=== PATIENT | male | born 1960 | race Caucasian/White ===

== ENCOUNTER 2017-05-13 17:04 | Inpatient (IN) | payer BC ==
[2017-05-13] MEDS ORDERED: RX INFO: IV CONTRAST WAS GIVEN 1 EACH MISC MISCELLANE PRN (17:17)
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
[2017-05-13] MEDS ORDERED: ETOMIDATE 2 MG/ML 10 ML VIAL IVP STA (17:40)
[2017-05-13 17:44] LABS: Glucose,Whole Blood 91 mg/dL (75-99)
[2017-05-13] MEDS ORDERED: MORPHINE SULFATE 4 MG/ML SYRINGE IVP STA (17:46)
[2017-05-13 17:48] LABS: Basophils # (A) 0.1 k/uL (0-0.2); Basophils % (A) 1 %; Eosinophils # (A) 0.3 k/uL (0-0.7); Eosinophils % (A) 5 %; HCT 43.2 % (39.0-53.0); HGB 14.5 gm/dL (13.0-17.5); Lymphocytes # (A) 1.7 k/uL (1.0-4.8); Lymphocytes % (A) 27 %; MCH 32.8 pg (25.0-35.0); MCHC 33.5 g/dL (31.0-37.0); MCV 97.9 fL (80.0-100.0); Mean Platelet Volume 7.2; Monocytes # (A) 0.4 k/uL (0-1.0); Monocytes % (A) 6 %; Neutrophils # (A) 3.6 k/uL (1.3-7.7); Neutrophils % (A) 58 %; Platelet Count 267 k/uL (150-450); RBC 4.41 m/uL (4.30-5.90); RDW 13.6 % (11.5-15.5); WBC 6.1 k/uL (3.8-10.6)
[2017-05-13 17:59] LABS: ALT 50 U/L (21-72); AST 61 U/L (17-59); Albumin 4.6 g/dL (3.5-5.0); Alkaline Phosphatase 75 U/L (38-126); Amylase 66 U/L (30-110); Anion Gap 17 mmol/L; Blood Urea Nitrogen 15 mg/dL (9-20); Calcium 9.6 mg/dL (8.4-10.2); Carbon Dioxide 20 mmol/L (22-30); Chloride 109 mmol/L (98-107); Glucose 91 mg/dL (74-99); Lipase 198 U/L (23-300); Potassium 4.6 mmol/L (3.5-5.1); Sodium 146 mmol/L (137-145); Total Bilirubin 0.5 mg/dL (0.2-1.3); Total Protein 7.7 g/dL (6.3-8.2)
[2017-05-13 18:00] LABS: Partial Thromboplastin Time 22.7 sec (22.0-30.0); Prothrombin Time 10.2 sec (9.0-12.0)
[2017-05-13 18:02] LABS: Creatine Kinase 178 U/L (55-170)
[2017-05-13 18:04] LABS: Alcohol 260 mg/dL
[2017-05-13 18:13] LABS: Creatine Kinase MB 1.3 ng/mL (0.0-2.4); Troponin I <0.012 ng/mL (0.000-0.034)
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
--- NOTE | 2017-05-13 18:46 | XR ---
EXAMINATION TYPE: XR ankle complete LT DATE OF EXAM: 05/13/2017 CLINICAL HISTORY: Post reduction of the trimalleolar displaced fracture TECHNIQUE: Frontal, lateral and oblique images of the left ankle are obtained. COMPARISON: Left ankle x-ray earlier today.. FINDINGS: Overlying fiberglass cast material is seen which is noted to lower radiographic sensitivity . Acute transverse fracture through medial malleolus is redemonstrated. Acute comminuted fracture lat eral malleolus is again seen. Oblique fracture deformity posterior malleolus is redemonstrated. There is marked improved alignment after reduction, there is still slight posterior translation of the vera us relative to distal tibia. Improved ankle mortise symmetry there is present after reduction with so me lateral narrowing remaining present. IMPRESSION: There is marked improved alignment after reduction and casting of acute displaced trimal leolar fracture.
[2017-05-13] MEDS ORDERED: NALOXONE 0.4 MG/ML 1 ML VIAL IV PRN (18:53)
[2017-05-13] MEDS ORDERED: MORPHINE SULFATE 4 MG/ML SYRINGE IVP PRN (18:53)
[2017-05-13] MEDS ORDERED: SODIUM CHLORIDE 0.9% 1,000 ML IV SCH (19:00)
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
[2017-05-13 20:21] LABS: Appearance,Urine Clear (Clear); Bilirubin,Urine Negative (Negative); Blood,Urine Negative (Negative); Color,Urine Colorless; Glucose,Urine (UA) Negative (Negative); Ketones,Urine Negative (Negative); Leukocyte Esterase,Urine Negative (Negative); Nitrite,Urine Negative (Negative); Protein,Urine Negative (Negative); Specific Gravity,Urine 1.016 (1.001-1.035); Urobilinogen,Urine <2.0 mg/dL (<2.0)
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
[2017-05-13 20:32] LABS: Cocaine Screen,Urine Not Detected (NotDetected); Phencyclidine Screen,Urine Not Detected (NotDetected); Urn Cannabinoid Scrn Detected (NotDetected)
[2017-05-13 20:33] LABS: Amphetamine Screen,Urine Not Detected (NotDetected); Barbiturate Screen,Urine Not Detected (NotDetected); Benzodiazepines Screen,Urine Not Detected (NotDetected); Methadone Screen, Urine Not Detected (NotDetected); Opiate Screen,Urine Detected (NotDetected); Oxycodone Screen, Urine Not Detected (NotDetected); Tricyclic Antidepressant,Urine Not Detected (NotDetected)
[2017-05-13] MEDS: MORPHINE SULFATE 4 MG/ML SYRINGE IVP PRN (22:01)
[2017-05-13] MEDS: HYDROcodone/APAP 5-325MG 1 EACH TAB PO PRN (23:25)
[2017-05-13] MEDS: SODIUM CHLORIDE 0.9% 1,000 ML IV SCH (23:26)
[2017-05-14] MEDS: MORPHINE SULFATE 4 MG/ML SYRINGE IVP PRN ×4 (01:03→20:14)
[2017-05-14] MEDS: HYDROcodone/APAP 5-325MG 1 EACH TAB PO PRN ×4 (06:31→23:55)
[2017-05-14] MEDS: SODIUM CHLORIDE 0.9% 1,000 ML IV SCH ×3 (08:24→23:25)
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
[2017-05-14 10:05] LABS: Basophils % (A) 1 %; Eosinophils # (A) 0.1 k/uL (0-0.7); Eosinophils % (A) 1 %; HCT 40.7 % (39.0-53.0); HGB 13.8 gm/dL (13.0-17.5); Lymphocytes # (A) 0.9 k/uL (1.0-4.8); Lymphocytes % (A) 12 %; MCH 33.5 pg (25.0-35.0); MCHC 33.9 g/dL (31.0-37.0); MCV 98.7 fL (80.0-100.0); Mean Platelet Volume 7.7; Monocytes # (A) 0.6 k/uL (0-1.0); Monocytes % (A) 8 %; Neutrophils # (A) 5.8 k/uL (1.3-7.7); Neutrophils % (A) 78 %; Platelet Count 235 k/uL (150-450); RBC 4.12 m/uL (4.30-5.90); RDW 13.7 % (11.5-15.5); WBC 7.4 k/uL (3.8-10.6)
[2017-05-14 10:14] LABS: ALT 43 U/L (21-72); AST 41 U/L (17-59); Albumin 4.1 g/dL (3.5-5.0); Alkaline Phosphatase 84 U/L (38-126); Anion Gap 12 mmol/L; Blood Urea Nitrogen 11 mg/dL (9-20); Calcium 9.1 mg/dL (8.4-10.2); Carbon Dioxide 24 mmol/L (22-30); Chloride 106 mmol/L (98-107); Glucose 116 mg/dL (74-99); Potassium 3.7 mmol/L (3.5-5.1); Sodium 142 mmol/L (137-145); Total Bilirubin 0.8 mg/dL (0.2-1.3)
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
[2017-05-14] MEDS: amLODIPine 10 MG TAB PO SCH (16:17)
[2017-05-14] MEDS: METOPROLOL TARTRATE 25 MG TAB PO SCH (16:17)
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
[2017-05-14] MEDS: ENOXAPARIN 30 MG/0.3 ML SYRINGE SQ SCH (18:02)
[2017-05-14] MEDS ORDERED: ATORVASTATIN 80 MG TAB PO SCH (21:00)
[2017-05-15] MEDS: MORPHINE SULFATE 4 MG/ML SYRINGE IVP PRN (04:47)
[2017-05-15] MEDS: HYDROcodone/APAP 5-325MG 1 EACH TAB PO PRN ×2 (07:13→13:03)
[2017-05-15] MEDS: METOPROLOL TARTRATE 25 MG TAB PO SCH (07:43)
[2017-05-15] MEDS: amLODIPine 10 MG TAB PO SCH (07:43)
[2017-05-15] MEDS: ENOXAPARIN 30 MG/0.3 ML SYRINGE SQ SCH (07:43)
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
[2017-05-15] MEDS ORDERED: LOSARTAN-HCTZ 50-12.5 MG 1 EACH TAB PO SCH (09:00)
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
--- NOTE | 2017-05-15 10:13 | P.DS ---
Providers Date of admission: 05/13/17 18:53 Attending physician: Magdalena Weber Consults: 05/13/17 18:53 Consult Physician Stat Consulting Provider: Johnny Noriega Consult Reason/Comments: Trimalleolar fracture Do you want consulting provider notified?: Yes 05/13/17 20:00 Consult Physician Stat Consulting Provider: Ja Eli Consult Reason/Comments: Abdominal aortic aneurysm Do you want consulting provider notified?: Yes 05/13/17 20:41 Consult Physician Urgent Consulting Provider: Elmo Thomas Consult Reason/Comments: medical care Do you want consulting provider notified?: Yes Primary care physician: Elmo Thomas Plan - Discharge Summary New Discharge Prescriptions: New Hydrocodone/Acetaminophen [[place] 5-325] 1 - 2 each PO Q6HR PRN #90 tab PRN Reason: Pain No Action Meloxicam 15 mg PO DAILY Metoprolol Tartrate [Lopressor] 25 mg PO DAILY Clopidogrel [Plavix] 75 mg PO DAILY #30 tab amLODIPine BESYLATE [Norvasc] 10 mg PO DAILY 30 Days tab Aspirin EC [Ecotrin] 325 mg PO DAILY #30 tablet. Atorvastatin [Lipitor] 80 mg PO HS Losartan/Hydrochlorothiazide [Hyzaar 100-25 Tablet] 1 tab PO DAILY Discharge Medication List Meloxicam 15 mg PO DAILY 10/21/13 [History] Metoprolol Tartrate [Lopressor] 25 mg PO DAILY 10/21/13 [History] Clopidogrel [Plavix] 75 mg PO DAILY #30 tab 10/22/13 [Rx] Aspirin EC [Ecotrin] 325 mg PO DAILY #30 tablet. 08/23/14 [Rx] amLODIPine BESYLATE [Norvasc] 10 mg PO DAILY 30 Days tab 08/23/14 [Rx] Atorvastatin [Lipitor] 80 mg PO HS 05/13/17 [History] Losartan/Hydrochlorothiazide [Hyzaar 100-25 Tablet] 1 tab PO DAILY 05/13/17 [ History] Hydrocodone/Acetaminophen [[place] 5-325] 1 - 2 each PO Q6HR PRN #90 tab 05/14/17 [Rx] Follow up Appointment(s)/Referral(s): Elmo Thomas DO [Primary Care Provider] - 1 Week Johnny Noriega MD [STAFF PHYSICIAN] - 05/16/17 9:00 am (Patient may follow-up with Dr. Noriega at [facility] in 1-2 days following discharge.) Ja Eli MD [STAFF PHYSICIAN] - 05/18/17 10:45 am Patient Instructions/Handouts: How to Stop Smoking (DC) Activity/Diet/Wound Care/Special Instructions: Crutches ordered through [facility]: #[phone] 1. Nonweightbearing on the left lower extremity 2. Elevate and apply ice for comfort support as needed over the left lower extremity 3. Keep her splint over the left lower extremity clean, dry, and intact 4. May use crutches to aid in ambulation as needed 5. Discharge if ok with Dr.. Eli/vascular surgery Discharge Disposition: HOME SELF-CARE
[2017-05-15] MEDS ORDERED: MULTIVITAMINS, THERA 1 EACH TAB PO SCH (12:00)
[2017-05-15] MEDS ORDERED: THIAMINE 100 MG TAB PO SCH (12:00)
[2017-05-15] MEDS: SODIUM CHLORIDE 0.9% 1,000 ML IV SCH (13:52)
[2017-05-15 14:49] VITALS: BP 128/69; PULSE 62; RESP 18; TEMP 98
== END 2017-05-15 17:58 | disposition home health service (06) | DRG 563 ==
LOC: EC 17:04 → 4MS4W 18:53
PROVIDERS: ADMIT Surgery; ATTEND Surgery
PROC: 0QSKXZZ Reposition Left Fibula, External Approach (ICD-10-PCS; principal; 2017-05-13)
PROC: 0QSHXZZ Reposition Left Tibia, External Approach (ICD-10-PCS; 2017-05-13)
DX: S82.852A Displaced trimalleolar fracture of left lower leg, initial encounter for closed fracture (principal); E87.2 Acidosis; E78.5 Hyperlipidemia, unspecified; F10.129 Alcohol abuse with intoxication, unspecified; F17.210 Nicotine dependence, cigarettes, uncomplicated; F41.9 Anxiety disorder, unspecified; I10 Essential (primary) hypertension; I25.10 Atherosclerotic heart disease of native coronary artery without angina pectoris; I25.2 Old myocardial infarction; I71.4 Abdominal aortic aneurysm, without rupture; K21.9 Gastro-esophageal reflux disease without esophagitis; M10.9 Gout, unspecified; M15.9 Polyosteoarthritis, unspecified; E66.9 Obesity, unspecified; Z68.34 Body mass index [BMI] 34.0-34.9, adult; Z79.02 Long term (current) use of antithrombotics/antiplatelets; Z79.82 Long term (current) use of aspirin; Z79.899 Other long term (current) drug therapy; Z95.5 Presence of coronary angioplasty implant and graft; Z82.49 Family history of ischemic heart disease and other diseases of the circulatory system; V86.52XA Driver of snowmobile injured in nontraffic accident, initial encounter; Y92.9 Unspecified place or not applicable; Y90.8 Blood alcohol level of 240 mg/100 ml or more
CPT/HCPCS: 27818; 36415; 70450; 71045; 71260; 72125; 72170; 74177; 80053; 80306; 80320; 81003; 82150; 82550; 82553; 83605; 83690; 84484; 85025; 85610; 85730; 86850; 86900; 86901; 93005; 96374; 99156; 99291

== ENCOUNTER 2017-05-24 11:06 | Day surgery (SDC) | payer BC ==
[2017-05-19 12:16] VITALS: BMI 32.5
[~2017-05-24 11:06] MED LIST: HYDROmorphone 0.5 MG/0.5 ML SYRINGE IVP PRN; LACTATED RINGERS 1,000 ML IV SCH; ONDANSETRON 4 MG/2 ML VIAL IVP PRN; ceFAZolin IN SWFI 2 GM/20 ML SYRINGE IVP ONE
[2017-05-24 11:29] VITALS: RESP 16
[2017-05-24] MEDS ORDERED: ONDANSETRON 4 MG/2 ML VIAL ONE ×2 (12:03→12:06)
[2017-05-24] MEDS ORDERED: LIDOCAINE 1% 20 ML VIAL (10MG/ML) FOR IV START INTRADERMA ONE (12:04)
[2017-05-24] MEDS ORDERED: HYDROmorphone (PF) 1 MG/ML ONE (12:06)
[2017-05-24] MEDS ORDERED: MIDAZOLAM 2 MG/2 ML VIAL ONE (12:06)
[2017-05-24] MEDS ORDERED: PROPOFOL 10 MG/ML 20 ML VIAL IV ONE (12:06)
[2017-05-24] MEDS ORDERED: DEXAMETHASONE SOD PHOS (MDV) 100 MG/10 ML VIAL ONE (12:06)
[2017-05-24] MEDS ORDERED: LIDOCAINE 1% INJ 10MG/ML (20 ML MDV) ONE (12:06)
[2017-05-24] MEDS ORDERED: fentaNYL (PF) 50 MCG/ML 2 ML AMP ONE (12:06)
[2017-05-24] MEDS ORDERED: BUPIVACAINE (PF) 0.25% 30 ML VIAL SQ ONE (13:28)
[2017-05-24 14:02] VITALS: TEMP 98.5
[2017-05-24] MEDS: fentaNYL (PF) 50 MCG/ML 2 ML AMP IVP ONE ×2 (14:05→14:19)
[2017-05-24] MEDS ORDERED: LACTATED RINGERS 1,000 ML IV ONE ×2 (14:10)
--- NOTE | 2017-05-24 14:26 | FL ---
EXAMINATION TYPE: FL guidance operating room DATE OF EXAM: 05/24/2017 CLINICAL HISTORY: Open reduction internal fixation of the left ankle TECHNIQUE: Fluoroscopy. COMPARISON: None. FINDINGS/IMPRESSION: Fluoroscopic guidance was provided during procedure performed by Dr. Noriega. A total of 80 seconds of fluoroscopic time was utilized during the procedure and 3 spot images was acqu ired.
[2017-05-24] MEDS ORDERED: KETOROLAC 30 MG/ML 1 ML VIAL IVP ONE (14:42)
[2017-05-24] MEDS: MEPERIDINE 50 MG/ML SYRINGE IVP ONE ×2 (14:42→14:45)
--- NOTE | 2017-05-24 14:49 | P.OP ---
Date of Procedure: 05/24/17 Procedure(s) Performed: PREOPERATIVE DIAGNOSES: 1. Left ankle trimalleolar fracture POSTOPERATIVE DIAGNOSES: Left ankle trimalleolar fracture PROCEDURES PERFORMED: 1. Left ankle lateral malleolus fracture open reduction and internal fixation. 2. Left ankle medial malleolus fracture open reduction and internal fixation 3. Left ankle posterior malleolus fracture closed treatment ANESTHESIA: pre press manager: Cinthia Jones PA-C (assistance with exposure, hemostasis, retraction, fixation, closure, dressing, splint) COMPLICATIONS: None ESTIMATED BLOOD LOSS: Less than 10 mL. TOURNIQUET: approximately 70 minutes DISPOSITION: To post-anesthesia care unit INDICATIONS: The patient is a [], who presents to the operating room today for fixation of ankle fracture. The fracture is a trimalleolar fracture with initial significant displacement. He is status post closed reduction in the emergency room. [] has iced the ankle and elevated for approximately 10 days and is now ready for surgery. I have recommended open reduction and internal fixation of this ankle fracture. I have explained the details of this surgery thoroughly and also explained the potential risks and complications. These are inclusive of, but not limited to: bleeding, infection, scarring, discomfort, blood vessel and nerve damage, stiffness, weakness, arthritis, persistent limp, malunion, nonunion, need for further surgery, failure to relieve symptoms, persistence or worsening of problems, , and other risks. The patient is aware of these risks and agrees to proceed with surgery. The consent form has been signed. PROCEDURE: After appropriate consent was obtained, the patient was taken to the operating room and placed supine on the operating table. General anesthesia was initiated. The ankle was removed from the splint and examined for any signs of significant fracture blisters or swelling that would prevent continuation of the surgery. Skin appeared healthy and intact, swellling was moderate but not excessive. The limb was prepped and draped in the usual aseptic fashion with ChloraPrep, and the patient was given IV antibiotics. The tourniquet was then inflated to 350 mmHg after careful exsanguination of the limb. Time out was called, confirming patient identity, side, procedure, and administration of antibiotics. Incision was created laterally, centered over the fracture site, for a length of approximately 4 inches. The incision was carried down through skin and into subcutaneous tissues, and blunt dissection then proceeded down to fascia. Fascia was split in line with the incision and the peroneal muscles were retracted posteriorly. The fracture site was exposed with subperiosteal dissection for as much exposure of the bone as was necessary. Fracture hematoma was evacuated and the interior of the fracture site was meticulously cleansed with irrigation and manual extraction of organizing hematoma and bone debris. The fracture was minimally comminuted and oblique in orientation. The fracture was mobilized using a elizabeth elevator and reduction was accomplished using a bone clamp, which was also used to secure the fracture. Anatomic reduction was accomplished. An interfragmentary screw, anterior to posterior, was placed using lag technique. Next, a precontoured fibular plate from [employer] was selected for size and side. The proximal holes were filled with fully threaded 3.5 mm cortical screws. Distal holes were filled with 4 2.7 mm locking screws. No evidence of joint penetration on the mini-C-arm views was noted. Next, the medial malleolus was evaluated and treated. An incision was created for approximately 2.5 inches on the medial aspect of the ankle, and carried down through skin sharply and then bluntly using a dissecting scissor down to fascia and periosteum. The fracture fragment was able to be mobilized and secured with a [id number] reduction forceps. Subsequently, a guidepin was placed across the fracture site and several adjustments were made of this guidepin so that the position was perfect on C-arm imaging. The outer cortex was reamed, and appropriately sized 4.0 cannulated cancellus screw(s) with long threads were inserted over the guidepin until they were fully deployed. Final C -arm images were then taken, showing anatomic alignment of the mortise and medial malleolar fracture site. The fractures were noted to be in anatomic position and stress testing under C- arm imaging showed no significant migration, shift, or tilt of the talus with external rotation stress, hindfoot inversion or eversion. Posterior malleolar fracture remained minimally displaced. Screw lengths were noted to be appropriate and the incision was then irrigated thoroughly using normal saline. Tourniquet was deflated and hemostasis was obtained using electrocautery. Fascial closure was performed with 0-Vicryl suture, subcutaneous closure with 2- 0 Vicryl suture. Skin was closed with diego. Sterile dressing was applied and well padded, well molded short leg splint was applied with the ankle in neutral. Patient tolerated the procedure well and taken to recovery room in stable condition. Sponge and needle counts were correct.
[2017-05-24 15:21] VITALS: BP 152/96; PULSE 78
== END 2017-05-24 15:56 | disposition home or self-care (01) ==
LOC: OR 11:06
PROVIDERS: ATTEND Orthopaedic Surgery
DX: S82.852A Displaced trimalleolar fracture of left lower leg, initial encounter for closed fracture (principal); V86.92XA Unspecified occupant of snowmobile injured in nontraffic accident, initial encounter; I10 Essential (primary) hypertension; I71.4 Abdominal aortic aneurysm, without rupture; I25.10 Atherosclerotic heart disease of native coronary artery without angina pectoris; E78.2 Mixed hyperlipidemia; K21.9 Gastro-esophageal reflux disease without esophagitis; Z95.5 Presence of coronary angioplasty implant and graft; I25.2 Old myocardial infarction; Z79.82 Long term (current) use of aspirin; Z79.899 Other long term (current) drug therapy; Z79.1 Long term (current) use of non-steroidal anti-inflammatories (NSAID); Z79.02 Long term (current) use of antithrombotics/antiplatelets; F17.210 Nicotine dependence, cigarettes, uncomplicated
CPT/HCPCS: 73600; 27822; C1713; J2250; J2175; J2405; J2001; J3010; J1885; J1170; J1100; J2704; J0690

== ENCOUNTER → 2017-08-02 | Outpatient (CLI) | payer BC ==
[2017-08-02 17:06] LABS: HCT 46.4 % (39.0-53.0); HGB 15.5 gm/dL (13.0-17.5); MCH 33.3 pg (25.0-35.0); MCHC 33.4 g/dL (31.0-37.0); MCV 99.8 fL (80.0-100.0); Macrocytosis Slight; Mean Platelet Volume 7.2; Platelet Count 264 k/uL (150-450); RBC 4.65 m/uL (4.30-5.90); RDW 15.4 % (11.5-15.5); WBC 7.2 k/uL (3.8-10.6)
[2017-08-02 17:13] LABS: Anion Gap 14 mmol/L; Blood Urea Nitrogen 15 mg/dL (9-20); Carbon Dioxide 23 mmol/L (22-30); Chloride 107 mmol/L (98-107); Glucose 94 mg/dL (74-99); Potassium 4.2 mmol/L (3.5-5.1); Sodium 144 mmol/L (137-145)
[2017-08-02 17:14] LABS: ALT 64 U/L (21-72); AST 100 U/L (17-59); Albumin 4.6 g/dL (3.5-5.0); Alkaline Phosphatase 117 U/L (38-126); Calcium 9.5 mg/dL (8.4-10.2); Total Bilirubin 0.7 mg/dL (0.2-1.3); Total Protein 7.6 g/dL (6.3-8.2)
== END | disposition home or self-care (01) ==
LOC: LABWHC1 16:15
PROVIDERS: ATTEND Thoracic Surgery (Cardiothoracic Vascular Surgery)
DX: E63.8 Other specified nutritional deficiencies (principal)
CPT/HCPCS: 36415; 80053; 84134; 85027

== ENCOUNTER → 2017-09-13 | Outpatient (CLI) | payer BC ==
--- NOTE | 2017-09-13 16:33 | US ---
EXAMINATION TYPE: US venous doppler duplex LE LT DATE OF EXAM: 09/13/2017 4:28 PM COMPARISON: NONE CLINICAL HISTORY: I82.204 DVT. Left lower leg swelling SIDE PERFORMED: Left TECHNIQUE: The lower extremity deep venous system is examined utilizing real time linear array sonog jenise with graded compression, doppler sonography and color-flow sonography. VESSELS IMAGED: External Iliac Vein (EIV) Common Femoral Vein Deep Femoral Vein Greater Saphenous Vein * Femoral Vein Popliteal Vein Small Saphenous Vein * Proximal Calf Veins (* superficial vessels) Left Leg: Appears negative for DVT Grayscale, color doppler, spectral doppler imaging performed of the deep veins of the left lower extr emity. There is normal flow, compressibility, vascular waveforms. IMPRESSION: No ultrasound evidence for acute DVT in the left lower extremity.
== END | disposition home or self-care (01) ==
LOC: RADUSWWP 16:02
PROVIDERS: ATTEND Thoracic Surgery (Cardiothoracic Vascular Surgery)
DX: I82.402 Acute embolism and thrombosis of unspecified deep veins of left lower extremity (principal)

== ENCOUNTER → 2017-12-22 | Outpatient (CLI) | payer BC ==
[2017-12-22 07:43] LABS: RBC 4.15 m/uL (4.30-5.90); WBC 5.3 k/uL (3.8-10.6)
[2017-12-22 07:44] LABS: Basophils # (A) 0.1 k/uL (0-0.2); Basophils % (A) 1 %; Eosinophils # (A) 0.4 k/uL (0-0.7); Eosinophils % (A) 7 %; HGB 14.6 gm/dL (13.0-17.5); Lymphocytes # (A) 1.1 k/uL (1.0-4.8); Lymphocytes % (A) 21 %; MCH 35.1 pg (25.0-35.0); MCHC 33.8 g/dL (31.0-37.0); MCV 103.7 fL (80.0-100.0); Macrocytosis Moderate; Mean Platelet Volume 7.2; Monocytes # (A) 0.4 k/uL (0-1.0); Monocytes % (A) 7 %; Neutrophils # (A) 3.3 k/uL (1.3-7.7); Neutrophils % (A) 63 %; Platelet Count 289 k/uL (150-450); RDW 14.9 % (11.5-15.5)
[2017-12-22 07:48] LABS: INR 1.1 (<1.2); Prothrombin Time 10.6 sec (9.0-12.0)
[2017-12-22 08:10] LABS: Anion Gap 12 mmol/L; Carbon Dioxide 25 mmol/L (22-30); Chloride 105 mmol/L (98-107); Potassium 3.8 mmol/L (3.5-5.1); Sodium 142 mmol/L (137-145)
[2017-12-22 10:14] LABS: Blood Urea Nitrogen 18 mg/dL (9-20)
== END | disposition home or self-care (01) ==
LOC: LABWHC1 07:06
PROVIDERS: ATTEND Surgery
DX: Z01.812 Encounter for preprocedural laboratory examination (principal); Z79.01 Long term (current) use of anticoagulants
CPT/HCPCS: 36415; 80051; 82565; 84520; 85025; 85610

== ENCOUNTER → 2018-01-15 | Outpatient (CLI) | payer BC ==
[2018-01-15 07:46] LABS: Basophils # (A) 0.1 k/uL (0-0.2); Basophils % (A) 1 %; Eosinophils # (A) 0.3 k/uL (0-0.7); Eosinophils % (A) 4 %; HCT 44.1 % (39.0-53.0); HGB 14.4 gm/dL (13.0-17.5); Lymphocytes % (A) 15 %; MCH 33.7 pg (25.0-35.0); MCHC 32.7 g/dL (31.0-37.0); Macrocytosis Slight; Mean Platelet Volume 6.8; Monocytes # (A) 0.4 k/uL (0-1.0); Monocytes % (A) 7 %; Neutrophils # (A) 4.6 k/uL (1.3-7.7); Neutrophils % (A) 71 %; Platelet Count 279 k/uL (150-450); RBC 4.28 m/uL (4.30-5.90); RDW 14.2 % (11.5-15.5); WBC 6.5 k/uL (3.8-10.6)
[2018-01-15 07:47] LABS: INR 1.1 (<1.2); Prothrombin Time 10.6 sec (9.0-12.0)
[2018-01-15 08:04] LABS: Potassium 4.1 mmol/L (3.5-5.1)
== END ==
LOC: LABPAT 07:04
PROVIDERS: ATTEND Surgery
DX: Z01.812 Encounter for preprocedural laboratory examination (principal)
CPT/HCPCS: 36415; 80051; 85025; 85610

== ENCOUNTER 2018-01-19 09:05 | Inpatient (IN) | payer BC ==
[2018-01-11 09:36] VITALS: BMI 31.5
[~2018-01-19 09:05] MED LIST changes: -HYDROmorphone 0.5 MG/0.5 ML SYRINGE IVP PRN; +HYDROmorphone 1 MG/ML 1 ML SYRINGE IVP PRN; -LACTATED RINGERS 1,000 ML IV SCH; +LIDOCAINE 1% 20 ML VIAL (10MG/ML) FOR IV START INTRADERMA PRN; +NITROGLYCERIN-D5W PMX 50 MG in DEXTROSE/WATER 1 250ML.BAG IV SCH; -ONDANSETRON 4 MG/2 ML VIAL IVP PRN; +PHENYLEPHRINE 40 MG in SODIUM CHLORIDE 0.9% 250 ML IV SCH; +SCOPOLAMINE 1.5MG/72HR PATCH TRANSDERM ONE; -ceFAZolin IN SWFI 2 GM/20 ML SYRINGE IVP ONE
[2018-01-19] MEDS: LACTATED RINGERS 1,000 ML IV SCH ×3 (10:34→21:01)
[2018-01-19] MEDS: DEXAMETHASONE SOD PHOSPHATE 10 MG/ML 1 ML VIAL IV ONE ×2 (11:06→21:46)
[2018-01-19] MEDS: ONDANSETRON 4 MG/2 ML VIAL IVP ONE ×2 (11:06→21:46)
[2018-01-19] MEDS ORDERED: NALOXONE 0.4 MG/ML 1 ML VIAL IV PRN ×2 (12:55→17:12)
[2018-01-19] MEDS ORDERED: ONDANSETRON 4 MG/2 ML VIAL IVP PRN (12:55)
[2018-01-19] MEDS ORDERED: diphenhydrAMINE 25 MG CAP PO PRN (12:55)
[2018-01-19] MEDS ORDERED: PROPOFOL 10 MG/ML 20 ML VIAL IV ONE (14:10)
[2018-01-19] MEDS ORDERED: LACTATED RINGERS 1,000 ML IV ONE ×3 (14:10→16:21)
[2018-01-19] MEDS ORDERED: fentaNYL (PF) 50 MCG/ML 2 ML AMP ONE (14:10)
[2018-01-19] MEDS ORDERED: VECURONIUM 10 MG VIAL IV ONE (14:10)
[2018-01-19] MEDS ORDERED: SUCCINYLCHOLINE CHLORIDE VIAL 200 MG/10 ML VIAL IV ONE (14:10)
[2018-01-19] MEDS ORDERED: PHENYLEPHRINE-0.9% NACL SYG 1 MG/10 ML SYRINGE ONE (14:10)
[2018-01-19] MEDS ORDERED: GLYCOPYRROLATE 0.2 MG/ML 2 ML VIAL ONE (14:10)
[2018-01-19] MEDS ORDERED: NEOSTIGMINE 1 MG/ML 10 ML VIAL ONE (14:10)
[2018-01-19] MEDS ORDERED: MIDAZOLAM 2 MG/2 ML VIAL ONE (14:10)
[2018-01-19] MEDS: ceFAZolin IN SWFI 2 GM/20 ML SYRINGE IVP ONE ×3 (14:14→15:11)
[2018-01-19] MEDS ORDERED: GELATIN SPONGE,ABSORB (LARGE) 1 EACH SPONGE TOPICAL ONE (15:17)
[2018-01-19] MEDS ORDERED: THROMBIN (BOVINE) 5,000 UNIT VIAL TOPICAL ONE (15:17)
[2018-01-19] MEDS: ROPIVACAINE 250 MG, HYDROMORPHONE (PF) 5 MG in SODIUM CHLORIDE 0.9% 200 ML EPIDURAL PRN ×2 (16:36→18:10)
[2018-01-19] MEDS ORDERED: HYDROmorphone 1 MG/ML 1 ML SYRINGE IVP PRN (17:12)
--- NOTE | 2018-01-19 17:27 | P.OP ---
Date of Procedure: 01/19/18 Preoperative Diagnosis: Infrarenal saccular 5.8 cm abdominal aortic aneurysm Postoperative Diagnosis: Infrarenal inflammatory abdominal aortic aneurysm Procedure(s) Performed: Exploratory laparotomy with attempted aortic repair Anesthesia: DAVID Surgeon: Caden [employer]man [employer] Equipment Operator #1: Ja Eli Estimated Blood Loss (ml): 40 Pathology: none sent Condition: stable Disposition: other (Patient will follow-up in 2 weeks in the office at which point we will schedule him for endovascular aortic repair.) Indications for Procedure: 57-year-old gentleman with a saccular AAA which has been growing in size and is now 5.8 cm. He was seen in the office in long discussion was had with the patient about potential interventions including open versus endovascular. Patient chose open surgery and presents today for such procedure. Operative Findings: Large abdominal aortic aneurysm with severe inflammation consistent with inflammatory AAA. Difficult to dissect secondary to adhesions to all surrounding structures. Description of Procedure: After written informed consent was obtained the patient all risks benefits competitions were described the patient is brought to the operative suite and laid in a supine position. The area of the abdomen to the knees was prepped and draped in usual sterile fashion after appropriate anesthetic was performed per the anesthesiologist. A timeout was performed in normal fashion. Antibiotics were administered prior to incision. Midline laparotomy incision was created with a 10 blade scalpel from the subxiphoid region to just above the pelvis. Dissection was then carried down with electrocautery to the fascia. Fascia was incised and the abdomen was entered. Upon entrance in the abdomen the bowels were interrogated and appeared to be without any abnormalities. The liver was utilized and shown to have no significant disease. An Omni retractor was then placed and the small bowel was brought over to the right upper quadrant in normal fashion. Once the retroperitoneal area was exposed the aorta was located and palpated and seemed to be enlarged both extending to the left lateral wall as well as onto the right side of the abdomen just at the duodenal area. The retroperitoneum was then incised and attempt to dissect out the retroperitoneal space was performed with electrocautery. There was dense adhesions extending from the aorta all the way to the bifurcation as well as to the renal artery. Renal artery was unable to be dissected free due to the dense inflammatory adhesions. At this point for the safety of the patient secondary to his aneurysm is not symptomatic and it is amendable to endovascular repair it was decided to forego the rest of the procedure. Retroperitoneam was then closed with 2-0 Vicryl. The Omni retractor was then removed there was no active bleeding noted and the retroperitoneum was not expanding. The bowel was once again inspected and shown to have no abnormalities. Incision was then closed in a running fashion with 1-0 loop PDS. Skin was then closed with diego. Patient all procedure well and was sent to PACU for recovery.
[2018-01-19] MEDS ORDERED: LACTATED RINGERS 1,000 ML IV SCH (17:45)
[2018-01-19] MEDS: DOCUSATE 100 MG CAP PO SCH (21:05)
[2018-01-20] MEDS: HEPARIN SODIUM,PORCINE 5,000 UNIT/ML 1 ML VIAL SQ SCH ×4 (01:02→22:48)
[2018-01-20] MEDS: LACTATED RINGERS 1,000 ML IV SCH ×3 (06:09→21:16)
[2018-01-20 06:48] LABS: Basophils % (A) 0 %; Eosinophils % (A) 0 %; HCT 42.4 % (39.0-53.0); HGB 14.3 gm/dL (13.0-17.5); Lymphocytes % (A) 8 %; MCH 34.5 pg (25.0-35.0); MCHC 33.6 g/dL (31.0-37.0); MCV 102.5 fL (80.0-100.0); Macrocytosis Slight; Mean Platelet Volume 7.5; Monocytes # (A) 0.6 k/uL (0-1.0); Monocytes % (A) 5 %; Neutrophils # (A) 9.9 k/uL (1.3-7.7); Neutrophils % (A) 85 %; Platelet Count 275 k/uL (150-450); RBC 4.14 m/uL (4.30-5.90); RDW 13.6 % (11.5-15.5); WBC 11.6 k/uL (3.8-10.6)
[2018-01-20 07:31] LABS: ALT 43 U/L (21-72); AST 47 U/L (17-59); Albumin 3.7 g/dL (3.5-5.0); Alkaline Phosphatase 72 U/L (38-126); Anion Gap 9 mmol/L; Blood Urea Nitrogen 19 mg/dL (9-20); Calcium 9.3 mg/dL (8.4-10.2); Carbon Dioxide 24 mmol/L (22-30); Chloride 105 mmol/L (98-107); Glucose 121 mg/dL (74-99); Potassium 4.5 mmol/L (3.5-5.1); Sodium 138 mmol/L (137-145); Total Bilirubin 0.8 mg/dL (0.2-1.3); Total Protein 6.5 g/dL (6.3-8.2)
[2018-01-20] MEDS: CLOPIDOGREL 75 MG TAB PO SCH (09:07)
[2018-01-20] MEDS: ASPIRIN 325 MG TAB PO SCH (09:07)
[2018-01-20] MEDS: DOCUSATE 100 MG CAP PO SCH ×2 (09:07→21:17)
[2018-01-20] MEDS: amLODIPine 10 MG TAB PO SCH (09:07)
--- NOTE | 2018-01-20 09:25 | PN ---
PROGRESS NOTE Mr. Omar Herzog was seen this morning. The patient was scheduled to have aortobifemoral graft due to his infirmity aneurysm and peripheral fibrosis. Case was aborted and the patient is scheduled for aortic stent graft. The patient is doing well. No nausea, vomiting, has not passed gas yet. The patient is on IV which was continued. He has no pain. Patient's epidural will be DC'd. The patient will take IV for the pain and ambulate with help. MMODL / IJN: [id number] /
[2018-01-20] MEDS: HYDROcodone/APAP 5-325MG 1 EACH TAB PO PRN ×2 (10:31→21:16)
[2018-01-20] MEDS: METOPROLOL TARTRATE 25 MG TAB PO SCH (10:41)
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
[2018-01-21] MEDS: LACTATED RINGERS 1,000 ML IV SCH ×3 (02:58→19:53)
[2018-01-21] MEDS: amLODIPine 10 MG TAB PO SCH (08:36)
[2018-01-21] MEDS: HEPARIN SODIUM,PORCINE 5,000 UNIT/ML 1 ML VIAL SQ SCH ×3 (08:36→23:22)
[2018-01-21] MEDS: ASPIRIN 325 MG TAB PO SCH (08:36)
[2018-01-21] MEDS: DOCUSATE 100 MG CAP PO SCH ×2 (08:36→20:01)
[2018-01-21] MEDS: METOPROLOL TARTRATE 25 MG TAB PO SCH (08:36)
[2018-01-21] MEDS: CLOPIDOGREL 75 MG TAB PO SCH (08:36)
--- NOTE | 2018-01-21 12:51 | P.CONS ---
History of Present Illness - Reason for Consult Consult date: 01/20/18 Medical management - Chief Complaint Infrarenal saccular 5.8 cm abdominal aortic aneurysm - History of Present Illness 57-year-old gentleman with a saccular AAA which has been growing in size and is now 5.8 cm. He was seen in the office in long discussion was had with the patient about potential interventions including open versus endovascular. Patient chose open surgery and presents today for such procedure. Patient underwent exploratory laparotomy with attempted aortic aneurysm repair; intraoperatively patient was found to have dense inflammatory adhesions with surrounding structures; surgery was aborted for possible endovascular repair of aneurysm and later elective date Review of Systems Constitutional: Denies chills, Denies fever Eyes: denies blurred vision, denies discharge Ears, nose, mouth and throat: Denies headache, Denies vertigo Cardiovascular: Denies chest pain, Denies dyspnea on exertion, Denies shortness of breath Respiratory: Denies congestion, Denies cough Genitourinary: Denies dysuria, Denies nocturia, Denies polyuria Past Medical History Past Medical History: Coronary Artery Disease (CAD), Chest Pain / Angina, GERD/ Reflux, Hyperlipidemia, Hypertension, Myocardial Infarction (CT) Additional Past Medical History / Comment(s): AAA. Hx gout. States during testing for fractured ankle an anerysym was discovered in his chest, Last Myocardial Infarction Date:: 2010 History of Any Multi-Drug Resistant Organisms: None Reported Past Surgical History: Heart Catheterization With Stent, Orthopedic Surgery Additional Past Surgical History / Comment(s): LT WRIST SX NOT SURE IF HAS ANY METAL LEFT IN PLACE. Lt.ankle surgery, 11 screws, stent x1 Past Anesthesia/Blood Transfusion Reactions: Previous Problems w/ Anesthesia Additional Past Anesthesia/Blood Transfusion Reaction / Comm: "Takes a lot to put him out." Date of Last Stent Placement:: 2010 Smoking Status: Current some day smoker - Past Family History Father Family Medical History: Cancer Additional Family Medical History / Comment(s): AGE 72 STOAMCH CA W/ METS Mother Family Medical History: Hypertension Medications and Allergies Home Medications Medication Instructions Recorded Confirmed Type Metoprolol Tartrate [Lopressor] 25 mg PO QAM 10/21/13 01/19/18 History Clopidogrel [Plavix] 75 mg PO DAILY #30 tab 10/22/13 01/19/18 Rx Aspirin EC [Ecotrin] 325 mg PO DAILY #30 tablet. 08/23/14 01/19/18 Rx Losartan/Hydrochlorothiazide 1 tab PO QAM 05/13/17 01/19/18 History [Hyzaar 100-25 Tablet] amLODIPine BESYLATE [Norvasc] 10 mg PO QAM 05/19/17 01/19/18 History Atorvastatin Calcium [Lipitor] 40 mg PO HS 01/19/18 01/19/18 History Allergies Allergy/AdvReac Type Severity Reaction Status Date / Time No Known Allergies Allergy Verified 01/19/18 17:32 Physical Exam Vitals: Vital Signs Temp Pulse Pulse Resp BP BP BP 01/20/18 08:00 97.9 F 49 L 18 90/53 01/20/18 04:00 97.1 F L 44 L 18 106/56 01/20/18 00:00 97.0 F L 46 L 18 144/60 01/19/18 20:00 97.8 F 46 L 18 102/59 01/19/18 18:57 98.5 F 53 L 16 107/65 01/19/18 18:47 60 114/57 01/19/18 18:10 50 L 16 103/54 01/19/18 17:50 53 L 16 111/62 01/19/18 17:35 58 L 16 112/65 01/19/18 17:20 57 L 16 111/55 01/19/18 17:05 56 L 16 108/60 01/19/18 16:50 51 L 16 110/60 01/19/18 16:36 97.3 F L 60 16 114/57 Pulse Ox 01/20/18 08:00 01/20/18 04:00 98 01/20/18 00:00 97 01/19/18 20:00 96 01/19/18 18:57 93 L 01/19/18 18:47 01/19/18 18:10 97 01/19/18 17:50 97 01/19/18 17:35 98 01/19/18 17:20 99 01/19/18 17:05 99 01/19/18 16:50 98 01/19/18 16:36 94 L Intake and Output 01/20/18 01/20/18 01/20/18 06:59 14:59 22:59 Intake Total 600 222 Output Total 600 Balance 0 222 Intake: Intake, IV Titration 600 Amount Lactated Ringers 1,000 ml 600 @ 75 mls/hr IV .[id number] [facility] Rx#:[id number] Oral 222 Output: Urine 600 Other: Voiding Method Indwelling Catheter Urinal # Voids 0 Weight 109 kg - Constitutional General appearance: Present: average body habitus, cooperative, no acute distress - EENT Eyes: Present: anicteric sclerae, EOMI, PERRLA, normal appearance ENT: Present: hearing grossly normal, normal oropharynx Ears: bilateral: normal - Neck Neck: Present: normal ROM. Absent: lymphadenopathy, rigidity, thyromegaly Carotids: negative: bruit present Thyroid: bilateral: normal size, negative: enlarged, nodule - Respiratory Respiratory: bilateral: CTA, negative: rales, rhonchi, wheezing - Cardiovascular Rhythm: regular Heart sounds: normal: S1, S2 Abnormal Heart Sounds: Absent: systolic murmur, diastolic murmur - Gastrointestinal General gastrointestinal: Present: normal bowel sounds, soft. Absent: distended , organomegaly, tenderness - Genitourinary Genitourinary Comment(s): deferred - Integumentary Integumentary: Present: normal turgor. Absent: jaundiced, rash, ulcer - Neurologic Neurologic: Present: CNII-XII intact. Absent: focal deficits - Musculoskeletal Musculoskeletal: Present: gait normal, strength equal bilaterally - Psychiatric Psychiatric: Present: A&O x's 3, appropriate affect, intact judgment & insight Results CBC & Chem 7: 01/20/18 06:01 01/20/18 06:01 Labs: Abnormal Lab Results - Last 24 Hours (Table) 01/20/18 01/20/18 Range/Units 06:01 06:01 WBC 11.6 H (3.8-10.6) k/uL RBC 4.14 L (4.30-5.90) m/uL MCV 102.5 H (80.0-100.0) fL Neutrophils # 9.9 H (1.3-7.7) k/uL Glucose 121 H (74-99) mg/dL Assessment and Plan Assessment: 1. Infrarenal saccular abdominal aortic aneurysm - Patient is status post exploratory laparotomy with attempted aortic aneurysm repair 2. Hypertension; stable on amlodipine 10 mg daily along with metoprolol 25 mg daily 3. Hyperlipidemia 4. Coronary artery disease; status post stent placement - Continue with aspirin, Plavix, beta blockers 5. Constipation; continue with Colace 100 mg twice a day 6. DVT prophylaxis; SCDs/ subcu heparin CODE STATUS; full code Time with Patient: Greater than 30
--- NOTE | 2018-01-21 14:02 | PN ---
PROGRESS NOTE The patient is seen in the room today and doing well. He is tolerating liquid diet well. Abdomen is soft. Isaac catheter has been removed. We will watch today and most likely patient will go home tomorrow. MMODL / IJN: [id number] /
[2018-01-21] MEDS: HYDROcodone/APAP 5-325MG 1 EACH TAB PO PRN ×2 (16:18→23:21)
[2018-01-22] MEDS: LACTATED RINGERS 1,000 ML IV SCH ×2 (06:22→11:39)
[2018-01-22] MEDS: ASPIRIN 325 MG TAB PO SCH (09:15)
[2018-01-22] MEDS: METOPROLOL TARTRATE 25 MG TAB PO SCH (09:16)
[2018-01-22] MEDS: HEPARIN SODIUM,PORCINE 5,000 UNIT/ML 1 ML VIAL SQ SCH (09:16)
[2018-01-22] MEDS: CLOPIDOGREL 75 MG TAB PO SCH (09:16)
[2018-01-22] MEDS: amLODIPine 10 MG TAB PO SCH (09:16)
[2018-01-22] MEDS: DOCUSATE 100 MG CAP PO SCH (09:16)
[2018-01-22] MEDS: HYDROcodone/APAP 5-325MG 1 EACH TAB PO PRN (10:37)
[2018-01-22 10:51] VITALS: RESP 18
[2018-01-22 13:28] VITALS: BP 115/69; PULSE 55; TEMP 98.1
--- NOTE | 2018-01-22 13:51 | P.PN ---
Subjective Progress Note Date: 01/22/18 Patient examined at the bedside. Denies pain or discomfort. Denies shortness of breath. Denies chest pain. Denies nausea or vomiting. Patient has been ambulating in the hallways. Reports passing flatus. No bowel movement as of yet. Objective - Vital Signs Vital signs: Vital Signs Temp 98.2 F 01/21/18 16:00 Pulse 64 01/22/18 04:00 Resp 16 01/22/18 04:00 BP 170/87 01/22/18 04:00 Pulse Ox 98 01/22/18 04:00 Intake & Output 01/21/18 01/22/18 01/22/18 18:59 06:59 18:59 Intake Total 340 600 240 Output Total 1 Balance 340 599 240 Weight 100.9 kg Intake: Oral 340 600 240 Output: Gastric Drainage 1 Other: Voiding Method Toilet Urinal # Voids 1 1 - Constitutional General appearance: Present: cooperative, no acute distress - EENT Eyes: Present: PERRLA - Respiratory Respiratory: bilateral: CTA, negative: rales, rhonchi, wheezing - Cardiovascular Rhythm: regular Heart sounds: normal: S1, S2 - Gastrointestinal General gastrointestinal: Present: normal bowel sounds - Integumentary Integumentary: Present: normal - Neurologic Neurologic: Present: CNII-XII intact - Musculoskeletal Musculoskeletal: Present: gait normal, strength equal bilaterally - Psychiatric Psychiatric: Present: A&O x's 3 - Labs CBC & Chem 7: 01/20/18 06:01 01/20/18 06:01 Assessment and Plan Plan: ASSESSMENT: Abdominal aortic aneurysm, s/p exploratory laparotomy with attempted aortic aneurysm repair Hypertension Hyperlipidemia Coronary artery disease with previous stent placement PLAN: Patient is stable for discharge from a medical standpoint when cleared by admitting/attending physician Nurse practitioner note has been reviewed by physician. Signing provider agrees with the documented findings, assessment, and plan of care.
== END 2018-01-22 14:23 | disposition home health service (06) | DRG 264 ==
LOC: 2ORMAIN 09:05 → 3SCARD 18:25
PROVIDERS: ADMIT Surgery; ATTEND Surgery
PROC: 0WJG0ZZ Inspection of Peritoneal Cavity, Open Approach (ICD-10-PCS; principal; 2018-01-19 12:45)
DX: I71.4 Abdominal aortic aneurysm, without rupture (principal); E78.5 Hyperlipidemia, unspecified; F17.210 Nicotine dependence, cigarettes, uncomplicated; I10 Essential (primary) hypertension; I25.10 Atherosclerotic heart disease of native coronary artery without angina pectoris; I25.2 Old myocardial infarction; K21.9 Gastro-esophageal reflux disease without esophagitis; K59.00 Constipation, unspecified; K66.0 Peritoneal adhesions (postprocedural) (postinfection); M10.9 Gout, unspecified; Z79.02 Long term (current) use of antithrombotics/antiplatelets; Z79.82 Long term (current) use of aspirin; Z79.899 Other long term (current) drug therapy; Z95.5 Presence of coronary angioplasty implant and graft; Z82.49 Family history of ischemic heart disease and other diseases of the circulatory system; Z80.0 Family history of malignant neoplasm of digestive organs; Z80.8 Family history of malignant neoplasm of other organs or systems; Z53.9 Procedure and treatment not carried out, unspecified reason
CPT/HCPCS: 80053; 85025; 86850; 86891; 86900; 86901

== ENCOUNTER 2018-04-20 07:32 | Inpatient (IN) | payer BC ==
[2018-04-18 16:48] VITALS: BMI 31.5
[~2018-04-20 07:32] MED LIST changes: +ALPRAZolam 0.25 MG TAB PO PRN; +ALPRAZolam 0.5 MG TAB PO PRN; +DEXAMETHASONE SOD PHOSPHATE 10 MG/ML 1 ML VIAL IV ONE; +HYDROmorphone 0.5 MG/0.5 ML SYRINGE IVP PRN; -HYDROmorphone 1 MG/ML 1 ML SYRINGE IVP PRN; +LACTATED RINGERS 1,000 ML IV SCH; -LIDOCAINE 1% 20 ML VIAL (10MG/ML) FOR IV START INTRADERMA PRN; +MIDAZOLAM (PF) 2 MG/2 ML VIAL IV PRN; -NITROGLYCERIN-D5W PMX 50 MG in DEXTROSE/WATER 1 250ML.BAG IV SCH; +ONDANSETRON 4 MG/2 ML VIAL IVP ONE; -PHENYLEPHRINE 40 MG in SODIUM CHLORIDE 0.9% 250 ML IV SCH; +SODIUM CHLORIDE 0.9% 1,000 ML in EMPTY BAG 1 BAG IV ONE
[2018-04-20 09:13] LABS: Basophils # (A) 0.1 k/uL (0-0.2); Basophils % (A) 1 %; Eosinophils # (A) 0.4 k/uL (0-0.7); Eosinophils % (A) 5 %; HCT 47.7 % (39.0-53.0); HGB 15.9 gm/dL (13.0-17.5); Lymphocytes # (A) 1.3 k/uL (1.0-4.8); Lymphocytes % (A) 19 %; MCH 33.3 pg (25.0-35.0); MCHC 33.4 g/dL (31.0-37.0); MCV 99.7 fL (80.0-100.0); Macrocytosis Slight; Mean Platelet Volume 6.6; Monocytes # (A) 0.4 k/uL (0-1.0); Monocytes % (A) 6 %; Neutrophils # (A) 4.8 k/uL (1.3-7.7); Neutrophils % (A) 67 %; Platelet Count 286 k/uL (150-450); RBC 4.79 m/uL (4.30-5.90); RDW 15.9 % (11.5-15.5); WBC 7.2 k/uL (3.8-10.6)
[2018-04-20 09:31] LABS: Anion Gap 12 mmol/L; Blood Urea Nitrogen 19 mg/dL (9-20); Calcium 10.3 mg/dL (8.4-10.2); Carbon Dioxide 24 mmol/L (22-30); Chloride 108 mmol/L (98-107); Glucose 103 mg/dL (74-99); Potassium 4.1 mmol/L (3.5-5.1); Sodium 144 mmol/L (137-145)
[2018-04-20] MEDS ORDERED: ceFAZolin IN SWFI 2 GM/20 ML SYRINGE IVP STA (10:00)
[2018-04-20] MEDS ORDERED: PROPOFOL 10 MG/ML 20 ML VIAL IV ONE (11:07)
[2018-04-20] MEDS ORDERED: PROTAMINE SULFATE 10 MG/ML 5 ML VIAL IV ONE (11:07)
[2018-04-20] MEDS ORDERED: NEOSTIGMINE 1 MG/ML 10 ML VIAL ONE (11:07)
[2018-04-20] MEDS ORDERED: ROCURONIUM BROMIDE 10 MG/ML 10 ML VIAL IV ONE (11:07)
[2018-04-20] MEDS ORDERED: PHENYLEPHRINE-0.9% NACL SYG 1 MG/10 ML SYRINGE ONE (11:07)
[2018-04-20] MEDS ORDERED: fentaNYL (PF) 50 MCG/ML 2 ML AMP ONE (11:07)
[2018-04-20] MEDS ORDERED: SUCCINYLCHOLINE CHLORIDE VIAL 200 MG/10 ML VIAL IV ONE (11:07)
[2018-04-20] MEDS ORDERED: HEPARIN SODIUM,PORCINE 10,000 UNIT/ML 1 ML VIAL ONE (11:07)
[2018-04-20] MEDS ORDERED: MIDAZOLAM 2 MG/2 ML VIAL ONE (11:07)
[2018-04-20] MEDS ORDERED: GLYCOPYRROLATE 0.2 MG/ML 2 ML VIAL ONE (11:07)
[2018-04-20] MEDS ORDERED: IOPAMIDOL-250 100ML BTL INTRAARTER ONE (12:55)
--- NOTE | 2018-04-20 13:16 | P.OP ---
Date of Procedure: 04/20/18 Preoperative Diagnosis: Asymptomatic infrarenal abdominal aortic aneurysm 6.5 cm Postoperative Diagnosis: Same Procedure(s) Performed: Endovascular aortic repair with AFX2 device under ultrasound guided access Implants: AFX2 graft Anesthesia: DAVID Surgeon: Caden Inman Estimated Blood Loss (ml): 10 IV fluids (ml): 900 Urine output (ml): 300 Pathology: none sent Condition: stable Disposition: PACU Indications for Procedure: 58-year-old gentleman with infrarenal abdominal aortic aneurysm measuring 6.5 cm presents to the hospital for elective aortic repair. Patient underwent attempt at open repair and had an inflammatory aneurysm which was unable to be fixed at that time due to high risk for injury. He presents today for his elective repair. Description of Procedure: After written informed consent was obtained the patient all risks benefits and competitions were described the patient was brought to the [employer] and laid in a supine position. The area of the groin and abdomen were prepped and draped in usual sterile fashion after appropriate anesthetic was performed per the anesthesiologist. A timeout was performed in normal fashion antibiotics were administered prior to incisions. Utilizing ultrasound bilateral common femoral arteries were visualized and shown to have some minimal calcification but were patent. Under ultrasound guidance a multipurpose needle was utilized and the artery was cannulated pulsatile blood flow was visualized guidewire was placed in the left common femoral artery. A 7-Armenian sheath was then guided over the guidewire. Guidewire and inner cannula were removed and the sheath was flushed for patency. Attention was then placed to the right common femoral artery once again utilizing ultrasound guidance the artery was cannulated wire was placed under direct visualization of fluoroscopy. Small incision was created and dissection was carried down to the vessel itself to allow for Perclose closure device placement. 2 Perclose closure devices were then placed in normal fashion at the 1:00 and 11 o'clock position. Once completed wire was once again replaced and 6-Armenian sheath was placed in the right common femoral artery. The sheath was then assessed for patency injured flushed easily. Barber catheter was then guided over the Glidewire and the Glidewire was removed and exchanged for a stiff Lunderquist wire. A 6-Armenian sheath was then removed and introducer AFX sheath was then placed into the right common femoral artery and advanced to just above the bifurcation. AFX to 25 mm x 90 was then placed into the sheath and guided to just above the bifurcation with the contralateral wire. Wire was then snared via the left common femoral artery and pulled externally. Once wire was external to the sheath it was then pulled down and the AFX 2 device was placed at the bifurcation. It was then seated in appropriate position and then deployed. Contralateral limb was then deployed in normal fashion by removing the outer yellow sheath followed by pigtail catheter to free the contralateral wire. Wire was then removed and replaced with an 035 Glidewire. Pigtail catheter was then placed above the renal arteries. Final deployment of the main body was then performed without competition. The introducer device was then removed followed by the obturator and the sheath was then advanced above the existing graft to the renal arteries. A Martinez cuff measuring 25 x 25 x 75 mm suprarenal fixation endograft was then placed within the deployment sheath to the area of the renal arteries. Angiogram was then obtained and renal arteries were marked and the Martinez cuff was deployed just beneath the renal arteries. The cuff was fully deployed and removed pigtail catheter was then retracted and placed into the true lumen of the graft to above the renal arteries. Final aortogram was then obtained demonstrating good flow through the graft without any evidence of endoleak and good seal of the aneurysm. All guidewires and catheters were then removed and Perclose closure device on the right was deployed in normal fashion for hemostasis. Hemostasis was assured. Utilizing an Angio-Seal 6-Armenian the left femoral artery was also closed for hemostasis. Ultrasound was then utilized to visualize the vessel distal to the femoral arteries which showed to have good pulsatile blood flow. Doppler signals noted in the posterior tibials bilaterally.
[2018-04-20] MEDS ORDERED: ALLOPURINOL 100 MG TAB PO PRN (13:25)
[2018-04-20] MEDS ORDERED: ONDANSETRON 4 MG/2 ML VIAL IVP ONE (13:41)
[2018-04-20 14:25] LABS: Basophils % (A) 0 %; Eosinophils # (A) 0.2 k/uL (0-0.7); Eosinophils % (A) 5 %; HCT 32.2 % (39.0-53.0); Lymphocytes # (A) 0.6 k/uL (1.0-4.8); Lymphocytes % (A) 14 %; MCH 33.8 pg (25.0-35.0); MCV 102.5 fL (80.0-100.0); Macrocytosis Slight; Mean Platelet Volume 7.4; Monocytes # (A) 0.2 k/uL (0-1.0); Monocytes % (A) 3 %; Neutrophils # (A) 3.6 k/uL (1.3-7.7); Neutrophils % (A) 77 %; Platelet Count 155 k/uL (150-450); RBC 3.14 m/uL (4.30-5.90); RDW 15.8 % (11.5-15.5); WBC 4.7 k/uL (3.8-10.6)
[2018-04-20] MEDS ORDERED: LACTATED RINGERS 1,000 ML IV ONE (14:25)
[2018-04-20 14:30] LABS: HGB 10.6 gm/dL (13.0-17.5)
[2018-04-20] MEDS ORDERED: hydrALAZINE HCL 20 MG/ML 1 ML VIAL IVP ONE (15:04)
--- NOTE | 2018-04-20 15:21 | IR ---
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 See dictated report from vascular surgery, 10.7 minutes fluoroscopy time, no intraoperative images obtained
[2018-04-20] MEDS ORDERED: HYDROmorphone 1 MG/ML 1 ML SYRINGE IVP ONE ×2 (15:34→15:39)
[2018-04-20 18:15] LABS: Glucose,Whole Blood 99 mg/dL (75-99)
--- NOTE | 2018-04-20 18:18 | P.CNPUL ---
History of Present Illness Consult date: 04/20/18 Requesting physician: Caden Inman Reason for consult: other (Postoperative ICU management) Chief complaint: Status post endovascular aortic repair with AF 2 device, under ultrasound- History of present illness: This is a 58-year-old white male with history of infrarenal aortic aneurysm measuring 6.5 cm, patient underwent previous attempt at open repair and had inflammatory aneurysm which was unable to the fixed at that time due to high risk of injury. Patient was brought in today for elective repair, this was done electively by Dr. Inman, postoperatively patient was admitted to the ICU , and I was asked to see him on consultation. Patient is known to have history of coronary artery disease, previous stents, history of hypertension, previous [place], and history of tobacco dependence syndrome, but no documented COPD. Presently the patient is relatively asymptomatic, denies any headaches, no blurred vision, no dizziness, no chest pain no palpitations, no nausea no vomiting no abdominal pain. Denies any dysuria and no frequency no urgency. Denies any aches and pains. Patient is known to be a [id number] smoker, and he is a relatively heavy drinker, drinks 4 beers on a regular basis daily. Review of Systems 14 point review of systems were obtained, please refer to pertinent positives in HPI, otherwise remaining systems are negative. Past Medical History Past Medical History: Coronary Artery Disease (CAD), Chest Pain / Angina, GERD/ Reflux, Hyperlipidemia, Hypertension, Myocardial Infarction ([place]) Additional Past Medical History / Comment(s): AAA. Hx gout. HX FX LT Ankle 2017. POSS HERNIA IN ABD. Last Myocardial Infarction Date:: 2010 History of Any Multi-Drug Resistant Organisms: None Reported Past Surgical History: Heart Catheterization With Stent, Orthopedic Surgery Additional Past Surgical History / Comment(s): LT WRIST SX, UNSURE IF ANY METAL PLACED. Lt.ankle surgery, 11 screws. Stent x1. EXPLORATORY LAPAROTOMY , UNABLE TO REPAIR AAA. Past Anesthesia/Blood Transfusion Reactions: Previous Problems w/ Anesthesia Additional Past Anesthesia/Blood Transfusion Reaction / Comment(s): "Takes a lot to put him out." Date of Last Stent Placement:: 2010 Smoking Status: Current some day smoker - Past Family History Father Family Medical History: Cancer Additional Family Medical History / Comment(s): AGE 72 STOAM[place] CA W/ METS Mother Family Medical History: Hypertension Medications and Allergies Home Medications Medication Instructions Recorded Confirmed Type Metoprolol Tartrate [Lopressor] 25 mg PO QAM 10/21/13 04/20/18 History Clopidogrel [Plavix] 75 mg PO DAILY #30 tab 10/22/13 04/18/18 Rx Aspirin EC [Ecotrin] 325 mg PO DAILY #30 tablet. 08/23/14 04/20/18 Rx Losartan/Hydrochlorothiazide 1 tab PO QAM 05/13/17 04/20/18 History [Hyzaar 100-25 Tablet] amLODIPine BESYLATE [Norvasc] 10 mg PO QAM 05/19/17 04/20/18 History Atorvastatin Calcium [Lipitor] 40 mg PO HS 01/19/18 04/20/18 History Calcium Carb/Magnesium Hydrox 1 - 2 each PO DIRECTED PRN 04/18/18 04/18/18 History [Rolaids Chewable Tablet] Febuxostat [Uloric] 40 mg PO DAILY PRN 04/18/18 04/20/18 History Allergies Allergy/AdvReac Type Severity Reaction Status Date / Time No Known Allergies Allergy Verified 04/20/18 08:50 Physical Exam Vitals: Vital Signs Temp Pulse Pulse Resp BP BP BP 04/20/18 17:16 61 16 155/78 04/20/18 16:56 57 L 16 155/88 158/85 04/20/18 16:30 54 L 16 146/74 153/74 04/20/18 16:00 62 18 143/77 137/68 04/20/18 15:46 60 16 135/66 137/68 04/20/18 15:30 59 L 18 155/77 157/71 04/20/18 15:12 51 L 18 150/78 160/85 04/20/18 15:04 44 L 16 188/104 170/86 04/20/18 14:45 46 L 16 152/68 168/91 04/20/18 14:30 47 L 18 157/66 168/69 04/20/18 14:15 45 L 18 147/67 154/80 04/20/18 14:06 43 L 16 149/68 163/79 04/20/18 13:45 40 L 18 127/66 141/64 04/20/18 13:26 96.8 F L 55 L 16 116/50 04/20/18 09:11 98 F 51 L 18 126/60 142/67 Pulse Ox 04/20/18 17:16 04/20/18 16:56 96 04/20/18 16:30 94 L 04/20/18 16:00 94 L 04/20/18 15:46 93 L 04/20/18 15:30 97 04/20/18 15:12 96 04/20/18 15:04 94 L 04/20/18 14:45 92 L 04/20/18 14:30 95 04/20/18 14:15 96 04/20/18 14:06 94 L 04/20/18 13:45 92 L 04/20/18 13:26 94 L 04/20/18 09:11 97 Intake and Output 04/20/18 04/20/18 04/20/18 06:59 14:59 22:59 Intake Total 1000 Output Total 600 300 Balance 400 -300 Intake: IV 1000 Output: Urine 600 300 Physical Exam: Revealed a 58-year-old white male, pleasant, in no distress. Head: Atraumatic normocephalic. HEENT:[Neck is supple.] [No neck masses.] [No thyromegaly.] [No JVD.] PERRLA, EOMI, no active. Chest: [Clear throughout, no crackles, no rhonchi, no wheezes.] Cardiac Exam: [Normal S1 and S2, no S3 gallop, no murmur.] Abdomen: [Soft, nontender, no megaly, no rebound, no guarding, normal bowel sounds.] Extremities: [No clubbing, no edema, no cyanosis.] Groin incisions are clean dry, sterile dressing noted in both groin areas. Neurological Exam: [No focal neurologic deficit.] Alert oriented 3. Psychiatric: Normal mood affect and mental status examination. Billie: No rashes. Results - Laboratory Findings CBC and BMP: 04/20/18 14:00 04/20/18 09:00 Abnormal lab findings: Abnormal Labs 04/20/18 04/20/18 04/20/18 09:00 09:00 14:00 RBC 3.14 L Hgb 10.6 L D Hct 32.2 L MCV 102.5 H RDW 15.9 H 15.8 H Lymphocytes # 0.6 L Chloride 108 H Glucose 103 H Calcium 10.3 H Assessment and Plan Assessment: Impression: 1 status post endovascular aortic repair with AF 2 device under ultrasound- guided access. Postoperative day #0. 2 benign essential hypertension 3 history of coronary artery disease and previous stent placement 4 history of alcohol abuse 5 tobacco dependence syndrome 6 dyslipidemia. Recommendation: Patient was seen and examined in the ICU, will recommend incentive spirometry, resume back his usual meds, consider placing the patient on the alcohol withdrawal protocol. No need for bronchodilators at this point, patient was counseled regarding smoking cessation, and we will continue to follow. Time with Patient: Greater than 30
[2018-04-20] MEDS: LACTATED RINGERS 1,000 ML IV SCH (19:52)
[2018-04-20] MEDS: HYDROcodone/APAP 5-325MG 1 EACH TAB PO PRN (21:00)
[2018-04-20] MEDS ORDERED: PRAVASTATIN SODIUM 40 MG TAB PO SCH (21:00)
[2018-04-20 23:07] LABS: Anion Gap 5 mmol/L; Blood Urea Nitrogen 14 mg/dL (9-20); Calcium 9.5 mg/dL (8.4-10.2); Carbon Dioxide 25 mmol/L (22-30); Chloride 107 mmol/L (98-107); Glucose 103 mg/dL (74-99); Potassium 4.1 mmol/L (3.5-5.1); Sodium 137 mmol/L (137-145)
[2018-04-21] MEDS: HYDROcodone/APAP 5-325MG 1 EACH TAB PO PRN ×3 (03:16→16:29)
[2018-04-21 05:15] LABS: Basophils # (A) 0.1 k/uL (0-0.2); Basophils % (A) 1 %; Eosinophils # (A) 0.1 k/uL (0-0.7); Eosinophils % (A) 2 %; HCT 42.6 % (39.0-53.0); Lymphocytes # (A) 0.5 k/uL (1.0-4.8); Lymphocytes % (A) 8 %; MCH 33.6 pg (25.0-35.0); MCHC 34.2 g/dL (31.0-37.0); MCV 98.2 fL (80.0-100.0); Macrocytosis Slight; Mean Platelet Volume 7.6; Monocytes # (A) 0.4 k/uL (0-1.0); Monocytes % (A) 7 %; Neutrophils # (A) 5.1 k/uL (1.3-7.7); Neutrophils % (A) 81 %; Platelet Count 185 k/uL (150-450); RBC 4.34 m/uL (4.30-5.90); RDW 15.3 % (11.5-15.5); WBC 6.3 k/uL (3.8-10.6)
[2018-04-21 05:19] LABS: HGB 14.6 gm/dL (13.0-17.5)
[2018-04-21 05:25] LABS: Anion Gap 7 mmol/L; Blood Urea Nitrogen 13 mg/dL (9-20); Calcium 9.3 mg/dL (8.4-10.2); Carbon Dioxide 24 mmol/L (22-30); Chloride 106 mmol/L (98-107); Glucose 105 mg/dL (74-99); Magnesium 1.3 mg/dL (1.6-2.3); Potassium 3.9 mmol/L (3.5-5.1); Sodium 137 mmol/L (137-145)
[2018-04-21] MEDS: MAGNESIUM SULFATE-D5W PMX 1 GM in DEXTROSE/WATER 1 100ML.BAG IVPB SCH ×5 (06:14→14:12)
[2018-04-21] MEDS: LACTATED RINGERS 1,000 ML IV SCH (06:19)
[2018-04-21] MEDS ORDERED: METOPROLOL TARTRATE 25 MG TAB PO SCH (09:00)
[2018-04-21] MEDS ORDERED: amLODIPine 10 MG TAB PO SCH (09:00)
[2018-04-21] MEDS ORDERED: CLOPIDOGREL 75 MG TAB PO SCH (09:00)
[2018-04-21] MEDS ORDERED: ASPIRIN 81 MG PO SCH (09:00)
[2018-04-21] MEDS ORDERED: LOSARTAN-HCTZ 50-12.5 MG 1 EACH TAB PO SCH (09:00)
--- NOTE | 2018-04-21 09:52 | PN ---
PROGRESS NOTE This is a 58-year-old gentleman who had a infrarenal aortic aneurysm. Patient went for aortic stent graft yesterday. The patient's vital signs are stable. Abdomen is soft. Bowel sounds present. Patient had decent pulse in the foot. Urine output is adequate. PLAN: We will DC the Isaac catheter, ambulate with help and after lunch patient can go home and follow in the office in 2 weeks. The patient is seen medically by Dr. Mar. Patient will continue his home medication. MMODL / IJN: [id number] /
--- NOTE | 2018-04-21 12:04 | P.PN ---
Subjective Progress Note Date: 04/21/18 Principal diagnosis: status post endovascular aortic repair, postoperative day #1 This is a 58-year-old white male with history of infrarenal aortic aneurysm measuring 6.5 cm, patient underwent previous attempt at open repair and had inflammatory aneurysm which was unable to the fixed at that time due to high risk of injury. Patient was brought in today for elective repair, this was done electively by Dr. Inman, postoperatively patient was admitted to the ICU , and I was asked to see him on consultation. Patient is known to have history of coronary artery disease, previous stents, history of hypertension, previous [place], and history of tobacco dependence syndrome, but no documented COPD. Presently the patient is relatively asymptomatic, denies any headaches, no blurred vision, no dizziness, no chest pain no palpitations, no nausea no vomiting no abdominal pain. Denies any dysuria and no frequency no urgency. Denies any aches and pains. Patient is known to be a [id number] smoker, and he is a relatively heavy drinker, drinks 4 beers on a regular basis daily. Patient was reevaluated today on 04/21/2018, seems to be doing well, relatively asymptomatic, no shortness of breath no cough no wheezing, and no significant pain.labs were reviewed and they seem to be normal.magnesium was noted to be a bit low, hence the patient will receive 2 g of magnesium sulfate today. Objective - Vital Signs Vital signs: Vital Signs Temp 98.0 F 04/21/18 04:00 Pulse 60 04/21/18 07:00 Resp 16 04/21/18 07:00 BP 133/73 04/21/18 02:00 Pulse Ox 96 04/21/18 07:00 Intake & Output 04/20/18 04/21/18 04/21/18 18:59 06:59 18:59 Intake Total 1000 1050 100 Output Total 900 1700 75 Balance 100 -650 25 Weight 104.6 kg Intake: IV 1000 300 100 Lactated Ringers 1,000 ml 300 @ 20 mls/hr IV .Q24H [facility] Rx#:[id number] Magnesium Sulfate-D5w Pmx 100 1 gm In Dextrose/Water 1 100ml.bag @ 100 mls/hr IVPB Q1H [facility] Rx#: [id number] Oral 750 Output: Urine 900 1700 75 Other: Voiding Method Indwelling Catheter ABP, PAP, CO, CI - Last Documented Arterial Blood Pressure 131/69 - Exam Physical Exam: Revealed a 58-year-old white male, pleasant, in no distress. Head: Atraumatic normocephalic. HEENT:[Neck is supple.] [No neck masses.] [No thyromegaly.] [No JVD.] PERRLA, EOMI, no active. Chest: [Clear throughout, no crackles, no rhonchi, no wheezes.] Cardiac Exam: [Normal S1 and S2, no S3 gallop, no murmur.] Abdomen: [Soft, nontender, no megaly, no rebound, no guarding, normal bowel sounds.] Extremities: [No clubbing, no edema, no cyanosis.] Groin incisions are clean dry, sterile dressing noted in both groin areas. Neurological Exam: [No focal neurologic deficit.] Alert oriented 3. Psychiatric: Normal mood affect and mental status examination. Billie: No rashes. - Labs CBC & Chem 7: 04/21/18 05:00 04/21/18 05:00 Labs: Abnormal Lab Results - Last 24 Hours (Table) 04/20/18 04/20/18 04/21/18 Range/Units 14:00 22:23 05:00 RBC 3.14 L (4.30-5.90) m/uL Hgb 10.6 L D (13.0-17.5) gm/dL Hct 32.2 L (39.0-53.0) % MCV 102.5 H (80.0-100.0) fL RDW 15.8 H (11.5-15.5) % Lymphocytes # 0.6 L 0.5 L (1.0-4.8) k/uL Glucose 103 H (74-99) mg/dL Magnesium (1.6-2.3) mg/dL 04/21/18 Range/Units 05:00 RBC (4.30-5.90) m/uL Hgb (13.0-17.5) gm/dL Hct (39.0-53.0) % MCV (80.0-100.0) fL RDW (11.5-15.5) % Lymphocytes # (1.0-4.8) k/uL Glucose 105 H (74-99) mg/dL Magnesium 1.3 L (1.6-2.3) mg/dL Assessment and Plan Assessment: Impression: 1 status post endovascular aortic repair with AF 2 device under ultrasound- guided access. Postoperative day #1 2 benign essential hypertension 3 history of coronary artery disease and previous stent placement 4 history of alcohol abuse 5 tobacco dependence syndrome 6 dyslipidemia. Recommendation: continue incentive spirometry, continue present meds, continue to monitor vital signs, patient is doing well overall, discharge planning will be decided upon by the admitting physician. At least the patient could be transferred out of the ICU to a monitor bed on selective. Time with Patient: Less than 30
[2018-04-21 16:04] VITALS: RESP 11; TEMP 98.3
[2018-04-21 17:38] VITALS: BP 115/83; PULSE 61
--- NOTE | 2018-04-24 22:17 | P.DS ---
Providers Date of admission: 04/20/18 07:32 Expected date of discharge: 04/21/18 Attending physician: Caden Inman DO Consults: 04/20/18 06:07 Consult to Anesthesia Routine Consulting Provider: Anesthesia,Services Consult Reason/Comments: General anesthesia for Aortic Stent procedure 04/20/18 13:23 Consult Physician Routine Consulting Provider: Elmo Thomas Consult Reason/Comments: medical management Do you want consulting provider notified?: Yes 04/20/18 13:27 Consult Physician Routine Consulting Provider: Mukesh Crystal Consult Reason/Comments: icu care Do you want consulting provider notified?: Yes Primary care physician: Elmo Thomas - Discharge Diagnosis(es) (1) Aneurysm of infrarenal abdominal aorta Status: Acute Priority: High (2) CAD (coronary artery disease) Status: Acute Priority: Medium (3) Hypertension Status: Acute Priority: Medium (4) Nicotine dependence Status: Acute Priority: Low Hospital Course: Endovascular aortic repair performed on 04/20/18 without issues and he was admitted for monitoring and pain control. He did well overnight, pain was controlled, he was tolerating diet and was discharged home in stable condition. Procedures: EVAR Patient Condition at Discharge: Good Plan - Discharge Summary Discharge Rx Participant: Yes New Discharge Prescriptions: New HYDROcodone/APAP 5-325MG [[place] 5-325] 1 each PO Q4HR PRN #30 tab PRN Reason: Pain Continue Metoprolol Tartrate [Lopressor] 25 mg PO QAM Clopidogrel [Plavix] 75 mg PO DAILY #30 tab Aspirin EC [Ecotrin] 325 mg PO DAILY #30 tablet. Losartan/Hydrochlorothiazide [Hyzaar 100-25 Tablet] 1 tab PO QAM amLODIPine BESYLATE [Norvasc] 10 mg PO QAM Atorvastatin Calcium [Lipitor] 40 mg PO HS Febuxostat [Uloric] 40 mg PO DAILY PRN PRN Reason: GOUT SX Calcium Carb/Magnesium Hydrox [Rolaids Chewable Tablet] 1 - 2 each PO DIRECTED PRN PRN Reason: GERD Discharge Medication List Metoprolol Tartrate [Lopressor] 25 mg PO QAM 10/21/13 [History] Clopidogrel [Plavix] 75 mg PO DAILY #30 tab 10/22/13 [Rx] Aspirin EC [Ecotrin] 325 mg PO DAILY #30 tablet. 08/23/14 [Rx] Losartan/Hydrochlorothiazide [Hyzaar 100-25 Tablet] 1 tab PO QAM 05/13/17 [ History] amLODIPine BESYLATE [Norvasc] 10 mg PO QAM 05/19/17 [History] Atorvastatin Calcium [Lipitor] 40 mg PO HS 01/19/18 [History] Calcium Carb/Magnesium Hydrox [Rolaids Chewable Tablet] 1 - 2 each PO DIRECTED PRN 04/18/18 [History] Febuxostat [Uloric] 40 mg PO DAILY PRN 04/18/18 [History] HYDROcodone/APAP 5-325MG [[place] 5-325] 1 each PO Q4HR PRN #30 tab 04/21/18 [Rx] Follow up Appointment(s)/Referral(s): Caden Inman DO [STAFF PHYSICIAN] - 2 Weeks Care Plan Goals (MU): Discharge if cleared by vascular surgery and pulmonology. [facility] or the admitting team to do the discharge summary for the patient Discharge Disposition: HOME SELF-CARE
== END 2018-04-21 18:02 | disposition home or self-care (01) | DRG 269 ==
LOC: 2ORMAIN 07:32 → 2SICU 17:33
PROVIDERS: ADMIT Surgery; ATTEND Surgery
PROC: 04V03D6 (ICD-10-PCS; principal; 2018-04-20 10:30)
DX: I71.4 Abdominal aortic aneurysm, without rupture (principal); E78.5 Hyperlipidemia, unspecified; F17.210 Nicotine dependence, cigarettes, uncomplicated; I10 Essential (primary) hypertension; I25.10 Atherosclerotic heart disease of native coronary artery without angina pectoris; I25.2 Old myocardial infarction; K21.9 Gastro-esophageal reflux disease without esophagitis; Z79.02 Long term (current) use of antithrombotics/antiplatelets; Z79.82 Long term (current) use of aspirin; Z79.899 Other long term (current) drug therapy; Z82.49 Family history of ischemic heart disease and other diseases of the circulatory system; Z95.5 Presence of coronary angioplasty implant and graft; Z80.1 Family history of malignant neoplasm of trachea, bronchus and lung
CPT/HCPCS: 34705; 80048; 83735; 85025; 85347; 86850; 86900; 86901

== ENCOUNTER 2018-11-05 23:08 | Emergency (ER) | payer BC ==
--- NOTE | 2018-11-06 00:01 | ED ---
Psych HPI - General Source: patient, EMS, RN notes reviewed Mode of arrival: EMS - History of Present Illness MD Complaint: other <Mukesh Gonzalez - Last Filed: 11/06/18 00:34> <Kristina Coburn - Last Filed: 11/06/18 05:51> - General Chief Complaint: Psychiatric Symptoms Stated Complaint: mental health Time Seen by Provider: 11/05/18 23:24 - History of Present Illness Initial Comments: This is a 58-year-old male was brought in by police under petition for alleging that he wanted to shoot himself. Patient states that he had been drinking with his roommate all day who was a female. She apparently was drinking a lot the patient states he has a 22 caliber pistol and wanted to shoot the small animal. He does state that his roommate was drinking more and more and was complaining about his pistol he states he jokingly stated that he would shoot himself if she wouldn't stop complaining. She then called the police and reported that he wanted to kill himself. The patient does admit to drinking upon arrival he states he is not depressed is not suicidal and that he regrets making the statement. Upon arrival his back was 0.119 he will go through the process of evaluation was he is sober. (Mukesh Gonzalez) - Related Data Home Medications Medication Instructions Recorded Confirmed Metoprolol Tartrate [Lopressor] 25 mg PO QAM 10/21/13 04/20/18 Losartan/Hydrochlorothiazide 1 tab PO QAM 05/13/17 04/20/18 [Hyzaar 100-25 Tablet] amLODIPine BESYLATE [Norvasc] 10 mg PO QAM 05/19/17 04/20/18 Atorvastatin Calcium [Lipitor] 40 mg PO HS 01/19/18 04/20/18 Calcium Carb/Magnesium Hydrox 1 - 2 each PO DIRECTED PRN 04/18/18 04/20/18 [Rolaids Chewable Tablet] Febuxostat [Uloric] 40 mg PO DAILY PRN 04/18/18 04/20/18 Previous Rx's Medication Instructions Recorded Clopidogrel [Plavix] 75 mg PO DAILY #30 tab 10/22/13 Aspirin EC [Ecotrin] 325 mg PO DAILY #30 tablet. 08/23/14 HYDROcodone/APAP 5-325MG [[place] 1 each PO Q4HR PRN #30 tab 04/21/18 5-325] Allergies Allergy/AdvReac Type Severity Reaction Status Date / Time No Known Allergies Allergy Verified 04/20/18 19:29 Review of Systems ROS Other: All systems not noted in ROS Statement are negative. <Mukesh Gonzalez - Last Filed: 11/06/18 00:34> ROS Other: All systems not noted in ROS Statement are negative. <Kristina Coburn - Last Filed: 11/06/18 05:51> ROS Statement: Those systems with pertinent positive or pertinent negative responses have been documented in the HPI. Past Medical History Past Medical History: Coronary Artery Disease (CAD), Chest Pain / Angina, GERD/Reflux, Hyperlipidemia, Hypertension, Myocardial Infarction (OK) Additional Past Medical History / Comment(s): AAA. Hx gout. HX FX LT Ankle 05/2017. POSS HERNIA IN ABD. Last Myocardial Infarction Date:: 2010 History of Any Multi-Drug Resistant Organisms: None Reported Past Surgical History: Heart Catheterization With Stent, Orthopedic Surgery Additional Past Surgical History / Comment(s): LT WRIST SX, UNSURE IF ANY METAL PLACED. Lt.ankle surgery, 11 screws. Stent x1. EXPLORATORY LAPAROTOMY 01/19/18, UNABLE TO REPAIR AAA. Past Anesthesia/Blood Transfusion Reactions: Previous Problems w/ Anesthesia Additional Past Anesthesia/Blood Transfusion Reaction / Comment(s): "Takes a lot to put him out." Date of Last Stent Placement:: 2010 Past Psychological History: Anxiety Smoking Status: Current some day smoker Past Alcohol Use History: Daily Past Drug Use History: Marijuana - Past Family History Father Family Medical History: Cancer Additional Family Medical History / Comment(s): AGE 72 STOAMCH CA W/ METS Mother Family Medical History: Hypertension <CarlosMukesh - Last Filed: 11/06/18 00:34> General Exam Limitations: no limitations General appearance: alert, in no apparent distress Head exam: Present: atraumatic, normocephalic, normal inspection Eye exam: Present: normal appearance, PERRL, EOMI. Absent: scleral icterus, conjunctival injection, periorbital swelling ENT exam: Present: normal exam, mucous membranes moist Neck exam: Present: normal inspection. Absent: tenderness, meningismus, lymphadenopathy Respiratory exam: Present: normal lung sounds bilaterally. Absent: respiratory distress, wheezes, rales, rhonchi, stridor Cardiovascular Exam: Present: regular rate, normal rhythm, normal heart sounds. Absent: systolic murmur, diastolic murmur, rubs, gallop, clicks GI/Abdominal exam: Present: soft, normal bowel sounds, other (He does demonstrate a ventral hernia which is chronic.). Absent: distended, tenderness, guarding, rebound, rigid Extremities exam: Present: normal inspection, full ROM, normal capillary refill. Absent: tenderness, pedal edema, joint swelling, calf tenderness Back exam: Present: normal inspection Neurological exam: Present: alert, oriented X3, CN II-XII intact Psychiatric exam: Present: normal affect, normal mood Skin exam: Present: warm, dry, intact, normal color. Absent: rash <Mukesh Gonzalez - Last Filed: 11/06/18 00:34> - General Exam Comments Initial Comments: This is a well-developed well-nourished awake alert oriented 3 male who does have the smell of alcohol conjoiners on his breath (Mukesh Gonzalez) Course <Mukesh Gonzalez - Last Filed: 11/06/18 00:34> Vital Signs 11/05/18 23:16 Temperature 97.6 F Pulse Rate 63 Respiratory 18 Rate Blood Pressure 141/82 O2 Sat by Pulse 100 Oximetry - Reevaluation(s) Reevaluation #1: 11/06/18 00:34 The patient's care will be endorsed to Dr. Coburn who will make the final disposition (Mukesh Gonzalez) Medical Decision Making <Kristina Coburn - Last Filed: 11/06/18 05:51> - Medical Decision Making She was seen and evaluated by EPS. Patient admitted to being intoxicated and having a pellet gun which he was threatening to shoot small animals with and then threatened to shoot somebody else. He made no attempts to shoot anybody. Please complicated gun. Patient denies any homicidal suicidal ideation. He denies that there are any other weapons at home. At this time EPS states that the patient is stable for discharge home. (Kristina Coburn) - Lab Data Lab Results 11/05/18 Range/Units 20:28 Urine Opiates Screen Not Detected (NotDetected) Ur Oxycodone Screen Not Detected (NotDetected) Urine Methadone Screen Not Detected (NotDetected) Ur Propoxyphene Screen Not Detected (NotDetected) Ur Barbiturates Screen Not Detected (NotDetected) U Tricyclic Antidepress Not Detected (NotDetected) Ur Phencyclidine Scrn Not Detected (NotDetected) Ur Amphetamines Screen Not Detected (NotDetected) U Methamphetamines Scrn Not Detected (NotDetected) U Benzodiazepines Scrn Not Detected (NotDetected) Urine Cocaine Screen Not Detected (NotDetected) U Marijuana (THC) Screen Detected H (NotDetected) Disposition <Mukesh Gonzalez - Last Filed: 11/06/18 00:34> Is patient prescribed a controlled substance at d/c from ED?: No <Kristina Coburn - Last Filed: 11/06/18 05:51> Clinical Impression: Alcohol intoxication Disposition: HOME SELF-CARE Condition: Stable Instructions (If sedation given, give patient instructions): Alcohol Intoxication (ED) Referrals: Elmo Thomas DO [Primary Care Provider] - 1-2 days
[2018-11-06 00:17] LABS: Amphetamine Screen,Urine Not Detected (NotDetected); Barbiturate Screen,Urine Not Detected (NotDetected); Benzodiazepines Screen,Urine Not Detected (NotDetected); Cocaine Screen,Urine Not Detected (NotDetected); Methadone Screen, Urine Not Detected (NotDetected); Opiate Screen,Urine Not Detected (NotDetected); Oxycodone Screen, Urine Not Detected (NotDetected); Phencyclidine Screen,Urine Not Detected (NotDetected); Tricyclic Antidepressant,Urine Not Detected (NotDetected); Urn Cannabinoid Scrn Detected (NotDetected)
[2018-11-06 06:10] VITALS: BP 156/100; PULSE 98; RESP 19; TEMP 98.2
== END 2018-11-06 06:10 | disposition home or self-care (01) ==
LOC: EC 23:08
DX: F10.129 Alcohol abuse with intoxication, unspecified (principal); I25.10 Atherosclerotic heart disease of native coronary artery without angina pectoris; E78.5 Hyperlipidemia, unspecified; I10 Essential (primary) hypertension; I25.2 Old myocardial infarction; M10.9 Gout, unspecified; F17.200 Nicotine dependence, unspecified, uncomplicated; Z95.5 Presence of coronary angioplasty implant and graft; Z79.899 Other long term (current) drug therapy
CPT/HCPCS: 80306; 82075; 99285

== ENCOUNTER → 2023-03-07 | Outpatient (CLI) | payer OTHER ==
--- NOTE | 2023-03-07 09:59 | US ---
EXAMINATION TYPE: US arterial LE multi level DATE OF EXAM: 03/07/2023 9:36 AM CLINICAL INDICATION: Male, 63 years old with history of I70.213 ATHSCL [place] ARTERIES; History of: Smoker: Current Smoker Hypertension: Yes Diabetic: No Hyperlipidemia: Yes TIA/CVA: No Previous Vascular Surgery: Heart Stent CAD: No CO: No Vascular Ulcers: Bilateral Claudication: Yes Gangrene: No Doppler Waveforms: Right: Monophasic Left: Monophasic Right Brachial Pressure: 128 Left Brachial Pressure: 137 Ankle-Brachial Indices: Right: 0.75 Left: 0.63 Toe Brachial Indices: Right: 0.37 Left: Sensor could not pick and shovel man for pressure IMPRESSION: 1. Low ratios compatible with severe stenosis lower extremity arterial structures
== END | disposition home or self-care (01) ==
LOC: RADUSWWP 08:54
PROVIDERS: ATTEND Family Medicine
DX: I70.213 Atherosclerosis of native arteries of extremities with intermittent claudication, bilateral legs (principal); I10 Essential (primary) hypertension; E78.5 Hyperlipidemia, unspecified; Z95.5 Presence of coronary angioplasty implant and graft
CPT/HCPCS: 93923

== ENCOUNTER 2023-05-01 18:01 | Observation (INO) | payer OTHER ==
[2023-05-01 19:20] LABS: Anisocytosis Slight; Basophils % (A) 0 %; Eosinophils # (A) 0.1 k/uL (0-0.7); Eosinophils % (A) 1 %; HCT 29.8 % (39.0-53.0); HGB 9.7 gm/dL (13.0-17.5); Hypochromasia Slight; Lymphocytes # (A) 0.9 k/uL (1.0-4.8); Lymphocytes % (A) 6 %; MCH 36.1 pg (25.0-35.0); MCHC 32.7 g/dL (31.0-37.0); Macrocytosis Marked; Mean Platelet Volume 8.5; Monocytes # (A) 0.6 k/uL (0-1.0); Monocytes % (A) 4 %; Neutrophils # (A) 12.2 k/uL (1.3-7.7); Neutrophils % (A) 88 %; Platelet Count 368 k/uL (150-450); RDW 18.8 % (11.5-15.5); WBC 13.9 k/uL (3.8-10.6)
[2023-05-01 19:21] LABS: MCV 110.4 fL (80.0-100.0)
[2023-05-01 19:27] LABS: ALT 13 U/L (4-49); AST 53 U/L (17-59); African American GFR (CKD) >90 (>60 ml/min/1.73 sqM); Albumin 3.8 g/dL (3.5-5.0); Alkaline Phosphatase 226 U/L (38-126); Amylase 58 U/L (30-110); Anion Gap 11 mmol/L; Blood Urea Nitrogen 7 mg/dL (9-20); Calcium 8.7 mg/dL (8.4-10.2); Carbon Dioxide 18 mmol/L (22-30); Chloride 102 mmol/L (98-107); Glucose 104 mg/dL (74-99); Lipase 140 U/L (23-300); Non-African American GFR(CKD) >90 (>60 ml/min/1.73 sqM); Potassium 3.9 mmol/L (3.5-5.1); Sodium 131 mmol/L (137-145); Total Bilirubin 1.3 mg/dL (0.2-1.3); Total Protein 6.6 g/dL (6.3-8.2)
--- NOTE | 2023-05-01 19:35 | ED ---
General Adult HPI - General Chief complaint: Abdominal Pain Stated complaint: abd pain Time Seen by Provider: 05/01/23 18:28 Source: patient, RN notes reviewed Mode of arrival: ambulatory Limitations: no limitations - History of Present Illness Initial comments: 63-year-old male presents to the emergency department for evaluation of abdominal pain with constipation x 1 week. He states that he has been passing very small bowel movements. He states that he is passing flatulence. He admits to vomiting and spitting up water. Patient reports an episode of hematemesis today prompting presentation to the ED. He denies recent fever, chills. Denies chest pain, shortness of breath. - Related Data Allergies Allergy/AdvReac Type Severity Reaction Status Date / Time No Known Allergies Allergy Verified 05/01/23 18:13 Review of Systems ROS Statement: Those systems with pertinent positive or pertinent negative responses have been documented in the HPI. ROS Other: All systems not noted in ROS Statement are negative. Past Medical History Past Medical History: Coronary Artery Disease (CAD), Chest Pain / Angina, GERD/Reflux, Hyperlipidemia, Hypertension, Myocardial Infarction (VT) Additional Past Medical History / Comment(s): AAA. Hx gout. HX FX LT Ankle 05/2017. POSS HERNIA IN ABD. Last Myocardial Infarction Date:: 2010 History of Any Multi-Drug Resistant Organisms: None Reported Past Surgical History: Heart Catheterization With Stent, Orthopedic Surgery Additional Past Surgical History / Comment(s): LT WRIST SX, UNSURE IF ANY METAL PLACED. Lt.ankle surgery, 11 screws. Stent x1. EXPLORATORY LAPAROTOMY 01/19/18, UNABLE TO REPAIR AAA. Past Anesthesia/Blood Transfusion Reactions: Previous Problems w/ Anesthesia Additional Past Anesthesia/Blood Transfusion Reaction / Comment(s): "Takes a lot to put him out." Date of Last Stent Placement:: 2010 Past Psychological History: Anxiety Past Alcohol Use History: Daily Past Drug Use History: Marijuana - Past Family History Father Family Medical History: Cancer Additional Family Medical History / Comment(s): AGE 72 [place] CA W/ METS Mother Family Medical History: Hypertension General Exam Limitations: no limitations General appearance: alert, in no apparent distress Head exam: Present: atraumatic, normocephalic, normal inspection Eye exam: Present: normal appearance, PERRL, EOMI. Absent: scleral icterus, conjunctival injection, periorbital swelling ENT exam: Present: normal exam, mucous membranes moist Neck exam: Present: normal inspection. Absent: tenderness, meningismus, lymphadenopathy Respiratory exam: Present: normal lung sounds bilaterally. Absent: respiratory distress, wheezes, rales, rhonchi, stridor Cardiovascular Exam: Present: irregular rhythm, normal heart sounds GI/Abdominal exam: Present: soft, tenderness, normal bowel sounds. Absent: distended, guarding, rebound, rigid Back exam: Present: normal inspection Neurological exam: Present: alert, oriented X3 Psychiatric exam: Present: normal affect, normal mood Skin exam: Present: warm, dry, intact, normal color. Absent: rash Course Vital Signs 05/01/23 05/01/23 18:10 22:15 Temperature 97.9 F Pulse Rate 94 80 Respiratory 20 18 Rate Blood Pressure 131/64 129/78 O2 Sat by Pulse 98 99 Oximetry Medical Decision Making - Medical Decision Making Was pt. sent in by a medical professional or institution (, PA, ITALIAN TEACHER, urgent care, hospital, or prison...) When possible be specific @ -No Did you speak to anyone other than the patient for history (EMS, parent, family, police, friend...)? What history was obtained from this source @ -No Did you review nursing and triage notes (agree or disagree)? Why? @ -I reviewed and agree with nursing and triage notes Were old charts reviewed (outside hosp., previous admission, EMS record, old EKG, old radiological studies, urgent care reports/EKG's, prison records)? Report findings @ -No old charts were reviewed Differential Diagnosis (chest pain, altered mental status, abdominal pain women, abdominal pain men, vaginal bleeding, weakness, fever, dyspnea, syncope, headache, dizziness, GI bleed, back pain, seizure, CVA, palpatations, mental health, musculoskeletal)? @ -Differential Abdominal Pain Men: Appendicitis, cholecystitis, diverticulosis, ischemic bowel, pancreatitis, hepatitis, UTI, gastroenteritis, AAA, incarcerated hernia, bowel obstruction, constipation, inflammatory bowel, hepatitis, peptic ulcer disease, splenic infarction, perforated viscus, testicular torsion, this is not meant to be an all-inclusive list EKG interpreted by me (3pts min.). @ -EKG at 1837 shows irregular rhythm possibly multifocal with a rate of 93, QRS 100, QTQTc [id number] X-rays interpreted by me (1pt min.). @ -None done CT interpreted by me (1pt min.). @ -CT abdomen pelvis shows no acute intra-abdominal process, stable aortic aneurysm with graft in place U/S interpreted by me (1pt. min.). @ -None done What testing was considered but not performed or refused? (CT, X-rays, U/S, labs)? Why? @ -None What meds were considered but not given or refused? Why? @ -None Did you discuss the management of the patient with other professionals (professionals i.e. DrMarlin, PA, ITALIAN TEACHER, lab, RT, psych nurse, social problems specialist, proposal consultant, teacher, safety instruction police officer, therapeutic case manager)? Give summary @ -Management discussed with Jessica Marshall with [facility] who was accepting of the admission Was smoking cessation discussed for >3mins.? @ -No Was critical care preformed (if so, how long)? @ -No Were there social determinants of health that impacted care today? How? (Homelessness, low income, unemployed, alcoholism, drug addiction, transportation, low edu. Level, literacy, decrease access to med. care, residential, rehab)? @ -No Was there de-escalation of care discussed even if they declined (Discuss DNR or withdrawal of care, Hospice)? DNR status @ -No What co-morbidities impacted this encounter? (DM, HTN, Smoking, COPD, CAD, Cancer, CVA, ARF, Chemo, Hep., AIDS, mental health diagnosis, sleep apnea, morbid obesity)? @ -None Was patient admitted / discharged? Hospital course, mention meds given and route, prescriptions, significant lab abnormalities, going to OR and other pertinent info. @ -Admitted. Patient presented to the emergency department for constipation. He admits to an episode of hematemesis today. Laboratory studies obtained which show a decrease in his hemoglobin from 12.1-9.7. CBC significant for leukocytosis of 13.9. Lactic acid 3.0. UA negative for any signs of infection, Hemoccult negative. CT abdomen pelvis obtained which shows no acute intra- abdominal process with a stable aortic aneurysm with a graft in place. EKG was obtained which showed an irregular rhythm. He has no history of irregular heart rhythm. Case was discussed with [facility], Jessica Marshall who is covering for Dr. Thomas. Patient will be admitted with cardiology and GI consults. Patient understanding agreeable with plan. Patient stable at time of admission. Case discussed with Dr. Puente my attending. Undiagnosed new problem with uncertain prognosis? @ -No Drug Therapy requiring intensive monitoring for toxicity (Heparin, Nitro, Insulin, Cardizem)? @ -No Were any procedures done? @ -No Diagnosis/symptom? @ -Constipation, hematemesis, irregular heart rhythm Acute, or Chronic, or Acute on Chronic? @ -Acute Uncomplicated (without systemic symptoms) or Complicated (systemic symptoms)? @ -Uncomplicated Side effects of treatment? @ -No Exacerbation, Progression, or Severe Exacerbation? @ -No Poses a threat to life or bodily function? How? (Chest pain, USA, VT, pneumonia, PE, COPD, DKA, ARF, appy, cholecystitis, CVA, Diverticulitis, Homicidal, Suicidal, threat to staff... and all critical care pts) @ -No - Lab Data Result diagrams: 05/01/23 19:05 05/01/23 19:05 Lab Results 05/01/23 05/01/23 05/01/23 Range/Units 19:05 19:05 19:05 WBC 13.9 H (3.8-10.6) k/uL RBC 2.70 L (4.30-5.90) m/uL Hgb 9.7 L (13.0-17.5) gm/dL Hct 29.8 L (39.0-53.0) % MCV 110.4 H (80.0-100.0) fL MCH 36.1 H (25.0-35.0) pg MCHC 32.7 (31.0-37.0) g/dL RDW 18.8 H (11.5-15.5) % Plt Count 368 (150-450) k/uL MPV 8.5 Neutrophils % 88 % Lymphocytes % 6 % Monocytes % 4 % Eosinophils % 1 % Basophils % 0 % Neutrophils # 12.2 H (1.3-7.7) k/uL Lymphocytes # 0.9 L (1.0-4.8) k/uL Monocytes # 0.6 (0-1.0) k/uL Eosinophils # 0.1 (0-0.7) k/uL Basophils # 0.0 (0-0.2) k/uL Manual Slide Review Performed Toxic Granulation Present Large Platelets Present Polychromasia Present Hypochromasia Slight Anisocytosis Slight Macrocytosis Marked A Sodium 131 L (137-145) mmol/L Potassium 3.9 (3.5-5.1) mmol/L Chloride 102 (98-107) mmol/L Carbon Dioxide 18 L (22-30) mmol/L Anion Gap 11 mmol/L BUN 7 L (9-20) mg/dL Creatinine 0.61 L (0.66-1.25) mg/dL Est GFR (CKD-EPI)AfAm >90 (>60 ml/min/1.73 sqM) Est GFR (CKD-EPI)NonAf >90 (>60 ml/min/1.73 sqM) Glucose 104 H (74-99) mg/dL Lactic Ac Sepsis Rflx Plasma Lactic Acid Ricco 3.0 H* (0.7-2.0) mmol/L Calcium 8.7 (8.4-10.2) mg/dL Total Bilirubin 1.3 (0.2-1.3) mg/dL AST 53 (17-59) U/L ALT 13 (4-49) U/L Alkaline Phosphatase 226 H (38-126) U/L Total Protein 6.6 (6.3-8.2) g/dL Albumin 3.8 (3.5-5.0) g/dL Amylase 58 (30-110) U/L Lipase 140 (23-300) U/L Urine Color Urine Appearance (Clear) Urine pH (5.0-8.0) Ur Specific [place] (1.001-1.035) Urine Protein (Negative) Urine Glucose (UA) (Negative) Urine Ketones (Negative) Urine Blood (Negative) Urine Nitrite (Negative) Urine Bilirubin (Negative) Urine Urobilinogen (<2.0) mg/dL Ur Leukocyte Esterase (Negative) Stool Occult Blood (Negative) 05/01/23 05/01/23 05/01/23 Range/Units 19:49 19:56 21:20 WBC (3.8-10.6) k/uL RBC (4.30-5.90) m/uL Hgb (13.0-17.5) gm/dL Hct (39.0-53.0) % MCV (80.0-100.0) fL MCH (25.0-35.0) pg MCHC (31.0-37.0) g/dL RDW (11.5-15.5) % Plt Count (150-450) k/uL MPV Neutrophils % % Lymphocytes % % Monocytes % % Eosinophils % % Basophils % % Neutrophils # (1.3-7.7) k/uL Lymphocytes # (1.0-4.8) k/uL Monocytes # (0-1.0) k/uL Eosinophils # (0-0.7) k/uL Basophils # (0-0.2) k/uL Manual Slide Review Toxic Granulation Large Platelets Polychromasia Hypochromasia Anisocytosis Macrocytosis Sodium (137-145) mmol/L Potassium (3.5-5.1) mmol/L Chloride (98-107) mmol/L Carbon Dioxide (22-30) mmol/L Anion Gap mmol/L BUN (9-20) mg/dL Creatinine (0.66-1.25) mg/dL Est GFR (CKD-EPI)AfAm (>60 ml/min/1.73 sqM) Est GFR (CKD-EPI)NonAf (>60 ml/min/1.73 sqM) Glucose (74-99) mg/dL Lactic Ac Sepsis Rflx Y Plasma Lactic Acid Ricco (0.7-2.0) mmol/L Calcium (8.4-10.2) mg/dL Total Bilirubin (0.2-1.3) mg/dL AST (17-59) U/L ALT (4-49) U/L Alkaline Phosphatase (38-126) U/L Total Protein (6.3-8.2) g/dL Albumin (3.5-5.0) g/dL Amylase (30-110) U/L Lipase (23-300) U/L Urine Color Colorless Urine Appearance Clear (Clear) Urine pH 6.5 (5.0-8.0) Ur Specific [place] 1.012 (1.001-1.035) Urine Protein Negative (Negative) Urine Glucose (UA) Negative (Negative) Urine Ketones Negative (Negative) Urine Blood Negative (Negative) Urine Nitrite Negative (Negative) Urine Bilirubin Negative (Negative) Urine Urobilinogen <2.0 (<2.0) mg/dL Ur Leukocyte Esterase Negative (Negative) Stool Occult Blood Negative (Negative) 05/01/23 Range/Units 23:06 WBC (3.8-10.6) k/uL RBC (4.30-5.90) m/uL Hgb (13.0-17.5) gm/dL Hct (39.0-53.0) % MCV (80.0-100.0) fL MCH (25.0-35.0) pg MCHC (31.0-37.0) g/dL RDW (11.5-15.5) % Plt Count (150-450) k/uL MPV Neutrophils % % Lymphocytes % % Monocytes % % Eosinophils % % Basophils % % Neutrophils # (1.3-7.7) k/uL Lymphocytes # (1.0-4.8) k/uL Monocytes # (0-1.0) k/uL Eosinophils # (0-0.7) k/uL Basophils # (0-0.2) k/uL Manual Slide Review Toxic Granulation Large Platelets Polychromasia Hypochromasia Anisocytosis Macrocytosis Sodium (137-145) mmol/L Potassium (3.5-5.1) mmol/L Chloride (98-107) mmol/L Carbon Dioxide (22-30) mmol/L Anion Gap mmol/L BUN (9-20) mg/dL Creatinine (0.66-1.25) mg/dL Est GFR (CKD-EPI)AfAm (>60 ml/min/1.73 sqM) Est GFR (CKD-EPI)NonAf (>60 ml/min/1.73 sqM) Glucose (74-99) mg/dL Lactic Ac Sepsis Rflx Plasma Lactic Acid Ricco 2.3 H* (0.7-2.0) mmol/L Calcium (8.4-10.2) mg/dL Total Bilirubin (0.2-1.3) mg/dL AST (17-59) U/L ALT (4-49) U/L Alkaline Phosphatase (38-126) U/L Total Protein (6.3-8.2) g/dL Albumin (3.5-5.0) g/dL Amylase (30-110) U/L Lipase (23-300) U/L Urine Color Urine Appearance (Clear) Urine pH (5.0-8.0) Ur Specific [place] (1.001-1.035) Urine Protein (Negative) Urine Glucose (UA) (Negative) Urine Ketones (Negative) Urine Blood (Negative) Urine Nitrite (Negative) Urine Bilirubin (Negative) Urine Urobilinogen (<2.0) mg/dL Ur Leukocyte Esterase (Negative) Stool Occult Blood (Negative) Disposition Clinical Impression: Abdominal pain, Irregular heart rhythm Disposition: ADMITTED IP TO THIS HOSP Condition: Stable Is patient prescribed a controlled substance at d/c from ED?: No
[2023-05-01 19:42] LABS: Large Platelets Present; Polychromasia Present
[2023-05-01 19:43] LABS: Toxic Granulation Present
--- NOTE | 2023-05-01 19:43 | CT ---
EXAMINATION TYPE: CT abdomen pelvis w con DATE OF EXAM: 05/01/2023 COMPARISON: CT chest abdomen and pelvis dated 05/13/2017. HISTORY: Constipation x1wk. CT DLP: 1285.8 mGycm Automated exposure control for dose reduction was used. TECHNIQUE: Helical acquisition of images was performed from the lung bases through the pelvis. CONTRAST: Performed without Oral Contrast and with IV Contrast, patient injected with 100 ml mL of Isovue 300. FINDINGS: The lung bases are clear. The gallbladder is normal without gallstones or distention. There are no gallstones. There is no biliary ductal dilatation. There is no focal mass or organomegaly involving the liver, pancreas, spleen and adrenal glands with the exception of a stable small splenic cyst. No solid renal mass or hydronephrosis. There is an aortic stent graft. The mechoopda aneurysm is stable in size measuring approximately 5.2 x 6 .0 cm. There is no evidence of aneurysm leak. There is no retroperitoneal adenopathy. The bowel loops are normal in caliber and there is no evidence of obstruction. No inflammatory change s are identified in the mesentery. There is no free intraperitoneal air or fluid. There is no pelvic mass or adenopathy. The osseous structures are intact. IMPRESSION: 1. Aortic stent graft with stable mechoopda abdominal aortic aneurysm. 2. No acute changes within the abdomen or pelvis.
[2023-05-01 20:12] LABS: Appearance,Urine Clear (Clear); Bilirubin,Urine Negative (Negative); Blood,Urine Negative (Negative); Color,Urine Colorless; Glucose,Urine (UA) Negative (Negative); Ketones,Urine Negative (Negative); Leukocyte Esterase,Urine Negative (Negative); Nitrite,Urine Negative (Negative); PH, Urine 6.5 (5.0-8.0); Protein,Urine Negative (Negative); Specific Gravity,Urine 1.012 (1.001-1.035); Urobilinogen,Urine <2.0 mg/dL (<2.0)
[2023-05-01] MEDS: SODIUM CHLORIDE 0.9% 1,000 ML IV ONE (21:16)
[2023-05-01] MEDS ORDERED: ACETAMINOPHEN TAB 325 MG TAB PO PRN (23:09)
[2023-05-01] MEDS ORDERED: NALOXONE 0.4 MG/ML 1 ML VIAL IV PRN (23:09)
[2023-05-01] MEDS ORDERED: MORPHINE SULFATE 4 MG/ML SYRINGE IV PRN (23:09)
[2023-05-02 08:27] LABS: ALT 11 U/L (4-49); AST 43 U/L (17-59); African American GFR (CKD) >90 (>60 ml/min/1.73 sqM); Albumin 3.2 g/dL (3.5-5.0); Albumin/Globulin Ratio 1.2; Alkaline Phosphatase 205 U/L (38-126); Anion Gap 8 mmol/L; Blood Urea Nitrogen 6 mg/dL (9-20); Calcium 8.3 mg/dL (8.4-10.2); Carbon Dioxide 20 mmol/L (22-30); Chloride 106 mmol/L (98-107); Globulin 2.6 g/dL; Glucose 87 mg/dL (74-99); Non-African American GFR(CKD) >90 (>60 ml/min/1.73 sqM); Sodium 134 mmol/L (137-145); Total Bilirubin 1.2 mg/dL (0.2-1.3); Total Protein 5.8 g/dL (6.3-8.2)
[2023-05-02] MEDS: PANTOPRAZOLE 40 MG/10 ML VIAL IVP SCH (08:44)
[2023-05-02 08:48] LABS: Anisocytosis Slight; HGB 8.9 gm/dL (13.0-17.5); Hypochromasia Moderate; MCHC 31.8 g/dL (31.0-37.0); MCV 113.1 fL (80.0-100.0); Macrocytosis Marked; Mean Platelet Volume 8.4; Platelet Count 340 k/uL (150-450); RBC 2.47 m/uL (4.30-5.90); RDW 19.1 % (11.5-15.5); WBC 11.4 k/uL (3.8-10.6)
[2023-05-02] MEDS ORDERED: NALOXONE 0.4 MG/ML 1 ML VIAL IV PRN (09:20)
[2023-05-02] MEDS ORDERED: MAG HYDROX/AL HYDROX/SIMETH 30 ML CUP PO PRN (09:20)
[2023-05-02] MEDS ORDERED: MELATONIN 3 MG TABLET PO PRN (09:20)
[2023-05-02] MEDS ORDERED: ONDANSETRON 4 MG/2 ML VIAL IVP PRN (09:20)
[2023-05-02] MEDS: SODIUM CHLORIDE 0.9% 1,000 ML IV SCH (09:51)
[2023-05-02] MEDS: METOPROLOL SUCCINATE (ER) 25 MG TAB.ER.24H PO SCH (09:54)
[2023-05-02] MEDS: FUROSEMIDE 40 MG TAB PO SCH (09:54)
--- NOTE | 2023-05-02 11:16 | P.CRDCN ---
History of Present Illness History of present illness: HISTORY OF PRESENT ILLNESS: This is a 63-year-old male with a past medical history significant for CAD, hypertension, hyperlipidemia, AAA, anxiety, nicotine dependence, and alcohol abuse. Patient follows in the office with Dr. Randall. We have been asked to see the patient in consultation for irregular rhythm. Patient examined at the bedside. Patient states he presented to the hospital with a chief complaint of abdominal discomfort and constipation. He also reports swelling in his lower extremities. He states he had 1 episode of hematemesis at home. Hemoglobin this morning is 8.9. It is noted the patient's hemoglobin was 12.1 in February 2023. The patient denies any chest pain or pressure. He denies any shortness of breath. Patient states he was previously on blood pressure medications but stopped taking them a few weeks ago because he checked his blood pressure at [facility] and he states his blood pressure was within normal limits. He does report that he has been taking an aspirin daily. The patient reports continued daily alcohol use. He is a current cigarette smoker. Initial EKG performed was interpreted by computer as atrial fibrillation. However, upon personal review this is sinus mechanism with PACs. DIAGNOSTICS: - EKG reveals sinus mechanism with PACs. - CT abdomen pelvis: Aortic stent graft with stable flandreau abdominal aortic aneurysm. No acute changes within the abdomen or pelvis. - Laboratory data: WBC 13.9. Hemoglobin 9.7. Platelet count 368. Sodium 131. Potassium 3.9. BUN 7. Creatinine 0.61. Lactic acid 2.3. - Current home cardiac medications include none. - Most recent echocardiogram obtained in 2014 revealing ejection fraction 60 to 65%, trace to mild AR, trace to mild MR, mild TR REVIEW OF SYSTEMS: At the time of my exam: CONSTITUTIONAL: Denies fever or chills. HEENT: Denies blurred vision, vision changes, or eye pain. Denies hemoptysis CARDIOVASCULAR: Denies chest pain. Denies orthopnea. Denies PND. Denies palpitations RESPIRATORY: Denies shortness of breath. GASTROINTESTINAL: Denies abdominal pain. Denies nausea or vomiting. HEMATOLOGIC: Denies bleeding disorders. GENITOURINARY: Denies any blood in urine. SKIN: Denies pruitis. Denies rash. PHYSICAL EXAM: VITAL SIGNS: Reviewed. GENERAL: Well-developed in no acute distress. HEENT: Head is normocephalic. Pupils are equal, round. Sclerae anicteric. Mucous membranes of the mouth are moist. Neck supple. No JVD or thyromegaly LUNGS: Respirations even and unlabored. Lungs essentially clear to auscultation bilaterally. HEART: Regular rate and rhythm. S1 and S2 heard. ABDOMEN: Soft. Nondistended. Nontender. EXTREMITIES: Normal range of motion. No clubbing or cyanosis. Peripheral pulses intact. 1-2+ bilateral lower extremity edema NEUROLOGIC: Awake and alert. Oriented x 3. ASSESSMENT: Abdominal pain Constipation Hematemesis Anemia Atrial fibrillation, ruled out, EKG reveals sinus mechanism with PACs Leukocytosis CAD with history of stenting of the circumflex in 2010 History of endovascular aortic repair with AFX 2 device, 04/2018 Hypertension Hyperlipidemia Anxiety Nicotine dependence Daily alcohol use Medication noncompliance PLAN: Atrial fibrillation ruled out. EKG reveals sinus mechanism with PACs. Bedside telemetry reveals sinus mechanism. Continue telemetry monitoring Add small dose of oral Lasix secondary to lower extremity swelling Add atorvastatin and metoprolol succinate Add aspirin 81 mg daily when hemoglobin is stable GI has been consulted for further evaluation. Await recommendations Further recommendations pending patient course Nurse practitioner note has been reviewed by physician. Signing provider agrees with the documented findings, assessment, and plan of care documented by [employer] as a scribe. Past Medical History Past Medical History: Coronary Artery Disease (CAD), Chest Pain / Angina, GERD/Reflux, Hyperlipidemia, Hypertension, Myocardial Infarction ([place]) Additional Past Medical History / Comment(s): AAA. Hx gout. HX FX LT Ankle 05/2017. POSS HERNIA IN ABD. Last Myocardial Infarction Date:: 2010 History of Any Multi-Drug Resistant Organisms: None Reported Past Surgical History: Heart Catheterization With Stent, Orthopedic Surgery Additional Past Surgical History / Comment(s): LT WRIST SX, UNSURE IF ANY METAL PLACED. Lt.ankle surgery, 11 screws. Stent x1. EXPLORATORY LAPAROTOMY 01/19/18, UNABLE TO REPAIR AAA. Past Anesthesia/Blood Transfusion Reactions: Previous Problems w/ Anesthesia Additional Past Anesthesia/Blood Transfusion Reaction / Comment(s): "Takes a lot to put him out." Date of Last Stent Placement:: 2010 Past Psychological History: Anxiety Past Alcohol Use History: Daily Past Drug Use History: Marijuana - Past Family History Father Family Medical History: Cancer Additional Family Medical History / Comment(s): AGE 72 [place] CA W/ METS Mother Family Medical History: Hypertension Medications and Allergies Home Medications Medication Instructions Recorded Confirmed Type Bp Medication (Unknown) 1 tab PO DAILY PRN 05/02/23 05/02/23 History Allergies Allergy/AdvReac Type Severity Reaction Status Date / Time No Known Allergies Allergy Verified 05/01/23 18:13 Physical Exam Vitals: Vital Signs Temp Pulse Resp BP Pulse Ox 05/02/23 07:27 97.3 F L 73 16 117/92 05/02/23 06:44 66 16 121/66 05/02/23 03:49 71 16 122/71 98 05/02/23 00:29 76 16 127/68 96 05/01/23 22:15 80 18 129/78 99 05/01/23 18:10 97.9 F 94 20 131/64 98 Intake and Output 05/01/23 05/02/23 05/02/23 22:59 06:59 14:59 Other: Weight 95.254 kg Results 05/02/23 06:28 05/02/23 06:28 Cardiac Enzymes 05/01/23 Range/Units 19:05 AST 53 (17-59) U/L CBC 05/01/23 Range/Units 19:05 WBC 13.9 H (3.8-10.6) k/uL RBC 2.70 L (4.30-5.90) m/uL Hgb 9.7 L (13.0-17.5) gm/dL Hct 29.8 L (39.0-53.0) % Plt Count 368 (150-450) k/uL Comprehensive Metabolic Panel 05/01/23 Range/Units 19:05 Sodium 131 L (137-145) mmol/L Potassium 3.9 (3.5-5.1) mmol/L Chloride 102 (98-107) mmol/L Carbon Dioxide 18 L (22-30) mmol/L BUN 7 L (9-20) mg/dL Creatinine 0.61 L (0.66-1.25) mg/dL Glucose 104 H (74-99) mg/dL Calcium 8.7 (8.4-10.2) mg/dL AST 53 (17-59) U/L ALT 13 (4-49) U/L Alkaline Phosphatase 226 H (38-126) U/L Total Protein 6.6 (6.3-8.2) g/dL Albumin 3.8 (3.5-5.0) g/dL Current Medications Generic Name Dose Route Start Last Admin Trade Name Freq PRN Reason Stop Dose Admin Acetaminophen 650 mg 05/01/23 23:09 Acetaminophen Tab 325 Mg Tab PO Q6HR PRN Mild Pain or Fever > 100.5 Morphine Sulfate 4 mg 05/01/23 23:09 Morphine Sulfate 4 Mg/Ml Syringe IV Q4HR PRN Severe Pain (Scale 7 to 10) Naloxone HCl 0.2 mg 05/01/23 23:09 Naloxone 0.4 Mg/Ml 1 Ml Vial IV Q2M PRN Opioid Reversal Intake and Output 05/01/23 05/02/23 05/02/23 22:59 06:59 14:59 Other: Weight 95.254 kg 05/01/23 19:05 05/01/23 19:05
--- NOTE | 2023-05-02 12:27 | P.HPIM ---
History of Present Illness H&P Date: 05/02/23 History of present illness; patient 63-year-old gentleman with no significant past medical history brought to the ER for abdominal pain and altered bowel movement for the last 1 week. Patient stated that for the last 1 week is noticing that he has been getting constipated, frequency of bowel movements have been decreasing and he has been passing small amounts of stools. Patient also started noticing abdominal pain that was generalized, crampy in nature, no aggravating or relieving factor associated abdominal pain. Denies any fever or chills. Patient was complaining of nausea and vomiting. Does complain loss of appetite. Patient had an episode of hematemesis yesterday which made him very concerned and made him come to the ER. Initial lab work done in the ER showed WBC 13.9, hemoglobin 8.7, platelet count 368 sodium 139, potassium 3.9, BUN 7, creatinine 0.61 lactic 3 UA negative for infection FOBT negative CT dominant pelvis done showed aortic stent graft with stable [place] band abdominal aortic aneurysm. No acute changes abdominal pelvis EKG done in the ER showed heart rate of 93, irregular rate and rhythm, no ST segment elevation or depression seen, no T-wave inversions seen. Patient admitted to internal medicine service REVIEW OF SYSTEMS: CONSTITUTIONAL: No fever, no malaise, no fatigue. HEENT: No recent visual problems or hearing problems. Denied any sore throat. CARDIOVASCULAR: No chest pain, orthopnea, PND, no palpitations, no syncope. PULMONARY: No shortness of breath, no cough, no hemoptysis. GASTROINTESTINAL: As mentioned HPI NEUROLOGICAL: No headaches, no weakness, no numbness. HEMATOLOGICAL: Denies any bleeding or petechiae. GENITOURINARY: Denies any burning micturition, frequency, or urgency. MUSCULOSKELETAL/RHEUMATOLOGICAL: Denies any joint pain, swelling, or any muscle pain. ENDOCRINE: Denies any polyuria or polydipsia. The rest of the 14-point review of systems is negative. PHYSICAL EXAMINATION: GENERAL: The patient is alert and oriented x3, not in any acute distress. Well developed, well nourished. HEENT: Pupils are round and equally reacting to light. EOMI. No scleral icterus. No conjunctival pallor. Normocephalic, atraumatic. No pharyngeal erythema. No thyromegaly. CARDIOVASCULAR: S1 and S2 present. No murmurs, rubs, or gallops. PULMONARY: Chest is clear to auscultation, no wheezing or crackles. ABDOMEN: Soft, nontender, nondistended, normoactive bowel sounds. No palpable organomegaly. MUSCULOSKELETAL: No joint swelling or deformity. EXTREMITIES: No cyanosis, clubbing, or pedal edema. NEUROLOGICAL: Gross neurological examination did not reveal any focal deficits. SKIN: No rashes. Assessment and plan Abdominal pain Constipation Hematemesis Lactic acidosis Hyponatremia CAD with history of stenting of the circumflex in 2010 History of endovascular aortic repair with AFX 2 device, 04/2018 Hypertension Hyperlipidemia Anxiety Nicotine dependence Daily alcohol use Medication noncompliance Monitor vital signs Monitor CBC Monitor CMP Continue telemetry monitoring Continue IV fluids Continue antiemetics Continue IV Protonix Consult cardiology Consult GI Labs and medication were reviewed.. Continue same treatment. Continue with symptomatic treatment. Resume home medication. Monitor labs and vitals. DVT and GI prophylaxis. Further recommendations as per clinical course of the patient Dictation was produced using [employer] dictation software. please excuse any grammatical, word or spelling errors. Past Medical History Past Medical History: Coronary Artery Disease (CAD), Chest Pain / Angina, GERD/Reflux, Hyperlipidemia, Hypertension, Myocardial Infarction ([place]) Additional Past Medical History / Comment(s): AAA. Hx gout. HX FX LT Ankle 05/2017. POSS HERNIA IN ABD. Last Myocardial Infarction Date:: 2010 History of Any Multi-Drug Resistant Organisms: None Reported Past Surgical History: Heart Catheterization With Stent, Orthopedic Surgery Additional Past Surgical History / Comment(s): LT WRIST SX, UNSURE IF ANY METAL PLACED. Lt.ankle surgery, 11 screws. Stent x1. EXPLORATORY LAPAROTOMY 01/19/18, UNABLE TO REPAIR AAA. Past Anesthesia/Blood Transfusion Reactions: Previous Problems w/ Anesthesia Additional Past Anesthesia/Blood Transfusion Reaction / Comment(s): "Takes a lot to put him out." Date of Last Stent Placement:: 2010 Past Psychological History: Anxiety Past Alcohol Use History: Daily Past Drug Use History: Marijuana - Past Family History Father Family Medical History: Cancer Additional Family Medical History / Comment(s): AGE 72 [place] CA W/ METS Mother Family Medical History: Hypertension Medications and Allergies Home Medications Medication Instructions Recorded Confirmed Type Bp Medication (Unknown) 1 tab PO DAILY PRN 05/02/23 05/02/23 History Allergies Allergy/AdvReac Type Severity Reaction Status Date / Time No Known Allergies Allergy Verified 05/01/23 18:13 Physical Exam Vitals: Vital Signs Temp Pulse Resp BP Pulse Ox 05/02/23 07:27 97.3 F L 73 16 117/92 05/02/23 06:44 66 16 121/66 05/02/23 03:49 71 16 122/71 98 05/02/23 00:29 76 16 127/68 96 05/01/23 22:15 80 18 129/78 99 05/01/23 18:10 97.9 F 94 20 131/64 98 Intake and Output 05/01/23 05/02/23 05/02/23 22:59 06:59 14:59 Other: Weight 95.254 kg Results CBC & Chem 7: 05/02/23 06:28 05/02/23 06:28 Labs: Abnormal Lab Results - Last 24 Hours (Table) 05/01/23 05/01/23 05/01/23 Range/Units 19:05 19:05 19:05 WBC 13.9 H (3.8-10.6) k/uL RBC 2.70 L (4.30-5.90) m/uL Hgb 9.7 L (13.0-17.5) gm/dL Hct 29.8 L (39.0-53.0) % MCV 110.4 H (80.0-100.0) fL MCH 36.1 H (25.0-35.0) pg RDW 18.8 H (11.5-15.5) % Neutrophils # 12.2 H (1.3-7.7) k/uL Lymphocytes # 0.9 L (1.0-4.8) k/uL Macrocytosis Marked A Sodium 131 L (137-145) mmol/L Carbon Dioxide 18 L (22-30) mmol/L BUN 7 L (9-20) mg/dL Creatinine 0.61 L (0.66-1.25) mg/dL Glucose 104 H (74-99) mg/dL Plasma Lactic Acid Ricco 3.0 H* (0.7-2.0) mmol/L Calcium (8.4-10.2) mg/dL Alkaline Phosphatase 226 H (38-126) U/L Total Protein (6.3-8.2) g/dL Albumin (3.5-5.0) g/dL 05/01/23 05/02/23 05/02/23 Range/Units 23:06 03:06 06:28 WBC (3.8-10.6) k/uL RBC (4.30-5.90) m/uL Hgb (13.0-17.5) gm/dL Hct (39.0-53.0) % MCV (80.0-100.0) fL MCH (25.0-35.0) pg RDW (11.5-15.5) % Neutrophils # (1.3-7.7) k/uL Lymphocytes # (1.0-4.8) k/uL Macrocytosis Sodium (137-145) mmol/L Carbon Dioxide (22-30) mmol/L BUN (9-20) mg/dL Creatinine (0.66-1.25) mg/dL Glucose (74-99) mg/dL Plasma Lactic Acid Ricco 2.3 H* 2.4 H* 2.3 H* (0.7-2.0) mmol/L Calcium (8.4-10.2) mg/dL Alkaline Phosphatase (38-126) U/L Total Protein (6.3-8.2) g/dL Albumin (3.5-5.0) g/dL 05/02/23 05/02/23 Range/Units 06:28 06:28 WBC 11.4 H (3.8-10.6) k/uL RBC 2.47 L (4.30-5.90) m/uL Hgb 8.9 L (13.0-17.5) gm/dL Hct 28.0 L (39.0-53.0) % MCV 113.1 H (80.0-100.0) fL MCH 36.0 H (25.0-35.0) pg RDW 19.1 H (11.5-15.5) % Neutrophils # (1.3-7.7) k/uL Lymphocytes # (1.0-4.8) k/uL Macrocytosis Marked A Sodium 134 L (137-145) mmol/L Carbon Dioxide 20 L (22-30) mmol/L BUN 6 L (9-20) mg/dL Creatinine 0.58 L (0.66-1.25) mg/dL Glucose (74-99) mg/dL Plasma Lactic Acid Ricco (0.7-2.0) mmol/L Calcium 8.3 L (8.4-10.2) mg/dL Alkaline Phosphatase 205 H (38-126) U/L Total Protein 5.8 L (6.3-8.2) g/dL Albumin 3.2 L (3.5-5.0) g/dL
[2023-05-02] MEDS: polyethylene glycoL 3350 17 GM POWD.PACK PO SCH (13:36)
--- NOTE | 2023-05-02 16:53 | P.CONS ---
History of Present Illness - Reason for Consult Consult date: 05/02/23 Abdominal pain, hematemesis Requesting physician: Meryl Lara - Chief Complaint Abdominal pain with constipation - History of Present Illness This is a pleasant 63-year-old male who states yesterday he was having abdominal pain, some nausea and feeling very full and uncomfortable. He has a history of coronary artery disease, abdominal aortic aneurysm with previous stent, states he is not on any anticoagulation. States he has not had a good bowel movement for at least a week. States that he is having very small bowel movements that are hard. States that he had a little bit of nausea but no vomiting. States that he did cough up a little bit of blood which she said was about quarter size but nothing further. Denies any vomiting of blood. Denies any blood in his stool or black stool. No shortness of breath or chest pain. States that he has a history of constipation, he does not take anything regularly. No previous EGD or colonoscopy in the past. States he had a colonoscopy scheduled last year but he canceled that. He had a CT of the abdomen pelvis with contrast reporting aortic stent graft with stable [place] abdominal aortic aneurysm, no acute c hanges within the abdomen or pelvis. Gastroenterology was consulted for abdominal pain with hematemesis. Review of Systems REVIEW OF SYSTEMS: CARDIOPULMONARY: No chest pain or shortness of breath. Gastrointestinal: Abdominal pain, bloating. No nausea or vomiting. No hematemesis, coffee-ground emesis. No rectal bleeding, or melena. GENITOURINARY: No dysuria or hematuria. MUSCULOSKELETAL: Reports normal range of motion. SKIN: No rashes. No jaundice. ENDOCRINE: No chills, fevers. No excessive weight gain or loss. No polydipsia or polyuria. PSYCHIATRIC: Unremarkable. NEUROLOGY: No change in mental status. Denies dizziness, headache. ENT: Vision unremarkable. CONSTITUTIONAL: No recent weight loss. No fever, chills, night sweats. Past Medical History Past Medical History: Coronary Artery Disease (CAD), Chest Pain / Angina, GERD/Reflux, Hyperlipidemia, Hypertension, Myocardial Infarction ([place]) Additional Past Medical History / Comment(s): AAA. Hx gout. HX FX LT Ankle 05/2017. POSS HERNIA IN ABD. Last Myocardial Infarction Date:: 2010 History of Any Multi-Drug Resistant Organisms: None Reported Past Surgical History: Heart Catheterization With Stent, Orthopedic Surgery Additional Past Surgical History / Comment(s): LT WRIST SX, UNSURE IF ANY METAL PLACED. Lt.ankle surgery, 11 screws. Stent x1. EXPLORATORY LAPAROTOMY 01/19/18, UNABLE TO REPAIR AAA. Past Anesthesia/Blood Transfusion Reactions: Previous Problems w/ Anesthesia Additional Past Anesthesia/Blood Transfusion Reaction / Comm: "Takes a lot to put him out." Date of Last Stent Placement:: 2010 Past Psychological History: Anxiety Past Alcohol Use History: Daily Past Drug Use History: Marijuana - Past Family History Father Family Medical History: Cancer Additional Family Medical History / Comment(s): AGE 72 [place] CA W/ METS Mother Family Medical History: Hypertension Medications and Allergies Home Medications Medication Instructions Recorded Confirmed Type Bp Medication (Unknown) 1 tab PO DAILY PRN 05/02/23 05/02/23 History Allergies Allergy/AdvReac Type Severity Reaction Status Date / Time No Known Allergies Allergy Verified 05/01/23 18:13 Physical Exam Vitals: Vital Signs Temp Pulse Resp BP Pulse Ox 05/02/23 07:27 97.3 F L 73 16 117/92 05/02/23 06:44 66 16 121/66 05/02/23 03:49 71 16 122/71 98 05/02/23 00:29 76 16 127/68 96 05/01/23 22:15 80 18 129/78 99 05/01/23 18:10 97.9 F 94 20 131/64 98 Intake and Output 05/01/23 05/02/23 05/02/23 22:59 06:59 14:59 Other: Weight 95.254 kg General appearance: The patient is alert, oriented, appears in no acute distress. HET: Head is normocephalic and atraumatic. Conjunctiva pink. Sclera anicteric. Neck: Supple without lymphadenopathy. Trachea midline. Heart: Regular. Lungs: Equal expansion, normal respiratory effort. Abdomen: Soft, nontender, nondistended with bowel sounds. No guarding or rigidity. Skin: No rashes. No jaundice. Extremities: Normal skin color and turgor. No pedal edema. Neurological: No focal deficits. Alert and oriented x3. Results CBC & Chem 7: 05/02/23 06:28 05/02/23 06:28 Labs: Abnormal Lab Results - Last 24 Hours (Table) 05/01/23 05/01/23 05/01/23 Range/Units 19:05 19:05 19:05 WBC 13.9 H (3.8-10.6) k/uL RBC 2.70 L (4.30-5.90) m/uL Hgb 9.7 L (13.0-17.5) gm/dL Hct 29.8 L (39.0-53.0) % MCV 110.4 H (80.0-100.0) fL MCH 36.1 H (25.0-35.0) pg RDW 18.8 H (11.5-15.5) % Neutrophils # 12.2 H (1.3-7.7) k/uL Lymphocytes # 0.9 L (1.0-4.8) k/uL Macrocytosis Marked A Sodium 131 L (137-145) mmol/L Carbon Dioxide 18 L (22-30) mmol/L BUN 7 L (9-20) mg/dL Creatinine 0.61 L (0.66-1.25) mg/dL Glucose 104 H (74-99) mg/dL Plasma Lactic Acid Ricco 3.0 H* (0.7-2.0) mmol/L Alkaline Phosphatase 226 H (38-126) U/L 05/01/23 05/02/23 05/02/23 Range/Units 23:06 03:06 06:28 WBC (3.8-10.6) k/uL RBC (4.30-5.90) m/uL Hgb (13.0-17.5) gm/dL Hct (39.0-53.0) % MCV (80.0-100.0) fL MCH (25.0-35.0) pg RDW (11.5-15.5) % Neutrophils # (1.3-7.7) k/uL Lymphocytes # (1.0-4.8) k/uL Macrocytosis Sodium (137-145) mmol/L Carbon Dioxide (22-30) mmol/L BUN (9-20) mg/dL Creatinine (0.66-1.25) mg/dL Glucose (74-99) mg/dL Plasma Lactic Acid Ricco 2.3 H* 2.4 H* 2.3 H* (0.7-2.0) mmol/L Alkaline Phosphatase (38-126) U/L Comments: CT abdomen pelvis with contrast reported aortic stent graft with stable negative abdominal aortic aneurysm. No acute changes within the abdomen or pelvis. Assessment and Plan (1) Abdominal pain Narrative/Plan: 63-year-old male presenting with abdominal pain and constipation for over 1 week duration. States that he has been having bowel movements but they are just very small sydni. He denies any nausea or vomiting, no hematemesis. States that he did have 1 episode where he coughed and there was some blood in it. No previous colonoscopy. Abdominal pain likely related to constipation and bloating. Will treat symptomatically, recommend MiraLAX. No plans for endoscopic evaluation at this time. Would recommend outpatient colonoscopy Current Visit: Yes Status: Acute Code(s): R10.9 - UNSPECIFIED ABDOMINAL PAIN SNOMED Code(s): 65182628 (2) Constipation Current Visit: Yes Status: Acute Code(s): K59.00 - CONSTIPATION, UNSPECIFIED SNOMED Code(s): 93453078 (3) CAD (coronary artery disease) Current Visit: No Status: Acute Priority: Medium Code(s): I25.10 - ATHSCL HEART DISEASE OF [place] CORONARY ARTERY W/O ANG PCTRS SNOMED Code(s): 892317587 Plan: 1. Continue symptomatic and supportive care 2. Diet as tolerated 3. MiraLAX daily 4. Protonix 40 mg daily for GI prophylaxis 5. Recommend daily bowel regimen 6. No plans on endoscopic evaluation 7. Recommend outpatient screening colonoscopy Thank you for this consultation, we will continue to follow. Dr. eDe Randall I agree with the dictator's note, documented as a scribe by Alba Quach.
[2023-05-02 19:04] VITALS: RESP 16
[2023-05-02] MEDS: ATORVASTATIN 40 MG TAB PO SCH (19:54)
--- NOTE | 2023-05-03 09:13 | P.PN ---
Subjective HISTORY OF PRESENT ILLNESS: This is a 63-year-old male with a past medical history significant for CAD, hypertension, hyperlipidemia, AAA, anxiety, nicotine dependence, and alcohol abuse. Patient follows in the office with Dr. Randall. We have been asked to see the patient in consultation for irregular rhythm. Patient examined at the bedside. Patient states he presented to the hospital with a chief complaint of abdominal discomfort and constipation. He also reports swelling in his lower extremities. He states he had 1 episode of hematemesis at home. Hemoglobin this morning is 8.9. It is noted the patient's hemoglobin was 12.1 in February 2023. The patient denies any chest pain or pressure. He denies any shortness of breath. Patient states he was previously on blood pressure medications but stopped taking them a few weeks ago because he checked his blood pressure at home and he states his blood pressure was within normal limits. He does report that he has been taking an aspirin daily. The patient reports continued daily alcohol use. He is a current cigarette smoker. Initial EKG performed was interpreted by computer as atrial fibrillation. However, upon personal review this is sinus mechanism with PACs. DIAGNOSTICS: - EKG reveals sinus mechanism with PACs. - CT abdomen pelvis: Aortic stent graft with stable upper [place] abdominal aortic aneurysm. No acute changes within the abdomen or pelvis. - Laboratory data: WBC 13.9. Hemoglobin 9.7. Platelet count 368. Sodium 131. Potassium 3.9. BUN 7. Creatinine 0.61. Lactic acid 2.3. - Current home cardiac medications include none. - Most recent echocardiogram obtained in 2014 revealing ejection fraction 60 to 65%, trace to mild AR, trace to mild MR, mild TR 05/03/2023 Patient examined this morning at the bedside. Patient denies any chest pain or pressure. He denies shortness of breath. He continues to report constipation this morning. He denies any further episodes of coughing with blood in his sputum. Vital signs are stable. Patient has been evaluated by GI services with no plans for endoscopy at this time PHYSICAL EXAM: VITAL SIGNS: Reviewed. GENERAL: Well-developed in no acute distress. HEENT: Head is normocephalic. Pupils are equal, round. Sclerae anicteric. Mucous membranes of the mouth are moist. Neck supple. No JVD or thyromegaly LUNGS: Respirations even and unlabored. Lungs essentially clear to auscultation bilaterally. HEART: Regular rate and rhythm. S1 and S2 heard. ABDOMEN: Soft. Nondistended. Nontender. EXTREMITIES: Normal range of motion. No clubbing or cyanosis. Peripheral pulses intact. 1+ bilateral lower extremity edema NEUROLOGIC: Awake and alert. Oriented x 3. ASSESSMENT: Abdominal pain Constipation Hemoptysis x 1 episode Anemia Atrial fibrillation, ruled out, EKG reveals sinus mechanism with PACs Leukocytosis CAD with history of stenting of the circumflex in 2010 History of endovascular aortic repair with AFX 2 device, 04/2018 Hypertension Hyperlipidemia Anxiety Nicotine dependence Daily alcohol use Medication noncompliance PLAN: Atrial fibrillation ruled out. EKG reveals sinus mechanism with PACs. Bedside telemetry reveals sinus mechanism. Continue telemetry monitoring Recommend aspirin 81 mg daily if cleared by GI team due to history of CAD Patient may be discharged home today from a cardiac standpoint He has to follow-up postdischarge with Dr. Ranadll Nurse practitioner note has been reviewed by physician. Signing provider agrees with the documented findings, assessment, and plan of care documented by WELLNESS NURSE RN as a scribe. Objective - Vital Signs Vital signs: Vital Signs Temp 98.1 F 05/03/23 07:45 Pulse 66 05/03/23 07:45 Resp 16 05/03/23 07:45 BP 121/70 05/03/23 07:45 Pulse Ox 100 05/03/23 07:45 FiO2 Intake & Output 05/02/23 05/03/23 05/03/23 18:59 06:59 18:59 Intake Total 540 Balance 540 Weight 95.254 kg Intake: Oral 540 Other: # Voids 2 # Bowel Movements 1 - Labs CBC & Chem 7: 05/02/23 06:28 05/02/23 06:28
[2023-05-03 09:21] VITALS: BP 121/70; PULSE 66; TEMP 98.1
[2023-05-03] MEDS: LACTULOSE 20 GM/30 ML CUP PO SCH (11:38)
--- NOTE | 2023-05-03 14:25 | P.PN ---
Subjective Progress Note Date: 05/03/23 Principal diagnosis: Abdominal pain This is a pleasant 63-year-old male who states yesterday he was having abdominal pain, some nausea and feeling very full and uncomfortable. He has a history of coronary artery disease, abdominal aortic aneurysm with previous stent, states he is not on any anticoagulation. States he has not had a good bowel movement for at least a week. States that he is having very small bowel movements that are hard. States that he had a little bit of nausea but no vomiting. States that he did cough up a little bit of blood which she said was about quarter size but nothing further. Denies any vomiting of blood. Denies any blood in his stool or black stool. No shortness of breath or chest pain. States that he has a history of constipation, he does not take anything regularly. No previous EGD or colonoscopy in the past. States he had a colonoscopy scheduled last year but he canceled that. He had a CT of the abdomen pelvis with contrast reporting aortic stent graft with stable three affiliated abdominal aortic aneurysm, no acute changes within the abdomen or pelvis. Gastroenterology was consulted for abdominal pain with hematemesis. 05/03/2023 Patient seen and examined today as a follow-up. He is sitting up and eating breakfast. He denies any further abdominal pain. He is passing lots of flatus. No bowel movement as of yet this morning. No nausea or vomiting. No hematemesis. No further coughing up blood. Objective - Vital Signs Vital signs: Vital Signs Temp 98.3 F 05/03/23 02:00 Pulse 68 05/03/23 02:00 Resp 16 05/03/23 02:00 BP 112/76 05/03/23 02:00 Pulse Ox 99 05/03/23 02:00 FiO2 Intake & Output 05/02/23 05/03/23 05/03/23 18:59 06:59 18:59 Intake Total 540 Balance 540 Weight 95.254 kg Intake: Oral 540 Other: # Voids 2 # Bowel Movements 1 - Exam General appearance: The patient is alert, oriented, appears in no acute distress. HET: Head is normocephalic and atraumatic. Conjunctiva pink. Sclera anicteric. Neck: Supple without lymphadenopathy. Abdomen: Soft, nontender, nondistended with bowel sounds. No guarding or rigidity. Extremities: Normal skin color and turgor. No pedal edema Skin: No rashes, no jaundice Neurological: No focal deficits. Alert and oriented. - Labs CBC & Chem 7: 05/02/23 06:28 05/02/23 06:28 Labs: Abnormal Lab Results - Last 24 Hours (Table) 05/02/23 Range/Units 06:28 WBC 11.4 H (3.8-10.6) k/uL RBC 2.47 L (4.30-5.90) m/uL Hgb 8.9 L (13.0-17.5) gm/dL Hct 28.0 L (39.0-53.0) % MCV 113.1 H (80.0-100.0) fL MCH 36.0 H (25.0-35.0) pg RDW 19.1 H (11.5-15.5) % Macrocytosis Marked A Assessment and Plan (1) Abdominal pain Narrative/Plan: 63-year-old male presenting with abdominal pain and constipation for over 1 week duration. States that he has been having bowel movements but they are just very small sydni. He denies any nausea or vomiting, no hematemesis. States that he did have 1 episode where he coughed and there was some blood in it. No previous colonoscopy. Abdominal pain likely related to constipation and bloati ng. Will treat symptomatically, recommend MiraLAX. No plans for endoscopic evaluation at this time. Would recommend outpatient screening colonoscopy in the near future. Status: Acute Code(s): R10.9 - UNSPECIFIED ABDOMINAL PAIN SNOMED Code(s): 66018008 (2) Constipation Narrative/Plan: Discussed daily bowel regimen, MiraLAX daily to twice a day Status: Acute Code(s): K59.00 - CONSTIPATION, UNSPECIFIED SNOMED Code(s): 46488975 (3) CAD (coronary artery disease) Status: Acute Priority: Medium Code(s): I25.10 - ATHSCL HEART DISEASE OF [place] CORONARY ARTERY W/O ANG PCTRS SNOMED Code(s): 212207024 Plan: 1. Continue symptomatic and supportive care 2. Diet as tolerated 3. MiraLAX daily, may take twice a day as needed 4. Protonix 40 mg daily for GI prophylaxis 5. Recommend daily bowel regimen 6. No plans on endoscopic evaluation 7. Recommend outpatient screening colonoscopy 8. Patient may take low-dose aspirin daily Thank you for this consultation, patient is cleared from gastroenterology for discharge. Dr. Dee Randall I agree with the dictator's note, documented as a scribe by Alba Quach.
--- NOTE | 2023-05-03 14:55 | P.DS ---
Providers Date of admission: 05/01/23 23:12 Expected date of discharge: 05/03/23 Attending physician: Drew Perez Consults: 05/01/23 23:09 Consult Physician Routine Consulting Provider: Juanis Randall Consult Reason/Comments: abd pain, hematemesis Do you want consulting provider notified?: Yes, Notify in am Consult Physician Routine Consulting Provider: Jacob Randall Consult Reason/Comments: irregular rhythm Do you want consulting provider notified?: Yes, Notify in am Primary care physician: Elmo Thomas Hospital Course: Final diagnosis Abdominal pain likely secondary to constipation Isolated incidence of hemoptysis, x 1, resolved Lactic acidosis, resolved Hyponatremia secondary to poor oral intake CAD with history of stenting of the circumflex in 2010 History of endovascular aortic repair with AFX 2 device, 04/2018 Hypertension Hyperlipidemia Anxiety Nicotine dependence Daily alcohol use Medication noncompliance GI prophylaxis DVT prophylaxis Full code Discharge disposition Patient is being discharged in a stable condition with guarded prognosis to home. Patient will follow-up with Dr. Thomas in the outpatient setting upon discharge. Patient is to follow-up with cardiology as well as GI in the outpatient setting as scheduled. Total time taken is greater than 35 minutes. Hospital course This is a 63-year-old male who was recently admitted with abdominal pain with lactic acidosis being closely monitored. Patient also noted to have an irregular rhythm and evaluated by cardiology and made adjustments to medications recommending outpatient follow-up. Patient also evaluated by GI as there was a concern of a questionable hematemesis or hemoptysis which was 1 isolated incident and no further bleeding noted. Patient also noted to be constipated and reports this is chronic and was given a dose of MiraLAX patient is having small bowel movements recommend to continue with lactulose twice daily until having more regular bowel movements. Hold if having loose stools. Patient instructed to follow-up with primary care provider on discharge. Please refer to other consultation notes for further HPI. Currently no reports of chest pain, shortness of breath, or palpitations. Patient is afebrile. No reports of nausea or vomiting and patient is tolerating diet. Patient will be discharged home today. Guarded prognosis and high risk for readmissions given patient's continued noncompliance and comorbidities. Physical exam: Gen: This is a 63-year-old male who is awake, alert and oriented x 3, well- developed, well-nourished, elderly appearing HEENT: Head is atraumatic, normocephalic. Pupils equal, round. Sclerae is anicteric. NECK: Supple. No JVD. No lymphadenopathy. No thyromegaly. LUNGS: Clear to auscultation. No wheezes or rhonchi. No intercostal retractions. HEART: Regular rate and rhythm. No murmur. ABDOMEN: Soft. Bowel sounds are present. No masses. No tenderness. EXTREMITIES: No pedal edema. No calf tenderness. NEUROLOGICAL: Patient is awake, alert and oriented x3. Cranial nerves 2 through 12 are grossly intact. Please refer to medication reconciliation sheet for a list of medications. The impression and plan of care has been dictated by Kristina Gaona, Nurse Practitioner as directed. Dr. Román MD I have performed a history and examination and MDM of this patient, discussed the same with the dictator, and agree with the dictator's assessment and plan as written ,documented as a scribe. Based on total visit time, I have performed more than 50% of the visit. Patient Condition at Discharge: Stable Plan - Discharge Summary Discharge Rx Participant: No New Discharge Prescriptions: New Aspirin 81 mg PO DAILY #30 tab Furosemide [Lasix] 40 mg PO DAILY #30 tab Metoprolol Succinate (ER) [Toprol XL] 25 mg PO DAILY #30 tab Lactulose [Cephulac] 20 gm PO BID PRN #360 ml PRN Reason: Constipation Atorvastatin [Lipitor] 40 mg PO HS #30 tab Mag Hydrox/Al Hydrox/Simeth [Maalox] 15 ml PO Q6HR PRN ml PRN Reason: Indigestion Acetaminophen Tab [Tylenol] 650 mg PO Q6HR PRN tab PRN Reason: Mild Pain Or Fever > 100.5 Continue Bp Medication (Unknown) 1 tab PO DAILY PRN PRN Reason: Blood Pressure - High Discharge Medication List Bp Medication (Unknown) 1 tab PO DAILY PRN 05/02/23 [History] Acetaminophen Tab [Tylenol] 650 mg PO Q6HR PRN tab 05/03/23 [Rx] Aspirin 81 mg PO DAILY #30 tab 05/03/23 [Rx] Atorvastatin [Lipitor] 40 mg PO HS #30 tab 05/03/23 [Rx] Furosemide [Lasix] 40 mg PO DAILY #30 tab 05/03/23 [Rx] Lactulose [Cephulac] 20 gm PO BID PRN #360 ml 05/03/23 [Rx] Mag Hydrox/Al Hydrox/Simeth [Maalox] 15 ml PO Q6HR PRN ml 05/03/23 [Rx] Metoprolol Succinate (ER) [Toprol XL] 25 mg PO DAILY #30 tab 05/03/23 [Rx] Follow up Appointment(s)/Referral(s): Elmo Thomas DO [Primary Care Provider] - 1-2 days Juanis Randall MD [STAFF PHYSICIAN] - 3 Weeks Jacob Randall MD [STAFF PHYSICIAN] - 1 Week (Office will call with appointment ) Ambulatory/Diagnostic Orders: Complete Blood Count w/diff [LAB.AMB] Time Frame: 3 Days, Location: None Selected Patient Instructions/Handouts: Constipation (DC) Activity/Diet/Wound Care/Special Instructions: Activity limited until follow-up Continue low fiber diet and slowly advance as tolerated Continue taking medications as prescribed Follow-up with cardiology outpatient Follow-up primary care provider on discharge Repeat labs in the next few days Discharge Disposition: HOME SELF-CARE
[2023-05-04] MEDS ORDERED: ASPIRIN 81 MG PO SCH (09:00)
== END 2023-05-03 12:51 | disposition home or self-care (01) ==
LOC: EC 18:01 → 6NMEDSUR 23:12
PROVIDERS: ADMIT Hospitalist; ATTEND Hospitalist
DX: R04.2 Hemoptysis (principal); R06.02 Shortness of breath; R10.9 Unspecified abdominal pain; K59.00 Constipation, unspecified; E87.20 Acidosis, unspecified; E87.1 Hypo-osmolality and hyponatremia; I25.10 Atherosclerotic heart disease of native coronary artery without angina pectoris; Z95.5 Presence of coronary angioplasty implant and graft; I10 Essential (primary) hypertension; E78.5 Hyperlipidemia, unspecified; F41.9 Anxiety disorder, unspecified; F17.210 Nicotine dependence, cigarettes, uncomplicated; F10.20 Alcohol dependence, uncomplicated; I25.2 Old myocardial infarction; I71.40 Abdominal aortic aneurysm, without rupture, unspecified; Z91.148 Patient's other noncompliance with medication regimen for other reason; Z95.828 Presence of other vascular implants and grafts; Z79.82 Long term (current) use of aspirin
CPT/HCPCS: 96360; 96361 ×2; 96365; 96366 ×2; 99285; 36415; 93005; 86900; 86901; 80053 ×2; 82150; 83605 ×2; 83690; 85025; 85027; 86850; 82272; 81003; 74177; G0378 ×3; C9113 ×2; Q9967

== ENCOUNTER → 2023-05-26 | Outpatient (CLI) | payer OTHER ==
--- NOTE | 2023-05-31 11:05 | CT ---
EXAMINATION TYPE: CT angio abd aorta w/Runoff CT DLP: 1800.80 mGycm, Automated exposure control for dose reduction was used. DATE OF EXAM: 05/26/2023 9:23 AM COMPARISON: 05/01/2023, 05/13/2017. 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 3-D reconstructed images and maximum intensity projection images were obtained. CT angio abd aorta w /Runoff CT Contrast: Contrast used:115ml mL of Isovue 370 without and with IV Contrast, Oral contrast used: None FINDINGS: CTA Abdomen and pelvis: No evidence for intramural hematoma on noncontrast imaging. The visualized po rtions of the descending thoracic aorta are within normal limits. The abdominal aorta demonstrates ao rtobiiliac stent graft with excluded saccular aneurysm measuring up to 6.9 x 5.7 cm. No evidence for dissection. The origins of the abdominal aortic arterial vasculature is patent. The celiac axis and s uperior mesenteric artery arteries are patent. The origin of the inferior mesenteric artery is not we ll visualized and reconstitutes just past its origin. The stent graft is patent. The common iliac and external iliac arteries are patent. There is atherosclerotic plaque at the distal left external katherin c artery/common femoral artery origine with at least 50% stenosis series 5 image 183 and 70-90 % sten osis on image 177. CTA Lower extremities: Right: The common femoral artery is patent at least 50% stenosis from calcified plaque at series 5 im age 199. Superficial femoral artery is occluded just past its origin extending to the popliteal arter y with reconstitution this extends approximately 27 cm in length.. The posterior tibial artery crosse s the ankle limited anterior tibial artery is diminutive in poorly visualized distally. Left: Stenosis near the origin of the common femoral artery as described above of at least 50% series 5 image 23 of the common femoral artery. The superficial femoral artery demonstrates significant ath erosclerotic plaque with areas of 50-70% stenosis throughout its course. Higher grade stenosis sugges ivon at series 5 image 338a of at least 70-90%. High-grade stenosis also noted near the adductor hiatu s/proximal abdominal artery of 79% series 5 image 370 in the popliteal artery series 5 image 32. Ther e is occlusion of the popliteal artery series 5 image 400 with reconstitution before the bifurcation. The posterior and anterior tibial arteries both cross the ankle. Soft tissue streaky edema seen throughout both legs. There is fixation hardware in the left distal le g with hardware in the fibula and tibia. Hardware appears intact. Degeneration changes of the knees a nd hips also present in the right knee lateral aspect of the tibial plateau demonstrates significant subchondral cystic change. LOWER CHEST: Mild coronary artery and aortic valve leaflet calcifications. LIVER: Few scattered calcified lesions in the tania hepatis unclear if they're within the bile ducts or within the arterial vasculature. GALLBLADDER AND BILE DUCTS: Unremarkable. PANCREAS: Unremarkable. SPLEEN: Low-density cyst measuring up to 37 mm. ADRENAL GLANDS: Unremarkable. KIDNEYS AND URETERS: No evidence of hydronephrosis or renal calculus. The ureters are unremarkable. Left renal sinus vascular calcification. PELVIS BLADDER: Unremarkable REPRODUCTIVE: Unremarkable. ABDOMEN & PELVIS STOMACH AND BOWEL: No evidence of bowel obstruction. Scattered colonic diverticula throughout the abd omen. PERITONEUM: No evidence of pneumoperitoneum or free fluid. VASCULATURE: No evidence of aortic aneurysm. MUSCULOSKELETAL: No acute osseous abnormalities LYMPH NODES: No gross evidence for lymphadenopathy. SOFT TISSUE/ABDOMINAL WALL: Postsurgical changes anterior abdominal wall. Left fat-containing inguina l hernia. IMPRESSION Abdomen: 1. Aortobiiliac stent graft appears patent with excluded saccular aneurysm without evidence for endo leak. 2. Poor visualization of the inferior mesenteric artery origin with reconstitution just past its ar gin. 3. Left external iliac artery areas of high-grade stenosis of the 70-90%. 4. Right external Moderate atherosclerosis of the arterial vasculature. 5. Colonic diverticulosis. 6. Simple appearing splenic cyst. Left: 1. Severe atherosclerosis of the superficial official femoral artery with varying degrees of 50-90% stenosis along its course. 2. Occlusion of the popliteal artery with reconstitution before the bifurcation. 3. Both the anterior posterior tibial arteries cross the ankle. Right: 1. Occlusion of the superficial femoral artery extending from its origin to the popliteal artery [id number] roximately 27 cm in length. 2. The posterior tibial arteries cross the ankle. 3. The anterior tibial artery is diminutive and not visualized crossing the ankle.
== END | disposition home or self-care (01) ==
LOC: RADCTMAIN 08:10
PROVIDERS: ATTEND Surgery Vascular Surgery
DX: I74.3 Embolism and thrombosis of arteries of the lower extremities (principal); K57.30 Diverticulosis of large intestine without perforation or abscess without bleeding; D73.4 Cyst of spleen; I77.1 Stricture of artery
CPT/HCPCS: 75635; Q9967

== ENCOUNTER 2023-05-30 14:12 | Inpatient (IN) | payer OTHER ==
[2023-05-30 15:01] LABS: INR 1.2 (<1.2); Partial Thromboplastin Time 26.6 sec (22.0-30.0); Prothrombin Time 12.5 sec (10.0-12.5)
[2023-05-30 15:02] LABS: ALT 11 U/L (4-49); AST 32 U/L (17-59); African American GFR (CKD) >90 (>60 ml/min/1.73 sqM); Albumin 3.6 g/dL (3.5-5.0); Alkaline Phosphatase 247 U/L (38-126); Anion Gap 9 mmol/L; Blood Urea Nitrogen 4 mg/dL (9-20); Calcium 8.6 mg/dL (8.4-10.2); Carbon Dioxide 23 mmol/L (22-30); Chloride 103 mmol/L (98-107); Glucose 98 mg/dL (74-99); Non-African American GFR(CKD) >90 (>60 ml/min/1.73 sqM); Potassium 4.7 mmol/L (3.5-5.1); Sodium 135 mmol/L (137-145); Total Bilirubin 1.2 mg/dL (0.2-1.3); Total Protein 6.5 g/dL (6.3-8.2)
[2023-05-30 15:18] LABS: Anisocytosis Slight; Basophils # (A) 0.1 k/uL (0-0.2); Basophils % (A) 1 %; Eosinophils # (A) 0.2 k/uL (0-0.7); Eosinophils % (A) 1 %; HCT 35.5 % (39.0-53.0); HGB 10.3 gm/dL (13.0-17.5); Hypochromasia Slight; Lymphocytes # (A) 1.2 k/uL (1.0-4.8); Lymphocytes % (A) 8 %; MCH 33.9 pg (25.0-35.0); MCHC 29.1 g/dL (31.0-37.0); MCV 116.4 fL (80.0-100.0); Macrocytosis Marked; Mean Platelet Volume 8.2; Monocytes # (A) 0.7 k/uL (0-1.0); Monocytes % (A) 5 %; Neutrophils # (A) 13.4 k/uL (1.3-7.7); Neutrophils % (A) 84 %; Platelet Count 405 k/uL (150-450); RBC 3.05 m/uL (4.30-5.90); RDW 19.1 % (11.5-15.5); WBC 15.9 k/uL (3.8-10.6)
--- NOTE | 2023-05-30 15:27 | ED ---
Extremity Problem HPI - General Source: patient, RN notes reviewed Mode of arrival: ambulatory Limitations: no limitations <Sandy Balderrama - Last Filed: 05/30/23 15:41> - General Source: patient, RN notes reviewed Mode of arrival: ambulatory Limitations: no limitations <García Mckeon - Last Filed: 05/30/23 20:38> - General Chief complaint: Extremity Problem,Nontraumatic Stated complaint: Swelling of Feet, Admit per Dr. Foss Time Seen by Provider: 05/30/23 15:15 - History of Present Illness Initial comments: Quick Note: This is a 63-year-old male who presents to the emergency department for bilateral lower extremity pain. He had a follow up appointment with Dr. Emmanuel today, and he states that he advised him to come to the emergency department because he was not getting blood flow in his legs/feet. He had a CT of the legs done 4 days ago. Not taking any pain medication. (Sandy Balderrama) Patient is a pleasant 63-year-old male presenting to the emergency department with concern for foot ulcer. Patient states this started 2 to 3 weeks ago. Patient does have discomfort. Patient has been seeing vascular who did do imaging and plans on procedure. Patient does have discomfort especially with walking. Discomfort is mild at rest. No fevers. Patient has been on outpatient antibiotics. Patient is not on any blood thinners (García Mckeon) - Related Data Home Medications Medication Instructions Recorded Confirmed Bp Medication (Unknown) 1 tab PO DAILY PRN 05/02/23 05/02/23 Previous Rx's Medication Instructions Recorded Acetaminophen Tab [Tylenol] 650 mg PO Q6HR PRN tab 05/03/23 Aspirin 81 mg PO DAILY #30 tab 05/03/23 Atorvastatin [Lipitor] 40 mg PO HS #30 tab 05/03/23 Furosemide [Lasix] 40 mg PO DAILY #30 tab 05/03/23 Lactulose [Cephulac] 20 gm PO BID PRN #360 ml 05/03/23 Mag Hydrox/Al Hydrox/Simeth 15 ml PO Q6HR PRN ml 05/03/23 [Maalox] Metoprolol Succinate (ER) [Toprol 25 mg PO DAILY #30 tab 05/03/23 XL] Allergies Allergy/AdvReac Type Severity Reaction Status Date / Time No Known Allergies Allergy Verified 05/01/23 18:13 Review of Systems ROS Other: All systems not noted in ROS Statement are negative. <Sandy Balderrama - Last Filed: 05/30/23 15:41> ROS Other: All systems not noted in ROS Statement are negative. Constitutional: Denies: fever, chills Skin: Reports: as per HPI, rash <García Mckeon - Last Filed: 05/30/23 20:38> ROS Statement: Those systems with pertinent positive or pertinent negative responses have been documented in the HPI. Past Medical History Past Medical History: Coronary Artery Disease (CAD), Chest Pain / Angina, GERD/Reflux, Hyperlipidemia, Hypertension, Myocardial Infarction ([place]) Additional Past Medical History / Comment(s): AAA. Hx gout. HX FX LT Ankle 05/2017. POSS HERNIA IN ABD. Last Myocardial Infarction Date:: 2010 History of Any Multi-Drug Resistant Organisms: None Reported Past Surgical History: Heart Catheterization With Stent, Orthopedic Surgery Additional Past Surgical History / Comment(s): LT WRIST SX, UNSURE IF ANY METAL PLACED. Lt.ankle surgery, 11 screws. Stent x1. EXPLORATORY LAPAROTOMY 01/19/18, UNABLE TO REPAIR AAA. Stent to Abdominal Aortic Aneurysm 2022. Past Anesthesia/Blood Transfusion Reactions: Previous Problems w/ Anesthesia Additional Past Anesthesia/Blood Transfusion Reaction / Comment(s): "Takes a lot to put him out." Date of Last Stent Placement:: 2010 Past Psychological History: Anxiety Smoking Status: Current every day smoker Past Alcohol Use History: Daily Past Drug Use History: Marijuana - Past Family History Father Family Medical History: Cancer Additional Family Medical History / Comment(s): AGE 72 STOAM[place] CA W/ METS Mother Family Medical History: Hypertension <Sandy Balderrama - Last Filed: 05/30/23 15:41> General Exam Limitations: no limitations <Sandy Balderrama - Last Filed: 05/30/23 15:41> Limitations: no limitations General appearance: alert, in no apparent distress Head exam: Present: normocephalic Eye exam: Present: normal appearance Neck exam: Present: normal inspection Respiratory exam: Present: normal lung sounds bilaterally Cardiovascular Exam: Present: regular rate, normal rhythm Expanded Peripheral pulses: 0: Posterior Tibialis (R), Posterior Tibialis (L), Dorsalis Pedis (R), Dorsalis Pedis (L), 1+: Femoral (L) GI/Abdominal exam: Present: soft. Absent: tenderness Extremities exam: Present: pedal edema Neurological exam: Present: alert Skin exam: Present: other (Dry gangrenous changes left large toe with some mild proximal cellulitic change) <García Mckeon - Last Filed: 05/30/23 20:38> - General Exam Comments Initial Comments: Visual Physical Exam Vital signs reviewed General: Well-appearing, nontoxic, no acute distress. Head: Normocephalic, atraumatic Eyes: PERRLA, EOMI ENT: Airway patent Chest: Nonlabored breathing Skin: No visual rash, normal skin tone Neuro: Alert and oriented 3 Musculoskeletal: No gross abnormalities (Sandy Balderrama) Course Vital Signs 05/30/23 05/30/23 14:19 19:58 Temperature 98 F Pulse Rate 79 78 Respiratory 16 18 Rate Blood Pressure 146/84 120/83 O2 Sat by Pulse 97 99 Oximetry Medical Decision Making - Lab Data Result diagrams: 05/30/23 14:30 05/30/23 14:30 <Sandy Balderrama - Last Filed: 05/30/23 15:41> - Lab Data Result diagrams: 05/30/23 14:30 05/30/23 14:30 <García Mckeon - Last Filed: 05/30/23 20:38> - Medical Decision Making I performed the QuickNote portion of this chart. Signed Sandy Balderrama PA-C. (Sandy Balderrama) Was pt. sent in by a medical professional or institution (SUSAN Baez, LEPIDOPTERIST, urgent care, hospital, or [facility]...) When possible be specific @ -[Patient was sent in by his vascular did you speak to anyone other than the patient for history (EMS, parent, family, police, friend...)? What history was obtained from this source @ -No Did you review nursing and triage notes (agree or disagree)? Why? @ -I reviewed and agree with nursing and triage notes Were old charts reviewed (outside hosp., previous admission, EMS record, old EKG, old radiological studies, urgent care reports/EKG's, [facility] records)? Report findings @ -Previous visit reviewed. Unable to obtain report from CT scan Differential Diagnosis (chest pain, altered mental status, abdominal pain women, abdominal pain men, vaginal bleeding, weakness, fever, dyspnea, syncope, headache, dizziness, GI bleed, back pain, seizure, CVA, palpatations, mental health, musculoskeletal)? @ -Differential Fever: Pneumonia, viral URI, endocarditis, myocarditis, pericarditis, otitis, sinusitis, peritonsillar Abscess, retropharyngeal Abscess, epiglottitis, pe ritonitis, appendicitis, Maribel cystitis, diverticulitis, hepatitis, colitis, UTI, PID, TOA, pyelonephritis, prostatitis, epididymitis, meningitis, encephalitis, pulmonary embolism, CVA, thyroid storm, pancreatitis, adrenal crisis, cavernous sinus thrombosis, this is not meant to be an all-inclusive list. EKG interpreted by me (3pts min.). @ -As above X-rays interpreted by me (1pt min.). @ -None done CT interpreted by me (1pt min.). @ -None done U/S interpreted by me (1pt. min.). @ -None done What testing was considered but not performed or refused? (CT, X-rays, U/S, labs)? Why? @ -Considered angiogram however patient just had CT done. What meds were considered but not given or refused? Why? @ -None Did you discuss the management of the patient with other professionals (professionals i.e. , PA, LEPIDOPTERIST, lab, RT, psych nurse, director of social work, sales office manager, teacher, systems support officer, case consultant)? Give summary @ -Case discussed with practitioner Kristina Carpenter, covering Dr. Thomas who will admit. Case also discussed with Dr. emmanuel who would like IV antibiotics, Zosyn and he will do angiogram. No need for anticoagulation at this time Was smoking cessation discussed for >3mins.? @ -No Was critical care preformed (if so, how long)? @ -No Were there social determinants of health that impacted care today? How? (Homelessness, low income, unemployed, alcoholism, drug addiction, transpo rtation, low edu. Level, literacy, decrease access to med. care, fci, rehab)? @ -No Was there de-escalation of care discussed even if they declined (Discuss DNR or withdrawal of care, Hospice)? DNR status @ -No What co-morbidities impacted this encounter? (DM, HTN, Smoking, COPD, CAD, Cancer, CVA, ARF, Chemo, Hep., AIDS, mental health diagnosis, sleep apnea, morbid obesity)? @ -None Was patient admitted / discharged? Hospital course, mention meds given and route, prescriptions, significant lab abnormalities, going to OR and other pertinent info. @ -Patient updated on results and plan. Patient will be admitted with IV antibiotics and vascular consult. Undiagnosed new problem with uncertain prognosis? @ -No Drug Therapy requiring intensive monitoring for toxicity (Heparin, Nitro, Insu ifeoma, Cardizem)? @ -No Were any procedures done? @ -No Diagnosis/symptom? @ -Dry gangrene left great toe Acute, or Chronic, or Acute on Chronic? @ -Acute Uncomplicated (without systemic symptoms) or Complicated (systemic symptoms)? @ -Complicated with vascular insufficiency Side effects of treatment? @ -No Exacerbation, Progression, or Severe Exacerbation? @ -No Poses a threat to life or bodily function? How? (Chest pain, [place], [place], pneumonia, PE, COPD, DKA, ARF, appy, cholecystitis, CVA, Diverticulitis, Homicidal, Suicidal, threat to staff... and all critical care pts) @ -No (García Mckeon) - Lab Data Lab Results 05/30/23 05/30/23 05/30/23 Range/Units 14:30 14:30 14:30 WBC 15.9 H (3.8-10.6) k/uL RBC 3.05 L (4.30-5.90) m/uL Hgb 10.3 L (13.0-17.5) gm/dL Hct 35.5 L (39.0-53.0) % MCV 116.4 H (80.0-100.0) fL MCH 33.9 (25.0-35.0) pg MCHC 29.1 L (31.0-37.0) g/dL RDW 19.1 H (11.5-15.5) % Plt Count 405 (150-450) k/uL MPV 8.2 Neutrophils % 84 % Lymphocytes % 8 % Monocytes % 5 % Eosinophils % 1 % Basophils % 1 % Neutrophils # 13.4 H (1.3-7.7) k/uL Lymphocytes # 1.2 (1.0-4.8) k/uL Monocytes # 0.7 (0-1.0) k/uL Eosinophils # 0.2 (0-0.7) k/uL Basophils # 0.1 (0-0.2) k/uL Manual Slide Review Performed Hypochromasia Slight Anisocytosis Slight Macrocytosis Marked A PT 12.5 (10.0-12.5) sec INR 1.2 H (<1.2) APTT 26.6 (22.0-30.0) sec Sodium 135 L (137-145) mmol/L Potassium 4.7 (3.5-5.1) mmol/L Chloride 103 (98-107) mmol/L Carbon Dioxide 23 (22-30) mmol/L Anion Gap 9 mmol/L BUN 4 L (9-20) mg/dL Creatinine 0.59 L (0.66-1.25) mg/dL Est GFR (CKD-EPI)AfAm >90 (>60 ml/min/1.73 sqM) Est GFR (CKD-EPI)NonAf >90 (>60 ml/min/1.73 sqM) Glucose 98 (74-99) mg/dL Calcium 8.6 (8.4-10.2) mg/dL Total Bilirubin 1.2 (0.2-1.3) mg/dL AST 32 (17-59) U/L ALT 11 (4-49) U/L Alkaline Phosphatase 247 H (38-126) U/L Total Protein 6.5 (6.3-8.2) g/dL Albumin 3.6 (3.5-5.0) g/dL Disposition <Sandy Balderrama - Last Filed: 05/30/23 15:41> Is patient prescribed a controlled substance at d/c from ED?: No Time of Disposition: 20:38 <García Mckeon - Last Filed: 05/30/23 20:38> Clinical Impression: Gangrene of toe of left foot, Arterial insufficiency Disposition: ADMITTED IP TO THIS HOSP Condition: Serious Referrals: Elmo Thomas DO [Primary Care Provider] - 1-2 days
[2023-05-30] MEDS ORDERED: HYDROmorphone 0.5 MG/0.5 ML SYRINGE IVP PRN (20:38)
[2023-05-30] MEDS ORDERED: NALOXONE 0.4 MG/ML 1 ML VIAL IV PRN (20:38)
[2023-05-30] MEDS: SODIUM CHLORIDE 0.9% 1,000 ML IV STA (20:52)
[2023-05-30] MEDS: PIPERACILLIN-TAZOBACTAM 3.375 GM in SODIUM CHLORIDE 0.9% 100 ML IVPB SCH (20:53)
[2023-05-30] MEDS: SODIUM CHLORIDE 0.9% 1,000 ML IV SCH (23:04)
[2023-05-31 03:46] LABS: Anisocytosis Slight; Basophils # (A) 0.1 k/uL (0-0.2); Basophils % (A) 1 %; Eosinophils # (A) 0.2 k/uL (0-0.7); Eosinophils % (A) 2 %; HCT 29.2 % (39.0-53.0); HGB 9.1 gm/dL (13.0-17.5); Hypochromasia Moderate; Lymphocytes # (A) 1.1 k/uL (1.0-4.8); Lymphocytes % (A) 12 %; MCH 37.3 pg (25.0-35.0); MCHC 31.1 g/dL (31.0-37.0); Mean Platelet Volume 8.3; Monocytes # (A) 0.5 k/uL (0-1.0); Monocytes % (A) 5 %; Neutrophils # (A) 7.3 k/uL (1.3-7.7); Neutrophils % (A) 78 %; Platelet Count 316 k/uL (150-450); RBC 2.43 m/uL (4.30-5.90); RDW 19.2 % (11.5-15.5); WBC 9.3 k/uL (3.8-10.6)
[2023-05-31 03:52] LABS: ALT 9 U/L (4-49); AST 25 U/L (17-59); African American GFR (CKD) >90 (>60 ml/min/1.73 sqM); Albumin 2.8 g/dL (3.5-5.0); Alkaline Phosphatase 196 U/L (38-126); Anion Gap 6 mmol/L; Blood Urea Nitrogen 5 mg/dL (9-20); Carbon Dioxide 23 mmol/L (22-30); Chloride 104 mmol/L (98-107); Globulin 2.7 g/dL; Glucose 90 mg/dL (74-99); Non-African American GFR(CKD) >90 (>60 ml/min/1.73 sqM); Sodium 133 mmol/L (137-145); Total Protein 5.5 g/dL (6.3-8.2)
[2023-05-31 04:03] LABS: Macrocytosis Marked
[2023-05-31] MEDS ORDERED: METOPROLOL SUCCINATE (ER) 25 MG TAB.ER.24H PO PRN (06:03)
[2023-05-31] MEDS: PANTOPRAZOLE 40 MG/10 ML VIAL IV SCH (08:03)
--- NOTE | 2023-05-31 10:13 | P.GSCN ---
History of Present Illness Consult date: 05/31/23 Reason for Consult: Dry gangrene, peripheral arterial disease Requesting physician: García Mckeon History of present illness: This is a pleasant 63-year-old male known to Dr. Inman who was in his office yesterday with complaints of left foot extremity pain, dry gangrene great toe with peripheral arterial disease. Patient was instructed to come to the hospital to undergo angiogram and likely intervention. He has a past medical history including abdominal aortic aneurysm status post endovascular aortic repair, coronary artery disease with previous stent, GERD, hyperlipidemia, hypertension, and myocardial infarction. Patient states he has no fevers or chills, no shortness of breath or chest pain. Left foot painful to touch but no pain in the left calf. He had a CT angiogram abdomen pelvis with runoff done on 05/26/2023 however the report has not been completed. Radiology has been notified and asked to complete the read. He had undergone lower extremity arterial duplex back in March this year. ABIs right 0.75 and left 0.63. Patient is afebrile. WBC 9.3 hemoglobin 9.1 platelet count 316,000 sodium 133 potassium 4.0 BUN 5 creatinine 0.6 Review of Systems A 14 point review systems was completed all pertinent positives and negatives as stated in the HPI. Past Medical History Past Medical History: Coronary Artery Disease (CAD), Chest Pain / Angina, GERD/Reflux, Hyperlipidemia, Hypertension, Myocardial Infarction ([place]) Additional Past Medical History / Comment(s): AAA. Hx gout. HX FX LT Ankle 05/2017. POSS HERNIA IN ABD. Last Myocardial Infarction Date:: 2010 History of Any Multi-Drug Resistant Organisms: None Reported Past Surgical History: Heart Catheterization With Stent, Orthopedic Surgery Additional Past Surgical History / Comment(s): LT WRIST SX, UNSURE IF ANY METAL PLACED. Lt.ankle surgery, 11 screws. Stent x1. EXPLORATORY LAPAROTOMY 01/19/18, UNABLE TO REPAIR AAA. Stent to Abdominal Aortic Aneurysm 2022. Past Anesthesia/Blood Transfusion Reactions: Previous Problems w/ Anesthesia Additional Past Anesthesia/Blood Transfusion Reaction / Comm: "Takes a lot to put him out." Date of Last Stent Placement:: 2010 Past Psychological History: Anxiety Smoking Status: Current every day smoker Past Alcohol Use History: Daily Past Drug Use History: Marijuana - Past Family History Father Family Medical History: Cancer Additional Family Medical History / Comment(s): AGE 72 [place] CA W/ METS Mother Family Medical History: Hypertension Medications and Allergies Home Medications Medication Instructions Recorded Confirmed Type Cephalexin [Keflex] 500 mg PO Q12HR 05/30/23 05/30/23 History Metoprolol Succinate (ER) [Toprol 25 mg PO DAILY PRN 05/30/23 05/30/23 History XL] Allergies Allergy/AdvReac Type Severity Reaction Status Date / Time No Known Allergies Allergy Verified 05/30/23 21:14 Surgical - Exam Vital Signs Temp Pulse Resp BP Pulse Ox 98 F 79 16 146/84 97 05/30/23 14:19 05/30/23 14:19 05/30/23 14:19 05/30/23 14:19 05/30/23 14:19 General appearance: The patient is alert, oriented, appears in no acute distress. HET: Head is normocephalic and atraumatic. Pupils are equal and reactive. Neck: Supple. Heart: Regular. Lungs: Equal expansion, normal respiratory effort. Abdomen: Soft, nontender, nondistended. Extremities: Bilateral lower extremity pedal edema, warm to the touch, good capillary refill. Left great toe with dry gangrene. Neurological: No focal deficits. Alert and oriented. Results - Labs 05/31/23 03:14 05/31/23 03:14 Abnormal Lab Results - Last 24 Hours (Table) 05/30/23 05/30/23 05/30/23 Range/Units 14:30 14:30 14:30 WBC 15.9 H (3.8-10.6) k/uL RBC 3.05 L (4.30-5.90) m/uL Hgb 10.3 L (13.0-17.5) gm/dL Hct 35.5 L (39.0-53.0) % MCV 116.4 H (80.0-100.0) fL MCH (25.0-35.0) pg MCHC 29.1 L (31.0-37.0) g/dL RDW 19.1 H (11.5-15.5) % Neutrophils # 13.4 H (1.3-7.7) k/uL Macrocytosis Marked A INR 1.2 H (<1.2) Sodium 135 L (137-145) mmol/L BUN 4 L (9-20) mg/dL Creatinine 0.59 L (0.66-1.25) mg/dL Plasma Lactic Acid Ricco (0.7-2.0) mmol/L Calcium (8.4-10.2) mg/dL Alkaline Phosphatase 247 H (38-126) U/L Total Protein (6.3-8.2) g/dL Albumin (3.5-5.0) g/dL 05/30/23 05/30/23 05/31/23 Range/Units 20:08 23:34 03:14 WBC (3.8-10.6) k/uL RBC 2.43 L (4.30-5.90) m/uL Hgb 9.1 L (13.0-17.5) gm/dL Hct 29.2 L (39.0-53.0) % MCV 120.0 H (80.0-100.0) fL MCH 37.3 H (25.0-35.0) pg MCHC (31.0-37.0) g/dL RDW 19.2 H (11.5-15.5) % Neutrophils # (1.3-7.7) k/uL Macrocytosis Marked A INR (<1.2) Sodium (137-145) mmol/L BUN (9-20) mg/dL Creatinine (0.66-1.25) mg/dL Plasma Lactic Acid Ricco 2.5 H* 2.8 H* (0.7-2.0) mmol/L Calcium (8.4-10.2) mg/dL Alkaline Phosphatase (38-126) U/L Total Protein (6.3-8.2) g/dL Albumin (3.5-5.0) g/dL 05/31/23 Range/Units 03:14 WBC (3.8-10.6) k/uL RBC (4.30-5.90) m/uL Hgb (13.0-17.5) gm/dL Hct (39.0-53.0) % MCV (80.0-100.0) fL MCH (25.0-35.0) pg MCHC (31.0-37.0) g/dL RDW (11.5-15.5) % Neutrophils # (1.3-7.7) k/uL Macrocytosis INR (<1.2) Sodium 133 L (137-145) mmol/L BUN 5 L (9-20) mg/dL Creatinine 0.60 L (0.66-1.25) mg/dL Plasma Lactic Acid Ricco (0.7-2.0) mmol/L Calcium 8.0 L (8.4-10.2) mg/dL Alkaline Phosphatase 196 H (38-126) U/L Total Protein 5.5 L (6.3-8.2) g/dL Albumin 2.8 L (3.5-5.0) g/dL Diabetes panel 05/30/23 05/31/23 Range/Units 14:30 03:14 Sodium 135 L 133 L (137-145) mmol/L Potassium 4.7 4.0 (3.5-5.1) mmol/L Chloride 103 104 (98-107) mmol/L Carbon Dioxide 23 23 (22-30) mmol/L BUN 4 L 5 L (9-20) mg/dL Creatinine 0.59 L 0.60 L (0.66-1.25) mg/dL Glucose 98 90 (74-99) mg/dL Calcium 8.6 8.0 L (8.4-10.2) mg/dL AST 32 25 (17-59) U/L ALT 11 9 (4-49) U/L Alkaline Phosphatase 247 H 196 H (38-126) U/L Total Protein 6.5 5.5 L (6.3-8.2) g/dL Albumin 3.6 2.8 L (3.5-5.0) g/dL Calcium panel 05/30/23 05/31/23 Range/Units 14:30 03:14 Calcium 8.6 8.0 L (8.4-10.2) mg/dL Albumin 3.6 2.8 L (3.5-5.0) g/dL Pituitary panel 05/30/23 05/31/23 Range/Units 14:30 03:14 Sodium 135 L 133 L (137-145) mmol/L Potassium 4.7 4.0 (3.5-5.1) mmol/L Chloride 103 104 (98-107) mmol/L Carbon Dioxide 23 23 (22-30) mmol/L BUN 4 L 5 L (9-20) mg/dL Creatinine 0.59 L 0.60 L (0.66-1.25) mg/dL Glucose 98 90 (74-99) mg/dL Calcium 8.6 8.0 L (8.4-10.2) mg/dL Adrenal panel 05/30/23 05/31/23 Range/Units 14:30 03:14 Sodium 135 L 133 L (137-145) mmol/L Potassium 4.7 4.0 (3.5-5.1) mmol/L Chloride 103 104 (98-107) mmol/L Carbon Dioxide 23 23 (22-30) mmol/L BUN 4 L 5 L (9-20) mg/dL Creatinine 0.59 L 0.60 L (0.66-1.25) mg/dL Glucose 98 90 (74-99) mg/dL Calcium 8.6 8.0 L (8.4-10.2) mg/dL Total Bilirubin 1.2 1.0 (0.2-1.3) mg/dL AST 32 25 (17-59) U/L ALT 11 9 (4-49) U/L Alkaline Phosphatase 247 H 196 H (38-126) U/L Total Protein 6.5 5.5 L (6.3-8.2) g/dL Albumin 3.6 2.8 L (3.5-5.0) g/dL Assessment and Plan Assessment: 1. Left great toe dry gangrene 2. Left foot pain with peripheral arterial disease 3. History of coronary artery disease status post stent 4. History of abdominal aortic aneurysm status post endovascular repair 5. Hyperlipidemia 6. Hypertension Plan: 1. Continue symptomatic and supportive care 2. Patient may have regular diet 3. N.p.o. after midnight 4. Patient scheduled for abdominal aortogram with left lower extremity angiogram tomorrow with possible intervention 5. Further recommendations forthcoming based on clinical course 6. Medical management per primary medical team Thank you for this consultation, we will continue to follow. The impression and plan of care has been dictated as directed. Dr. Isaac I performed a history and examination of this patient, discussed the same with the dictator. I agree with the dictator's note ,documented as a scribe. Any additional findings or plans will be noted.
[2023-05-31] MEDS ORDERED: ALPRAZolam 0.25 MG TAB PO PRN (12:57)
[2023-05-31] MEDS ORDERED: TEMAZEPAM 15 MG CAP PO PRN (12:57)
[2023-05-31] MEDS: THIAMINE 100 MG TAB PO SCH (15:51)
[2023-05-31] MEDS: HEPARIN SODIUM,PORCINE 5,000 UNIT/ML 1 ML VIAL SQ SCH (15:51)
--- NOTE | 2023-05-31 23:11 | HP ---
HISTORY AND PHYSICAL CHIEF COMPLAINT: Dry gangrene as well as peripheral vascular disease. HISTORY OF PRESENT ILLNESS: This is a 63-year-old gentleman with a past medical history of multiple medical problems, admitted with left big toe infection, black discoloration, dry gangrene and severe pain and the patient was planned to have angiogram and possible intervention. Subsequently, the patient was admitted for further evaluation and treatment. There is no history of any fever, rigors, or chills. As mentioned earlier, the patient is complaining of severe pain at this time. PAST MEDICAL HISTORY: Reviewed include peripheral vascular disease, history of CAD, hypertension, hyperlipidemia. Rest of the history and rest of the chart is also reviewed. HOME MEDICATIONS: Reviewed include Keflex. ALLERGIES: None. FAMILY HISTORY: History of stomach cancer. SOCIAL HISTORY: Current smoking THC. REVIEW OF SYSTEMS: Fourteen-point review is negative except as mentioned earlier. PHYSICAL EXAMINATION: VITAL SIGNS: Pulse is 74, blood pressure 124/76, respirations 16. HEENT: Conjunctivae normal. NECK: No JVD. CARDIOVASCULAR: S1, S2. RESPIRATIONS: Breath sounds diminished at the bases. ABDOMEN: Soft, nontender. No mass palpable. LEGS: Pulses diminished bilaterally. Otherwise, left great toe blackish discoloration, pain, tenderness. Some erythema also present. LABORATORY DATA: Lactic acid 2.8 and WBC 15.9. ASSESSMENT: 1. Right great toe dry gangrene with possibly surrounding cellulitis. 2. Peripheral vascular disease. 3. Severe left foot pain. 4. History of coronary artery disease stent. 5. Gastroesophageal reflux disease. 6. Hypertension. 7. Hyperlipidemia. 8. History of abdominal aortic aneurysm. 9. History of gout. 10.History of anxiety. 11.Continued ongoing nicotine dependence. RECOMMENDATIONS AND DISCUSSION: This is a 63-year-old gentleman, who presented with multiple complex medical issues, we will monitor the patient closely. Continue the current management and continue symptomatic treatment. Otherwise, at this time continue the antibiotics follow the cultures. Surgical evaluation. Resume the home medication. Monitor renal functions closely. Prognosis guarded. Pain management. Further recommendations to follow. MMODL / IJN: [id number] /
[2023-06-01] MEDS ORDERED: LIDOCAINE 1% INJ 10MG/ML (20 ML MDV) ONE (07:28)
[2023-06-01] MEDS ORDERED: fentaNYL (PF) 50 MCG/ML 2 ML AMP ONE (07:34)
[2023-06-01] MEDS ORDERED: HEPARIN SODIUM 1,000 UN/ML (10ML VL) ONE (07:34)
[2023-06-01] MEDS: fentaNYL (PF) 50 MCG/1 ML VIAL IVP ONE (07:50)
[2023-06-01] MEDS: MIDAZOLAM 2 MG/2 ML VIAL IVP ONE (07:50)
[2023-06-01] MEDS: LIDOCAINE 1% INJ 10MG/ML (20 ML MDV) SQ ONE (07:50)
[2023-06-01] MEDS: IOPAMIDOL-370 100ML BTL INTRATHECA ONE (08:10)
[2023-06-01] MEDS: SODIUM CHLORIDE 0.9% 1,000 ML IV ONE (08:11)
--- NOTE | 2023-06-01 09:06 | P.OP ---
Date of Procedure: 06/01/23 Description of Procedure: preoperative diagnosis: [place] 5 peripheral arterial disease left lower extremity Postoperative diagnosis: Same Procedure: Ultrasound-guided left radial artery access Placement of catheter in aorta, selective second order Aortogram with bilateral lower extremity runoffs Moderate conscious sedation with personal monitoring certified RN administration and personal hemodynamic monitoring for 20 minutes Surgeon: Sameera Isaac D.O. EBL: Less than 5 cc IV fluids: See records Urine output: Not measured Drains: None Complications: None immediately apparent Condition: Stable to recovery Operative indication and findings: Patient is a 63-year-old male with left great toe dry gangrene and evidence of peripheral vascular disease who was recommended to undergo an aortogram with potential revascularization if amenable. Risks and benefits were discussed. He seemingly understood and was willing to proceed. Procedure in detail: Patient was taken to the special suite and placed in supine position. The left upper extremity was prepped and draped in usual sterile fashion. A preprocedural timeout was performed, all parties were in agreement. Using the ultrasound, the left radial artery was identified. The skin overlying was anesthetized with 1% lidocaine plain. The artery was patent without significant LCB disease and a permanent image was stored. Under direct visualization, the artery was accessed and Seldinger technique was used to place a 5 slender sheath. Catheters and wires were then used to selectively place a catheter in the descending thoracic aorta and down into the abdominal aorta. Neurogram was performed. Catheter was then advanced to the level of the previous aortic endograft. After satisfactory images, catheters and wires were removed. The sheath was removed and a TR band was placed. Angiographic images. The aorta appeared normal in course and caliber. Visualized portions of the superior mesenteric, celiac and renal vessels appear patent. The aortobiiliac endograft appears patent without any significant areas of stenosis. On the right, the external, internal iliac appear patent without significant disease. The common femoral artery appears patent with mild disease. The profunda appears patent. There is occlusion of the superficial femoral artery very near its takeoff. There is reconstitution via collaterals from the profunda at the level of the adductor canal on the right. There is moderate disease through the popliteal artery. There is a visualized but diminutive anterior tibial artery. The posterior tibial artery appears patent. There is difficult visualization of the peroneal. On the left there appears to be modest calcific disease with multiple areas of significant stenosis at the common femoral artery. The superficial femoral artery has mild to moderate disease throughout without any obvious occlusions and to level the popliteal vessel. There is significant calcific disease of the proximal popliteal vessel and then abrupt occlusion of the popliteal segment behind the knee. Cx is difficult to visualize, there does appear to be collateral flow initially reconstituting an anterior tibial artery and subsequent backfilling of the distal popliteal. There is collateral flow that fills a posterior tibial vessel at the proximal calf. The posterior tibial artery appears to be relatively robust further distally. The anterior tibial is visualized at the ankle but delayed. Hardware is visualized in the ankle. Given this constellation of the findings with the area of full occlusion across the joint I believe the patient would best benefit from a common femoral endarterectomy and femoral to below-knee bypass [place] the below-knee popliteal versus the reconstituted portion of the posterior tibial, timing surgically dependent.
--- NOTE | 2023-06-01 09:26 | US ---
EXAMINATION TYPE: US vein mapping LT DATE OF EXAM: 06/01/2023 8:13 AM COMPARISON: NONE CLINICAL INDICATION: Male, 63 years old with history of planning bypass tomorrow; SIDE PERFORMED: Left TECHNIQUE: Lower extremity saphenous vein is examined and measured utilizing real time linear array sonography. Patient History: Smoker: Yes Heart Disease: Stents Previous DVT: No Vascular Surgery: Yes Discoloration: Yes Hypertension: Yes Diabetes: No Paralysis: No Varicosities: No Edema: No Measurements in mm: Right Greater Saphenous: Not Ordered Right Lesser Saphenous: Not Ordered Left Greater Saphenous: Groin: 6.8 x 7.3 mm High Thigh: 4.4 x 4.9 mm Mid Thigh: 4.0 x 4.8 mm Above Knee: 3.6 x 4.2 mm Knee: 3.8 x 4.9 mm Below Knee: 3.8 x 4.4 mm Mid Calf: 3.4 x 4.2 mm At Ankle: 3.2 x 5.2 mm Left Lesser Saphenous: Not needed IMPRESSION: 1.Left GSV measurements listed above. 2. Performing surgeon to determine viability as conduit.
[2023-06-01] MEDS: ACETAMINOPHEN TAB 500 MG TAB PO PRN (10:59)
[2023-06-01 11:48] LABS: BUN/Creat Ratio 6.86 Ratio (12.00-20.00); Blood Urea Nitrogen 4.8 mg/dL (9.0-27.0); Calcium 8.4 mg/dL (8.7-10.3); Carbon Dioxide 20.9 mmol/L (21.6-31.8); Chloride 106 mmol/L (96-109); Glucose 75 mg/dL (70-110); Potassium 4.2 mmol/L (3.5-5.5); Sodium 139 mmol/L (135-145)
[2023-06-01 12:10] LABS: Basophils # (A) 0.07 X 10*3/uL (0.00-0.10); Basophils % (A) 0.9 %; Eosinophils # (A) 0.21 X 10*3/uL (0.04-0.35); Eosinophils % (A) 2.6 %; HCT 27.5 % (39.6-50.0); HGB 8.5 g/dL (13.0-17.0); Lymphocytes # (A) 1.07 X 10*3/uL (0.90-5.00); MCH 36.8 pg (27.0-32.0); MCHC 30.9 g/dL (32.0-37.0); Mean Platelet Volume 9.8 FL (9.5-12.2); Monocytes # (A) 0.59 X 10*3/uL (0.20-1.00); Monocytes % (A) 7.2 %; NRBC Per 100 WBC 0 X 10*3/uL (0.00-0.01); Neutrophils # (A) 6.21 X 10*3/uL (1.80-7.70); Neutrophils % (A) 75.6 %; Platelet Count 287 X 10*3/uL (140-440); RBC 2.31 X 10*6/uL (4.40-5.60); RDW 18.6 % (11.5-14.5); WBC 8.21 X 10*3/uL (4.50-10.00)
--- NOTE | 2023-06-01 13:05 | P.CRDCN ---
History of Present Illness History of present illness: HISTORY OF PRESENT ILLNESS: This is a 63-year-old male with a past medical history significant for coronary artery disease, hypertension, hyperlipidemia, AAA, anxiety, nicotine dependence, and alcohol abuse. Patient follows in the office with Dr. Randall but has not been seen in the office since 2019. We have been asked to see the patient in consultation for cardiac clearance for bypass surgery. The patient was recently in the hospital in April 2023 secondary to abdominal pain and constipation. Cardiology was consulted at that time to evaluate patient for possible atrial fibrillation. However atrial fibrillation was ruled out and patient's EKG revealed sinus mechanism with PACs. Patient was at Dr. Inman's office yesterday with complaints of left lower extremity pain. The patient was instructed to come to the hospital. Patient underwent angiogram today with Dr. Isaac and is tentatively scheduled to undergo lower extremity intervention tomorrow. Patient examined at the bedside in the extended stay unit. Patient currently denies any chest pain or pressure. He denies any shortness of breath. Patient states he is not taking any cardiac medications on an outpatient basis. Blood pressure is elevated with a systolic reading between [id number]. Bedside telemetry reveals sinus mechanism. DIAGNOSTICS: - Laboratory data: WBC 9.3. Hemoglobin 9.1. Platelet count 316. Sodium 133. Potassium 4.0. BUN 5. Creatinine 0.60. Lactic acid 2.8. - Current home cardiac medications include metoprolol succinate 25 mg as needed. REVIEW OF SYSTEMS: At the time of my exam: CONSTITUTIONAL: Denies fever or chills. HEENT: Denies blurred vision, vision changes, or eye pain. Denies hemoptysis CARDIOVASCULAR: Denies chest pain. Denies orthopnea. Denies PND. Denies palpita tions RESPIRATORY: Denies shortness of breath. GASTROINTESTINAL: Denies abdominal pain. Denies nausea or vomiting. HEMATOLOGIC: Denies bleeding disorders. GENITOURINARY: Denies any blood in urine. SKIN: Denies pruitis. Denies rash. PHYSICAL EXAM: VITAL SIGNS: Reviewed. GENERAL: Well-developed in no acute distress. HEENT: Head is normocephalic. Pupils are equal, round. Sclerae anicteric. Mucous membranes of the mouth are moist. Neck supple. No JVD or thyromegaly LUNGS: Respirations even and unlabored. Lungs essentially clear to auscultation bilaterally. HEART: Regular rate and rhythm. S1 and S2 heard. ABDOMEN: Soft. Nondistended. Nontender. EXTREMITIES: Normal range of motion. No clubbing or cyanosis. Minimal bilateral lower extremity edema NEUROLOGIC: Awake and alert. Oriented x 3. ASSESSMENT: Peripheral vascular disease, tentatively scheduled to undergo lower extremity intervention tomorrow with vascular surgery Left great toe gangrene CAD with history of stenting to the circumflex in 2010 History of endovascular aortic repair with AFX 2 device, 04/2018 Hypertension Hyperlipidemia Anxiety Nicotine dependence Daily alcohol use History of medication noncompliance PLAN: Obtain EKG Obtain 2D echo to assess cardiac structure and function Add aspirin 81 mg daily, atorvastatin 40 mg at night, losartan 25 mg daily, and metoprolol succinate 25 mg daily Continue telemetry monitoring and blood pressure monitoring N.p.o. at midnight Patient to undergo Lexiscan stress test tomorrow Patient is not cleared to undergo surgery from a cardiac standpoint. Cardiac clearance pending echocardiogram and Lexiscan stress test results Further recommendations pending patient course Nurse practitioner note has been reviewed by physician. Signing provider agrees with the documented findings, assessment, and plan of care documented by SLUMBER ROOM ATTENDANT as a scribe. Past Medical History Past Medical History: Coronary Artery Disease (CAD), Chest Pain / Angina, GERD/Reflux, Hyperlipidemia, Hypertension, Myocardial Infarction (SD) Additional Past Medical History / Comment(s): AAA. Hx gout. HX FX LT Ankle 05/2017. POSS HERNIA IN ABD. Last Myocardial Infarction Date:: 2010 History of Any Multi-Drug Resistant Organisms: None Reported Past Surgical History: Heart Catheterization With Stent, Orthopedic Surgery Additional Past Surgical History / Comment(s): LT WRIST SX, UNSURE IF ANY METAL PLACED. Lt.ankle surgery, 11 screws. Stent x1. EXPLORATORY LAPAROTOMY 01/19/18, UNABLE TO REPAIR AAA. Stent to Abdominal Aortic Aneurysm 2022. Past Anesthesia/Blood Transfusion Reactions: Previous Problems w/ Anesthesia Additional Past Anesthesia/Blood Transfusion Reaction / Comment(s): "Takes a lot to put him out." Date of Last Stent Placement:: 2010 Past Psychological History: Anxiety Additional Psychological History / Comment(s): . Smoking Status: Current every day smoker Past Alcohol Use History: Daily Past Drug Use History: Marijuana Additional Drug Use History / Comment(s): Uses marijuana daily, half a joint. Instructed to hold 24 hrs prior to procedure - Past Family History Father Family Medical History: Cancer Additional Family Medical History / Comment(s): AGE 72 [place] CA W/ METS Mother Family Medical History: Hypertension Medications and Allergies Home Medications Medication Instructions Recorded Confirmed Type Cephalexin [Keflex] 500 mg PO Q12HR 05/30/23 05/30/23 History Metoprolol Succinate (ER) [Toprol 25 mg PO DAILY PRN 05/30/23 05/30/23 History XL] Allergies Allergy/AdvReac Type Severity Reaction Status Date / Time No Known Allergies Allergy Verified 05/30/23 21:14 Physical Exam Vitals: Vital Signs Temp Pulse Pulse Resp BP BP Pulse Ox 06/01/23 10:04 72 16 133/71 98 06/01/23 09:34 79 16 158/79 94 L 06/01/23 09:04 72 16 166/72 95 06/01/23 08:49 78 16 180/79 93 L 06/01/23 08:34 76 16 177/78 96 06/01/23 08:19 84 16 192/98 95 06/01/23 07:30 97.6 F 70 17 144/79 98 06/01/23 01:32 98.2 F 67 18 133/82 98 05/31/23 20:00 98 F 87 16 132/85 90 L 05/31/23 14:00 98.6 F 76 18 117/81 97 Intake and Output 05/31/23 06/01/23 06/01/23 22:59 06:59 14:59 Intake Total 875 730 Balance 875 730 Intake: IV 250 Intake, IV Titration 375 Amount Sodium Chloride 0.9% 1, 375 000 ml @ 75 mls/hr IV . [id number] [facility] Rx#:[id number] Oral 500 480 Other: Voiding Method Toilet # Voids 2 Results 06/01/23 06:14 06/01/23 06:14 Current Medications Generic Name Dose Route Start Last Admin Trade Name Freq PRN Reason Stop Dose Admin Hydrocodone Bitart/Acetaminophen 1 each 05/31/23 12:36 Hydrocodone/Apap 5-325mg 1 Each Tab PO Q6HR PRN Pain Alprazolam 0.25 mg 05/31/23 12:57 Alprazolam 0.25 Mg Tab PO TID PRN Anxiety Folic Acid 1 mg 06/01/23 12:00 Folic Acid 1 Mg Tab PO DAILY@1200 [facility] Heparin Sodium (Porcine) 5,000 unit 05/31/23 13:00 05/31/23 21:46 Heparin Sodium,Porcine 5,000 Unit/Ml 1 Ml Vial SQ 5,000 unit Q12HR MISSY Administration Hydromorphone HCl 1 mg 05/30/23 20:38 Hydromorphone 1 Mg/Ml 1 Ml Syringe IVP Q3HR PRN Severe Pain (Scale 7 to 10) Hydromorphone HCl 0.5 mg 05/30/23 20:38 Hydromorphone 0.5 Mg/0.5 Ml Syringe IVP Q3HR PRN Moderate Pain (Scale 4 to 6) Piperacillin Sod/Tazobactam 100 mls @ 25 mls/hr 05/30/23 20:08 06/01/23 00:29 Sod 3.375 gm/ Sodium Chloride IVPB 25 mls/hr Q8HR MISSY Administration Protocol Sodium Chloride 1,000 mls @ 75 mls/hr 05/30/23 20:45 06/01/23 00:50 Saline 0.9% IV Not Given .[id number] [facility] Metoprolol Succinate 25 mg 05/31/23 06:03 Metoprolol Succinate (Er) 25 Mg Tab.Er.24h PO DAILY PRN high bp Multivitamins 1 each 06/01/23 12:00 Multivitamins, Thera 1 Each Tab PO DAILY@1200 [facility] Naloxone HCl 0.2 mg 05/30/23 20:38 Naloxone 0.4 Mg/Ml 1 Ml Vial IV Q2M PRN Opioid Reversal Pantoprazole Sodium 40 mg 05/31/23 09:00 05/31/23 08:03 Pantoprazole 40 Mg/10 Ml Vial IV 40 mg DAILY MISSY Administration Senna 8.6 mg 06/01/23 09:00 Sennosides 8.6 Mg Tab PO BID MISSY Temazepam 15 mg 05/31/23 12:57 Temazepam 15 Mg Cap PO HS PRN Insomnia Thiamine HCl 100 mg 05/31/23 17:30 05/31/23 15:51 Thiamine 100 Mg Tab PO 100 mg BID-W/MEALS MISSY Administration Intake and Output 05/31/23 06/01/23 06/01/23 22:59 06:59 14:59 Intake Total 875 730 Balance 875 730 Intake: IV 250 Intake, IV Titration 375 Amount Sodium Chloride 0.9% 1, 375 000 ml @ 75 mls/hr IV . [id number] [facility] Rx#:[id number] Oral 500 480 Other: Voiding Method Toilet # Voids 2 05/31/23 03:14 05/31/23 03:14
--- NOTE | 2023-06-01 14:37 | P.PN ---
Subjective Progress Note Date: 06/01/23 This is a 63-year-old male who was recently admitted after being at vascular surgery office noted to have left big toe infection with black discoloration and dry gangrene and severe pain. Patient is status post angiogram this morning with vascular surgery Dr. Isaac currently awaiting a bed on 3 S. Patient is afebrile with no reports of chest pain or shortness of breath. Patient is being resumed on diet and tolerating. Pain currently controlled on current regimen. Will discuss further with vascular surgery regarding surgical intervention. Cardiology was consulted for surgical clearance as patient will likely require common femoral endarterectomy. Patient be n.p.o. at midnight. Recommend repeat labs in the a.m. Review of systems: Constitutional: No reports of fatigue, fever, or chills Cardiovascular: No reports of chest pain or palpitations Respiratory: No reports of shortness of breath or cough GI: No reports of nausea, no reports of vomiting, no diarrhea : No reports of dysuria or retention Neurovascular: reports of generalized weakness, reports some left foot pain All medications have been reviewed PHYSICAL EXAMINATION: GENERAL: The patient is alert and oriented x4, Well developed, well nourished. HEENT: Pupils are round and equally reacting to light. EOMI. no scleral icterus. No conjunctival pallor. Normocephalic, atraumatic. No pharyngeal erythema. No thyromegaly. CARDIOVASCULAR: S1 and S2 muffled PULMONARY: diminished breath sounds bilaterally with no wheezing or rhonchi noted. ABDOMEN: soft. Nontender on exam. obese. non-distended, normoactive bowel sounds. No palpable organomegaly. MUSCULOSKELETAL: No joint swelling or deformity. EXTREMITIES: No cyanosis, clubbing, or pedal edema. NEUROLOGICAL: Gross neurological examination did not reveal any focal deficits. Diffuse weakness SKIN: No rashes. Assessment: Severe left foot pain secondary to left great toe dry gangrene Peripheral vascular disease History of coronary artery disease with stenting history of endovascular aortic repair in 2019 Gastroesophageal reflux disease Hypertension Hyperlipidemia History of anxiety History of gout History of abdominal aortic aneurysm Continued ongoing nicotine dependence History of alcohol use Noncompliance to medications and follow-up GI prophylaxis DVT prophylaxis Full code Plan: Recommend to continue with current medications and management with vascular surgery following. Patient underwent aortogram today noted to have significant occlusion and moderate disease throughout and discussing possible intervention tentatively scheduled for tomorrow of common femoral endarterectomy and femoral to below the knee bypass. Cardiology has been consulted for cardiac clearance 2D echo ordered as well as patient will be n.p.o. at midnight and stress test Patient currently awaiting a bed on 3 S. and is an extended stay. Will follow-up on repeat labs and continue to monitor closely Due to multiple complex medical issues, prognosis is guarded The impression and plan of care has been dictated by Kristina Gaona, nurse practitioner as directed. Dr. Chris MD I have performed a history and examination and MDM of this patient, discussed the same with the dictator, and agree with the dictator's assessment and plan as written ,documented as a scribe. Based on total visit time, I have performed more than 50% of the visit. Any additional findings or plans will be noted. Objective - Vital Signs Vital signs: Vital Signs Temp 97.6 F 06/01/23 07:30 Pulse 75 06/01/23 12:04 Resp 16 06/01/23 12:04 BP 151/75 06/01/23 12:04 Pulse Ox 98 06/01/23 12:04 FiO2 Intake & Output 05/31/23 06/01/23 06/01/23 18:59 06:59 18:59 Intake Total 875 970 Output Total 300 Balance 875 670 Weight 84.368 kg Intake: IV 250 Intake, IV Titration 375 Amount Sodium Chloride 0.9% 1, 375 000 ml @ 75 mls/hr IV . [id number] MISSY Rx#:[id number] Oral 500 720 Output: Urine 300 Other: Voiding Method Toilet # Voids 2 - Labs CBC & Chem 7: 06/01/23 06:14 06/01/23 06:14 Labs: Abnormal Lab Results - Last 24 Hours (Table) 06/01/23 06/01/23 Range/Units 06:14 06:14 RBC 2.31 L (4.40-5.60) X 10*6/uL Hgb 8.5 L (13.0-17.0) g/dL Hct 27.5 L (39.6-50.0) % MCV 119.0 H (80.0-97.0) FL MCH 36.8 H (27.0-32.0) pg MCHC 30.9 L (32.0-37.0) g/dL RDW 18.6 H (11.5-14.5) % Immature Gran # 0.06 H (0.00-0.04) X 10*3/uL Carbon Dioxide 20.9 L (21.6-31.8) mmol/L Anion Gap 12.10 H (4.00-12.00) mmol/L BUN 4.8 L (9.0-27.0) mg/dL BUN/Creatinine Ratio 6.86 L (12.00-20.00) Ratio Calcium 8.4 L (8.7-10.3) mg/dL Microbiology - Last 24 Hours (Table) 05/30/23 20:30 Blood Culture - Preliminary Blood 05/30/23 20:45 Blood Culture - Preliminary Blood
[2023-06-01] MEDS: MULTIVITAMINS, THERA 1 EACH TAB PO SCH (15:24)
[2023-06-01] MEDS: SENNOSIDES 8.6 MG TAB PO SCH (15:25)
[2023-06-01] MEDS: FOLIC ACID 1 MG TAB PO SCH (15:25)
[2023-06-01] MEDS: LOSARTAN 25 MG TAB PO SCH (15:34)
[2023-06-01] MEDS: METOPROLOL SUCCINATE (ER) 25 MG TAB.ER.24H PO SCH (15:34)
[2023-06-01] MEDS: HYDROcodone/APAP 5-325MG 1 EACH TAB PO PRN (20:55)
[2023-06-01] MEDS: ATORVASTATIN 40 MG TAB PO SCH (20:56)
[2023-06-02] MEDS ORDERED: CAFFEINE CITRATE 60 MG/3 ML VIAL IV PRN (06:00)
[2023-06-02] MEDS ORDERED: AMINOPHYLLINE 500 MG/20 ML VIAL IV PRN (06:00)
[2023-06-02] MEDS ORDERED: REGADENOSON 0.4 MG/5 ML SYRINGE IV PRN (06:00)
--- NOTE | 2023-06-02 10:24 | CA ---
Transthoracic Echo Report Name: Omar Herzog Age: 63 Gender: M : 1960 Exam Date: 06/01/2023 16:14 Exam Location: [place] [facility] Ht (in): 70 Wt (lb): 186 Ordering Physician: Faith Zuñiga Attending/Referring Phys: [id number], Yogesh Vitamin Manager Angélica Holcomb RDCS Procedure CPT: Indications: LV function, cardiac clearance Cardiac Hx: Technical Quality: Fair Contrast 1: Total Dose (mL): Contrast 2: Total Dose (mL): MEASUREMENTS (Male / Female) Normal Values 2D ECHO LV Diastolic Diameter PLAX 6.1 cm 4.2 - 5.9 / 3.9 - 5.3 cm LV Systolic Diameter PLAX 3.5 cm IVS Diastolic Thickness 1.1 cm 0.6 - 1.0 / 0.6 - 0.9 cm LVPW Diastolic Thickness 1.2 cm 0.6 - 1.0 / 0.6 - 0.9 cm LV Relative Wall Thickness 0.4 RV Internal Dim ED PLAX 3.0 cm LA Systolic Diameter LX 3.9 cm 3.0 - 4.0 / 2.7 - 3.8 cm LV Diastolic Volume MOD BP 78.5 cm??? 67 - 155 / 56 - 104 cm??? LV Systolic Volume MOD BP 28.4 cm??? - 58 / 19 - 49 cm??? LV Ejection Fraction MOD BP 63.8 % >= 55 % LV Cardiac Index MOD BP 1535.8 cm???/min???m??? LV Diastolic Volume MOD 4C 77.6 cm??? LV Systolic Volume MOD 4C 25.1 cm??? LV Ejection Fraction MOD 4C 67.6 % LV Cardiac Index MOD 4C 1609.7 cm???/min???m??? LV Diastolic Length 4C 9.1 cm LV Systolic Length 4C 7.2 cm LV Diastolic Volume MOD 2C 79.2 cm??? LV Systolic Volume MOD 2C 19.6 cm??? LV Ejection Fraction MOD 2C 75.2 % LV Cardiac Index MOD 2C 1825.7 cm???/min???m??? LV Diastolic Length 2C 9.0 cm LV Systolic Length 2C 3.7 cm LA Volume 64.6 cm??? 18 - 58 / 22 - 52 cm??? LA Volume Index 31.4 cm???/m??? 16 - 28 cm???/m??? M-MODE Aortic Root Diameter MM 3.5 cm MV E Point Septal Separation 0.8 cm DOPPLER AV Peak Velocity 122.6 cm/s AV Peak Gradient 6.0 mmHg MV Area PHT 4.1 cm??? Mitral E Point Velocity 80.2 cm/s Mitral A Point Velocity 81.1 cm/s Mitral E to A Ratio 1.0 MV Deceleration Time 187.1 ms LV E' Lateral Velocity 9.2 cm/s Mitral E to LV E' Lateral Ratio 8.8 LV E' Septal Velocity 7.3 cm/s Mitral E to LV E' Septal Ratio 11.0 FINDINGS Left Ventricle Left ventricular ejection fraction is estimated at 55-60 %. Mildly increased septal wall thickness. Mildly increased left ventricular diastolic diameter. Right Ventricle Normal right ventricular size. Unable to estimate the right ventricular systolic pressure. Right Atrium Normal right atrial size. Left Atrium Mildly increased left atrial volume. Mitral Valve Structurally normal mitral valve. Mild mitral regurgitation. Aortic Valve Trileaflet aortic valve. Thickened aortic valve without stenosis. Tricuspid Valve Structurally normal tricuspid valve. No tricuspid regurgitation. Pulmonic Valve Structurally normal pulmonic valve. No pulmonic regurgitation. Pericardium No pericardial effusion. Aorta Normal size aortic root and proximal ascending aorta. CONCLUSIONS Left ventricular ejection fraction is estimated at 55-60 %. Mild Concentric LVH Mild left atrial dilatation. Mild MR. Normal RA RV size. No significant other valvular dysfunction Previewed by: Dr Prem Grier (Electronically Signed) Final Date: 02 June 2023 10:24
[2023-06-02] MEDS: ASPIRIN 81 MG PO SCH (10:44)
--- NOTE | 2023-06-02 11:30 | CA ---
Lexiscan Nuclear Stress Test Report Name: Omar Herzog Exam Date: 06/02/2023 09:17 Exam Location: [facility] Stress Ht (in): 70 Wt (lb): 185 BSA: 2.02 Ordering Phys: Faith Zuñiga Referring Phys: DUSTIN Technologist: LISET MCDANIEL Age: 63 Gender: M : 1960 Procedure CPT: Indications: Reflex order-Stress test ICD-10 Codes: Patient History: HYPERCHOLESTEROLEMIA, CURRENT SMOKER, PRIOR [place], PRIOR CARDIAC CATH WITH STENTING Medications: Meds past 24 hrs: Pretest Chest Pain: STRESS TEST Lexiscan Protocol Exercise Duration (min:sec): 01:[address] Depressions (mm): Angina Score: Villalobos Score: Resting HR (bpm): 56 Peak HR (bpm): 75 Resting BP (mmHg): 125 / 74 Peak BP (mmHg): 135 / 70 MPHR: 156 Target HR: 133 % MPHR: 48 METS: 1.0 Total Dose: Peak Dose: Atropine: Double Product: 97745 BP Response: Stress Termination: Stress Symptoms: NO SYMPTOMS Stress Summary: ECG ANALYSIS Resting ECG: Stress ECG: CONCLUSIONS RESTING EKG: Sinus bradycardia, heart rate 57 bpm Patient recieved IV infusion of Lexiscan 0.4mg and at peak infusion STRESS EKG showed: [No significant ST-T wave changes diagnostic for ischemia by ST segment analysis] ARRYTHMIAS: [No ectopic rhythms or sustained arrythmias] CONCLUSION: 1. Normal hemodynamic and clinical response to Lexiscan infusion. 2. Non-ischemic EKG response to lexiscan infusion Please refer to the nuclear imaging portion of this stress test for complete interpretation of the study. Dr Prem Grier (Electronically Signed) Final Date: 02 June 2023 11:29
--- NOTE | 2023-06-02 12:47 | P.PN ---
Subjective Progress Note Date: 06/02/23 Principal diagnosis: Peripheral arterial disease, dry gangrene left toe Patient is seen and examined today as a follow-up. He went down for stress test today, results currently pending. Awaiting cardiology clearance. Yesterday he underwent aortogram with runoff with multiple areas of arterial disease on the left lower extremity. Recommendation is for common femoral endarterectomy and for moral to below-knee bypass. Patient overall is doing well. He denies any acute changes through the night. Denies any shortness of breath or chest pain. Still has some pain and discomfort on that left lower extremity. Objective - Vital Signs Vital signs: Vital Signs Temp 98.0 F 06/02/23 00:21 Pulse 56 L 06/02/23 04:00 Resp 16 06/02/23 04:00 BP 146/64 06/02/23 04:00 Pulse Ox 100 06/02/23 04:00 FiO2 Intake & Output 06/01/23 06/02/23 06/02/23 18:59 06:59 18:59 Intake Total 2100 Output Total 650 200 Balance 1450 -200 Intake: IV 500 Intake, IV Titration 700 Amount Piperacillin-Tazobactam 3 100 .375 gm In Sodium Chloride 0.9% 100 ml @ 25 mls/hr IVPB Q8HR [facility] Rx# :[id number] Sodium Chloride 0.9% 1, 600 000 ml @ 75 mls/hr IV . [id number] [facility] Rx#:[id number] Oral 900 Output: Urine 650 200 Other: Voiding Method Toilet Urinal # Voids 1 # Bowel Movements 1 - Exam General appearance: The patient is alert, oriented, appears in no acute distress. HET: Head is normocephalic and atraumatic. Pupils are equal and reactive. Neck: Supple. Abdomen: Soft, nondistended. Extremities: Left wrist access site without any bleeding, noted ecchymosis with no hematoma. Bilateral lower extremity pedal edema, warm to the touch, good capillary refill. Left great toe with dry gangrene. Neurological: No focal deficits. Alert and oriented. R - Labs CBC & Chem 7: 06/01/23 06:14 06/01/23 06:14 Labs: Abnormal Lab Results - Last 24 Hours (Table) 06/01/23 06/01/23 Range/Units 06:14 06:14 RBC 2.31 L (4.40-5.60) X 10*6/uL Hgb 8.5 L (13.0-17.0) g/dL Hct 27.5 L (39.6-50.0) % MCV 119.0 H (80.0-97.0) FL MCH 36.8 H (27.0-32.0) pg MCHC 30.9 L (32.0-37.0) g/dL RDW 18.6 H (11.5-14.5) % Immature Gran # 0.06 H (0.00-0.04) X 10*3/uL Carbon Dioxide 20.9 L (21.6-31.8) mmol/L Anion Gap 12.10 H (4.00-12.00) mmol/L BUN 4.8 L (9.0-27.0) mg/dL BUN/Creatinine Ratio 6.86 L (12.00-20.00) Ratio Calcium 8.4 L (8.7-10.3) mg/dL Microbiology - Last 24 Hours (Table) 05/30/23 20:30 Blood Culture - Preliminary Blood 05/30/23 20:45 Blood Culture - Preliminary Blood Assessment and Plan Assessment: 1. [place] 5 peripheral arterial disease of left lower extremity 2. Left great toe dry gangrene 3. History of coronary artery disease status post stent 4. History of abdominal aortic aneurysm status post endovascular repair 5. Hyperlipidemia 6. Hypertension Plan: 1. Continue symptomatic and supportive care 2. Recommend left common femoral endarterectomy with femoral to below the knee bypass. Date to be determined, awaiting cardiac clearance. 3. Cardiology on consult for cardiac clearance 4. Patient may have regular diet 6. Medical management per primary medical team Thank you for this consultation, we will continue to follow. The impression and plan of care has been dictated as directed. Dr. Inman I performed a history and examination of this patient, discussed the same with the dictator. I agree with the dictator's note ,documented as a scribe. Any additional findings or plans will be noted.
--- NOTE | 2023-06-02 14:13 | P.PN ---
Subjective Progress Note Date: 06/02/23 This is a 63-year-old male who was recently admitted after being at vascular surgery office noted to have left big toe infection with black discoloration and dry gangrene and severe pain. Patient is status post angiogram this morning with vascular surgery Dr. Isaac currently awaiting a bed on 3 S. Patient is afebrile with no reports of chest pain or shortness of breath. Patient is being resumed on diet and tolerating. Pain currently controlled on current regimen. Will discuss further with vascular surgery regarding surgical intervention. Cardiology was consulted for surgical clearance as patient will likely require common femoral endarterectomy. Patient be n.p.o. at midnight. Recommend repeat labs in the a.m. 06/02/2023 Patient is seen in follow-up today underwent a Lexiscan stress test this morning with cardiology following. Vascular surgery following planning on endarterectomy once cardiology has cleared the patient. Patient is afebrile with no reports of chest pain or shortness of breath. Patient is tolerating diet and denies any nausea or vomiting. 2D echo shows an EF of 55 to 60% with mild increased septal wall thickness without stenosis with mild mitral regurgitation. Patient continues on antibiotics in the form of Zosyn. Will follow-up with repeat labs and continue to monitor closely. Review of systems: Constitutional: No reports of fatigue, fever, or chills Cardiovascular: No reports of chest pain or palpitations Respiratory: No reports of shortness of breath or cough GI: No reports of nausea, no reports of vomiting, no diarrhea : No reports of dysuria or retention Neurovascular: reports of generalized weakness, reports some left foot pain All medications have been reviewed PHYSICAL EXAMINATION: GENERAL: The patient is alert and oriented x4, Well developed, well nourished. HEENT: Pupils are round and equally reacting to light. EOMI. no scleral icterus. No conjunctival pallor. Normocephalic, atraumatic. No pharyngeal erythema. No thyromegaly. CARDIOVASCULAR: S1 and S2 muffled PULMONARY: diminished breath sounds bilaterally with no wheezing or rhonchi noted. ABDOMEN: soft. Nontender on exam. obese. non-distended, normoactive bowel sounds. No palpable organomegaly. MUSCULOSKELETAL: No joint swelling or deformity. EXTREMITIES: No cyanosis, clubbing, or pedal edema. NEUROLOGICAL: Gross neurological examination did not reveal any focal deficits. Diffuse weakness SKIN: No rashes. Assessment: Severe left foot pain secondary to left great toe dry gangrene Peripheral vascular disease History of coronary artery disease with stenting history of endovascular aortic repair in 2019 Gastroesophageal reflux disease Hypertension Hyperlipidemia History of anxiety History of gout History of abdominal aortic aneurysm Continued ongoing nicotine dependence History of alcohol use Noncompliance to medications and follow-up GI prophylaxis DVT prophylaxis Full code Plan: Recommend to continue with current medications and management with vascular surgery following. Patient underwent aortogram and noted to have significant occlusion and moderate disease throughout and discussing possible intervention of possible common femoral endarterectomy and femoral to below the knee bypass. Cardiology following and patient underwent 2D echo as mentioned previously as well as stress test this morning, currently pending results. Patient has not been cleared by cardiology as of yet Continue on antibiotics for now empirically, blood cultures remain negative Will follow-up on repeat labs and continue to monitor closely Due to multiple complex medical issues, prognosis is guarded Awaiting cardiology clearance to proceed with surgical intervention with vascular surgery. The impression and plan of care has been dictated by Kristina Gaona, nurse practitioner as directed. Dr. Chris MD I have performed a history and examination and MDM of this patient, discussed the same with the dictator, and agree with the dictator's assessment and plan as written ,documented as a scribe. Based on total visit time, I have performed more than 50% of the visit. Any additional findings or plans will be noted. Objective - Vital Signs Vital signs: Vital Signs Temp 97.8 F 06/02/23 10:40 Pulse 59 L 06/02/23 10:40 Resp 16 06/02/23 10:40 BP 169/74 06/02/23 10:40 Pulse Ox 100 06/02/23 10:40 FiO2 Intake & Output 06/01/23 06/02/23 06/02/23 18:59 06:59 18:59 Intake Total 2100 Output Total 650 200 Balance 1450 -200 Intake: IV 500 Intake, IV Titration 700 Amount Piperacillin-Tazobactam 3 100 .375 gm In Sodium Chloride 0.9% 100 ml @ 25 mls/hr IVPB Q8HR [facility] Rx# :[id number] Sodium Chloride 0.9% 1, 600 000 ml @ 75 mls/hr IV . [id number] [facility] Rx#:[id number] Oral 900 Output: Urine 650 200 Other: Voiding Method Toilet Toilet Urinal Urinal # Voids 1 # Bowel Movements 1 - Labs CBC & Chem 7: 06/01/23 06:14 06/01/23 06:14 Labs: Microbiology - Last 24 Hours (Table) 05/30/23 20:30 Blood Culture - Preliminary Blood 05/30/23 20:45 Blood Culture - Preliminary Blood
--- NOTE | 2023-06-02 14:20 | P.PN ---
Subjective Progress Note Date: 06/02/23 HISTORY OF PRESENT ILLNESS: This is a 63-year-old male with a past medical history significant for coronary artery disease, hypertension, hyperlipidemia, AAA, anxiety, nicotine dependence, and alcohol abuse. Patient follows in the office with Dr. Randall but has not been seen in the office since 2019. We have been asked to see the patient in consultation for cardiac clearance for bypass surgery. The patient was recently in the hospital in April 2023 secondary to abdominal pain and constipation. Cardiology was consulted at that time to evaluate patient for possible atrial fibrillation. However atrial fibrillation was ruled out and patient's EKG revealed sinus mechanism with PACs. Patient was at Dr. Inman's office yesterday with complaints of left lower extremity pain. The patient was i nstructed to come to the hospital. Patient underwent angiogram today with Dr. Isaac and is tentatively scheduled to undergo lower extremity intervention tomorrow. Patient examined at the bedside in the extended stay unit. Patient currently denies any chest pain or pressure. He denies any shortness of breath. Patient states he is not taking any cardiac medications on an outpatient basis. Blood pressure is elevated with a systolic reading between [id number]. Bedside telemetry reveals sinus mechanism. DIAGNOSTICS: - Laboratory data: WBC 9.3. Hemoglobin 9.1. Platelet count 316. Sodium 133. Potassium 4.0. BUN 5. Creatinine 0.60. Lactic acid 2.8. - Current home cardiac medications include metoprolol succinate 25 mg as needed. 06/01 Patient has been transferred to the cardiac stepdown unit. He is tentatively scheduled to undergo lower extremity intervention for left great toe gangrene and waiting for cardiac clearance. He is scheduled for echocardiogram and Lexiscan stress test today. Blood pressure 146/64, heart rate 56, pulse ox 100% on room air. Repeat blood work reveals hemoglobin 8.5. Sodium 139, potassium 4.2, creatinine 0.7. Echocardiogram reveals EF of 55 to 60%, mild concentric left ventricular hypertrophy, mild MR. PHYSICAL EXAM: VITAL SIGNS: Reviewed. GENERAL: Well-developed in no acute distress. HEENT: Head is normocephalic. Pupils are equal, round. Sclerae anicteric. Mucous membranes of the mouth are moist. Neck supple. No JVD or thyromegaly LUNGS: Respirations even and unlabored. Lungs essentially clear to auscultation bilaterally. HEART: Regular rate and rhythm. S1 and S2 heard. ABDOMEN: Soft. Nondistended. Nontender. EXTREMITIES: No clubbing or cyanosis. Minimal bilateral lower extremity edema NEUROLOGIC: Awake and alert. Oriented x 3. ASSESSMENT: Peripheral vascular disease, tentatively scheduled to undergo lower extremity intervention with vascular surgery Left great toe gangrene CAD with history of stenting to the circumflex in 2010 History of endovascular aortic repair with AFX 2 device, 04/2018 Hypertension Hyperlipidemia Anxiety Nicotine dependence Daily alcohol use History of medication noncompliance PLAN: Continue aspirin 81 mg daily, atorvastatin 40 mg at night, and metoprolol succinate 25 mg daily Increase losartan to 50 mg daily Patient to undergo Lexiscan stress test today Patient is not cleared to undergo surgery from a cardiac standpoint. Cardiac clearance pending Lexiscan stress test results Further recommendations pending patient course Nurse practitioner note has been reviewed by physician. Signing provider agrees with the documented findings, assessment, and plan of care documented by [employer] as a scribe. Objective - Vital Signs Vital signs: Vital Signs Temp 98.0 F 06/02/23 00:21 Pulse 56 L 06/02/23 04:00 Resp 16 06/02/23 04:00 BP 146/64 06/02/23 04:00 Pulse Ox 100 06/02/23 04:00 FiO2 Intake & Output 06/01/23 06/02/23 06/02/23 18:59 06:59 18:59 Intake Total 2100 Output Total 650 200 Balance 1450 -200 Intake: IV 500 Intake, IV Titration 700 Amount Piperacillin-Tazobactam 3 100 .375 gm In Sodium Chloride 0.9% 100 ml @ 25 mls/hr IVPB Q8HR [facility] Rx# :[id number] Sodium Chloride 0.9% 1, 600 000 ml @ 75 mls/hr IV . [id number] [facility] Rx#:[id number] Oral 900 Output: Urine 650 200 Other: Voiding Method Toilet Urinal # Voids 1 # Bowel Movements 1 - Labs CBC & Chem 7: 06/01/23 06:14 06/01/23 06:14 Labs: Abnormal Lab Results - Last 24 Hours (Table) 06/01/23 06/01/23 Range/Units 06:14 06:14 RBC 2.31 L (4.40-5.60) X 10*6/uL Hgb 8.5 L (13.0-17.0) g/dL Hct 27.5 L (39.6-50.0) % MCV 119.0 H (80.0-97.0) FL MCH 36.8 H (27.0-32.0) pg MCHC 30.9 L (32.0-37.0) g/dL RDW 18.6 H (11.5-14.5) % Immature Gran # 0.06 H (0.00-0.04) X 10*3/uL Carbon Dioxide 20.9 L (21.6-31.8) mmol/L Anion Gap 12.10 H (4.00-12.00) mmol/L BUN 4.8 L (9.0-27.0) mg/dL BUN/Creatinine Ratio 6.86 L (12.00-20.00) Ratio Calcium 8.4 L (8.7-10.3) mg/dL Microbiology - Last 24 Hours (Table) 05/30/23 20:30 Blood Culture - Preliminary Blood 05/30/23 20:45 Blood Culture - Preliminary Blood
[2023-06-02] MEDS: LOSARTAN 25 MG TAB PO STA (14:30)
[2023-06-02] MEDS: NICOTINE 21MG/24HR PATCH TRANSDERM SCH (14:30)
[2023-06-02] MEDS: PIPERACILLIN-TAZOBACTAM 3.375 GM in SODIUM CHLORIDE 0.9% 100 ML IVPB SCH (18:51)
[2023-06-03] MEDS: LOSARTAN 50 MG TAB PO SCH (08:56)
[2023-06-03 11:39] LABS: Anisocytosis Slight; Basophils # (A) 0.1 k/uL (0-0.2); Basophils % (A) 1 %; Eosinophils # (A) 0.2 k/uL (0-0.7); Eosinophils % (A) 2 %; HCT 33.4 % (39.0-53.0); Hypochromasia Marked; Lymphocytes # (A) 1.2 k/uL (1.0-4.8); Lymphocytes % (A) 10 %; MCH 37.6 pg (25.0-35.0); MCHC 29.9 g/dL (31.0-37.0); Macrocytosis Marked; Mean Platelet Volume 7.9; Monocytes # (A) 0.6 k/uL (0-1.0); Monocytes % (A) 5 %; Neutrophils # (A) 9.5 k/uL (1.3-7.7); Neutrophils % (A) 81 %; Platelet Count 429 k/uL (150-450); RBC 2.65 m/uL (4.30-5.90); WBC 11.7 k/uL (3.8-10.6)
[2023-06-03 11:58] LABS: African American GFR (CKD) >90 (>60 ml/min/1.73 sqM); Anion Gap 10 mmol/L; Blood Urea Nitrogen 6 mg/dL (9-20); Calcium 8.3 mg/dL (8.4-10.2); Carbon Dioxide 18 mmol/L (22-30); Chloride 109 mmol/L (98-107); Glucose 70 mg/dL (74-99); Magnesium 1.8 mg/dL (1.6-2.3); Non-African American GFR(CKD) >90 (>60 ml/min/1.73 sqM); Sodium 137 mmol/L (137-145)
--- NOTE | 2023-06-03 12:32 | P.PN ---
Subjective Progress Note Date: 06/03/23 Principal diagnosis: left foot gangrene patient seen and examined. No new events overnight. Awaiting cardiac clearance for surgery. States foot is still causing significant pain. Objective - Vital Signs Vital signs: Vital Signs Temp 98.1 F 06/03/23 08:54 Pulse 69 06/03/23 11:00 Resp 19 06/03/23 11:00 BP 122/74 06/03/23 11:00 Pulse Ox 100 06/03/23 11:00 FiO2 Intake & Output 06/02/23 06/03/23 06/03/23 18:59 06:59 18:59 Intake Total 118 Balance 118 Intake: Oral 118 Other: Voiding Method Toilet Toilet Toilet Urinal Urinal Urinal # Voids 2 1 - Exam left great toe with dry gangrene non palpable dp or pt pulses monophasic dp and pt signal - Constitutional General appearance: Present: cooperative, no acute distress - EENT Eyes: Present: PERRLA - Respiratory Respiratory: bilateral: CTA - Cardiovascular Rhythm: regular - Neurologic Neurologic: Present: CNII-XII intact - Psychiatric Psychiatric: Present: A&O x's 3, appropriate affect, intact judgment & insight - Labs CBC & Chem 7: 06/03/23 10:40 06/03/23 10:40 Labs: Abnormal Lab Results - Last 24 Hours (Table) 06/03/23 06/03/23 Range/Units 10:40 10:40 WBC 11.7 H (3.8-10.6) k/uL RBC 2.65 L (4.30-5.90) m/uL Hgb 10.0 L (13.0-17.5) gm/dL Hct 33.4 L (39.0-53.0) % MCV 126.0 H D (80.0-100.0) fL MCH 37.6 H (25.0-35.0) pg MCHC 29.9 L (31.0-37.0) g/dL RDW 19.0 H (11.5-15.5) % Neutrophils # 9.5 H (1.3-7.7) k/uL Macrocytosis Marked A Chloride 109 H (98-107) mmol/L Carbon Dioxide 18 L (22-30) mmol/L BUN 6 L (9-20) mg/dL Creatinine 0.64 L (0.66-1.25) mg/dL Glucose 70 L (74-99) mg/dL Calcium 8.3 L (8.4-10.2) mg/dL Microbiology - Last 24 Hours (Table) 05/30/23 20:30 Blood Culture - Preliminary Blood 05/30/23 20:45 Blood Culture - Preliminary Blood Assessment and Plan Assessment: 1. [place] 5 peripheral arterial disease of left lower extremity 2. Left great toe dry gangrene 3. History of coronary artery disease status post stent 4. History of abdominal aortic aneurysm status post endovascular repair 5. Hyperlipidemia 6. Hypertension Plan: Continue symptomatic and supportive care Recommend left common femoral endarterectomy with femoral to below the knee bypass. Date to be determined, awaiting cardiac clearance. Cardiology on consult for cardiac clearance Patient may have regular diet Medical management per primary medical team
[2023-06-03] MEDS: LOSARTAN 25 MG TAB PO SCH (15:54)
--- NOTE | 2023-06-03 19:23 | P.PN ---
Subjective Progress Note Date: 06/03/23 HISTORY OF PRESENT ILLNESS: This is a 63-year-old male with a past medical history significant for coronary artery disease, hypertension, hyperlipidemia, AAA, anxiety, nicotine dependence, and alcohol abuse. Patient follows in the office with Dr. Randall but has not been seen in the office since 2019. We have been asked to see the patient in consultation for cardiac clearance for bypass surgery. The patient was recently in the hospital in April 2023 secondary to abdominal pain and constipation. Cardiology was consulted at that time to evaluate patient for possible atrial fibrillation. However atrial fibrillation was ruled out and patient's EKG revealed sinus mechanism with PACs. Patient was at Dr. Inman's office yesterday with complaints of left lower extremity pain. The patient was i nstructed to come to the hospital. Patient underwent angiogram today with Dr. Isaac and is tentatively scheduled to undergo lower extremity intervention tomorrow. Patient examined at the bedside in the extended stay unit. Patient currently denies any chest pain or pressure. He denies any shortness of breath. Patient states he is not taking any cardiac medications on an outpatient basis. Blood pressure is elevated with a systolic reading between [id number]. Bedside telemetry reveals sinus mechanism. DIAGNOSTICS: - Laboratory data: WBC 9.3. Hemoglobin 9.1. Platelet count 316. Sodium 133. Potassium 4.0. BUN 5. Creatinine 0.60. Lactic acid 2.8. - Current home cardiac medications include metoprolol succinate 25 mg as needed. 06/01 Patient has been transferred to the cardiac stepdown unit. He is tentatively scheduled to undergo lower extremity intervention for left great toe gangrene and waiting for cardiac clearance. He is scheduled for echocardiogram and Lexiscan stress test today. Blood pressure 146/64, heart rate 56, pulse ox 100% on room air. Repeat blood work reveals hemoglobin 8.5. Sodium 139, potassium 4.2, creatinine 0.7. Echocardiogram reveals EF of 55 to 60%, mild concentric left ventricular hypertrophy, mild MR. June 03, 2023 Patient is doing well from cardiovascular standpoint he denies having any active chest pain chest pressure shortness of breath. He denies any palpitations lightheadedness or dizziness. He is tolerating the current medications without any limitations. PHYSICAL EXAM: VITAL SIGNS: Reviewed. GENERAL: Well-developed in no acute distress. HEENT: Head is normocephalic. Pupils are equal, round. Sclerae anicteric. Mucous membranes of the mouth are moist. Neck supple. No JVD or thyromegaly LUNGS: Respirations even and unlabored. Lungs essentially clear to auscultation bilaterally. HEART: Regular rate and rhythm. S1 and S2 heard. ABDOMEN: Soft. Nondistended. Nontender. EXTREMITIES: No clubbing or cyanosis. Minimal bilateral lower extremity edema NEUROLOGIC: Awake and alert. Oriented x 3. ASSESSMENT: Peripheral vascular disease, tentatively scheduled to undergo lower extremity intervention with vascular surgery Left great toe gangrene CAD with history of stenting to the circumflex in 2010 History of endovascular aortic repair with AFX 2 device, 04/2018 Hypertension Hyperlipidemia Anxiety Nicotine dependence Daily alcohol use History of medication noncompliance PLAN: Continue aspirin 81 mg daily, atorvastatin 40 mg at night, and metoprolol succinate 25 mg daily Reduce losartan back to 25 mg daily Official Lexiscan read is not in but on my review of images, it appears that Lexiscan does not show any evidence of reversible or fixed perfusion defect. There is normal thickening and brightening of all myocardial segments. Based of echo and Lexiscan nuclear stress test imaging, I can report that patient is cleared from cardiovascular standpoint to undergo vascular surgery. Obviously patient will be at moderate to high risk for high risk procedure because of his underlying risk factors and prior history of CAD. At present these risk factors are nonmodifiable with further intervention or testing. Continue aspirin, atorvastatin and metoprolol during the perioperative.. May hold losartan on the day of the surgery Cardiology team will sign off. Please reconsult us in case of any questions with Objective - Vital Signs Vital signs: Vital Signs Temp 98.1 F 06/03/23 08:54 Pulse 63 06/03/23 15:47 Resp 17 06/03/23 15:47 BP 94/67 06/03/23 15:47 Pulse Ox 100 06/03/23 15:47 FiO2 Intake & Output 06/03/23 06/03/23 06/04/23 06:59 18:59 06:59 Intake Total 118 Balance 118 Intake: Oral 118 Other: Voiding Method Toilet Toilet Urinal Urinal # Voids 1 2 - Labs CBC & Chem 7: 06/03/23 10:40 06/03/23 10:40 Labs: Abnormal Lab Results - Last 24 Hours (Table) 06/03/23 06/03/23 Range/Units 10:40 10:40 WBC 11.7 H (3.8-10.6) k/uL RBC 2.65 L (4.30-5.90) m/uL Hgb 10.0 L (13.0-17.5) gm/dL Hct 33.4 L (39.0-53.0) % MCV 126.0 H D (80.0-100.0) fL MCH 37.6 H (25.0-35.0) pg MCHC 29.9 L (31.0-37.0) g/dL RDW 19.0 H (11.5-15.5) % Neutrophils # 9.5 H (1.3-7.7) k/uL Macrocytosis Marked A Chloride 109 H (98-107) mmol/L Carbon Dioxide 18 L (22-30) mmol/L BUN 6 L (9-20) mg/dL Creatinine 0.64 L (0.66-1.25) mg/dL Glucose 70 L (74-99) mg/dL Calcium 8.3 L (8.4-10.2) mg/dL Microbiology - Last 24 Hours (Table) 05/30/23 20:30 Blood Culture - Preliminary Blood 05/30/23 20:45 Blood Culture - Preliminary Blood
--- NOTE | 2023-06-04 00:08 | PN ---
PROGRESS NOTE DATE OF SERVICE: 06/03/2023 SUBJECTIVE: This is a 63-year-old gentleman, who was admitted with severe foot pain, has peripheral vascular disease. The patient had a stress test. Final report is pending at this time. A 2D echo, which I reviewed personally showed ejection fraction 50% to 60%. OBJECTIVE: VITAL SIGNS: Pulse is 69, blood pressure 120/70, respirations 18. CHEST: Clear to auscultation. CARDIOVASCULAR: S1, S2. RESPIRATIONS: Breath sounds diminished at the bases. ABDOMEN: Soft. NERVOUS SYSTEM: Nonfocal. LABORATORY DATA: Reviewed: Hemoglobin is 10. ASSESSMENT: 1. Severe left foot pain secondary to left great toe dry gangrene. 2. Peripheral vascular disease. 3. Status post stress test. 4. Coronary artery disease stent history. 5. Gastroesophageal reflux disease. 6. Hypertension. 7. Hyperlipidemia. 8. Multiple medical issues. RECOMMENDATIONS AND DISCUSSION: Recommend to continue current management and continue symptomatic treatment. Otherwise, I would recommend repeat labs and continue to monitor. Guarded prognosis. Further recommendations to follow. Closely follow with Cardiology for final stress reports. 2D echo is normal. MMODL / IJN: [id number] /
[2023-06-04 08:24] LABS: Anisocytosis Slight; Basophils # (A) 0.1 k/uL (0-0.2); Basophils % (A) 1 %; Eosinophils # (A) 0.3 k/uL (0-0.7); Eosinophils % (A) 3 %; HCT 31.7 % (39.0-53.0); HGB 9.8 gm/dL (13.0-17.5); Hypochromasia Marked; Lymphocytes # (A) 1.2 k/uL (1.0-4.8); Lymphocytes % (A) 11 %; MCHC 30.8 g/dL (31.0-37.0); MCV 123.4 fL (80.0-100.0); Macrocytosis Marked; Mean Platelet Volume 8.4; Monocytes # (A) 0.7 k/uL (0-1.0); Monocytes % (A) 7 %; Neutrophils # (A) 7.8 k/uL (1.3-7.7); Neutrophils % (A) 76 %; Platelet Count 416 k/uL (150-450); RBC 2.57 m/uL (4.30-5.90); RDW 19.1 % (11.5-15.5); WBC 10.3 k/uL (3.8-10.6)
[2023-06-04 08:55] LABS: African American GFR (CKD) >90 (>60 ml/min/1.73 sqM); Anion Gap 8 mmol/L; Blood Urea Nitrogen 5 mg/dL (9-20); Calcium 8.1 mg/dL (8.4-10.2); Carbon Dioxide 20 mmol/L (22-30); Chloride 110 mmol/L (98-107); Glucose 82 mg/dL (74-99); Non-African American GFR(CKD) >90 (>60 ml/min/1.73 sqM); Sodium 138 mmol/L (137-145)
--- NOTE | 2023-06-05 03:15 | PN ---
PROGRESS NOTE DATE OF SERVICE: 06/04/2023 SUBJECTIVE: This is a 63-year-old gentleman, who was admitted with severe foot pain and peripheral vascular disease. He is scheduled to have femoral endarterectomy and bypass. The final stress report is still pending. OBJECTIVE: VITAL SIGNS: Pulse is 62, blood pressure 106/64, respirations 18. CHEST: Clear to auscultation. CARDIOVASCULAR: S1, S2. ABDOMEN: Soft. NERVOUS SYSTEM: Nonfocal. LABORATORY DATA: Hemoglobin 9.8. ASSESSMENT: 1. Severe left foot pain secondary to left great toe dry gangrene and peripheral vascular disease. 2. Status post stress test. 3. Coronary artery disease history. 4. Gastroesophageal reflux disease. 5. Hypertension. 6. Hyperlipidemia. RECOMMENDATIONS AND DISCUSSION: Recommend to continue current management and continue symptomatic treatment. Otherwise, recommend repeat labs tomorrow and closely follow with Vascular Surgery for possible surgery as mentioned earlier. Further recommendations to follow. We will obtain a final report of the stress test. MMODL / IJN: [id number] /
[2023-06-05 09:16] LABS: Anisocytosis Slight; Basophils # (A) 0.1 k/uL (0-0.2); Basophils % (A) 1 %; Eosinophils # (A) 0.3 k/uL (0-0.7); Eosinophils % (A) 3 %; HCT 28.6 % (39.0-53.0); HGB 8.6 gm/dL (13.0-17.5); Hypochromasia Marked; Lymphocytes # (A) 1.2 k/uL (1.0-4.8); Lymphocytes % (A) 13 %; MCH 37.6 pg (25.0-35.0); MCV 125.5 fL (80.0-100.0); Macrocytosis Marked; Mean Platelet Volume 7.9; Monocytes # (A) 0.5 k/uL (0-1.0); Monocytes % (A) 6 %; Neutrophils # (A) 6.7 k/uL (1.3-7.7); Neutrophils % (A) 75 %; Platelet Count 367 k/uL (150-450); RBC 2.27 m/uL (4.30-5.90); RDW 18.8 % (11.5-15.5); WBC 8.9 k/uL (3.8-10.6)
[2023-06-05 09:23] LABS: African American GFR (CKD) >90 (>60 ml/min/1.73 sqM); Anion Gap 8 mmol/L; Blood Urea Nitrogen 5 mg/dL (9-20); Calcium 8.3 mg/dL (8.4-10.2); Carbon Dioxide 19 mmol/L (22-30); Chloride 112 mmol/L (98-107); Glucose 94 mg/dL (74-99); Non-African American GFR(CKD) >90 (>60 ml/min/1.73 sqM); Potassium 4.1 mmol/L (3.5-5.1); Sodium 139 mmol/L (137-145)
--- NOTE | 2023-06-05 10:48 | NM ---
EXAMINATION TYPE: NM stress lexiscan cardiolite DATE OF EXAM: 06/02/2023 COMPARISON: NONE HISTORY: Cardiac clearance TECHNIQUE: After the intravenous administration of 10.21 mCi Tc 99m Sestamibi - Cardiolite resting S PECT images acquired 65 minutes post injection. At peak stress 26.3 mCi Tc 99m Sestamibi - Stress images obtained 33 minutes post injection The patient was stressed with 0.4mg Lexiscan. FINDINGS: No fixed defects are evident No reversible stress defects on Spect images. Polar maps suggests a lateral fixed defect which is not evident on the SPECT imaging. Wall motion is normal Ejection fraction is calculated to be 62 %. IMPRESSION: 1. No stress-induced ischemic changes
--- NOTE | 2023-06-05 11:08 | P.PN ---
Subjective Progress Note Date: 06/05/23 This is a 63-year-old gentleman with known medical history of peripheral vascular disease, admitted with left great toe gangrene, scheduled for femoral endarterectomy with bypass as per vascular surgery tomorrow. Cardiac clearance noted. Receiving gentle IV fluid hydration, IV antibiotics Zosyn. Afebrile, normal WBC. Hemoglobin 8.6, platelets 367, bicarb 19, BUN 5, creatinine 0.64. Positive left foot pain. Denies chest pain, palpitations or shortness of breath. Objective - Vital Signs Vital signs: Vital Signs Temp 98.1 F 06/05/23 08:00 Pulse 69 06/05/23 08:00 Resp 17 06/05/23 08:00 BP 109/69 06/05/23 08:00 Pulse Ox 99 06/05/23 08:00 FiO2 Intake & Output 06/04/23 06/05/23 06/05/23 18:59 06:59 18:59 Intake Total 1196 360 Output Total 200 Balance 1196 -200 360 Intake: Oral 1196 360 Output: Urine 200 Other: Voiding Method Toilet Toilet Toilet Urinal Urinal Urinal # Voids 2 2 # Bowel Movements 1 - Exam PHYSICAL EXAM: VITAL SIGNS: [As above] GENERAL: Alert and oriented x 3, lying in bed, no acute distress. HEENT: Normocephalic. Conjunctivae normal. eyes normal. NECK: Supple, no JVD. CARDIOVASCULAR: S1, S2 regular..No murmur RESPIRATION: Unlabored, equal air entry, , essentially clear with bilateral bases diminished. ABDOMEN: Soft, nontender . No guarding. Positive bowel sounds. LEGS: Black left great toe , dry gangrene, nonpalpable DP pulse. NERVOUS SYSTEM: Cranial N 2-12 grossly normal. No focal deficits. Strength and sensation grossly intact. Skin: Warm and dry, no rash - Labs CBC & Chem 7: 06/05/23 08:44 06/05/23 08:44 Labs: Abnormal Lab Results - Last 24 Hours (Table) 06/05/23 06/05/23 Range/Units 08:44 08:44 RBC 2.27 L (4.30-5.90) m/uL Hgb 8.6 L (13.0-17.5) gm/dL Hct 28.6 L (39.0-53.0) % MCV 125.5 H (80.0-100.0) fL MCH 37.6 H (25.0-35.0) pg MCHC 30.0 L (31.0-37.0) g/dL RDW 18.8 H (11.5-15.5) % Macrocytosis Marked A Chloride 112 H (98-107) mmol/L Carbon Dioxide 19 L (22-30) mmol/L BUN 5 L (9-20) mg/dL Creatinine 0.64 L (0.66-1.25) mg/dL Calcium 8.3 L (8.4-10.2) mg/dL Microbiology - Last 24 Hours (Table) 05/30/23 20:30 Blood Culture - Final Blood 05/30/23 20:45 Blood Culture - Final Blood Assessment and Plan Assessment: PAD, left great toe dry gangrene, surgery pending History of aortic aneurysm with endovascular repair CAD, history of stent placement Essential hypertension Hyperlipidemia Nicotine dependence History of alcohol abuse Plan: Continue on current medication regimen ,monitoring and symptomatic treatment. Maintain IV fluid hydration, Zosyn. Scheduled for femoral endarterectomy/bypass tomorrow. The impression and plan of care has been dictated as directed. : I performed a history and examination of this patient, discussed the same with the dictator. I agree with the dictator's note ,documented as a scribe. Any additional findings or plans will be noted.
--- NOTE | 2023-06-05 13:24 | P.PN ---
Subjective Progress Note Date: 06/05/23 Principal diagnosis: Peripheral arterial disease, dry gangrene left toe Patient was seen and examined today as a follow-up. He is without any acute changes through the night. Cardiology has been following patient and he underwent stress test and echocardiogram. Stress test showed no ischemic changes. Cardiology has cleared patient with moderate risk. Objective - Vital Signs Vital signs: Vital Signs Temp 98.1 F 06/05/23 08:00 Pulse 69 06/05/23 08:00 Resp 17 06/05/23 08:00 BP 109/69 06/05/23 08:00 Pulse Ox 99 06/05/23 08:00 FiO2 Intake & Output 06/04/23 06/05/23 06/05/23 18:59 06:59 18:59 Intake Total 1196 360 Output Total 200 Balance 1196 -200 360 Intake: Oral 1196 360 Output: Urine 200 Other: Voiding Method Toilet Toilet Urinal Urinal # Voids 2 2 # Bowel Movements 1 - Exam General appearance: The patient is alert, oriented, appears in no acute distress. HET: Head is normocephalic and atraumatic. Pupils are equal and reactive. Neck: Supple. Abdomen: Soft, nondistended. Extremities: Bilateral lower extremity pedal edema, warm to the touch, good capillary refill. Nonpalpable DP or PT pulses. Left great toe with dry gangrene. Neurological: No focal deficits. Alert and oriented. R - Labs CBC & Chem 7: 06/05/23 08:44 06/05/23 08:44 Labs: Abnormal Lab Results - Last 24 Hours (Table) 06/05/23 06/05/23 Range/Units 08:44 08:44 RBC 2.27 L (4.30-5.90) m/uL Hgb 8.6 L (13.0-17.5) gm/dL Hct 28.6 L (39.0-53.0) % MCV 125.5 H (80.0-100.0) fL MCH 37.6 H (25.0-35.0) pg MCHC 30.0 L (31.0-37.0) g/dL RDW 18.8 H (11.5-15.5) % Macrocytosis Marked A Chloride 112 H (98-107) mmol/L Carbon Dioxide 19 L (22-30) mmol/L BUN 5 L (9-20) mg/dL Creatinine 0.64 L (0.66-1.25) mg/dL Calcium 8.3 L (8.4-10.2) mg/dL Microbiology - Last 24 Hours (Table) 05/30/23 20:30 Blood Culture - Final Blood 05/30/23 20:45 Blood Culture - Final Blood Assessment and Plan Assessment: 1. [place] 5 peripheral arterial disease of left lower extremity 2. Left great toe dry gangrene 3. History of coronary artery disease status post stent 4. History of abdominal aortic aneurysm status post endovascular repair 5. Hyperlipidemia 6. Hypertension Plan: 1. Continue symptomatic and supportive care 2. Recommend left common femoral endarterectomy with femoral to below the knee bypass. Patient will be scheduled tomorrow for 224 3. Cardiology consulted for cardiac clearance. Patient underwent evaluation and has been cleared by cardiology with moderate to high risk for high risk procedures. 4. N.p.o. after midnight except for medications 6. Medical management per primary medical team Thank you for this consultation, we will continue to follow. The impression and plan of care has been dictated as directed. Dr. Inman I performed a history and examination of this patient, discussed the same with the dictator. I agree with the dictator's note ,documented as a scribe. Any additional findings or plans will be noted.
[2023-06-05 14:13] VITALS: BMI 26.6
[2023-06-06 11:18] LABS: Anisocytosis Slight; HCT 31.4 % (39.0-53.0); HGB 9.1 gm/dL (13.0-17.5); Hypochromasia Marked; MCHC 28.9 g/dL (31.0-37.0); Macrocytosis Marked; Mean Platelet Volume 8.4; Platelet Count 391 k/uL (150-450); RBC 2.45 m/uL (4.30-5.90); RDW 18.8 % (11.5-15.5); WBC 9.5 k/uL (3.8-10.6)
[2023-06-06 11:34] LABS: African American GFR (CKD) >90 (>60 ml/min/1.73 sqM); Anion Gap 8 mmol/L; Blood Urea Nitrogen 6 mg/dL (9-20); Calcium 7.9 mg/dL (8.4-10.2); Carbon Dioxide 18 mmol/L (22-30); Chloride 114 mmol/L (98-107); Glucose 69 mg/dL (74-99); Non-African American GFR(CKD) >90 (>60 ml/min/1.73 sqM); Potassium 3.8 mmol/L (3.5-5.1); Sodium 140 mmol/L (137-145)
[2023-06-06] MEDS: LACTATED RINGERS 1,000 ML IV ONE ×3 (14:05→18:20)
[2023-06-06] MEDS ORDERED: GLYCOPYRROLATE 0.2 MG/ML 2 ML VIAL ONE (15:04)
[2023-06-06] MEDS ORDERED: LIDOCAINE 1% INJ 10MG/ML (20 ML MDV) ONE (15:04)
[2023-06-06] MEDS ORDERED: MIDAZOLAM 2 MG/2 ML VIAL ONE (15:04)
[2023-06-06] MEDS ORDERED: ROCURONIUM 10 MG/ML (5 ML VIAL) IV ONE (15:04)
[2023-06-06] MEDS ORDERED: PHENYLEPHRINE 10 MG/ML VIAL ONE (15:04)
[2023-06-06] MEDS ORDERED: NEOSTIGMINE 1 MG/ML 10 ML VIAL ONE (15:04)
[2023-06-06] MEDS ORDERED: PROPOFOL 10 MG/ML 20 ML VIAL IV ONE (15:04)
[2023-06-06] MEDS ORDERED: fentaNYL (PF) 50 MCG/ML 2 ML AMP ONE (15:04)
[2023-06-06] MEDS ORDERED: HEPARIN SODIUM,PORCINE 5,000 UNIT/ML 1 ML VIAL ONE (15:04)
[2023-06-06] MEDS ORDERED: HEPARIN SODIUM,PORCINE 10,000 UNIT/ML 1 ML VIAL ONE (15:04)
[2023-06-06] MEDS ORDERED: HYDROmorphone (PF) 1 MG/ML ONE (15:04)
[2023-06-06] MEDS: IV FLUID CONTINUATION 1,000 ML IV ONE (15:08)
[2023-06-06 15:33] LABS: Glucose,Whole Blood 96 mg/dL (70-110)
--- NOTE | 2023-06-06 15:36 | P.PN ---
Subjective Progress Note Date: 06/06/23 This is a 63-year-old gentleman with known medical history of peripheral vascular disease, admitted with left great toe gangrene, scheduled for femoral endarterectomy with bypass as per vascular surgery tomorrow. Cardiac clearance noted. Receiving gentle IV fluid hydration, IV antibiotics Zosyn. Afebrile, normal WBC. Hemoglobin 8.6, platelets 367, bicarb 19, BUN 5, creatinine 0.64. Positive left foot pain. Denies chest pain, palpitations or shortness of breath. 06/06/2023 completed echocardiogram and stress test yesterday reporting no ischemic changes. NPO, scheduled for surgery today. Hemoglobin/labs pending. Objective - Vital Signs Vital signs: Vital Signs Temp 98.1 F 06/06/23 11:45 Pulse 62 06/06/23 14:07 Resp 16 06/06/23 14:07 BP 172/71 06/06/23 14:07 Pulse Ox 99 06/06/23 14:07 FiO2 Intake & Output 06/05/23 06/06/23 06/06/23 18:59 06:59 18:59 Intake Total 360 225 475 Balance 360 225 475 Weight 84.368 kg Intake: IV 225 375 0.9 225 375 Intake, IV Titration 100 Amount Piperacillin-Tazobactam 3 100 .375 gm In Sodium Chloride 0.9% 100 ml @ 25 mls/hr IVPB Q8H COUNT INCLUDES THE [facility] Rx#: [id number] Oral 360 Other: Voiding Method Toilet Toilet Urinal Urinal # Voids 2 1 1 # Bowel Movements 1 0 - Exam PHYSICAL EXAM: VITAL SIGNS: [As above] GENERAL: Alert and oriented x 3, lying in bed, no acute distress. HEENT: Normocephalic. Conjunctivae normal. eyes normal. NECK: Supple, no JVD. CARDIOVASCULAR: S1, S2 regular..No murmur RESPIRATION: Unlabored, equal air entry, , essentially clear with bilateral bases diminished. ABDOMEN: Soft, nontender . No guarding. Positive bowel sounds. LEGS: Black left great toe , dry gangrene, nonpalpable DP pulse. NERVOUS SYSTEM: Cranial N 2-12 grossly normal. No focal deficits. Strength and sensation grossly intact. Skin: Warm and dry, no rash - Labs CBC & Chem 7: 06/06/23 09:06 06/06/23 09:06 Labs: Abnormal Lab Results - Last 24 Hours (Table) 06/06/23 06/06/23 Range/Units 09:06 09:06 RBC 2.45 L (4.30-5.90) m/uL Hgb 9.1 L (13.0-17.5) gm/dL Hct 31.4 L (39.0-53.0) % MCV 128.0 H (80.0-100.0) fL MCH 37.0 H (25.0-35.0) pg MCHC 28.9 L (31.0-37.0) g/dL RDW 18.8 H (11.5-15.5) % Macrocytosis Marked A Chloride 114 H (98-107) mmol/L Carbon Dioxide 18 L (22-30) mmol/L BUN 6 L (9-20) mg/dL Creatinine 0.56 L (0.66-1.25) mg/dL Glucose 69 L (74-99) mg/dL Calcium 7.9 L (8.4-10.2) mg/dL Assessment and Plan Assessment: PAD, left great toe dry gangrene, surgery pending History of aortic aneurysm with endovascular repair CAD, history of stent placement Essential hypertension Hyperlipidemia Nicotine dependence History of alcohol abuse Plan: Continue on current medication regimen ,monitoring and symptomatic tr eatment.femoral endarterectomy/bypass scheduled for today. Pain management. Maintain IV fluid hydration, Zosyn. The impression and plan of care has been dictated as directed. : I performed a history and examination of this patient, discussed the same with the dictator. I agree with the dictator's note ,documented as a scribe. Any additional findings or plans will be noted.
[2023-06-06] MEDS: THROMBIN (BOVINE) 5,000 UNIT VIAL TOPICAL ONE (15:59)
[2023-06-06] MEDS: ceFAZolin 4 GM in SODIUM CHLORIDE 0.9% 1,000 ML IRRIGATION ONE (16:01)
[2023-06-06] MEDS: HEPARIN SODIUM,PORCINE 10,000 UNIT in SODIUM CHLORIDE 0.9% 1,000 ML IRRIGATION ONE (16:01)
--- NOTE | 2023-06-06 20:30 | P.OP ---
Date of Procedure: 06/06/23 Preoperative Diagnosis: Critical limb ischemia left lower extremity Left great toe gangrene Left external iliac occlusive disease Left femoral occlusive disease Left popliteal artery occlusive disease Postoperative Diagnosis: Same Procedure(s) Performed: Left external iliac artery endarterectomy with patch angioplasty Left femoral artery endarterectomy with patch angioplasty Left popliteal artery endarterectomy with patch angioplasty Left femoral-popliteal artery bypass with inSitu greater saphenous vein graft Anesthesia: DAVID Surgeon: Caden Inman [facility]1: Sameera Isaac Estimated Blood Loss (ml): 100 Pathology: other (femoral and popliteal plaque) Condition: stable Disposition: PACU Indications for Procedure: 63 year old gentleman with critical limb ischemia and left great toe gangrene found to have left femoral, superficial femoral artery occlusion with reconstitution below knee popliteal artery presents to the OR for left femoral- below knee popliteal artery bypass. Operative Findings: Dense calcified plaque at the external iliac, common femoral and popliteal arteries Description of Procedure: After written and informed consent was obtained from the patient all risks benefits and competitions were described the patient is brought to the operative suite and laid in a supine position. The area of the abdomen, left lower extremity was prepped and draped in usual sterile fashion after appropriate anesthetic was performed per the anesthesiologist. A timeout was performed in normal fashion. Antibiotics were administered prior to incision. A oblique incision was created at the left groin and dissection was carried down to the common femoral artery. The common femoral, superficial femoral and profundus femoris arteries were dissected free in a circumferential manner and controlled with vessel loops. Attention was then placed to the greater saphenous vein which was dissected free up to the saphenofemoral junction. A vessel loop was then placed around this area. Attention was then placed distally and a transverse incision was created on the medial aspect of the lower leg just below the knee with a 15 blade scalpel. Dissection was then carried down with electrocautery through the fascia to the popliteal artery. Popliteal artery, tibioperoneal trunk was then dissected free in a circumferential manner and controlled with vessel loops. The anterior tibial artery was also dissected free and visualized. Once controlled attention was then placed to dissection of the greater saphenous vein. Meticulous dissection was then performed of the greater saphenous vein and controlled with a blue vessel loop. Patient was then administered heparin. There was dense calcified plaque noted at the common femoral artery as well as the popliteal artery and decision was made for endarterectomy and patch angioplasty be performed. Arteriotomy was then created with 11 blade scalpel and extended with Flowers scissors to the external iliac artery and towards the superficial femoral artery. Large amount of dense plaque was encountered and endarterectomy was then performed with an endarterectomy Siren. Plaque was then removed from the external iliac artery with large pulsatile blood flow encountered after endarterectomy was completed. All free debris was removed and the area was irrigated. Patch angioplasty was then performed with 6-0 Prolene suture in a running fashion and bovine pericardial patch. Once completed control was released revealing good pulsatile blood flow within the patch. The proximal greater saphenous vein was then resected and suture ligated at the saphenofemoral junction. The vein was then brought over to the femoral artery and the artery was clamped both proximally and distally. Arteriotomy was then created with 11 blade scalpel within the bovine pericardial patch and extended with Pott Ochoa scissors. End-to-side anastomosis was then created with 6-0 Prolene suture in a running fashion after the vein was dilated with serial dilation. Good backbleeding was noted from the vein and good brisk forward bleeding was noted from the artery. Final sutures were then placed good pulsatile blood flow was noted within the vein bypass. The vein was then ligated distally and utilizing a valvulotome the valves were destroyed up to the proximal aspect at the previous anastomosis until there was good pulsatile bleeding noted through the bypass. The tibial peroneal trunk was then controlled and arteriotomy was created with 11 blade scalpel and extended with Pott Ochoa scissors. Dense plaque was then encountered once again and endarterectomy was performed with endarterectomy Siren. There was good backbleeding noted. Patch angioplasty was then performed with bovine pericardial patch and 6-0 Prolene suture in a running fashion. The vein was then spatulated and an end-to-side anastomosis was created with 6-0 Prolene suture in a running fashion. Prior to last sutures being placed backbleeding was once again assessed which was adequate and proximal control was released revealing good pulsatile blood flow. Final sutures were placed and good pulsatile blood flow was noted within the bypass. Doppler signals were then noted distal to the bypass and were biphasic. Utilizing ultrasound the vein was visualized and 2 large branches were noted and therefore incision was created over the line of the branches and dissection was carried down to them and they were suture-ligated in normal fashion. The incisions were then copiously irrigated with antibiotic solution. The incisions were then closed in a m ultilayer fashion after hemostasis was assured with Gelfoam and thrombin and the skin was then cleansed and dressings were placed. The patient tolerated procedure well was sent to PACU for recovery.
[2023-06-06] MEDS: RIVAROXABAN 2.5 MG TABLET PO SCH (22:51)
[2023-06-07] MEDS: HYDROmorphone 1 MG/ML 1 ML SYRINGE IVP PRN (09:22)
[2023-06-07 10:44] LABS: African American GFR (CKD) >90 (>60 ml/min/1.73 sqM); Anion Gap 11 mmol/L; Blood Urea Nitrogen 7 mg/dL (9-20); Calcium 8.2 mg/dL (8.4-10.2); Carbon Dioxide 14 mmol/L (22-30); Chloride 115 mmol/L (98-107); Glucose 101 mg/dL (74-99); Non-African American GFR(CKD) >90 (>60 ml/min/1.73 sqM); Potassium 3.7 mmol/L (3.5-5.1); Sodium 140 mmol/L (137-145)
[2023-06-07 10:45] LABS: Anisocytosis Slight; HCT 31.5 % (39.0-53.0); HGB 8.7 gm/dL (13.0-17.5); Hypochromasia Marked; MCH 35.5 pg (25.0-35.0); MCHC 27.6 g/dL (31.0-37.0); Macrocytosis Marked; Mean Platelet Volume 8.3; Platelet Count 397 k/uL (150-450); RBC 2.44 m/uL (4.30-5.90); RDW 18.5 % (11.5-15.5); WBC 12.5 k/uL (3.8-10.6)
--- NOTE | 2023-06-07 12:56 | P.PN ---
Subjective Progress Note Date: 06/07/23 Principal diagnosis: Peripheral arterial disease, dry gangrene left toe Patient was seen and examined today as a follow-up. He is without any acute changes through the night. Yesterday he underwent left external iliac, femoral, and popliteal artery endarterectomy with patch angioplasty. Left femoral- popliteal artery bypass with in situ greater saphenous vein graft. He states he has some surgical discomfort however overall left lower extremity feels bit better. Isaac catheter was discontinued this morning. He is yet to void. Objective - Vital Signs Vital signs: Vital Signs Temp 97.6 F 06/07/23 07:59 Pulse 67 06/07/23 07:59 Resp 18 06/07/23 07:59 BP 103/61 06/07/23 07:59 Pulse Ox 99 06/07/23 07:59 FiO2 Intake & Output 06/06/23 06/07/23 06/07/23 18:59 06:59 18:59 Intake Total 3377 0 240 Output Total 700 Balance 3377 -700 240 Intake: IV 3277 0 0.9 375 Intake, IV Titration 100 Amount Piperacillin-Tazobactam 3 100 .375 gm In Sodium Chloride 0.9% 100 ml @ 25 mls/hr IVPB Q8H [facility] Rx#: [id number] Oral 240 Output: Urine 600 Estimated Blood Loss 100 Other: Voiding Method Indwelling Catheter # Voids 1 # Bowel Movements 0 - Exam General appearance: The patient is alert, oriented, appears in no acute dist ress. HET: Head is normocephalic and atraumatic. Pupils are equal and reactive. Neck: Supple. Abdomen: Soft, nondistended. Extremities: Bilateral lower extremity pedal edema, warm to the touch, good capillary refill. Left groin with Prevena wound VAC in place with good suction. Left lower extremity dressings clean dry and intact. Positive Doppler signal and monophasic PT signal. Neurological: No focal deficits. Alert and oriented. R - Labs CBC & Chem 7: 06/07/23 09:34 06/07/23 09:34 Labs: Abnormal Lab Results - Last 24 Hours (Table) 06/06/23 06/06/23 Range/Units 09:06 09:06 RBC 2.45 L (4.30-5.90) m/uL Hgb 9.1 L (13.0-17.5) gm/dL Hct 31.4 L (39.0-53.0) % MCV 128.0 H (80.0-100.0) fL MCH 37.0 H (25.0-35.0) pg MCHC 28.9 L (31.0-37.0) g/dL RDW 18.8 H (11.5-15.5) % Macrocytosis Marked A Chloride 114 H (98-107) mmol/L Carbon Dioxide 18 L (22-30) mmol/L BUN 6 L (9-20) mg/dL Creatinine 0.56 L (0.66-1.25) mg/dL Glucose 69 L (74-99) mg/dL Calcium 7.9 L (8.4-10.2) mg/dL Assessment and Plan Assessment: 1. [place] 5 peripheral arterial disease of left lower extremity status post external iliac, femoral and popliteal artery endarterectomy with patch a ngioplasty and left femoral popliteal artery bypass with in situ vein graft 2. Left great toe dry gangrene 3. History of coronary artery disease status post stent 4. History of abdominal aortic aneurysm status post endovascular repair 5. Hyperlipidemia 6. Hypertension Plan: 1. Continue symptomatic and supportive care 2. Consult to physical therapy 3. Encourage ambulation 4. Diet as tolerated 5. Continue Xarelto 2.5 mg twice daily 6. Keep Prevena dressing in place for 6 days 7. Medical management per primary medical team Thank you for this consultation, we will continue to follow. The impression and plan of care has been dictated as directed. Dr. Isaac I performed a history and examination of this patient, discussed the same with the dictator. I agree with the dictator's note ,documented as a scribe. Any additional findings or plans will be noted.
--- NOTE | 2023-06-08 15:09 | P.PN ---
Subjective Progress Note Date: 06/08/23 This is a 63-year-old gentleman with known medical history of peripheral vascular disease, admitted with left great toe gangrene, scheduled for femoral endarterectomy with bypass as per vascular surgery tomorrow. Cardiac clearance noted. Receiving gentle IV fluid hydration, IV antibiotics Zosyn. Afebrile, normal WBC. Hemoglobin 8.6, platelets 367, bicarb 19, BUN 5, creatinine 0.64. Positive left foot pain. Denies chest pain, palpitations or shortness of breath. 06/06/2023 completed echocardiogram and stress test yesterday reporting no ischemic changes. NPO, scheduled for surgery today. Hemoglobin/labs pending. 06/08/2023 status post left external iliac, femoral, and popliteal artery endarterectomy with patch angioplasty,left femoral-popliteal artery bypass with in situ greater saphenous vein graft, postop day #2. Reports left lower extremity sore but improved. Ambulated in the hallway with roller walker for about 30 feet, developed mild increased discomfort and returned to his room. Anticoagulated on Xarelto. Objective - Vital Signs Vital signs: Vital Signs Temp 97.9 F 06/08/23 07:52 Pulse 69 06/08/23 11:01 Resp 17 06/08/23 11:01 BP 103/64 06/08/23 11:01 Pulse Ox 99 06/08/23 11:01 FiO2 Intake & Output 06/07/23 06/08/23 06/08/23 18:59 06:59 18:59 Intake Total 598 658 Output Total 50 Balance 598 -50 658 Intake: Oral 598 658 Output: Urine 50 Other: Voiding Method Toilet Toilet # Voids 1 1 2 # Bowel Movements 1 1 1 - Exam PHYSICAL EXAM: VITAL SIGNS: [As above] GENERAL: Alert and oriented x 3, sitting up in chair, no acute distress. HEENT: Normocephalic. Conjunctivae normal. eyes normal. NECK: Supple, no JVD. CARDIOVASCULAR: S1, S2 regular.No murmur RESPIRATION: Unlabored, equal air entry,essentially clear with bilateral bases diminished. ABDOMEN: Soft, nontender . No guarding. Positive bowel sounds. LEGS: Left lower extremity warm, dressing clean dry and intact,prevana wound VAC present NERVOUS SYSTEM: Cranial N 2-12 grossly normal. No focal deficits. Strength and sensation grossly intact. Skin: Warm and dry, no rash - Labs CBC & Chem 7: 06/07/23 09:34 06/07/23 09:34 Assessment and Plan Assessment: PAD, left great toe dry gangrene, status post external iliac, femoral and popliteal artery endarterectomy with patch angioplasty and left femoral popliteal artery bypass with in situ vein graft History of aortic aneurysm with endovascular repair CAD, history of stent placement Essential hypertension Hyperlipidemia Nicotine dependence History of alcohol abuse Plan: Continue on current medication regimen ,monitoring and symptomatic treatment. Pain management. PT. Discharge planning in progress pending final DC recommendations and clearance per vascular surgery. Maintain IV fluid hydration, Zosyn. Smoking sensation reinforced. The impression and plan of care has been dictated as directed. : I performed a history and examination of this patient, discussed the same with the dictator. I agree with the dictator's note ,documented as a scribe. Any additional findings or plans will be noted.
[2023-06-09 07:56] VITALS: RESP 17; TEMP 97.5
[2023-06-09 10:51] LABS: Anisocytosis Slight; Basophils # (A) 0.1 k/uL (0-0.2); Basophils % (A) 1 %; Eosinophils # (A) 0.1 k/uL (0-0.7); Eosinophils % (A) 1 %; HCT 26.4 % (39.0-53.0); HGB 7.8 gm/dL (13.0-17.5); Hypochromasia Marked; Lymphocytes % (A) 10 %; MCH 36.5 pg (25.0-35.0); MCHC 29.7 g/dL (31.0-37.0); Macrocytosis Marked; Mean Platelet Volume 8.3; Monocytes # (A) 0.5 k/uL (0-1.0); Monocytes % (A) 5 %; Neutrophils # (A) 8.6 k/uL (1.3-7.7); Neutrophils % (A) 82 %; Platelet Count 351 k/uL (150-450); RBC 2.15 m/uL (4.30-5.90); RDW 18.3 % (11.5-15.5); WBC 10.5 k/uL (3.8-10.6)
--- NOTE | 2023-06-09 10:53 | P.PN ---
Subjective Progress Note Date: 06/08/23 Principal diagnosis: Peripheral arterial disease, dry gangrene left toe Patient was seen and examined today as a follow-up. He is without any acute changes. He is postop day #2 for left external iliac, femoral, and popliteal artery endarterectomy with patch angioplasty. Left femoral-popliteal artery bypass with in situ greater saphenous vein graft. He states he has some burgess rgical discomfort however overall left lower extremity feels better and numbness and tingling improved. Patient worked with physical therapy yesterday and was up and ambulating to bathroom and to the chair. Objective - Vital Signs Vital signs: Vital Signs Temp 97.9 F 06/08/23 07:52 Pulse 55 L 06/08/23 08:06 Resp 17 06/08/23 07:52 BP 102/67 06/08/23 07:52 Pulse Ox 97 06/08/23 07:52 FiO2 Intake & Output 06/07/23 06/08/23 06/08/23 18:59 06:59 18:59 Intake Total 598 118 Output Total 50 Balance 598 -50 118 Intake: Oral 598 118 Output: Urine 50 Other: Voiding Method Toilet Toilet # Voids 1 1 # Bowel Movements 1 1 - Exam General appearance: The patient is alert, oriented, appears in no acute distress. HET: Head is normocephalic and atraumatic. Pupils are equal and reactive. Neck: Supple. Abdomen: Soft, nondistended. Extremities: Bilateral lower extremity edema. Warm to the touch, good capillary refill. Left groin with Prevena wound VAC in place with good suction. Left lower extremity dressings clean dry and intact. Positive Doppler signal over graft and DP signal. Neurological: No focal deficits. Alert and oriented. R - Labs CBC & Chem 7: 06/07/23 09:34 06/07/23 09:34 Labs: Abnormal Lab Results - Last 24 Hours (Table) 06/07/23 06/07/23 Range/Units 09:34 09:34 WBC 12.5 H (3.8-10.6) k/uL RBC 2.44 L (4.30-5.90) m/uL Hgb 8.7 L (13.0-17.5) gm/dL Hct 31.5 L (39.0-53.0) % MCV 129.0 H (80.0-100.0) fL MCH 35.5 H (25.0-35.0) pg MCHC 27.6 L (31.0-37.0) g/dL RDW 18.5 H (11.5-15.5) % Macrocytosis Marked A Chloride 115 H (98-107) mmol/L Carbon Dioxide 14 L (22-30) mmol/L BUN 7 L (9-20) mg/dL Creatinine 0.59 L (0.66-1.25) mg/dL Glucose 101 H (74-99) mg/dL Calcium 8.2 L (8.4-10.2) mg/dL Assessment and Plan Assessment: 1. [place] 5 peripheral arterial disease of left lower extremity status post external iliac, femoral and popliteal artery endarterectomy with patch angioplasty and left femoral popliteal artery bypass with in situ vein graft 2. Left great toe dry gangrene 3. History of coronary artery disease status post stent 4. History of abdominal aortic aneurysm status post endovascular repair 5. Hyperlipidemia 6. Hypertension Plan: 1. Continue symptomatic and supportive care 2. Consult to physical therapy 3. Encourage ambulation 4. Diet as tolerated 5. Continue Xarelto 2.5 mg twice daily 6. Keep Prevena dressing in place until 06/11/2023 7. JADA hose to right lower extremity, elevate lower extremities 8. Left great toe to demarcate 9. Medical management per primary medical team Thank you for this consultation, we will continue to follow. The impression and plan of care has been dictated as directed. Dr. Byrnes I performed a history and examination of this patient, discussed the same with the dictator. I agree with the dictator's note ,documented as a scribe. Any additional findings or plans will be noted.
--- NOTE | 2023-06-09 10:55 | P.PN ---
Subjective Progress Note Date: 06/09/23 Principal diagnosis: Peripheral arterial disease, dry gangrene left toe Patient was seen and examined today as a follow-up. He is without any acute changes. He is postop day #3 for left external iliac, femoral, and popliteal artery endarterectomy with patch angioplasty. Left femoral-popliteal artery bypass with in situ greater saphenous vein graft. Surgical pain continues to improve. He reports most of the discomfort in his left groin where the Prevena wound VAC is in place. He has been up and ambulating and working with physical therapy. Currently sitting up in the recliner. Left lower extremity pain improved. Patient remains afebrile. Objective - Vital Signs Vital signs: Vital Signs Temp 97.5 F L 06/09/23 07:48 Pulse 82 06/09/23 07:48 Resp 17 06/09/23 07:48 BP 128/78 06/09/23 07:48 Pulse Ox 100 06/09/23 07:48 FiO2 Intake & Output 06/08/23 06/09/23 06/09/23 18:59 06:59 18:59 Intake Total 1198 180 Balance 1198 180 Intake: Oral 1198 180 Other: Voiding Method Toilet Toilet Toilet # Voids 2 # Bowel Movements 1 - Exam General appearance: The patient is alert, oriented, appears in no acute distress. HET: Head is normocephalic and atraumatic. Pupils are equal and reactive. Neck: Supple. Abdomen: Soft, nondistended. Extremities: Bilateral lower extremity edema. Warm to the touch, good capillary refill. Left groin with Prevena wound VAC in place with good suction. Left low er extremity dressings clean dry and intact. Positive Doppler signal over graft and DP signal. Neurological: No focal deficits. Alert and oriented. R - Labs CBC & Chem 7: 06/07/23 09:34 06/07/23 09:34 Assessment and Plan Assessment: 1. [place] 5 peripheral arterial disease of left lower extremity status post external iliac, femoral and popliteal artery endarterectomy with patch a ngioplasty and left femoral popliteal artery bypass with in situ vein graft 2. Left great toe dry gangrene 3. History of coronary artery disease status post stent 4. History of abdominal aortic aneurysm status post endovascular repair 5. Hyperlipidemia 6. Hypertension Plan: 1. Continue symptomatic and supportive care 2. Consult to physical therapy 3. Encourage ambulation 4. Diet as tolerated 5. Continue Xarelto 2.5 mg twice daily 6. Keep Prevena dressing in place until 06/11/2023 at that may remove and discard 7. JADA hose to right lower extremity, elevate lower extremities 8. Left great toe to demarcate 9. Discharge instructions reviewed with patient. Patient is cleared from vascular surgery for discharge. Follow-up with Dr. Inman in 2 weeks. Thank you for this consultation, we we will sign off at this time. The impression and plan of care has been dictated as directed. Dr. Inman I performed a history and examination of this patient, discussed the same with the dictator. I agree with the dictator's note ,documented as a scribe. Any ad ditional findings or plans will be noted.
[2023-06-09 11:04] LABS: African American GFR (CKD) >90 (>60 ml/min/1.73 sqM); Anion Gap 10 mmol/L; Blood Urea Nitrogen 10 mg/dL (9-20); Calcium 8.3 mg/dL (8.4-10.2); Carbon Dioxide 18 mmol/L (22-30); Chloride 112 mmol/L (98-107); Glucose 92 mg/dL (74-99); Non-African American GFR(CKD) >90 (>60 ml/min/1.73 sqM); Potassium 3.3 mmol/L (3.5-5.1); Sodium 140 mmol/L (137-145)
[2023-06-09 11:12] LABS: MCV 122.8 fL (80.0-100.0)
--- NOTE | 2023-06-09 11:58 | P.DS ---
Providers Date of admission: 05/30/23 20:40 Expected date of discharge: 06/09/23 Attending physician: Elmo Thomas Consults: 05/30/23 20:38 Consult Physician Urgent Consulting Provider: Caden Inman Consult Reason/Comments: Arterial insufficiency, gangrene left toe Do you want consulting provider notified?: Already Contacted Primary care physician: Elmo Thomas Hospital Course: Final Diagnoses: PAD, left great toe dry gangrene , status post external iliac, femoral and popliteal artery endarterectomy with patch angioplasty and left femoral popliteal artery bypass with in situ vein graft. History of aortic aneurysm with endovascular repair CAD, history of stent placement Essential hypertension Hyperlipidemia Nicotine dependence History of alcohol abuse Hospital course:This is a 63-year-old gentleman with known medical history of peripheral vascular disease, admitted with left great toe gangrene, scheduled for femoral endarterectomy with bypass as per vascular surgery tomorrow. Cardiac clearance noted. Receiving gentle IV fluid hydration, IV antibiotics Zosyn. Afebrile, normal WBC. Hemoglobin 8.6, platelets 367, bicarb 19, BUN 5, creatinine 0.64. Positive left foot pain. Denies chest pain, palpitations or shortness of breath. 06/06/2023 completed echocardiogram and stress test yesterday reporting no ischemic changes. NPO, scheduled for surgery today. Hemoglobin/labs pending. 06/08/2023 status post left external iliac, femoral, and popliteal artery endarterectomy with patch angioplasty,left femoral-popliteal artery bypass with in situ greater saphenous vein graft, postop day #2. Reports left lower extremity sore but improved. Ambulated in the hallway with roller walker for about 30 feet, developed mild increased discomfort and returned to his room. Anticoagulated on Xarelto. Significant clinical improvement. Denies chest pain, palpitations or shortness of breath. Pain controlled. Ambulated with PT, tolerated exertion well. Af ebrile. Cleared by vascular surgery for discharge. ( Left great toe to demarcate.) Patient will be discharged home today in a stable condition with guarded prognosis. The impression and plan of care has been dictated as directed. : I performed a history and examination of this patient, discussed the same with the dictator. I agree with the dictator's note ,documented as a scribe. Any ad ditional findings or plans will be noted. Patient Condition at Discharge: Stable Plan - Discharge Summary Discharge Rx Participant: Yes New Discharge Prescriptions: New Aspirin 81 mg PO DAILY tab Losartan [Cozaar] 25 mg PO DAILY #30 tab Folic Acid 1 mg PO DAILY@1200 tab Atorvastatin [Lipitor] 40 mg PO HS #30 tab Multivitamins, Thera [Multivitamin (formulary)] 1 each PO DAILY@1200 tab Sennosides [Senokot] 8.6 mg PO BID tab Pantoprazole Sodium [Protonix] 40 mg PO DAILY #30 tab Rivaroxaban [Xarelto] 2.5 mg PO BID #60 tab Nicotine 21Mg/24Hr Patch [Habitrol] 1 patch TRANSDERM DAILY patch Thiamine [Vitamin B-1] 100 mg PO DAILY tab HYDROcodone/APAP 5-325MG [[place] 5-325] 1 each PO Q6HR PRN #12 tab PRN Reason: Pain Continue Metoprolol Succinate (ER) [Toprol XL] 25 mg PO DAILY PRN PRN Reason: high bp Discontinued Cephalexin [Keflex] 500 mg PO Q12HR Discharge Medication List Metoprolol Succinate (ER) [Toprol XL] 25 mg PO DAILY PRN 05/30/23 [History] Aspirin 81 mg PO DAILY tab 06/09/23 [Rx] Atorvastatin [Lipitor] 40 mg PO HS #30 tab 06/09/23 [Rx] Folic Acid 1 mg PO DAILY@1200 tab 06/09/23 [Rx] HYDROcodone/APAP 5-325MG [[place] 5-325] 1 each PO Q6HR PRN #12 tab 06/09/23 [Rx] Losartan [Cozaar] 25 mg PO DAILY #30 tab 06/09/23 [Rx] Multivitamins, Thera [Multivitamin (formulary)] 1 each PO DAILY@1200 tab 06/09/23 [Rx] Nicotine 21Mg/24Hr Patch [Habitrol] 1 patch TRANSDERM DAILY patch 06/09/23 [Rx] Pantoprazole Sodium [Protonix] 40 mg PO DAILY #30 tab 06/09/23 [Rx] Rivaroxaban [Xarelto] 2.5 mg PO BID #60 tab 06/09/23 [Rx] Sennosides [Senokot] 8.6 mg PO BID tab 06/09/23 [Rx] Thiamine [Vitamin B-1] 100 mg PO DAILY tab 06/09/23 [Rx] Follow up Appointment(s)/Referral(s): Elmo Thomas DO [Primary Care Provider] - 06/14/23 10:40 am Caden Inman DO [STAFF PHYSICIAN] - 2 Weeks (Office is closed, please call on Monday to schedule hospital follow up apt. ) Patient Instructions/Handouts: Gangrene (DC), Femoropopliteal Bypass (GEN) Activity/Diet/Wound Care/Special Instructions: No driving till cleared by surgeon Avoid heavy lifting greater than 10 lbs , pushing, pulling, straining, flights of stairs until cleared by surgeon. ok to shower tomorrow but no baths, pools, soaking in tubs until cleared by surgeon to avoid risk of infection. signs of infection ie: fever, rash, drainage from incision site, swelling contact doctor or return to ER immediately. Heavy bleeding from incision site apply firm direct pressure and return to ER. Do not attempt to drive self. low sodium/low fat diet Keep left groin Prevena wound vac in place until 06/11/23 then may remove and throw away No alcohol , no smoking
[2023-06-09 12:13] VITALS: BP 122/73; PULSE 76
== END 2023-06-09 12:47 | disposition home health service (06) | DRG 272 ==
LOC: EC 14:12 → 4SSUR 20:40 → 3SCARD 06-01 08:12
PROVIDERS: ADMIT Family Medicine; ATTEND Family Medicine
PROC: B41D1ZZ Fluoroscopy of Aorta and Bilateral Lower Extremity Arteries using Low Osmolar Contrast (ICD-10-PCS; 2023-06-01 07:30)
PROC: 05HC33Z Insertion of Infusion Device into Left Basilic Vein, Percutaneous Approach (ICD-10-PCS; 2023-06-05)
PROC: 04CJ0ZZ Extirpation of Matter from Left External Iliac Artery, Open Approach (ICD-10-PCS; principal; 2023-06-06 07:30)
PROC: 04U Lower Arteries, Supplement (ICD-10-PCS; principal; 2023-06-06 07:30)
PROC: 04CN0ZZ Extirpation of Matter from Left Popliteal Artery, Open Approach (ICD-10-PCS; principal; 2023-06-06 07:30)
PROC: 04CL0ZZ Extirpation of Matter from Left Femoral Artery, Open Approach (ICD-10-PCS; principal; 2023-06-06 07:30)
PROC: 04UL0JZ Supplement Left Femoral Artery with Synthetic Substitute, Open Approach (ICD-10-PCS; principal; 2023-06-06 07:30)
PROC: 041L0JL Bypass Left Femoral Artery to Popliteal Artery with Synthetic Substitute, Open Approach (ICD-10-PCS; principal; 2023-06-06 07:30)
DX: I70.262 Atherosclerosis of native arteries of extremities with gangrene, left leg (principal); I49.1 Atrial premature depolarization; I25.10 Atherosclerotic heart disease of native coronary artery without angina pectoris; E78.5 Hyperlipidemia, unspecified; Z86.79 Personal history of other diseases of the circulatory system; F17.200 Nicotine dependence, unspecified, uncomplicated; F10.11 Alcohol abuse, in remission; F41.9 Anxiety disorder, unspecified; M10.9 Gout, unspecified; I11.9 Hypertensive heart disease without heart failure; I25.2 Old myocardial infarction; K21.9 Gastro-esophageal reflux disease without esophagitis; K59.00 Constipation, unspecified; Z79.82 Long term (current) use of aspirin; Z79.01 Long term (current) use of anticoagulants; Z82.49 Family history of ischemic heart disease and other diseases of the circulatory system; Z91.148 Patient's other noncompliance with medication regimen for other reason; Z95.5 Presence of coronary angioplasty implant and graft; Z79.899 Other long term (current) drug therapy
CPT/HCPCS: 36200; 36410; 36415; 75630; 75716; 76937; 78452; 80048; 80053; 83605; 83735; 85025; 85027; 85610; 85730; 86850; 86900; 86901; 87040; 88304; 88311; 93017; 93306; 96365; 96366; 96375; 99285

== ENCOUNTER 2023-06-18 12:47 | Inpatient (IN) | payer OTHER ==
--- NOTE | 2023-06-18 13:04 | ED ---
General Adult HPI - General Stated complaint: post op comp Time Seen by Provider: 06/18/23 12:50 Source: patient, RN notes reviewed, old records reviewed Limitations: no limitations - History of Present Illness Initial comments: 63-year-old male with peripheral vascular disease with recent bypass presenting for evaluation of drainage from incisional site and gangrene to the left great toe. Patient states that the gangrene has been present since prior to his surgery. He denies fever. He does report leg swelling which is worse in his left leg. He denies previous history of CHF. He denies chest pain or dyspnea. - Related Data Home Medications Medication Instructions Recorded Confirmed Metoprolol Succinate (ER) [Toprol 25 mg PO DAILY PRN 05/30/23 05/30/23 XL] Previous Rx's Medication Instructions Recorded Aspirin 81 mg PO DAILY tab 06/09/23 Atorvastatin [Lipitor] 40 mg PO HS #30 tab 06/09/23 Folic Acid 1 mg PO DAILY@1200 tab 06/09/23 HYDROcodone/APAP 5-325MG [[place] 1 each PO Q6HR PRN #12 tab 06/09/23 5-325] Losartan [Cozaar] 25 mg PO DAILY #30 tab 06/09/23 Multivitamins, Thera [Multivitamin 1 each PO DAILY@1200 tab 06/09/23 (formulary)] Nicotine 21Mg/24Hr Patch [Habitrol] 1 patch TRANSDERM DAILY patch 06/09/23 Pantoprazole Sodium [Protonix] 40 mg PO DAILY #30 tab 06/09/23 Rivaroxaban [Xarelto] 2.5 mg PO BID #60 tab 06/09/23 Sennosides [Senokot] 8.6 mg PO BID tab 06/09/23 Thiamine [Vitamin B-1] 100 mg PO DAILY tab 06/09/23 Allergies Allergy/AdvReac Type Severity Reaction Status Date / Time No Known Allergies Allergy Verified 05/30/23 21:14 Review of Systems ROS Statement: Those systems with pertinent positive or pertinent negative responses have been documented in the HPI. ROS Other: All systems not noted in ROS Statement are negative. Past Medical History Past Medical History: Coronary Artery Disease (CAD), Chest Pain / Angina, GERD/Reflux, Hyperlipidemia, Hypertension, Myocardial Infarction (OK) Additional Past Medical History / Comment(s): AAA. Hx gout. HX FX LT Ankle 05/2017. POSS HERNIA IN ABD. Last Myocardial Infarction Date:: 2010 History of Any Multi-Drug Resistant Organisms: None Reported Past Surgical History: Heart Catheterization With Stent, Orthopedic Surgery Additional Past Surgical History / Comment(s): LT WRIST SX, UNSURE IF ANY METAL PLACED. Lt.ankle surgery, 11 screws. Stent x1. EXPLORATORY LAPAROTOMY 01/19/18, UNABLE TO REPAIR AAA. Stent to Abdominal Aortic Aneurysm 2022. Past Anesthesia/Blood Transfusion Reactions: Previous Problems w/ Anesthesia Additional Past Anesthesia/Blood Transfusion Reaction / Comment(s): "Takes a lot to put him out." Date of Last Stent Placement:: 2010 Past Psychological History: Anxiety Additional Psychological History / Comment(s): . Smoking Status: Current every day smoker Past Alcohol Use History: Daily Past Drug Use History: Marijuana Additional Drug Use History / Comment(s): Uses marijuana daily, half a joint. Instructed to hold 24 hrs prior to procedure - Past Family History Father Family Medical History: Cancer Additional Family Medical History / Comment(s): AGE 72 [place] CA W/ METS Mother Family Medical History: Hypertension General Exam General appearance: alert, in no apparent distress Head exam: Present: atraumatic, normocephalic Eye exam: Present: normal appearance, PERRL Respiratory exam: Present: normal lung sounds bilaterally. Absent: respiratory distress, wheezes Cardiovascular Exam: Present: regular rate, normal rhythm GI/Abdominal exam: Present: soft. Absent: distended Extremities exam: Present: other (Bilateral pedal edema, worsening edema in the left leg, incision has very mild erythema surrounding it in the mid calf. The left great toe is gangrenous this appears dry.) Neurological exam: Present: alert, oriented X3, CN II-XII intact. Absent: motor sensory deficit Psychiatric exam: Present: normal affect, normal mood Course Vital Signs 06/18/23 06/18/23 06/18/23 12:54 13:02 13:34 Temperature 98.4 F Pulse Rate 83 75 Respiratory 20 16 20 Rate Blood Pressure 138/74 134/74 O2 Sat by Pulse 98 98 Oximetry 06/18/23 15:08 Temperature Pulse Rate 81 Respiratory 18 Rate Blood Pressure 131/84 O2 Sat by Pulse 96 Oximetry Medical Decision Making - Medical Decision Making Was pt. sent in by a medical professional or institution (, PA, MATE FISHING VESSEL, urgent ca re, hospital, or residential...) When possible be specific @ -No Did you speak to anyone other than the patient for history (EMS, parent, family, police, friend...)? What history was obtained from this source @ -No Did you review nursing and triage notes (agree or disagree)? Why? @ -I reviewed and agree with nursing and triage notes Were old charts reviewed (outside hosp., previous admission, EMS record, old EKG, old radiological studies, urgent care reports/EKG's, residential records)? Report findings @ -No old charts were reviewed Differential Diagnosis @ -[Congestive heart failure, DVT, postop infection EKG interpreted by me (3pts min.). @ -Narrow complex rhythm rate of 87, sinus versus atrial fibrillation QRS duration 107, QTc [address] segment elevation. X-rays interpreted by me (1pt min.). @Chest x-ray negative for acute cardiopulmonary disease. CT interpreted by me (1pt min.). @ -None done U/S interpreted by me (1pt. min.). @ -None done What testing was considered but not performed or refused? (CT, X-rays, U/S, labs)? Why? @ -None What meds were considered but not given or refused? Why? @ -None Did you discuss the management of the patient with other professionals (professionals i.e. , PA, MATE FISHING VESSEL, lab, RT, psych nurse, social science manager, design leader, teacher, physics technical officer, dependency case manager)? Give summary @Is discussed with Dr. Saleem and Dr. [place]. Was smoking cessation discussed for >3mins.? @ -No Was critical care preformed (if so, how long)? @ -No Were there social determinants of health that impacted care today? How? (Homelessness, low income, unemployed, alcoholism, drug addiction, transportation, low edu. Level, literacy, decrease access to med. care, group home, rehab)? @ -No Was there de-escalation of care discussed even if they declined (Discuss DNR or withdrawal of care, Hospice)? DNR status @ -No What co-morbidities impacted this encounter? (DM, HTN, Smoking, COPD, CAD, Cancer, CVA, ARF, Chemo, Hep., AIDS, mental health diagnosis, sleep apnea, morbid obesity)? @ -None Was patient admitted / discharged? Hospital course, mention meds given and route, prescriptions, significant lab abnormalities, going to OR and other pertinent info. @ -[Patient will be admitted for IV diuresis and IV antibiotics. At this point I suspect this is predominantly peripheral edema causing the drainage but will cover with antibiotics given the elevated white blood cell count. Undiagnosed new problem with uncertain prognosis? @ -No Drug Therapy requiring intensive monitoring for toxicity (Heparin, Nitro, Insulin, Cardizem)? @ -No Were any procedures done? @ -No Diagnosis/symptom? @ -[Peripheral edema, leukocytosis Acute, or Chronic, or Acute on Chronic? @ -Acute Uncomplicated (without systemic symptoms) or Complicated (systemic symptoms)? @ -Default Side effects of treatment? @ -No Exacerbation, Progression, or Severe Exacerbation? @ -No Poses a threat to life or bodily function? How? (Chest pain, [place], [place], pneumonia, PE, COPD, DKA, ARF, appy, cholecystitis, CVA, Diverticulitis, Homicidal, Suicidal, threat to staff... and all critical care pts) @Low risk at this time - Lab Data Result diagrams: 06/18/23 13:02 06/18/23 13:02 Lab Results 06/18/23 06/18/23 06/18/23 Range/Units 13:02 13:02 13:02 WBC 16.4 H (3.8-10.6) k/uL RBC 2.76 L (4.30-5.90) m/uL Hgb 9.4 L D (13.0-17.5) gm/dL Hct 31.0 L (39.0-53.0) % MCV 112.5 H D (80.0-100.0) fL MCH 34.1 (25.0-35.0) pg MCHC 30.3 L (31.0-37.0) g/dL RDW 17.5 H (11.5-15.5) % Plt Count 400 (150-450) k/uL MPV 8.1 Neutrophils % 88 % Lymphocytes % 6 % Monocytes % 4 % Eosinophils % 1 % Basophils % 0 % Neutrophils # 14.5 H (1.3-7.7) k/uL Lymphocytes # 0.9 L (1.0-4.8) k/uL Monocytes # 0.7 (0-1.0) k/uL Eosinophils # 0.2 (0-0.7) k/uL Basophils # 0.0 (0-0.2) k/uL Manual Slide Review Performed Hypochromasia Marked Hypochromasia (manual) Present Anisocytosis Slight Anisocytosis (manual) Present Macrocytosis Marked A PT 12.9 H (10.0-12.5) sec INR 1.2 H (<1.2) APTT 26.1 (22.0-30.0) sec Sodium 138 (137-145) mmol/L Potassium 4.0 (3.5-5.1) mmol/L Chloride 107 (98-107) mmol/L Carbon Dioxide 26 (22-30) mmol/L Anion Gap 5 mmol/L BUN 9 (9-20) mg/dL Creatinine 0.65 L (0.66-1.25) mg/dL Est GFR (CKD-EPI)AfAm >90 (>60 ml/min/1.73 sqM) Est GFR (CKD-EPI)NonAf >90 (>60 ml/min/1.73 sqM) Glucose 99 (74-99) mg/dL Plasma Lactic Acid Ricco (0.7-2.0) mmol/L Calcium 8.6 (8.4-10.2) mg/dL Magnesium 1.7 (1.6-2.3) mg/dL Total Bilirubin 1.0 (0.2-1.3) mg/dL AST 40 (17-59) U/L ALT 13 (4-49) U/L Alkaline Phosphatase 291 H (38-126) U/L NT-Pro-B Natriuret Pep 2670 pg/mL Total Protein 6.2 L (6.3-8.2) g/dL Albumin 3.1 L (3.5-5.0) g/dL 06/18/23 Range/Units 13:13 WBC (3.8-10.6) k/uL RBC (4.30-5.90) m/uL Hgb (13.0-17.5) gm/dL Hct (39.0-53.0) % MCV (80.0-100.0) fL MCH (25.0-35.0) pg MCHC (31.0-37.0) g/dL RDW (11.5-15.5) % Plt Count (150-450) k/uL MPV Neutrophils % % Lymphocytes % % Monocytes % % Eosinophils % % Basophils % % Neutrophils # (1.3-7.7) k/uL Lymphocytes # (1.0-4.8) k/uL Monocytes # (0-1.0) k/uL Eosinophils # (0-0.7) k/uL Basophils # (0-0.2) k/uL Manual Slide Review Hypochromasia Hypochromasia (manual) Anisocytosis Anisocytosis (manual) Macrocytosis PT (10.0-12.5) sec INR (<1.2) APTT (22.0-30.0) sec Sodium (137-145) mmol/L Potassium (3.5-5.1) mmol/L Chloride (98-107) mmol/L Carbon Dioxide (22-30) mmol/L Anion Gap mmol/L BUN (9-20) mg/dL Creatinine (0.66-1.25) mg/dL Est GFR (CKD-EPI)AfAm (>60 ml/min/1.73 sqM) Est GFR (CKD-EPI)NonAf (>60 ml/min/1.73 sqM) Glucose (74-99) mg/dL Plasma Lactic Acid [place] 1.5 (0.7-2.0) mmol/L Calcium (8.4-10.2) mg/dL Magnesium (1.6-2.3) mg/dL Total Bilirubin (0.2-1.3) mg/dL AST (17-59) U/L ALT (4-49) U/L Alkaline Phosphatase (38-126) U/L NT-Pro-B Natriuret Pep pg/mL Total Protein (6.3-8.2) g/dL Albumin (3.5-5.0) g/dL Disposition Clinical Impression: Gangrene of toe of left foot, Fluid overload, Peripheral edema Disposition: ADMITTED IP TO THIS [facility] Condition: Stable Is patient prescribed a controlled substance at d/c from ED?: No Referrals: Elmo Thomas DO [Primary Care Provider] - 1-2 days Time of Disposition: 16:17
[2023-06-18 13:49] LABS: Anisocytosis Slight; Basophils % (A) 0 %; Eosinophils # (A) 0.2 k/uL (0-0.7); Eosinophils % (A) 1 %; Hypochromasia Marked; Lymphocytes # (A) 0.9 k/uL (1.0-4.8); Lymphocytes % (A) 6 %; MCH 34.1 pg (25.0-35.0); MCHC 30.3 g/dL (31.0-37.0); Macrocytosis Marked; Mean Platelet Volume 8.1; Monocytes # (A) 0.7 k/uL (0-1.0); Monocytes % (A) 4 %; Neutrophils # (A) 14.5 k/uL (1.3-7.7); Neutrophils % (A) 88 %; Platelet Count 400 k/uL (150-450); RBC 2.76 m/uL (4.30-5.90); RDW 17.5 % (11.5-15.5); WBC 16.4 k/uL (3.8-10.6)
[2023-06-18 13:53] LABS: ALT 13 U/L (4-49); AST 40 U/L (17-59); African American GFR (CKD) >90 (>60 ml/min/1.73 sqM); Albumin 3.1 g/dL (3.5-5.0); Alkaline Phosphatase 291 U/L (38-126); Anion Gap 5 mmol/L; Blood Urea Nitrogen 9 mg/dL (9-20); Calcium 8.6 mg/dL (8.4-10.2); Carbon Dioxide 26 mmol/L (22-30); Chloride 107 mmol/L (98-107); Glucose 99 mg/dL (74-99); INR 1.2 (<1.2); Magnesium 1.7 mg/dL (1.6-2.3); Non-African American GFR(CKD) >90 (>60 ml/min/1.73 sqM); Partial Thromboplastin Time 26.1 sec (22.0-30.0); Prothrombin Time 12.9 sec (10.0-12.5); Sodium 138 mmol/L (137-145); Total Protein 6.2 g/dL (6.3-8.2)
[2023-06-18 14:02] LABS: NT-Pro-B-Type Natriuretic Pept 2670 pg/mL
--- NOTE | 2023-06-18 14:06 | XR ---
EXAMINATION TYPE: XR chest 2V DATE OF EXAM: 06/18/2023 1:45 PM CLINICAL INDICATION:Male, 63 years old with history of difficulty breathing; [facility] COMPARISON: None. TECHNIQUE: XR chest 2V Frontal and lateral views of the chest. FINDINGS: Lungs/Pleura: Subsegmental atelectasis is present in the lung bases. No evidence of pleural effusion or pneumothorax. Pulmonary vascularity: Unremarkable. Heart/mediastinum: Cardiomediastinal silhouette is unremarkable. Musculoskeletal: No acute osseous pathology. IMPRESSION: No acute cardiopulmonary disease/process.
--- NOTE | 2023-06-18 14:27 | US ---
EXAMINATION TYPE: US venous doppler duplex LE LT DATE OF EXAM: 06/18/2023 2:15 PM COMPARISON: NONE CLINICAL INDICATION: Male, 63 years old with history of swelling; Patient had fem/pop bypass graft burgess rgery 1 week ago, swollen, painful, red, leaking fluids, appears infected, no h/o dvt SIDE PERFORMED: Left TECHNIQUE: The lower extremity deep venous system is examined utilizing real time linear array sonog jenise with graded compression, doppler sonography and color-flow sonography. VESSELS IMAGED: Common Femoral Vein Deep Femoral Vein Greater Saphenous Vein * Femoral Vein Popliteal Vein Small Saphenous Vein * Proximal Calf Veins (* superficial vessels) Left Leg: Extremely limited exam. Extensive edema will not let US penetrate vessels this upper thigh . Was able to detect blood flow within distal femoral, popiteal vessels and PTV's. No blood noted not ed in those areas. Graft appears patent. IMPRESSION: 1. Patent graft. 2. No evidence of deep venous thrombosis. 3. Extensive superficial soft tissue edema.
[2023-06-18 15:00] LABS: Anisocytosis (M) Present; Hypochromasia (M) Present
[2023-06-18] MEDS ORDERED: VANCOMYCIN IV PER PHARMACY 1 EACH MISC MISCELLANE PRN (15:11)
[2023-06-18] MEDS ORDERED: NALOXONE 0.4 MG/ML 1 ML VIAL IV PRN (16:17)
[2023-06-18] MEDS: FUROSEMIDE 10 MG/ML 4 ML VIAL IV STA (16:25)
[2023-06-18] MEDS: VANCOMYCIN 1,500 MG in SODIUM CHLORIDE 0.9% 500 ML 500 ML IVPB ONE (17:25)
[2023-06-18] MEDS: ACETAMINOPHEN TAB 325 MG TAB PO PRN (23:20)
--- NOTE | 2023-06-19 00:22 | P.HPIM ---
History of Present Illness H&P Date: 06/18/23 Chief Complaint: Leg swelling Patient is a 63-year-old male with a past medical history of coronary artery status post and placement, hypertension, hyperlipidemia, history of [place], abdominal aortic aneurysm, GERD, anxiety and currently everyday smoker and daily alcohol use and marijuana use presents to ER with complaints of worsening bilateral leg swelling left greater than right. Patient is also having redness of the left lower extremity with serous drainage from the incision site and also dark discoloration of the left great toe. Gangrenous discoloration of the left great toe is present since prior to his recent surgery. Denied fever or chills. No cough or sputum production. No nausea or vomiting. Echocardiogram on 06/01/2023 showed ejection fraction 55 to 60%. Mild concentric LVH, mild left atrial dilatation, mild MR and normal RV and RV size. No significant valvular dysfunction. Chest x-ray showed no acute cardiopulmonary process. Venous duplex was ordered EKG showed atrial fibrillation Laboratory data showed WBC 16.4 hemoglobin 9.4 and MCV 112.5 RDW 17.5 Sodium 138 potassium 4.0 chloride 107 bicarb is 26 BUN 9 and creatinine 0.65, magnesium 1.7 and alk phos 291 and proBNP 2670 Review of Systems Constitutional: Patient denies any fever or chills . No generalized weakness or weight loss. Abdomen: Patient denied nausea vomiting and diarrhea and abdominal pain. Cardiovascular: Patient denies any chest pain or short of breath no palpitations. Bilateral leg swelling and left leg redness and discharge. Respiratory: patient denied any cough is from production. No shortness of breath Neurologic: Patient denied any numbness or tingling headache. Musculoskeletal: Patient denies any complaints of joint swelling or deformity. Skin: Negative Psychiatric: Negative Endocrine: No heat or cold intolerance. No recent weight gain. Genitourinary: No dysuria or hematuria. All other 14 point ROS negative except the above Past Medical History Past Medical History: Coronary Artery Disease (CAD), Chest Pain / Angina, GERD/Reflux, Hyperlipidemia, Hypertension, Myocardial Infarction ([place]) Additional Past Medical History / Comment(s): AAA. Hx gout. HX FX LT Ankle 05/2017. POSS HERNIA IN ABD. Last Myocardial Infarction Date:: 2010 History of Any Multi-Drug Resistant Organisms: None Reported Past Surgical History: Heart Catheterization With Stent, Orthopedic Surgery Additional Past Surgical History / Comment(s): LT WRIST SX, UNSURE IF ANY METAL PLACED. Lt.ankle surgery, 11 screws. Stent x1. EXPLORATORY LAPAROTOMY 01/19/18, UNABLE TO REPAIR AAA. Stent to Abdominal Aortic Aneurysm 2022. Past Anesthesia/Blood Transfusion Reactions: Previous Problems w/ Anesthesia Additional Past Anesthesia/Blood Transfusion Reaction / Comment(s): "Takes a lot to put him out." Date of Last Stent Placement:: 2010 Past Psychological History: Anxiety Additional Psychological History / Comment(s): . Smoking Status: Current every day smoker Past Alcohol Use History: Daily Past Drug Use History: Marijuana Additional Drug Use History / Comment(s): Uses marijuana daily, half a joint. Instructed to hold 24 hrs prior to procedure - Past Family History Father Family Medical History: Cancer Additional Family Medical History / Comment(s): AGE 72 [place] W/ METS Mother Family Medical History: Hypertension Medications and Allergies Home Medications Medication Instructions Recorded Confirmed Type Metoprolol Succinate (ER) [Toprol 25 mg PO DAILY PRN 05/30/23 06/18/23 History XL] Atorvastatin [Lipitor] 40 mg PO HS #30 tab 06/09/23 06/18/23 Rx Losartan [Cozaar] 25 mg PO DAILY #30 tab 06/09/23 06/18/23 Rx Pantoprazole Sodium [Protonix] 40 mg PO DAILY #30 tab 06/09/23 06/18/23 Rx Allergies Allergy/AdvReac Type Severity Reaction Status Date / Time No Known Allergies Allergy Verified 06/18/23 16:26 Physical Exam Vitals: Vital Signs Temp Pulse Resp BP Pulse Ox 06/18/23 19:35 98.6 F 73 17 133/88 94 L 06/18/23 17:45 92 18 133/76 06/18/23 17:29 78 18 123/85 96 06/18/23 15:08 81 18 131/84 96 06/18/23 13:34 20 06/18/23 13:02 75 16 134/74 98 06/18/23 12:54 98.4 F 83 20 138/74 98 Intake and Output 06/18/23 06/18/23 06/18/23 06:59 14:59 22:59 Other: Weight 83.915 kg PHYSICAL EXAMINATION: Patient is lying in the bed comfortably, no acute distress, awake alert and ar ented.. HEENT: Normocephalic. Neck is supple. Pupils reactive. Nostrils clear. Oral cavity is moist. Neck reveals no JVD, carotid bruits, or thyromegaly. CHEST EXAMINATION: Trachea is central. Symmetrical expansion. Lung andrea clear to auscultation and percussion. CARDIAC: Normal S1, S2 with no gallops. No murmurs ABDOMEN: Soft. Bowel sounds normal. No organomegaly. No abdominal bruits. Extremities: Bilateral lower extremity 3+ edema left greater than right with left lower extremity redness and purulent base at the surgical site, serous discharge, mild tenderness.. Dark discoloration of the left great toe/Band-Aid Neurologically awake, alert, oriented x3 with well-coordinated movements. No focal deficits noted Skin: No rash or skin lesions except above. Psychiatric: Coperative. Nonsuicidal Musculoskeletal: No joint swelling or deformity. Normal range of motion. Results CBC & Chem 7: 06/18/23 13:02 06/18/23 13:02 Labs: Abnormal Lab Results - Last 24 Hours (Table) 06/18/23 06/18/23 06/18/23 Range/Units 13:02 13:02 13:02 WBC 16.4 H (3.8-10.6) k/uL RBC 2.76 L (4.30-5.90) m/uL Hgb 9.4 L D (13.0-17.5) gm/dL Hct 31.0 L (39.0-53.0) % MCV 112.5 H D (80.0-100.0) fL MCHC 30.3 L (31.0-37.0) g/dL RDW 17.5 H (11.5-15.5) % Neutrophils # 14.5 H (1.3-7.7) k/uL Lymphocytes # 0.9 L (1.0-4.8) k/uL Macrocytosis Marked A PT 12.9 H (10.0-12.5) sec INR 1.2 H (<1.2) Creatinine 0.65 L (0.66-1.25) mg/dL Alkaline Phosphatase 291 H (38-126) U/L Total Protein 6.2 L (6.3-8.2) g/dL Albumin 3.1 L (3.5-5.0) g/dL Thrombosis Risk Factor Assmnt - DVT/VTE Prophylaxis DVT/VTE Prophylaxis: Pharmacologic Prophylaxis ordered Assessment and Plan Assessment: Left lower extremity cellulitis and significant swelling with serous drainage Atrial fibrillation possible new onset Peripheral vascular disease with left great toe gangrene. Status post left lower extremity from past bypass on 06/06/2023 Macrocytic anemia with hemoglobin 9.4 Coronary disease with history of stent placement to circumflex in 2010 History of endovascular aortic repair in 2019 Hypertension Hyperlipidemia Anxiety Daily alcohol use Ongoing nicotine addiction Medication noncompliance history Plan: Patient will be continued on antibiotics vancomycin as per pharmacy dosing. Was also given ceftriaxone in the ER. Continue with IV Lasix 20 mg twice daily due to bilateral leg swelling and lower extremity duplex scan was ordered. With aspirin and statins and metoprolol and. Will add lisinopril as blood pressure tolerates. Continue with statins. B12 folate and iron profile ordered. Follow-up repeat CBC and BMP Vascular surgery is on board. Cardiology consulted for possible new onset A-fib rate controlled.. Continue to follow closely. Time with Patient: Greater than 30
[2023-06-19] MEDS: MAGNESIUM SULFATE-D5W PMX 1 GM in DEXTROSE/WATER 1 100ML.BAG IVPB ONE (01:03)
[2023-06-19] MEDS: VANCOMYCIN 1,500 MG in SODIUM CHLORIDE 0.9% 500 ML 500 ML IVPB SCH (02:13)
[2023-06-19] MEDS: FUROSEMIDE 10 MG/ML 4 ML VIAL IV SCH (05:18)
[2023-06-19 08:38] LABS: Basophils # (A) 0.07 X 10*3/uL (0.00-0.10); Basophils % (A) 0.5 %; Eosinophils # (A) 0.21 X 10*3/uL (0.04-0.35); Eosinophils % (A) 1.5 %; HGB 7.8 g/dL (13.0-17.0); Lymphocytes # (A) 1.01 X 10*3/uL (0.90-5.00); Lymphocytes % (A) 7.2 %; MCH 33.8 pg (27.0-32.0); MCV 112.6 FL (80.0-97.0); Mean Platelet Volume 10.7 FL (9.5-12.2); Monocytes # (A) 1.16 X 10*3/uL (0.20-1.00); Monocytes % (A) 8.3 %; NRBC Per 100 WBC 0 X 10*3/uL (0.00-0.01); Neutrophils # (A) 11.42 X 10*3/uL (1.80-7.70); Neutrophils % (A) 81.9 %; Platelet Count 289 X 10*3/uL (140-440); RBC 2.31 X 10*6/uL (4.40-5.60); RDW 17.2 % (11.5-14.5); WBC 13.96 X 10*3/uL (4.50-10.00)
[2023-06-19] MEDS: ASPIRIN 81 MG PO SCH (09:44)
[2023-06-19] MEDS: METOPROLOL SUCCINATE (ER) 25 MG TAB.ER.24H PO SCH (09:44)
[2023-06-19] MEDS: PANTOPRAZOLE 40 MG TABLET PO SCH (09:44)
[2023-06-19] MEDS ORDERED: HEPARIN SODIUM 1,000 UN/ML (10ML VL) IV PRN (09:44)
[2023-06-19 10:51] LABS: Anisocytosis Slight; Basophils # (A) 0.1 k/uL (0-0.2); Basophils % (A) 0 %; Eosinophils # (A) 0.2 k/uL (0-0.7); Eosinophils % (A) 1 %; HCT 28.4 % (39.0-53.0); HGB 8.9 gm/dL (13.0-17.5); Hypochromasia Marked; Lymphocytes % (A) 7 %; MCH 35.5 pg (25.0-35.0); MCHC 31.4 g/dL (31.0-37.0); MCV 113.1 fL (80.0-100.0); Mean Platelet Volume 9.4; Monocytes # (A) 0.6 k/uL (0-1.0); Monocytes % (A) 4 %; Neutrophils # (A) 11.5 k/uL (1.3-7.7); Neutrophils % (A) 86 %; Platelet Count 312 k/uL (150-450); RBC 2.51 m/uL (4.30-5.90); RDW 17.2 % (11.5-15.5); WBC 13.4 k/uL (3.8-10.6)
[2023-06-19 11:00] LABS: INR 1.2 (<1.2); Partial Thromboplastin Time 26.5 sec (22.0-30.0); Prothrombin Time 13.1 sec (10.0-12.5)
[2023-06-19 11:02] LABS: Macrocytosis Marked
--- NOTE | 2023-06-19 11:08 | P.CRDCN ---
History of Present Illness Consult date: 06/19/23 Consult reason: atrial fibrillation History of present illness: History of present illness: This is a 63-year-old male patient previously seen by Dr. Yash Randall in the office in 2019 with past medical history of hypertension, hyperlipidemia, peripheral vascular disease. We have been asked to evaluate the patient for new onset atrial fibrillation. Patient was recently hospitalized 05/29 - 06/08 and seen at that time by cardiology regarding clearance for surgery. Patient subsequently underwent left external iliac artery endarterectomy, femoral artery endarterectomy, popliteal artery endarterectomy and femoral-popliteal artery bypass. Patient returned to the hospital due to drainage from the incision site and gangrene to the left great toe. Patient denies having any chest pain or shortness of breath, no palpitations, no lightheadedness or dizziness. EKG atrial fibrillation 87 bpm Chest x-ray: No acute process. Venous Doppler duplex of the left lower extremity revealed patent graft. No evidence of DVT. Extensive superficial soft tissue edema. WBC 13.9, hemoglobin 7.8, platelet count 289. INR 1.2. Electrolytes are normal. BUN 9 creatinine 0.65. Iron 14, TIBC 200, saturation 7, transferrin 1.43. proBNP 2670. Alkaline phosphatase 291 otherwise liver function test are normal. Home cardiac medications: Toprol XL 25 mg daily ordered but not been taken, losartan 25 mg daily, atorvastatin 40 mg daily. Toprol has been resumed as a scheduled medication. Lexiscan stress test performed 06/02/2023 revealed no stress induced ischemic changes. Echocardiogram performed 06/01/2023 reveals EF of 55 to 60%. Mild concentric left ventricular hypertrophy. Mild left atrial dilatation. Mild MR. Review Of Systems: At the time of my exam: CONSTITUTIONAL: Denies fever or chills. HEENT: Denies blurred vision, vision changes, or eye pain. Denies hemoptysis CARDIOVASCULAR: Denies chest pain. Denies orthopnea. Denies PND. Denies palpitations RESPIRATORY: Denies shortness of breath. GASTROINTESTINAL: Denies abdominal pain. Denies nausea or vomiting. HEMATOLOGIC: Denies bleeding disorders. GENITOURINARY: Denies any blood in urine. SKIN: Denies pruitis. Denies rash. Wound left lower extremity, gangrene left great toe. Physical examination: Gen: This is a 63-year-old male in no acute distress VS: reviewed blood pressure 127/77, heart rate 86, pulse ox 99% on room air. HEENT: Head is atraumatic, normocephalic. Pupils equal, round. Sclerae is anicteric. NECK: Supple. No JVD. LUNGS: Clear to auscultation. No wheezes or rhonchi. No intercostal retractions. HEART: Irregular rate and rhythm. No murmur. ABDOMEN: Soft No tenderness. EXTREMITIES: No pedal edema. No calf tenderness. Gangrene changes to the left great toe, dressing in place to the medial calf. NEUROLOGICAL: Patient is awake, alert and oriented x3. Assessment: New onset paroxysmal atrial fibrillation rate controlled Left lower extremity cellulitis serous drainage at surgical site Peripheral vascular disease with gangrene left great toe Recent femoropopliteal arterial bypass done on 06/06/2023 Coronary artery disease with previous stenting of the circumflex in 2010 History of endovascular aortic repair in 2018 Hypertension Hyperlipidemia Daily alcohol intake Tobacco use and dependence Noncompliance with medication regime Plan: Resume patient's home cardiac medications clinical research monitor Continue scheduled beta-carter No need to repeat echocardiogram as this was done last month Start patient on heparin drip No need to transfer patient to 3 S Further recommendations to follow based upon clinical course Thank you kindly for this consultation. Nurse practitioner note has been reviewed, I agree with documented findings and plan of care. Patient was seen and examined. Past Medical History Past Medical History: Coronary Artery Disease (CAD), Chest Pain / Angina, GERD/Reflux, Hyperlipidemia, Hypertension, Myocardial Infarction ([place]) Additional Past Medical History / Comment(s): AAA. Hx gout. HX FX LT Ankle 05/2017. POSS HERNIA IN ABD. Last Myocardial Infarction Date:: 2010 History of Any Multi-Drug Resistant Organisms: None Reported Past Surgical History: Heart Catheterization With Stent, Orthopedic Surgery Additional Past Surgical History / Comment(s): LT WRIST SX, UNSURE IF ANY METAL PLACED. Lt.ankle surgery, 11 screws. Stent x1. EXPLORATORY LAPAROTOMY 01/19/18, UNABLE TO REPAIR AAA. Stent to Abdominal Aortic Aneurysm 2022. Past Anesthesia/Blood Transfusion Reactions: Previous Problems w/ Anesthesia Additional Past Anesthesia/Blood Transfusion Reaction / Comment(s): "Takes a lot to put him out." Date of Last Stent Placement:: 2010 Past Psychological History: Anxiety Additional Psychological History / Comment(s): . Smoking Status: Current every day smoker Past Alcohol Use History: Daily Past Drug Use History: Marijuana Additional Drug Use History / Comment(s): Uses marijuana daily, half a joint. Instructed to hold 24 hrs prior to procedure - Past Family History Father Family Medical History: Cancer Additional Family Medical History / Comment(s): AGE 72 [place] W/ METS Mother Family Medical History: Hypertension Medications and Allergies Home Medications Medication Instructions Recorded Confirmed Type Metoprolol Succinate (ER) [Toprol 25 mg PO DAILY PRN 05/30/23 06/18/23 History XL] Atorvastatin [Lipitor] 40 mg PO HS #30 tab 06/09/23 06/18/23 Rx Losartan [Cozaar] 25 mg PO DAILY #30 tab 06/09/23 06/18/23 Rx Pantoprazole Sodium [Protonix] 40 mg PO DAILY #30 tab 06/09/23 06/18/23 Rx Allergies Allergy/AdvReac Type Severity Reaction Status Date / Time No Known Allergies Allergy Verified 06/18/23 16:26 Physical Exam Vitals: Vital Signs Temp Pulse Pulse Resp BP BP Pulse Ox 06/19/23 01:54 99.1 F 94 20 130/76 93 L 06/18/23 19:50 98.0 F 67 20 143/78 98 06/18/23 19:35 98.6 F 73 17 133/88 94 L 06/18/23 17:45 92 18 133/76 06/18/23 17:29 78 18 123/85 96 06/18/23 15:08 81 18 131/84 96 06/18/23 13:34 20 06/18/23 13:02 75 16 134/74 98 06/18/23 12:54 98.4 F 83 20 138/74 98 Intake and Output 06/18/23 06/19/23 06/19/23 22:59 06:59 14:59 Intake Total 900 Output Total 400 Balance 500 Intake: Oral 900 Output: Urine 400 Other: Voiding Method External Catheter Weight 83.915 kg Results 06/19/23 10:23 06/18/23 13:02 Cardiac Enzymes 06/18/23 Range/Units 13:02 AST 40 (17-59) U/L Coagulation 06/18/23 Range/Units 13:02 PT 12.9 H (10.0-12.5) sec APTT 26.1 (22.0-30.0) sec CBC 06/18/23 Range/Units 13:02 WBC 16.4 H (3.8-10.6) k/uL RBC 2.76 L (4.30-5.90) m/uL Hgb 9.4 L D (13.0-17.5) gm/dL Hct 31.0 L (39.0-53.0) % Plt Count 400 (150-450) k/uL Comprehensive Metabolic Panel 06/18/23 Range/Units 13:02 Sodium 138 (137-145) mmol/L Potassium 4.0 (3.5-5.1) mmol/L Chloride 107 (98-107) mmol/L Carbon Dioxide 26 (22-30) mmol/L BUN 9 (9-20) mg/dL Creatinine 0.65 L (0.66-1.25) mg/dL Glucose 99 (74-99) mg/dL Calcium 8.6 (8.4-10.2) mg/dL AST 40 (17-59) U/L ALT 13 (4-49) U/L Alkaline Phosphatase 291 H (38-126) U/L Total Protein 6.2 L (6.3-8.2) g/dL Albumin 3.1 L (3.5-5.0) g/dL Current Medications Generic Name Dose Route Start Last Admin Trade Name Freq PRN Reason Stop Dose Admin Acetaminophen 650 mg 06/18/23 16:17 06/18/23 23:20 Acetaminophen Tab 325 Mg Tab PO 650 mg Q6HR PRN Administration Mild Pain or Fever > 100.5 Aspirin 81 mg 06/19/23 09:00 Aspirin 81 Mg PO DAILY MISSY Atorvastatin Calcium 40 mg 06/19/23 21:00 Atorvastatin 40 Mg Tab PO HS MISSY Furosemide 40 mg 06/19/23 06:00 06/19/23 05:18 Furosemide 10 Mg/Ml 4 Ml Vial IV 40 mg Q12H MISSY Administration Vancomycin HCl 1,500 mg/ 500 mls @ 167 mls/hr 06/19/23 01:00 06/19/23 02:13 Sodium Chloride IVPB 167 mls/hr Q8H MISSY Administration Metoprolol Succinate 25 mg 06/19/23 09:00 Metoprolol Succinate (Er) 25 Mg Tab.Er.24h PO DAILY MISSY Miscellaneous Information 0 each 06/20/23 08:00 Vancomycin Trough Due 1 Each Misc MISCELLANE 06/20/23 08:01 DIRECTED ONE Naloxone HCl 0.2 mg 06/18/23 16:17 Naloxone 0.4 Mg/Ml 1 Ml Vial IV Q2M PRN Opioid Reversal Pantoprazole Sodium 40 mg 06/19/23 09:00 Pantoprazole 40 Mg Tablet PO DAILY MISSY Intake and Output 06/18/23 06/19/23 06/19/23 22:59 06:59 14:59 Intake Total 900 Output Total 400 Balance 500 Intake: Oral 900 Output: Urine 400 Other: Voiding Method External Catheter Weight 83.915 kg 06/18/23 13:02 06/18/23 13:02
[2023-06-19 11:30] LABS: Blood Urea Nitrogen 9.3 mg/dL (9.0-27.0); Calcium 7.6 mg/dL (8.7-10.3); Carbon Dioxide 22.4 mmol/L (21.6-31.8); Chloride 104 mmol/L (96-109); Glucose 94 mg/dL (70-110); Potassium 3.4 mmol/L (3.5-5.5); Sodium 138 mmol/L (135-145)
[2023-06-19] MEDS: HYDROcodone/APAP 5-325MG 1 EACH TAB PO PRN (11:40)
[2023-06-19] MEDS: HEPARIN SODIUM 1,000 UN/ML (10ML VL) IV ONE (11:40)
[2023-06-19] MEDS: HEPARIN SOD,PORK IN 0.45% NACL 25,000 UNIT in 0.45% NACL 1 250ML.BAG IV SCH (11:41)
--- NOTE | 2023-06-19 12:44 | P.GSCN ---
History of Present Illness Consult date: 06/19/23 Reason for Consult: Bypass wounds Requesting physician: Mukesh Miranda History of present illness: This is a 63-year-old male patient known to vascular surgery who was recently admitted for peripheral arterial disease and gangrene toe. on 06/06/2023 he underwent left external iliac, femoral and popliteal artery endarterectomy with patch angioplasty, as well as left femoral to popliteal artery bypass with in si tu vein graft. Patient was discharged on 06/09/2023. Patient presented to the emergency department yesterday with concerns for infection of the left lower extremity. He states for the last weeks duration he had drainage from his left lower extremity surgical sites. His left groin he states he took his prevena dressing off last week Monday and he states that he had drainage and it did not look great since then. He never called vascular surgery office or his primary care physician and was not seen. He states he continued to have increased drainage and it was purulent so he came to the emergency department for further evaluation. He denies any fevers or chills, no body aches. Denies any s hortness of breath, chest pain and has tenderness near the incision sites however pain is improved especially in foot since his surgery. Review of Systems A 14 point review systems was completed all pertinent positives and negatives as stated in the HPI. Past Medical History Past Medical History: Coronary Artery Disease (CAD), Chest Pain / Angina, GERD/Reflux, Hyperlipidemia, Hypertension, Myocardial Infarction ([place]) Additional Past Medical History / Comment(s): AAA. Hx gout. HX FX LT Ankle 05/2017. POSS HERNIA IN ABD. Last Myocardial Infarction Date:: 2010 History of Any Multi-Drug Resistant Organisms: None Reported Past Surgical History: Heart Catheterization With Stent, Orthopedic Surgery Additional Past Surgical History / Comment(s): LT WRIST SX, UNSURE IF ANY METAL PLACED. Lt.ankle surgery, 11 screws. Stent x1. EXPLORATORY LAPAROTOMY 01/19/18, UNABLE TO REPAIR AAA. Stent to Abdominal Aortic Aneurysm 2022. Past Anesthesia/Blood Transfusion Reactions: Previous Problems w/ Anesthesia Additional Past Anesthesia/Blood Transfusion Reaction / Comm: "Takes a lot to put him out." Date of Last Stent Placement:: 2010 Past Psychological History: Anxiety Additional Psychological History / Comment(s): . Smoking Status: Current every day smoker Past Alcohol Use History: Daily Past Drug Use History: Marijuana Additional Drug Use History / Comment(s): Uses marijuana daily, half a joint. Instructed to hold 24 hrs prior to procedure - Past Family History Father Family Medical History: Cancer Additional Family Medical History / Comment(s): AGE 72 [place] W/ METS Mother Family Medical History: Hypertension Medications and Allergies Home Medications Medication Instructions Recorded Confirmed Type Metoprolol Succinate (ER) [Toprol 25 mg PO DAILY PRN 05/30/23 06/18/23 History XL] Atorvastatin [Lipitor] 40 mg PO HS #30 tab 06/09/23 06/18/23 Rx Losartan [Cozaar] 25 mg PO DAILY #30 tab 06/09/23 06/18/23 Rx Pantoprazole Sodium [Protonix] 40 mg PO DAILY #30 tab 06/09/23 06/18/23 Rx Allergies Allergy/AdvReac Type Severity Reaction Status Date / Time No Known Allergies Allergy Verified 06/18/23 16:26 Surgical - Exam Vital Signs Temp Pulse Resp BP Pulse Ox 98.4 F 83 20 138/74 98 06/18/23 12:54 06/18/23 12:54 06/18/23 12:54 06/18/23 12:54 06/18/23 12:54 General appearance: The patient is alert, oriented, appears in no acute distress. HET: Head is normocephalic and atraumatic. Pupils are equal and reactive. Neck: Supple. Heart: Regular. Lungs: Equal expansion, normal respiratory effort. Abdomen: Soft, nontender, nondistended. Extremities: Left great toe dry gangrene. Left groin and surgical incision open with purulent drainage. Left medial thigh surgical incision small opening with serosanguineous drainage, left medial lower extremity surgical incision open with cysts serosanguineous drainage. Patent bypass with PT Doppler signal present. Neurological: No focal deficits. Strength and sensation are grossly intact. Results - Labs 06/19/23 10:23 06/19/23 04:54 Abnormal Lab Results - Last 24 Hours (Table) 06/18/23 06/18/23 06/18/23 Range/Units 13:02 13:02 13:02 WBC 16.4 H (3.8-10.6) k/uL RBC 2.76 L (4.30-5.90) m/uL Hgb 9.4 L D (13.0-17.5) gm/dL Hct 31.0 L (39.0-53.0) % MCV 112.5 H D (80.0-100.0) fL MCH (27.0-32.0) pg MCHC 30.3 L (31.0-37.0) g/dL RDW 17.5 H (11.5-15.5) % Immature Gran # (0.00-0.04) X 10*3/uL Neutrophils # 14.5 H (1.3-7.7) k/uL Lymphocytes # 0.9 L (1.0-4.8) k/uL Monocytes # (0.20-1.00) X 10*3/uL Macrocytosis Marked A PT 12.9 H (10.0-12.5) sec INR 1.2 H (<1.2) Creatinine 0.65 L (0.66-1.25) mg/dL Iron (65-175) UG/DL TIBC (228-460) UG/DL % Saturation (15.00-50.00) Transferrin (204.0-354.0) mg/dL Alkaline Phosphatase 291 H (38-126) U/L Total Protein 6.2 L (6.3-8.2) g/dL Albumin 3.1 L (3.5-5.0) g/dL 06/19/23 06/19/23 Range/Units 04:54 04:54 WBC 13.96 H (3.8-10.6) k/uL RBC 2.31 L (4.30-5.90) m/uL Hgb 7.8 L (13.0-17.5) gm/dL Hct 26.0 L (39.0-53.0) % MCV 112.6 H (80.0-100.0) fL MCH 33.8 H (27.0-32.0) pg MCHC 30.0 L (31.0-37.0) g/dL RDW 17.2 H (11.5-15.5) % Immature Gran # 0.09 H (0.00-0.04) X 10*3/uL Neutrophils # 11.42 H (1.3-7.7) k/uL Lymphocytes # (1.0-4.8) k/uL Monocytes # 1.16 H (0.20-1.00) X 10*3/uL Macrocytosis PT (10.0-12.5) sec INR (<1.2) Creatinine (0.66-1.25) mg/dL Iron 14 L (65-175) UG/DL TIBC 200 L (228-460) UG/DL % Saturation 7.00 L (15.00-50.00) Transferrin 143.0 L (204.0-354.0) mg/dL Alkaline Phosphatase (38-126) U/L Total Protein (6.3-8.2) g/dL Albumin (3.5-5.0) g/dL Diabetes panel 06/18/23 Range/Units 13:02 Sodium 138 (137-145) mmol/L Potassium 4.0 (3.5-5.1) mmol/L Chloride 107 (98-107) mmol/L Carbon Dioxide 26 (22-30) mmol/L BUN 9 (9-20) mg/dL Creatinine 0.65 L (0.66-1.25) mg/dL Glucose 99 (74-99) mg/dL Calcium 8.6 (8.4-10.2) mg/dL AST 40 (17-59) U/L ALT 13 (4-49) U/L Alkaline Phosphatase 291 H (38-126) U/L Total Protein 6.2 L (6.3-8.2) g/dL Albumin 3.1 L (3.5-5.0) g/dL Calcium panel 06/18/23 Range/Units 13:02 Calcium 8.6 (8.4-10.2) mg/dL Albumin 3.1 L (3.5-5.0) g/dL Pituitary panel 06/18/23 Range/Units 13:02 Sodium 138 (137-145) mmol/L Potassium 4.0 (3.5-5.1) mmol/L Chloride 107 (98-107) mmol/L Carbon Dioxide 26 (22-30) mmol/L BUN 9 (9-20) mg/dL Creatinine 0.65 L (0.66-1.25) mg/dL Glucose 99 (74-99) mg/dL Calcium 8.6 (8.4-10.2) mg/dL Adrenal panel 04/14/24 Range/Units 13:02 Sodium 138 (137-145) mmol/L Potassium 4.0 (3.5-5.1) mmol/L Chloride 107 (98-107) mmol/L Carbon Dioxide 26 (22-30) mmol/L BUN 9 (9-20) mg/dL Creatinine 0.65 L (0.66-1.25) mg/dL Glucose 99 (74-99) mg/dL Calcium 8.6 (8.4-10.2) mg/dL Total Bilirubin 1.0 (0.2-1.3) mg/dL AST 40 (17-59) U/L ALT 13 (4-49) U/L Alkaline Phosphatase 291 H (38-126) U/L Total Protein 6.2 L (6.3-8.2) g/dL Albumin 3.1 L (3.5-5.0) g/dL Assessment and Plan Assessment: 1. Infected surgical incision site 2. History of peripheral arterial disease status post left external iliac, femoral and popliteal artery endarterectomy with patch angioplasty, as well as l eft femoral to popliteal artery bypass with in situ vein graft 3. Peripheral arterial disease 4. Left great toe dry gangrene 5. New-onset atrial fibrillation 6. Chronic tobacco use 7. History of daily alcohol use Plan: 1. Obtain wound culture of left groin 2. Consult to wound care 3. Continue current antibiotics 4. Will plan to take patient back tomorrow afternoon for left lower extremity washout and deep tissue cultures 5. Patient may have breakfast in the morning, n.p.o. after 8 AM Thank you for this consultation, we will continue to follow. The impression and plan of care has been dictated as directed. I performed a history and examination of this patient, discussed the same with the dictator. I agree with the dictator's note ,documented as a scribe. Any additional findings or plans will be noted.
--- NOTE | 2023-06-19 18:37 | P.PN ---
Subjective Progress Note Date: 06/19/23 This is a 63-year-old gentleman discharged 06/09/2023 with PAD, left great toe dry gangrene , status post external iliac, femoral and popliteal artery endarterectomy with patch angioplasty and left femoral popliteal artery bypass with in situ vein graft, returning with infected surgical site infections. Rep orts over the last week having purulent drainage from surgical sites, did not notify PCP nor vascular surgery. Denies fevers or chills. Denies chest pain, palpitations or shortness of breath. Objective - Vital Signs Vital signs: Vital Signs Temp 98.0 F 06/19/23 14:40 Pulse 70 06/19/23 14:40 Resp 18 06/19/23 14:40 BP 120/76 06/19/23 14:40 Pulse Ox 98 06/19/23 14:40 FiO2 Intake & Output 06/18/23 06/19/23 06/19/23 18:59 06:59 18:59 Intake Total 900 550 Output Total 400 2300 Balance 500 -1750 Weight 83.915 kg 83.915 kg Intake: Oral 900 550 Output: Urine 400 2300 Other: Voiding Method External Catheter External Catheter - Exam PHYSICAL EXAM: VITAL SIGNS: [As above] GENERAL: Alert and oriented x 3, sitting up in chair, no acute distress. HEENT: Normocephalic. Conjunctivae normal. eyes normal. NECK: Supple, no JVD. CARDIOVASCULAR: S1, S2 regular.No murmur RESPIRATION: Unlabored, equal air entry,essentially clear with bilateral bases diminished. ABDOMEN: Soft, nontender . No guarding. Positive bowel sounds. EXTREMITIES: Left great toe dry gangrene: Left lower extremity: Tender groin/surgical incision site -open with purulent drainage, tender left medial thigh, left medial lower extremity surgical sites- openings with serosanguineous drainage. Positive Doppler pulses NERVOUS SYSTEM: Cranial N 2-12 grossly normal. No focal deficits. Strength and sensation grossly intact. Skin: Warm and dry, no rash - Labs CBC & Chem 7: 06/19/23 10:23 06/19/23 04:54 Labs: Abnormal Lab Results - Last 24 Hours (Table) 06/19/23 06/19/23 06/19/23 Range/Units 04:54 04:54 04:54 WBC 13.96 H (4.50-10.00) X 10*3/uL RBC 2.31 L (4.40-5.60) X 10*6/uL Hgb 7.8 L (13.0-17.0) g/dL Hct 26.0 L (39.6-50.0) % MCV 112.6 H (80.0-97.0) FL MCH 33.8 H (27.0-32.0) pg MCHC 30.0 L (32.0-37.0) g/dL RDW 17.2 H (11.5-14.5) % Immature Gran # 0.09 H (0.00-0.04) X 10*3/uL Neutrophils # 11.42 H (1.80-7.70) X 10*3/uL Monocytes # 1.16 H (0.20-1.00) X 10*3/uL Macrocytosis PT (10.0-12.5) sec INR (<1.2) Potassium 3.4 L (3.5-5.5) mmol/L Calcium 7.6 L (8.7-10.3) mg/dL Iron 14 L (65-175) UG/DL TIBC 200 L (228-460) UG/DL % Saturation 7.00 L (15.00-50.00) Transferrin 143.0 L (204.0-354.0) mg/dL 06/19/23 06/19/23 Range/Units 10:23 10:23 WBC 13.4 H (4.50-10.00) X 10*3/uL RBC 2.51 L (4.40-5.60) X 10*6/uL Hgb 8.9 L (13.0-17.0) g/dL Hct 28.4 L (39.6-50.0) % MCV 113.1 H (80.0-97.0) FL MCH 35.5 H (27.0-32.0) pg MCHC (32.0-37.0) g/dL RDW 17.2 H (11.5-14.5) % Immature Gran # (0.00-0.04) X 10*3/uL Neutrophils # 11.5 H (1.80-7.70) X 10*3/uL Monocytes # (0.20-1.00) X 10*3/uL Macrocytosis Marked A PT 13.1 H (10.0-12.5) sec INR 1.2 H (<1.2) Potassium (3.5-5.5) mmol/L Calcium (8.7-10.3) mg/dL Iron (65-175) UG/DL TIBC (228-460) UG/DL % Saturation (15.00-50.00) Transferrin (204.0-354.0) mg/dL Assessment and Plan Assessment: Infected surgical incision sites in a patient with history of PAD, left great toe dry gangrene, recent external iliac, femoral and popliteal artery endarterectomy with patch angioplasty and left femoral popliteal artery bypass with in situ vein graft. History of aortic aneurysm with endovascular repair; New onset paroxysmal atrial fibrillation CAD, history of stent placement Essential hypertension Hyperlipidemia Nicotine dependence Daily alcohol use Noncompliance with medication regimen Hypokalemia Plan: Continue on current medication regimen ,monitoring and symptomatic treatment. Maintain IV antibiotics. anticoagulate with heparin drip. Wound cultures/wound care. Scheduled for left lower extremity washout and deep tissue cultures tomorrow with vascular surgery. Potassium supplements ordered. The impression and plan of care has been dictated as directed. : I performed a history and examination of this patient, discussed the same with the dictator. I agree with the dictator's note ,documented as a scribe. Any additional findings or plans will be noted.
[2023-06-19] MEDS: POTASSIUM CHLORIDE ER 20 MEQ TAB.ER PO SCH (21:05)
[2023-06-19] MEDS: ATORVASTATIN 40 MG TAB PO SCH (21:05)
[2023-06-20 07:07] LABS: Anisocytosis Slight; Basophils # (A) 0.1 k/uL (0-0.2); Basophils % (A) 1 %; Eosinophils # (A) 0.4 k/uL (0-0.7); Eosinophils % (A) 3 %; HCT 30.8 % (39.0-53.0); HGB 8.8 gm/dL (13.0-17.5); Hypochromasia Marked; Lymphocytes # (A) 1.1 k/uL (1.0-4.8); Lymphocytes % (A) 9 %; MCH 33.8 pg (25.0-35.0); MCHC 28.5 g/dL (31.0-37.0); Mean Platelet Volume 9.7; Monocytes # (A) 0.6 k/uL (0-1.0); Monocytes % (A) 5 %; Neutrophils % (A) 81 %; Platelet Count 319 k/uL (150-450); RDW 17.2 % (11.5-15.5); WBC 12.4 k/uL (3.8-10.6)
[2023-06-20 07:09] LABS: MCV 118.3 fL (80.0-100.0); Macrocytosis Marked
[2023-06-20 08:56] LABS: Magnesium 1.7 mg/dL (1.5-2.4)
[2023-06-20 09:13] LABS: Blood Urea Nitrogen 9.3 mg/dL (9.0-27.0); Glucose 75 mg/dL (70-110)
[2023-06-20 09:14] LABS: Calcium 7.6 mg/dL (8.7-10.3); Carbon Dioxide 20.8 mmol/L (21.6-31.8); Chloride 104 mmol/L (96-109); Potassium 4.4 mmol/L (3.5-5.5); Sodium 138 mmol/L (135-145)
[2023-06-20 09:47] LABS: African American GFR (CKD) >90 (>60 ml/min/1.73 sqM); Non-African American GFR(CKD) >90 (>60 ml/min/1.73 sqM)
[2023-06-20] MEDS: VANCOMYCIN TROUGH DUE 1 EACH MISC MISCELLANE ONE (09:48)
[2023-06-20] MEDS ORDERED: VANCOMYCIN IV PER PHARMACY 1 EACH MISC MISCELLANE PRN (10:06)
[2023-06-20 11:09] LABS: INR 1.27 sec (0.93-1.11); Prothrombin Time 13.5 sec (9.9-11.9)
--- NOTE | 2023-06-20 12:59 | P.PN ---
Subjective Progress Note Date: 06/20/23 Consult reason: atrial fibrillation History of present illness: History of present illness: This is a 63-year-old male patient previously seen by Dr. Yash Randall in the office in 2019 with past medical history of hypertension, hyperlipidemia, peripheral vascular disease. We have been asked to evaluate the patient for new onset atrial fibrillation. Patient was recently hospitalized 05/29 - 06/08 and seen at that time by cardiology regarding clearance for surgery. Patient subsequently underwent left external iliac artery endarterectomy, femoral artery en darterectomy, popliteal artery endarterectomy and femoral-popliteal artery bypass. Patient returned to the hospital due to drainage from the incision site and gangrene to the left great toe. Patient denies having any chest pain or shortness of breath, no palpitations, no lightheadedness or dizziness. EKG atrial fibrillation 87 bpm Chest x-ray: No acute process. Venous Doppler duplex of the left lower extremity revealed patent graft. No evidence of DVT. Extensive superficial soft tissue edema. WBC 13.9, hemoglobin 7.8, platelet count 289. INR 1.2. Electrolytes are normal. BUN 9 creatinine 0.65. Iron 14, TIBC 200, saturation 7, transferrin 1.43. proBNP 2670. Alkaline phosphatase 291 otherwise liver function test are normal. Home cardiac medications: Toprol XL 25 mg daily ordered but not been taken, losartan 25 mg daily, atorvastatin 40 mg daily. Toprol has been resumed as a scheduled medication. Lexiscan stress test performed 06/02/2023 revealed no stress induced ischemic changes. Echocardiogram performed 06/01/2023 reveals EF of 55 to 60%. Mild concentric left ventricular hypertrophy. Mild left atrial dilatation. Mild MR. 4/16 Patient is currently in a sinus rhythm and upon review of past EKGs and strips, patient has remained in sinus rhythm with PACs. No sign of atrial fibrillation.. Blood pressure 120/64, heart rate in the 60s and 70s, pulse ox 100% on room air. Repeat blood work reveals WBC 12.4, hemoglobin 8.8. Sodium 138, potassium 4.4, BUN 9.3 and creatinine 0.6. Patient is scheduled for left lower extremity washout and deep tissue cultures with vascular surgery. Heparin drip will be discontinued. Physical examination: Gen: This is a 63-year-old male in no acute distress VS: reviewed HEENT: Head is atraumatic, normocephalic. Pupils equal, round. Sclerae is anicteric. NECK: Supple. No JVD. LUNGS: Clear to auscultation. No wheezes or rhonchi. No intercostal retractions. HEART: Irregular rate and rhythm. No murmur. ABDOMEN: Soft No tenderness. EXTREMITIES: No pedal edema. No calf tenderness. Gangrene changes to the left great toe, dressing in place to the medial calf. NEUROLOGICAL: Patient is awake, alert and oriented x3. Assessment: No atrial fibrillation, patient is in sinus rhythm Left lower extremity cellulitis serous drainage at surgical site Peripheral vascular disease with gangrene left great toe Recent femoropopliteal arterial bypass done on 06/06/2023 Coronary artery disease with previous stenting of the circumflex in 2010 History of endovascular aortic repair in 2019 Hypertension Hyperlipidemia Daily alcohol intake Tobacco use and dependence Noncompliance with medication regime Plan: Continue patient's home cardiac medications Discontinue heparin drip Further recommendations to follow based upon clinical course Nurse practitioner note has been reviewed, I agree with documented findings and plan of care. Patient was seen and examined. Objective - Vital Signs Vital signs: Vital Signs Temp 98.6 F 06/20/23 07:12 Pulse 60 06/20/23 07:12 Resp 20 06/20/23 07:12 BP 120/64 06/20/23 07:12 Pulse Ox 100 06/20/23 07:12 FiO2 Intake & Output 06/19/23 06/20/23 06/20/23 18:59 06:59 18:59 Intake Total 550 Output Total 2300 900 600 Balance -1750 -900 -600 Intake: Oral 550 Output: Urine 2300 900 600 Other: Voiding Method External Catheter External Catheter Incontinent External Catheter # Bowel Movements 2 - Labs CBC & Chem 7: 06/20/23 05:25 06/20/23 08:49 Labs: Abnormal Lab Results - Last 24 Hours (Table) 06/19/23 06/19/23 06/19/23 Range/Units 04:54 10:23 10:23 WBC 13.4 H (3.8-10.6) k/uL RBC 2.51 L (4.30-5.90) m/uL Hgb 8.9 L (13.0-17.5) gm/dL Hct 28.4 L (39.0-53.0) % MCV 113.1 H (80.0-100.0) fL MCH 35.5 H (25.0-35.0) pg MCHC (31.0-37.0) g/dL RDW 17.2 H (11.5-15.5) % Neutrophils # 11.5 H (1.3-7.7) k/uL Macrocytosis Marked A PT 13.1 H (10.0-12.5) sec INR 1.2 H (<1.2) Potassium 3.4 L (3.5-5.5) mmol/L Carbon Dioxide (21.6-31.8) mmol/L Anion Gap (4.00-12.00) mmol/L Creatinine (0.66-1.25) mg/dL Calcium 7.6 L (8.7-10.3) mg/dL Vancomycin Trough ug/mL 06/20/23 06/20/23 06/20/23 Range/Units 05:25 05:25 08:49 WBC 12.4 H (3.8-10.6) k/uL RBC 2.60 L (4.30-5.90) m/uL Hgb 8.8 L (13.0-17.5) gm/dL Hct 30.8 L (39.0-53.0) % MCV 118.3 H D (80.0-100.0) fL MCH (25.0-35.0) pg MCHC 28.5 L (31.0-37.0) g/dL RDW 17.2 H (11.5-15.5) % Neutrophils # 10.0 H (1.3-7.7) k/uL Macrocytosis Marked A PT (10.0-12.5) sec INR (<1.2) Potassium (3.5-5.5) mmol/L Carbon Dioxide 20.8 L (21.6-31.8) mmol/L Anion Gap 13.20 H (4.00-12.00) mmol/L Creatinine 0.58 L (0.66-1.25) mg/dL Calcium 7.6 L (8.7-10.3) mg/dL Vancomycin Trough ug/mL 06/20/23 Range/Units 08:49 WBC (3.8-10.6) k/uL RBC (4.30-5.90) m/uL Hgb (13.0-17.5) gm/dL Hct (39.0-53.0) % MCV (80.0-100.0) fL MCH (25.0-35.0) pg MCHC (31.0-37.0) g/dL RDW (11.5-15.5) % Neutrophils # (1.3-7.7) k/uL Macrocytosis PT (10.0-12.5) sec INR (<1.2) Potassium (3.5-5.5) mmol/L Carbon Dioxide (21.6-31.8) mmol/L Anion Gap (4.00-12.00) mmol/L Creatinine (0.66-1.25) mg/dL Calcium (8.7-10.3) mg/dL Vancomycin Trough 31.1 H* ug/mL Microbiology - Last 24 Hours (Table) 06/19/23 11:57 Gram Stain - Preliminary Groin Wound Culture - Preliminary Presumptive Staph aureus 06/18/23 13:20 Blood Culture - Preliminary Blood 06/18/23 13:24 Blood Culture - Preliminary Blood
--- NOTE | 2023-06-20 13:08 | P.PN ---
Subjective Progress Note Date: 06/20/23 06/19/2023 this is a 63-year-old gentleman discharged 06/09/2023 with PAD, left great toe dry gangrene , status post external iliac, femoral and popliteal artery endarterectomy with patch angioplasty and left femoral popliteal artery bypass with in situ vein graft, returning with infected surgical site infect ions. Reports over the last week having purulent drainage from surgical sites, did not notify PCP nor vascular surgery. Denies fevers or chills. Denies chest pain, palpitations or shortness of breath. 06/20/2023 NPO, washout with deep tissue biopsies scheduled for today. Wound culture reporting presumptive staph aures. Continues on vancomycin. Renal function stable. Afebrile, WBC trending down 12.4. Reevaluated by cardiology, EKG reviewed, no atrial fibrillation. Objective - Vital Signs Vital signs: Vital Signs Temp 98.6 F 06/20/23 07:12 Pulse 60 06/20/23 07:12 Resp 20 06/20/23 07:12 BP 120/64 06/20/23 07:12 Pulse Ox 100 06/20/23 07:12 FiO2 Intake & Output 06/19/23 06/20/23 06/20/23 18:59 06:59 18:59 Intake Total 550 Output Total 2300 900 600 Balance -1750 -900 -600 Intake: Oral 550 Output: Urine 2300 900 600 Other: Voiding Method External Catheter External Catheter Incontinent External Catheter # Bowel Movements 2 - Exam PHYSICAL EXAM: VITAL SIGNS: [As above] GENERAL: Alert and oriented x 3, sitting up in chair, no acute distress. HEENT: Normocephalic. Conjunctivae normal. eyes normal. NECK: Supple, no JVD. CARDIOVASCULAR: S1, S2 regular.No murmur RESPIRATION: Unlabored, equal air entry,essentially clear with bilateral bases diminished. ABDOMEN: Soft, nontender . No guarding. Positive bowel sounds. EXTREMITIES: Left great toe dry gangrene: Left lower extremity dressings clean dry and intact, positive Doppler pulses NERVOUS SYSTEM: Cranial N 2-12 grossly normal. No focal deficits. Strength and sensation grossly intact. Skin: Warm and dry, no rash - Labs CBC & Chem 7: 06/20/23 05:25 06/20/23 08:49 Labs: Abnormal Lab Results - Last 24 Hours (Table) 06/20/23 06/20/23 06/20/23 Range/Units 05:25 05:25 05:25 WBC 12.4 H (3.8-10.6) k/uL RBC 2.60 L (4.30-5.90) m/uL Hgb 8.8 L (13.0-17.5) gm/dL Hct 30.8 L (39.0-53.0) % MCV 118.3 H D (80.0-100.0) fL MCHC 28.5 L (31.0-37.0) g/dL RDW 17.2 H (11.5-15.5) % Neutrophils # 10.0 H (1.3-7.7) k/uL Macrocytosis Marked A PT 13.5 H (9.9-11.9) sec INR 1.27 H (0.93-1.11) sec Carbon Dioxide 20.8 L (21.6-31.8) mmol/L Anion Gap 13.20 H (4.00-12.00) mmol/L Creatinine (0.66-1.25) mg/dL Calcium 7.6 L (8.7-10.3) mg/dL Vancomycin Trough ug/mL 06/20/23 06/20/23 Range/Units 08:49 08:49 WBC (3.8-10.6) k/uL RBC (4.30-5.90) m/uL Hgb (13.0-17.5) gm/dL Hct (39.0-53.0) % MCV (80.0-100.0) fL MCHC (31.0-37.0) g/dL RDW (11.5-15.5) % Neutrophils # (1.3-7.7) k/uL Macrocytosis PT (9.9-11.9) sec INR (0.93-1.11) sec Carbon Dioxide (21.6-31.8) mmol/L Anion Gap (4.00-12.00) mmol/L Creatinine 0.58 L (0.66-1.25) mg/dL Calcium (8.7-10.3) mg/dL Vancomycin Trough 31.1 H* ug/mL Microbiology - Last 24 Hours (Table) 06/19/23 11:57 Gram Stain - Preliminary Groin Wound Culture - Preliminary Presumptive Staph aureus 06/18/23 13:20 Blood Culture - Preliminary Blood 06/18/23 13:24 Blood Culture - Preliminary Blood Assessment and Plan Assessment: Infected surgical incision sites in a patient with history of PAD, left great toe dry gangrene, recent external iliac, femoral and popliteal artery endarterectomy with patch angioplasty and left femoral popliteal artery bypass with in situ vein graft. Preliminary wound cultures reporting presumptive staph aures. History of aortic aneurysm with endovascular repair; Not new onset proximal atrial fibrillation as per further review by cardiology. CAD, history of stent placement Essential hypertension Hyperlipidemia Nicotine dependence Daily alcohol use Noncompliance with medication regimen Hypokalemia, resolved with supplementation. Iron deficient anemia Plan: Continue on current medication regimen ,monitoring and symptomatic treatment. Maintain IV antibiotics, close monitoring of renal function with repeat labs ordered for a.m. Wound cultures Finalizing.Wound care team consult in place. Scheduled for left lower extremity washout and deep tissue cultures today with vascular surgery. The impression and plan of care has been dictated as directed. : I performed a history and examination of this patient, discussed the same with the dictator. I agree with the dictator's note ,documented as a scribe. Any additional findings or plans will be noted.
[2023-06-20] MEDS: SODIUM FERRIC GLUCONAT-SUCROSE 125 MG in SODIUM CHLORIDE 0.9% 100 ML IVPB SCH (14:14)
[2023-06-20 15:10] LABS: HGB 9.4 gm/dL (13.0-17.5)
[2023-06-20 15:11] LABS: MCV 112.5 fL (80.0-100.0)
[2023-06-20] MEDS: LACTATED RINGERS 1,000 ML IV ONE (16:15)
[2023-06-20] MEDS ORDERED: ePHEDrine 50 MG/ML 1 ML VIAL ONE (16:21)
[2023-06-20] MEDS ORDERED: LIDOCAINE 1% INJ 10MG/ML (20 ML MDV) ONE (16:21)
[2023-06-20] MEDS ORDERED: fentaNYL (PF) 50 MCG/ML 2 ML AMP ONE (16:21)
[2023-06-20] MEDS ORDERED: MIDAZOLAM 2 MG/2 ML VIAL ONE (16:21)
[2023-06-20] MEDS ORDERED: HYDROmorphone (PF) 1 MG/ML ONE (16:21)
[2023-06-20] MEDS ORDERED: PHENYLEPHRINE-0.9% NACL SYG 1,000 MCG/10 ML SYRINGE ONE (16:21)
[2023-06-20] MEDS ORDERED: PROPOFOL 10 MG/ML 20 ML VIAL IV ONE (16:21)
[2023-06-20] MEDS: FAMOTIDINE 20 MG/2 ML VIAL IVP ONE (16:23)
[2023-06-20] MEDS: TOBRAMYCIN SULFATE 1.2 GM VIAL MISCELLANE ONE (17:05)
[2023-06-20] MEDS: VANCOMYCIN 1,000 MG VIAL MISCELLANE ONE (17:06)
[2023-06-20] MEDS: ceFAZolin 3,000 MG in SODIUM CHLORIDE 0.9% IRRIGATIO 3,000 ML IRRIGATION ONE (17:07)
--- NOTE | 2023-06-20 18:24 | P.OP ---
Date of Procedure: 06/20/23 Preoperative Diagnosis: Left lower extremity skin incision dehiscence secondary to edema Recent femoral tibial bypass with insitu vein graft for critical limb ischemia Postoperative Diagnosis: Same Procedure(s) Performed: Excisional debridement and washout of groin incision and lower leg incisions Placement of antibiotic beads and drain Anesthesia: DAVID Surgeon: Caden Inman Estimated Blood Loss (ml): 20 Pathology: other (deep wound culture of the left groin and distal popliteal incision) Condition: stable Disposition: PACU Indications for Procedure: 63 year old gentleman with history of left femoral below knee bypass with GSV insitu graft presented back to the hospital with increased swelling and drainage from his incisions at the groin and lower leg. He states he has not been elevating his legs as much as he should. He noticed once the legs swelled then the incisions started to pull apart. He presents for washout and closure of the incision sites. Description of Procedure: After written and informed consent was obtained from the patient and all risks, benefits, and complications were discussed the patient was brought to the operating room and laid in a supine position. The area of the left lower extremity was prepped and draped in the usual fashion. The incisions were draining with clear fluid and incision sites were pulling apart. The sutures were cut and there was significant fibrinous tissue within the groin incision which was removed sharply with a scalpel down to the fascia. Wound measured 8cm x 2cm x 4cm in depth at the groin. The same was performed on all incisions at the medial leg with the lower incision, wound measuring 10cm x 3cm x 8cm. All fibrinous tissue was removed sharply with a scalpel down to the fascia again. The areas were cultured and irrigated with antibiotic solution. An antibiotic paste beads were made and placed into the wounds as well as a 15 SANDY drain was placed into each wound and incisions were closed with 2-0 Nylon suture in a vertical mattress fashion. The skin was cleansed and dressings were placed. The patient tolerated the procedure well and was sent to PACU for recovery.
--- NOTE | 2023-06-21 11:00 | P.CONS ---
History of Present Illness - Reason for Consult Consult date: 06/21/23 wound care - History of Present Illness This is a 63-year-old male known to the vascular Surgery who underwent a left external iliac femoral and popliteal artery endarterectomy with patch angioplasty on 06/06/2023. Patient also had a left femoral to popliteal artery bypass with in situ vein graft. He was discharged on 06/09/2023. He presented to the emergency department with concerns of infection swelling and drainage. Stephanie ient underwent a washout on 06/20/2023. Currently patient has SANDY drains to the left groin and left medial calf. Surgical dressings are in site at this time. Patient does have a left great toe ulceration that has dry gangrene and a open ulceration to the left heel. Review Of Systems: Constitutional: No fever, no chills, no night sweats. No weight change. No weakness, fatigue or lethargy. No daytime sleepiness. Integumentary:reports wounds, no lesions. No rash or pruritus. No unusual bruising. No change in hair or nails. Physical exam: General Appearance: Alert, cooperative, no distress, appears stated age. Skin: See HPI all other Skin color, texture, tugor normal, no rashes or lesions. Neurologic: Alert oriented x3 Assessment: 1. Nonhealing ulceration with muscle involvement without necrosis left groin 2. Nonhealing ulceration with muscle involvement without necrosis left thigh 3. Nonhealing ulceration with muscle involvement without necrosis left calf 4. Nonhealing ulceration with gangrene left great toe 5. Stage II pressure ulcer left heel Plan: 1.Left lower extremity incisional ulcerations: Apply absorptive silver rope dry cover with ABD or border foam. Secure with tape. Left foot heel and great toe ulceration no dressing needed. Patient would benefit from advanced wound care and wound care setting. Patient states that he is unsure if he can come to the wound care center due to transportation. He will try to work it out with his sister. We will be happy to see him upon discharge. Thank you for the consultation any questions please contact the wound care center DNP note has been reviewed and discussed with Dr. Osuna and the impression and plan of care has been directed as dictated. Past Medical History Past Medical History: Coronary Artery Disease (CAD), Chest Pain / Angina, GERD/Reflux, Hyperlipidemia, Hypertension, Myocardial Infarction ([place]) Additional Past Medical History / Comment(s): AAA. Hx gout. HX FX LT Ankle 05/2017. POSS HERNIA IN ABD. Last Myocardial Infarction Date:: 2010 History of Any Multi-Drug Resistant Organisms: None Reported Past Surgical History: Heart Catheterization With Stent, Orthopedic Surgery Additional Past Surgical History / Comment(s): LT WRIST SX, UNSURE IF ANY METAL PLACED. Lt.ankle surgery, 11 screws. Stent x1. EXPLORATORY LAPAROTOMY 01/19/18, UNABLE TO REPAIR AAA. Stent to Abdominal Aortic Aneurysm 2022. Past Anesthesia/Blood Transfusion Reactions: Previous Problems w/ Anesthesia Additional Past Anesthesia/Blood Transfusion Reaction / Comm: "Takes a lot to put him out." Date of Last Stent Placement:: 2010 Past Psychological History: Anxiety Additional Psychological History / Comment(s): . Smoking Status: Current every day smoker Past Alcohol Use History: Daily Past Drug Use History: Marijuana Additional Drug Use History / Comment(s): Uses marijuana daily, half a joint. Instructed to hold 24 hrs prior to procedure - Past Family History Father Family Medical History: Cancer Additional Family Medical History / Comment(s): AGE 72 STOAMCH CA W/ METS Mother Family Medical History: Hypertension Medications and Allergies Home Medications Medication Instructions Recorded Confirmed Type Metoprolol Succinate (ER) [Toprol 25 mg PO DAILY PRN 05/30/23 06/18/23 History XL] Atorvastatin [Lipitor] 40 mg PO HS #30 tab 06/09/23 06/18/23 Rx Losartan [Cozaar] 25 mg PO DAILY #30 tab 06/09/23 06/18/23 Rx Pantoprazole Sodium [Protonix] 40 mg PO DAILY #30 tab 06/09/23 06/18/23 Rx Allergies Allergy/AdvReac Type Severity Reaction Status Date / Time No Known Allergies Allergy Verified 06/18/23 16:26 Physical Exam Vitals: Vital Signs Temp Pulse Pulse Resp BP BP Pulse Ox 06/21/23 08:48 98 06/21/23 08:00 98.1 F 65 63 18 111/79 99 06/21/23 04:00 98.3 F 63 19 114/72 96 06/21/23 02:00 98.4 F 62 19 114/72 100 06/20/23 20:00 98.8 F 66 19 129/74 98 06/20/23 19:15 67 14 113/69 100 06/20/23 19:00 67 14 129/64 98 06/20/23 18:43 71 14 126/74 99 06/20/23 18:28 66 14 108/60 99 06/20/23 18:13 67 14 103/63 98 06/20/23 17:58 97.3 F L 64 14 114/64 99 06/20/23 16:11 62 16 117/74 06/20/23 12:47 98.4 F 68 20 123/78 100 Intake and Output 06/20/23 06/21/23 06/21/23 22:59 06:59 14:59 Intake Total 801 118 Output Total 320 1080 1000 Balance 070 -5398 -704 Intake: IV 801 Oral 118 Output: Drainage 130 Left Groin 80 Left Thigh 50 Urine [phone] Estimated Blood Loss 20 Other: Voiding Method External Catheter External Catheter External Catheter Results CBC & Chem 7: 06/20/23 05:25 06/20/23 08:49 Labs: Abnormal Lab Results - Last 24 Hours (Table) 06/18/23 06/20/23 Range/Units 13:02 05:25 Hgb 9.4 L D (13.0-17.5) gm/dL MCV 112.5 H D (80.0-100.0) fL PT 13.5 H (9.9-11.9) sec INR 1.27 H (0.93-1.11) sec Microbiology - Last 24 Hours (Table) 06/18/23 13:20 Blood Culture - Preliminary Blood 06/18/23 13:24 Blood Culture - Preliminary Blood 06/19/23 11:57 Gram Stain - Preliminary Groin Wound Culture - Preliminary Presumptive Staph aureus Assessment and Plan (1) Non-pressure chronic ulcer of left calf with muscle involvement without evidence of necrosis Current Visit: Yes Status: Acute Code(s): L97.225 - NON-PRS CHR ULCER OF LEFT CALF WITH MSL INVL W/O EVD OF NECR SNOMED Code(s): 91437788818159419 (2) Non-pressure chronic ulcer of left thigh with muscle involvement without evidence of necrosis Current Visit: Yes Status: Acute Code(s): L97.125 - NON-PRS CHR ULC OF LEFT THIGH WITH MSL INVL W/O EVD OF NECR SNOMED Code(s): 06362855883098255 (3) Non-pressure chronic ulcer of left lower leg with muscle involvement without evidence of necrosis Current Visit: Yes Status: Acute Code(s): L97.925 - NON-PRS CHR ULC UNSP PRT L LW LEG W MSL INVL W/O EVD OF NECR SNOMED Code(s): 22549351586959487 (4) Stage II pressure ulcer of left heel Current Visit: Yes Status: Acute Code(s): L89.622 - PRESSURE ULCER OF LEFT HEEL, STAGE 2 SNOMED Code(s): 76432868891051 (5) Gangrene of toe of left foot Current Visit: Yes Status: Acute Code(s): I96 - GANGRENE, NOT ELSEWHERE CLASSIFIED SNOMED Code(s): 77106627588613560 (6) Dehiscence of external surgical wound Current Visit: No Status: Acute Code(s): T81.31XA - DISRUPTION OF EXTERNAL OPERATION (SURGICAL) WOUND, NEC, INIT SNOMED Code(s): 253241346558667
--- NOTE | 2023-06-21 11:14 | P.PN ---
Subjective Progress Note Date: 06/21/23 Patient seen and examined today as a follow-up. Yesterday he underwent excisional debridement and washout of groin incision and lower leg incisions with placement of antibiotic beads and SANDY drains. He states he is doing well overall. Denies any fevers or chills. Pain is well-managed. SANDY drains in vic ce with serosanguineous drainage. Wound care saw patient for treatment of dry gangrene toe and heel wound. Recommendation to follow-up with outpatient wound care which he will also need for surgical wounds. Wound culture positive for Staphylococcus aureus. Objective - Vital Signs Vital signs: Vital Signs Temp 98.1 F 06/21/23 08:00 Pulse 63 06/21/23 08:00 Resp 18 06/21/23 08:00 BP 111/79 06/21/23 08:00 Pulse Ox 98 06/21/23 08:48 FiO2 Intake & Output 06/20/23 06/21/23 06/21/23 18:59 06:59 18:59 Intake Total 801 118 Output Total 920 1080 1000 Balance -119 -1080 -882 Intake: IV 801 Oral 118 Output: Drainage 130 Left Groin 80 Left Thigh 50 Urine 690 561 4266 Estimated Blood Loss 20 Other: Voiding Method External Catheter External Catheter External Catheter # Bowel Movements 2 - Exam General appearance: The patient is alert, oriented, appears in no acute distress. HET: Head is normocephalic and atraumatic. Pupils are equal and reactive. Neck: Supple. Heart: Regular. Lungs: Equal expansion, normal respiratory effort. Abdomen: Soft, nontender, nondistended. Extremities: Bilateral lower extremity edema. Left groin with dressing clean dry and intact with SANDY drain in place with approximately per right maybe 2020 cc serosanguineous drainage. Left lower extremity dressings clean dry and intact, SANDY drain in place with approximately 20 cc serosanguineous drainage. L ower extremity warm with good capillary refill. Neurological: No focal deficits. Strength and sensation are grossly intact. - Labs CBC & Chem 7: 06/20/23 05:25 06/20/23 08:49 Labs: Abnormal Lab Results - Last 24 Hours (Table) 06/18/23 06/20/23 Range/Units 13:02 05:25 Hgb 9.4 L D (13.0-17.5) gm/dL MCV 112.5 H D (80.0-100.0) fL PT 13.5 H (9.9-11.9) sec INR 1.27 H (0.93-1.11) sec Microbiology - Last 24 Hours (Table) 06/19/23 11:57 Gram Stain - Final Groin Wound Culture - Final Staphylococcus aureus 06/18/23 13:20 Blood Culture - Preliminary Blood 06/18/23 13:24 Blood Culture - Preliminary Blood Assessment and Plan Assessment: 1. Dehiscence of surgical incision secondary to edema with infected surgical incision site status post debridement and washout with antibiotic beads placed and SANDY drains placed 2. History of peripheral arterial disease status post left external iliac, femoral and popliteal artery endarterectomy with patch angioplasty, as well as left femoral to popliteal artery bypass with in situ vein graft 3. Peripheral arterial disease 4. Left great toe dry gangrene 5. New-onset atrial fibrillation 6. Chronic tobacco use 7. History of daily alcohol use Plan: 1. Consult to infectious disease for antibiotic recommendations 2. Consult to wound care, appreciate their recommendations 3. Keep SANDY drains in place 4. Elevate left lower extremity 5. Consult to PT and OT 6. Consult to case management for possible rehab placement. Patient is high risk for readmission due to noncompliance. 7. Recommend tobacco cessation 8. Recommend alcohol abstinence Thank you for this consultation, we will continue to follow. The impression and plan of care has been dictated as directed. Dr. Inman I performed a history and examination of this patient, discussed the same with the dictator. I agree with the dictator's note ,documented as a scribe. Any additional findings or plans will be noted.
[2023-06-21 11:38] LABS: African American GFR (CKD) >90 (>60 ml/min/1.73 sqM); Anion Gap 6 mmol/L; Blood Urea Nitrogen 11 mg/dL (9-20); Carbon Dioxide 25 mmol/L (22-30); Chloride 104 mmol/L (98-107); Glucose 92 mg/dL (74-99); Non-African American GFR(CKD) >90 (>60 ml/min/1.73 sqM); Potassium 3.7 mmol/L (3.5-5.1); Sodium 135 mmol/L (137-145)
[2023-06-21 11:43] LABS: Vancomycin,Random 15.4 ug/mL
--- NOTE | 2023-06-21 11:50 | P.PN ---
Subjective HISTORY OF PRESENT ILLNESS: This is a 63-year-old male patient previously seen by Dr. Yash Randall in the office in 2020 with past medical history of hypertension, hyperlipidemia, peripheral vascular disease. We have been asked to evaluate the patient for new onset atrial fibrillation. Patient was recently hospitalized 05/29 - 06/08 and seen at that time by cardiology regarding clearance for surgery. Patient subsequently underwent left external iliac artery endarterectomy, femoral artery endarterectomy, popliteal artery endarterectomy and femoral-popliteal artery bypass. Patient returned to the hospital due to drainage from the incision site and gangrene to the left great toe. Patient denies having any chest pain or shortness of breath, no palpitations, no lightheadedness or dizziness. Chest x-ray: No acute process. Venous Doppler duplex of the left lower extremity revealed patent graft. No evidence of DVT. Extensive superficial soft tissue edema. WBC 13.9, hemoglobin 7.8, platelet count 289. INR 1.2. Electrolytes are normal. BUN 9 creatinine 0.65. Iron 14, TIBC 200, saturation 7, transferrin 1.43. proBNP 2670. Alkaline phosphatase 291 otherwise liver function test are normal. Home cardiac medications: Toprol XL 25 mg daily ordered but not been taken, losartan 25 mg daily, atorvastatin 40 mg daily. Toprol has been resumed as a scheduled medication. Lexiscan stress test performed 06/02/2023 revealed no stress induced ischemic changes. Echocardiogram performed 06/01/2023 reveals EF of 55 to 60%. Mild concentric left ventricular hypertrophy. Mild left atrial dilatation. Mild MR. 4/16 Patient is currently in a sinus rhythm and upon review of past EKGs and strips, patient has remained in sinus rhythm with PACs. No sign of atrial fibrillation.. Blood pressure 120/64, heart rate in the 60s and 70s, pulse ox 100% on room air. Repeat blood work reveals WBC 12.4, hemoglobin 8.8. Sodium 138, potassium 4.4, BUN 9.3 and creatinine 0.6. Patient is scheduled for left lower extremity washout and deep tissue cultures with vascular surgery. Heparin drip will be discontinued. 06/21/2023 Patient examined this morning the bedside. Patient denies chest pain or pressure. He denies shortness of breath. Telemetry reveals sinus mechanism. No signs of atrial fibrillation. Vital signs are stable. PHYSICAL EXAM: VITAL SIGNS: Reviewed. GENERAL: Well-developed in no acute distress. NECK: Supple. No JVD or thyromegaly LUNGS: Respirations even and unlabored. Lungs essentially clear to auscultation bilaterally. HEART: Regular rate and rhythm. S1 and S2 heard. EXTREMITIES: Normal range of motion. No clubbing or cyanosis. Dressing and SANDY drains noted to left lower extremity. Left lower extremity with 2-3+ pitting edema. ASSESSMENT: Atrial fibrillation ruled out, telemetry reveals sinus mechanism with PACs Left lower extremity cellulitis serous drainage at surgical site status post washout and antibiotic bead placement Left lower extremity edema, secondary to above Peripheral vascular disease with gangrene left great toe Recent femoropopliteal arterial bypass done on 06/06/2023 Coronary artery disease with previous stenting of the circumflex in 2010 History of endovascular aortic repair in 2019 Hypertension Hyperlipidemia Daily alcohol intake Tobacco use and dependence Medication noncompliance PLAN: Continue current cardiac medications Continue IV Lasix for lower extremity edema Continue telemetry monitoring Further recommendations pending patient course Nurse practitioner note has been reviewed by physician. Signing provider agrees with the documented findings, assessment, and plan of care documented by TEXT[employer] BAG SEWER as a scribe. Objective - Vital Signs Vital signs: Vital Signs Temp 98.1 F 06/21/23 08:00 Pulse 63 06/21/23 08:00 Resp 18 06/21/23 08:00 BP 111/79 06/21/23 08:00 Pulse Ox 98 06/21/23 08:48 FiO2 Intake & Output 06/20/23 06/21/23 06/21/23 18:59 06:59 18:59 Intake Total 801 118 Output Total 920 1080 1000 Balance -119 -1080 -882 Intake: IV 801 Oral 118 Output: Drainage 130 Left Groin 80 Left Thigh 50 Urine 110 026 1198 Estimated Blood Loss 20 Other: Voiding Method External Catheter External Catheter External Catheter # Bowel Movements 2 - Labs CBC & Chem 7: 06/20/23 05:25 06/21/23 10:09 Labs: Abnormal Lab Results - Last 24 Hours (Table) 06/18/23 06/21/23 Range/Units 13:02 10:09 Hgb 9.4 L D (13.0-17.5) gm/dL MCV 112.5 H D (80.0-100.0) fL Sodium 135 L (137-145) mmol/L Calcium 8.0 L (8.4-10.2) mg/dL Microbiology - Last 24 Hours (Table) 06/19/23 11:57 Gram Stain - Final Groin Wound Culture - Final Staphylococcus aureus 06/18/23 13:20 Blood Culture - Preliminary Blood 06/18/23 13:24 Blood Culture - Preliminary Blood
[2023-06-21 12:24] LABS: Anisocytosis Slight; Basophils # (A) 0.1 k/uL (0-0.2); Basophils % (A) 1 %; Eosinophils # (A) 0.3 k/uL (0-0.7); Eosinophils % (A) 2 %; HCT 35.4 % (39.0-53.0); HGB 9.9 gm/dL (13.0-17.5); Hypochromasia Marked; Lymphocytes % (A) 7 %; MCV 121.4 fL (80.0-100.0); Macrocytosis Marked; Mean Platelet Volume 9.4; Monocytes # (A) 0.8 k/uL (0-1.0); Monocytes % (A) 5 %; Neutrophils # (A) 12.8 k/uL (1.3-7.7); Neutrophils % (A) 84 %; Platelet Count 439 k/uL (150-450); RBC 2.91 m/uL (4.30-5.90); RDW 17.3 % (11.5-15.5); WBC 15.3 k/uL (3.8-10.6)
--- NOTE | 2023-06-21 22:26 | P.CONS ---
History of Present Illness - Reason for Consult Consult date: 06/21/23 - History of Present Illness Patient is a 63-year-old male with a past medical history significant for hypertension hyperlipidemia [place] coronary artery disease as well as peripheral arterial disease in this patient who did have a gangrene to the left big toe in this patient who is status post left external iliac femoral and popliteal artery endarterectomy with patch angioplasty as well as femoral to the popliteal artery bypass in situ graft completed on 06/06/2023 and the patient was discharged home on 06/09/2023 patient is presenting back to the hospital on 06/18/2023 complaining of increasing pain and discomfort to the left groin area patient is currently being to be sharp moderate to severe intensity with some radiation down the right lower leg with associated swelling redness and increasing drainage patient on presentation to the hospital was afebrile and no fever have recorded subsequently patient was not tachycardic hypotensive or hypoxic he did have white count 13.4 creatinine has been normal blood culture of fluid has been negative (culture growing MSSA patient did have a excisional debridement and washout of the ingrown and lower leg incision and placement of antibiotic beads and drain by vascular surgery yesterday infectious he was consulted today for further management of antibiotic therapy Past Medical History Past Medical History: Coronary Artery Disease (CAD), Chest Pain / Angina, GERD/Reflux, Hyperlipidemia, Hypertension, Myocardial Infarction ([place]) Additional Past Medical History / Comment(s): AAA. Hx gout. HX FX LT Ankle 05/2017. POSS HERNIA IN ABD. Last Myocardial Infarction Date:: 2010 History of Any Multi-Drug Resistant Organisms: None Reported Past Surgical History: Heart Catheterization With Stent, Orthopedic Surgery Additional Past Surgical History / Comment(s): LT WRIST SX, UNSURE IF ANY METAL PLACED. Lt.ankle surgery, 11 screws. Stent x1. EXPLORATORY LAPAROTOMY 01/19/18, UNABLE TO REPAIR AAA. Stent to Abdominal Aortic Aneurysm 2022. Past Anesthesia/Blood Transfusion Reactions: Previous Problems w/ Anesthesia Additional Past Anesthesia/Blood Transfusion Reaction / Comm: "Takes a lot to put him out." Date of Last Stent Placement:: 2010 Past Psychological History: Anxiety Additional Psychological History / Comment(s): . Smoking Status: Current every day smoker Past Alcohol Use History: Daily Past Drug Use History: Marijuana Additional Drug Use History / Comment(s): Uses marijuana daily, half a joint. Instructed to hold 24 hrs prior to procedure - Past Family History Father Family Medical History: Cancer Additional Family Medical History / Comment(s): AGE 72 [place] CA W/ METS Mother Family Medical History: Hypertension Medications and Allergies Home Medications Medication Instructions Recorded Confirmed Type Metoprolol Succinate (ER) [Toprol 25 mg PO DAILY PRN 05/30/23 06/18/23 History XL] Atorvastatin [Lipitor] 40 mg PO HS #30 tab 06/09/23 06/18/23 Rx Losartan [Cozaar] 25 mg PO DAILY #30 tab 06/09/23 06/18/23 Rx Pantoprazole Sodium [Protonix] 40 mg PO DAILY #30 tab 06/09/23 06/18/23 Rx Allergies Allergy/AdvReac Type Severity Reaction Status Date / Time No Known Allergies Allergy Verified 06/18/23 16:26 Physical Exam Vitals: Vital Signs Temp Pulse Pulse Resp BP BP Pulse Ox 06/21/23 08:48 98 06/21/23 08:00 98.1 F 65 63 18 111/79 99 06/21/23 04:00 98.3 F 63 19 114/72 96 06/21/23 02:00 98.4 F 62 19 114/72 100 06/20/23 20:00 98.8 F 66 19 129/74 98 06/20/23 19:15 67 14 113/69 100 06/20/23 19:00 67 14 129/64 98 06/20/23 18:43 71 14 126/74 99 06/20/23 18:28 66 14 108/60 99 06/20/23 18:13 67 14 103/63 98 06/20/23 17:58 97.3 F L 64 14 114/64 99 06/20/23 16:11 62 16 117/74 06/20/23 12:47 98.4 F 68 20 123/78 100 Intake and Output 06/20/23 06/21/23 06/21/23 22:59 06:59 14:59 Intake Total 801 118 Output Total 320 1080 1000 Balance 555 -7949 -076 Intake: IV 801 Oral 118 Output: Drainage 130 Left Groin 80 Left Thigh 50 Urine 446 175 2368 Estimated Blood Loss 20 Other: Voiding Method External Catheter External Catheter External Catheter Results CBC & Chem 7: 06/21/23 10:09 06/21/23 10:09 Labs: Abnormal Lab Results - Last 24 Hours (Table) 06/18/23 06/20/23 Range/Units 13:02 05:25 Hgb 9.4 L D (13.0-17.5) gm/dL MCV 112.5 H D (80.0-100.0) fL PT 13.5 H (9.9-11.9) sec INR 1.27 H (0.93-1.11) sec Microbiology - Last 24 Hours (Table) 06/19/23 11:57 Gram Stain - Final Groin Wound Culture - Final Staphylococcus aureus 06/18/23 13:20 Blood Culture - Preliminary Blood 06/18/23 13:24 Blood Culture - Preliminary Blood Assessment and Plan Plan: 1patient admitted to the hospital with left groin pain and swelling redness and drainage in this patient who did have a history of gangrene to the left big toe with a recent extensive surgical intervention including endarterectomy as well as femoral to popliteal artery bypass graft now with evidence of surgical site infection of the left groin area status post surgical debridement local culture positive for MSSA blood culture has been negative 2-discontinue vancomycin 3-start the patient on cefazolin 2 g every 8 hours 4-patient will likely need a PICC line for outpatient IV antibiotic therapy keep ing mind extensive infection Question concern also would We will follow on clinical condition and cultures to further adjust medication if needed Thank you for this consultation we will follow the patient along with you Dictation was produced using [employer] dictation software. please excuse any gramma tical, word or spelling errors. Time with Patient: Greater than 30
--- NOTE | 2023-06-22 12:37 | P.PN ---
Subjective Progress Note Date: 06/22/23 Patient seen and examined today as a follow-up. He is status post excisional debridement and washout of groin incision and lower leg incisions with placement of antibiotic beads and SANDY drains. He states he is doing well overall. Denies any fevers or chills. Pain is well-managed. SANDY drains in place with serosanguineous drainage. Order for PICC line is placed. Patient is agreeable to subacute rehab on discharge. Objective - Vital Signs Vital signs: Vital Signs Temp 97.3 F L 06/22/23 08:30 Pulse 62 06/22/23 08:30 Resp 16 06/22/23 08:30 BP 112/73 06/22/23 08:30 Pulse Ox 100 06/22/23 08:30 FiO2 Intake & Output 06/21/23 06/22/23 06/22/23 18:59 06:59 18:59 Intake Total 358 120 Output Total 1060 770 Balance -702 -770 120 Intake: Oral 358 120 Output: Drainage 60 170 Left Groin 55 80 Left Thigh 5 90 Urine 1000 600 Other: Voiding Method External Catheter External Catheter External Catheter - Exam General appearance: The patient is alert, oriented, appears in no acute distress. HET: Head is normocephalic and atraumatic. Pupils are equal and reactive. Neck: Supple. Abdomen: Soft, nondistended. Extremities: Bilateral lower extremity edema. Left groin with sutures well- approximated. SANDY drain in place with suture intact. With serosanguineous drainage. Left lower extremity incisions well-approximated with sutures. Some mild erythema. SANDY drain in place with approximately 20 cc serosanguineous drainage. Lower extremity warm with good capillary refill. Neurological: No focal deficits. Strength and sensation are grossly intact. - Labs CBC & Chem 7: 06/21/23 10:09 06/21/23 10:09 Labs: Abnormal Lab Results - Last 24 Hours (Table) 06/21/23 06/21/23 Range/Units 10:09 10:09 WBC 15.3 H (3.8-10.6) k/uL RBC 2.91 L (4.30-5.90) m/uL Hgb 9.9 L (13.0-17.5) gm/dL Hct 35.4 L (39.0-53.0) % MCV 121.4 H (80.0-100.0) fL MCHC 28.0 L (31.0-37.0) g/dL RDW 17.3 H (11.5-15.5) % Neutrophils # 12.8 H (1.3-7.7) k/uL Macrocytosis Marked A Sodium 135 L (137-145) mmol/L Calcium 8.0 L (8.4-10.2) mg/dL Microbiology - Last 24 Hours (Table) 06/20/23 17:04 Gram Stain - Preliminary Leg - Left Wound Culture - Preliminary Presumptive Staph aureus 06/20/23 17:04 Gram Stain - Preliminary Groin Wound Culture - Preliminary Presumptive Staph aureus 06/18/23 13:20 Blood Culture - Preliminary Blood 06/18/23 13:24 Blood Culture - Preliminary Blood 06/19/23 11:57 Anaerobic Culture - Preliminary Groin 06/19/23 11:57 Gram Stain - Final Groin Wound Culture - Final Staphylococcus aureus Assessment and Plan Assessment: 1. Dehiscence of surgical incision secondary to edema with infected surgical incision site status post debridement and washout with antibiotic beads placed and SANDY drains placed 2. History of peripheral arterial disease status post left external iliac, femoral and popliteal artery endarterectomy with patch angioplasty, as well as left femoral to popliteal artery bypass with in situ vein graft 3. Peripheral arterial disease 4. Left great toe dry gangrene 5. New-onset atrial fibrillation 6. Chronic tobacco use 7. History of daily alcohol use Plan: 1. Consult to infectious disease for antibiotic recommendations 2. Consult to wound care, appreciate their recommendations 3. Keep SANDY drains in place 4. Elevate left lower extremity 5. Consult to PT and OT 6. Consult to case management for possible rehab placement. Patient is high risk for readmission due to noncompliance. 7. Recommend tobacco cessation 8. Recommend alcohol abstinence 9. Patient is cleared from vascular surgery for discharge. Will plan for PICC line placement tomorrow prior to discharge. Thank you for this consultation, we will continue to follow. The impression and plan of care has been dictated as directed. Dr. Inman I performed a history and examination of this patient, discussed the same with the dictator. I agree with the dictator's note ,documented as a scribe. Any additional findings or plans will be noted.
--- NOTE | 2023-06-22 12:57 | P.PN ---
Subjective HISTORY OF PRESENT ILLNESS: This is a 63-year-old male patient previously seen by Dr. Yash Randall in the office in 2020 with past medical history of hypertension, hyperlipidemia, peripheral vascular disease. We have been asked to evaluate the patient for new onset atrial fibrillation. Patient was recently hospitalized 05/29 - 06/08 and seen at that time by cardiology regarding clearance for surgery. Patient subsequently underwent left external iliac artery endarterectomy, femoral artery endarterectomy, popliteal artery endarterectomy and femoral-popliteal artery bypass. Patient returned to the hospital due to drainage from the incision site and gangrene to the left great toe. Patient denies having any chest pain or shortness of breath, no palpitations, no lightheadedness or dizziness. Chest x-ray: No acute process. Venous Doppler duplex of the left lower extremity revealed patent graft. No evidence of DVT. Extensive superficial soft tissue edema. WBC 13.9, hemoglobin 7.8, platelet count 289. INR 1.2. Electrolytes are normal. BUN 9 creatinine 0.65. Iron 14, TIBC 200, saturation 7, transferrin 1.43. proBNP 2670. Alkaline phosphatase 291 otherwise liver function test are normal. Home cardiac medications: Toprol XL 25 mg daily ordered but not been taken, losartan 25 mg daily, atorvastatin 40 mg daily. Toprol has been resumed as a scheduled medication. Lexiscan stress test performed 06/02/2023 revealed no stress induced ischemic changes. Echocardiogram performed 06/01/2023 reveals EF of 55 to 60%. Mild concentric left ventricular hypertrophy. Mild left atrial dilatation. Mild MR. 4/16 Patient is currently in a sinus rhythm and upon review of past EKGs and strips, patient has remained in sinus rhythm with PACs. No sign of atrial fibrillation.. Blood pressure 120/64, heart rate in the 60s and 70s, pulse ox 100% on room air. Repeat blood work reveals WBC 12.4, hemoglobin 8.8. Sodium 138, potassium 4.4, BUN 9.3 and creatinine 0.6. Patient is scheduled for left lower extremity washout and deep tissue cultures with vascular surgery. Heparin drip will be discontinued. 06/21/2023 Patient examined this morning the bedside. Patient denies chest pain or pressure. He denies shortness of breath. Telemetry reveals sinus mechanism. No signs of atrial fibrillation. Vital signs are stable. 06/22/2023 Patient examined this morning. Patient is sitting up in the chair. Patient denies chest pain or pressure. He denies shortness of breath. Vital signs are stable. He remains on IV Lasix for lower extremity edema. PHYSICAL EXAM: VITAL SIGNS: Reviewed. GENERAL: Well-developed in no acute distress. NECK: Supple. No JVD or thyromegaly LUNGS: Respirations even and unlabored. Lungs essentially clear to auscultation bilaterally. HEART: Regular rate and rhythm. S1 and S2 heard. EXTREMITIES: Normal range of motion. No clubbing or cyanosis. Dressing and SANDY drains noted to left lower extremity. Left lower extremity with 2+ pitting edema. ASSESSMENT: Atrial fibrillation ruled out, telemetry reveals sinus mechanism with PACs Left lower extremity cellulitis serous drainage at surgical site status post washout and antibiotic bead placement Left lower extremity edema, secondary to above Peripheral vascular disease with gangrene left great toe Recent femoropopliteal arterial bypass done on 06/06/2023 Coronary artery disease with previous stenting of the circumflex in 2010 History of endovascular aortic repair in 2019 Hypertension Hyperlipidemia Daily alcohol intake Tobacco use and dependence Medication noncompliance PLAN: Continue current cardiac medications Continue IV Lasix for lower extremity edema. Transition to oral diuretics upon discharge. Continue telemetry monitoring Patient may be transferred to [facility] unit from a cardiac standpoint Further recommendations pending patient course Nurse practitioner note has been reviewed by physician. Signing provider agrees with the documented findings, assessment, and plan of care documented by STONE GRADER as a scribe. Objective - Vital Signs Vital signs: Vital Signs Temp 97.8 F 06/22/23 12:00 Pulse 65 06/22/23 12:00 Resp 18 06/22/23 12:00 BP 136/65 06/22/23 12:00 Pulse Ox 96 06/22/23 12:00 FiO2 Intake & Output 06/21/23 06/22/23 06/22/23 18:59 06:59 18:59 Intake Total 358 120 Output Total 1060 770 Balance -702 -770 120 Intake: Oral 358 120 Output: Drainage 60 170 Left Groin 55 80 Left Thigh 5 90 Urine 1000 600 Other: Voiding Method External Catheter External Catheter External Catheter - Labs CBC & Chem 7: 06/21/23 10:09 06/21/23 10:09 Labs: Microbiology - Last 24 Hours (Table) 06/20/23 17:04 Gram Stain - Preliminary Leg - Left Wound Culture - Preliminary Presumptive Staph aureus 06/20/23 17:04 Gram Stain - Preliminary Groin Wound Culture - Preliminary Presumptive Staph aureus 06/18/23 13:20 Blood Culture - Preliminary Blood 06/18/23 13:24 Blood Culture - Preliminary Blood 06/19/23 11:57 Anaerobic Culture - Preliminary Groin 06/19/23 11:57 Gram Stain - Final Groin Wound Culture - Final Staphylococcus aureus
--- NOTE | 2023-06-22 15:02 | P.PN ---
Subjective Progress Note Date: 06/22/23 Principal diagnosis: Reason for follow-up is left lower extremity wound and cellulitis Patient is a 63-year-old male with a past medical history significant for hypertension hyperlipidemia NM coronary artery disease as well as peripheral arterial disease in this patient who did have a gangrene to the left big toe in this patient who is status post left external iliac femoral and popliteal artery endarterectomy with patch angioplasty as well as femoral to the popliteal artery bypass in situ graft completed on 06/06/2023, readmitted to hospital worsening drainage in this patient who status post debridement of the wound culture positive for MSSA. On today's evaluation that is 06/22/2023, patient has been afebrile, patient is breathing comfortably and is currently on room air, patient denies having any significant cough no chest pain shortness of breath, patient denies nausea vomiting or diarrhea and no abdominal pain pain to the left lower extremity slightly decreased in intensity. Patient white count is 15.3 today, creatinine 0.66 Vanco random 15.4 local cu lture with MSSA blood cultures so far negative Objective - Vital Signs Vital signs: Vital Signs Temp 97.3 F L 06/22/23 08:30 Pulse 62 06/22/23 08:30 Resp 16 06/22/23 08:30 BP 112/73 06/22/23 08:30 Pulse Ox 100 06/22/23 08:30 FiO2 Intake & Output 06/21/23 06/22/23 06/22/23 18:59 06:59 18:59 Intake Total 358 120 Output Total 1060 770 Balance -702 -770 120 Intake: Oral 358 120 Output: Drainage 60 170 Left Groin 55 80 Left Thigh 5 90 Urine 1000 600 Other: Voiding Method External Catheter External Catheter External Catheter - Exam GENERAL DESCRIPTION: Middle-age male lying in bed in no distress RESPIRATORY SYSTEM: Unlabored breathing , decreased breath sounds at bases HEART: S1 S2 regular rate and rhythm , ABDOMEN: Soft , no tenderness EXTREMITIES: Left lower extremity significant swelling with redness around incision minimal drainage - Labs CBC & Chem 7: 06/21/23 10:09 06/21/23 10:09 Labs: Abnormal Lab Results - Last 24 Hours (Table) 06/21/23 06/21/23 Range/Units 10:09 10:09 WBC 15.3 H (3.8-10.6) k/uL RBC 2.91 L (4.30-5.90) m/uL Hgb 9.9 L (13.0-17.5) gm/dL Hct 35.4 L (39.0-53.0) % MCV 121.4 H (80.0-100.0) fL MCHC 28.0 L (31.0-37.0) g/dL RDW 17.3 H (11.5-15.5) % Neutrophils # 12.8 H (1.3-7.7) k/uL Macrocytosis Marked A Sodium 135 L (137-145) mmol/L Calcium 8.0 L (8.4-10.2) mg/dL Microbiology - Last 24 Hours (Table) 06/20/23 17:04 Gram Stain - Preliminary Leg - Left Wound Culture - Preliminary Presumptive Staph aureus 06/20/23 17:04 Gram Stain - Preliminary Groin Wound Culture - Preliminary Presumptive Staph aureus 06/18/23 13:20 Blood Culture - Preliminary Blood 06/18/23 13:24 Blood Culture - Preliminary Blood 06/19/23 11:57 Anaerobic Culture - Preliminary Groin 06/19/23 11:57 Gram Stain - Final Groin Wound Culture - Final Staphylococcus aureus Assessment and Plan (1) Wound of left lower extremity Current Visit: Yes Status: Acute Code(s): S81.802A - UNSPECIFIED OPEN WOUND, LEFT LOWER LEG, INITIAL ENCOUNTER SNOMED Code(s): 05021646359927119 (2) Left leg cellulitis Current Visit: Yes Status: Acute Code(s): L03.116 - CELLULITIS OF LEFT LOWER LIMB SNOMED Code(s): 31990456157956874 (3) MSSA (methicillin susceptible Staphylococcus aureus) infection Current Visit: Yes Status: Acute Code(s): A49.01 - METHICILLIN SUSCEP STAPH INFECTION, UNSP SITE SNOMED Code(s): 934125448 (4) Gangrene of toe of left foot Current Visit: Yes Status: Acute Code(s): I96 - GANGRENE, NOT ELSEWHERE CLASSIFIED SNOMED Code(s): 91392774855194649 Plan: 1patient admitted to the hospital with left groin pain and swelling redness and drainage in this patient who did have a history of gangrene to the left big toe with a recent extensive surgical intervention including endarterectomy as well as femoral to popliteal artery bypass graft now with evidence of surgical site infection of the left groin area status post surgical debridement local culture positive for MSSA blood culture has been negative 2-patient to continue with cefazolin 2 g every 8 hours, PICC has been ordered for outpatient IV antibiotics, white count is slightly up today and need to be monitored closely Dictation was produced using [employer] dictation software. please excuse any grammatical, word or spelling errors. Time with Patient: Less than 30
--- NOTE | 2023-06-22 19:54 | P.PN ---
Subjective Progress Note Date: 06/21/23 06/19/2023 this is a 63-year-old gentleman discharged 06/09/2023 with PAD, left great toe dry gangrene , status post external iliac, femoral and popliteal artery endarterectomy with patch angioplasty and left femoral popliteal artery bypass with in situ vein graft, returning with infected surgical site infect ions. Reports over the last week having purulent drainage from surgical sites, did not notify PCP nor vascular surgery. Denies fevers or chills. Denies chest pain, palpitations or shortness of breath. 06/20/2023 NPO, washout with deep tissue biopsies scheduled for today. Wound culture reporting presumptive staph aures. Continues on vancomycin. Renal function stable. Afebrile, WBC trending down 12.4. Reevaluated by cardiology, EKG reviewed, no atrial fibrillation. 06/21/2023 yesterday underwent I&D with washout; antibiotic beads, SANDY drains to the left groin and left medial calf placed. Tolerated procedure well. Evaluated by wound care team with recommendations noted. vancomycin discontinued cefazolin initiated as per infectious disease. Afebrile, WBC increased to 15.3. Objective - Vital Signs Vital signs: Vital Signs Temp 98 F 06/21/23 12:00 Pulse 63 06/21/23 12:27 Resp 18 06/21/23 12:00 BP 109/74 06/21/23 12:00 Pulse Ox 98 06/21/23 12:00 FiO2 Intake & Output 06/20/23 06/21/23 06/21/23 18:59 06:59 18:59 Intake Total 801 118 Output Total 920 1080 1000 Balance -119 -1080 -882 Intake: IV 801 Oral 118 Output: Drainage 130 Left Groin 80 Left Thigh 50 Urine 692 043 2570 Estimated Blood Loss 20 Other: Voiding Method External Catheter External Catheter External Catheter # Bowel Movements 2 - Exam PHYSICAL EXAM: VITAL SIGNS: [As above] GENERAL: Alert and oriented x 3, sitting up in chair, no acute distress. HEENT: Normocephalic. Conjunctivae normal. eyes normal. NECK: Supple, no JVD. CARDIOVASCULAR: S1, S2 regular.No murmur RESPIRATION: Unlabored, equal air entry,essentially clear with bilateral bases diminished. ABDOMEN: Soft, nontender . No guarding. Positive bowel sounds. EXTREMITIES: Left great toe dry gangrene, stage II left heel pressure ulcer, SANDY drains x 2 with serosanguineous drainage -1 to the groin and 1 to the left medial calf, dressings clean dry and intact. NERVOUS SYSTEM: Cranial N 2-12 grossly normal. No focal deficits. Strength and sensation grossly intact. Skin: Warm and dry, no rash - Labs CBC & Chem 7: 06/21/23 10:09 06/21/23 10:09 Labs: Abnormal Lab Results - Last 24 Hours (Table) 06/18/23 06/21/23 06/21/23 Range/Units 13:02 10:09 10:09 WBC 15.3 H (3.8-10.6) k/uL RBC 2.91 L (4.30-5.90) m/uL Hgb 9.4 L D 9.9 L (13.0-17.5) gm/dL Hct 35.4 L (39.0-53.0) % MCV 112.5 H D 121.4 H (80.0-100.0) fL MCHC 28.0 L (31.0-37.0) g/dL RDW 17.3 H (11.5-15.5) % Neutrophils # 12.8 H (1.3-7.7) k/uL Macrocytosis Marked A Sodium 135 L (137-145) mmol/L Calcium 8.0 L (8.4-10.2) mg/dL Microbiology - Last 24 Hours (Table) 06/19/23 11:57 Anaerobic Culture - Preliminary Groin 06/20/23 17:04 Gram Stain - Preliminary Leg - Left 06/20/23 17:04 Gram Stain - Preliminary Groin 06/19/23 11:57 Gram Stain - Final Groin Wound Culture - Final Staphylococcus aureus 06/18/23 13:20 Blood Culture - Preliminary Blood 06/18/23 13:24 Blood Culture - Preliminary Blood Assessment and Plan Assessment: Infected, dehisced surgical incision sites in a patient with history of PAD, le ft great toe dry gangrene, recent external iliac, femoral and popliteal artery endarterectomy with patch angioplasty and left femoral popliteal artery bypass with in situ vein graft. Preliminary wound cultures reporting presumptive staph aures. Status post I&D with washout. Stage II pressure ulcer left heel History of aortic aneurysm with endovascular repair; Not new onset proximal atrial fibrillation as per further review by cardiology. CAD, history of stent placement Essential hypertension Hyperlipidemia Nicotine dependence Daily alcohol use Noncompliance with medication regimen Hypokalemia, resolved with supplementation. Iron deficient anemia Plan: Continue on current medication regimen ,monitoring and symptomatic treatment. IV antibiotics as per infectious disease .evaluated by wound care with recommendations noted and appreciated .patient requires advanced wound care and likely IV antibiotics. PT/OT/CM consulted for subacute rehab at discharge. Wound cultures Finalizing. Smoking sensation reinforced. Alcohol abstinence reinforced. The impression and plan of care has been dictated as directed. : I performed a history and examination of this patient, discussed the same with the dictator. I agree with the dictator's note ,documented as a scribe. Any additional findings or plans will be noted.
--- NOTE | 2023-06-22 20:10 | P.PN ---
Subjective Progress Note Date: 06/22/23 06/19/2023 this is a 63-year-old gentleman discharged 06/09/2023 with PAD, left great toe dry gangrene , status post external iliac, femoral and popliteal artery endarterectomy with patch angioplasty and left femoral popliteal artery bypass with in situ vein graft, returning with infected surgical site infect ions. Reports over the last week having purulent drainage from surgical sites, did not notify PCP nor vascular surgery. Denies fevers or chills. Denies chest pain, palpitations or shortness of breath. 06/20/2023 NPO, washout with deep tissue biopsies scheduled for today. Wound culture reporting presumptive staph aures. Continues on vancomycin. Renal function stable. Afebrile, WBC trending down 12.4. Reevaluated by cardiology, EKG reviewed, no atrial fibrillation. 06/21/2023 yesterday underwent I&D with washout; antibiotic beads, SANDY drains to the left groin and left medial calf placed. Tolerated procedure well. Evaluated by wound care team with recommendations noted. vancomycin discontinued cefazolin initiated as per infectious disease. Afebrile, WBC increased to 15.3. 06/22/2023 afebrile ,maintained on IV antibiotics as per ID. PICC line ordered. Local wound culture reporting MSSA , preliminary blood cultures reporting no growth. Diuresing well on Lasix IV push with 24-hour WOLF reflecting a negative fluid balance. denies chest pain, palpitations or shortness of breath. Objective - Vital Signs Vital signs: Vital Signs Temp 97.4 F L 06/22/23 16:41 Pulse 62 06/22/23 16:41 Resp 19 06/22/23 16:41 BP 127/58 06/22/23 16:41 Pulse Ox 100 06/22/23 16:41 FiO2 Intake & Output 06/22/23 06/22/23 06/23/23 06:59 18:59 06:59 Intake Total 840 Output Total 770 1445 Balance -770 -605 Intake: Oral 840 Output: Drainage 170 95 Left Groin 80 75 Left Thigh 90 20 Urine 600 1350 Other: Voiding Method External Catheter External Catheter - Exam PHYSICAL EXAM: VITAL SIGNS: [As above] GENERAL: Alert and oriented x 3, sitting up in bed, no acute distress. HEENT: Normocephalic. Conjunctivae normal. eyes normal. NECK: Supple, no JVD. CARDIOVASCULAR: S1, S2 regular.No murmur RESPIRATION: Unlabored, equal air entry,CTA, bilateral bases diminished. ABDOMEN: Soft, nontender . No guarding. Positive bowel sounds. EXTREMITIES: Left lower extremity edema , left great toe dry gangrene, stage II left heel pressure ulcer, SANDY drains x 2 with serosanguineous drainage -1 to the groin and 1 to the left medial calf, dressings clean dry and intact. NERVOUS SYSTEM: Cranial N 2-12 grossly normal. No focal deficits. Strength and sensation grossly intact. Skin: Warm and dry, no rash - Labs CBC & Chem 7: 06/21/23 10:09 06/21/23 10:09 Labs: Microbiology - Last 24 Hours (Table) 06/20/23 17:04 Gram Stain - Preliminary Leg - Left Wound Culture - Preliminary Presumptive Staph aureus 06/20/23 17:04 Gram Stain - Preliminary Groin Wound Culture - Preliminary Presumptive Staph aureus 06/18/23 13:20 Blood Culture - Preliminary Blood 06/18/23 13:24 Blood Culture - Preliminary Blood Assessment and Plan Assessment: Infected, dehisced surgical incision sites in a patient with history of PAD, left great toe dry gangrene, recent external iliac, femoral and popliteal artery endarterectomy with patch angioplasty and left femoral popliteal artery bypass with in situ vein graft. Preliminary wound cultures reporting presumptive staph aures. Status post I&D with washout. MSSA reported per local wound culture. Stage II pressure ulcer left heel History of aortic aneurysm with endovascular repair; Not new onset proximal atrial fibrillation as per further review by cardiology. CAD, history of stent placement Essential hypertension Hyperlipidemia Nicotine dependence Daily alcohol use Noncompliance with medication regimen Hypokalemia, resolved with supplementation. Iron deficient anemia Plan: Continue on current medication regimen ,monitoring and symptomatic treatment. Transfer to [facility] .PICC line ordered for IV antibiotics at [facility] as per infectious disease. Wound cultures Finalizing. Discharge planning in progress for subacute rehab. tomorrow. smoking sensation reinforced. Alcohol abstinence reinforced. The impression and plan of care has been dictated as directed. : I performed a history and examination of this patient, discussed the same with the dictator. I agree with the dictator's note ,documented as a scribe. Any additional findings or plans will be noted.
[2023-06-22] MEDS: POTASSIUM CHLORIDE ER 20 MEQ TAB.ER PO STA (21:25)
[2023-06-23] MEDS: LIDOCAINE 2% (PF) 20 MG/ML 5 ML VIAL SQ ONE (07:44)
--- NOTE | 2023-06-23 07:54 | P.PCN ---
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 The area of the left arm was prepped and draped in usual sterile fashion. Timeout was performed in normal fashion. Utilizing ultrasound the basilic vein was visualized and shown to be compressible without any visible thrombus. Under ultrasound guidance the basilic vein was then cannulated with a micropuncture needle and wire was placed under direct visualization of fluoroscopy. Introducer sheath was then placed. The catheter was measured and cut to the appropriate length which was 45 cm. The catheter was then guided through the breakaway sheath and the sheath was removed with good positioning was visualized under fluoroscopy. The catheter was pulled and flushed easily. It was then secured in place in normal fashion. Patient tolerated the procedure well was sent back to his room for recovery.
--- NOTE | 2023-06-23 08:32 | IR ---
EXAMINATION TYPE: IR cvc insert >=5 years Intraoperative/procedural fluoroscopic services were provid ed. CLINICAL INDICATION:Male, 63 years old with history of Abx, 0.3m/0.4913DAP, 4F 45cm lt basilic PICC; , [facility] Total fluoroscopy time is 0.3 min. DAP: 49.13 uGym2 Please see the operative/procedural note for further details.
--- NOTE | 2023-06-23 09:48 | P.PN ---
Subjective Progress Note Date: 06/23/23 Can seen and examined today as a follow-up. He PICC line was placed today. Remains afebrile. Pain has been well-managed. He is scheduled for discharge today to subacute rehab. Objective - Vital Signs Vital signs: Vital Signs Temp 98.1 F 06/23/23 08:50 Pulse 68 06/23/23 08:50 Resp 17 06/23/23 08:50 BP 124/70 06/23/23 08:50 Pulse Ox 97 06/23/23 08:50 FiO2 Intake & Output 06/22/23 06/23/23 06/23/23 18:59 06:59 18:59 Intake Total 840 240 Output Total 1445 610 600 Balance -605 -610 -360 Intake: Oral 840 240 Output: Drainage 95 60 Left Groin 75 45 Left Thigh 20 15 Urine 1350 550 600 Other: Voiding Method External Catheter External Catheter - Exam General appearance: The patient is alert, oriented, appears in no acute distress. HET: Head is normocephalic and atraumatic. Pupils are equal and reactive. Neck: Supple. Abdomen: Soft, nondistended. Extremities: Bilateral lower extremity edema. Left groin with sutures well- approximated. SANDY drain in place with suture intact. With serosanguineous drai nage. Left lower extremity incisions well-approximated with sutures. Some mild erythema. SANDY drain in place with approximately 20 cc serosanguineous drainage. Lower extremity warm with good capillary refill. Neurological: No focal deficits. Strength and sensation are grossly intact. - Labs CBC & Chem 7: 06/21/23 10:09 06/21/23 10:09 Labs: Microbiology - Last 24 Hours (Table) 06/20/23 17:04 Gram Stain - Preliminary Leg - Left Wound Culture - Preliminary Presumptive Staph aureus 06/20/23 17:04 Gram Stain - Preliminary Groin Wound Culture - Preliminary Presumptive Staph aureus Assessment and Plan Assessment: 1. Dehiscence of surgical incision secondary to edema with infected surgical incision site status post debridement and washout with antibiotic beads placed and SANDY drains placed 2. History of peripheral arterial disease status post left external iliac, femoral and popliteal artery endarterectomy with patch angioplasty, left femoral to popliteal artery bypass with in situ vein graft 3. Peripheral arterial disease 4. Left great toe dry gangrene 5. New-onset atrial fibrillation 6. Chronic tobacco use 7. History of daily alcohol use Plan: 1. Consult to infectious disease for antibiotic recommendations 2. Consult to wound care, appreciate their recommendations 3. Keep SANDY drains in place 4. Elevate left lower extremity 5. Consult to PT and OT 6. Consult to case management for possible rehab placement. Patient is high risk for readmission due to noncompliance. 7. Recommend tobacco cessation 8. Recommend alcohol abstinence 9. PICC line placed today. Patient is cleared from vascular surgery for juani gutierrez. Thank you for this consultation, we will sign off at this time. Patient to follow-up with vascular surgery in 1 week. The impression and plan of care has been dictated as directed. Dr. Inman I performed a history and examination of this patient, discussed the same with the dictator. I agree with the dictator's note ,documented as a scribe. Any additional findings or plans will be noted.
--- NOTE | 2023-06-23 09:57 | P.PN ---
Subjective HISTORY OF PRESENT ILLNESS: This is a 63-year-old male patient previously seen by Dr. Yash Randall in the office in 2020 with past medical history of hypertension, hyperlipidemia, peripheral vascular disease. We have been asked to evaluate the patient for new onset atrial fibrillation. Patient was recently hospitalized 05/29 - 06/08 and seen at that time by cardiology regarding clearance for surgery. Patient subsequently underwent left external iliac artery endarterectomy, femoral artery endarterectomy, popliteal artery endarterectomy and femoral-popliteal artery bypass. Patient returned to the hospital due to drainage from the incision site and gangrene to the left great toe. Patient denies having any chest pain or shortness of breath, no palpitations, no lightheadedness or dizziness. Chest x-ray: No acute process. Venous Doppler duplex of the left lower extremity revealed patent graft. No evidence of DVT. Extensive superficial soft tissue edema. WBC 13.9, hemoglobin 7.8, platelet count 289. INR 1.2. Electrolytes are normal. BUN 9 creatinine 0.65. Iron 14, TIBC 200, saturation 7, transferrin 1.43. proBNP 2670. Alkaline phosphatase 291 otherwise liver function test are normal. Home cardiac medications: Toprol XL 25 mg daily ordered but not been taken, losartan 25 mg daily, atorvastatin 40 mg daily. Toprol has been resumed as a scheduled medication. Lexiscan stress test performed 06/02/2023 revealed no stress induced ischemic changes. Echocardiogram performed 06/01/2023 reveals EF of 55 to 60%. Mild concentric left ventricular hypertrophy. Mild left atrial dilatation. Mild MR. 4/16 Patient is currently in a sinus rhythm and upon review of past EKGs and strips, patient has remained in sinus rhythm with PACs. No sign of atrial fibrillation.. Blood pressure 120/64, heart rate in the 60s and 70s, pulse ox 100% on room air. Repeat blood work reveals WBC 12.4, hemoglobin 8.8. Sodium 138, potassium 4.4, BUN 9.3 and creatinine 0.6. Patient is scheduled for left lower extremity washout and deep tissue cultures with vascular surgery. Heparin drip will be discontinued. 06/21/2023 Patient examined this morning the bedside. Patient denies chest pain or pressure. He denies shortness of breath. Telemetry reveals sinus mechanism. No signs of atrial fibrillation. Vital signs are stable. 06/22/2023 Patient examined this morning. Patient is sitting up in the chair. Patient denies chest pain or pressure. He denies shortness of breath. Vital signs are stable. He remains on IV Lasix for lower extremity edema. 06/23/2023 Patient examined this morning at the bedside. Patient denies chest pain or pressure. He denies shortness of breath. Vital signs are stable. He remains o n IV Lasix for left lower extremity edema. PHYSICAL EXAM: VITAL SIGNS: Reviewed. GENERAL: Well-developed in no acute distress. NECK: Supple. No JVD or thyromegaly LUNGS: Respirations even and unlabored. Lungs essentially clear to auscultation bilaterally. HEART: Regular rate and rhythm. S1 and S2 heard. EXTREMITIES: Normal range of motion. No clubbing or cyanosis. Dressing and SANDY drains noted to left lower extremity. Left lower extremity with 2+ pitting edema. ASSESSMENT: Atrial fibrillation ruled out, telemetry reveals sinus mechanism with PACs Left lower extremity cellulitis serous drainage at surgical site status post washout and antibiotic bead placement Left lower extremity edema, secondary to above Peripheral vascular disease with gangrene left great toe Recent femoropopliteal arterial bypass done on 06/06/2023 Coronary artery disease with previous stenting of the circumflex in 2011 History of endovascular aortic repair in 2019 Hypertension Hyperlipidemia Daily alcohol intake Tobacco use and dependence Medication noncompliance PLAN: Continue current cardiac medications Continue IV Lasix for lower extremity edema. Transition to oral diuretics upon discharge. Continue telemetry monitoring Patient is stable for discharge today from a cardiac standpoint Further recommendations pending patient course Nurse practitioner note has been reviewed by physician. Signing provider agrees with the documented findings, assessment, and plan of care documented by WINDOW SH[employer]ING SEWER as a scribe. Objective - Vital Signs Vital signs: Vital Signs Temp 98.1 F 06/23/23 08:50 Pulse 68 06/23/23 08:50 Resp 17 06/23/23 08:50 BP 124/70 06/23/23 08:50 Pulse Ox 97 06/23/23 08:50 FiO2 Intake & Output 06/22/23 06/23/23 06/23/23 18:59 06:59 18:59 Intake Total 840 240 Output Total 1445 610 600 Balance -605 -610 -360 Intake: Oral 840 240 Output: Drainage 95 60 Left Groin 75 45 Left Thigh 20 15 Urine 1350 550 600 Other: Voiding Method External Catheter External Catheter - Labs CBC & Chem 7: 06/21/23 10:09 06/21/23 10:09 Labs: Microbiology - Last 24 Hours (Table) 06/20/23 17:04 Gram Stain - Preliminary Leg - Left Wound Culture - Preliminary Presumptive Staph aureus 06/20/23 17:04 Gram Stain - Preliminary Groin Wound Culture - Preliminary Presumptive Staph aureus
--- NOTE | 2023-06-23 11:00 | P.DS ---
Providers Date of admission: 06/18/23 16:17 Expected date of discharge: 06/23/23 Attending physician: Elmo Thomas Consults: 06/18/23 16:17 Consult Physician Routine Consulting Provider: William Byrnes Consult Reason/Comments: Postop drainage, dry gangrene of the left toe Do you want consulting provider notified?: Already Contacted 06/19/23 00:18 Consult Physician Routine Consulting Provider: Prem Grier Consult Reason/Comments: Afib new Do you want consulting provider notified?: Yes, Notify in am 06/21/23 08:47 Consult Physician Routine Consulting Provider: Nancy Obrien Consult Reason/Comments: abx therapy recommendations, post op dehiscence and surgical wound infectio Do you want consulting provider notified?: Yes Primary care physician: Elmo Thomas [place] [facility] Course: Final Diagnoses: Infected, dehisced surgical incision sites in a patient with history of PAD, left great toe dry gangrene, recent external iliac, femoral and popliteal artery endarterectomy with patch angioplasty and left femoral popliteal artery bypass with in situ vein graft. Preliminary wound cultures reporting presumptive staph aures. Status post I&D with washout. MSSA reported per local wound culture. Stage II pressure ulcer left heel History of aortic aneurysm with endovascular repair; Not new onset proximal atrial fibrillation as per further review by cardiology. CAD, history of stent placement Essential hypertension Hyperlipidemia Nicotine dependence Daily alcohol use Noncompliance with medication regimen, patient is high risk for readmission Hypokalemia, resolved with supplementation. Iron deficient anemia Hospital course:06/19/2023 this is a 63-year-old gentleman discharged 06/09/2023 with PAD, left great toe dry gangrene , status post external iliac, femoral and popliteal artery endarterectomy with patch angioplasty and left femoral popliteal artery bypass with in situ vein graft, returning with infected surgi nerissa site infections. Reports over the last week having purulent drainage from surgical sites, did not notify PCP nor vascular surgery. Denies fevers or chills. Denies chest pain, palpitations or shortness of breath. 06/20/2023 NPO, washout with deep tissue biopsies scheduled for today. Wound culture reporting presumptive staph aures. Continues on vancomycin. Renal function stable. Afebrile, WBC trending down 12.4. Reevaluated by cardiology, EKG reviewed, no atrial fibrillation. 06/21/2023 yesterday underwent I&D with washout; antibiotic beads, SANDY drains to the left groin and left medial calf placed. Tolerated procedure well. Evaluated by wound care team with recommendations noted. vancomycin discontinued cefazolin initiated as per infectious disease. Afebrile, WBC increased to 15.3. 06/22/2023 afebrile ,maintained on IV antibiotics as per ID. PICC line ordered. Local wound culture reporting MSSA , preliminary blood cultures reporting no growth. Diuresing well on Lasix IV push with 24-hour WOLF reflecting a negative fluid balance. denies chest pain, palpitations or shortness of breath. PICC line placed. Denies chest pain, palpitations or shortness of breath. Maint aining O2 sats in the high 90s to 100% on room air. Afebrile. Cleared by vascular surgery and cardiology for discharge. Lasix dosing at DC as per cardiology. patient will be discharged to [facility] subacute rehab today in a stable condition with guarded prognosis pending final DC recommendations/antibiotics and clearance per infectious disease. Smoking sensation reinforced. Alcohol abstinence reinforced. Microbiology 06/19/23 11:57 Groin Anaerobic Culture - Final 06/20/23 17:04 Leg - Left Gram Stain - Preliminary 06/20/23 17:04 Leg - Left Wound Culture - Preliminary Presumptive Staph aureus 06/20/23 17:04 Groin Gram Stain - Preliminary 06/20/23 17:04 Groin Wound Culture - Preliminary Presumptive Staph aureus 06/18/23 13:20 Blood Blood Culture - Preliminary 06/18/23 13:24 Blood Blood Culture - Preliminary 06/19/23 11:57 Groin Gram Stain - Final 06/19/23 11:57 Groin Wound Culture - Final Staphylococcus aureus The impression and plan of care has been dictated as directed. : I performed a history and examination of this patient, discussed the same with the dictator. I agree with the dictator's note ,documented as a scribe. Any additional findings or plans will be noted. Patient Condition at Discharge: Stable Plan - Discharge Summary Discharge Rx Participant: No New Discharge Prescriptions: New HYDROcodone/APAP 5-325MG [[place] 5-325] 1 each PO Q6HR PRN #12 tab PRN Reason: Pain Acetaminophen Tab [Tylenol] 650 mg PO Q6HR PRN tab PRN Reason: Mild Pain Or Fever > 100.5 Continue Atorvastatin [Lipitor] 40 mg PO HS #30 tab Pantoprazole Sodium [Protonix] 40 mg PO DAILY #30 tab Metoprolol Succinate (ER) [Toprol XL] 25 mg PO DAILY PRN PRN Reason: high bp Discontinued Losartan [Cozaar] 25 mg PO DAILY #30 tab Discharge Medication List Metoprolol Succinate (ER) [Toprol XL] 25 mg PO DAILY PRN 05/30/23 [History] Atorvastatin [Lipitor] 40 mg PO HS #30 tab 06/09/23 [Rx] Pantoprazole Sodium [Protonix] 40 mg PO DAILY #30 tab 06/09/23 [Rx] Acetaminophen Tab [Tylenol] 650 mg PO Q6HR PRN tab 06/23/23 [Rx] HYDROcodone/APAP 5-325MG [[place] 5-325] 1 each PO Q6HR PRN #12 tab 06/23/23 [Rx] Follow up Appointment(s)/Referral(s): Elmo Thomas DO [Primary Care Provider] - 1-2 days Caden Inman DO [STAFF PHYSICIAN] - 1 Week [facility], [NON-STAFF] - 1-2 Days ([facility] will call you to schedule your in home nursing visits. ) [facility] [NON-STAFF] - 1 Week Patient Instructions/Handouts: How to Stop Smoking (DC), Cigarette Smoking and Your Health (GEN), Abuse of Alcohol (DC), Alcohol Use Disorder (DC) Activity/Diet/Wound Care/Special Instructions: MIRELLA: CBC,BMP in 3 days Wound care as per Wound care team/Vasc Patient requires a walker due to unsteady gait caused by gangrene of the left toe. No driving until cleared by surgeon Avoid heavy lifting greater than 10 lbs , pushing, pulling, straining, flights of stairs until cleared by surgeon ok to shower tomorrow but no baths, pools, soaking in tubs to avoid risk of infection. signs of infection ie: fever, rash, drainage from puncture site, swelling contact doctor or return to ER immediately. Heavy bleeding from incision site apply firm direct pressure and return to ER. Do not attempt to drive self. low sodium/low fat diet Elevate left lower extremity for most of the day to improve swelling Empty SANDY drains daily. Keep intact until follow-up with Dr. Inman 4 x 4 gauze dressing over incisions, change as needed.
[2023-06-23 11:56] LABS: African American GFR (CKD) >90 (>60 ml/min/1.73 sqM); Anion Gap 10 mmol/L; Blood Urea Nitrogen 11 mg/dL (9-20); Calcium 8.6 mg/dL (8.4-10.2); Carbon Dioxide 24 mmol/L (22-30); Chloride 104 mmol/L (98-107); Glucose 80 mg/dL (74-99); Magnesium 1.4 mg/dL (1.6-2.3); Non-African American GFR(CKD) >90 (>60 ml/min/1.73 sqM); Potassium 3.8 mmol/L (3.5-5.1); Sodium 138 mmol/L (137-145)
[2023-06-23 12:04] LABS: Anisocytosis Slight; Basophils # (A) 0.1 k/uL (0-0.2); Basophils % (A) 1 %; Eosinophils # (A) 0.2 k/uL (0-0.7); Eosinophils % (A) 2 %; HCT 33.4 % (39.0-53.0); Hypochromasia Marked; Lymphocytes # (A) 0.9 k/uL (1.0-4.8); Lymphocytes % (A) 9 %; MCH 34.1 pg (25.0-35.0); Macrocytosis Marked; Mean Platelet Volume 9.2; Monocytes # (A) 0.5 k/uL (0-1.0); Monocytes % (A) 5 %; Neutrophils # (A) 8.3 k/uL (1.3-7.7); Neutrophils % (A) 82 %; Platelet Count 382 k/uL (150-450); RBC 2.93 m/uL (4.30-5.90); RDW 16.9 % (11.5-15.5); WBC 10.1 k/uL (3.8-10.6)
[2023-06-23 12:07] LABS: MCV 113.9 fL (80.0-100.0)
--- NOTE | 2023-06-23 15:32 | P.PN ---
Subjective Progress Note Date: 06/23/23 Principal diagnosis: Reason for follow-up is left lower extremity wound and cellulitis Patient is a 63-year-old male with a past medical history significant for hypertension hyperlipidemia PA coronary artery disease as well as peripheral arterial disease in this patient who did have a gangrene to the left big toe in this patient who is status post left external iliac femoral and popliteal artery endarterectomy with patch angioplasty as well as femoral to the popliteal artery bypass in situ graft completed on 06/06/2023, readmitted to hospital worsening drainage in this patient who status post debridement of the wound culture positive for MSSA. On today's evaluation that is 06/23/2023,the patient denies any fever or any chills, patient is breathing comfortably on room air, the patient denies chest pain shortness of breath and no significant cough, patient denies abdominal pain, no nausea vomiting or diarrhea rather constipated. Still complaining of pain to the left lower extremity but slightly decreased in intensity. The patient white count normalized to 10.1, creatinine 0.72 blood culture has been negative Objective - Vital Signs Vital signs: Vital Signs Temp 97.8 F 06/23/23 02:00 Pulse 65 06/23/23 02:00 Resp 16 06/23/23 02:00 BP 106/63 06/23/23 02:00 Pulse Ox 96 06/23/23 02:00 FiO2 Intake & Output 06/22/23 06/23/23 06/23/23 18:59 06:59 18:59 Intake Total 840 Output Total 1445 610 Balance -605 -610 Intake: Oral 840 Output: Drainage 95 60 Left Groin 75 45 Left Thigh 20 15 Urine 1350 550 Other: Voiding Method External Catheter External Catheter - Exam GENERAL DESCRIPTION: Middle-age male lying in bed in no distress RESPIRATORY SYSTEM: Unlabored breathing , decreased breath sounds at bases HEART: S1 S2 regular rate and rhythm , ABDOMEN: Soft , no tenderness EXTREMITIES: Left lower extremity significant swelling with redness around inc ision minimal drainage - Labs CBC & Chem 7: 06/23/23 10:55 06/23/23 10:55 Labs: Microbiology - Last 24 Hours (Table) 06/20/23 17:04 Gram Stain - Preliminary Leg - Left Wound Culture - Preliminary Presumptive Staph aureus 06/20/23 17:04 Gram Stain - Preliminary Groin Wound Culture - Preliminary Presumptive Staph aureus Assessment and Plan (1) Wound of left lower extremity Current Visit: Yes Status: Acute Code(s): S81.802A - UNSPECIFIED OPEN WOUND, LEFT LOWER LEG, INITIAL ENCOUNTER SNOMED Code(s): 73987445884194121 (2) Left leg cellulitis Current Visit: Yes Status: Acute Code(s): L03.116 - CELLULITIS OF LEFT LOWER LIMB SNOMED Code(s): 91970670645555132 (3) MSSA (methicillin susceptible Staphylococcus aureus) infection Current Visit: Yes Status: Acute Code(s): A49.01 - METHICILLIN SUSCEP STAPH INFECTION, UNSP SITE SNOMED Code(s): 184746662 (4) Gangrene of toe of left foot Current Visit: Yes Status: Acute Code(s): I96 - GANGRENE, NOT ELSEWHERE CLASSIFIED SNOMED Code(s): 63162572958935167 Plan: 1patient admitted to the hospital with left groin pain and swelling redness and drainage in this patient who did have a history of gangrene to the left big toe with a recent extensive surgical intervention including endarterectomy as well as femoral to popliteal artery bypass graft now with evidence of surgical site infection of the left groin area status post surgical debridement local culture positive for MSSA blood culture has been negative 2-patient blood culture has been negative patient white count has normalized patient did get a PICC line on 06/23/2023 3-plan is for cefazolin 2 g every 8 hours for 2 to 3-week depending upon clinical response Dictation was produced using [employer] dictation software. please excuse any grammatical, word or spelling errors. Time with Patient: Less than 30
[2023-06-23 16:26] VITALS: BMI 26.5
[2023-06-23] MEDS ORDERED: Magnesium Replacement Protocol 1 EACH MISC MISCELLANE PRN (19:55)
[2023-06-23] MEDS: MAGNESIUM SULFATE-D5W PMX 1 GM in DEXTROSE/WATER 1 100ML.BAG IVPB SCH (20:09)
[2023-06-23 20:14] VITALS: RESP 16
[2023-06-24 04:15] VITALS: BP 123/65; PULSE 64; TEMP 98.2
[2023-06-24] MEDS: FUROSEMIDE 40 MG TAB PO SCH (08:52)
--- NOTE | 2023-06-24 14:21 | P.PN ---
Subjective Progress Note Date: 06/24/23 06/19/2023 this is a 63-year-old gentleman discharged 06/09/2023 with PAD, left great toe dry gangrene , status post external iliac, femoral and popliteal artery endarterectomy with patch angioplasty and left femoral popliteal artery bypass with in situ vein graft, returning with infected surgical site infec tions. Reports over the last week having purulent drainage from surgical sites, did not notify PCP nor vascular surgery. Denies fevers or chills. Denies chest pain, palpitations or shortness of breath. 06/20/2023 NPO, washout with deep tissue biopsies scheduled for today. Wound culture reporting presumptive staph aures. Continues on vancomycin. Renal function stable. Afebrile, WBC trending down 12.4. Reevaluated by cardiology, EKG reviewed, no atrial fibrillation. 06/21/2023 yesterday underwent I&D with washout; antibiotic beads, SANDY drains to the left groin and left medial calf placed. Tolerated procedure well. Evaluated by wound care team with recommendations noted. vancomycin discontinued cefazolin initiated as per infectious disease. Afebrile, WBC increased to 15.3. 06/22/2023 afebrile ,maintained on IV antibiotics as per ID. PICC line ordered. Local wound culture reporting MSSA , preliminary blood cultures reporting no growth. Diuresing well on Lasix IV push with 24-hour WOLF reflecting a negative fluid balance. denies chest pain, palpitations or shortness of breath. 06/23. Patient seen and examined. Dr. Curtis took over care from Dr. Thomas.currently waiting on discharge to rehab facility REVIEW OF SYSTEMS: CONSTITUTIONAL: No fever, no malaise,. CARDIOVASCULAR: No chest pain, no palpitations, no syncope. PULMONARY: No shortness of breath, no cough, GASTROINTESTINAL: No diarrhea, no nausea, no vomiting, no abdominal pain. NEUROLOGICAL: No headaches, no weakness, PHYSICAL EXAMINATION: GENERAL: The patient is alert and oriented x3, not in any acute distress. Well developed, well nourished. HEENT: Pupils are round and equally reacting to light. EOMI. No scleral icterus. No conjunctival pallor. Normocephalic, atraumatic. No pharyngeal erythema. No thyromegaly. CARDIOVASCULAR: S1 and S2 present. No murmurs, rubs, or gallops. PULMONARY: Chest is clear to auscultation, no wheezing or crackles. ABDOMEN: Soft, nontender, nondistended, normoactive bowel sounds. No palpable organomegaly. MUSCULOSKELETAL: No joint swelling or deformity. EXTREMITIES: left lower extremity swelling, incision seen NEUROLOGICAL: Gross neurological examination did not reveal any focal deficits. SKIN: No rashes. Assessment and plan Infected, dehisced surgical incision sites in a patient with history of PAD, left great toe dry gangrene, recent external iliac, femoral and popliteal artery endarterectomy with patch angioplasty and left femoral popliteal artery bypass with in situ vein graft. Preliminary wound cultures reporting presumptive staph aures. Status post I&D with washout. MSSA reported per local wound culture. Stage II pressure ulcer left heel History of aortic aneurysm with endovascular repair; Not new onset proximal atrial fibrillation as per further review by cardiology. CAD, history of stent placement Essential hypertension Hyperlipidemia Nicotine dependence Daily alcohol use Noncompliance with medication regimen Hypokalemia, resolved with supplementation. Iron deficient anemia Monitor vital signs Monitor CBC Monitor CMP continue aspirin, Lipitor Continue IV cefazolin Continue Lasix 40 mg daily Cardiology following ID following Vascular surgery following patient medically stable for discharge, waiting on rehab facility Labs and medication were reviewed.. Continue same treatment. Continue with symptomatic treatment. Resume home medication. Monitor labs and vitals. DVT and GI prophylaxis. Further recommendations as per clinical course of the patient Dictation was produced using [employer] dictation software. please excuse any grammatical, word or spelling errors. Objective - Vital Signs Vital signs: Vital Signs Temp 98.2 F 06/24/23 02:00 Pulse 64 06/24/23 08:10 Resp 16 06/24/23 08:10 BP 123/65 06/24/23 02:00 Pulse Ox 98 06/24/23 02:00 FiO2 Intake & Output 06/23/23 06/24/23 06/24/23 18:59 06:59 18:59 Intake Total 358 222 Output Total 1345 950 Balance -987 -950 222 Weight 83.915 kg 72.5 kg Intake: Oral 358 222 Output: Drainage 145 Left Groin 115 Left Thigh 30 Urine 1200 950 Other: Voiding Method External Catheter Urinal Urinal # Bowel Movements 1 1 - Labs CBC & Chem 7: 06/23/23 10:55 06/23/23 10:55 Labs: Abnormal Lab Results - Last 24 Hours (Table) 06/23/23 06/23/23 Range/Units 10:55 10:55 RBC 2.93 L (4.30-5.90) m/uL Hgb 10.0 L (13.0-17.5) gm/dL Hct 33.4 L (39.0-53.0) % MCV 113.9 H D (80.0-100.0) fL MCHC 30.0 L (31.0-37.0) g/dL RDW 16.9 H (11.5-15.5) % Neutrophils # 8.3 H (1.3-7.7) k/uL Lymphocytes # 0.9 L (1.0-4.8) k/uL Macrocytosis Marked A Magnesium 1.4 L (1.6-2.3) mg/dL Microbiology - Last 24 Hours (Table) 06/18/23 13:20 Blood Culture - Final Blood 06/18/23 13:24 Blood Culture - Final Blood 06/20/23 17:04 Anaerobic Culture - Preliminary Groin 06/20/23 17:04 Anaerobic Culture - Preliminary Leg - Left 06/20/23 17:04 Gram Stain - Final Leg - Left Wound Culture - Final Staphylococcus aureus 06/20/23 17:04 Gram Stain - Final Groin Wound Culture - Final Staphylococcus aureus 06/19/23 11:57 Anaerobic Culture - Final Groin
--- NOTE | 2023-06-24 19:22 | P.PN ---
Subjective Progress Note Date: 06/24/23 Principal diagnosis: Reason for follow-up is left lower extremity wound and cellulitis Patient is a 63-year-old male with a past medical history significant for hypertension hyperlipidemia [place] coronary artery disease as well as peripheral arterial disease in this patient who did have a gangrene to the left big toe in this patient who is status post left external iliac femoral and popliteal artery endarterectomy with patch angioplasty as well as femoral to the popliteal artery bypass in situ graft completed on 06/06/2023, readmitted to hospital worsening drainage in this patient who status post debridement of the wound culture positive for MSSA. On today's evaluation that is 06/24/2023,the patient remains to be afebrile, patient is on room air not requiring supplemental oxygen and denies any shortness of breath no chest pain or cough.Patient denies having any nausea or vomiting, no abdominal pain and no diarrhea rather patient is constipated has a bowel movement no side abdominal pain to the left thigh area and did have some drainage. Patient white count was 10.1 as of yesterday no lab draw today blood culture has been negative or culture with MSSA anaerobe culture has been negative Objective - Vital Signs Vital signs: Vital Signs Temp 98.2 F 06/24/23 02:00 Pulse 64 06/24/23 08:10 Resp 16 06/24/23 08:10 BP 123/65 06/24/23 02:00 Pulse Ox 98 06/24/23 02:00 FiO2 Intake & Output 06/23/23 06/24/23 06/24/23 18:59 06:59 18:59 Intake Total 358 222 Output Total 1345 950 450 Balance -987 -950 -228 Weight 83.915 kg 72.5 kg Intake: Oral 358 222 Output: Drainage 145 Left Groin 115 Left Thigh 30 Urine 1200 950 450 Other: Voiding Method External Catheter Urinal Urinal # Bowel Movements 1 1 - Exam GENERAL DESCRIPTION: Middle-age male lying in bed in no distress RESPIRATORY SYSTEM: Unlabored breathing , decreased breath sounds at bases HEART: S1 S2 regular rate and rhythm , ABDOMEN: Soft , no tenderness EXTREMITIES: Left lower extremity especially medial thigh did have swelling and some induration and did have some drainage - Labs CBC & Chem 7: 06/23/23 10:55 06/23/23 10:55 Labs: Abnormal Lab Results - Last 24 Hours (Table) 06/23/23 06/23/23 Range/Units 10:55 10:55 RBC 2.93 L (4.30-5.90) m/uL Hgb 10.0 L (13.0-17.5) gm/dL Hct 33.4 L (39.0-53.0) % MCV 113.9 H D (80.0-100.0) fL MCHC 30.0 L (31.0-37.0) g/dL RDW 16.9 H (11.5-15.5) % Neutrophils # 8.3 H (1.3-7.7) k/uL Lymphocytes # 0.9 L (1.0-4.8) k/uL Macrocytosis Marked A Magnesium 1.4 L (1.6-2.3) mg/dL Microbiology - Last 24 Hours (Table) 06/18/23 13:20 Blood Culture - Final Blood 06/18/23 13:24 Blood Culture - Final Blood 06/20/23 17:04 Anaerobic Culture - Preliminary Groin 06/20/23 17:04 Anaerobic Culture - Preliminary Leg - Left 06/20/23 17:04 Gram Stain - Final Leg - Left Wound Culture - Final Staphylococcus aureus 06/20/23 17:04 Gram Stain - Final Groin Wound Culture - Final Staphylococcus aureus 06/19/23 11:57 Anaerobic Culture - Final Groin Assessment and Plan (1) Wound of left lower extremity Status: Acute Code(s): S81.802A - UNSPECIFIED OPEN WOUND, LEFT LOWER LEG, IN ITIAL ENCOUNTER SNOMED Code(s): 60208138717095300 (2) Left leg cellulitis Status: Acute Code(s): L03.116 - CELLULITIS OF LEFT LOWER LIMB SNOMED Code(s): 69140075517434742 (3) MSSA (methicillin susceptible Staphylococcus aureus) infection Status: Acute Code(s): A49.01 - METHICILLIN SUSCEP STAPH INFECTION, UNSP SITE SNOMED Code(s): 891320128 (4) Gangrene of toe of left foot Status: Acute Code(s): I96 - GANGRENE, NOT ELSEWHERE CLASSIFIED SNOMED Code(s): 79338430953535423 Plan: 1patient admitted to the hospital with left groin pain and swelling redness and drainage in this patient who did have a history of gangrene to the left big toe with a recent extensive surgical intervention including endarterectomy as well as femoral to popliteal artery bypass graft now with evidence of surgical site infection of the left groin area status post surgical debridement local culture positive for MSSA blood culture has been negative 2-patient blood culture has been negative patient white count has normalized as of 06/23/2023 patient did get a PICC line on 06/23/2023 3-patient will be advised cefazolin 2 g every 8 hours for 2 to 3-week depending upon clinical response and close outpatient follow-up Dictation was produced using [employer] dictation software. please excuse any grammatical, word or spelling errors. Time with Patient: Less than 30
== END 2023-06-24 15:11 | DRG 857 ==
LOC: EC 12:47 → 4SSUR 16:17 → 3SCARD 06-20 18:59
PROVIDERS: ADMIT Family Medicine; ATTEND Family Medicine
PROC: 3E0102A Introduction of Anti-Infective Envelope into Subcutaneous Tissue, Open Approach (ICD-10-PCS; principal; 2023-06-20 08:30)
PROC: 0J9M00Z Drainage of Left Upper Leg Subcutaneous Tissue and Fascia with Drainage Device, Open Approach (ICD-10-PCS; principal; 2023-06-20 08:30)
PROC: 0J9P00Z Drainage of Left Lower Leg Subcutaneous Tissue and Fascia with Drainage Device, Open Approach (ICD-10-PCS; principal; 2023-06-20 08:30)
PROC: 0JBC0ZZ Excision of Pelvic Region Subcutaneous Tissue and Fascia, Open Approach (ICD-10-PCS; principal; 2023-06-20 08:30)
PROC: 0JBP0ZZ Excision of Left Lower Leg Subcutaneous Tissue and Fascia, Open Approach (ICD-10-PCS; principal; 2023-06-20 08:30)
PROC: 0JDN0ZZ Extraction of Right Lower Leg Subcutaneous Tissue and Fascia, Open Approach (ICD-10-PCS; principal; 2023-06-20 08:30)
PROC: 0JDM0ZZ Extraction of Left Upper Leg Subcutaneous Tissue and Fascia, Open Approach (ICD-10-PCS; principal; 2023-06-20 08:30)
PROC: 02HV33Z Insertion of Infusion Device into Superior Vena Cava, Percutaneous Approach (ICD-10-PCS; 2023-06-23)
DX: T81.49XA Infection following a procedure, other surgical site, initial encounter (principal); I96 Gangrene, not elsewhere classified; T81.31XA Disruption of external operation (surgical) wound, not elsewhere classified, initial encounter; L03.116 Cellulitis of left lower limb; L98.495 Non-pressure chronic ulcer of skin of other sites with muscle involvement without evidence of necrosis; L97.125 Non-pressure chronic ulcer of left thigh with muscle involvement without evidence of necrosis; L97.225 Non-pressure chronic ulcer of left calf with muscle involvement without evidence of necrosis; L89.622 Pressure ulcer of left heel, stage 2; Z95.820 Peripheral vascular angioplasty status with implants and grafts; I71.40 Abdominal aortic aneurysm, without rupture, unspecified; B95.61 Methicillin susceptible Staphylococcus aureus infection as the cause of diseases classified elsewhere; D50.9 Iron deficiency anemia, unspecified; I10 Essential (primary) hypertension; E78.5 Hyperlipidemia, unspecified; E87.6 Hypokalemia; Z91.148 Patient's other noncompliance with medication regimen for other reason; E87.70 Fluid overload, unspecified; F17.200 Nicotine dependence, unspecified, uncomplicated; F41.9 Anxiety disorder, unspecified; I25.10 Atherosclerotic heart disease of native coronary artery without angina pectoris; S82.892D Other fracture of left lower leg, subsequent encounter for closed fracture with routine healing; D53.9 Nutritional anemia, unspecified; I25.2 Old myocardial infarction; I48.0 Paroxysmal atrial fibrillation; K59.00 Constipation, unspecified; I49.1 Atrial premature depolarization; Z79.82 Long term (current) use of aspirin; K21.9 Gastro-esophageal reflux disease without esophagitis; M10.9 Gout, unspecified; Z79.01 Long term (current) use of anticoagulants; Z79.899 Other long term (current) drug therapy; Z82.49 Family history of ischemic heart disease and other diseases of the circulatory system; Z86.79 Personal history of other diseases of the circulatory system; Z95.5 Presence of coronary angioplasty implant and graft
CPT/HCPCS: 36415; 36573; 71046; 80048; 80053; 80202; 82565; 82607; 82747; 83540; 83550; 83605; 83735; 83880; 85025; 85610; 85730; 87040; 87070; 87075; 87077; 87186; 87205; 93005; 94760; 96365; 96366; 96367; 96375; 99285

== ENCOUNTER 2023-08-22 06:46 | Inpatient (IN) | payer OTHER ==
[2023-08-18 11:55] VITALS: BMI 30.1
[2023-08-22 08:09] LABS: Glucose,Whole Blood 113 mg/dL (70-110)
[2023-08-22] MEDS: ONDANSETRON 4 MG/2 ML VIAL IVP STA (08:10)
[2023-08-22] MEDS: fentaNYL (PF) 50 MCG/ML 2 ML AMP IVP PRN (08:12)
[2023-08-22] MEDS: DEXAMETHASONE SOD PHOSPHATE 4 MG/ML 1 ML VIAL IM STA (08:13)
[2023-08-22] MEDS: LACTATED RINGERS 1,000 ML IV SCH (08:16)
[2023-08-22] MEDS: IV FLUID CONTINUATION 1,000 ML IV ONE (08:19)
[2023-08-22] MEDS ORDERED: LIDOCAINE 1% INJ 10MG/ML (20 ML MDV) ONE (09:03)
[2023-08-22] MEDS ORDERED: PROPOFOL 10 MG/ML 20 ML VIAL IV ONE (09:03)
[2023-08-22] MEDS ORDERED: PHENYLEPHRINE-0.9% NACL SYG 1,000 MCG/10 ML SYRINGE ONE (09:03)
[2023-08-22] MEDS ORDERED: fentaNYL (PF) 50 MCG/ML 2 ML AMP ONE (09:03)
--- NOTE | 2023-08-22 12:46 | P.OP ---
Date of Procedure: 08/22/23 Preoperative Diagnosis: left lower extremity skin dehiscence and wound left great toe ischemia left lower extremity infection, edema Postoperative Diagnosis: same Procedure(s) Performed: Excisional debridement left lower extremity incisional wound and great toe Negative pressure wound vac placement Anesthesia: SILVESTREA Surgeon: Caden Inman Estimated Blood Loss (ml): 5 Pathology: other (wound cultures) Condition: stable Disposition: PACU Indications for Procedure: 63 year old gentleman with history of left femoral tibial bypass secondary to critical limb ischemia presents for debridement of the left lower leg wound and possible skin substitute. He states his leg swelling has worsened bilaterally and the wound has increased in size and has a bad odor. Operative Findings: ischemic changes to the wound bed with purulent drainage noted. Wound measures 14.2 cm x 5.1 cm x 0.6 cm Great toe wound measures 2 cm x 3 cm x 0.2 cm Description of Procedure: After written and informed consent was obtained for the patient and all risk, benefits and complications were discussed the patient was brought to the operative suite and laid in the supine position. The area of the left leg was prepped and draped in usual sterile fashion. Timeout was performed in usual fashion antibiotics were administered. Using a 15 blade scalpel the ischemic edges and portions of the wound were excised down to bleeding subcutaneous tissue. No bone or fascia was exposed. The wound extended to the subcutaneous tissue and deep cultures were then obtained. A curette was utilized to remove all fibrinous and ischemic tissue. There was some bleeding tissue noted but had the appearance of infection still present and therefore no skin substitute was placed. The area was then copiously irrigated and a wound VAC was placed in normal fashion. Attention was then placed to the toe which had fibrinous tissue throughout and some surrounding ischemic tissue at the edges. Debridement was then performed at this area with a curette down to the subcutaneous tissue without any evidence of bone or fascia present. Minimal bleeding was noted at the toe. The area was then irrigated with antibiotic solution. The wound was then dressed with 4 x 4, Kerlix. Both legs were wrapped with Abhijeet wraps to improve his lower extremity edema. Patient tolerated the procedure well and was sent to PACU for recovery. He will be admitted to the hospital for continued IV antibiotics as well as compression to his lower extremities.
[2023-08-22] MEDS: FUROSEMIDE 40 MG TAB PO SCH (14:38)
[2023-08-22] MEDS: METOPROLOL SUCCINATE (ER) 25 MG TAB.ER.24H PO SCH (14:38)
[2023-08-22] MEDS: PANTOPRAZOLE 40 MG/10 ML VIAL IVP SCH (15:59)
[2023-08-22] MEDS: HYDROcodone/APAP 5-325MG 1 EACH TAB PO PRN (16:01)
[2023-08-22 16:18] LABS: Anisocytosis Slight; Basophils % (A) 0 %; Eosinophils % (A) 0 %; HCT 29.8 % (39.0-53.0); HGB 8.8 gm/dL (13.0-17.5); Hypochromasia Marked; Lymphocytes # (A) 0.5 k/uL (1.0-4.8); Lymphocytes % (A) 5 %; MCH 25.5 pg (25.0-35.0); MCHC 29.5 g/dL (31.0-37.0); MCV 86.6 fL (80.0-100.0); Mean Platelet Volume 8.3; Monocytes # (A) 0.3 k/uL (0-1.0); Monocytes % (A) 4 %; Neutrophils # (A) 8.4 k/uL (1.3-7.7); Neutrophils % (A) 91 %; Platelet Count 310 k/uL (150-450); Poikilocytosis Moderate; RBC 3.44 m/uL (4.30-5.90); RDW 17.6 % (11.5-15.5); WBC 9.3 k/uL (3.8-10.6)
[2023-08-22 16:45] LABS: African American GFR (CKD) >90 (>60 ml/min/1.73 sqM); Anion Gap 13 mmol/L; Blood Urea Nitrogen 10 mg/dL (9-20); Carbon Dioxide 20 mmol/L (22-30); Chloride 97 mmol/L (98-107); Glucose 141 mg/dL (74-99); Non-African American GFR(CKD) >90 (>60 ml/min/1.73 sqM); Potassium 3.1 mmol/L (3.5-5.1); Sodium 130 mmol/L (137-145)
[2023-08-23] MEDS: ATORVASTATIN 40 MG TAB PO SCH (08:12)
[2023-08-23 09:06] LABS: African American GFR (CKD) >90 (>60 ml/min/1.73 sqM); Anion Gap 12 mmol/L; Blood Urea Nitrogen 10 mg/dL (9-20); Calcium 8.3 mg/dL (8.4-10.2); Carbon Dioxide 22 mmol/L (22-30); Chloride 98 mmol/L (98-107); Glucose 133 mg/dL (74-99); Non-African American GFR(CKD) >90 (>60 ml/min/1.73 sqM); Sodium 132 mmol/L (137-145)
[2023-08-23 09:11] LABS: Potassium 3.2 mmol/L (3.5-5.1)
[2023-08-23 09:15] LABS: Anisocytosis Slight; Basophils % (A) 0 %; Eosinophils # (A) 0.1 k/uL (0-0.7); Eosinophils % (A) 1 %; HCT 29.4 % (39.0-53.0); Hypochromasia Marked; Lymphocytes # (A) 0.7 k/uL (1.0-4.8); Lymphocytes % (A) 7 %; MCH 26.3 pg (25.0-35.0); MCHC 30.4 g/dL (31.0-37.0); MCV 86.5 fL (80.0-100.0); Mean Platelet Volume 8.6; Monocytes # (A) 0.8 k/uL (0-1.0); Monocytes % (A) 8 %; Neutrophils # (A) 8.6 k/uL (1.3-7.7); Neutrophils % (A) 84 %; Platelet Count 330 k/uL (150-450); Poikilocytosis Slight; RDW 17.9 % (11.5-15.5); WBC 10.2 k/uL (3.8-10.6)
[2023-08-23] MEDS ORDERED: VANCOMYCIN IV PER PHARMACY 1 EACH MISC MISCELLANE PRN (09:45)
[2023-08-23] MEDS: VANCOMYCIN 1,500 MG in SODIUM CHLORIDE 0.9% 500 ML 500 ML IVPB SCH (10:49)
[2023-08-23] MEDS: POTASSIUM CHLORIDE ER 20 MEQ TAB.ER PO SCH (10:49)
--- NOTE | 2023-08-23 11:02 | P.PN ---
Subjective Progress Note Date: 08/23/23 Principal diagnosis: Left lower extremity infection Patient is seen and examined today as a follow-up. He is sitting up in bed. He is without any complaints. Pain is well-controlled he is taking oral [place]. Wound VAC is in place to left lower extremity with good suction. Great toe with dressing clean dry and intact. Bilateral lower extremities with Abhijeet wraps present. He has been afebrile. Deep tissue cultures are currently pending. Infectious disease has been consulted. WBC 10.2 hemoglobin 9.0 platelet count 330,000 sodium 132 potassium 3.2 BUN 10 creatinine 0.5 Objective - Vital Signs Vital signs: Vital Signs Temp 97.5 F L 08/23/23 07:25 Pulse 65 08/23/23 07:25 Resp 18 08/23/23 07:25 BP 138/87 08/23/23 07:25 Pulse Ox 96 08/23/23 07:25 FiO2 Intake & Output 08/22/23 08/23/23 08/23/23 18:59 06:59 18:59 Intake Total 1130 Output Total 10 Balance 1120 Weight 99 kg Intake: IV 550 Oral 580 Output: Estimated Blood Loss 10 Other: # Voids 2 - Exam General appearance: The patient is alert, oriented, appears in no acute distress. HET: Head is normocephalic and atraumatic. Pupils are equal and reactive. Neck: Supple. Heart: Regular. Lungs: Equal expansion, normal respiratory effort. Abdomen: Soft, nontender, nondistended. Extremities: Bilateral lower extremities with Abhijeet wrap's from the knee down to toes. Left lower extremity with wound VAC in place. Left great toe with dressing clean dry and intact. Neurological: No focal deficits. Strength and sensation are grossly intact. - Labs CBC & Chem 7: 08/23/23 08:33 08/23/23 08:33 Labs: Abnormal Lab Results - Last 24 Hours (Table) 08/22/23 08/22/23 Range/Units 15:45 15:45 RBC 3.44 L (4.30-5.90) m/uL Hgb 8.8 L (13.0-17.5) gm/dL Hct 29.8 L (39.0-53.0) % MCHC 29.5 L (31.0-37.0) g/dL RDW 17.6 H (11.5-15.5) % Neutrophils # 8.4 H (1.3-7.7) k/uL Lymphocytes # 0.5 L (1.0-4.8) k/uL Sodium 130 L (137-145) mmol/L Potassium 3.1 L (3.5-5.1) mmol/L Chloride 97 L (98-107) mmol/L Carbon Dioxide 20 L (22-30) mmol/L Creatinine 0.58 L (0.66-1.25) mg/dL Glucose 141 H (74-99) mg/dL Calcium 8.0 L (8.4-10.2) mg/dL Assessment and Plan Assessment: 1. Left lower extremity skin dehiscence and wound, infected. Status post excisional debridement and wound VAC application 2. Left great toe ischemia status post excisional debridement 3. Bilateral lower extremity edema 4. History of left femoral tibial bypass secondary to critical limb ischemia 5. Hypokalemia Plan: 1. Continue symptomatic and supportive care 2. Replace potassium per protocol 3. Daily BMP 4. Continue bilateral lower extremity Abhijeet wrap for compression 5. Consult to medicine for medical management 6. Consult to infectious disease for IV antibiotic recommendations 7. Consult to wound care clinic. Patient will require outpatient follow-up with wound clinic 8. Heart healthy diet 9. Encourage ambulation 10. Elevate lower extremities The impression and plan of care has been dictated as directed. I performed a history and examination of this patient, discussed the same with the dictator. I agree with the dictator's note ,documented as a scribe. Any additional findings or plans will be noted.
[2023-08-23 11:14] LABS: Magnesium 1.1 mg/dL (1.6-2.3)
[2023-08-23 11:58] LABS: C Reactive Protein 2.7 mg/dL (<1.0)
[2023-08-23] MEDS: ESCITALOPRAM 10 MG TAB PO SCH (12:52)
[2023-08-23] MEDS: CEFEPIME 2 GM in SODIUM CHLORIDE 0.9% 100 ML IVPB SCH (13:52)
--- NOTE | 2023-08-23 14:45 | P.CONS ---
History of Present Illness - Reason for Consult Consult date: 08/22/23 Medical management Requesting physician: Caden Inman - Chief Complaint Left lower extremity debridement with wound VAC - History of Present Illness This is a 63-year-old gentleman with past medical history significant for PAD, multiple vascular procedures, status post excisional debridement with wound VAC application of left lower extremity secondary to skin dehiscence, edema and infected wound, left great toe ischemia. Tolerated procedure well. Maintained on IV antibiotics of cefepime , vancomycin as per infectious disease. Afebrile, normal WBC. Labs ordered. pain controlled. Denies chest pain, palpitations or shortness of breath. Maintaining O2 sats in the high 90s on 2 L nasal cannula. Review of Systems ROS Statement: Those systems with pertinent positive or pertinent negative responses have been documented in the HPI. ROS Other: All systems not noted in ROS Statement are negative. Past Medical History Past Medical History: Coronary Artery Disease (CAD), Chest Pain / Angina, GERD/Reflux, Hyperlipidemia, Hypertension, Myocardial Infarction (MT), Vascular Disorder Additional Past Medical History / Comment(s): AAA. Hx gout. Left leg wound. Last Myocardial Infarction Date:: 2010 History of Any Multi-Drug Resistant Organisms: None Reported Past Surgical History: Heart Catheterization With Stent, Orthopedic Surgery Additional Past Surgical History / Comment(s): LT WRIST SX, UNSURE IF ANY METAL PLACED. Lt.ankle surgery, 11 screws. Stent x1. EXPLORATORY LAPAROTOMY, UNABLE TO REPAIR AAA, Stent to Abdominal Aortic Aneurysm 2022, Lt. fem-pop artery bypass w/ insitu greater saphenous vein graft 06/06/23, leg wound on left with debridement Past Anesthesia/Blood Transfusion Reactions: Previous Problems w/ Anesthesia Additional Past Anesthesia/Blood Transfusion Reaction / Comm: "Takes a lot to put him out.". Pt. states he woke up once during surgery. Date of Last Stent Placement:: 2010 Past Psychological History: Anxiety Additional Psychological History / Comment(s): Anxiety w/ "hospital things". Smoking Status: Current every day smoker Past Alcohol Use History: Daily Additional Past Alcohol Use History / Comment(s): Normally SMOKES 1/2 PACK CIG /WEEK, started smoking age 24. DRINKING 4-5 LIQUOR DRINKS DAILY. Past Drug Use History: Marijuana Additional Drug Use History / Comment(s): Uses marijuana daily, half a joint. Instructed to hold 24 hrs prior to procedure - Past Family History Father Family Medical History: Cancer Additional Family Medical History / Comment(s): AGE 72 STOAMCH CA W/ METS Mother Family Medical History: Hypertension Medications and Allergies Home Medications Medication Instructions Recorded Confirmed Type Atorvastatin [Lipitor] 40 mg PO Q48H 07/27/23 08/18/23 History Furosemide [Lasix] 40 mg PO QAM 07/27/23 08/18/23 History Metoprolol Succinate [Metoprolol 25 mg PO QAM 07/27/23 08/18/23 History Succinate ER] Potassium Chloride [K-Tab ER] 40 meq PO DAILY 08/18/23 08/18/23 History Ibuprofen [Motrin] 800 mg PO Q8H 08/22/23 08/22/23 History Allergies Allergy/AdvReac Type Severity Reaction Status Date / Time No Known Allergies Allergy Verified 08/22/23 07:47 Physical Exam Vitals: Vital Signs Temp Pulse Resp BP Pulse Ox 08/22/23 10:15 74 12 120/74 100 08/22/23 10:03 97.4 F L 83 12 108/64 95 08/22/23 08:19 97.6 F 83 16 108/84 98 Intake and Output 08/21/23 08/22/23 08/22/23 22:59 06:59 14:59 Intake Total 350 Output Total 10 Balance 340 Intake: IV 350 Output: Estimated Blood Loss 10 Other: Weight 99 kg PHYSICAL EXAM: VITAL SIGNS: [As above] GENERAL: Alert and oriented x 3, sitting up in bed, no acute distress. HEENT: Normocephalic. Conjunctivae normal. eyes normal. NECK: Supple, no JVD. CARDIOVASCULAR: S1, S2 regular.No murmur RESPIRATION: Unlabored, equal air entry,CTA, bilateral bases diminished. ABDOMEN: Soft, nontender . No guarding. Positive bowel sounds. EXTREMITIES: Bilateral lower extremity edema with bilateral Abhijeet wrap dressings, clean dry and intact NERVOUS SYSTEM: Cranial N 2-12 grossly normal. No focal deficits. Strength and sensation grossly intact. Skin: Warm and dry, no rash Results CBC & Chem 7: 08/23/23 08:33 08/23/23 08:33 Labs: Abnormal Lab Results - Last 24 Hours (Table) 08/22/23 Range/Units 08:07 POC Glucose (mg/dL) 113 H (70-110) mg/dL Assessment and Plan Assessment: Left lower extremity debridement with wound VAC, secondary to left lower extremity skin dehiscence and wound Recent infected, dehisced surgical incision sites in a patient with history of PAD, left great toe dry gangrene, recent external iliac, femoral and popliteal artery endarterectomy with patch angioplasty and left femoral popliteal artery bypass with in situ vein graft. Preliminary wound cultures reporting presumptive staph aures. Status post I&D with washout. MSSA reported per local wound culture. Discharged on 06/23/2023 History of aortic aneurysm with endovascular repair; Not new onset proximal atrial fibrillation as per further review by cardiology. CAD, history of stent placement Essential hypertension Hyperlipidemia Nicotine dependence Daily alcohol use Noncompliance with medication regimen, patient is high risk for readmission Hypokalemia, resolved with supplementation. Iron deficient anemia Plan: Continue on current medication using ,monitoring and symptomatic treatment. Labs ordered. Bilateral lower extremity edema-maintain Abhijeet wrap for compression. Pain management, DVT prophylaxis, wound care as per primary. Wound care clinic consult in place. IV antibiotics as per infectious disease. Home meds have been reviewed and resumed. Close monitoring of coags, electrolytes and renal function with repeat labs ordered for a.m. Thank you for the consult. The impression and plan of care has been dictated as directed. : I performed a history and examination of this patient, discussed the same with the dictator. I agree with the dictator's note ,documented as a scribe. Any additional findings or plans will be noted.
--- NOTE | 2023-08-23 15:00 | P.PN ---
Subjective Progress Note Date: 08/23/23 08/22/2023 this is a 63-year-old gentleman with past medical history significant for PAD, multiple vascular procedures, status post excisional debridement with wound VAC application of left lower extremity secondary to skin dehiscence, edema and infected wound, left great toe ischemia. Tolerated procedure well. Maintained on IV antibiotics of cefepime , vancomycin as per infectious disease. Afebrile, normal WBC. Labs ordered. pain controlled. Denies chest pain, palpitations or shortness of breath. Maintaining O2 sats in the high 90s on 2 L nasal cannula. 08/23/2023 pain controlled on current med regimen [place]. Afebrile, normal WBC. Deep tissue cultures pending. Maintain on IV antibiotics as per infectious disease. Renal function stable. Potassium 3.2, supplements ordered. CRP pending. Objective - Vital Signs Vital signs: Vital Signs Temp 97.5 F L 08/23/23 07:25 Pulse 65 08/23/23 08:10 Resp 18 08/23/23 08:10 BP 138/87 08/23/23 07:25 Pulse Ox 96 08/23/23 07:25 FiO2 Intake & Output 08/22/23 08/23/23 08/23/23 18:59 06:59 18:59 Intake Total 1130 Output Total 10 Balance 1120 Weight 99 kg Intake: IV 550 Oral 580 Output: Estimated Blood Loss 10 Other: Voiding Method Toilet Urinal # Voids 2 - Exam VITAL SIGNS: [As above] GENERAL: Alert and oriented x 3, sitting up in bed, no acute distress. HEENT: Normocephalic. Conjunctivae normal. eyes normal. NECK: Supple, no JVD. CARDIOVASCULAR: S1, S2 regular.No murmur RESPIRATION: Unlabored, equal air entry,CTA. ABDOMEN: Soft, nontender, nondistended. No guarding. Positive bowel sounds. EXTREMITIES: Bilateral lower extremity edema with bilateral Abhijeet wrap dressings, clean dry and intact. Left lower extremity wound VAC present. Left great toe dressing clean dry and intact. NERVOUS SYSTEM: Cranial N 2-12 grossly normal. No focal deficits. Strength and sensation grossly intact. Skin: Warm and dry, no rash - Labs CBC & Chem 7: 08/23/23 08:33 08/23/23 08:33 Labs: Abnormal Lab Results - Last 24 Hours (Table) 08/22/23 08/22/23 08/23/23 Range/Units 15:45 15:45 08:33 RBC 3.44 L 3.40 L (4.30-5.90) m/uL Hgb 8.8 L 9.0 L (13.0-17.5) gm/dL Hct 29.8 L 29.4 L (39.0-53.0) % MCHC 29.5 L 30.4 L (31.0-37.0) g/dL RDW 17.6 H 17.9 H (11.5-15.5) % Neutrophils # 8.4 H 8.6 H (1.3-7.7) k/uL Lymphocytes # 0.5 L 0.7 L (1.0-4.8) k/uL Sodium 130 L (137-145) mmol/L Potassium 3.1 L (3.5-5.1) mmol/L Chloride 97 L (98-107) mmol/L Carbon Dioxide 20 L (22-30) mmol/L Creatinine 0.58 L (0.66-1.25) mg/dL Glucose 141 H (74-99) mg/dL Calcium 8.0 L (8.4-10.2) mg/dL Magnesium (1.6-2.3) mg/dL C-Reactive Protein (<1.0) mg/dL 08/23/23 08/23/23 Range/Units 08:33 10:05 RBC (4.30-5.90) m/uL Hgb (13.0-17.5) gm/dL Hct (39.0-53.0) % MCHC (31.0-37.0) g/dL RDW (11.5-15.5) % Neutrophils # (1.3-7.7) k/uL Lymphocytes # (1.0-4.8) k/uL Sodium 132 L (137-145) mmol/L Potassium 3.2 L (3.5-5.1) mmol/L Chloride (98-107) mmol/L Carbon Dioxide (22-30) mmol/L Creatinine 0.51 L (0.66-1.25) mg/dL Glucose 133 H (74-99) mg/dL Calcium 8.3 L (8.4-10.2) mg/dL Magnesium 1.1 L (1.6-2.3) mg/dL C-Reactive Protein 2.7 H (<1.0) mg/dL Assessment and Plan Assessment: Left lower extremity debridement with wound VAC, secondary to left lower extremity skin dehiscence and wound Recent infected, dehisced surgical incision sites in a patient with history of PAD, left great toe dry gangrene, recent external iliac, femoral and popliteal artery endarterectomy with patch angioplasty and left femoral popliteal artery bypass with in situ vein graft. Preliminary wound cultures reporting presumptive staph aures. Status post I&D with washout. MSSA reported per local wound culture. Discharged on 06/23/2023 History of aortic aneurysm with endovascular repair; Not new onset proximal atrial fibrillation as per further review by cardiology. CAD, history of stent placement Essential hypertension Hyperlipidemia Nicotine dependence Daily alcohol use Noncompliance with medication regimen, patient is high risk for readmission Hypokalemia, resolved with supplementation. Iron deficient anemia Hypokalemia Plan: Continue on current medication using ,monitoring and symptomatic treatment. Potassium supplements ordered . Magnesium level added on and will supplement accordingly .CRP pending . Pain management, DVT prophylaxis, wound care as per primary. IV antibiotics as per infectious disease. Blood and deep tissue cultures pending. Increase ambulation as tolerated. PT/OT. The impression and plan of care has been dictated as directed. : I performed a history and examination of this patient, discussed the same with the dictator. I agree with the dictator's note ,documented as a scribe. Any additional findings or plans will be noted.
[2023-08-23] MEDS: MAGNESIUM SULFATE-D5W PMX 1 GM in DEXTROSE/WATER 1 100ML.BAG IVPB SCH (17:58)
--- NOTE | 2023-08-23 21:34 | P.CONS ---
History of Present Illness - Reason for Consult Consult date: 08/23/23 Infected left leg wound Requesting physician: Alba Gonzalez - Chief Complaint Pain and drainage to the left leg x days - History of Present Illness Patient is a 63-year-old male with a past medical history significant for hypertension hyperlipidemia reflux coronary artery disease CT vascular disorder patient did have history of left femoral-tibial bypass secondary to critical limb ischemia has been admitted to the hospital after the patient did have a left lower extremity skin dehiscence and wound infection status post excisional debridement and wound VAC application local culture obtained patient was admitted to hospital infectious disease was consulted for further management of antibiotic therapy. At the time my evaluation this morning patient denies having any fever or any chills, the patient is breathing comfortably on room air not requiring any supplemental oxygen denies any headache or URI symptoms no chest pain shortness of breath or cough no nausea vomiting no abdominal pain no diarrhea complaining of some pain to the left lower extremity mostly dull aching mild to moderate in intensity without any radiation patient did have a white count of 10.2 with a left shift creatinine 0.51 cultures currently pending Review of Systems Positive point and negatives has been mentioned in the HPI, complete review of systems was performed and all other systems are negative Past Medical History Past Medical History: Coronary Artery Disease (CAD), Chest Pain / Angina, GERD/Reflux, Hyperlipidemia, Hypertension, Myocardial Infarction (CT), Vascular Disorder Additional Past Medical History / Comment(s): AAA. Hx gout. Left leg wound. Last Myocardial Infarction Date:: 2010 History of Any Multi-Drug Resistant Organisms: None Reported Past Surgical History: Heart Catheterization With Stent, Orthopedic Surgery Additional Past Surgical History / Comment(s): LT WRIST SX, UNSURE IF ANY METAL PLACED. Lt.ankle surgery, 11 screws. Stent x1. EXPLORATORY LAPAROTOMY, UNABLE TO REPAIR AAA, Stent to Abdominal Aortic Aneurysm 2022, Lt. fem-pop artery bypas s w/ insitu greater saphenous vein graft 06/06/23, leg wound on left with debridement Past Anesthesia/Blood Transfusion Reactions: Previous Problems w/ Anesthesia Additional Past Anesthesia/Blood Transfusion Reaction / Comm: "Takes a lot to put him out.". Pt. states he woke up once during surgery. Date of Last Stent Placement:: 2010 Past Psychological History: Anxiety Additional Psychological History / Comment(s): Anxiety w/ "hospital things". Smoking Status: Current every day smoker Past Alcohol Use History: Daily Additional Past Alcohol Use History / Comment(s): Normally SMOKES 1/2 PACK CIG / WEEK, started smoking age 24. DRINKING 4-5 LIQUOR DRINKS DAILY. Past Drug Use History: Marijuana Additional Drug Use History / Comment(s): Uses marijuana daily, half a joint. Instructed to hold 24 hrs prior to procedure - Past Family History Father Family Medical History: Cancer Additional Family Medical History / Comment(s): AGE 72 STOAMCH CA W/ METS Mother Family Medical History: Hypertension Medications and Allergies Home Medications Medication Instructions Recorded Confirmed Type Atorvastatin [Lipitor] 40 mg PO Q48H 07/27/23 08/18/23 History Furosemide [Lasix] 40 mg PO QAM 07/27/23 08/18/23 History Metoprolol Succinate [Metoprolol 25 mg PO QAM 07/27/23 08/18/23 History Succinate ER] Potassium Chloride [K-Tab ER] 40 meq PO DAILY 08/18/23 08/18/23 History Ibuprofen [Motrin] 800 mg PO Q8H 08/22/23 08/22/23 History Allergies Allergy/AdvReac Type Severity Reaction Status Date / Time No Known Allergies Allergy Verified 08/22/23 07:47 Physical Exam Vitals: Vital Signs Temp Pulse Pulse Resp BP BP Pulse Ox 08/23/23 07:25 97.5 F L 65 18 138/87 96 08/23/23 02:00 97.7 F 71 20 119/79 97 08/22/23 21:00 82 08/22/23 20:00 98.4 F 75 18 124/86 99 08/22/23 15:37 83 134/87 96 08/22/23 15:17 86 142/86 98 08/22/23 15:07 72 139/114 95 08/22/23 14:47 76 92/62 96 08/22/23 14:37 77 134/86 98 08/22/23 14:17 77 124/87 97 08/22/23 14:07 67 127/86 98 08/22/23 13:47 98.0 F 72 17 123/67 95 08/22/23 11:45 68 16 97 08/22/23 11:13 78 12 122/65 98 08/22/23 11:00 75 12 121/58 98 08/22/23 10:45 78 12 117/69 100 08/22/23 10:30 73 12 118/72 100 08/22/23 10:15 74 12 120/74 100 08/22/23 10:03 97.4 F L 83 12 108/64 95 Intake and Output 08/22/23 08/23/23 08/23/23 22:59 06:59 14:59 Intake Total 580 Balance 580 Intake: Oral 580 Other: # Voids 2 GENERAL DESCRIPTION: Middle-aged male lying in bed, no distress. No tachypnea or accessory muscle of respiration use. HEENT: Shows Pallor , no scleral icterus. Oral mucous membrane is dry. No pharyngeal erythema or thrush NECK: Trachea central, no thyromegaly. LUNGS: Unlabored breathing. Clear to auscultation anteriorly. No wheeze or crackle. HEART: S1, S2, regular rate and rhythm. No loud murmur ABDOMEN: Soft, no tenderness , guarding or rigidity, no organomegaly EXTREMITIES: Left leg is currently dressed and or dressing with no drainage on the dressing SKIN: No rash, no masses palpable. NEUROLOGICAL: The patient is awake, alert, oriented x3, mood and affect normal. Results CBC & Chem 7: 08/23/23 08:33 08/23/23 08:33 Labs: Abnormal Lab Results - Last 24 Hours (Table) 08/22/23 08/22/23 08/23/23 Range/Units 15:45 15:45 08:33 RBC 3.44 L 3.40 L (4.30-5.90) m/uL Hgb 8.8 L 9.0 L (13.0-17.5) gm/dL Hct 29.8 L 29.4 L (39.0-53.0) % MCHC 29.5 L 30.4 L (31.0-37.0) g/dL RDW 17.6 H 17.9 H (11.5-15.5) % Neutrophils # 8.4 H 8.6 H (1.3-7.7) k/uL Lymphocytes # 0.5 L 0.7 L (1.0-4.8) k/uL Sodium 130 L (137-145) mmol/L Potassium 3.1 L (3.5-5.1) mmol/L Chloride 97 L (98-107) mmol/L Carbon Dioxide 20 L (22-30) mmol/L Creatinine 0.58 L (0.66-1.25) mg/dL Glucose 141 H (74-99) mg/dL Calcium 8.0 L (8.4-10.2) mg/dL 08/23/23 Range/Units 08:33 RBC (4.30-5.90) m/uL Hgb (13.0-17.5) gm/dL Hct (39.0-53.0) % MCHC (31.0-37.0) g/dL RDW (11.5-15.5) % Neutrophils # (1.3-7.7) k/uL Lymphocytes # (1.0-4.8) k/uL Sodium 132 L (137-145) mmol/L Potassium 3.2 L (3.5-5.1) mmol/L Chloride (98-107) mmol/L Carbon Dioxide (22-30) mmol/L Creatinine 0.51 L (0.66-1.25) mg/dL Glucose 133 H (74-99) mg/dL Calcium 8.3 L (8.4-10.2) mg/dL Assessment and Plan (1) Dehiscence of external surgical wound Current Visit: No Status: Acute Code(s): T81.31XA - DISRUPTION OF EXTERNAL OPERATION (SURGICAL) WOUND, NEC, INIT SNOMED Code(s): 614670747547110 (2) Left leg cellulitis Current Visit: No Status: Acute Code(s): L03.116 - CELLULITIS OF LEFT LOWER LIMB SNOMED Code(s): 91694954343428930 (3) Wound of left lower extremity Current Visit: No Status: Acute Code(s): S81.802A - UNSPECIFIED OPEN WOUND, LEFT LOWER LEG, INITIAL ENCOUNTER SNOMED Code(s): 26922687436753974 Plan: 1patient being admitted to hospital with left lower extremity infected wound with wound dehiscence and purulent drainage status post excisional debridement with cultures currently pending we will need to cover for resistant gram- positive as well as gram-negative pathogen 2-blood culture has been requested and local cultures will be followed 3-check inflammatory markers 4-we will start empiric the patient on vancomycin and cefepime pending cultures completion with the discharge antibiotic on the basis of final culture Question concern answered We will follow on clinical condition and cultures to further adjust medication if needed Thank you for this consultation we will follow the patient along with you Dictation was produced using [employer] dictation software. please excuse any grammatical, word or spelling errors.
[2023-08-24] MEDS: PANTOPRAZOLE 40 MG TABLET PO SCH (06:31)
--- NOTE | 2023-08-24 08:11 | P.PN ---
Subjective Progress Note Date: 08/24/23 08/22/2023 this is a 63-year-old gentleman with past medical history significant for PAD, multiple vascular procedures, status post excisional debridement with wound VAC application of left lower extremity secondary to skin dehiscence, edema and infected wound, left great toe ischemia. Tolerated procedure well. Maintained on IV antibiotics of cefepime , vancomycin as per infectious disease. Afebrile, normal WBC. Labs ordered. pain controlled. Denies chest pain, palpitations or shortness of breath. Maintaining O2 sats in the high 90s on 2 L nasal cannula. 08/23/2023 pain controlled on current med regimen Eugene. Afebrile, normal WBC. Deep tissue cultures pending. Maintain on IV antibiotics as per infectious disease. Renal function stable. Potassium 3.2, supplements ordered. CRP pending. 08/24/2023 preliminary wound culture growing gram-negative bacilli. Afebrile, elevated ESR 59 and CRP 27, continues on IV antibiotics of cefepime and vancomycin. Labs pending. Pain is controlled. Denies chest pain, palpitations or shortness of breath. Reports occasional minimal cough with clear sputum production. Currently maintaining O2 sats of 98% on 1 L nasal cannula which can be discontinued. Reports he ambulated in the hallway yesterday, tolerating exertion well. Pain controlled on current med regimen of Eugene. Objective - Vital Signs Vital signs: Vital Signs Temp 98.0 F 08/24/23 07:20 Pulse 80 08/24/23 07:20 Resp 16 08/24/23 07:20 BP 120/85 08/24/23 07:20 Pulse Ox 98 08/24/23 07:20 FiO2 Intake & Output 08/23/23 08/24/23 08/24/23 18:59 06:59 18:59 Other: Voiding Method Toilet Urinal # Voids 2 3 - Exam VITAL SIGNS: [As above] GENERAL: Alert and oriented x 3, sitting up in bed, no acute distress. HEENT: Normocephalic. Conjunctivae normal. eyes normal. NECK: Supple, no JVD. CARDIOVASCULAR: S1, S2 regular.No murmur RESPIRATION: Unlabored, equal air entry,CTA. ABDOMEN: Soft, nontender, nondistended. No guarding. Positive bowel sounds. EXTREMITIES: Bilateral lower extremity edema with bilateral Abhijeet wrap dressings, clean dry and intact. Left lower extremity wound VAC present. Left great toe dressing clean dry and intact. NERVOUS SYSTEM: Cranial N 2-12 grossly normal. No focal deficits. Strength and sensation grossly intact. Skin: Warm and dry, no rash Microbiology 08/22/23 10:00 Leg - Left Gram Stain - Preliminary 08/22/23 10:00 Leg - Left Wound Culture - Preliminary Gram Neg Bacilli - Labs CBC & Chem 7: 08/24/23 09:04 08/24/23 09:04 Labs: Abnormal Lab Results - Last 24 Hours (Table) 08/23/23 08/23/23 08/23/23 Range/Units 08:33 08:33 10:05 RBC 3.40 L (4.30-5.90) m/uL Hgb 9.0 L (13.0-17.5) gm/dL Hct 29.4 L (39.0-53.0) % MCHC 30.4 L (31.0-37.0) g/dL RDW 17.9 H (11.5-15.5) % Neutrophils # 8.6 H (1.3-7.7) k/uL Lymphocytes # 0.7 L (1.0-4.8) k/uL ESR 59 H (0-20) mm/Hr Sodium 132 L (137-145) mmol/L Potassium 3.2 L (3.5-5.1) mmol/L Creatinine 0.51 L (0.66-1.25) mg/dL Glucose 133 H (74-99) mg/dL Calcium 8.3 L (8.4-10.2) mg/dL Magnesium (1.6-2.3) mg/dL C-Reactive Protein (<1.0) mg/dL 08/23/23 Range/Units 10:05 RBC (4.30-5.90) m/uL Hgb (13.0-17.5) gm/dL Hct (39.0-53.0) % MCHC (31.0-37.0) g/dL RDW (11.5-15.5) % Neutrophils # (1.3-7.7) k/uL Lymphocytes # (1.0-4.8) k/uL ESR (0-20) mm/Hr Sodium (137-145) mmol/L Potassium (3.5-5.1) mmol/L Creatinine (0.66-1.25) mg/dL Glucose (74-99) mg/dL Calcium (8.4-10.2) mg/dL Magnesium 1.1 L (1.6-2.3) mg/dL C-Reactive Protein 2.7 H (<1.0) mg/dL Microbiology - Last 24 Hours (Table) 08/22/23 10:00 Gram Stain - Preliminary Leg - Left Wound Culture - Preliminary Gram Neg Bacilli Assessment and Plan Assessment: Left lower extremity debridement with wound VAC, secondary to left lower extremity skin dehiscence and wound Atelectasis, postoperative, expected outcome Recent infected, dehisced surgical incision sites in a patient with history of PAD, left great toe dry gangrene, recent external iliac, femoral and popliteal artery endarterectomy with patch angioplasty and left femoral popliteal artery bypass with in situ vein graft. Preliminary wound cultures reporting presumptive staph aures. Status post I&D with washout. MSSA reported per local wound culture. Discharged on 06/23/2023 History of aortic aneurysm with endovascular repair; Not new onset proximal atrial fibrillation as per further review by cardiology. CAD, history of stent placement Essential hypertension Hyperlipidemia Nicotine dependence Daily alcohol use Noncompliance with medication regimen, patient is high risk for readmission Hypokalemia, resolved with supplementation. Iron deficient anemia Hypokalemia Hypomagnesemia Plan: Continue on current medication using ,monitoring and symptomatic treatment. Labs pending-close monitoring of potassium and magnesium .Will supplement electrolytes pending results. Blood and deep tissue cultures finalizing. IV antibiotics as per infectious disease. Wound care team evaluation/recommendations pending. Aggressive pulmonary toileting with incentive spirometer reinforced. Continue to increase ambulation as tolerated. PT evaluation/recommendations pending. The impression and plan of care has been dictated as directed. : I performed a history and examination of this patient, discussed the same with the dictator. I agree with the dictator's note ,documented as a scribe. Any additional findings or plans will be noted.
[2023-08-24 09:39] LABS: African American GFR (CKD) >90 (>60 ml/min/1.73 sqM); Anion Gap 9 mmol/L; Blood Urea Nitrogen 9 mg/dL (9-20); Calcium 8.5 mg/dL (8.4-10.2); Carbon Dioxide 24 mmol/L (22-30); Chloride 102 mmol/L (98-107); Glucose 114 mg/dL (74-99); Magnesium 1.7 mg/dL (1.6-2.3); Non-African American GFR(CKD) >90 (>60 ml/min/1.73 sqM); Potassium 3.4 mmol/L (3.5-5.1); Sodium 135 mmol/L (137-145)
[2023-08-24 09:43] LABS: Anisocytosis Slight; Basophils % (A) 0 %; Eosinophils % (A) 0 %; HCT 28.1 % (39.0-53.0); Hypochromasia Marked; Lymphocytes # (A) 0.6 k/uL (1.0-4.8); Lymphocytes % (A) 6 %; MCH 25.3 pg (25.0-35.0); MCHC 28.6 g/dL (31.0-37.0); MCV 88.6 fL (80.0-100.0); Mean Platelet Volume 9.4; Monocytes # (A) 0.7 k/uL (0-1.0); Monocytes % (A) 7 %; Neutrophils # (A) 8.7 k/uL (1.3-7.7); Neutrophils % (A) 84 %; Platelet Count 276 k/uL (150-450); Poikilocytosis Moderate; RBC 3.17 m/uL (4.30-5.90); RDW 17.5 % (11.5-15.5); WBC 10.3 k/uL (3.8-10.6)
[2023-08-24] MEDS: MAGNESIUM SULFATE-D5W PMX 1 GM in DEXTROSE/WATER 1 100ML.BAG IVPB ONE (10:58)
--- NOTE | 2023-08-24 11:37 | P.CONS ---
History of Present Illness - Reason for Consult Consult date: 08/24/23 wound care - History of Present Illness This is a 63-year-old patient being seen on [facility] [address]. for nonhealing ulceration to the left medial calf and the left great toe. Patient recently had a surgical debridement of both ulcerations and found to have infected tissue present. Deep tissue culture was obtained. Patient did have a negative pressure wound VAC in place to the left medial calf off ulceration. No dressing to the left great toe. Medial calf ulceration measures approximately 418.2 x 5.1 x 0.6 cm with significant amount of slough and nonviable tissue present minimal granulation noted. Due to the minimal granulation negative pressure wound VAC will be discontinued. The great toe ulceration measures approximately 2 x 3 x 0.2 cm with eschar nonviable tissue and no granulation. The area is dry. Review Of Systems: Constitutional: No fever, no chills, no night sweats. No weight change. No weakness, fatigue or lethargy. No daytime sleepiness. Integumentary:reports wounds, no lesions. No rash or pruritus. No unusual bruising. No change in hair or nails. Physical exam: General Appearance: Alert, cooperative, no distress, appears stated age. Skin: See HPI all other Skin color, texture, tugor normal, no rashes or lesions. Neurologic: Alert oriented x3 Assessment: 1. Nonhealing ulceration left calf with muscle involvement without necrosis 2. Nonhealing ulceration left great toe with muscle necrosis 3. Arthrosclerosis with ulceration of calf 4. Arthrosclerosis with ulceration/gangrene of left great toe Plan: 1. Discontinue negative pressure wound VAC. Apply Santyl to the left medial calf ulceration. No dressing to the left great toe ulceration. Patient to follow-up in the wound care center in 1 week. Thank you for the consultation any questions please contact the wound care center Apply to medial left lower extremitiy ulcer. Apply edge to edge, a nickel in depth, saline moisten guaze, dry gauze, rolled gauze and secure with tape. wrap with leigh wrap for swelling. Past Medical History Past Medical History: Coronary Artery Disease (CAD), Chest Pain / Angina, GERD/Reflux, Hyperlipidemia, Hypertension, Myocardial Infarction (MT), Vascular Disorder Additional Past Medical History / Comment(s): AAA. Hx gout. Left leg wound. Last Myocardial Infarction Date:: 2010 History of Any Multi-Drug Resistant Organisms: None Reported Past Surgical History: Heart Catheterization With Stent, Orthopedic Surgery Additional Past Surgical History / Comment(s): LT WRIST SX, UNSURE IF ANY METAL PLACED. Lt.ankle surgery, 11 screws. Stent x1. EXPLORATORY LAPAROTOMY, UNABLE TO REPAIR AAA, Stent to Abdominal Aortic Aneurysm 2022, Lt. fem-pop artery bypass w/ insitu greater saphenous vein graft 06/06/23, leg wound on left with debridement Past Anesthesia/Blood Transfusion Reactions: Previous Problems w/ Anesthesia Additional Past Anesthesia/Blood Transfusion Reaction / Comm: "Takes a lot to put him out.". Pt. states he woke up once during surgery. Date of Last Stent Placement:: 2010 Past Psychological History: Anxiety Additional Psychological History / Comment(s): Anxiety w/ "hospital things". Smoking Status: Current every day smoker Past Alcohol Use History: Daily Additional Past Alcohol Use History / Comment(s): Normally SMOKES 1/2 PACK CIG /WEEK, started smoking age 24. DRINKING 4-5 LIQUOR DRINKS DAILY. Past Drug Use History: Marijuana Additional Drug Use History / Comment(s): Uses marijuana daily, half a joint. Instructed to hold 24 hrs prior to procedure - Past Family History Father Family Medical History: Cancer Additional Family Medical History / Comment(s): AGE 72 STOAMCH CA W/ METS Mother Family Medical History: Hypertension Medications and Allergies Home Medications Medication Instructions Recorded Confirmed Type Atorvastatin [Lipitor] 40 mg PO Q48H 07/27/23 08/18/23 History Furosemide [Lasix] 40 mg PO QAM 07/27/23 08/18/23 History Metoprolol Succinate [Metoprolol 25 mg PO QAM 07/27/23 08/18/23 History Succinate ER] Potassium Chloride [K-Tab ER] 40 meq PO DAILY 08/18/23 08/18/23 History Ibuprofen [Motrin] 800 mg PO Q8H 08/22/23 08/22/23 History Allergies Allergy/AdvReac Type Severity Reaction Status Date / Time No Known Allergies Allergy Verified 08/22/23 07:47 Physical Exam Vitals: Vital Signs Temp Pulse Pulse Resp BP Pulse Ox 08/24/23 07:20 98.0 F 80 16 120/85 98 08/24/23 01:45 98.4 F 88 18 127/83 95 08/23/23 20:00 98.3 F 82 18 164/98 94 L 08/23/23 14:00 97.3 F L 70 18 129/83 96 Intake and Output 08/23/23 08/24/23 08/24/23 22:59 06:59 14:59 Other: # Voids 2 3 Results CBC & Chem 7: 08/24/23 09:04 08/24/23 09:04 Labs: Abnormal Lab Results - Last 24 Hours (Table) 08/23/23 08/23/23 08/24/23 Range/Units 10:05 10:05 09:04 RBC 3.17 L (4.30-5.90) m/uL Hgb 8.0 L (13.0-17.5) gm/dL Hct 28.1 L (39.0-53.0) % MCHC 28.6 L (31.0-37.0) g/dL RDW 17.5 H (11.5-15.5) % ESR 59 H (0-20) mm/Hr Sodium (137-145) mmol/L Potassium (3.5-5.1) mmol/L Creatinine (0.66-1.25) mg/dL Glucose (74-99) mg/dL C-Reactive Protein 2.7 H (<1.0) mg/dL 08/24/23 Range/Units 09:04 RBC (4.30-5.90) m/uL Hgb (13.0-17.5) gm/dL Hct (39.0-53.0) % MCHC (31.0-37.0) g/dL RDW (11.5-15.5) % ESR (0-20) mm/Hr Sodium 135 L (137-145) mmol/L Potassium 3.4 L (3.5-5.1) mmol/L Creatinine 0.54 L (0.66-1.25) mg/dL Glucose 114 H (74-99) mg/dL C-Reactive Protein (<1.0) mg/dL Microbiology - Last 24 Hours (Table) 08/22/23 10:00 Gram Stain - Preliminary Leg - Left Wound Culture - Preliminary Gram Neg Bacilli Assessment and Plan (1) Non-pressure chronic ulcer of other part of left foot with necrosis of muscle Current Visit: Yes Status: Acute Code(s): L97.523 - NON-PRS CHRONIC ULCER OTH PRT LEFT FOOT W NECROSIS OF MUSCLE SNOMED Code(s): 50344432117726275 (2) Atherosclerosis of left lower extremity with ulceration of calf Current Visit: Yes Status: Acute Code(s): I70.242 - ATHSCL [place] ARTERIES OF LEFT LEG W ULCERATION OF CALF SNOMED Code(s): 9043287097 (3) Atherosclerosis of [place] arteries of left leg with ulceration of other part of foot Current Visit: Yes Status: Acute Code(s): I70.245 - ATHSCL [place] ARTERIES OF LEFT LEG W ULCERATION OTH PRT FOOT SNOMED Code(s): 1833297726 (4) Gangrene of toe of left foot Current Visit: No Status: Acute Code(s): I96 - GANGR[place], NOT ELSEWHERE CLASSIFIED SNOMED Code(s): 29038874408733750 (5) Non-pressure chronic ulcer of left calf with muscle involvement without evidence of necrosis Current Visit: No Status: Acute Code(s): L97.225 - NON-PRS CHR ULCER OF LEFT CALF WITH MSL INVL W/O EVD OF NECR SNOMED Code(s): 71778884718875629
[2023-08-24 12:30] LABS: Lymphocytes # (M) 0.82 k/uL (1.0-4.8); Monocytes # (M) 0.72 k/uL (0-1.0); Neutrophils # (M) 8.76 k/uL (1.3-7.7); Neutrophils % (M) 85 %; Nucleated Red Blood Cells 0 /100 WBC (0-0); Total Cells Counted 100
[2023-08-24 12:31] LABS: Poikilocytosis (M) Present
[2023-08-24] MEDS: VANCOMYCIN TROUGH DUE 1 EACH MISC MISCELLANE ONE (12:33)
[2023-08-24] MEDS: HYDROmorphone 0.5 MG/0.5 ML SYRINGE IVP STA ×2 (12:57→13:00)
[2023-08-24] MEDS: COLLAGENASE 250 UNIT/GM OINTMENT 30 GM TUBE TOPICAL SCH (13:00)
--- NOTE | 2023-08-24 13:36 | P.PN ---
Subjective Progress Note Date: 08/24/23 Principal diagnosis: Left lower extremity infection Patient seen and examined today as a follow-up. States he is has some pain in the left lower extremity where the wound VAC is placed. He has good mobility of the left lower extremity. He is afebrile. Preliminary cultures with gram- negative bacilli. He remains on IV antibiotics. Objective - Vital Signs Vital signs: Vital Signs Temp 98.0 F 08/24/23 07:20 Pulse 80 08/24/23 07:20 Resp 16 08/24/23 07:20 BP 120/85 08/24/23 07:20 Pulse Ox 98 08/24/23 07:20 FiO2 Intake & Output 08/23/23 08/24/23 08/24/23 18:59 06:59 18:59 Other: Voiding Method Toilet Urinal # Voids 2 3 - Exam General appearance: The patient is alert, oriented, appears in no acute distress. HET: Head is normocephalic and atraumatic. Pupils are equal and reactive. Neck: Supple. Abdomen: Soft, nondistended. Extremities: Bilateral lower extremities with Abhijeet wrap's from the knee down to toes. Left lower extremity with wound VAC in place. Left great toe dry gangrene, debridement site without any drainage. Patent bypass graft. Neurological: No focal deficits. Strength and sensation are grossly intact. - Labs CBC & Chem 7: 08/24/23 09:04 08/24/23 09:04 Labs: Abnormal Lab Results - Last 24 Hours (Table) 08/23/23 08/23/23 08/24/23 Range/Units 10:05 10:05 09:04 RBC 3.17 L (4.30-5.90) m/uL Hgb 8.0 L (13.0-17.5) gm/dL Hct 28.1 L (39.0-53.0) % MCHC 28.6 L (31.0-37.0) g/dL RDW 17.5 H (11.5-15.5) % ESR 59 H (0-20) mm/Hr Sodium (137-145) mmol/L Potassium (3.5-5.1) mmol/L Creatinine (0.66-1.25) mg/dL Glucose (74-99) mg/dL Magnesium 1.1 L (1.6-2.3) mg/dL C-Reactive Protein 2.7 H (<1.0) mg/dL 08/24/23 Range/Units 09:04 RBC (4.30-5.90) m/uL Hgb (13.0-17.5) gm/dL Hct (39.0-53.0) % MCHC (31.0-37.0) g/dL RDW (11.5-15.5) % ESR (0-20) mm/Hr Sodium 135 L (137-145) mmol/L Potassium 3.4 L (3.5-5.1) mmol/L Creatinine 0.54 L (0.66-1.25) mg/dL Glucose 114 H (74-99) mg/dL Magnesium (1.6-2.3) mg/dL C-Reactive Protein (<1.0) mg/dL Microbiology - Last 24 Hours (Table) 08/22/23 10:00 Gram Stain - Preliminary Leg - Left Wound Culture - Preliminary Gram Neg Bacilli Assessment and Plan Assessment: 1. Left lower extremity skin dehiscence and wound, infected. Status post excisional debridement and wound VAC application 2. Left great toe ischemia status post excisional debridement 3. Bilateral lower extremity edema 4. History of left femoral tibial bypass secondary to critical limb ischemia 5. Hypokalemia Plan: 1. Continue symptomatic and supportive care 2. Replace potassium per protocol 3. Replace magnesium per protocol 4. Daily BMP 5. Continue bilateral lower extremity Abhijeet wrap for compression 6. Consult to medicine for medical management appreciate their recommendations 7. Consult to infectious disease for IV antibiotic recommendations. Appreciate recommendations 8. Consult to wound care clinic. Patient will require outpatient follow-up with wound clinic 9. Local wound care per recommendations from wound clinic 10. Heart healthy diet 11. Encourage ambulation 11. Elevate lower extremities The impression and plan of care has been dictated as directed. Dr. Byrnes I performed a history and examination of this patient, discussed the same with the dictator. I agree with the dictator's note ,documented as a scribe. Any additional findings or plans will be noted.
[2023-08-24] MEDS: POTASSIUM CHLORIDE ER 20 MEQ TAB.ER PO SCH (14:38)
--- NOTE | 2023-08-24 16:52 | P.PN ---
Subjective Progress Note Date: 08/24/23 Principal diagnosis: Reason for follow-up is left leg wound infection Patient is a 63-year-old male with a past medical history significant for hypertension hyperlipidemia reflux coronary artery disease DC vascular disorder patient did have history of left femoral-tibial bypass secondary to critical limb ischemia has been admitted to the hospital after the patient did have a left lower extremity skin dehiscence and wound infection status post excisional debridement and wound VAC application. On today's evaluation that is 08/24/2023, Patient is afebrile this morning and denies any chills, patient mention breathing comfortably and is currently on room air, patient denies any chest pain occasional cough patient denies any abdominal pain no diarrhea no nausea no vomiting, patient has not worsening pain to the left leg wound area. Patient white count is 10.3, creatinine 0.54 local culture currently growing gram-negative bacilli Objective - Vital Signs Vital signs: Vital Signs Temp 98.0 F 08/24/23 07:20 Pulse 80 08/24/23 07:20 Resp 16 08/24/23 07:20 BP 120/85 08/24/23 07:20 Pulse Ox 98 08/24/23 07:20 FiO2 Intake & Output 08/23/23 08/24/23 08/24/23 18:59 06:59 18:59 Other: Voiding Method Toilet Urinal # Voids 2 3 - Exam GENERAL DESCRIPTION: Middle-age male lying in bed in no distress RESPIRATORY SYSTEM: Unlabored breathing , decreased breath sounds at bases HEART: S1 S2 regular rate and rhythm , ABDOMEN: Soft , no tenderness EXTREMITIES: Left leg wound with some slough tissue no foul-smelling drainage - Labs CBC & Chem 7: 08/24/23 09:04 08/24/23 09:04 Labs: Abnormal Lab Results - Last 24 Hours (Table) 08/23/23 08/23/23 08/24/23 Range/Units 10:05 10:05 09:04 RBC 3.17 L (4.30-5.90) m/uL Hgb 8.0 L (13.0-17.5) gm/dL Hct 28.1 L (39.0-53.0) % MCHC 28.6 L (31.0-37.0) g/dL RDW 17.5 H (11.5-15.5) % ESR 59 H (0-20) mm/Hr Sodium (137-145) mmol/L Potassium (3.5-5.1) mmol/L Creatinine (0.66-1.25) mg/dL Glucose (74-99) mg/dL Magnesium 1.1 L (1.6-2.3) mg/dL C-Reactive Protein 2.7 H (<1.0) mg/dL 08/24/23 Range/Units 09:04 RBC (4.30-5.90) m/uL Hgb (13.0-17.5) gm/dL Hct (39.0-53.0) % MCHC (31.0-37.0) g/dL RDW (11.5-15.5) % ESR (0-20) mm/Hr Sodium 135 L (137-145) mmol/L Potassium 3.4 L (3.5-5.1) mmol/L Creatinine 0.54 L (0.66-1.25) mg/dL Glucose 114 H (74-99) mg/dL Magnesium (1.6-2.3) mg/dL C-Reactive Protein (<1.0) mg/dL Microbiology - Last 24 Hours (Table) 08/22/23 10:00 Gram Stain - Preliminary Leg - Left Wound Culture - Preliminary Gram Neg Bacilli Assessment and Plan (1) Dehiscence of external surgical wound Current Visit: No Status: Acute Code(s): T81.31XA - DISRUPTION OF EXTERNAL OPERATION (SURGICAL) WOUND, NEC, INIT SNOMED Code(s): 986804358338243 (2) Left leg cellulitis Current Visit: No Status: Acute Code(s): L03.116 - CELLULITIS OF LEFT LOWER LIMB SNOMED Code(s): 03104677170177036 (3) Wound of left lower extremity Current Visit: No Status: Acute Code(s): S81.802A - UNSPECIFIED OPEN WOUND, LEFT LOWER LEG, INITIAL ENCOUNTER SNOMED Code(s): 56117739106656849 Plan: 1patient being admitted to hospital with left lower extremity infected wound with wound dehiscence and purulent drainage status post excisional debridement with cultures currently pending we will need to cover for resistant gram- positive as well as gram-negative pathogen 2-blood culture has been requested and local cultures currently growing gram- negative bacilli with ID sensitive pending 3-patient to continue with n vancomycin and cefepime pending cultures completion with the discharge antibiotic on the basis of final culture, he will need a PICC line and likely IV antibiotic on discharge Dictation was produced using [employer] dictation software. please excuse any grammatical, word or spelling errors. Time with Patient: Less than 30
[2023-08-25] MEDS: VANCOMYCIN 1,500 MG in SODIUM CHLORIDE 0.9% 500 ML 500 ML IVPB SCH (06:37)
[2023-08-25 08:26] LABS: African American GFR (CKD) >90 (>60 ml/min/1.73 sqM); Anion Gap 6 mmol/L; Blood Urea Nitrogen 10 mg/dL (9-20); Calcium 8.5 mg/dL (8.4-10.2); Carbon Dioxide 24 mmol/L (22-30); Chloride 104 mmol/L (98-107); Glucose 92 mg/dL (74-99); Magnesium 1.7 mg/dL (1.6-2.3); Non-African American GFR(CKD) >90 (>60 ml/min/1.73 sqM); Potassium 4.1 mmol/L (3.5-5.1); Sodium 134 mmol/L (137-145)
[2023-08-25 10:42] LABS: Basophils # (A) 0.09 X 10*3/uL (0.00-0.10); Eosinophils # (A) 0.14 X 10*3/uL (0.04-0.35); Eosinophils % (A) 1.6 %; HCT 27.2 % (39.6-50.0); HGB 7.8 g/dL (13.0-17.0); Lymphocytes # (A) 0.84 X 10*3/uL (0.90-5.00); Lymphocytes % (A) 9.7 %; MCH 25.2 pg (27.0-32.0); MCHC 28.7 g/dL (32.0-37.0); MCV 87.7 FL (80.0-97.0); Mean Platelet Volume 10.7 FL (9.5-12.2); Monocytes # (A) 1.01 X 10*3/uL (0.20-1.00); Monocytes % (A) 11.6 %; NRBC Per 100 WBC 0 X 10*3/uL (0.00-0.01); Neutrophils # (A) 6.52 X 10*3/uL (1.80-7.70); Neutrophils % (A) 75.3 %; Platelet Count 263 X 10*3/uL (140-440); RDW 17.5 % (11.5-14.5); WBC 8.67 X 10*3/uL (4.50-10.00)
[2023-08-25] MEDS ORDERED: Magnesium Replacement Protocol 1 EACH MISC MISCELLANE PRN (11:24)
[2023-08-25] MEDS ORDERED: MAGNESIUM SULFATE-D5W PMX 1 GM in DEXTROSE/WATER 1 100ML.BAG IVPB ONE (11:24)
--- NOTE | 2023-08-25 12:22 | P.PN ---
Subjective Progress Note Date: 08/25/23 Principal diagnosis: Left lower extremity infection Patient seen and examined today as a follow-up. He states he did not sleep well last night. He states he took off his Abhijeet wrap to the right lower extremity because it felt too tight. He has been afebrile. He has been up and ambulating. Patient's WBC 8.6 hemoglobin 7.8 platelet count 263,000 sodium 134 potassium 4.1 magnesium 1.7 Objective - Vital Signs Vital signs: Vital Signs Temp 98.2 F 08/25/23 01:06 Pulse 75 08/25/23 01:06 Resp 17 08/25/23 01:06 BP 128/84 08/25/23 01:06 Pulse Ox 98 08/25/23 01:06 FiO2 Intake & Output 08/24/23 08/25/23 08/25/23 18:59 06:59 18:59 Other: Voiding Method Toilet Toilet Urinal # Voids 3 2 - Exam General appearance: The patient is alert, oriented, appears in no acute distress. HET: Head is normocephalic and atraumatic. Pupils are equal and reactive. Neck: Supple. Abdomen: Soft, nondistended. Extremities: Right lower extremity, swelling improved. Left lower extremity with Abhijeet wrap and dressing in place. Left great toe dry gangrene, debridement site without any drainage. Patent bypass graft. Neurological: No focal deficits. Strength and sensation are grossly intact. - Labs CBC & Chem 7: 08/25/23 07:43 08/25/23 07:43 Labs: Abnormal Lab Results - Last 24 Hours (Table) 08/24/23 08/24/23 Range/Units 09:04 09:04 RBC 3.17 L (4.30-5.90) m/uL Hgb 8.0 L (13.0-17.5) gm/dL Hct 28.1 L (39.0-53.0) % MCHC 28.6 L (31.0-37.0) g/dL RDW 17.5 H (11.5-15.5) % Neutrophils # 8.7 H (1.3-7.7) k/uL Neutrophils # (Manual) 8.76 H (1.3-7.7) k/uL Lymphocytes # 0.6 L (1.0-4.8) k/uL Lymphocytes # (Manual) 0.82 L (1.0-4.8) k/uL Sodium 135 L (137-145) mmol/L Potassium 3.4 L (3.5-5.1) mmol/L Creatinine 0.54 L (0.66-1.25) mg/dL Glucose 114 H (74-99) mg/dL Microbiology - Last 24 Hours (Table) 08/22/23 10:00 Anaerobic Culture - Preliminary Leg - Left 08/22/23 10:00 Gram Stain - Preliminary Leg - Left Wound Culture - Preliminary Pseudomonas aeruginosa Klebsiella pneumoniae Presumptive MRSA 08/23/23 10:05 Blood Culture - Preliminary Blood Assessment and Plan Assessment: 1. Left lower extremity skin dehiscence and wound, infected. Status post excisional debridement and wound VAC application 2. Left great toe ischemia status post excisional debridement 3. Bilateral lower extremity edema 4. History of left femoral tibial bypass secondary to critical limb ischemia 5. Hypokalemia, resolved 6. Hypomagnesemia Plan: 1. Continue symptomatic and supportive care 2. Replace potassium per protocol 3. Replace magnesium per protocol 4. Daily BMP 5. Bilateral JADA hose ordered 6. Consult to medicine for medical management appreciate their recommendations 7. Consult to infectious disease for IV antibiotic recommendations. Appreciate recommendations 8. Consult to wound care clinic. Patient will require outpatient follow-up wit h wound clinic 9. Local wound care per recommendations from wound clinic 10. Heart healthy diet 11. Encourage ambulation 11. Elevate lower extremities 12. Case management following for discharge planning. Recommend subacute rehab for IV antibiotics and wound care Anticipate discharge in 24 to 48 hours. The impression and plan of care has been dictated as directed. Dr. Isaac I performed a history and examination of this patient, discussed the same with the dictator. I agree with the dictator's note ,documented as a scribe. Any additional findings or plans will be noted.
--- NOTE | 2023-08-25 16:55 | P.PN ---
Subjective Progress Note Date: 08/25/23 63-year-old gentleman with past medical history significant for PAD, multiple vascular procedures, status post excisional debridement with wound VAC application of left lower extremity secondary to skin dehiscence, edema and infected wound, left great toe ischemia. Tolerated procedure well. Maintained on IV antibiotics of cefepime , vancomycin as per infectious disease. Afebrile, normal WBC. Labs ordered. pain controlled. Denies chest pain, palpitations or shortness of breath. Maintaining O2 sats in the high 90s on 2 L nasal cannula Objective - Vital Signs Vital signs: Vital Signs Temp 98.2 F 08/25/23 07:33 Pulse 69 08/25/23 07:33 Resp 17 08/25/23 07:33 BP 123/80 08/25/23 07:33 Pulse Ox 99 08/25/23 07:33 FiO2 Intake & Output 08/24/23 08/25/23 08/25/23 18:59 06:59 18:59 Other: Voiding Method Toilet Toilet Urinal # Voids 3 2 - Exam GENERAL: Alert and oriented x 3, sitting up in bed, no acute distress. HEENT: Normocephalic. Conjunctivae normal. eyes normal. NECK: Supple, no JVD. CARDIOVASCULAR: S1, S2 regular.No murmur RESPIRATION: Unlabored, equal air entry,CTA, bilateral bases diminished. ABDOMEN: Soft, nontender . No guarding. Positive bowel sounds. EXTREMITIES: Bilateral lower extremity edema with bilateral Abhijeet wrap dressings, clean dry and intact NERVOUS SYSTEM: Cranial N 2-12 grossly normal. No focal deficits. Strength and sensation grossly intact. Skin: Warm and dry, no rash - Labs CBC & Chem 7: 08/25/23 07:43 08/25/23 07:43 Labs: Abnormal Lab Results - Last 24 Hours (Table) 08/24/23 08/25/23 08/25/23 Range/Units 09:04 07:43 07:43 RBC 3.10 L (4.40-5.60) X 10*6/uL Hgb 7.8 L (13.0-17.0) g/dL Hct 27.2 L (39.6-50.0) % MCH 25.2 L (27.0-32.0) pg MCHC 28.7 L (32.0-37.0) g/dL RDW 17.5 H (11.5-14.5) % Immature Gran # 0.07 H (0.00-0.04) X 10*3/uL Neutrophils # 8.7 H (1.3-7.7) k/uL Neutrophils # (Manual) 8.76 H (1.3-7.7) k/uL Lymphocytes # 0.6 L 0.84 L (1.0-4.8) k/uL Lymphocytes # (Manual) 0.82 L (1.0-4.8) k/uL Monocytes # 1.01 H (0.20-1.00) X 10*3/uL Sodium 134 L (137-145) mmol/L Creatinine 0.62 L (0.66-1.25) mg/dL Microbiology - Last 24 Hours (Table) 08/22/23 10:00 Anaerobic Culture - Preliminary Leg - Left 08/22/23 10:00 Gram Stain - Preliminary Leg - Left Wound Culture - Preliminary Pseudomonas aeruginosa Klebsiella pneumoniae Presumptive MRSA 08/23/23 10:05 Blood Culture - Preliminary Blood Assessment and Plan Assessment: Left lower extremity debridement with wound VAC, secondary to left lower extremity skin dehiscence and wound Recent infected, dehisced surgical incision sites in a patient with history of PAD, left great toe dry gangrene, recent external iliac, femoral and popliteal artery endarterectomy with patch angioplasty and left femoral popliteal artery bypass with in situ vein graft. Preliminary wound cultures reporting presumptive staph aures. Status post I&D with washout. MSSA reported per local wound culture. Discharged on 06/23/2023 History of aortic aneurysm with endovascular repair; Not new onset proximal atrial fibrillation as per further review by cardiology. CAD, history of stent placement Essential hypertension Hyperlipidemia Nicotine dependence Daily alcohol use Noncompliance with medication regimen, patient is high risk for readmission Hypokalemia, resolved with supplementation. Iron deficient anemia Plan: Continue on current medication using ,monitoring and symptomatic treatment. Labs ordered. Bilateral lower extremity edema-maintain Abhijeet wrap for compression. Pain management, DVT prophylaxis, wound care as per primary. Wound care clinic consult in place. IV antibiotics as per infectious disease. Home meds have been reviewed and resumed. Close monitoring of coags, electrolytes and renal function with repeat labs ordered for a.m. Thank you for the consult.
--- NOTE | 2023-08-25 20:32 | XR ---
EXAMINATION TYPE: XR chest 1V DATE OF EXAM: 08/25/2023 HISTORY: Shortness of breath. COMPARISON: 07/29/2023 TECHNIQUE: Single view of the chest is submitted. FINDINGS: Demonstrated are scattered senescent parenchymal change. Pulmonary venous congestion without overt f ailure. Left-sided PICC line is appropriately placed with distal tip overlying the SVC. No evidence f or pneumothorax. There is no evidence for focal infiltrate. The heart is stable. Hilar and mediastinal structures are within normal limits. Degenerative changes are seen of the dorsal spine. IMPRESSION: 1. Chronic changes without evidence for acute pulmonary disease.
[2023-08-25] MEDS: MAGNESIUM SULFATE-D5W PMX 1 GM in DEXTROSE/WATER 1 100ML.BAG IVPB ONE (20:45)
[2023-08-25] MEDS: CEFEPIME 2 GM in SODIUM CHLORIDE 0.9% 100 ML IVPB SCH (22:10)
[2023-08-26] MEDS: TEMAZEPAM 7.5 MG CAP PO PRN (01:56)
[2023-08-26] MEDS: VANCOMYCIN TROUGH DUE 1 EACH MISC MISCELLANE ONE (06:23)
[2023-08-26 07:28] LABS: African American GFR (CKD) >90 (>60 ml/min/1.73 sqM); Magnesium 1.8 mg/dL (1.6-2.3); Non-African American GFR(CKD) >90 (>60 ml/min/1.73 sqM)
--- NOTE | 2023-08-26 15:03 | P.PN ---
Subjective Progress Note Date: 08/25/23 Principal diagnosis: Reason for follow-up is left leg wound infection Patient is a 63-year-old male with a past medical history significant for hypertension hyperlipidemia reflux coronary artery disease [place] vascular disorder patient did have history of left femoral-tibial bypass secondary to critical limb ischemia has been admitted to the hospital after the patient did have a left lower extremity skin dehiscence and wound infection status post excisional debridement and wound VAC application. On today's evaluation that is 08/25/2023,the patient denies any fever or any chills, patient is breathing comfortably on room air, the patient denies chest pain shortness of breath and no significant cough, patient denies abdominal pain, no nausea vomiting or diarrhea. Patient denies any worsening pain to the left lower extremity. Patient white count of 8.67 creatinine 0.62 culture growing presumptive MRSA along with Pseudomonas Objective - Vital Signs Vital signs: Vital Signs Temp 98.0 F 08/25/23 15:37 Pulse 71 08/25/23 15:37 Resp 19 08/25/23 15:37 BP 134/87 08/25/23 15:37 Pulse Ox 100 08/25/23 15:37 FiO2 Intake & Output 08/24/23 08/25/23 08/25/23 18:59 06:59 18:59 Other: Voiding Method Toilet Toilet Toilet Urinal # Voids 3 2 - Exam GENERAL DESCRIPTION: Middle-age male lying in bed in no distress RESPIRATORY SYSTEM: Unlabored breathing , decreased breath sounds at bases HEART: S1 S2 regular rate and rhythm , ABDOMEN: Soft , no tenderness EXTREMITIES: Left leg wound currently dressed no drainage on the dressing - Labs CBC & Chem 7: 08/25/23 07:43 08/26/23 06:11 Labs: Abnormal Lab Results - Last 24 Hours (Table) 08/25/23 08/25/23 Range/Units 07:43 07:43 RBC 3.10 L (4.40-5.60) X 10*6/uL Hgb 7.8 L (13.0-17.0) g/dL Hct 27.2 L (39.6-50.0) % MCH 25.2 L (27.0-32.0) pg MCHC 28.7 L (32.0-37.0) g/dL RDW 17.5 H (11.5-14.5) % Immature Gran # 0.07 H (0.00-0.04) X 10*3/uL Lymphocytes # 0.84 L (0.90-5.00) X 10*3/uL Monocytes # 1.01 H (0.20-1.00) X 10*3/uL Sodium 134 L (137-145) mmol/L Creatinine 0.62 L (0.66-1.25) mg/dL Microbiology - Last 24 Hours (Table) 08/22/23 10:00 Anaerobic Culture - Preliminary Leg - Left 08/22/23 10:00 Gram Stain - Preliminary Leg - Left Wound Culture - Preliminary Pseudomonas aeruginosa Klebsiella pneumoniae Presumptive MRSA 08/23/23 10:05 Blood Culture - Preliminary Blood Assessment and Plan (1) Dehiscence of external surgical wound Current Visit: No Status: Acute Code(s): T81.31XA - DISRUPTION OF EXTERNAL OPERATION (SURGICAL) WOUND, NEC, INIT SNOMED Code(s): 147044207320572 (2) Left leg cellulitis Current Visit: No Status: Acute Code(s): L03.116 - CELLULITIS OF LEFT LOWER LIMB SNOMED Code(s): 95912590328364760 (3) Wound of left lower extremity Current Visit: No Status: Acute Code(s): S81.802A - UNSPECIFIED OPEN WOUND, LEFT LOWER LEG, INITIAL ENCOUNTER SNOMED Code(s): 13626424150115645 Plan: 1patient being admitted to hospital with left lower extremity infected wound with wound dehiscence and purulent drainage status post excisional debridement with cultures currently pending we will need to cover for resistant gram- positive as well as gram-negative pathogen 2-blood culture has been requested and local cultures currently growing gram- negative bacilli as well as presumptive MRSA with ID sensitive pending 3-patient to continue with vancomycin pharmacy to dose and cefepime pending cultures completion Dictation was produced using [employer] dictation software. please excuse any grammatical, word or spelling errors.
--- NOTE | 2023-08-26 15:04 | P.PN ---
Subjective Progress Note Date: 08/26/23 Principal diagnosis: Reason for follow-up is left leg wound infection Patient is a 63-year-old male with a past medical history significant for hypertension hyperlipidemia reflux coronary artery disease [place] vascular disorder patient did have history of left femoral-tibial bypass secondary to critical limb ischemia has been admitted to the hospital after the patient did have a left lower extremity skin dehiscence and wound infection status post excisional debridement and wound VAC application. On today's evaluation that is 08/26/2023,the patient remains to be afebrile, patient is on room air not requiring supplemental oxygen and denies any shortness of breath no chest pain or cough.Patient denies having any nausea or vomiting, no abdominal pain and no diarrhea has been reported, patient pain to left lower extremity wound is currently controlled. No CBC was done today his creatinine 0.6 Vanco trough is 24.8 local culture with Pseudomonas Proteus and MRSA Objective - Vital Signs Vital signs: Vital Signs Temp 98.0 F 08/26/23 07:58 Pulse 72 08/26/23 07:58 Resp 18 08/26/23 08:25 BP 127/86 08/26/23 07:58 Pulse Ox 98 08/26/23 07:58 FiO2 Intake & Output 08/25/23 08/26/23 08/26/23 18:59 06:59 18:59 Intake Total 0 Balance 0 Intake: Intake, IV Titration 0 Amount Cefepime 2 gm In Sodium 0 Chloride 0.9% 100 ml @ 25 mls/hr IVPB 0200,1000, 1800 [facility] Rx#:[id number] Cefepime 2 gm In Sodium 0 Chloride 0.9% 100 ml @ 25 mls/hr IVPB Q8HR [facility] Rx# :[id number] IV Fluid Continuation 1, 0 000 ml @ 0 mls/hr IV .STK -MED ONE Rx#:[id number] Lactated Ringers 1,000 ml 0 @ 20 mls/hr IV .Q24H [facility] Rx#:[id number] Magnesium Sulfate-D5w Pmx 0 1 gm In Dextrose/Water 1 100ml.bag @ 100 mls/hr IVPB ONCE ONE Rx#: [id number] Vancomycin 1,500 mg In 0 Sodium Chloride 0.9% 500 ml 500 ml @ 167 mls/hr IVPB Q12H [facility] Rx#: [id number] Vancomycin 1,500 mg In 0 Sodium Chloride 0.9% 500 ml 500 ml @ 167 mls/hr IVPB Q8H [facility] Rx#: [id number] Other: Voiding Method Toilet Toilet Toilet # Voids 4 # Bowel Movements 1 - Exam GENERAL DESCRIPTION: Middle-age male lying in bed in no distress RESPIRATORY SYSTEM: Unlabored breathing , decreased breath sounds at bases HEART: S1 S2 regular rate and rhythm , ABDOMEN: Soft , no tenderness EXTREMITIES: Left leg wound currently dressed no drainage on the dressing - Labs CBC & Chem 7: 08/25/23 07:43 08/26/23 06:11 Labs: Microbiology - Last 24 Hours (Table) 08/22/23 10:00 Gram Stain - Final Leg - Left Wound Culture - Final Pseudomonas aeruginosa Klebsiella pneumoniae Methicillin resist S. aureus 08/23/23 10:05 Blood Culture - Preliminary Blood Assessment and Plan (1) Dehiscence of external surgical wound Current Visit: No Status: Acute Code(s): T81.31XA - DISRUPTION OF EXTERNAL OPERATION (SURGICAL) WOUND, NEC, INIT SNOMED Code(s): 245714556485668 (2) Left leg cellulitis Current Visit: No Status: Acute Code(s): L03.116 - CELLULITIS OF LEFT LOWER LIMB SNOMED Code(s): 17837775519117563 (3) Wound of left lower extremity Current Visit: No Status: Acute Code(s): S81.802A - UNSPECIFIED OPEN WOUND, LEFT LOWER LEG, INITIAL ENCOUNTER SNOMED Code(s): 85313699206839426 Plan: 1patient being admitted to hospital with left lower extremity infected wound with wound dehiscence and purulent drainage status post excisional debridement with cultures currently pending we will need to cover for resistant gram- positive as well as gram-negative pathogen 2-blood culture has been requested and local cultures currently growing MRSA and Pseudomonas and Proteus 3-patient to continue with vancomycin pharmacy to dose however does need to be discharged on to keep the trough around 15 and cefepime. Dictation was produced using [employer] software. please excuse any grammatical, word or spelling errors. Time with Patient: Less than 30
--- NOTE | 2023-08-26 16:21 | P.PN ---
Subjective Progress Note Date: 08/26/23 63-year-old gentleman with past medical history significant for PAD, multiple vascular procedures, status post excisional debridement with wound VAC application of left lower extremity secondary to skin dehiscence, edema and infected wound, left great toe ischemia. Tolerated procedure well. Maintained on IV antibiotics of cefepime , vancomycin as per infectious disease. Afebrile, normal WBC. Labs ordered. pain controlled. Denies chest pain, palpitations or shortness of breath. Maintaining O2 sats in the high 90s on 2 L nasal cannula 08/26/2023 Patient is seen and evaluated sitting up in bed Vital signs are reviewed and remained stable patient admitted to hospital with left lower extremity infected wound with wound dehiscence and purulent drainage status post excisional debridement with cultures currently pending we will need to cover for resistant gram-positive as well as gram-negative pathogen -blood culture has been requested and local cultures currently growing gram- negative bacilli as well as presumptive MRSA with ID sensitive pending -patient to continue with vancomycin pharmacy to dose and cefepime pending cultures completion Objective - Vital Signs Vital signs: Vital Signs Temp 98.0 F 08/26/23 07:58 Pulse 72 08/26/23 07:58 Resp 18 08/26/23 07:58 BP 127/86 08/26/23 07:58 Pulse Ox 98 08/26/23 07:58 FiO2 Intake & Output 08/25/23 08/26/23 08/26/23 18:59 06:59 18:59 Intake Total 0 Balance 0 Intake: Intake, IV Titration 0 Amount Cefepime 2 gm In Sodium 0 Chloride 0.9% 100 ml @ 25 mls/hr IVPB 0200,1000, 1800 [facility] Rx#:[id number] Cefepime 2 gm In Sodium 0 Chloride 0.9% 100 ml @ 25 mls/hr IVPB Q8HR [facility] Rx# :[id number] IV Fluid Continuation 1, 0 000 ml @ 0 mls/hr IV .STK -MED ONE Rx#:[id number] Lactated Ringers 1,000 ml 0 @ 20 mls/hr IV .Q24H [facility] Rx#:[id number] Magnesium Sulfate-D5w Pmx 0 1 gm In Dextrose/Water 1 100ml.bag @ 100 mls/hr IVPB ONCE ONE Rx#: [id number] Vancomycin 1,500 mg In 0 Sodium Chloride 0.9% 500 ml 500 ml @ 167 mls/hr IVPB Q12H [facility] Rx#: [id number] Vancomycin 1,500 mg In 0 Sodium Chloride 0.9% 500 ml 500 ml @ 167 mls/hr IVPB Q8H [facility] Rx#: [id number] Other: Voiding Method Toilet Toilet # Voids 4 # Bowel Movements 1 - Exam GENERAL: Alert and oriented x 3, sitting up in bed, no acute distress. HEENT: Normocephalic. Conjunctivae normal. eyes normal. NECK: Supple, no JVD. CARDIOVASCULAR: S1, S2 regular.No murmur RESPIRATION: Unlabored, equal air entry,CTA, bilateral bases diminished. ABDOMEN: Soft, nontender . No guarding. Positive bowel sounds. EXTREMITIES: Bilateral lower extremity edema with bilateral Abhijeet wrap dressings, clean dry and intact NERVOUS SYSTEM: Cranial N 2-12 grossly normal. No focal deficits. Strength and sensation grossly intact. Skin: Warm and dry, no rash - Labs CBC & Chem 7: 08/25/23 07:43 08/26/23 06:11 Labs: Abnormal Lab Results - Last 24 Hours (Table) 08/25/23 Range/Units 07:43 RBC 3.10 L (4.40-5.60) X 10*6/uL Hgb 7.8 L (13.0-17.0) g/dL Hct 27.2 L (39.6-50.0) % MCH 25.2 L (27.0-32.0) pg MCHC 28.7 L (32.0-37.0) g/dL RDW 17.5 H (11.5-14.5) % Immature Gran # 0.07 H (0.00-0.04) X 10*3/uL Lymphocytes # 0.84 L (0.90-5.00) X 10*3/uL Monocytes # 1.01 H (0.20-1.00) X 10*3/uL Microbiology - Last 24 Hours (Table) 08/22/23 10:00 Gram Stain - Final Leg - Left Wound Culture - Final Pseudomonas aeruginosa Klebsiella pneumoniae Methicillin resist S. aureus 08/23/23 10:05 Blood Culture - Preliminary Blood Assessment and Plan Assessment: Left lower extremity debridement with wound VAC, secondary to left lower extremity skin dehiscence and wound Recent infected, dehisced surgical incision sites in a patient with history of PAD, left great toe dry gangrene, recent external iliac, femoral and popliteal artery endarterectomy with patch angioplasty and left femoral popliteal artery bypass with in situ vein graft. Preliminary wound cultures reporting presumptive staph aures. Status post I&D with washout. MSSA reported per local wound culture. Discharged on 06/23/2023 History of aortic aneurysm with endovascular repair; Not new onset proximal atrial fibrillation as per further review by cardiology. CAD, history of stent placement Essential hypertension Hyperlipidemia Nicotine dependence Daily alcohol use Noncompliance with medication regimen, patient is high risk for readmission Hypokalemia, resolved with supplementation. Iron deficient anemia Plan: Continue on current medication using ,monitoring and symptomatic treatment. Labs ordered. Bilateral lower extremity edema-maintain Abhijeet wrap for compression. Pain management, DVT prophylaxis, wound care as per primary. Wound care clinic consult in place. IV antibiotics as per infectious disease. Home meds have been reviewed and resumed. Close monitoring of coags, electrolytes and renal function with repeat labs ordered for a.m. Thank you for the consult.
--- NOTE | 2023-08-27 01:18 | P.PN ---
Progress Note - Text Progress Note Date: 08/26/23 Subjective Left lower extremity infection Patient seen and examined today as a follow-up. He is doing well today. No new complaints. Dressings were just changed. Objective General appearance: The patient is alert, oriented, appears in no acute distress. HET: Head is normocephalic and atraumatic. Pupils are equal and reactive. Neck: Supple. Abdomen: Soft, nondistended. Extremities: Right lower extremity, swelling improved. Left lower extremity with Abhijeet wrap and dressing in place, edema improved. Left great toe dry gangrene, debridement site without any drainage. Patent bypass graft. Neurological: No focal deficits. Strength and sensation are grossly intact. Assessment and Plan Assessment: 1. Left lower extremity skin dehiscence and wound, infected. Status post excisional debridement and wound VAC application 2. Left great toe ischemia status post excisional debridement 3. Bilateral lower extremity edema 4. History of left femoral tibial bypass secondary to critical limb ischemia 5. Hypokalemia, resolved 6. Hypomagnesemia Plan: 1. Continue symptomatic and supportive care 2. Continue local wound care 3. Encourage ambulation 4. Elevate lower extremities 5. Case management following for discharge planning. Recommend subacute rehab for IV antibiotics and wound care
[2023-08-27] MEDS: VANCOMYCIN TROUGH DUE 1 EACH MISC MISCELLANE ONE (06:28)
[2023-08-27 06:48] LABS: African American GFR (CKD) >90 (>60 ml/min/1.73 sqM); Anion Gap 9 mmol/L; Blood Urea Nitrogen 12 mg/dL (9-20); Calcium 8.7 mg/dL (8.4-10.2); Carbon Dioxide 22 mmol/L (22-30); Chloride 103 mmol/L (98-107); Glucose 91 mg/dL (74-99); Non-African American GFR(CKD) >90 (>60 ml/min/1.73 sqM); Potassium 3.9 mmol/L (3.5-5.1); Sodium 134 mmol/L (137-145)
[2023-08-27 09:35] LABS: Basophils # (A) 0.09 X 10*3/uL (0.00-0.10); Eosinophils % (A) 2.2 %; HCT 27.8 % (39.6-50.0); Lymphocytes # (A) 0.99 X 10*3/uL (0.90-5.00); Lymphocytes % (A) 10.7 %; MCH 25.1 pg (27.0-32.0); MCHC 28.8 g/dL (32.0-37.0); MCV 87.1 FL (80.0-97.0); Mean Platelet Volume 10.4 FL (9.5-12.2); Monocytes # (A) 1.24 X 10*3/uL (0.20-1.00); Monocytes % (A) 13.4 %; NRBC Per 100 WBC 0 X 10*3/uL (0.00-0.01); Neutrophils # (A) 6.63 X 10*3/uL (1.80-7.70); Neutrophils % (A) 71.7 %; Platelet Count 304 X 10*3/uL (140-440); RBC 3.19 X 10*6/uL (4.40-5.60); RDW 17.7 % (11.5-14.5); WBC 9.24 X 10*3/uL (4.50-10.00)
[2023-08-27] MEDS: VANCOMYCIN 1,500 MG in SODIUM CHLORIDE 0.9% 500 ML 500 ML IVPB SCH (21:21)
[2023-08-28 04:29] LABS: African American GFR (CKD) >90 (>60 ml/min/1.73 sqM); Anion Gap 6 mmol/L; Blood Urea Nitrogen 11 mg/dL (9-20); Calcium 8.8 mg/dL (8.4-10.2); Carbon Dioxide 21 mmol/L (22-30); Chloride 105 mmol/L (98-107); Glucose 85 mg/dL (74-99); Non-African American GFR(CKD) >90 (>60 ml/min/1.73 sqM); Potassium 3.4 mmol/L (3.5-5.1); Sodium 132 mmol/L (137-145)
[2023-08-28] MEDS ORDERED: Potassium Replacement Protocol 1 EACH MISC MISCELLANE PRN (08:00)
[2023-08-28 08:24] LABS: Basophils # (A) 0.11 X 10*3/uL (0.00-0.10); Basophils % (A) 1.2 %; Eosinophils # (A) 0.24 X 10*3/uL (0.04-0.35); Eosinophils % (A) 2.6 %; HCT 31.2 % (39.6-50.0); HGB 8.5 g/dL (13.0-17.0); Lymphocytes # (A) 1.09 X 10*3/uL (0.90-5.00); MCH 24.5 pg (27.0-32.0); MCHC 27.2 g/dL (32.0-37.0); MCV 89.9 FL (80.0-97.0); Mean Platelet Volume 10.8 FL (9.5-12.2); Monocytes # (A) 1.23 X 10*3/uL (0.20-1.00); Monocytes % (A) 13.6 %; NRBC Per 100 WBC 0 X 10*3/uL (0.00-0.01); Neutrophils # (A) 6.34 X 10*3/uL (1.80-7.70); Neutrophils % (A) 69.9 %; Platelet Count 322 X 10*3/uL (140-440); RBC 3.47 X 10*6/uL (4.40-5.60); RDW 17.4 % (11.5-14.5); WBC 9.07 X 10*3/uL (4.50-10.00)
[2023-08-28] MEDS: MAGNESIUM SULFATE-D5W PMX 1 GM in DEXTROSE/WATER 1 100ML.BAG IVPB SCH (09:39)
[2023-08-28] MEDS: POTASSIUM CHLORIDE ER 20 MEQ TAB.ER PO SCH (09:39)
--- NOTE | 2023-08-28 11:15 | P.DS ---
Providers Date of admission: 08/28/23 09:23 Expected date of discharge: 08/28/23 Attending physician: Caden Inman DO Consults: 08/22/23 10:10 Consult Physician Routine Consulting Provider: Elmo Thomas Consult Reason/Comments: Medical management Do you want consulting provider notified?: Yes Consult Physician Urgent Consulting Provider: Nancy Obrien Consult Reason/Comments: Infected Lower extremity wound, antibiotic recs Do you want consulting provider notified?: Yes Primary care physician: Elmo Thomas Hospital Course: 63-year-old male history of left femoral tibial bypass secondary to critical limb ischemia presented for debridement of the left lower leg wound and possible skin substitute on 08/22/2023. However operative findings there were ischemic changes to the wound bed with purulent drainage noted, debridement was performed on left medial wound as well as great toe. Wound VAC was placed to left lower extremity medial wound. Wound measuring 14.2 cm x 5.1 cm x 0.6 cm and great toe wound measuring 2 cm x 3 cm x 0.2 cm. Deep tissue cultures were obtained. He was admitted to the hospital with consultation to infectious disease for antibiotic recommendations and primary medical team for medical management. Wound care clinic was consulted, they had recommended wound VAC be removed and use of Santyl with wet-to-dry dressing changes with outpatient follow-up to wound clinic. Deep tissue cultures positive for Pseudomonas aeruginosa, Klebsiella pneumoniae, methicillin resistant Staph aureus. He has a PICC line that was placed. Currently on cefepime and vancomycin which is recommendations from infectious disease to be discharged on continued IV antibiotics. During his course here he was hypokalemic as well as had low magnesium levels. Has had potassium and magnesium replacement per protocols. Pain has been well-managed. He has been afebrile. He states he has not been sleeping well but other than that he denies any shortness of breath, chest pain, abdominal pain or nausea or vomiting. He has been ambulating in his room with walker. Plan for magnesium 2 g IV replaced today as well as potassium. Exam General appearance: The patient is alert, oriented, appears in no acute distress. HET: Head is normocephalic and atraumatic. Neck: Supple. Heart: Regular. Lungs: Equal expansion, normal respiratory effort. Abdomen: Soft, nontender, nondistended. Extremities: Bilateral lower extremity edema. Bypass patent with Doppler signal. Left lower extremity medial wound with slough tissue and nonviable tissue, granulation noted. Neurological: No focal deficits. Strength and sensation are grossly intact. Assessment 1. Left lower extremity skin dehiscence and wound, infected. Status post excisional debridement and wound VAC application 2. Left great toe ischemia status post excisional debridement 3. Bilateral lower extremity edema 4. History of left femoral tibial bypass secondary to critical limb ischemia 5. Hypokalemia 6. Hypomagnesemia Plan Replace magnesium and potassium per protocol. Discharge to F if medically cleared, continue outpatient IV antibiotics per recommendations from infectious disease. Continue dressing changes daily as ordered. Elevate lower extremities. Apply JADA hose to right lower extremity and keep Abhijeet wrap to left lower extremity. Case management for discharge planning. Patient will need to follow-up with his PCP Dr. Thomas, wound care and Dr. Inman. The impression and plan of care has been dictated as directed. I performed a history and examination of this patient, discussed the same with the dictator. I agree with the dictator's note ,documented as a scribe. Any additional findings or plans will be noted. Procedures: Excisional debridement left lower extremity incisional wound and great toe with negative pressure wound VAC placement Patient Condition at Discharge: Stable Plan - Discharge Summary Discharge Rx Participant: Yes New Discharge Prescriptions: New Escitalopram [Lexapro] 10 mg PO DAILY #30 tab Collagenase [Santyl Ointment] 1 applic TOPICAL DAILY each Cefepime [Maxipime] 2 gm IVPB Q8H #84 each HYDROcodone/APAP 5-325MG [[place] 5-325] 1 each PO Q6HR PRN 3 Days #12 tab PRN Reason: Pain Vancomycin 1,500 mg IVPB Q12HR #56 each Continue Metoprolol Succinate [Metoprolol Succinate ER] 25 mg PO QAM Furosemide [Lasix] 40 mg PO QAM Atorvastatin [Lipitor] 40 mg PO Q48H Potassium Chloride [K-Tab ER] 40 meq PO DAILY Discontinued Ibuprofen [Motrin] 800 mg PO Q8H Discharge Medication List Atorvastatin [Lipitor] 40 mg PO Q48H 07/27/23 [History] Furosemide [Lasix] 40 mg PO QAM 07/27/23 [History] Metoprolol Succinate [Metoprolol Succinate ER] 25 mg PO QAM 07/27/23 [History] Potassium Chloride [K-Tab ER] 40 meq PO DAILY 08/18/23 [History] Cefepime [Maxipime] 2 gm IVPB Q8H #84 each 08/28/23 [Rx] Collagenase [Santyl Ointment] 1 applic TOPICAL DAILY each 08/28/23 [Rx] Escitalopram [Lexapro] 10 mg PO DAILY #30 tab 08/28/23 [Rx] HYDROcodone/APAP 5-325MG [[place] 5-325] 1 each PO Q6HR PRN 3 Days #12 tab 08/28/23 [Rx] Vancomycin 1,500 mg IVPB Q12HR #56 each 08/28/23 [Rx] Follow up Appointment(s)/Referral(s): Elmo Thomas DO [Primary Care Provider] - 1 Week (ECF please call for folow-up appointment.) Caden Inman DO [STAFF PHYSICIAN] - 09/12/23 1:45 pm [facility], [NON-STAFF] - [facility] [NON-STAFF] - 1 Week (Office stated they will call patient with appointment time and date.) Nancy Obrien MD [STAFF PHYSICIAN] - 1 Week Ambulatory/Diagnostic Orders: Complete Blood Count w/diff [LAB.AMB] Time Frame: 3 Days, Location: None Selected Activity/Diet/Wound Care/Special Instructions: Activity as tolerated, light pressure(offload) to left lower extremity when walking Apply to medial left lower extremity ulcer, apply apply Santyl [id number] a nickel and depth, saline moistened gauze, dry gauze, rolled gauze and secure with tape. Wrap with Abhijeet wrap for swelling or JADA hose JADA hose to right lower extremity Discharge Disposition: TRANSFER TO SNF/ECF
--- NOTE | 2023-08-28 13:35 | P.PN ---
Subjective Progress Note Date: 08/27/23 63-year-old gentleman with past medical history significant for PAD, multiple vascular procedures, status post excisional debridement with wound VAC application of left lower extremity secondary to skin dehiscence, edema and infected wound, left great toe ischemia. Tolerated procedure well. Maintained on IV antibiotics of cefepime , vancomycin as per infectious disease. Afebrile, normal WBC. Labs ordered. pain controlled. Denies chest pain, palpitations or shortness of breath. Maintaining O2 sats in the high 90s on 2 L nasal cannula 08/26/2023 Patient is seen and evaluated sitting up in bed Vital signs are reviewed and remained stable patient admitted to hospital with left lower extremity infected wound with wound dehiscence and purulent drainage status post excisional debridement with cultures currently pending we will need to cover for resistant gram-positive as well as gram-negative pathogen -blood culture has been requested and local cultures currently growing gram- negative bacilli as well as presumptive MRSA with ID sensitive pending -patient to continue with vancomycin pharmacy to dose and cefepime pending cultures completion 08/27/2023 Patient is seen and evaluated sitting up in bed; reports fair pain control patient being admitted to hospital with left lower extremity infected wound with wound dehiscence and purulent drainage status post excisional debridement with cultures currently pending we will need to cover for resistant gram- positive as well as gram-negative pathogen -blood culture has been requested and local cultures currently growing MRSA and Pseudomonas and Proteus -patient to continue with vancomycin pharmacy to dose however does need to be discharged on to keep the trough around 15 and cefepime. Objective - Vital Signs Vital signs: Vital Signs Temp 97.8 F 08/27/23 07:12 Pulse 71 08/27/23 07:12 Resp 18 08/27/23 07:12 BP 129/89 08/27/23 07:12 Pulse Ox 98 08/27/23 07:12 FiO2 Intake & Output 08/26/23 08/27/23 08/27/23 18:59 06:59 18:59 Other: Voiding Method Toilet Toilet # Voids 2 2 - Exam GENERAL: Alert and oriented x 3, sitting up in bed, no acute distress. HEENT: Normocephalic. Conjunctivae normal. eyes normal. NECK: Supple, no JVD. CARDIOVASCULAR: S1, S2 regular.No murmur RESPIRATION: Unlabored, equal air entry,CTA, bilateral bases diminished. ABDOMEN: Soft, nontender . No guarding. Positive bowel sounds. EXTREMITIES: Bilateral lower extremity edema with bilateral Abhijeet wrap dressings, clean dry and intact NERVOUS SYSTEM: Cranial N 2-12 grossly normal. No focal deficits. Strength and sensation grossly intact. Skin: Warm and dry, no rash - Labs CBC & Chem 7: 08/28/23 03:53 08/28/23 03:53 Labs: Abnormal Lab Results - Last 24 Hours (Table) 08/27/23 08/27/23 Range/Units 05:29 05:29 RBC 3.19 L (4.40-5.60) X 10*6/uL Hgb 8.0 L (13.0-17.0) g/dL Hct 27.8 L (39.6-50.0) % MCH 25.1 L (27.0-32.0) pg MCHC 28.8 L (32.0-37.0) g/dL RDW 17.7 H (11.5-14.5) % Immature Gran # 0.09 H (0.00-0.04) X 10*3/uL Monocytes # 1.24 H (0.20-1.00) X 10*3/uL Sodium 134 L (137-145) mmol/L Microbiology - Last 24 Hours (Table) 08/22/23 10:00 Anaerobic Culture - Final Leg - Left 08/23/23 10:05 Blood Culture - Preliminary Blood Assessment and Plan Assessment: Left lower extremity debridement with wound VAC, secondary to left lower extremity skin dehiscence and wound Recent infected, dehisced surgical incision sites in a patient with history of PAD, left great toe dry gangrene, recent external iliac, femoral and popliteal artery endarterectomy with patch angioplasty and left femoral popliteal artery bypass with in situ vein graft. Preliminary wound cultures reporting presumptive staph aures. Status post I&D with washout. MSSA reported per local wound culture. Discharged on 06/23/2023 History of aortic aneurysm with endovascular repair; Not new onset proximal atrial fibrillation as per further review by cardiology. CAD, history of stent placement Essential hypertension Hyperlipidemia Nicotine dependence Daily alcohol use Noncompliance with medication regimen, patient is high risk for readmission Hypokalemia, resolved with supplementation. Iron deficient anemia Plan: Continue on current medication using ,monitoring and symptomatic treatment. Labs ordered. Bilateral lower extremity edema-maintain Abhijeet wrap for compression. Pain management, DVT prophylaxis, wound care as per primary. Wound care clinic consult in place. IV antibiotics as per infectious disease. Home meds have been reviewed and resumed. Close monitoring of coags, electrolytes and renal function with repeat labs ordered for a.m. Thank you for the consult.
[2023-08-28] MEDS: ZINC OXIDE PASTE (Z-GUARD) 1 APPLIC TOPICAL ONE (14:54)
--- NOTE | 2023-08-28 18:05 | P.PN ---
Subjective Progress Note Date: 08/27/23 Principal diagnosis: Reason for follow-up is left leg wound infection Patient is a 63-year-old male with a past medical history significant for hypertension hyperlipidemia reflux coronary artery disease MD vascular disorder patient did have history of left femoral-tibial bypass secondary to critical limb ischemia has been admitted to the hospital after the patient did have a left lower extremity skin dehiscence and wound infection status post excisional debridement and wound VAC application. On today's evaluation that is 08/27/2023, the patient continues to be afebrile, the patient is on room air and breathing comfortably, the Pt denies having any chest pain or cough, the patient denies having any abdominal pain no vomiting or any diarrhea pain to left lower extremity is currently controlled. Patient white count is 9.24 creatinine 0.76 Objective - Vital Signs Vital signs: Vital Signs Temp 97.8 F 08/27/23 07:12 Pulse 71 08/27/23 07:12 Resp 18 08/27/23 07:12 BP 129/89 08/27/23 07:12 Pulse Ox 98 08/27/23 07:12 FiO2 Intake & Output 08/26/23 08/27/23 08/27/23 18:59 06:59 18:59 Other: Voiding Method Toilet Toilet # Voids 2 2 - Exam GENERAL DESCRIPTION: Middle-age male lying in bed in no distress RESPIRATORY SYSTEM: Unlabored breathing , decreased breath sounds at bases HEART: S1 S2 regular rate and rhythm , ABDOMEN: Soft , no tenderness EXTREMITIES: Left leg wound currently dressed no drainage on the dressing - Labs CBC & Chem 7: 08/28/23 03:53 08/28/23 03:53 Labs: Abnormal Lab Results - Last 24 Hours (Table) 08/27/23 08/27/23 Range/Units 05:29 05:29 RBC 3.19 L (4.40-5.60) X 10*6/uL Hgb 8.0 L (13.0-17.0) g/dL Hct 27.8 L (39.6-50.0) % MCH 25.1 L (27.0-32.0) pg MCHC 28.8 L (32.0-37.0) g/dL RDW 17.7 H (11.5-14.5) % Immature Gran # 0.09 H (0.00-0.04) X 10*3/uL Monocytes # 1.24 H (0.20-1.00) X 10*3/uL Sodium 134 L (137-145) mmol/L Microbiology - Last 24 Hours (Table) 08/22/23 10:00 Anaerobic Culture - Final Leg - Left 08/23/23 10:05 Blood Culture - Preliminary Blood Assessment and Plan (1) Dehiscence of external surgical wound Current Visit: No Status: Acute Code(s): T81.31XA - DISRUPTION OF EXTERNAL OPERATION (SURGICAL) WOUND, NEC, INIT SNOMED Code(s): 869980113727384 (2) Left leg cellulitis Current Visit: No Status: Acute Code(s): L03.116 - CELLULITIS OF LEFT LOWER LIMB SNOMED Code(s): 36984463758000507 (3) Wound of left lower extremity Current Visit: No Status: Acute Code(s): S81.802A - UNSPECIFIED OPEN WOUND, LEFT LOWER LEG, INITIAL ENCOUNTER SNOMED Code(s): 08205018597286799 Plan: 1patient being admitted to hospital with left lower extremity infected wound with wound dehiscence and purulent drainage status post excisional debridement with cultures currently pending we will need to cover for resistant gram- positive as well as gram-negative pathogen 2-blood culture has been requested and local cultures currently growing MRSA and Pseudomonas and Proteus 3-patient to continue with vancomycin pharmacy to dose along with cefepime currently waiting for outpatient IV antibiotic arrangement on discharge. Dictation was produced using [email or web address] dictation software. please excuse any grammatical, word or spelling errors. Time with Patient: Less than 30
--- NOTE | 2023-08-28 18:06 | P.PN ---
Subjective Progress Note Date: 08/28/23 Principal diagnosis: Reason for follow-up is left leg wound infection Patient is a 63-year-old male with a past medical history significant for hypertension hyperlipidemia reflux coronary artery disease SD vascular disorder patient did have history of left femoral-tibial bypass secondary to critical limb ischemia has been admitted to the hospital after the patient did have a left lower extremity skin dehiscence and wound infection status post excisional debridement and wound VAC application. On today's evaluation that is 08/28/2023, Patient is afebrile patient is currently on room air and denies having any shortness of breath, the patient denies any chest pain or cough, the patient denies any nausea vomiting did not have any abdominal pain and no diarrhea, patient denies any worsening pain to the left lower leg. Patient white count 9.07, creatinine 0.72 local culture with Pseudomonas Klebsiella and MRSA blood culture negative Objective - Vital Signs Vital signs: Vital Signs Temp 97.9 F 08/28/23 07:12 Pulse 83 08/28/23 07:12 Resp 18 08/28/23 07:12 BP 150/87 08/28/23 07:12 Pulse Ox 98 08/28/23 07:12 FiO2 Intake & Output 08/27/23 08/28/23 08/28/23 18:59 06:59 18:59 Other: # Voids 3 2 - Exam GENERAL DESCRIPTION: Middle-age male lying in bed in no distress RESPIRATORY SYSTEM: Unlabored breathing , decreased breath sounds at bases HEART: S1 S2 regular rate and rhythm , ABDOMEN: Soft , no tenderness EXTREMITIES: Left leg wound currently dressed no drainage on the dressing - Labs CBC & Chem 7: 08/28/23 03:53 08/28/23 03:53 Labs: Abnormal Lab Results - Last 24 Hours (Table) 08/28/23 08/28/23 08/28/23 Range/Units 03:53 03:53 03:53 RBC 3.47 L (4.40-5.60) X 10*6/uL Hgb 8.5 L (13.0-17.0) g/dL Hct 31.2 L (39.6-50.0) % MCH 24.5 L (27.0-32.0) pg MCHC 27.2 L (32.0-37.0) g/dL RDW 17.4 H (11.5-14.5) % Immature Gran # 0.06 H (0.00-0.04) X 10*3/uL Monocytes # 1.23 H (0.20-1.00) X 10*3/uL Basophils # 0.11 H (0.00-0.10) X 10*3/uL Sodium 132 L (137-145) mmol/L Potassium 3.4 L (3.5-5.1) mmol/L Carbon Dioxide 21 L (22-30) mmol/L Magnesium 1.4 L (1.6-2.3) mg/dL Assessment and Plan (1) Dehiscence of external surgical wound Current Visit: No Status: Acute Code(s): T81.31XA - DISRUPTION OF EXTERNAL OPERATION (SURGICAL) WOUND, NEC, INIT SNOMED Code(s): 802633652455801 (2) Left leg cellulitis Current Visit: No Status: Acute Code(s): L03.116 - CELLULITIS OF LEFT LOWER LIMB SNOMED Code(s): 03612235947321622 (3) Wound of left lower extremity Current Visit: No Status: Acute Code(s): S81.802A - UNSPECIFIED OPEN WOUND, LEFT LOWER LEG, INITIAL ENCOUNTER SNOMED Code(s): 60246909283804700 Plan: 1patient being admitted to hospital with left lower extremity infected wound with wound dehiscence and purulent drainage status post excisional debridement with cultures currently pending we will need to cover for resistant gram- positive as well as gram-negative pathogen 2-blood culture has been requested and local cultures currently growing MRSA and Pseudomonas and Proteus 3-patient to continue with vancomycin pharmacy to dose along with cefepime x 4 weeks on discharge because of his extensive infection prescription provided to the disease case manager rn and close outpatient follow-up Dictation was produced using [email or web address] dictation software. please excuse any grammatical, word or spelling errors. Time with Patient: Less than 30
[2023-08-29 04:56] LABS: African American GFR (CKD) >90 (>60 ml/min/1.73 sqM); Anion Gap 6 mmol/L; Blood Urea Nitrogen 11 mg/dL (9-20); Calcium 8.7 mg/dL (8.4-10.2); Carbon Dioxide 20 mmol/L (22-30); Chloride 107 mmol/L (98-107); Glucose 86 mg/dL (74-99); Non-African American GFR(CKD) >90 (>60 ml/min/1.73 sqM); Potassium 3.9 mmol/L (3.5-5.1); Sodium 133 mmol/L (137-145)
[2023-08-29] MEDS: VANCOMYCIN TROUGH DUE 1 EACH MISC MISCELLANE ONE (05:44)
[2023-08-29] MEDS: MAGNESIUM SULFATE-D5W PMX 1 GM in DEXTROSE/WATER 1 100ML.BAG IVPB ONE (09:40)
--- NOTE | 2023-08-29 10:41 | P.PN ---
Subjective Progress Note Date: 08/29/23 08/22/2023 this is a 63-year-old gentleman with past medical history significant for PAD, multiple vascular procedures, status post excisional debridement with wound VAC application of left lower extremity secondary to skin dehiscence, edema and infected wound, left great toe ischemia. Tolerated procedure well. Maintained on IV antibiotics of cefepime , vancomycin as per infectious disease. Afebrile, normal WBC. Labs ordered. pain controlled. Denies chest pain, palpitations or shortness of breath. Maintaining O2 sats in the high 90s on 2 L nasal cannula. 08/23/2023 pain controlled on current med regimen [place]. Afebrile, normal WBC. Deep tissue cultures pending. Maintain on IV antibiotics as per infectious disease. Renal function stable. Potassium 3.2, supplements ordered. CRP pending. 08/24/2023 preliminary wound culture growing gram-negative bacilli. Afebrile, elevated ESR 59 and CRP 27, continues on IV antibiotics of cefepime and vancomycin. Labs pending. Pain is controlled. Denies chest pain, palpitations or shortness of breath. Reports occasional minimal cough with clear sputum production. Currently maintaining O2 sats of 98% on 1 L nasal cannula which can be discontinued. Reports he ambulated in the hallway yesterday, tolerating exertion well. Pain controlled on current med regimen of [place]. 08/29/2023 pain controlled. Denies chest pain, palpitations or shortness of breath. Received magnesium and potassium supplementations yesterday; current potassium 3.9, magnesium 1.7-receiving another 1 g of magnesium IV prior to discharge. Sodium 133. Close monitoring of electrolytes outpatient with outpatient labs ordered.deep tissue cultures positive for Pseudomonas aeruginosa, Klebsiella pneumoniae, methicillin resistant Staph aureus. Maintained on cefepime and vancomycin. Creatinine 0.67. PICC line placed for IV antibiotics outpatient as per infectious disease. Wound VAC removed with recommendations of Maddie and wet-to-dry dressing changes as per wound care team along with recommendations to follow-up outpatient with wound care clinic. Denies chest pain, palpitations or shortness of breath. Attaining O2 sats in the high 90s on room air. Objective - Vital Signs Vital signs: Vital Signs Temp 98.1 F 08/29/23 07:41 Pulse 55 L 08/29/23 07:41 Resp 17 08/29/23 07:41 BP 126/84 08/29/23 07:41 Pulse Ox 98 08/29/23 07:41 FiO2 Intake & Output 08/28/23 08/29/23 08/29/23 18:59 06:59 18:59 Other: Voiding Method Toilet Toilet # Voids 3 2 # Bowel Movements 1 - Labs CBC & Chem 7: 08/28/23 03:53 08/29/23 04:01 Labs: Abnormal Lab Results - Last 24 Hours (Table) 08/29/23 Range/Units 04:01 Sodium 133 L (137-145) mmol/L Carbon Dioxide 20 L (22-30) mmol/L Microbiology - Last 24 Hours (Table) 08/23/23 10:05 Blood Culture - Final Blood Assessment and Plan Assessment: Left lower extremity debridement with wound VAC, secondary to left lower extremity skin dehiscence and wound,deep tissue cultures positive for Pseudomonas aeruginosa, Klebsiella pneumoniae, methicillin resistant Staph aureus. Left great toe ischemia, status post excisional debridement Atelectasis, postoperative, expected outcome, continue using incentive spirometer outpatient as previously advised. Recent infected, dehisced surgical incision sites in a patient with history of P AD, left great toe dry gangrene, recent external iliac, femoral and popliteal artery endarterectomy with patch angioplasty and left femoral popliteal artery bypass with in situ vein graft. Preliminary wound cultures reported presumptive staph aures. Status post I&D with washout. MSSA reported per local wound culture. Discharged on 06/23/2023 History of aortic aneurysm with endovascular repair; Not new onset proximal atrial fibrillation as per further review by cardiology. CAD, history of stent placement Essential hypertension Hyperlipidemia Nicotine dependence Daily alcohol use Noncompliance with medication regimen, patient is high risk for readmission Hypokalemia, resolved with supplementation. Iron deficient anemia Hypokalemia Hypomagnesemia Plan: Continue on current medication using ,monitoring and symptomatic treatment. Medically cleared for DC to subacute rehab. At DC maintain aggressive pulmonary toileting with incentive spirometer as previously advised, every hour x 10 while awake. IV antibiotics as per infectious disease. Follow- up with PCP 1 week after DC from subacute rehab. The impression and plan of care has been dictated as directed. : I performed a history and examination of this patient, discussed the same with the dictator. I agree with the dictator's note ,documented as a scribe. Any additional findings or plans will be noted.
--- NOTE | 2023-08-29 17:01 | P.PN ---
Subjective Progress Note Date: 08/29/23 Principal diagnosis: Reason for follow-up is left leg wound infection Patient is a 63-year-old male with a past medical history significant for hypertension hyperlipidemia reflux coronary artery disease AL vascular disorder patient did have history of left femoral-tibial bypass secondary to critical limb ischemia has been admitted to the hospital after the patient did have a left lower extremity skin dehiscence and wound infection status post excisional debridement and wound VAC application. On today's evaluation that is 08/29/2023, patient has been afebrile, patient is breathing comfortably and is currently on room air, patient denies having any significant cough no chest pain shortness of breath, patient denies nausea vomiting or diarrhea and no abdominal pain, denies any worsening pain to the left leg wound. Patient did have a creatinine 0.67 no CBC was done today Objective - Vital Signs Vital signs: Vital Signs Temp 98.0 F 08/29/23 14:20 Pulse 77 08/29/23 14:20 Resp 18 08/29/23 14:20 BP 120/76 08/29/23 14:20 Pulse Ox 97 08/29/23 14:20 FiO2 Intake & Output 08/28/23 08/29/23 08/29/23 18:59 06:59 18:59 Other: Voiding Method Toilet Toilet Toilet # Voids 3 2 3 # Bowel Movements 1 - Exam GENERAL DESCRIPTION: Middle-age male lying in bed in no distress RESPIRATORY SYSTEM: Unlabored breathing , decreased breath sounds at bases HEART: S1 S2 regular rate and rhythm , ABDOMEN: Soft , no tenderness EXTREMITIES: Left leg wound currently dressed no drainage on the dressing - Labs CBC & Chem 7: 08/28/23 03:53 08/29/23 04:01 Labs: Abnormal Lab Results - Last 24 Hours (Table) 08/29/23 Range/Units 04:01 Sodium 133 L (137-145) mmol/L Carbon Dioxide 20 L (22-30) mmol/L Microbiology - Last 24 Hours (Table) 08/23/23 10:05 Blood Culture - Final Blood Assessment and Plan (1) Dehiscence of external surgical wound Current Visit: No Status: Acute Code(s): T81.31XA - DISRUPTION OF EXTERNAL OPERATION (SURGICAL) WOUND, NEC, INIT SNOMED Code(s): 369032757925972 (2) Left leg cellulitis Current Visit: No Status: Acute Code(s): L03.116 - CELLULITIS OF LEFT LOWER LIMB SNOMED Code(s): 72788212818432948 (3) Wound of left lower extremity Current Visit: No Status: Acute Code(s): S81.802A - UNSPECIFIED OPEN WOUND, LEFT LOWER LEG, INITIAL ENCOUNTER SNOMED Code(s): 63338974465561860 Plan: 1patient being admitted to hospital with left lower extremity infected wound with wound dehiscence and purulent drainage status post excisional debridement with cultures currently pending we will need to cover for resistant gram- positive as well as gram-negative pathogen 2-blood culture has been requested and local cultures currently growing MRSA and Pseudomonas and Proteus 3-patient to continue with vancomycin pharmacy to dose along with cefepime x 4 weeks on discharge, currently waiting for placement and will monitor clinical course closely Dictation was produced using [employer] dictation software. please excuse any grammatical, word or spelling errors. Time with Patient: Less than 30
[2023-08-30 01:46] VITALS: PULSE 76; TEMP 98
[2023-08-30 08:33] VITALS: BP 123/79; RESP 18
--- NOTE | 2023-08-30 10:33 | P.PN ---
Subjective Progress Note Date: 08/30/23 Principal diagnosis: Left lower extremity infection Patient seen and examined today as a follow-up. Patient has been discharged however waiting for authorization from his insurance company for [facility]. He has been afebrile. Morning labs currently pending. Denies any acute changes through the night. Objective - Vital Signs Vital signs: Vital Signs Temp 98.0 F 08/30/23 07:55 Pulse 76 08/30/23 07:55 Resp 18 08/30/23 07:55 BP 123/79 08/30/23 07:55 Pulse Ox 100 08/30/23 07:55 FiO2 Intake & Output 08/29/23 08/30/23 08/30/23 18:59 06:59 18:59 Other: Voiding Method Toilet Toilet Urinal # Voids 4 2 # Bowel Movements 1 - Exam General appearance: The patient is alert, oriented, appears in no acute dis tress. HET: Head is normocephalic and atraumatic. Pupils are equal and reactive. Neck: Supple. Abdomen: Soft, nondistended. Extremities: Bilateral lower extremity swelling up through thigh, left greater than right. Left lower extremity with Abhijeet wrap and dressing in place. Left great toe dry gangrene, debridement site without any drainage. Patent bypass graft. Neurological: No focal deficits. Strength and sensation are grossly intact. - Labs CBC & Chem 7: 08/28/23 03:53 08/29/23 04:01 Assessment and Plan Assessment: 1. Left lower extremity skin dehiscence and wound, infected. Status post excisional debridement and wound VAC application 2. Left great toe ischemia status post excisional debridement 3. Bilateral lower extremity edema 4. History of left femoral tibial bypass secondary to critical limb ischemia 5. Hypokalemia, resolved 6. Hypomagnesemia Plan: 1. Continue symptomatic and supportive care 2. Replace potassium per protocol 3. Replace magnesium per protocol 4. Daily BMP 5. Bilateral thigh-high JADA hose ordered 6. Consult to medicine for medical management appreciate their recommendations 7. Infectious disease following for IV antibiotic recommendations. Appreciate recommendations 8. Local wound care per recommendations from wound clinic 9. Rest of medical management per primary medical team 10. Case management following for discharge planning. Recommend subacute rehab for IV antibiotics and wound care, waiting insurance authorization The impression and plan of care has been dictated as directed. Dr. Isaac I performed a history and examination of this patient, discussed the same with the dictator. I agree with the dictator's note ,documented as a scribe. Any additional findings or plans will be noted.
[2023-08-30 13:16] LABS: African American GFR (CKD) >90 (>60 ml/min/1.73 sqM); Anion Gap 9 mmol/L; Blood Urea Nitrogen 10 mg/dL (9-20); Carbon Dioxide 23 mmol/L (22-30); Chloride 104 mmol/L (98-107); Glucose 103 mg/dL (74-99); Magnesium 1.6 mg/dL (1.6-2.3); Non-African American GFR(CKD) >90 (>60 ml/min/1.73 sqM); Potassium 3.2 mmol/L (3.5-5.1); Sodium 136 mmol/L (137-145)
[2023-08-31] MEDS ORDERED: VANCOMYCIN TROUGH DUE 1 EACH MISC MISCELLANE ONE (05:00)
== END 2023-08-30 14:51 | DRG 857 ==
LOC: OR 06:46 → 4SSUR 09:55 → OR 08-23 10:53 → OBSVTOIN 08-28 09:23
PROVIDERS: ADMIT Surgery; ATTEND Surgery
PROC: 0JBR0ZZ Excision of Left Foot Subcutaneous Tissue and Fascia, Open Approach (ICD-10-PCS; 2023-08-25)
PROC: 02HV33Z Insertion of Infusion Device into Superior Vena Cava, Percutaneous Approach (ICD-10-PCS; 2023-08-25)
PROC: B5181ZA Fluoroscopy of Superior Vena Cava using Low Osmolar Contrast, Guidance (ICD-10-PCS; 2023-08-25)
PROC: B548ZZA Ultrasonography of Superior Vena Cava, Guidance (ICD-10-PCS; 2023-08-25)
PROC: 0JBP0ZZ Excision of Left Lower Leg Subcutaneous Tissue and Fascia, Open Approach (ICD-10-PCS; principal; 2023-08-25 11:35)
DX: T81.49XA Infection following a procedure, other surgical site, initial encounter (principal); I70.262 Atherosclerosis of native arteries of extremities with gangrene, left leg; L03.116 Cellulitis of left lower limb; T81.31XA Disruption of external operation (surgical) wound, not elsewhere classified, initial encounter; J98.11 Atelectasis; L97.225 Non-pressure chronic ulcer of left calf with muscle involvement without evidence of necrosis; E78.5 Hyperlipidemia, unspecified; Y84.8 Other medical procedures as the cause of abnormal reaction of the patient, or of later complication, without mention of misadventure at the time of the procedure; F17.210 Nicotine dependence, cigarettes, uncomplicated; I10 Essential (primary) hypertension; L97.523 Non-pressure chronic ulcer of other part of left foot with necrosis of muscle; E83.42 Hypomagnesemia; E87.6 Hypokalemia; M10.9 Gout, unspecified; I48.0 Paroxysmal atrial fibrillation; Z79.01 Long term (current) use of anticoagulants; B95.61 Methicillin susceptible Staphylococcus aureus infection as the cause of diseases classified elsewhere; Z86.79 Personal history of other diseases of the circulatory system; I25.2 Old myocardial infarction; K21.9 Gastro-esophageal reflux disease without esophagitis; I25.10 Atherosclerotic heart disease of native coronary artery without angina pectoris; Z91.148 Patient's other noncompliance with medication regimen for other reason; Z82.49 Family history of ischemic heart disease and other diseases of the circulatory system; Z87.19 Personal history of other diseases of the digestive system
CPT/HCPCS: 36573; 71045; 80048; 80202; 82565; 83735; 85025; 85652; 86140; 87040; 87070; 87075; 87077; 87186; 87205

== ENCOUNTER 2023-10-03 14:05 | Day surgery (SDC) | payer OTHER ==
[~2023-10-03 14:05] MED LIST changes: -ALPRAZolam 0.25 MG TAB PO PRN; -ALPRAZolam 0.5 MG TAB PO PRN; -DEXAMETHASONE SOD PHOSPHATE 10 MG/ML 1 ML VIAL IV ONE; -HYDROmorphone 0.5 MG/0.5 ML SYRINGE IVP PRN; -LACTATED RINGERS 1,000 ML IV SCH; -MIDAZOLAM (PF) 2 MG/2 ML VIAL IV PRN; +MIDAZOLAM 2 MG/2 ML VIAL IV PRN; -ONDANSETRON 4 MG/2 ML VIAL IVP ONE; +Pre Op ABX Message 1 EACH MISC MISCELLANE ONE; +SCOPOLAMINE 1 MG/72 HR PATCH TRANSDERM ONE; -SCOPOLAMINE 1.5MG/72HR PATCH TRANSDERM ONE; -SODIUM CHLORIDE 0.9% 1,000 ML in EMPTY BAG 1 BAG IV ONE
[2023-10-03] MEDS: ONDANSETRON 4 MG/2 ML VIAL IVP ONE (14:44)
[2023-10-03] MEDS: LACTATED RINGERS 1,000 ML IV SCH (14:44)
[2023-10-03] MEDS: DEXAMETHASONE SOD PHOSPHATE 4 MG/ML 1 ML VIAL IV ONE (14:47)
[2023-10-03] MEDS: IV FLUID CONTINUATION 1,000 ML IV ONE (14:50)
[2023-10-03 14:59] LABS: Anisocytosis Slight; Basophils % (A) 0 %; Eosinophils # (A) 0.3 k/uL (0-0.7); Eosinophils % (A) 3 %; HCT 31.4 % (39.0-53.0); Hypochromasia Marked; Lymphocytes # (A) 0.9 k/uL (1.0-4.8); Lymphocytes % (A) 9 %; MCHC 31.1 g/dL (31.0-37.0); Mean Platelet Volume 7.2; Microcytosis Slight; Monocytes # (A) 0.6 k/uL (0-1.0); Monocytes % (A) 6 %; Neutrophils # (A) 8.4 k/uL (1.3-7.7); Neutrophils % (A) 80 %; Platelet Count 416 k/uL (150-450); Poikilocytosis Slight; RBC 4.06 m/uL (4.30-5.90); RDW 19.5 % (11.5-15.5); WBC 10.4 k/uL (3.8-10.6)
[2023-10-03 15:03] LABS: HGB 9.8 gm/dL (13.0-17.5); MCV 77.3 fL (80.0-100.0)
[2023-10-03 15:45] LABS: ALT 11 U/L (4-49); AST 27 U/L (17-59); African American GFR (CKD) >90 (>60 ml/min/1.73 sqM); Alkaline Phosphatase 202 U/L (38-126); Anion Gap 12 mmol/L; Blood Urea Nitrogen 20 mg/dL (9-20); Calcium 8.3 mg/dL (8.4-10.2); Carbon Dioxide 18 mmol/L (22-30); Chloride 102 mmol/L (98-107); Glucose 103 mg/dL (74-99); Non-African American GFR(CKD) >90 (>60 ml/min/1.73 sqM); Potassium 3.3 mmol/L (3.5-5.1); Sodium 132 mmol/L (137-145); Total Protein 7.1 g/dL (6.3-8.2)
[2023-10-03] MEDS ORDERED: ePHEDrine 50 MG/ML 1 ML VIAL ONE (15:46)
[2023-10-03] MEDS ORDERED: HYDROmorphone (PF) 1 MG/ML ONE (15:46)
[2023-10-03] MEDS ORDERED: LIDOCAINE 1% INJ 10MG/ML (20 ML MDV) ONE (15:46)
[2023-10-03] MEDS ORDERED: PHENYLEPHRINE 10 MG/ML VIAL ONE (15:46)
[2023-10-03] MEDS ORDERED: PROPOFOL 10 MG/ML 20 ML VIAL IV ONE (15:46)
[2023-10-03] MEDS ORDERED: MIDAZOLAM 2 MG/2 ML VIAL ONE (15:46)
[2023-10-03] MEDS ORDERED: fentaNYL (PF) 50 MCG/ML 2 ML AMP ONE (15:46)
[2023-10-03] MEDS: SODIUM CHLORIDE 0.9% 100 ML with ceFAZolin 2,000 MG IV ONE (15:48)
[2023-10-03 16:52] VITALS: TEMP 97
[2023-10-03] MEDS: HYDROmorphone 0.5 MG/0.5 ML SYRINGE IVP PRN (16:54)
--- NOTE | 2023-10-03 17:00 | P.OP ---
Date of Procedure: 10/03/23 Preoperative Diagnosis: Chronic left lower extremity wound Left lower extremity dehiscence with chronic wound Left great toe arterial ulceration Right lower extremity venous ulcer x 2 Postoperative Diagnosis: Same Procedure(s) Performed: Excisional debridement of the left lower leg wound with skin substitute placement Excisional debridement of the left great toe wound Excisional debridement of right lower leg wound x 2 Anesthesia: DAVID Surgeon: Caden Inman Estimated Blood Loss (ml): 5 Pathology: other (Deep tissue culture right lower extremity venous ulcer and left lower extremity wound) Condition: stable Disposition: PACU Indications for Procedure: 63-year-old gentleman with history of ischemic rest pain and peripheral arterial disease with previous femoral tibial bypass and subsequent wound development of his left lower extremity secondary to swelling presents to the hospital for excisional debridement of the left lower extremity wound. He is also having significant swelling in his other extremity which has now caused venous ulcerations and he presents for debridement of those areas as well. He has had debridements of the left lower extremity in the past and would benefit from skin substitute. He did get treated with antibiotics and he states that the area did improve slightly since that time. Operative Findings: Significant fibrinous tissue noted throughout the left lower extremity wound bed with old eschar. There is some areas of bleeding but some areas of ischemia on the medial aspect. No purulent drainage noted. Fibrinous tissue noted at the left great toe with minimal bleeding. Right lower extremity demonstrates fibrinous tissue with ischemic tissue deep and significant 2+ pitting edema with weeping of the wound bed with serous fluid. Wounds measured: left lower extremity 18 x 10 x 0.4 cm left great toe 2.5 x 2.5 x 0.2 cm Right lower leg wound measured 2.5 x 2 x 0.4 cm at the bottom and 1 x 1 x 0.3 cm at the top Description of Procedure: After written and informed consent was obtained for the patient and all risk, benefits and complications were described the patient was taken to the operating room and laid in a supine position. The area of the legs were prepped and drap ed in usual sterile fashion after appropriate anesthetic was performed per the anesthesiologist. A timeout was performed normal fashion antibiotics were administered prior to surgery. Utilizing a curette and 10 blade scalpel excisional debridements were performed of the left lower leg wound down to bleeding subcutaneous tissue. There was no exposed bone or tendon noted. Deep culture was obtained at that time. Once completed the area was irrigated and dried and PuraPly AM was placed within the wound bed x 2 as well as PuraPly powder which was placed within the wound as a paste. Attention was then placed to the great toe and excisional debridement was performed down to bleeding subcutaneous tissue. No exposed bone was noted. Attention was then placed to the right lower extremity and excisional debridement was performed down to bleeding tissue there was some ischemic areas and serous fluid which was cultured. The area was then treated with bacitracin to the venous ulcers as well as the great toe. Adaptic was then placed over the skin substitute and powder and bolstered with Steri-Strips. The area was then dressed with 4 x 4's Kerlix and leigh wraps to both lower extremities. Patient tolerated the procedure well and was sent to PACU for recovery.
[2023-10-03] MEDS: diphenhydrAMINE 50 MG/ML 1 ML VIAL IVP STA (17:21)
[2023-10-03 17:30] VITALS: RESP 16
[2023-10-03 17:45] VITALS: BP 135/84; PULSE 80
== END 2023-10-03 17:58 | disposition home or self-care (01) ==
LOC: OR 14:05
PROVIDERS: ATTEND Surgery
DX: I87.313 Chronic venous hypertension (idiopathic) with ulcer of bilateral lower extremity (principal); T81.31XA Disruption of external operation (surgical) wound, not elsewhere classified, initial encounter; I73.9 Peripheral vascular disease, unspecified; E78.00 Pure hypercholesterolemia, unspecified; I11.9 Hypertensive heart disease without heart failure; I25.10 Atherosclerotic heart disease of native coronary artery without angina pectoris; F17.210 Nicotine dependence, cigarettes, uncomplicated; M10.9 Gout, unspecified; D64.9 Anemia, unspecified; F41.9 Anxiety disorder, unspecified; Z79.899 Other long term (current) drug therapy; Y83.8 Other surgical procedures as the cause of abnormal reaction of the patient, or of later complication, without mention of misadventure at the time of the procedure
CPT/HCPCS: 80053; 85025; 87070; 87205; 87075; 11042; 11043; 15271; J1200; J1100; J2405; J0690; J1170; 87077; 87186

== ENCOUNTER 2023-10-29 16:26 | Inpatient (IN) | payer OTHER ==
--- NOTE | 2023-10-29 17:11 | ED ---
General Adult HPI - General Chief complaint: Extremity Problem,Nontraumatic Stated complaint: Bilateral leg infection Time Seen by Provider: 10/29/23 16:46 Source: patient, EMS, RN notes reviewed Mode of arrival: EMS Limitations: no limitations - History of Present Illness Initial comments: D3-year-[age] male with past medical history of peripheral vascular disease and multiple bilateral lower extremity wounds presents to the emergency department via EMS for chief complaint of lower extremity pain. Patient states that over the past week he has bilateral lower extremity wounds have been increasing in pain, erythema, leakage. Patient had an at home nurse come to his house on Monday and it was recommended that he reports Emergency Department for further evaluation. Patient follows with vascular specialist, Dr. Inman, where he was supposed to have a procedure done this previous Monday however did not make the appointment. Currently, patient is denying any fevers, chills, nausea, vomiting, abdominal pain or weakness. States that he has been taking oral antibiotics as prescribed however is unaware of which medication he is on. - Related Data Home Medications Medication Instructions Recorded Confirmed Atorvastatin [Lipitor] 40 mg PO HS 07/27/23 10/29/23 Furosemide [Lasix] 40 mg PO DAILY 07/27/23 10/29/23 Metoprolol Succinate [Metoprolol 25 mg PO DAILY 07/27/23 10/29/23 Succinate ER] Potassium Chloride [Klor-Con 10 ER] 10 meq PO DAILY 09/29/23 10/29/23 Previous Rx's Medication Instructions Recorded Escitalopram [Lexapro] 10 mg PO DAILY #30 tab 08/28/23 Allergies Allergy/AdvReac Type Severity Reaction Status Date / Time No Known Allergies Allergy Verified 10/29/23 19:28 Review of Systems ROS Statement: Those systems with pertinent positive or pertinent negative responses have been documented in the HPI. ROS Other: All systems not noted in ROS Statement are negative. Past Medical History Past Medical History: Coronary Artery Disease (CAD), Chest Pain / Angina, Hyperlipidemia, Hypertension, Myocardial Infarction ([place]), Skin Disorder, Vascular Disorder Additional Past Medical History / Comment(s): AAA. Hx gout. Left and rt lower leg wounds, rt grt toe wound.- visiting nurse comes to house qod for dressing change . edema to left lower leg Last Myocardial Infarction Date:: 2010 History of Any Multi-Drug Resistant Organisms: VRE Date of last positivie culture/infection: 10/03/23 MDRO Source:: RT LEG Past Surgical History: Heart Catheterization With Stent, Orthopedic Surgery Additional Past Surgical History / Comment(s): LT WRIST SX, UNSURE IF ANY METAL PLACED. Lt.ankle surgery, 11 screws. Stent x1. EXPLORATORY LAPAROTOMY, UNABLE TO REPAIR AAA, Stent to Abdominal Aortic Aneurysm 2022, Lt. fem-pop artery byp ass w/ insitu greater saphenous vein graft 06/06/23, leg wound on left with debridement. Past Anesthesia/Blood Transfusion Reactions: Previous Problems w/ Anesthesia Additional Past Anesthesia/Blood Transfusion Reaction / Comment(s): "Takes a lot to put him out.". Pt. states he woke up once during surgery. Date of Last Stent Placement:: 2010 Past Psychological History: Anxiety Smoking Status: Current every day smoker Past Alcohol Use History: Occasional Past Drug Use History: None Reported - Past Family History Father Family Medical History: Cancer Additional Family Medical History / Comment(s): AGE 72 [place] CA W/ METS Mother Family Medical History: Hypertension General Exam Limitations: no limitations General appearance: alert, in no apparent distress Head exam: Present: atraumatic, normocephalic, normal inspection Eye exam: Present: normal appearance, PERRL, EOMI. Absent: scleral icterus, conjunctival injection, periorbital swelling ENT exam: Present: normal exam, mucous membranes moist Neck exam: Present: normal inspection. Absent: tenderness, meningismus, lymphadenopathy Respiratory exam: Present: normal lung sounds bilaterally. Absent: respiratory distress, wheezes, rales, rhonchi, stridor Cardiovascular Exam: Present: regular rate, normal rhythm, normal heart sounds. Absent: systolic murmur, diastolic murmur, rubs, gallop, clicks GI/Abdominal exam: Present: soft, normal bowel sounds. Absent: distended, tenderness, guarding, rebound, rigid Extremities exam: Present: tenderness, other (bilateral LE multiple erythematous, leaking and purulent leg wounds). Absent: normal inspection Back exam: Present: normal inspection Neurological exam: Present: alert, oriented X3, CN II-XII intact Course Vital Signs 10/29/23 10/29/23 10/29/23 16:54 20:10 22:02 Temperature 97.8 F 97.9 F Pulse Rate 81 111 H Pulse Rate [ 115 H Replenishment Buyer ] Respiratory 18 20 18 Rate Blood Pressure 146/91 142/80 Blood Pressure 131/77 [Left Arm] O2 Sat by Pulse 96 100 Oximetry 10/29/23 22:29 Temperature Pulse Rate 112 H Pulse Rate [ Replenishment Buyer ] Respiratory 19 Rate Blood Pressure 142/80 Blood Pressure [Left Arm] O2 Sat by Pulse 98 Oximetry Medical Decision Making - Medical Decision Making Was pt. sent in by a medical professional or institution (SUSAN Baez, DEPUTY COUNTY COUNSEL, urgent care, hospital, or fdc...) When possible be specific @ -No Did you speak to anyone other than the patient for history (EMS, parent, family, police, friend...)? What history was obtained from this source @ -No Did you review nursing and triage notes (agree or disagree)? Why? @ -I reviewed and agree with nursing and triage notes Were old charts reviewed (outside hosp., previous admission, EMS record, old EKG, old radiological studies, urgent care reports/EKG's, fdc records)? Report findings @ -No old charts were reviewed Differential Diagnosis (chest pain, altered mental status, abdominal pain women, abdominal pain men, vaginal bleeding, weakness, fever, dyspnea, syncope, headache, dizziness, GI bleed, back pain, seizure, CVA, palpatations, mental health, musculoskeletal)? @ -cellulitis, peripheral vascular disease, venous insufficiency, chronic wounds, this list is not all inclusive EKG interpreted by me (3pts min.). @ -none X-rays interpreted by me (1pt min.). @ -None done CT interpreted by me (1pt min.). @ -None done U/S interpreted by me (1pt. min.). @ -None done What testing was considered but not performed or refused? (CT, X-rays, U/S, labs)? Why? @ -None What meds were considered but not given or refused? Why? @ -None Did you discuss the management of the patient with other professionals (professionals i.e. SUSAN Baez, [employer]PUT[employer] COUNSEL, lab, RT, psych nurse, hospital social worker, bus info consultant, teacher, state wildlife officer, heel caser)? Give summary @ -Internal medicine team, Dr. Razo, second admission with infectious disease and vascular on consult. Patient will be started on vancomycin for sepsis with bilateral lower extremity leg wounds. Was smoking cessation discussed for >3mins.? @ -No Was critical care preformed (if so, how long)? @ -No Were there social determinants of health that impacted care today? How? (Homelessness, low income, unemployed, alcoholism, drug addiction, transportation, low edu. Level, literacy, decrease access to med. care, [place] [facility], rehab)? @ -No Was there de-escalation of care discussed even if they declined (Discuss DNR or withdrawal of care, Hospice)? DNR status @ -No What co-morbidities impacted this encounter? (DM, HTN, Smoking, COPD, CAD, Cancer, CVA, ARF, Chemo, Hep., AIDS, mental health diagnosis, sleep apnea, morbid obesity)? @ -None Was patient admitted / discharged? Hospital course, mention meds given and route, prescriptions, significant lab abnormalities, going to OR and other pertinent info. @ -83-year-old male with bilateral lower extremity wounds. On examination patient has severe lower extremity wounds that are clean, erythematous and painf ul to the touch. Patient is provided with IV fluids and pain medication pending laboratory results. CBC reveals a leukocytosis of 16.3, neutrophil 14.8. Additionally, patient is anemic with a hemoglobin of 7.7 and hematocrit of 24.3 which appears to be chronic and does not require transfusion at this time. Lactic acid is elevated at 2.7. Provided with additional fluid bolus. CBC rev eals hypokalemia of 2.4, acidosis with CO2 of 14 and chloride of 110. Hypocalcemia 5.9. Patient is provided with potassium supplementation and is started on vancomycin for concern for sepsis of bilateral lower extremity leg wounds. Spoke with internal medicine patient is admitted with vascular and infectious disease on consult. Discussed with Dr. Gillis. Undiagnosed new problem with uncertain prognosis? @ -No Drug Therapy requiring intensive monitoring for toxicity (Heparin, Nitro, Insulin, Cardizem)? @ -No Were any procedures done? @ -No Diagnosis/symptom? @ -sepsis, bilateral lower extremity wounds, peripheral artery disease. Acute, or Chronic, or Acute on Chronic? @ -acute Uncomplicated (without systemic symptoms) or Complicated (systemic symptoms)? @ -complicated Side effects of treatment? @ -No Exacerbation, Progression, or Severe Exacerbation? @ -No Poses a threat to life or bodily function? How? (Chest pain, [place], [place], pneumonia, PE, COPD, DKA, ARF, appy, cholecystitis, CVA, Diverticulitis, Homicidal, Suicidal, threat to staff... and all critical care pts) @ -sepsis can lead to multiorgan system dysfunction and patchily organ failure. - Lab Data Result diagrams: 10/29/23 18:03 10/29/23 18:03 Lab Results 10/29/23 10/29/23 10/29/23 Range/Units 18:03 18:03 18:03 WBC 16.3 H (3.8-10.6) k/uL RBC 2.89 L (4.30-5.90) m/uL Hgb 7.7 L D (13.0-17.5) gm/dL Hct 24.3 L (39.0-53.0) % MCV 84.1 D (80.0-100.0) fL MCH 26.6 (25.0-35.0) pg MCHC 31.6 (31.0-37.0) g/dL RDW 23.7 H (11.5-15.5) % Plt Count 517 H (150-450) k/uL MPV 7.3 Neutrophils % 91 % Lymphocytes % 5 % Monocytes % 3 % Eosinophils % 0 % Basophils % 0 % Neutrophils # 14.8 H (1.3-7.7) k/uL Lymphocytes # 0.8 L (1.0-4.8) k/uL Monocytes # 0.6 (0-1.0) k/uL Eosinophils # 0.0 (0-0.7) k/uL Basophils # 0.0 (0-0.2) k/uL Hypochromasia Moderate Anisocytosis Moderate Microcytosis Slight Sodium 132 L (137-145) mmol/L Potassium 2.4 L* (3.5-5.1) mmol/L Chloride 110 H (98-107) mmol/L Carbon Dioxide 14 L (22-30) mmol/L Anion Gap 8 mmol/L BUN 9 (9-20) mg/dL Creatinine 0.47 L (0.66-1.25) mg/dL Est GFR (CKD-EPI)AfAm >90 (>60 ml/min/1.73 sqM) Est GFR (CKD-EPI)NonAf >90 (>60 ml/min/1.73 sqM) Glucose 58 L (74-99) mg/dL Lactic Ac Sepsis Rflx Plasma Lactic Acid Ricco 2.7 H* (0.7-2.0) mmol/L Calcium 5.9 L* (8.4-10.2) mg/dL Total Bilirubin 0.5 (0.2-1.3) mg/dL AST 15 L (17-59) U/L ALT <6 (4-49) U/L Alkaline Phosphatase 142 H (38-126) U/L C-Reactive Protein 12.6 H (<1.0) mg/dL Total Protein 5.4 L (6.3-8.2) g/dL Albumin 2.2 L (3.5-5.0) g/dL 10/29/23 Range/Units 18:52 WBC (3.8-10.6) k/uL RBC (4.30-5.90) m/uL Hgb (13.0-17.5) gm/dL Hct (39.0-53.0) % MCV (80.0-100.0) fL MCH (25.0-35.0) pg MCHC (31.0-37.0) g/dL RDW (11.5-15.5) % Plt Count (150-450) k/uL MPV Neutrophils % % Lymphocytes % % Monocytes % % Eosinophils % % Basophils % % Neutrophils # (1.3-7.7) k/uL Lymphocytes # (1.0-4.8) k/uL Monocytes # (0-1.0) k/uL Eosinophils # (0-0.7) k/uL Basophils # (0-0.2) k/uL Hypochromasia Anisocytosis Microcytosis Sodium (137-145) mmol/L Potassium (3.5-5.1) mmol/L Chloride (98-107) mmol/L Carbon Dioxide (22-30) mmol/L Anion Gap mmol/L BUN (9-20) mg/dL Creatinine (0.66-1.25) mg/dL Est GFR (CKD-EPI)AfAm (>60 ml/min/1.73 sqM) Est GFR (CKD-EPI)NonAf (>60 ml/min/1.73 sqM) Glucose (74-99) mg/dL Lactic Ac Sepsis Rflx Y Plasma Lactic Acid Ricco (0.7-2.0) mmol/L Calcium (8.4-10.2) mg/dL Total Bilirubin (0.2-1.3) mg/dL AST (17-59) U/L ALT (4-49) U/L Alkaline Phosphatase (38-126) U/L C-Reactive Protein (<1.0) mg/dL Total Protein (6.3-8.2) g/dL Albumin (3.5-5.0) g/dL Disposition Clinical Impression: Cellulitis, Sepsis, Peripheral arterial disease Disposition: ADMITTED IP TO THIS [facility] Condition: Poor Decision to Admit Reason: Admit from EC Decision Date: 10/29/23 Decision Time: 19:53
[2023-10-29] MEDS: MORPHINE SULFATE 4 MG/ML SYRINGE IVP STA (17:40)
[2023-10-29] MEDS: SODIUM CHLORIDE 0.9% 1,000 ML IV STA ×2 (17:41→20:20)
[2023-10-29 18:38] LABS: Anisocytosis Moderate; Basophils % (A) 0 %; Eosinophils % (A) 0 %; HCT 24.3 % (39.0-53.0); Hypochromasia Moderate; Lymphocytes # (A) 0.8 k/uL (1.0-4.8); Lymphocytes % (A) 5 %; MCH 26.6 pg (25.0-35.0); MCHC 31.6 g/dL (31.0-37.0); Mean Platelet Volume 7.3; Microcytosis Slight; Monocytes # (A) 0.6 k/uL (0-1.0); Monocytes % (A) 3 %; Neutrophils # (A) 14.8 k/uL (1.3-7.7); Neutrophils % (A) 91 %; Platelet Count 517 k/uL (150-450); RBC 2.89 m/uL (4.30-5.90); RDW 23.7 % (11.5-15.5); WBC 16.3 k/uL (3.8-10.6)
[2023-10-29 18:42] LABS: HGB 7.7 gm/dL (13.0-17.5); MCV 84.1 fL (80.0-100.0)
[2023-10-29 18:45] LABS: ALT <6 U/L (4-49); AST 15 U/L (17-59); African American GFR (CKD) >90 (>60 ml/min/1.73 sqM); Albumin 2.2 g/dL (3.5-5.0); Alkaline Phosphatase 142 U/L (38-126); Anion Gap 8 mmol/L; Blood Urea Nitrogen 9 mg/dL (9-20); Carbon Dioxide 14 mmol/L (22-30); Chloride 110 mmol/L (98-107); Glucose 58 mg/dL (74-99); Non-African American GFR(CKD) >90 (>60 ml/min/1.73 sqM); Sodium 132 mmol/L (137-145); Total Bilirubin 0.5 mg/dL (0.2-1.3); Total Protein 5.4 g/dL (6.3-8.2)
[2023-10-29 18:58] LABS: Calcium 5.9 mg/dL (8.4-10.2); Potassium 2.4 mmol/L (3.5-5.1)
[2023-10-29 18:59] LABS: C Reactive Protein 12.6 mg/dL (<1.0)
[2023-10-29] MEDS ORDERED: VANCOMYCIN IV PER PHARMACY 1 EACH MISC MISCELLANE PRN (19:07)
[2023-10-29] MEDS ORDERED: NALOXONE 0.4 MG/ML 1 ML VIAL IV PRN (19:53)
[2023-10-29] MEDS: VANCOMYCIN 1,750 MG in SODIUM CHLORIDE 0.9% 500 ML 500 ML IVPB ONE (20:20)
[2023-10-29] MEDS: POTASSIUM CHLORIDE ER 20 MEQ TAB.ER PO STA (20:21)
[2023-10-29] MEDS: MORPHINE SULFATE 4 MG/ML SYRINGE IV PRN (20:21)
[2023-10-29] MEDS: SODIUM CHLORIDE 0.9% 1,000 ML IV SCH (22:01)
[2023-10-29] MEDS: POTASSIUM CHLORIDE 20 MEQ in WATER FOR INJECTION 1 100ML.BAG IVPB STA (22:01)
[2023-10-29] MEDS: HYDROmorphone 0.5 MG/0.5 ML SYRINGE IVP PRN (23:48)
[2023-10-30] MEDS: METOPROLOL SUCCINATE (ER) 25 MG TAB.ER.24H PO SCH (07:48)
[2023-10-30] MEDS: ESCITALOPRAM 10 MG TAB PO SCH (07:49)
[2023-10-30] MEDS: FUROSEMIDE 40 MG TAB PO SCH (07:49)
[2023-10-30] MEDS: POTASSIUM CHLORIDE ER 10 MEQ TAB.ER.PRT PO SCH (07:49)
[2023-10-30] MEDS: VANCOMYCIN 1,500 MG in SODIUM CHLORIDE 0.9% 500 ML 500 ML IVPB SCH (07:49)
[2023-10-30 09:11] LABS: HCT 25.8 % (39.6-50.0); HGB 7.7 g/dL (13.0-17.0); MCH 24.8 pg (27.0-32.0); MCHC 29.8 g/dL (32.0-37.0); Mean Platelet Volume 9.2 FL (9.5-12.2); NRBC Per 100 WBC 0 X 10*3/uL (0.00-0.01); Platelet Count 468 X 10*3/uL (140-440); RBC 3.11 X 10*6/uL (4.40-5.60); RDW 25.1 % (11.5-14.5); WBC 19.67 X 10*3/uL (4.50-10.00)
[2023-10-30 09:17] LABS: ALT 6 U/L (10-49); AST 15 U/L (14-35); Albumin 2.8 g/dL (3.8-4.9); Albumin/Globulin Ratio 0.85 Ratio (1.60-3.17); Alkaline Phosphatase 176 U/L (41-126); BUN/Creat Ratio 14.29 Ratio (12.00-20.00); Calcium 7.9 mg/dL (8.7-10.3); Chloride 96 mmol/L (96-109); Globulin 3.3 g/dL (1.6-3.3); Glucose 88 mg/dL (70-110); Potassium 3.3 mmol/L (3.5-5.5); Sodium 129 mmol/L (135-145); Total Bilirubin 0.8 mg/dL (0.3-1.2); Total Protein 6.1 g/dL (6.2-8.2)
[2023-10-30 10:37] LABS: Basophils # (A) 0.06 X 10*3/uL (0.00-0.10); Basophils % (A) 0.3 %; Eosinophils # (A) 0.01 X 10*3/uL (0.04-0.35); Eosinophils % (A) 0.1 %; Lymphocytes # (A) 0.62 X 10*3/uL (0.90-5.00); Lymphocytes % (A) 3.2 %; Macrocytosis (M) 2+; Monocytes # (A) 0.98 X 10*3/uL (0.20-1.00); Neutrophils # (A) 17.25 X 10*3/uL (1.80-7.70); Neutrophils % (A) 87.6 %
[2023-10-30] MEDS: MORPHINE SULFATE 4 MG/ML SYRINGE ONE ×2 (11:21→11:35)
[2023-10-30] MEDS: POTASSIUM CHLORIDE ER 10 MEQ TAB.ER.PRT PO ONE (11:21)
[2023-10-30] MEDS: POTASSIUM CHLORIDE ER 20 MEQ TAB.ER PO SCH (15:13)
--- NOTE | 2023-10-30 16:00 | P.HPIM ---
History of Present Illness H&P Date: 10/30/23 Chief Complaint: Worsening bilateral lower legs, increased pain, edema and " split open" This is 63-year-old gentleman with past medical history significant for PAD, multiple vascular procedures including femoral-tibial bypass followed by wound development, dehiscence of his left lower extremity, status post recent excisional debridement of the left lower leg wound with skin substitute placement, excisional debridement of the left great toe wound and excisional debridement of right lower leg wound x 2 on 10/03/[address] Inman, vascular surgery, presented to the ER with worsening bilateral lower extremity pain, edema, reports right lower extremity "split open" over the last week with serous drainage. His visiting nurse evaluated patient on Monday recommending ER. Denies any chest pain, palpitations or shortness of breath. Denies nausea vomiting or diarrhea. Denies abdominal pain. Denies fever or chills. Denies lightheadedness, dizziness or focal deficits. Wound and blood cultures obtained, initiated on vancomycin in the ER. Tmax 101, WBC 16.3, increased to 19.67, CRP 12.6 .hemoglobin 7.7, platelets 468. Sodium 129, potassium 3.3, bicarb 19, BUN 10, creatinine 0.7. Lactic acid 2.2, improved with IV fluid hydration, 1.1. Magnesium 1-repeat level ordered stat. Review of Systems ROS Statement: Those systems with pertinent positive or pertinent negative responses have been documented in the HPI. ROS Other: All systems not noted in ROS Statement are negative. Past Medical History Past Medical History: Coronary Artery Disease (CAD), Chest Pain / Angina, Hyperlipidemia, Hypertension, Myocardial Infarction ([place]), Skin Disorder, Vascular Disorder Additional Past Medical History / Comment(s): AAA. Hx gout. Left and rt lower leg wounds, rt grt toe wound.- visiting nurse comes to house qod for dressing change . edema to left lower leg Last Myocardial Infarction Date:: 2010 History of Any Multi-Drug Resistant Organisms: MRSA, VRE Date of last positivie culture/infection: 10/03/23 MDRO Source:: RT LEG Past Surgical History: Heart Catheterization With Stent, Orthopedic Surgery Additional Past Surgical History / Comment(s): LT WRIST SX, UNSURE IF ANY METAL PLACED. Lt.ankle surgery, 11 screws. Stent x1. EXPLORATORY LAPAROTOMY, UNABLE TO REPAIR AAA, Stent to Abdominal Aortic Aneurysm 2022, Lt. fem-pop artery bypass w/ insitu greater saphenous vein graft 06/06/23, leg wound on left with debridement. Past Anesthesia/Blood Transfusion Reactions: Previous Problems w/ Anesthesia Additional Past Anesthesia/Blood Transfusion Reaction / Comment(s): "Takes a lot to put him out.". Pt. states he woke up once during surgery. Date of Last Stent Placement:: 2010 Past Psychological History: Anxiety Additional Psychological History / Comment(s): Anxiety w/ "hospital things". Smoking Status: Current every day smoker Past Alcohol Use History: Occasional Additional Past Alcohol Use History / Comment(s): Normally SMOKES couple cigarettes a day, started smoking age 24. DRINKING 2-3 LIQUOR DRINKS DAILY. Past Drug Use History: None Reported Additional Drug Use History / Comment(s): Uses marijuana daily, half a joint. Instructed to hold 24 hrs prior to procedure - Past Family History Father Family Medical History: Cancer Additional Family Medical History / Comment(s): AGE 72 [place] CA W/ METS Mother Family Medical History: Hypertension Medications and Allergies Home Medications Medication Instructions Recorded Confirmed Type Atorvastatin [Lipitor] 40 mg PO HS 07/27/23 10/29/23 History Furosemide [Lasix] 40 mg PO DAILY 07/27/23 10/29/23 History Metoprolol Succinate [Metoprolol 25 mg PO DAILY 07/27/23 10/29/23 History Succinate ER] Escitalopram [Lexapro] 10 mg PO DAILY #30 tab 08/28/23 10/29/23 Rx Potassium Chloride [Klor-Con 10 ER] 10 meq PO DAILY 09/29/23 10/29/23 History Allergies Allergy/AdvReac Type Severity Reaction Status Date / Time No Known Allergies Allergy Verified 10/29/23 19:28 Physical Exam Vitals: Vital Signs Temp Pulse Pulse Pulse Resp BP BP 10/30/23 07:30 101.0 F H 107 H 18 122/73 10/30/23 04:00 99.0 F 100 20 143/83 10/30/23 03:43 98.6 F 98 18 118/76 10/30/23 03:00 104 H 16 115/48 10/30/23 01:33 101 H 18 122/74 10/29/23 23:56 123 H 19 132/71 10/29/23 22:29 112 H 19 142/80 10/29/23 22:02 97.9 F 115 H 18 131/77 10/29/23 20:10 111 H 20 142/80 10/29/23 16:54 97.8 F 81 18 146/91 Pulse Ox 10/30/23 07:30 98 10/30/23 04:00 96 10/30/23 03:43 98 10/30/23 03:00 97 10/30/23 01:33 99 10/29/23 23:56 98 10/29/23 22:29 98 10/29/23 22:02 10/29/23 20:10 100 10/29/23 16:54 96 Intake and Output 10/29/23 10/30/23 10/30/23 22:59 06:59 14:59 Intake Total 100 Balance 100 Intake: Oral 100 Other: # Voids 1 1 # Bowel Movements 1 Weight 86.183 kg 86.183 kg PHYSICAL EXAM: VITAL SIGNS: [As above] GENERAL: Alert and oriented x 3, sitting up in bed, no acute distress HEENT: Normocephalic, atraumatic ,conjunctivae normal. eyes normal. NECK: Supple, no JVD. CARDIOVASCULAR: S1, S2 regular. No murmur RESPIRATION: Unlabored, equal air entry breath sounds diminished in the bases. No rhonchi or crackles. No bronchial breathing. ABDOMEN: Soft, nondistended, nontender . No guarding. no masses palpable. No ascites, No hepatosplenomegaly.Bowel sounds heard. LEGS: Bilateral lower extremities 2+ edema, multiple ulcers -purulent drainage, odiferous. Left lower mid leg with large wound ischemic/some necrotic tissue. Refer to documented nsg measurements. positive Doppler DP. NERVOUS SYSTEM: Cranial N 2-12 grossly normal. Moves all 4 limbs. No focal deficits. Strength and sensation grossly intact. Skin: Warm and dry, no rash Results CBC & Chem 7: 10/31/23 06:10 10/31/23 06:10 Labs: Abnormal Lab Results - Last 24 Hours (Table) 10/29/23 10/29/23 10/29/23 Range/Units 18:03 18:03 18:03 WBC 16.3 H (3.8-10.6) k/uL RBC 2.89 L (4.30-5.90) m/uL Hgb 7.7 L D (13.0-17.5) gm/dL Hct 24.3 L (39.0-53.0) % MCH (27.0-32.0) pg MCHC (32.0-37.0) g/dL RDW 23.7 H (11.5-15.5) % Plt Count 517 H (150-450) k/uL MPV (9.5-12.2) FL Immature Gran # (0.00-0.04) X 10*3/uL Neutrophils # 14.8 H (1.3-7.7) k/uL Lymphocytes # 0.8 L (1.0-4.8) k/uL Eosinophils # (0.04-0.35) X 10*3/uL Macrocytosis (manual) Sodium 132 L (137-145) mmol/L Potassium 2.4 L* (3.5-5.1) mmol/L Chloride 110 H (98-107) mmol/L Carbon Dioxide 14 L (22-30) mmol/L Anion Gap (4.00-12.00) mmol/L Creatinine 0.47 L (0.66-1.25) mg/dL Glucose 58 L (74-99) mg/dL Plasma Lactic Acid Ricco 2.7 H* (0.7-2.0) mmol/L Calcium 5.9 L* (8.4-10.2) mg/dL Magnesium (1.6-2.3) mg/dL AST 15 L (17-59) U/L ALT (10-49) U/L Alkaline Phosphatase 142 H (38-126) U/L C-Reactive Protein 12.6 H (<1.0) mg/dL Total Protein 5.4 L (6.3-8.2) g/dL Albumin 2.2 L (3.5-5.0) g/dL Albumin/Globulin Ratio (1.60-3.17) Ratio 10/29/23 10/29/23 10/30/23 Range/Units 20:33 21:52 06:04 WBC 19.67 H (3.8-10.6) k/uL RBC 3.11 L (4.30-5.90) m/uL Hgb 7.7 L (13.0-17.5) gm/dL Hct 25.8 L (39.0-53.0) % MCH 24.8 L (27.0-32.0) pg MCHC 29.8 L (32.0-37.0) g/dL RDW 25.1 H (11.5-15.5) % Plt Count 468 H (150-450) k/uL MPV 9.2 L (9.5-12.2) FL Immature Gran # 0.75 H (0.00-0.04) X 10*3/uL Neutrophils # 17.25 H (1.3-7.7) k/uL Lymphocytes # 0.62 L (1.0-4.8) k/uL Eosinophils # 0.01 L (0.04-0.35) X 10*3/uL Macrocytosis (manual) 2+ A Sodium (137-145) mmol/L Potassium (3.5-5.1) mmol/L Chloride (98-107) mmol/L Carbon Dioxide (22-30) mmol/L Anion Gap (4.00-12.00) mmol/L Creatinine (0.66-1.25) mg/dL Glucose (74-99) mg/dL Plasma Lactic Acid Ricco 2.2 H* (0.7-2.0) mmol/L Calcium (8.4-10.2) mg/dL Magnesium 1.0 L (1.6-2.3) mg/dL AST (17-59) U/L ALT (10-49) U/L Alkaline Phosphatase (38-126) U/L C-Reactive Protein (<1.0) mg/dL Total Protein (6.3-8.2) g/dL Albumin (3.5-5.0) g/dL Albumin/Globulin Ratio (1.60-3.17) Ratio // Range/Units 06:04 WBC (3.8-10.6) k/uL RBC (4.30-5.90) m/uL Hgb (13.0-17.5) gm/dL Hct (39.0-53.0) % MCH (27.0-32.0) pg MCHC (32.0-37.0) g/dL RDW (11.5-15.5) % Plt Count (150-450) k/uL MPV (9.5-12.2) FL Immature Gran # (0.00-0.04) X 10*3/uL Neutrophils # (1.3-7.7) k/uL Lymphocytes # (1.0-4.8) k/uL Eosinophils # (0.04-0.35) X 10*3/uL Macrocytosis (manual) Sodium 129 L (137-145) mmol/L Potassium 3.3 L (3.5-5.1) mmol/L Chloride (98-107) mmol/L Carbon Dioxide 19.0 L (22-30) mmol/L Anion Gap 14.00 H (4.00-12.00) mmol/L Creatinine (0.66-1.25) mg/dL Glucose (74-99) mg/dL Plasma Lactic Acid Ricco (0.7-2.0) mmol/L Calcium 7.9 L (8.4-10.2) mg/dL Magnesium (1.6-2.3) mg/dL AST (17-59) U/L ALT 6 L (10-49) U/L Alkaline Phosphatase 176 H (38-126) U/L C-Reactive Protein (<1.0) mg/dL Total Protein 6.1 L (6.3-8.2) g/dL Albumin 2.8 L (3.5-5.0) g/dL Albumin/Globulin Ratio 0.85 L (1.60-3.17) Ratio Assessment and Plan Assessment: Sepsis secondary to infected bilateral lower extremity wounds, cellulitis, recent excisional debridement of left lower leg wound with skin substitute placement, excisional debridement of the left great toe wound and excisional debridement of the right lower leg wound x 2 on 10/03/[address] Inman , vascular surgery. Lactic acidosis secondary to the above History of Left lower extremity skin dehiscence and wound infection,MSSA, status post excisional debridement and wound VAC. Left great toe ischemia status post excisional debridement History of left femoral tibial bypass secondary to critical limb ischemia History of aortic aneurysm with endovascular repair; Chronic Paroximal atrial fibrillation CAD, history of stent placement Essential hypertension Hyperlipidemia Nicotine dependence Daily alcohol use Noncompliance with medication regimen, patient is high risk for readmission. Iron deficient anemia Hypokalemia Hypomagnesemia Plan: Continue current medication regimen, monitoring and symptomatic treatment. Wound, blood cultures in progress. maintain IV fluid hydration, antibiotics. Close monitoring of renal function and electrolytes. ID and vascular surgery consults in place with recommendations pending. Stat magnesium level pending, will supplement pending results. The impression and plan of care has been dictated as directed. : I performed a history and examination of this patient, discussed the same with the dictator. I agree with the dictator's note ,documented as a scribe. Any additional findings or plans will be noted.
[2023-10-30] MEDS: ATORVASTATIN 40 MG TAB PO SCH (19:49)
[2023-10-31] MEDS: LINEZOLID 600 MG TAB PO SCH (00:02)
[2023-10-31] MEDS: MEROPENEM 1 GM in SODIUM CHLORIDE 0.9% 100 ML IVPB SCH (00:03)
[2023-10-31 07:46] LABS: Anisocytosis Moderate; Basophils % (A) 0 %; Eosinophils # (A) 0.1 k/uL (0-0.7); Eosinophils % (A) 1 %; HCT 26.9 % (39.0-53.0); HGB 8.2 gm/dL (13.0-17.5); Hypochromasia Marked; Lymphocytes # (A) 0.6 k/uL (1.0-4.8); Lymphocytes % (A) 4 %; MCH 25.9 pg (25.0-35.0); MCHC 30.5 g/dL (31.0-37.0); MCV 84.8 fL (80.0-100.0); Mean Platelet Volume 7.1; Microcytosis Slight; Monocytes # (A) 0.6 k/uL (0-1.0); Monocytes % (A) 4 %; Neutrophils # (A) 13.7 k/uL (1.3-7.7); Neutrophils % (A) 91 %; Platelet Count 471 k/uL (150-450); RBC 3.17 m/uL (4.30-5.90); RDW 23.2 % (11.5-15.5); WBC 15.1 k/uL (3.8-10.6)
--- NOTE | 2023-10-31 07:49 | P.CONS ---
History of Present Illness - Reason for Consult Consult date: 10/30/23 Cellulitis sepsis Requesting physician: Rosalia Lowe - Chief Complaint Worsening wound and pain bilateral lower extremity x days - History of Present Illness Patient is a 63-year-old male with a past medical history significant for hypertension hyperlipidemia coronary artery disease, PAD multiple vascular procedures including left femoral-tibial bypass and now has been dealing with the wound to the left lower extremity as well as wound to the right leg being managed in the outpatient setting by vascular surgery and been taking care at home by the home care nurse patient has been sent to the ER by the home care nurse as she was concerned that the wounds were getting infected as apparently the patient did have increasing drainage and foul-smelling patient complaining of increasing pain to bilateral lower extremity wounds over the last few days patient describes the pain to be sharp almost 10 out of 10 in severity without any radiation with associated swelling drainage and increasing drainage from the wound with the symptoms the patient has been evaluated on presentation to hospital the patient initially was afebrile however he did spike a fever of 101 F this morning patient was tachycardic but not hypotensive or hypoxic patient did have a white count of 16.3 which is up to 19.67 today with a left shift creatinine has been normal lactic acid was elevated liver enzymes are normal local culture has been obtained as well as blood cultures currently pending patient was started on vancomycin infectious disease was consulted for further management of antibiotic therapy vascular surgery has also been consulted pending evaluation Review of Systems Positive point and negatives has been mentioned in the HPI, complete review of systems was performed and all other systems are negative Past Medical History Past Medical History: Coronary Artery Disease (CAD), Chest Pain / Angina, Hyperlipidemia, Hypertension, Myocardial Infarction ([place]), Skin Disorder, Vascular Disorder Additional Past Medical History / Comment(s): AAA. Hx gout. Left and rt lower leg wounds, rt grt toe wound.- visiting nurse comes to house qod for dressing change . edema to left lower leg Last Myocardial Infarction Date:: 2010 History of Any Multi-Drug Resistant Organisms: MRSA, VRE Year Discovered:: 10/03/23 MDRO Source:: RT LEG Past Surgical History: Heart Catheterization With Stent, Orthopedic Surgery Additional Past Surgical History / Comment(s): LT WRIST SX, UNSURE IF ANY METAL PLACED. Lt.ankle surgery, 11 screws. Stent x1. EXPLORATORY LAPAROTOMY, UNABLE TO REPAIR AAA, Stent to Abdominal Aortic Aneurysm 2022, Lt. fem-pop artery bypass w/ insitu greater saphenous vein graft 06/06/23, leg wound on left with debridement. Past Anesthesia/Blood Transfusion Reactions: Previous Problems w/ Anesthesia Additional Past Anesthesia/Blood Transfusion Reaction / Comm: "Takes a lot to put him out.". Pt. states he woke up once during surgery. Date of Last Stent Placement:: 2010 Past Psychological History: Anxiety Additional Psychological History / Comment(s): Anxiety w/ "hospital things". Smoking Status: Current every day smoker Past Alcohol Use History: Occasional Additional Past Alcohol Use History / Comment(s): Normally SMOKES couple cigarettes a day, started smoking age 24. DRINKING 2-3 LIQUOR DRINKS DAILY. Past Drug Use History: None Reported Additional Drug Use History / Comment(s): Uses marijuana daily, half a joint. Instructed to hold 24 hrs prior to procedure - Past Family History Father Family Medical History: Cancer Additional Family Medical History / Comment(s): AGE 72 [place] CA W/ METS Mother Family Medical History: Hypertension Medications and Allergies Home Medications Medication Instructions Recorded Confirmed Type Atorvastatin [Lipitor] 40 mg PO HS 07/27/23 10/29/23 History Furosemide [Lasix] 40 mg PO DAILY 07/27/23 10/29/23 History Metoprolol Succinate [Metoprolol 25 mg PO DAILY 07/27/23 10/29/23 History Succinate ER] Escitalopram [Lexapro] 10 mg PO DAILY #30 tab 08/28/23 10/29/23 Rx Potassium Chloride [Klor-Con 10 ER] 10 meq PO DAILY 09/29/23 10/29/23 History Allergies Allergy/AdvReac Type Severity Reaction Status Date / Time No Known Allergies Allergy Verified 10/29/23 19:28 Physical Exam Vitals: Vital Signs Temp Pulse Pulse Pulse Resp BP BP 10/30/23 07:30 101.0 F H 107 H 18 122/73 10/30/23 04:00 99.0 F 100 20 143/83 10/30/23 03:43 98.6 F 98 18 118/76 10/30/23 03:00 104 H 16 115/48 10/30/23 01:33 101 H 18 122/74 10/29/23 23:56 123 H 19 132/71 10/29/23 22:29 112 H 19 142/80 10/29/23 22:02 97.9 F 115 H 18 131/77 10/29/23 20:10 111 H 20 142/80 10/29/23 16:54 97.8 F 81 18 146/91 Pulse Ox 10/30/23 07:30 98 10/30/23 04:00 96 10/30/23 03:43 98 10/30/23 03:00 97 10/30/23 01:33 99 10/29/23 23:56 98 10/29/23 22:29 98 10/29/23 22:02 10/29/23 20:10 100 10/29/23 16:54 96 Intake and Output 10/29/23 10/30/23 10/30/23 22:59 06:59 14:59 Intake Total 100 Balance 100 Intake: Oral 100 Other: # Voids 1 1 # Bowel Movements 1 Weight 86.183 kg 86.183 kg GENERAL DESCRIPTION: Middle-aged male lying in bed, no distress. No tachypnea or accessory muscle of respiration use. HEENT: Shows Pallor , no scleral icterus. Oral mucous membrane is dry. No pharyngeal erythema or thrush NECK: Trachea central, no thyromegaly. LUNGS: Unlabored breathing. Clear to auscultation anteriorly. No wheeze or crackle. HEART: S1, S2, regular rate and rhythm. No loud murmur ABDOMEN: Soft, no tenderness , guarding or rigidity, no organomegaly EXTREMITIES: Left lower extremity did have extensive wound with some slough tissue surrounding swelling and redness and drainage right leg also have a wound with some slough tissue and foul-smelling drainage SKIN: No rash, no masses palpable. NEUROLOGICAL: The patient is awake, alert, oriented x3, mood and affect normal. Results CBC & Chem 7: 10/31/23 06:10 10/30/23 06:04 Labs: Abnormal Lab Results - Last 24 Hours (Table) 10/29/23 10/29/23 10/29/23 Range/Units 18:03 18:03 18:03 WBC 16.3 H (3.8-10.6) k/uL RBC 2.89 L (4.30-5.90) m/uL Hgb 7.7 L D (13.0-17.5) gm/dL Hct 24.3 L (39.0-53.0) % MCH (27.0-32.0) pg MCHC (32.0-37.0) g/dL RDW 23.7 H (11.5-15.5) % Plt Count 517 H (150-450) k/uL MPV (9.5-12.2) FL Immature Gran # (0.00-0.04) X 10*3/uL Neutrophils # 14.8 H (1.3-7.7) k/uL Lymphocytes # 0.8 L (1.0-4.8) k/uL Eosinophils # (0.04-0.35) X 10*3/uL Macrocytosis (manual) Sodium 132 L (137-145) mmol/L Potassium 2.4 L* (3.5-5.1) mmol/L Chloride 110 H (98-107) mmol/L Carbon Dioxide 14 L (22-30) mmol/L Anion Gap (4.00-12.00) mmol/L Creatinine 0.47 L (0.66-1.25) mg/dL Glucose 58 L (74-99) mg/dL Plasma Lactic Acid Ricco 2.7 H* (0.7-2.0) mmol/L Calcium 5.9 L* (8.4-10.2) mg/dL Magnesium (1.6-2.3) mg/dL AST 15 L (17-59) U/L ALT (10-49) U/L Alkaline Phosphatase 142 H (38-126) U/L C-Reactive Protein 12.6 H (<1.0) mg/dL Total Protein 5.4 L (6.3-8.2) g/dL Albumin 2.2 L (3.5-5.0) g/dL Albumin/Globulin Ratio (1.60-3.17) Ratio 10/29/23 10/29/23 10/30/23 Range/Units 20:33 21:52 06:04 WBC 19.67 H (3.8-10.6) k/uL RBC 3.11 L (4.30-5.90) m/uL Hgb 7.7 L (13.0-17.5) gm/dL Hct 25.8 L (39.0-53.0) % MCH 24.8 L (27.0-32.0) pg MCHC 29.8 L (32.0-37.0) g/dL RDW 25.1 H (11.5-15.5) % Plt Count 468 H (150-450) k/uL MPV 9.2 L (9.5-12.2) FL Immature Gran # 0.75 H (0.00-0.04) X 10*3/uL Neutrophils # 17.25 H (1.3-7.7) k/uL Lymphocytes # 0.62 L (1.0-4.8) k/uL Eosinophils # 0.01 L (0.04-0.35) X 10*3/uL Macrocytosis (manual) 2+ A Sodium (137-145) mmol/L Potassium (3.5-5.1) mmol/L Chloride (98-107) mmol/L Carbon Dioxide (22-30) mmol/L Anion Gap (4.00-12.00) mmol/L Creatinine (0.66-1.25) mg/dL Glucose (74-99) mg/dL Plasma Lactic Acid Ricco 2.2 H* (0.7-2.0) mmol/L Calcium (8.4-10.2) mg/dL Magnesium 1.0 L (1.6-2.3) mg/dL AST (17-59) U/L ALT (10-49) U/L Alkaline Phosphatase (38-126) U/L C-Reactive Protein (<1.0) mg/dL Total Protein (6.3-8.2) g/dL Albumin (3.5-5.0) g/dL Albumin/Globulin Ratio (1.60-3.17) Ratio // Range/Units 06:04 WBC (3.8-10.6) k/uL RBC (4.30-5.90) m/uL Hgb (13.0-17.5) gm/dL Hct (39.0-53.0) % MCH (27.0-32.0) pg MCHC (32.0-37.0) g/dL RDW (11.5-15.5) % Plt Count (150-450) k/uL MPV (9.5-12.2) FL Immature Gran # (0.00-0.04) X 10*3/uL Neutrophils # (1.3-7.7) k/uL Lymphocytes # (1.0-4.8) k/uL Eosinophils # (0.04-0.35) X 10*3/uL Macrocytosis (manual) Sodium 129 L (137-145) mmol/L Potassium 3.3 L (3.5-5.1) mmol/L Chloride (98-107) mmol/L Carbon Dioxide 19.0 L (22-30) mmol/L Anion Gap 14.00 H (4.00-12.00) mmol/L Creatinine (0.66-1.25) mg/dL Glucose (74-99) mg/dL Plasma Lactic Acid Ricco (0.7-2.0) mmol/L Calcium 7.9 L (8.4-10.2) mg/dL Magnesium (1.6-2.3) mg/dL AST (17-59) U/L ALT 6 L (10-49) U/L Alkaline Phosphatase 176 H (38-126) U/L C-Reactive Protein (<1.0) mg/dL Total Protein 6.1 L (6.3-8.2) g/dL Albumin 2.8 L (3.5-5.0) g/dL Albumin/Globulin Ratio 0.85 L (1.60-3.17) Ratio Assessment and Plan (1) Bilateral lower leg cellulitis Current Visit: Yes Status: Acute Code(s): L03.116 - CELLULITIS OF LEFT LOWER LIMB; L03.115 - CELLULITIS OF RIGHT LOWER LIMB SNOMED Code(s): 357015749 (2) Open wound of both lower extremities Current Visit: Yes Status: Acute Code(s): S81.801A - UNSPECIFIED OPEN WOUND, RIGHT LOWER LEG, INITIAL ENCOUNTER; S81.802A - UNSPECIFIED OPEN WOUND, LEFT LOWE R LEG, INITIAL ENCOUNTER SNOMED Code(s): 39851679 (3) Sepsis Current Visit: Yes Status: Acute Code(s): A41.9 - SEPSIS, UNSPECIFIED ORGANISM SNOMED Code(s): 00596278 Plan: 1patient presented to hospital with sepsis in this patient who did have a fever tachycardia elevated white count source is likely bilateral lower extremity wound and cellulitis with more extensive wound to the left lower extremity in this patient who did have a history of PAD and has multiple vascular procedure last wound culture done from the right leg has been Pseudomonas and VRE that was done on 10/03/2023. 2patient benefit from vascular surgery evaluation debridement and deep culture. 3discontinue vancomycin. 4we will start the patient on Zyvox and meropenem while waiting for repeat culture to be finalized. We will follow on clinical condition and cultures to further adjust medication if needed Thank you for this consultation we will follow the patient along with you Dictation was produced using [email or web address] dictation software. please excuse any grammatical, word or spelling errors. Time with Patient: Greater than 30
[2023-10-31 07:53] LABS: African American GFR (CKD) >90 (>60 ml/min/1.73 sqM); Anion Gap 1 mmol/L; Blood Urea Nitrogen 12 mg/dL (9-20); Calcium 8.1 mg/dL (8.4-10.2); Carbon Dioxide 20 mmol/L (22-30); Chloride 106 mmol/L (98-107); Glucose 86 mg/dL (74-99); Magnesium 1.2 mg/dL (1.6-2.3); Non-African American GFR(CKD) >90 (>60 ml/min/1.73 sqM); Potassium 3.9 mmol/L (3.5-5.1); Sodium 127 mmol/L (137-145)
--- NOTE | 2023-10-31 12:51 | P.PN ---
Subjective Progress Note Date: 10/31/23 Principal diagnosis: Reason for follow-up is bilateral lower extremity infected wounds Patient is a 63-year-old male with a past medical history significant for hypertension hyperlipidemia coronary artery disease, PAD multiple vascular procedures including left femoral-tibial bypass and now has been dealing with the wound to the left lower extremity as well as wound to the right leg being managed in the outpatient setting by vascular surgery Center the hospital by the home care nurse concerning for worsening infection. Patient last wound culture positive for VRE and Pseudomonas. On today's evaluation that is 10/31/2023, the patient continues to be afebrile, the patient is on room air and breathing comfortably, the Pt denies having any chest pain or cough, the patient denies having any abdominal pain no vomiting or any diarrhea still complaining of significant pain to bilateral lower extremity wound area. Patient white count is down to 15.1, creatinine 0.61 Objective - Vital Signs Vital signs: Vital Signs Temp 98.6 F 10/31/23 07:25 Pulse 88 10/31/23 07:25 Resp 17 10/31/23 07:25 BP 104/62 10/31/23 07:25 Pulse Ox 96 10/31/23 07:25 FiO2 Intake & Output 10/30/23 10/31/23 10/31/23 18:59 06:59 18:59 Intake Total 300 Output Total 300 Balance 300 -300 Weight 86.183 kg Intake: Oral 300 Output: Urine 300 Other: # Voids 3 1 # Bowel Movements 2 - Exam GENERAL DESCRIPTION: Middle-age male lying in bed in no distress RESPIRATORY SYSTEM: Unlabored breathing , decreased breath sounds at bases HEART: S1 S2 regular rate and rhythm , ABDOMEN: Soft , no tenderness EXTREMITIES: Extensive wound to the left lower extremity with some slough tissue also wound to the right with slough tissue and surrounding redness - Labs CBC & Chem 7: 10/31/23 06:10 10/31/23 06:10 Labs: Abnormal Lab Results - Last 24 Hours (Table) 10/31/23 10/31/23 Range/Units 06:10 06:10 WBC 15.1 H (3.8-10.6) k/uL RBC 3.17 L (4.30-5.90) m/uL Hgb 8.2 L (13.0-17.5) gm/dL Hct 26.9 L (39.0-53.0) % MCHC 30.5 L (31.0-37.0) g/dL RDW 23.2 H (11.5-15.5) % Plt Count 471 H (150-450) k/uL Neutrophils # 13.7 H (1.3-7.7) k/uL Lymphocytes # 0.6 L (1.0-4.8) k/uL Sodium 127 L (137-145) mmol/L Carbon Dioxide 20 L (22-30) mmol/L Creatinine 0.61 L (0.66-1.25) mg/dL Calcium 8.1 L (8.4-10.2) mg/dL Magnesium 1.2 L (1.6-2.3) mg/dL Microbiology - Last 24 Hours (Table) 10/29/23 20:33 Gram Stain - Preliminary Leg - Left Wound Culture - Preliminary Pseudomonas aeruginosa Enterococcus faecalis 10/29/23 17:45 Blood Culture - Preliminary Blood 10/29/23 18:00 Blood Culture - Preliminary Blood Assessment and Plan (1) Bilateral lower leg cellulitis Current Visit: Yes Status: Acute Code(s): L03.116 - CELLULITIS OF LEFT LOWER LIMB; L03.115 - CELLULITIS OF RIGHT LOWER LIMB SNOMED Code(s): 480636045 (2) Open wound of both lower extremities Current Visit: Yes Status: Acute Code(s): S81.801A - UNSPECIFIED OPEN WOUND, RIGHT LOWER LEG, INITIAL ENCOUNTER; S81.802A - UNSPECIFIED OPEN WOUND, LEFT LOWER LEG, INITIAL ENCOUNTER SNOMED Code(s): 43454024 (3) Sepsis Current Visit: Yes Status: Acute Code(s): A41.9 - SEPSIS, UNSPECIFIED ORGANISM SNOMED Code(s): 99825788 Plan: 1patient presented to hospital with sepsis in this patient who did have a fever tachycardia elevated white count source is likely bilateral lower extremity wound and cellulitis with more extensive wound to the left lower extremity in this patient who did have a history of PAD and has multiple vascular procedure last wound culture done from the right leg has been Pseudomonas and VRE that was done on 10/03/2023. 2patient benefit from vascular surgery evaluation debridement and deep culture, awaiting recommendation from vascular surgery 3patient is currently being treated Zyvox and meropenem while waiting for repeat culture to be finalized. Dictation was produced using [employer] dictation software. please excuse any grammatical, word or spelling errors. Time with Patient: Less than 30
[2023-10-31] MEDS: ONDANSETRON 4 MG/2 ML VIAL IVP PRN (13:11)
--- NOTE | 2023-10-31 13:14 | P.GSCN ---
History of Present Illness Consult date: 10/31/23 Reason for Consult: Bilateral lower extremity wounds History of present illness: 63-year-old gentleman with past medical history of peripheral arterial disease, critical limb ischemia of the left lower extremity with previous femoral-tibial bypass and development of dehiscence and chronic wound in the left lower extremity secondary to increased swelling. Patient has been treated with multiple debridements and skin substitute placements with the most recent one scheduled for last week which he did not show up to due to the fact that he was not feeling well. He presented to the hospital secondary to sickness and due to his home care nurse thinking that his wounds are infected. He states they have been draining more than they have been in the past. He does admit to feeling sick and having a fever at home. He denies any chest pain or shortness of breath. He states his legs are less swollen since he has been in the hospital Review of Systems All systems: negative (What is mentioned in the HPI or past medical history) Past Medical History Past Medical History: Coronary Artery Disease (CAD), Chest Pain / Angina, Hyperlipidemia, Hypertension, Myocardial Infarction ([place]), Skin Disorder, Vascular Disorder Additional Past Medical History / Comment(s): AAA. Hx gout. Left and rt lower leg wounds, rt grt toe wound.- visiting nurse comes to house qod for dressing change . edema to left lower leg Last Myocardial Infarction Date:: 2010 History of Any Multi-Drug Resistant Organisms: MRSA, VRE Year Discovered:: 10/03/23 MDRO Source:: RT LEG Past Surgical History: Heart Catheterization With Stent, Orthopedic Surgery Additional Past Surgical History / Comment(s): LT WRIST SX, UNSURE IF ANY METAL PLACED. Lt.ankle surgery, 11 screws. Stent x1. EXPLORATORY LAPAROTOMY, UNABLE TO REPAIR AAA, Stent to Abdominal Aortic Aneurysm 2022, Lt. fem-pop artery bypass w/ insitu greater saphenous vein graft 06/06/23, leg wound on left with debridement. Past Anesthesia/Blood Transfusion Reactions: Previous Problems w/ Anesthesia Additional Past Anesthesia/Blood Transfusion Reaction / Comm: "Takes a lot to put him out.". Pt. states he woke up once during surgery. Date of Last Stent Placement:: 2010 Past Psychological History: Anxiety Additional Psychological History / Comment(s): Anxiety w/ "hospital things". Smoking Status: Current every day smoker Past Alcohol Use History: Occasional Additional Past Alcohol Use History / Comment(s): Normally SMOKES couple cigarettes a day, started smoking age 24. DRINKING 2-3 LIQUOR DRINKS DAILY. Past Drug Use History: None Reported Additional Drug Use History / Comment(s): Uses marijuana daily, half a joint. Instructed to hold 24 hrs prior to procedure - Past Family History Father Family Medical History: Cancer Additional Family Medical History / Comment(s): AGE 72 [place] CA W/ METS Mother Family Medical History: Hypertension Medications and Allergies Home Medications Medication Instructions Recorded Confirmed Type Atorvastatin [Lipitor] 40 mg PO HS 07/27/23 10/29/23 History Furosemide [Lasix] 40 mg PO DAILY 07/27/23 10/29/23 History Metoprolol Succinate [Metoprolol 25 mg PO DAILY 07/27/23 10/29/23 History Succinate ER] Escitalopram [Lexapro] 10 mg PO DAILY #30 tab 08/28/23 10/29/23 Rx Potassium Chloride [Klor-Con 10 ER] 10 meq PO DAILY 09/29/23 10/29/23 History Allergies Allergy/AdvReac Type Severity Reaction Status Date / Time No Known Allergies Allergy Verified 10/29/23 19:28 Surgical - Exam Vital Signs Temp Pulse Resp BP Pulse Ox 97.8 F 81 18 146/91 96 10/29/23 16:54 10/29/23 16:54 10/29/23 16:54 10/29/23 16:54 10/29/23 16:54 Patient Seen Date: 10/31/23 Patient Seen Time: 08:05 - General well developed, no distress, moderate pain - Eyes PERRL - Neck no masses - Respiratory normal respiratory effort - Cardiovascular Rhythm: regular - Abdomen Abdomen: soft - Psychiatric oriented to time, oriented to person, oriented to place, speech is normal Large wound noted in the medial aspect of the lower left leg with multiple areas of bruising and wounds on the right lower extremity with ischemic changes to the skin. Purulent drainage noted from both lower extremities. Multiphasic signal noted at the bypass as well as the DP and PT of the left. Good capillary refill noted. Right lower extremity with monophasic DP and PT signal 2+ pitting edema bilaterally Results - Labs 10/31/23 06:10 10/31/23 06:10 Abnormal Lab Results - Last 24 Hours (Table) 10/31/23 10/31/23 Range/Units 06:10 06:10 WBC 15.1 H (3.8-10.6) k/uL RBC 3.17 L (4.30-5.90) m/uL Hgb 8.2 L (13.0-17.5) gm/dL Hct 26.9 L (39.0-53.0) % MCHC 30.5 L (31.0-37.0) g/dL RDW 23.2 H (11.5-15.5) % Plt Count 471 H (150-450) k/uL Neutrophils # 13.7 H (1.3-7.7) k/uL Lymphocytes # 0.6 L (1.0-4.8) k/uL Sodium 127 L (137-145) mmol/L Carbon Dioxide 20 L (22-30) mmol/L Creatinine 0.61 L (0.66-1.25) mg/dL Calcium 8.1 L (8.4-10.2) mg/dL Magnesium 1.2 L (1.6-2.3) mg/dL Microbiology - Last 24 Hours (Table) 10/29/23 20:33 Gram Stain - Preliminary Leg - Left Wound Culture - Preliminary Pseudomonas aeruginosa Enterococcus faecalis 10/29/23 17:45 Blood Culture - Preliminary Blood 10/29/23 18:00 Blood Culture - Preliminary Blood Diabetes panel 10/31/23 Range/Units 06:10 Sodium 127 L (137-145) mmol/L Potassium 3.9 (3.5-5.1) mmol/L Chloride 106 (98-107) mmol/L Carbon Dioxide 20 L (22-30) mmol/L BUN 12 (9-20) mg/dL Creatinine 0.61 L (0.66-1.25) mg/dL Glucose 86 (74-99) mg/dL Calcium 8.1 L (8.4-10.2) mg/dL Calcium panel 10/31/23 Range/Units 06:10 Calcium 8.1 L (8.4-10.2) mg/dL Pituitary panel 10/31/23 Range/Units 06:10 Sodium 127 L (137-145) mmol/L Potassium 3.9 (3.5-5.1) mmol/L Chloride 106 (98-107) mmol/L Carbon Dioxide 20 L (22-30) mmol/L BUN 12 (9-20) mg/dL Creatinine 0.61 L (0.66-1.25) mg/dL Glucose 86 (74-99) mg/dL Calcium 8.1 L (8.4-10.2) mg/dL Adrenal panel 10/31/23 Range/Units 06:10 Sodium 127 L (137-145) mmol/L Potassium 3.9 (3.5-5.1) mmol/L Chloride 106 (98-107) mmol/L Carbon Dioxide 20 L (22-30) mmol/L BUN 12 (9-20) mg/dL Creatinine 0.61 L (0.66-1.25) mg/dL Glucose 86 (74-99) mg/dL Calcium 8.1 L (8.4-10.2) mg/dL Assessment and Plan Assessment: Bilateral lower extremity chronic wounds with surrounding cellulitis Bilateral lower extremity infected wounds Sepsis secondary to infected bilateral lower extremity wounds Lactic acidosis Noncompliance Nicotine dependence Plan: Continue local wound care, IV antibiotics. Will likely require formal debridement once again of the lower extremities. Continue elevation which is improving his appearance of the lower extremity wounds. Thank you for the consultation. Further recommendations to follow.
[2023-10-31] MEDS: DEXTROSE 5%-0.9% NACL 1,000 ML IV SCH (15:59)
[2023-10-31] MEDS: MAGNESIUM SULFATE-D5W PMX 1 GM in DEXTROSE/WATER 1 100ML.BAG IVPB SCH (15:59)
--- NOTE | 2023-10-31 16:00 | P.PN ---
Subjective Progress Note Date: 10/31/23 H&P Date: 10/30/23 Chief Complaint: Worsening bilateral lower legs, increased pain, edema and "split open" This is 63-year-old gentleman with past medical history significant for PAD, multiple vascular procedures including femoral-tibial bypass followed by wound development, dehiscence of his left lower extremity, status post recent excisional debridement of the left lower leg wound with skin substitute placement, excisional debridement of the left great toe wound and excisional debridement of right lower leg wound x 2 on 10/03/[address] Inman, vascular surgery, presented to the ER with worsening bilateral lower extremity pain, edema, reports right lower extremity "split open" over the last week with serous drainage. His visiting nurse evaluated patient on Monday recommending ER. Denies any chest pain, palpitations or shortness of breath. Denies nausea vomiting or diarrhea. Denies abdominal pain. Denies fever or chills. Denies lightheadedness, dizziness or focal deficits. Wound and blood cultures obtained, initiated on vancomycin in the ER. Tmax 101, WBC 16.3, increased to 19.67, CRP 12.6 .hemoglobin 7.7, platelets 468. Sodium 129, potassium 3.3, bicarb 19, BUN 10, creatinine 0.7. Lactic acid 2.2, improved with IV fluid hy dration, 1.1. Magnesium 1-repeat level ordered stat. 10/31/2023 Tmax 101. WBC decreased to 15.1. reports decreased appetite. Sodium decreased to 127, renal function stable. Potassium 3.9, magnesium 1.2 - supplements ordered. Positive pain of bilateral lower extremities. Evaluated by infectious disease, antibiotics adjusted to Zyvox and meropenem. Denies chest pain, palpitations or shortness of breath. Objective - Vital Signs Vital signs: Vital Signs Temp 97.9 F 10/31/23 13:15 Pulse 101 H 10/31/23 13:15 Resp 20 10/31/23 13:15 BP 110/79 10/31/23 13:15 Pulse Ox 95 10/31/23 13:15 FiO2 Intake & Output 10/30/23 10/31/23 10/31/23 18:59 06:59 18:59 Intake Total 300 Output Total 300 Balance 300 -300 Weight 86.183 kg Intake: Oral 300 Output: Urine 300 Other: # Voids 3 1 # Bowel Movements 2 - Exam PHYSICAL EXAM: VITAL SIGNS: [As above] GENERAL: Alert and oriented x 3, sitting up in bed, no acute distress HEENT: Normocephalic, atraumatic ,conjunctivae normal. eyes normal. NECK: Supple, no JVD. CARDIOVASCULAR: S1, S2 regular. No murmur RESPIRATION: Unlabored, equal air entry breath sounds diminished in the bases. ABDOMEN: Soft, nondistended, nontender . No guarding. no masses palpable. No ascites, No hepatosplenomegaly.Bowel sounds heard. LEGS: Bilateral lower extremities 2+ edema, dressings with purulent drainage NERVOUS SYSTEM: Cranial N 2-12 grossly normal. Moves all 4 limbs. No focal deficits. Strength and sensation grossly intact. Skin: Warm and dry, no rash - Labs CBC & Chem 7: 10/31/23 06:10 10/31/23 06:10 Labs: Abnormal Lab Results - Last 24 Hours (Table) 10/31/23 10/31/23 Range/Units 06:10 06:10 WBC 15.1 H (3.8-10.6) k/uL RBC 3.17 L (4.30-5.90) m/uL Hgb 8.2 L (13.0-17.5) gm/dL Hct 26.9 L (39.0-53.0) % MCHC 30.5 L (31.0-37.0) g/dL RDW 23.2 H (11.5-15.5) % Plt Count 471 H (150-450) k/uL Neutrophils # 13.7 H (1.3-7.7) k/uL Lymphocytes # 0.6 L (1.0-4.8) k/uL Sodium 127 L (137-145) mmol/L Carbon Dioxide 20 L (22-30) mmol/L Creatinine 0.61 L (0.66-1.25) mg/dL Calcium 8.1 L (8.4-10.2) mg/dL Magnesium 1.2 L (1.6-2.3) mg/dL Microbiology - Last 24 Hours (Table) 10/29/23 20:33 Gram Stain - Preliminary Leg - Left Wound Culture - Preliminary Pseudomonas aeruginosa Enterococcus faecalis 10/29/23 17:45 Blood Culture - Preliminary Blood 10/29/23 18:00 Blood Culture - Preliminary Blood Assessment and Plan Assessment: Sepsis secondary to infected bilateral lower extremity wounds, cellulitis, recent excisional debridement of left lower leg wound with skin substitute placement, excisional debridement of the left great toe wound and excisional debridement of the right lower leg wound x 2 on 10/03/[address] Inman , vascular surgery. History of Pseudomonas and VRE on last wound culture of left leg 10/03/2023, Lactic acidosis secondary to the above History of Left lower extremity skin dehiscence and wound infection,MSSA, status post excisional debridement and wound VAC. Left great toe ischemia status post excisional debridement History of left femoral tibial bypass secondary to critical limb ischemia History of aortic aneurysm with endovascular repair; Chronic Paroximal atrial fibrillation CAD, history of stent placement Essential hypertension Hyperlipidemia Nicotine dependence Daily alcohol use Noncompliance with medication regimen, patient is high risk for readmission. Iron deficient anemia Hypokalemia Hypomagnesemia Hyponatremia Plan: Continue current medication regimen, monitoring and symptomatic treatment. Mild hyponatremia, IV fluids adjusted to D5.9, hold Lasix. magnesium sup plementation ordered with repeat level in a.m. wound cultures in progress. antibiotics as per infectious disease, Zyvox and meropenem. Evaluated by vascular surgery this morning, potential repeat debridement-local wound care ,recommendations pending. Pain management. The impression and plan of care has been dictated as directed. : I performed a history and examination of this patient, discussed the same with the dictator. I agree with the dictator's note ,documented as a scribe. Any additional findings or plans will be noted.
[2023-10-31] MEDS ORDERED: VANCOMYCIN TROUGH DUE 1 EACH MISC MISCELLANE ONE (19:00)
--- NOTE | 2023-11-01 09:24 | P.CONS ---
History of Present Illness - Reason for Consult Consult date: 11/01/23 wound care - History of Present Illness This is a 63-year-old gentleman who has been at the wound care center at [facility]. Who has multiple ulcerations to bilateral lower extremities. Patient states that the ulcerations have been there for multiple years. He has utilized honey Santyl and absorptive silver. Patient has a right heel pressure ulcer stage II measuring approximately 2 x 1.4 x 0.2 with granulation slough and nonviable tissue present. The wound edges are attached to the wound base no tunneling or undermining noted. Left great toe ulceration is a nonpressure ulcer with fat layer exposure measuring 2 x 2 x 0.2 cm with slough and nonviable tissue present granulation seen within the wound bed. Right [place] is a nonpressure ulceration with fat layer exposure measuring 4 x 3 x 0.2 cm with slo ugh and nonviable tissue present granulation seen within the wound bed. No tunneling or undermining noted. Left [place] is a nonpressure ulcer with muscle involvement without necrosis measuring 8 x 5 x 0.3 cm with eschar nonviable tissue and slough noted. Granulation seen within the wound bed. No tunneling or undermining noted. Patient's past medical history significant for coronary artery disease, hyperlipidemia, hypertension, MA, AAA, nonhealing ulcerations to bilateral lower extremities denies diabetes. Review Of Systems: Constitutional: No fever, no chills, no night sweats. No weight change. No weakness, fatigue or lethargy. No daytime sleepiness. Integumentary:reports wounds, no lesions. No rash or pruritus. No unusual bruising. No change in hair or nails. Physical exam: General Appearance: Alert, cooperative, no distress, appears stated age. Skin: See HPI all other Skin color, texture, tugor normal, no rashes or lesions. Neurologic: Alert oriented x3 Assessment: 1. Nonhealing ulceration left lower extremity with muscle involvement without necrosis 2. Nonhealing ulceration right lower extremity with fat layer exposure 3. Stage II pressure ulcer right heel 4. Nonhealing ulceration of the Left foot with fat layer exposure Plan: 1.Apply santyl, saline moist gauze, dry gauze, rolled gauze and secure with tape. wrap with leigh wrap for compression. 2. Patient would benefit from advanced wound care and wound care setting. We have happy to see him upon discharge. Thank you for the consultation any questions please contact the wound care center DNP note has been reviewed and discussed with Dr. Osuna and the impression and plan of care has been directed as dictated. Past Medical History Past Medical History: Coronary Artery Disease (CAD), Chest Pain / Angina, Hyperlipidemia, Hypertension, Myocardial Infarction (MA), Skin Disorder, Vascular Disorder Additional Past Medical History / Comment(s): AAA. Hx gout. Left and rt lower leg wounds, rt grt toe wound.- visiting nurse comes to house qod for dressing change . edema to left lower leg Last Myocardial Infarction Date:: 2010 History of Any Multi-Drug Resistant Organisms: MRSA, VRE Year Discovered:: 10/03/23 MDRO Source:: RT LEG Past Surgical History: Heart Catheterization With Stent, Orthopedic Surgery Additional Past Surgical History / Comment(s): LT WRIST SX, UNSURE IF ANY METAL PLACED. Lt.ankle surgery, 11 screws. Stent x1. EXPLORATORY LAPAROTOMY, UNABLE TO REPAIR AAA, Stent to Abdominal Aortic Aneurysm 2022, Lt. fem-pop artery bypass w/ insitu greater saphenous vein graft 06/06/23, leg wound on left with debridement. Past Anesthesia/Blood Transfusion Reactions: Previous Problems w/ Anesthesia Additional Past Anesthesia/Blood Transfusion Reaction / Comm: "Takes a lot to put him out.". Pt. states he woke up once during surgery. Date of Last Stent Placement:: 2010 Past Psychological History: Anxiety Additional Psychological History / Comment(s): Anxiety w/ "hospital things". Smoking Status: Current every day smoker Past Alcohol Use History: Occasional Additional Past Alcohol Use History / Comment(s): Normally SMOKES couple cigarettes a day, started smoking age 24. DRINKING 2-3 LIQUOR DRINKS DAILY. Past Drug Use History: None Reported Additional Drug Use History / Comment(s): Uses marijuana daily, half a joint. Instructed to hold 24 hrs prior to procedure - Past Family History Father Family Medical History: Cancer Additional Family Medical History / Comment(s): AGE 72 [place] CA W/ METS Mother Family Medical History: Hypertension Medications and Allergies Home Medications Medication Instructions Recorded Confirmed Type Atorvastatin [Lipitor] 40 mg PO HS 07/27/23 10/29/23 History Furosemide [Lasix] 40 mg PO DAILY 07/27/23 10/29/23 History Metoprolol Succinate [Metoprolol 25 mg PO DAILY 07/27/23 10/29/23 History Succinate ER] Escitalopram [Lexapro] 10 mg PO DAILY #30 tab 08/28/23 10/29/23 Rx Potassium Chloride [Klor-Con 10 ER] 10 meq PO DAILY 09/29/23 10/29/23 History Allergies Allergy/AdvReac Type Severity Reaction Status Date / Time No Known Allergies Allergy Verified 10/29/23 19:28 Physical Exam Vitals: Vital Signs Temp Pulse Resp BP Pulse Ox 11/01/23 07:30 98.0 F 118 H 18 102/63 96 11/01/23 01:46 98.2 F 81 96/53 90 L 10/31/23 20:00 17 10/31/23 19:57 98 F 99 99/66 97 10/31/23 13:15 97.9 F 101 H 20 110/79 95 Intake and Output 10/31/23 11/01/23 11/01/23 22:59 06:59 14:59 Other: Voiding Method Toilet Urinal # Voids 3 Results CBC & Chem 7: 10/31/23 06:10 10/31/23 06:10 Labs: Microbiology - Last 24 Hours (Table) 10/29/23 20:33 Gram Stain - Preliminary Leg - Left Wound Culture - Preliminary Pseudomonas aeruginosa Enterococcus faecalis Presumptive MRSA 10/29/23 17:45 Blood Culture - Preliminary Blood 10/29/23 18:00 Blood Culture - Preliminary Blood Assessment and Plan (1) Non-pressure chronic ulcer of other part of left lower leg with muscle involvement without evidence of necrosis Current Visit: Yes Status: Acute Code(s): L97.825 - NON-PRS CHR ULC OTH PRT L LOW LEG W MSL INVL W/O EVD OF NECR SNOMED Code(s): 93676929442280569 (2) Non-pressure chronic ulcer of other part of right lower leg with fat layer exposed Current Visit: Yes Status: Acute Code(s): L97.812 - NON-PRS CHRONIC ULCER OTH PRT R LOW LEG W FAT LAYER EXPOSED SNOMED Code(s): 37944222893577670 (3) Non-pressure chronic ulcer of other part of left foot with fat layer exposed Current Visit: Yes Status: Acute Code(s): L97.522 - NON-PRS CHRONIC ULCER OTH PRT LEFT FOOT W FAT LAYER EXPOSED SNOMED Code(s): 77506855674508879 (4) Pressure ulcer of right heel, stage 2 Current Visit: Yes Status: Acute Code(s): L89.612 - PRESSURE ULCER OF RIGHT HEEL, STAGE 2 SNOMED Code(s): 17104476558607 (5) Atherosclerosis of [place] arteries of left leg with ulceration of other part of foot Current Visit: No Status: Acute Code(s): I70.245 - ATHSCL [place] ARTERIES OF LEFT LEG W ULCERATION OTH PRT FOOT SNOMED Code(s): 5587900145
[2023-11-01 09:36] LABS: HCT 29.4 % (39.6-50.0); HGB 8.9 g/dL (13.0-17.0); MCH 25.9 pg (27.0-32.0); MCHC 30.3 g/dL (32.0-37.0); MCV 85.5 FL (80.0-97.0); Mean Platelet Volume 9.5 FL (9.5-12.2); NRBC Per 100 WBC 0 X 10*3/uL (0.00-0.01); Platelet Count 441 X 10*3/uL (140-440); RBC 3.44 X 10*6/uL (4.40-5.60); RDW 25.5 % (11.5-14.5); WBC 20.06 X 10*3/uL (4.50-10.00)
[2023-11-01 10:04] LABS: Anisocytosis (M) 3+; Basophils # (A) 0.09 X 10*3/uL (0.00-0.10); Basophils % (A) 0.4 %; Eosinophils # (A) 0.01 X 10*3/uL (0.04-0.35); Eosinophils % (A) 0 %; Lymphocytes % (A) 3.5 %; Monocytes # (A) 1.11 X 10*3/uL (0.20-1.00); Monocytes % (A) 5.5 %; Neutrophils # (A) 17.63 X 10*3/uL (1.80-7.70)
[2023-11-01 10:14] LABS: BUN/Creat Ratio 21.25 Ratio (12.00-20.00); Carbon Dioxide 18.5 mmol/L (21.6-31.8); Chloride 99 mmol/L (96-109); Glucose 135 mg/dL (70-110); Potassium 3.6 mmol/L (3.5-5.5); Sodium 130 mmol/L (135-145)
--- NOTE | 2023-11-01 10:38 | P.PN ---
Subjective Progress Note Date: 11/01/23 Principal diagnosis: bilateral lower extremity wounds Patient seen and examined. Complaining that he is hot and feverish. He states he has some drainage from his lower extremity wounds and swelling is improved. Objective - Vital Signs Vital signs: Vital Signs Temp 98.0 F 11/01/23 07:30 Pulse 118 H 11/01/23 07:30 Resp 18 11/01/23 07:30 BP 102/63 11/01/23 07:30 Pulse Ox 96 11/01/23 07:30 FiO2 Intake & Output 10/31/23 11/01/23 11/01/23 18:59 06:59 18:59 Output Total 300 Balance -300 Output: Urine 300 Other: Voiding Method Toilet Urinal # Voids 3 - Exam Large wound noted in the medial aspect of the lower left leg with multiple areas of bruising and wounds on the right lower extremity with ischemic changes to the skin. Purulent drainage noted from both lower extremities. Multiphasic signal noted at the bypass as well as the DP and PT of the left. Good capillary refill noted. Right lower extremity with monophasic DP and PT signal 2+ pitting edema bilaterally - Labs CBC & Chem 7: 11/01/23 05:37 11/01/23 05:37 Labs: Abnormal Lab Results - Last 24 Hours (Table) 11/01/23 11/01/23 Range/Units 05:37 05:37 WBC 20.06 H (4.50-10.00) X 10*3/uL RBC 3.44 L (4.40-5.60) X 10*6/uL Hgb 8.9 L (13.0-17.0) g/dL Hct 29.4 L (39.6-50.0) % MCH 25.9 L (27.0-32.0) pg MCHC 30.3 L (32.0-37.0) g/dL RDW 25.5 H (11.5-14.5) % Plt Count 441 H (140-440) X 10*3/uL Immature Gran # 0.52 H (0.00-0.04) X 10*3/uL Neutrophils # 17.63 H (1.80-7.70) X 10*3/uL Lymphocytes # 0.70 L (0.90-5.00) X 10*3/uL Monocytes # 1.11 H (0.20-1.00) X 10*3/uL Eosinophils # 0.01 L (0.04-0.35) X 10*3/uL Anisocytosis (manual) 3+ A Sodium 130 L (135-145) mmol/L Carbon Dioxide 18.5 L (21.6-31.8) mmol/L Anion Gap 12.50 H (4.00-12.00) mmol/L BUN/Creatinine Ratio 21.25 H (12.00-20.00) Ratio Glucose 135 H (70-110) mg/dL Calcium 8.0 L (8.7-10.3) mg/dL Microbiology - Last 24 Hours (Table) 10/29/23 20:33 Gram Stain - Preliminary Leg - Left Wound Culture - Preliminary Pseudomonas aeruginosa Enterococcus faecalis Presumptive MRSA 10/29/23 17:45 Blood Culture - Preliminary Blood 10/29/23 18:00 Blood Culture - Preliminary Blood Assessment and Plan Assessment: Bilateral lower extremity chronic wounds with surrounding cellulitis Bilateral lower extremity infected wounds Sepsis secondary to infected bilateral lower extremity wounds Lactic acidosis Noncompliance Nicotine dependence Plan: Continue local wound care, IV antibiotics. Schedule formal debridement Monday. Agree with wound care evaluation and treatment plan. Continue elevation which is improving his appearance of the lower extremity wounds.
[2023-11-01] MEDS: COLLAGENASE 250 UNIT/GM OINTMENT 30 GM TUBE TOPICAL SCH (10:54)
--- NOTE | 2023-11-01 12:27 | P.PN ---
Subjective Progress Note Date: 11/01/23 Principal diagnosis: Reason for follow-up is bilateral lower extremity infected wounds Patient is a 63-year-old male with a past medical history significant for hypertension hyperlipidemia coronary artery disease, PAD multiple vascular procedures including left femoral-tibial bypass and now has been dealing with the wound to the left lower extremity as well as wound to the right leg being managed in the outpatient setting by vascular surgery Center the hospital by the home care nurse concerning for worsening infection. Patient last wound culture positive for VRE and Pseudomonas. On today's evaluation that is 11/01/2023, Patient is afebrile patient is currently on room air and denies having any shortness of breath, the patient denies any chest pain or cough, the patient has been complaining of nausea decreased oral intake no abdominal pain or diarrhea still complaining of pain to bilateral extremity wound. The patient white count is up to 20.06, creatinine 0.8 cultures growing Pseudomonas and Enterococcus faecalis which is not VRE and MRSA Objective - Vital Signs Vital signs: Vital Signs Temp 98.0 F 11/01/23 07:30 Pulse 118 H 11/01/23 07:30 Resp 18 11/01/23 07:30 BP 102/63 11/01/23 07:30 Pulse Ox 96 11/01/23 07:30 FiO2 Intake & Output 10/31/23 11/01/23 11/01/23 18:59 06:59 18:59 Output Total 300 Balance -300 Output: Urine 300 Other: Voiding Method Toilet Urinal # Voids 3 - Exam GENERAL DESCRIPTION: Middle-age male lying in bed in no distress RESPIRATORY SYSTEM: Unlabored breathing , decreased breath sounds at bases HEART: S1 S2 regular rate and rhythm , ABDOMEN: Soft , no tenderness EXTREMITIES: Left leg wound edges been dressed by the nursing staff right lower extremity wound did have slough tissue some skin necrosis and foul-smelling - Labs CBC & Chem 7: 11/01/23 05:37 11/01/23 05:37 Labs: Abnormal Lab Results - Last 24 Hours (Table) 11/01/23 11/01/23 Range/Units 05:37 05:37 WBC 20.06 H (4.50-10.00) X 10*3/uL RBC 3.44 L (4.40-5.60) X 10*6/uL Hgb 8.9 L (13.0-17.0) g/dL Hct 29.4 L (39.6-50.0) % MCH 25.9 L (27.0-32.0) pg MCHC 30.3 L (32.0-37.0) g/dL RDW 25.5 H (11.5-14.5) % Plt Count 441 H (140-440) X 10*3/uL Immature Gran # 0.52 H (0.00-0.04) X 10*3/uL Neutrophils # 17.63 H (1.80-7.70) X 10*3/uL Lymphocytes # 0.70 L (0.90-5.00) X 10*3/uL Monocytes # 1.11 H (0.20-1.00) X 10*3/uL Eosinophils # 0.01 L (0.04-0.35) X 10*3/uL Anisocytosis (manual) 3+ A Sodium 130 L (135-145) mmol/L Carbon Dioxide 18.5 L (21.6-31.8) mmol/L Anion Gap 12.50 H (4.00-12.00) mmol/L BUN/Creatinine Ratio 21.25 H (12.00-20.00) Ratio Glucose 135 H (70-110) mg/dL Calcium 8.0 L (8.7-10.3) mg/dL Microbiology - Last 24 Hours (Table) 10/29/23 20:33 Gram Stain - Preliminary Leg - Left Wound Culture - Preliminary Pseudomonas aeruginosa Enterococcus faecalis Presumptive MRSA 10/29/23 17:45 Blood Culture - Preliminary Blood 10/29/23 18:00 Blood Culture - Preliminary Blood Assessment and Plan (1) Bilateral lower leg cellulitis Current Visit: Yes Status: Acute Code(s): L03.116 - CELLULITIS OF LEFT LOWER LIMB; L03.115 - CELLULITIS OF RIGHT LOWER LIMB SNOMED Code(s): 786913696 (2) Open wound of both lower extremities Current Visit: Yes Status: Acute Code(s): S81.801A - UNSPECIFIED OPEN WOUND, RIGHT LOWER LEG, INITIAL ENCOUNTER; S81.802A - UNSPECIFIED OPEN WOUND, LEFT LOWER LEG, INITIAL ENCOUNTER SNOMED Code(s): 70457893 (3) Sepsis Current Visit: Yes Status: Acute Code(s): A41.9 - SEPSIS, UNSPECIFIED ORGANISM SNOMED Code(s): 67793869 Plan: 1patient presented to hospital with sepsis in this patient who did have a fever tachycardia elevated white count source is likely bilateral lower extremity wound and cellulitis with more extensive wound to the left lower extremity in this patient who did have a history of PAD and has multiple vascular procedure last wound culture done from the right leg has been Pseudomonas and VRE that was done on 10/03/2023, culture done this admission are growing Pseudomonas aeruginosa Enterococcus faecalis that is not VRE and MRSA 2patient currently waiting for debridement and deep culture, as reported by the nursing staff 3we will discontinue Zyvox and meropenem and start the patient on Zosyn and daptomycin and monitor clinical course closely Dictation was produced using [employer] dictation software. please excuse any grammatical, word or spelling errors. Time with Patient: Greater than 30
[2023-11-01] MEDS: DAPTOmycin 500 MG in SODIUM CHLORIDE 0.9% 50 ML IVPB SCH (13:51)
[2023-11-01] MEDS: PIPERACILLIN-TAZOBACTAM 3.375 GM in SODIUM CHLORIDE 0.9% 100 ML IVPB SCH (15:44)
--- NOTE | 2023-11-01 16:23 | P.PN ---
Subjective Progress Note Date: 11/01/23 H&P Date: 10/30/23 Chief Complaint: Worsening bilateral lower legs, increased pain, edema and "split open" This is 63-year-old gentleman with past medical history significant for PAD, multiple vascular procedures including femoral-tibial bypass followed by wound development, dehiscence of his left lower extremity, status post recent excisional debridement of the left lower leg wound with skin substitute placement, excisional debridement of the left great toe wound and excisional debridement of right lower leg wound x 2 on 10/03/[address] Inman, vascular surgery, presented to the ER with worsening bilateral lower extremity pain, edema, reports right lower extremity "split open" over the last week with serous drainage. His visiting nurse evaluated patient on Monday recommending ER. Denies any chest pain, palpitations or shortness of breath. Denies nausea vomiting or diarrhea. Denies abdominal pain. Denies fever or chills. Denies lightheadedness, dizziness or focal deficits. Wound and blood cultures obtained, initiated on vancomycin in the ER. Tmax 101, WBC 16.3, increased to 19.67, CRP 12.6 .hemoglobin 7.7, platelets 468. Sodium 129, potassium 3.3, bicarb 19, BUN 10, creatinine 0.7. Lactic acid 2.2, improved with IV fluid hy dration, 1.1. Magnesium 1-repeat level ordered stat. 10/31/2023 Tmax 101. WBC decreased to 15.1. reports decreased appetite. Sodium decreased to 127, renal function stable. Potassium 3.9, magnesium 1.2 - supplements ordered. Positive pain of bilateral lower extremities. Evaluated by infectious disease, antibiotics adjusted to Zyvox and meropenem. Denies chest pain, palpitations or shortness of breath. 11/01/2023 wound cultures growing Pseudomonas and Enterococcus faecalis, vancomycin and penicillin sensitive, afebrile, WBC up to 20.06, antibiotics further adjusted to Zosyn and daptomycin. Renal function stable. IV fluids adjusted yesterday to D5.9 with sodium improved up to 130. Objective - Vital Signs Vital signs: Vital Signs Temp 98.0 F 11/01/23 07:30 Pulse 118 H 11/01/23 07:30 Resp 18 11/01/23 07:30 BP 102/63 11/01/23 07:30 Pulse Ox 96 11/01/23 07:30 FiO2 Intake & Output 10/31/23 11/01/23 11/01/23 18:59 06:59 18:59 Output Total 300 Balance -300 Output: Urine 300 Other: Voiding Method Toilet Urinal # Voids 3 - Exam PHYSICAL EXAM: VITAL SIGNS: [As above] GENERAL: Alert and oriented x 3, sitting up in bed, no acute distress HEENT: Normocephalic, atraumatic ,conjunctivae normal. eyes normal. NECK: Supple, no JVD. CARDIOVASCULAR: S1, S2 regular. No murmur RESPIRATION: Unlabored, equal air entry breath sounds diminished in the bases. ABDOMEN: Soft, nondistended, nontender . No guarding. no masses palpable. No ascites, No hepatosplenomegaly.Bowel sounds heard. LEGS: Bilateral lower extremities' dressings clean dry and intact NERVOUS SYSTEM: Cranial N 2-12 grossly normal. Moves all 4 limbs. Skin: Warm and dry, no rash - Labs CBC & Chem 7: 11/01/23 05:37 11/01/23 05:37 Labs: Abnormal Lab Results - Last 24 Hours (Table) 11/01/23 11/01/23 Range/Units 05:37 05:37 WBC 20.06 H (4.50-10.00) X 10*3/uL RBC 3.44 L (4.40-5.60) X 10*6/uL Hgb 8.9 L (13.0-17.0) g/dL Hct 29.4 L (39.6-50.0) % MCH 25.9 L (27.0-32.0) pg MCHC 30.3 L (32.0-37.0) g/dL RDW 25.5 H (11.5-14.5) % Plt Count 441 H (140-440) X 10*3/uL Immature Gran # 0.52 H (0.00-0.04) X 10*3/uL Neutrophils # 17.63 H (1.80-7.70) X 10*3/uL Lymphocytes # 0.70 L (0.90-5.00) X 10*3/uL Monocytes # 1.11 H (0.20-1.00) X 10*3/uL Eosinophils # 0.01 L (0.04-0.35) X 10*3/uL Anisocytosis (manual) 3+ A Sodium 130 L (135-145) mmol/L Carbon Dioxide 18.5 L (21.6-31.8) mmol/L Anion Gap 12.50 H (4.00-12.00) mmol/L BUN/Creatinine Ratio 21.25 H (12.00-20.00) Ratio Glucose 135 H (70-110) mg/dL Calcium 8.0 L (8.7-10.3) mg/dL Microbiology - Last 24 Hours (Table) 10/29/23 20:33 Anaerobic Culture - Preliminary Leg - Left 10/29/23 20:33 Gram Stain - Preliminary Leg - Left Wound Culture - Preliminary Pseudomonas aeruginosa Enterococcus faecalis Presumptive MRSA 10/29/23 17:45 Blood Culture - Preliminary Blood 10/29/23 18:00 Blood Culture - Preliminary Blood Assessment and Plan Assessment: Sepsis secondary to infected bilateral lower extremity wounds, cellulitis, recent excisional debridement of left lower leg wound with skin substitute placement, excisional debridement of the left great toe wound and excisional debridement of the right lower leg wound x 2 on 10/03/[address] Inman , vascular surgery. Cultures currently growing Pseudomonas aeruginosa and Enterococcus faecalis, not VRE and MRSA History of Pseudomonas and VRE on last wound culture of left leg 10/03/2023, Lactic acidosis secondary to the above History of Left lower extremity skin dehiscence and wound infection,MSSA, status post excisional debridement and wound VAC. Left great toe ischemia status post excisional debridement History of left femoral tibial bypass secondary to critical limb ischemia History of aortic aneurysm with endovascular repair; Chronic Paroximal atrial fibrillation CAD, history of stent placement Essential hypertension Hyperlipidemia Nicotine dependence Daily alcohol use Noncompliance with medication regimen, patient is high risk for readmission. Iron deficient anemia Hypokalemia Hypomagnesemia Hyponatremia Plan: Continue current medication regimen, monitoring and symptomatic treatment. Maintain IV fluids of D5/0.9 normal saline, continue holding Lasix ,close monitoring of electrolytes and renal function. Patient is scheduled for debridement on Monday with vascular surgery. Antibiotics as per infectious disease. Pain management, local wound care. The impression and plan of care has been dictated as directed. : I performed a history and examination of this patient, discussed the same with the dictator. I agree with the dictator's note ,documented as a scribe. Any additional findings or plans will be noted.
[2023-11-02] MEDS ORDERED: MORPHINE SULFATE 4 MG/ML SYRINGE ONE (00:01)
[2023-11-02 09:42] LABS: Anisocytosis Moderate; Basophils % (A) 0 %; Eosinophils # (A) 0.1 k/uL (0-0.7); Eosinophils % (A) 0 %; HCT 31.2 % (39.0-53.0); HGB 9.1 gm/dL (13.0-17.5); Hypochromasia Marked; Lymphocytes # (A) 0.5 k/uL (1.0-4.8); Lymphocytes % (A) 3 %; MCH 25.4 pg (25.0-35.0); MCHC 29.1 g/dL (31.0-37.0); MCV 87.1 fL (80.0-100.0); Mean Platelet Volume 7.4; Microcytosis Slight; Monocytes # (A) 0.6 k/uL (0-1.0); Monocytes % (A) 3 %; Neutrophils % (A) 92 %; Platelet Count 523 k/uL (150-450); RBC 3.58 m/uL (4.30-5.90); RDW 23.2 % (11.5-15.5); WBC 17.3 k/uL (3.8-10.6)
[2023-11-02 10:56] LABS: African American GFR (CKD) >90 (>60 ml/min/1.73 sqM); Anion Gap 9 mmol/L; Blood Urea Nitrogen 26 mg/dL (9-20); Calcium 8.7 mg/dL (8.4-10.2); Carbon Dioxide 17 mmol/L (22-30); Chloride 105 mmol/L (98-107); Glucose 93 mg/dL (74-99); Magnesium 1.8 mg/dL (1.6-2.3); Non-African American GFR(CKD) 90 (>60 ml/min/1.73 sqM); Potassium 3.8 mmol/L (3.5-5.1); Sodium 131 mmol/L (137-145)
--- NOTE | 2023-11-02 14:11 | P.PN ---
Subjective Progress Note Date: 11/02/23 H&P Date: 10/30/23 Chief Complaint: Worsening bilateral lower legs, increased pain, edema and "split open" This is 63-year-old gentleman with past medical history significant for PAD, multiple vascular procedures including femoral-tibial bypass followed by wound development, dehiscence of his left lower extremity, status post recent excisional debridement of the left lower leg wound with skin substitute placement, excisional debridement of the left great toe wound and excisional debridement of right lower leg wound x 2 on 10/03/[address] Inman, vascular surgery, presented to the ER with worsening bilateral lower extremity pain, edema, reports right lower extremity "split open" over the last week with serous drainage. His visiting nurse evaluated patient on Monday recommending ER. Denies any chest pain, palpitations or shortness of breath. Denies nausea vomiting or diarrhea. Denies abdominal pain. Denies fever or chills. Denies lightheadedness, dizziness or focal deficits. Wound and blood cultures obtained, initiated on vancomycin in the ER. Tmax 101, WBC 16.3, increased to 19.67, CRP 12.6 .hemoglobin 7.7, platelets 468. Sodium 129, potassium 3.3, bicarb 19, BUN 10, creatinine 0.7. Lactic acid 2.2, improved with IV fluid hy dration, 1.1. Magnesium 1-repeat level ordered stat. 10/31/2023 Tmax 101. WBC decreased to 15.1. reports decreased appetite. Sodium decreased to 127, renal function stable. Potassium 3.9, magnesium 1.2 - supplements ordered. Positive pain of bilateral lower extremities. Evaluated by infectious disease, antibiotics adjusted to Zyvox and meropenem. Denies chest pain, palpitations or shortness of breath. 11/01/2023 wound cultures growing Pseudomonas and Enterococcus faecalis, vancomycin and penicillin sensitive, afebrile, WBC up to 20.06, antibiotics further adjusted to Zosyn and daptomycin. Renal function stable. IV fluids adjusted yesterday to D5.9 with sodium improved up to 130. 11/02/2023 maintained on IV antibiotics as per ID. Afebrile, WBC decreased to 17.3. Hemoglobin 9.1, platelets 523. Sodium 131 on IV fluids of D5.9. Potassium 3.8, magnesium 1.8, creatinine 0.9. Pain controlled , denies chest pain, palpitations or shortness of breath, maintaining O2 sats in the high 90s on room air. Scheduled for debridement and deep cultures tomorrow with vascular surgery. Objective - Vital Signs Vital signs: Vital Signs Temp 97.7 F 11/02/23 08:00 Pulse 115 H 11/02/23 11:08 Resp 18 11/02/23 11:08 BP 132/88 11/02/23 08:00 Pulse Ox 96 11/02/23 08:00 FiO2 Intake & Output 11/01/23 11/02/23 11/02/23 18:59 06:59 18:59 Intake Total 100 Output Total 550 300 Balance -550 -200 Weight 86.183 kg Intake: Oral 100 Output: Urine 550 300 Other: Voiding Method Toilet Urinal - Exam PHYSICAL EXAM: VITAL SIGNS: [As above] GENERAL: Alert and oriented x 3, sitting up in bed, no acute distress HEENT: Normocephalic, atraumatic ,conjunctivae normal. eyes normal. NECK: Supple, no JVD. CARDIOVASCULAR: S1, S2 regular. No murmur RESPIRATION: Unlabored, equal air entry breath sounds diminished in the bases. ABDOMEN: Soft, nondistended, nontender . No guarding. +BS LEGS: Bilateral lower extremities' dressings clean dry and intact NERVOUS SYSTEM: Cranial N 2-12 grossly normal. Skin: Warm and dry, no rash Microbiology 10/29/23 20:33 Leg - Left Gram Stain - Final 10/29/23 20:33 Leg - Left Wound Culture - Final Pseudomonas aeruginosa Enterococcus faecalis Methicillin resist S. aureus 10/29/23 17:45 Blood Blood Culture - Preliminary 10/29/23 18:00 Blood Blood Culture - Preliminary 10/29/23 20:33 Leg - Left Anaerobic Culture - Preliminary - Labs CBC & Chem 7: 11/02/23 08:39 11/02/23 08:39 Labs: Abnormal Lab Results - Last 24 Hours (Table) 11/02/23 11/02/23 Range/Units 08:39 08:39 WBC 17.3 H (3.8-10.6) k/uL RBC 3.58 L (4.30-5.90) m/uL Hgb 9.1 L (13.0-17.5) gm/dL Hct 31.2 L (39.0-53.0) % MCHC 29.1 L (31.0-37.0) g/dL RDW 23.2 H (11.5-15.5) % Plt Count 523 H (150-450) k/uL Neutrophils # 16.0 H (1.3-7.7) k/uL Lymphocytes # 0.5 L (1.0-4.8) k/uL Sodium 131 L (137-145) mmol/L Carbon Dioxide 17 L (22-30) mmol/L BUN 26 H (9-20) mg/dL Microbiology - Last 24 Hours (Table) 10/29/23 20:33 Gram Stain - Final Leg - Left Wound Culture - Final Pseudomonas aeruginosa Enterococcus faecalis Methicillin resist S. aureus 10/29/23 17:45 Blood Culture - Preliminary Blood 10/29/23 18:00 Blood Culture - Preliminary Blood 10/29/23 20:33 Anaerobic Culture - Preliminary Leg - Left Assessment and Plan Assessment: Sepsis secondary to infected bilateral lower extremity wounds, cellulitis, recent excisional debridement of left lower leg wound with skin substitute placement, excisional debridement of the left great toe wound and excisional debridement of the right lower leg wound x 2 on 10/03/[address] Inman , vascular surgery. Cultures currently growing Pseudomonas aeruginosa and Enterococcus faecalis and MRSA History of Pseudomonas and VRE on last wound culture of left leg 10/03/2023, Lactic acidosis secondary to the above History of Left lower extremity skin dehiscence and wound infection,MSSA, status post excisional debridement and wound VAC. Left great toe ischemia status post excisional debridement History of left femoral tibial bypass secondary to critical limb ischemia History of aortic aneurysm with endovascular repair; Chronic Paroximal atrial fibrillation CAD, history of stent placement Essential hypertension Hyperlipidemia Nicotine dependence Daily alcohol use Noncompliance with medication regimen, patient is high risk for readmission. Iron deficient anemia Hypokalemia Hypomagnesemia Hyponatremia Plan: Continue current medication regimen, monitoring and symptomatic treatment. Maintain IV fluids of D5/0.9 normal saline, continue holding Lasix ,close monitoring of electrolytes and renal function. Debridement tomorrow with vascular surgery. Antibiotics as per infectious disease. Pain management, local wound care. Case management arranging subacute rehab as patient will require IV antibiotics at discharge. The impression and plan of care has been dictated as directed. : I performed a history and examination of this patient, discussed the same with the dictator. I agree with the dictator's note ,documented as a scribe. Any additional findings or plans will be noted.
--- NOTE | 2023-11-02 15:19 | P.PN ---
Subjective Progress Note Date: 11/02/23 Principal diagnosis: Reason for follow-up is bilateral lower extremity infected wounds Patient is a 63-year-old male with a past medical history significant for hypertension hyperlipidemia coronary artery disease, PAD multiple vascular procedures including left femoral-tibial bypass and now has been dealing with the wound to the left lower extremity as well as wound to the right leg being managed in the outpatient setting by vascular surgery Center the hospital by the home care nurse concerning for worsening infection. Patient last wound culture positive for VRE and Pseudomonas. On today's evaluation that is 11/02/2023, patient has been afebrile, patient is breathing comfortably and is currently on room air, patient denies having any significant cough no chest pain shortness of breath, patient denies nausea vomiting or diarrhea and no abdominal pain pain to bilateral extremity slightly decreased in intensity. Patient white count is down to 17.3, creatinine 0.90 blood cultures currently pending Objective - Vital Signs Vital signs: Vital Signs Temp 97.7 F 11/02/23 08:00 Pulse 115 H 11/02/23 11:08 Resp 18 11/02/23 11:08 BP 132/88 11/02/23 08:00 Pulse Ox 96 11/02/23 08:00 FiO2 Intake & Output 11/01/23 11/02/23 11/02/23 18:59 06:59 18:59 Intake Total 100 Output Total 550 300 Balance -550 -200 Weight 86.183 kg Intake: Oral 100 Output: Urine 550 300 Other: Voiding Method Toilet Urinal - Exam GENERAL DESCRIPTION: Middle-age male lying in bed in no distress RESPIRATORY SYSTEM: Unlabored breathing , decreased breath sounds at bases HEART: S1 S2 regular rate and rhythm , ABDOMEN: Soft , no tenderness EXTREMITIES: Left leg wound edges been dressed by the nursing staff right lower extremity wound did have slough tissue some skin necrosis and foul-smelling - Labs CBC & Chem 7: 11/02/23 08:39 11/02/23 08:39 Labs: Abnormal Lab Results - Last 24 Hours (Table) 11/02/23 11/02/23 Range/Units 08:39 08:39 WBC 17.3 H (3.8-10.6) k/uL RBC 3.58 L (4.30-5.90) m/uL Hgb 9.1 L (13.0-17.5) gm/dL Hct 31.2 L (39.0-53.0) % MCHC 29.1 L (31.0-37.0) g/dL RDW 23.2 H (11.5-15.5) % Plt Count 523 H (150-450) k/uL Neutrophils # 16.0 H (1.3-7.7) k/uL Lymphocytes # 0.5 L (1.0-4.8) k/uL Sodium 131 L (137-145) mmol/L Carbon Dioxide 17 L (22-30) mmol/L BUN 26 H (9-20) mg/dL Microbiology - Last 24 Hours (Table) 10/29/23 20:33 Gram Stain - Final Leg - Left Wound Culture - Final Pseudomonas aeruginosa Enterococcus faecalis Methicillin resist S. aureus 10/29/23 17:45 Blood Culture - Preliminary Blood 10/29/23 18:00 Blood Culture - Preliminary Blood 10/29/23 20:33 Anaerobic Culture - Preliminary Leg - Left Assessment and Plan (1) Bilateral lower leg cellulitis Current Visit: Yes Status: Acute Code(s): L03.116 - CELLULITIS OF LEFT LOWER LIMB; L03.115 - CELLULITIS OF RIGHT LOWER LIMB SNOMED Code(s): 332042369 (2) Open wound of both lower extremities Current Visit: Yes Status: Acute Code(s): S81.801A - UNSPECIFIED OPEN WOUND, RIGHT LOWER LEG, INITIAL ENCOUNTER; S81.802A - UNSPECIFIED OPEN WOUND, LEFT LOWER LEG, INITIAL ENCOUNTER SNOMED Code(s): 82450418 (3) Sepsis Current Visit: Yes Status: Acute Code(s): A41.9 - SEPSIS, UNSPECIFIED ORGANISM SNOMED Code(s): 66763206 Plan: 1patient presented to hospital with sepsis in this patient who did have a fever tachycardia elevated white count source is likely bilateral lower extremity wound and cellulitis with more extensive wound to the left lower extremity in this patient who did have a history of PAD and has multiple vascular procedure last wound culture done from the right leg has been Pseudomonas and VRE that was done on 10/03/2023, culture done this admission are growing Pseudomonas aeruginosa Enterococcus faecalis that is not VRE and MRSA 2patient currently waiting for debridement and deep culture, vascular surgery is following the patient 3patient to continue with Zosyn and daptomycin and monitor clinical course closely Dictation was produced using [employer] dictation software. please excuse any grammatical, word or spelling errors. Time with Patient: Less than 30
[2023-11-02] MEDS: MAGNESIUM SULFATE-D5W PMX 1 GM in DEXTROSE/WATER 1 100ML.BAG IVPB ONE (16:18)
[2023-11-03 09:04] LABS: Basophils # (A) 0.07 X 10*3/uL (0.00-0.10); Basophils % (A) 0.3 %; Eosinophils % (A) 0.5 %; HCT 29.2 % (39.6-50.0); HGB 8.7 g/dL (13.0-17.0); Lymphocytes # (A) 0.92 X 10*3/uL (0.90-5.00); Lymphocytes % (A) 4.4 %; MCH 25.4 pg (27.0-32.0); MCHC 29.8 g/dL (32.0-37.0); MCV 85.4 FL (80.0-97.0); Mean Platelet Volume 9.7 FL (9.5-12.2); Monocytes # (A) 0.88 X 10*3/uL (0.20-1.00); Monocytes % (A) 4.3 %; NRBC Per 100 WBC 0 X 10*3/uL (0.00-0.01); Neutrophils # (A) 18.32 X 10*3/uL (1.80-7.70); Neutrophils % (A) 88.6 %; Platelet Count 484 X 10*3/uL (140-440); RBC 3.42 X 10*6/uL (4.40-5.60); RDW 25.7 % (11.5-14.5); WBC 20.68 X 10*3/uL (4.50-10.00)
[2023-11-03 09:39] LABS: Blood Urea Nitrogen 31.2 mg/dL (9.0-27.0); Calcium 8.2 mg/dL (8.7-10.3); Carbon Dioxide 16.8 mmol/L (21.6-31.8); Chloride 100 mmol/L (96-109); Glucose 107 mg/dL (70-110); Potassium 4.1 mmol/L (3.5-5.5); Sodium 130 mmol/L (135-145)
--- NOTE | 2023-11-03 11:40 | P.PN ---
Subjective Progress Note Date: 11/03/23 Principal diagnosis: bilateral lower extremity wounds Patient seen and examined. Complaining of feeling tired and weak. States legs are hurting. He is also having fevers and chills. Objective - Vital Signs Vital signs: Vital Signs Temp 97.1 F L 11/03/23 07:22 Pulse 74 11/03/23 07:22 Resp 22 11/03/23 10:32 BP 90/60 11/03/23 07:22 Pulse Ox 94 L 11/03/23 08:49 FiO2 Intake & Output 11/02/23 11/03/23 11/03/23 18:59 06:59 18:59 Intake Total 100 Output Total 300 200 Balance -200 -200 Weight 86.183 kg Intake: Oral 100 Output: Urine 300 200 Other: Voiding Method Toilet Urinal Urinal Urinal # Voids 2 - Exam Large wound noted in the medial aspect of the lower left leg with multiple areas of bruising and wounds on the right lower extremity with ischemic changes to the skin. Purulent drainage noted from both lower extremities. Multiphasic signal noted at the bypass as well as the DP and PT of the left. Good capillary refill noted. Right lower extremity with monophasic DP and PT signal 2+ pitting edema bilaterally - Labs CBC & Chem 7: 11/03/23 04:46 11/03/23 04:46 Labs: Abnormal Lab Results - Last 24 Hours (Table) 11/03/23 11/03/23 Range/Units 04:46 04:46 WBC 20.68 H (4.50-10.00) X 10*3/uL RBC 3.42 L (4.40-5.60) X 10*6/uL Hgb 8.7 L (13.0-17.0) g/dL Hct 29.2 L (39.6-50.0) % MCH 25.4 L (27.0-32.0) pg MCHC 29.8 L (32.0-37.0) g/dL RDW 25.7 H (11.5-14.5) % Plt Count 484 H (140-440) X 10*3/uL Immature Gran # 0.39 H (0.00-0.04) X 10*3/uL Neutrophils # 18.32 H (1.80-7.70) X 10*3/uL Sodium 130 L (135-145) mmol/L Carbon Dioxide 16.8 L (21.6-31.8) mmol/L Anion Gap 13.20 H (4.00-12.00) mmol/L BUN 31.2 H (9.0-27.0) mg/dL BUN/Creatinine Ratio 26.00 H (12.00-20.00) Ratio Calcium 8.2 L (8.7-10.3) mg/dL Microbiology - Last 24 Hours (Table) 10/29/23 20:33 Gram Stain - Final Leg - Left Wound Culture - Final Pseudomonas aeruginosa Enterococcus faecalis Methicillin resist S. aureus Assessment and Plan Assessment: Bilateral lower extremity chronic wounds with surrounding cellulitis Bilateral lower extremity infected wounds Sepsis secondary to infected bilateral lower extremity wounds Lactic acidosis Noncompliance Nicotine dependence Plan: OR today.
--- NOTE | 2023-11-03 12:24 | P.PN ---
Subjective Progress Note Date: 11/03/23 Principal diagnosis: Reason for follow-up is bilateral lower extremity infected wounds Patient is a 63-year-old male with a past medical history significant for hypertension hyperlipidemia coronary artery disease, PAD multiple vascular procedures including left femoral-tibial bypass and now has been dealing with the wound to the left lower extremity as well as wound to the right leg being managed in the outpatient setting by vascular surgery Center the hospital by the home care nurse concerning for worsening infection. Patient last wound culture positive for VRE and Pseudomonas. On today's evaluation that is 11/03/2023, Patient is afebrile this morning patient denies having any chest pain shortness of breath or cough, the patient is breathing comfortably and currently on room air, patient denies any abdominal pain no diarrhea no nausea no vomiting complaining of pain to the left lower extremity. Patient white count is 20.68, creatinine is 1.2 Objective - Vital Signs Vital signs: Vital Signs Temp 97.1 F L 11/03/23 07:22 Pulse 74 11/03/23 07:22 Resp 22 11/03/23 10:32 BP 90/60 11/03/23 07:22 Pulse Ox 94 L 11/03/23 08:49 FiO2 Intake & Output 11/02/23 11/03/23 11/03/23 18:59 06:59 18:59 Intake Total 100 Output Total 300 200 Balance -200 -200 Weight 86.183 kg Intake: Oral 100 Output: Urine 300 200 Other: Voiding Method Toilet Urinal Urinal Urinal # Voids 2 - Exam GENERAL DESCRIPTION: Middle-age male lying in bed in no distress RESPIRATORY SYSTEM: Unlabored breathing , decreased breath sounds at bases HEART: S1 S2 regular rate and rhythm , ABDOMEN: Soft , no tenderness EXTREMITIES: Left leg wound edges been dressed by the nursing staff right lower extremity wound did have slough tissue some skin necrosis and foul-smelling - Labs CBC & Chem 7: 11/03/23 04:46 11/03/23 04:46 Labs: Abnormal Lab Results - Last 24 Hours (Table) 11/03/23 11/03/23 Range/Units 04:46 04:46 WBC 20.68 H (4.50-10.00) X 10*3/uL RBC 3.42 L (4.40-5.60) X 10*6/uL Hgb 8.7 L (13.0-17.0) g/dL Hct 29.2 L (39.6-50.0) % MCH 25.4 L (27.0-32.0) pg MCHC 29.8 L (32.0-37.0) g/dL RDW 25.7 H (11.5-14.5) % Plt Count 484 H (140-440) X 10*3/uL Immature Gran # 0.39 H (0.00-0.04) X 10*3/uL Neutrophils # 18.32 H (1.80-7.70) X 10*3/uL Sodium 130 L (135-145) mmol/L Carbon Dioxide 16.8 L (21.6-31.8) mmol/L Anion Gap 13.20 H (4.00-12.00) mmol/L BUN 31.2 H (9.0-27.0) mg/dL BUN/Creatinine Ratio 26.00 H (12.00-20.00) Ratio Calcium 8.2 L (8.7-10.3) mg/dL Microbiology - Last 24 Hours (Table) 10/29/23 20:33 Gram Stain - Final Leg - Left Wound Culture - Final Pseudomonas aeruginosa Enterococcus faecalis Methicillin resist S. aureus Assessment and Plan (1) Bilateral lower leg cellulitis Current Visit: Yes Status: Acute Code(s): L03.116 - CELLULITIS OF LEFT LOWER LIMB; L03.115 - CELLULITIS OF RIGHT LOWER LIMB SNOMED Code(s): 251475865 (2) Open wound of both lower extremities Current Visit: Yes Status: Acute Code(s): S81.801A - UNSPECIFIED OPEN WOUND, RIGHT LOWER LEG, INITIAL ENCOUNTER; S81.802A - UNSPECIFIED OPEN WOUND, LEFT LOWE R LEG, INITIAL ENCOUNTER SNOMED Code(s): 31734362 (3) Sepsis Current Visit: Yes Status: Acute Code(s): A41.9 - SEPSIS, UNSPECIFIED ORGANISM SNOMED Code(s): 12886466 Plan: 1patient presented to hospital with sepsis in this patient who did have a fever tachycardia elevated white count source is likely bilateral lower extremity wound and cellulitis with more extensive wound to the left lower extremity in this patient who did have a history of PAD and has multiple vascular procedure last wound culture done from the right leg has been Pseudomonas and VRE that was done on 10/03/2023, culture done this admission are growing Pseudomonas aeruginosa Enterococcus faecalis that is not VRE and MRSA 2patient currently waiting for debridement and deep culture, vascular surgery is following the patient, possible this afternoon as reported by the nursing staff 3patient to continue with Zosyn and daptomycin white count is up and need to be monitored closely Dictation was produced using [employer] dictation software. please excuse any grammatical, word or spelling errors. Time with Patient: Less than 30
[2023-11-03] MEDS: IV FLUID CONTINUATION 1,000 ML IV ONE (14:01)
[2023-11-03] MEDS: DEXAMETHASONE SOD PHOSPHATE 4 MG/ML 1 ML VIAL IVP STA (14:37)
[2023-11-03] MEDS ORDERED: PHENYLEPHRINE 10 MG/ML VIAL ONE (14:51)
[2023-11-03] MEDS ORDERED: PROPOFOL 10 MG/ML 20 ML VIAL IV ONE (14:51)
[2023-11-03] MEDS ORDERED: fentaNYL (PF) 50 MCG/ML 2 ML AMP ONE (14:51)
[2023-11-03] MEDS: HYDROmorphone 0.5 MG/0.5 ML SYRINGE IVP PRN (16:18)
[2023-11-03] MEDS: HYDROmorphone 0.5 MG/0.5 ML SYRINGE IVP STA ×2 (16:42→17:01)
[2023-11-03] MEDS: LACTATED RINGERS 1,000 ML IV SCH (17:01)
--- NOTE | 2023-11-03 17:15 | P.PN ---
Subjective Progress Note Date: 11/03/23 63-year-old gentleman with past medical history significant for PAD, multiple vascular procedures including femoral-tibial bypass followed by wound development, dehiscence of his left lower extremity, status post recent excisional debridement of the left lower leg wound with skin substitute placement, excisional debridement of the left great toe wound and excisional debridement of right lower leg wound x 2 on 10/03/[address] Inman, vascular surgery, presented to the ER with worsening bilateral lower extremity pain, edema, reports right lower extremity "split open" over the last week with serous drainage. His visiting nurse evaluated patient on Monday recommending ER. Denies any chest pain, palpitations or shortness of breath. Denies nausea vomiting or diarrhea. Denies abdominal pain. Denies fever or chills. Denies lightheadedness, dizziness or focal deficits. Wound and blood cultures obtained, initiated on vancomycin in the ER. Tmax 101, WBC 16.3, increased to 19.67, CRP 12.6 .hemoglobin 7.7, platelets 468. Sodium 129, potassium 3.3, bicarb 19, BUN 10, creatinine 0.7. Lactic acid 2.2, improved with IV fluid hydration, 1.1. Magnesium 1-repeat level ordered stat. 11/03/2023 --Patient is evaluated in room at bedside; remains afebrile this morning patient denies having any chest pain shortness of breath or cough, the patient is breathing comfortably and currently on room air, patient denies any abdominal pain no diarrhea no nausea no vomiting complaining of pain to the left lower extremity. Patient white count is 20.68, creatinine is 1.2 Objective - Vital Signs Vital signs: Vital Signs Temp 97.1 F L 11/03/23 07:22 Pulse 74 11/03/23 07:22 Resp 22 11/03/23 10:32 BP 90/60 11/03/23 07:22 Pulse Ox 94 L 11/03/23 08:49 FiO2 Intake & Output 11/02/23 11/03/23 11/03/23 18:59 06:59 18:59 Intake Total 100 Output Total 300 200 Balance -200 -200 Weight 86.183 kg Intake: Oral 100 Output: Urine 300 200 Other: Voiding Method Toilet Urinal Urinal Urinal # Voids 2 - Exam VITAL SIGNS: [As above] GENERAL: Alert and oriented x 3, sitting up in bed, no acute distress HEENT: Normocephalic, atraumatic ,conjunctivae normal. eyes normal. NECK: Supple, no JVD. CARDIOVASCULAR: S1, S2 regular. No murmur RESPIRATION: Unlabored, equal air entry breath sounds diminished in the bases. ABDOMEN: Soft, nondistended, nontender . No guarding. +BS LEGS: Bilateral lower extremities' dressings clean dry and intact NERVOUS SYSTEM: Cranial N 2-12 grossly normal. Skin: Warm and dry, no rash - Labs CBC & Chem 7: 11/03/23 04:46 11/03/23 04:46 Labs: Abnormal Lab Results - Last 24 Hours (Table) 11/03/23 11/03/23 Range/Units 04:46 04:46 WBC 20.68 H (4.50-10.00) X 10*3/uL RBC 3.42 L (4.40-5.60) X 10*6/uL Hgb 8.7 L (13.0-17.0) g/dL Hct 29.2 L (39.6-50.0) % MCH 25.4 L (27.0-32.0) pg MCHC 29.8 L (32.0-37.0) g/dL RDW 25.7 H (11.5-14.5) % Plt Count 484 H (140-440) X 10*3/uL Immature Gran # 0.39 H (0.00-0.04) X 10*3/uL Neutrophils # 18.32 H (1.80-7.70) X 10*3/uL Sodium 130 L (135-145) mmol/L Carbon Dioxide 16.8 L (21.6-31.8) mmol/L Anion Gap 13.20 H (4.00-12.00) mmol/L BUN 31.2 H (9.0-27.0) mg/dL BUN/Creatinine Ratio 26.00 H (12.00-20.00) Ratio Calcium 8.2 L (8.7-10.3) mg/dL Microbiology - Last 24 Hours (Table) 10/29/23 20:33 Gram Stain - Final Leg - Left Wound Culture - Final Pseudomonas aeruginosa Enterococcus faecalis Methicillin resist S. aureus Assessment and Plan Assessment: Sepsis secondary to infected bilateral lower extremity wounds, cellulitis, recent excisional debridement of left lower leg wound with skin substitute placement, excisional debridement of the left great toe wound and excisional debridement of the right lower leg wound x 2 on 10/03/[address] Inman , vascular surgery. Cultures currently growing Pseudomonas aeruginosa and Enterococcus faecalis and MRSA History of Pseudomonas and VRE on last wound culture of left leg 10/03/2023, Lactic acidosis secondary to the above History of Left lower extremity skin dehiscence and wound infection,MSSA, status post excisional debridement and wound VAC. Left great toe ischemia status post excisional debridement History of left femoral tibial bypass secondary to critical limb ischemia History of aortic aneurysm with endovascular repair; Chronic Paroximal atrial fibrillation CAD, history of stent placement Essential hypertension Hyperlipidemia Nicotine dependence Daily alcohol use Noncompliance with medication regimen, patient is high risk for readmission. Iron deficient anemia Hypokalemia Hypomagnesemia Hyponatremia Plan: Continue current medication regimen, monitoring and symptomatic treatment. Maintain IV fluids of D5/0.9 normal saline, continue holding Lasix ,close monitoring of electrolytes and renal function. Debridement tomorrow with vascular surgery. Antibiotics as per infectious disease. Pain management, local wound care. Case management arranging subacute rehab as patient will require IV antibiotics at discharge.
--- NOTE | 2023-11-03 19:09 | P.OP ---
Date of Procedure: 11/03/23 Description of Procedure: Preoperative diagnosis: Bilateral lower extremity wounds, infection Postoperative diagnosis: Same Procedure: Sharp excisional debridement bilateral lower extremities Right heel 2.5 x 2.5 x 0.2 cm to subcutaneous tissue Right posterior leg 13 x 12 x 0.7 cm to muscle/fascia Right anterior leg 9.5 x 8.5 x 0.7 cm to muscle/fascia Left great toe 3 x 2.5 x 0.2 to bone Left leg 23 x 11 x 0.5 to fascia Surgeon: Sameera Isaac D.O. EBL: 10 cc IV fluids: See records Urine output: Not measured Drains: None Complications: None immediately apparent Condition: Stable to recovery Operative indication and findings: Patient is a 63-year-old male with significant lower extremity disease who presents with evidence of infection of his wound requiring debridement. Risks and benefits were discussed. Similar symptoms when to proceed. Procedure in detail: Patient brought to the operative room placed in supine position. The bilateral lower extremities were prepped and draped in usual sterile fashion. A preprocedural timeout was performed, all parties were in agreement. The wounds Were sharply debrided with scalpel and curette at the locations with the measurements as above. There were debrided to healthy appearing tissue. There was some purulent drainage which was cultured on each side. At the conclusion, the wounds are copiously irrigated. Dressings were placed. The patient was transported to recovery in stable condition having tolerated the procedure well.
[2023-11-04] MEDS: SODIUM CHLORIDE 0.9% 500 ML 500 ML IV ONE ×2 (03:25→05:40)
--- NOTE | 2023-11-04 05:18 | CT ---
EXAMINATION TYPE: CT brain wo con DATE OF EXAM: 11/04/2023 HISTORY: ams CT DLP: 1242.8 mGycm. Automated Exposure Control for Dose Reduction was Utilized. TECHNIQUE: CT scan of the head is performed without contrast. COMPARISON: CT brain May 13, 2017 FINDINGS: There is no acute intracranial hemorrhage or midline shift identified. There is mild to m oderate diffuse ventricular and sulcal prominence consistent with diffuse age-related cerebral atroph y. Reyes-white matter differentiation is fairly well preserved. Air-fluid level in the right maxillary sinus. Nasal septum is deviated to right of midline. The globes are intact bilaterally. IMPRESSION: No acute intracranial hemorrhage or midline shift. Acute right maxillary sinus disease n oted.
[2023-11-04 14:48] LABS: Anisocytosis Moderate; Basophils # (A) 0.1 k/uL (0-0.2); Basophils % (A) 0 %; Eosinophils % (A) 0 %; HCT 36.5 % (39.0-53.0); HGB 10.6 gm/dL (13.0-17.5); Hypochromasia Marked; Lymphocytes % (A) 3 %; MCH 25.6 pg (25.0-35.0); MCV 88.4 fL (80.0-100.0); Macrocytosis Slight; Mean Platelet Volume 7.8; Microcytosis Slight; Monocytes # (A) 1.1 k/uL (0-1.0); Monocytes % (A) 3 %; Neutrophils # (A) 35.8 k/uL (1.3-7.7); Neutrophils % (A) 94 %; Platelet Count 801 k/uL (150-450); RBC 4.12 m/uL (4.30-5.90); RDW 23.2 % (11.5-15.5); WBC 38.3 k/uL (3.8-10.6)
[2023-11-04 15:03] LABS: African American GFR (CKD) 50 (>60 ml/min/1.73 sqM); Anion Gap 14 mmol/L; Blood Urea Nitrogen 47 mg/dL (9-20); Carbon Dioxide 14 mmol/L (22-30); Chloride 105 mmol/L (98-107); Glucose 118 mg/dL (74-99); Non-African American GFR(CKD) 43 (>60 ml/min/1.73 sqM); Potassium 4.2 mmol/L (3.5-5.1); Sodium 133 mmol/L (137-145)
[2023-11-04] MEDS: HYDROcodone/APAP 10-325MG 1 EACH TAB PO PRN (16:00)
--- NOTE | 2023-11-04 19:15 | P.PN ---
Subjective Progress Note Date: 11/04/23 Principal diagnosis: Reason for follow-up is bilateral lower extremity infected wounds Patient is a 63-year-old male with a past medical history significant for hypertension hyperlipidemia coronary artery disease, PAD multiple vascular procedures including left femoral-tibial bypass and now has been dealing with the wound to the left lower extremity as well as wound to the right leg being managed in the outpatient setting by vascular surgery Center the hospital by the home care nurse concerning for worsening infection. Patient last wound culture positive for VRE and Pseudomonas. Patient is status post Sharp excisional debridement bilateral lower extremities along with cultures of the purulent material completed on 11/03/2023. On today's evaluation that is 11/04/2023,the patient denies any fever or any chills, patient is breathing comfortably on room air, the patient denies chest pain shortness of breath and no significant cough, patient denies abdominal pain, no nausea vomiting or diarrhea. Patient secondary complaint of bilateral lower extremity wound. Patient white count is up to 38.3, creatinine is 1.66 Objective - Vital Signs Vital signs: Vital Signs Temp 97.9 F 11/04/23 02:48 Pulse 75 11/04/23 06:48 Resp 18 11/04/23 02:48 BP 82/57 11/04/23 06:48 Pulse Ox 94 L 11/04/23 06:48 FiO2 Intake & Output 11/03/23 11/04/23 11/04/23 18:59 06:59 18:59 Intake Total 450 Output Total 560 200 Balance -110 -200 Intake: IV 450 Output: Urine 550 200 Estimated Blood Loss 10 Other: Voiding Method Urinal Urinal - Exam GENERAL DESCRIPTION: Middle-age male lying in bed in no distress RESPIRATORY SYSTEM: Unlabored breathing , decreased breath sounds at bases HEART: S1 S2 regular rate and rhythm , ABDOMEN: Soft , no tenderness EXTREMITIES: Bilateral extremity wounds currently dressed no drainage - Labs CBC & Chem 7: 11/04/23 14:19 11/04/23 14:19 Labs: Abnormal Lab Results - Last 24 Hours (Table) 11/03/23 11/03/23 Range/Units 04:46 04:46 WBC 20.68 H (4.50-10.00) X 10*3/uL RBC 3.42 L (4.40-5.60) X 10*6/uL Hgb 8.7 L (13.0-17.0) g/dL Hct 29.2 L (39.6-50.0) % MCH 25.4 L (27.0-32.0) pg MCHC 29.8 L (32.0-37.0) g/dL RDW 25.7 H (11.5-14.5) % Plt Count 484 H (140-440) X 10*3/uL Immature Gran # 0.39 H (0.00-0.04) X 10*3/uL Neutrophils # 18.32 H (1.80-7.70) X 10*3/uL Sodium 130 L (135-145) mmol/L Carbon Dioxide 16.8 L (21.6-31.8) mmol/L Anion Gap 13.20 H (4.00-12.00) mmol/L BUN 31.2 H (9.0-27.0) mg/dL BUN/Creatinine Ratio 26.00 H (12.00-20.00) Ratio Calcium 8.2 L (8.7-10.3) mg/dL Microbiology - Last 24 Hours (Table) 10/29/23 17:45 Blood Culture - Final Blood 10/29/23 18:00 Blood Culture - Final Blood 10/29/23 20:33 Anaerobic Culture - Final Leg - Left Assessment and Plan (1) Bilateral lower leg cellulitis Current Visit: Yes Status: Acute Code(s): L03.116 - CELLULITIS OF LEFT LOWER LIMB; L03.115 - CELLULITIS OF RIGHT LOWER LIMB SNOMED Code(s): 764324090 (2) Open wound of both lower extremities Current Visit: Yes Status: Acute Code(s): S81.801A - UNSPECIFIED OPEN WOUND, RIGHT LOWER LEG, INITIAL ENCOUNTER; S81.802A - UNSPECIFIED OPEN WOUND, LEFT LOWER LEG, INITIAL ENCOUNTER SNOMED Code(s): 05048132 (3) Sepsis Current Visit: Yes Status: Acute Code(s): A41.9 - SEPSIS, UNSPECIFIED ORGANISM SNOMED Code(s): 21839574 Plan: 1patient presented to hospital with sepsis in this patient who did have a fever tachycardia elevated white count source is likely bilateral lower extremity wound and cellulitis with more extensive wound to the left lower extremity in this patient who did have a history of PAD and has multiple vascular procedure last wound culture done from the right leg has been Pseudomonas and VRE that was done on 10/03/2023, culture done this admission are growing Pseudomonas aeruginosa Enterococcus faecalis that is not VRE and MRSA 2patient is status post r debridement and deep culture completed on 11/03/2023 results will be followed 3patient did have significant drop in white count possible post reactive after surgical debridement we will repeat a CBC with a.m. lab, to continue with Zosyn and daptomycin and monitor clinical course closely Dictation was produced using [employer] dictation software. please excuse any grammatical, word or spelling errors. Time with Patient: Less than 30
[2023-11-05 12:31] LABS: Glucose,Whole Blood 136 mg/dL (70-110)
--- NOTE | 2023-11-05 13:49 | XR ---
EXAMINATION TYPE: XR chest 1V portable DATE OF EXAM: 11/05/2023 COMPARISON: 08/25/2023 INDICATION: Respiratory distress TECHNIQUE: Single frontal view of the chest is obtained. FINDINGS: The heart size is normal. The pulmonary vasculature is normal. Mild left lower lobe infiltrate is present. There is a pneumoperitoneum. Report was called to the floor at the time of interpretation. No recent abdominal surgery. Additional workup is recommended. IMPRESSION: 1. Pneumoperitoneum. 2. Left lower lobe atelectasis
--- NOTE | 2023-11-05 13:51 | XR ---
EXAMINATION TYPE: XR abdomen 1V DATE OF EXAM: 11/05/2023 COMPARISON: Chest x-ray same date INDICATION: Abdomen pain TECHNIQUE: Single view abdomen supine view FINDINGS: Nonspecific bowel gas pattern. Psoas margins are normal. No organomegaly is present. Aortoiliac stent is present. Vascular calcification is in the proximal thighs. Patient's pneumoperitoneum identified on chest x-ray is not appreciated on the abdomen film likely du e to positioning. IMPRESSION: 1. Nonspecific abdomen. 2. Pneumoperitoneum identified on chest film same date.
[2023-11-05 13:57] LABS: Glucose,Whole Blood 119 mg/dL (70-110)
--- NOTE | 2023-11-05 14:02 | CT ---
EXAMINATION TYPE: CT abdomen pelvis wo con DATE OF EXAM: 11/05/2023 COMPARISON: 05/26/2023 INDICATION: ABD PAIN DLP: 896.6 mGycm, Automated exposure control for dose reduction was used. CONTRAST: 0 mL of Isovue 300. Study performed without Oral Contrast TECHNIQUE: Axial images were obtained from above the diaphragm to the pubic rami in the axial plane a t 5 mm thick sections. Reconstructed images are reviewed on the computer in the coronal plane. FINDINGS: Limited CT sections are obtained the lung bases. There is a small left pleural effusion.. CT ABDOMEN: Ascites is present. A large pneumoperitoneum is present. Small amount of air is adjacent to the gallbladder fossa. Free air appears to be present adjacent to the caudate lobe of the liver. By history there is no recent abdominal surgery. Liver: Normal Spleen: Normal Pancreas: Normal Adrenal glands: The adrenal glands are normal. Gallbladder: Normal Kidneys: No masses are evident. No hydronephrosis is present. No cysts are present. Delayed images were obtained through the kidneys, which remain unremarkable. Aorta: Vascular calcification is within the aorta. Aortic stent is present. Large aneurysm adjacent to the stent is evident within the abdominal aorta. Of this was present previously and may be slightl y smaller than comparison current measurements 6.5 x 5.2 cm. Previous measurement 6.9 x 5.8 cm. Inferior vena cava: Displaced by the aortic aneurysm. CT PELVIS: Loops of bowel within the abdomen and pelvis are normal. This study is without oral contrast limi ting evaluation. Appendix: Not identified. No dilated tubular structure or inflammatory changes evident. Urinary bladder: Decompressed with Isaac catheter. There is some air within the urinary bladder. Genitourinary structures: Prostate appears normal. Osseous structures: No suspicious lytic or sclerotic lesions. IMPRESSION: 1. Pneumoperitoneum of uncertain etiology. Consider an epigastric source where some more loculated a ir appears to be present 2. Moderate ascites. 3. Small left pleural effusion. 4. Chronic abdominal aortic aneurysm slightly smaller than comparison. The adjacent abdominal aorta i s stented.
[2023-11-05] MEDS: SODIUM CHLORIDE 0.9% 2,000 ML IV ONE (15:05)
[2023-11-05] MEDS: LACTATED RINGERS 1,000 ML IV SCH (15:05)
--- NOTE | 2023-11-05 15:09 | P.PN ---
Subjective Progress Note Date: 11/04/23 63-year-old gentleman with past medical history significant for PAD, multiple vascular procedures including femoral-tibial bypass followed by wound development, dehiscence of his left lower extremity, status post recent excisional debridement of the left lower leg wound with skin substitute placement, excisional debridement of the left great toe wound and excisional debridement of right lower leg wound x 2 on 10/03/[address] Inman, vascular surgery, presented to the ER with worsening bilateral lower extremity pain, edema, reports right lower extremity "split open" over the last week with serous drainage. His visiting nurse evaluated patient on Monday recommending ER. Denies any chest pain, palpitations or shortness of breath. Denies nausea vomiting or diarrhea. Denies abdominal pain. Denies fever or chills. Denies lightheadedness, dizziness or focal deficits. Wound and blood cultures obtained, initiated on vancomycin in the ER. Tmax 101, WBC 16.3, increased to 19.67, CRP 12.6 .hemoglobin 7.7, platelets 468. Sodium 129, potassium 3.3, bicarb 19, BUN 10, creatinine 0.7. Lactic acid 2.2, improved with IV fluid hydration, 1.1. Magnesium 1-repeat level ordered stat. 11/03/2023 --Patient is evaluated in room at bedside; remains afebrile this morning patient denies having any chest pain shortness of breath or cough, the patient is breathing comfortably and currently on room air, patient denies any abdominal pain no diarrhea no nausea no vomiting complaining of pain to the left lower extremity. Patient white count is 20.68, creatinine is 1.2 11/04/2023 -- the patient is seen and evaluated in room at bedside; denies any fever or any chills, patient is breathing comfortably on room air, the patient denies chest pain shortness of breath and no significant cough, patient denies abdominal pain, no nausea vomiting or diarrhea. Patient secondary complaint of bilateral lower extremity wound. --Patient white count is up to 38.3, creatinine is 1.66 patient is status post r debridement and deep culture completed on 11/03/2023 results will be followed patient did have significant drop in white count possible post reactive after surgical debridement we will repeat a CBC with a.m. lab, to continue with Zosyn and daptomycin and monitor clinical course closely Objective - Vital Signs Vital signs: Vital Signs Temp 97.5 F L 11/04/23 07:49 Pulse 77 11/04/23 08:00 Resp 18 11/04/23 08:00 BP 93/64 11/04/23 08:00 Pulse Ox 94 L 11/04/23 07:49 FiO2 Intake & Output 11/03/23 11/04/23 11/04/23 18:59 06:59 18:59 Intake Total 450 Output Total 560 200 Balance -110 -200 Intake: IV 450 Output: Urine 550 200 Estimated Blood Loss 10 Other: Voiding Method Urinal Urinal Urinal - Exam VITAL SIGNS: [As above] GENERAL: Alert and oriented x 3, sitting up in bed, no acute distress HEENT: Normocephalic, atraumatic ,conjunctivae normal. eyes normal. NECK: Supple, no JVD. CARDIOVASCULAR: S1, S2 regular. No murmur RESPIRATION: Unlabored, equal air entry breath sounds diminished in the bases. ABDOMEN: Soft, nondistended, nontender . No guarding. +BS LEGS: Bilateral lower extremities' dressings clean dry and intact NERVOUS SYSTEM: Cranial N 2-12 grossly normal. Skin: Warm and dry, no rash - Labs CBC & Chem 7: 11/04/23 14:19 11/04/23 14:19 Labs: Microbiology - Last 24 Hours (Table) 10/29/23 17:45 Blood Culture - Final Blood 10/29/23 18:00 Blood Culture - Final Blood 10/29/23 20:33 Anaerobic Culture - Final Leg - Left Assessment and Plan Assessment: Sepsis secondary to infected bilateral lower extremity wounds, cellulitis, r ecent excisional debridement of left lower leg wound with skin substitute placement, excisional debridement of the left great toe wound and excisional debridement of the right lower leg wound x 2 on 10/03/[address] Inman , vascular surgery. Cultures currently growing Pseudomonas aeruginosa and Enterococcus faecalis and MRSA History of Pseudomonas and VRE on last wound culture of left leg 10/03/2023, Lactic acidosis secondary to the above History of Left lower extremity skin dehiscence and wound infection,MSSA, status post excisional debridement and wound VAC. Left great toe ischemia status post excisional debridement History of left femoral tibial bypass secondary to critical limb ischemia History of aortic aneurysm with endovascular repair; Chronic Paroximal atrial fibrillation CAD, history of stent placement Essential hypertension Hyperlipidemia Nicotine dependence Daily alcohol use Noncompliance with medication regimen, patient is high risk for readmission. Iron deficient anemia Hypokalemia Hypomagnesemia Hyponatremia Plan: Continue current medication regimen, monitoring and symptomatic treatment. Maintain IV fluids of D5/0.9 normal saline, continue holding Lasix ,close m onitoring of electrolytes and renal function. Debridement tomorrow with vascular surgery. Antibiotics as per infectious disease. Pain management, local wound care. Case management arranging subacute rehab as patient will require IV antibiotics at discharge.
--- NOTE | 2023-11-05 15:14 | P.PN ---
Subjective Progress Note Date: 11/05/23 63-year-old gentleman with past medical history significant for PAD, multiple vascular procedures including femoral-tibial bypass followed by wound development, dehiscence of his left lower extremity, status post recent excisional debridement of the left lower leg wound with skin substitute placement, excisional debridement of the left great toe wound and excisional debridement of right lower leg wound x 2 on 10/03/[address] Inman, vascular surgery, presented to the ER with worsening bilateral lower extremity pain, edema, reports right lower extremity "split open" over the last week with serous drainage. His visiting nurse evaluated patient on Monday recommending ER. Denies any chest pain, palpitations or shortness of breath. Denies nausea vomiting or diarrhea. Denies abdominal pain. Denies fever or chills. Denies lightheadedness, dizziness or focal deficits. Wound and blood cultures obtained, initiated on vancomycin in the ER. Tmax 101, WBC 16.3, increased to 19.67, CRP 12.6 .hemoglobin 7.7, platelets 468. Sodium 129, potassium 3.3, bicarb 19, BUN 10, creatinine 0.7. Lactic acid 2.2, improved with IV fluid hydration, 1.1. Magnesium 1-repeat level ordered stat. 11/03/2023 --Patient is evaluated in room at bedside; remains afebrile this morning patient denies having any chest pain shortness of breath or cough, the patient is breathing comfortably and currently on room air, patient denies any abdominal pain no diarrhea no nausea no vomiting complaining of pain to the left lower extremity. Patient white count is 20.68, creatinine is 1.2 11/04/2023 -- the patient is seen and evaluated in room at bedside; denies any fever or any chills, patient is breathing comfortably on room air, the patient denies chest pain shortness of breath and no significant cough, patient denies abdominal pain, no nausea vomiting or diarrhea. Patient secondary complaint of bilateral lower extremity wound. --Patient white count is up to 38.3, creatinine is 1.66 patient is status post r debridement and deep culture completed on 11/03/2023 results will be followed patient did have significant drop in white count possible post reactive after surgical debridement we will repeat a CBC with a.m. lab, to continue with Zosyn and daptomycin and monitor clinical course closely 11/05/2023 Patient seen and evaluated in room at bedside; staff is present in the room; rapid response was called on the patient for complaint of abdominal pain and softer blood pressure --Stat CT of the abdomen, chest x-ray were ordered and patient received 2 IV fluid boluses in form of normal saline, 500 cc each -- CT of the abdomen reveals pneumoperitoneum with likely source being stomach; this was discussed with general surgery and intensive care physician; patient high risk for any surgical intervention -Patient transferred to ICU; discussed with patient's family; family is requesting to make patient DNR Objective - Vital Signs Vital signs: Vital Signs Temp 97.5 F L 11/05/23 01:30 Pulse 84 11/05/23 07:25 Resp 19 11/05/23 07:25 BP 118/81 11/05/23 07:11 Pulse Ox 94 L 11/05/23 04:21 FiO2 Intake & Output 11/04/23 11/05/23 11/05/23 18:59 06:59 18:59 Output Total 200 150 Balance -200 -150 Output: Urine 200 150 Other: Voiding Method Urinal Urinal Urinal - Exam VITAL SIGNS: [As above] GENERAL: Alert and oriented x 3, sitting up in bed, no acute distress HEENT: Normocephalic, atraumatic ,conjunctivae normal. eyes normal. NECK: Supple, no JVD. CARDIOVASCULAR: S1, S2 regular. No murmur RESPIRATION: Unlabored, equal air entry breath sounds diminished in the bases. ABDOMEN: Soft, nondistended, nontender . No guarding. +BS LEGS: Bilateral lower extremities' dressings clean dry and intact NERVOUS SYSTEM: Cranial N 2-12 grossly normal. Skin: Warm and dry, no rash - Labs CBC & Chem 7: 11/04/23 14:19 11/04/23 14:19 Labs: Abnormal Lab Results - Last 24 Hours (Table) 11/04/23 11/04/23 11/05/23 Range/Units 14:19 14:19 12:30 WBC 38.3 H (3.8-10.6) k/uL RBC 4.12 L (4.30-5.90) m/uL Hgb 10.6 L (13.0-17.5) gm/dL Hct 36.5 L (39.0-53.0) % MCHC 29.0 L (31.0-37.0) g/dL RDW 23.2 H (11.5-15.5) % Plt Count 801 H (150-450) k/uL Neutrophils # 35.8 H (1.3-7.7) k/uL Monocytes # 1.1 H (0-1.0) k/uL Sodium 133 L (137-145) mmol/L Carbon Dioxide 14 L (22-30) mmol/L BUN 47 H (9-20) mg/dL Creatinine 1.66 H (0.66-1.25) mg/dL Glucose 118 H (74-99) mg/dL POC Glucose (mg/dL) 136 H (70-110) mg/dL 11/05/23 Range/Units 13:54 WBC (3.8-10.6) k/uL RBC (4.30-5.90) m/uL Hgb (13.0-17.5) gm/dL Hct (39.0-53.0) % MCHC (31.0-37.0) g/dL RDW (11.5-15.5) % Plt Count (150-450) k/uL Neutrophils # (1.3-7.7) k/uL Monocytes # (0-1.0) k/uL Sodium (137-145) mmol/L Carbon Dioxide (22-30) mmol/L BUN (9-20) mg/dL Creatinine (0.66-1.25) mg/dL Glucose (74-99) mg/dL POC Glucose (mg/dL) 119 H (70-110) mg/dL Microbiology - Last 24 Hours (Table) 11/03/23 15:10 Gram Stain - Preliminary Other - Other Wound Culture - Preliminary Pseudomonas aeruginosa Staphylococcus aureus 11/03/23 15:15 Gram Stain - Preliminary Other - Other Wound Culture - Preliminary Pseudomonas aeruginosa Morganella morganii Enterococcus faecalis Assessment and Plan Assessment: Sepsis secondary to infected bilateral lower extremity wounds, cellulitis, recent excisional debridement of left lower leg wound with skin substitute placement, excisional debridement of the left great toe wound and excisional debridement of the right lower leg wound x 2 on 10/03/[address] Inman , vascular surgery. Cultures currently growing Pseudomonas aeruginosa and Enterococcus faecalis and MRSA History of Pseudomonas and VRE on last wound culture of left leg 10/03/2023, Lactic acidosis secondary to the above History of Left lower extremity skin dehiscence and wound infection,MSSA, status post excisional debridement and wound VAC. Left great toe ischemia status post excisional debridement History of left femoral tibial bypass secondary to critical limb ischemia History of aortic aneurysm with endovascular repair; Chronic Paroximal atrial fibrillation CAD, history of stent placement Essential hypertension Hyperlipidemia Nicotine dependence Daily alcohol use Noncompliance with medication regimen, patient is high risk for readmission. Iron deficient anemia Hypokalemia Hypomagnesemia Hyponatremia Plan: Continue current medication regimen, monitoring and symptomatic treatment. Maintain IV fluids of D5/0.9 normal saline, continue holding Lasix ,close monitoring of electrolytes and renal function. Debridement tomorrow with vascular surgery. Antibiotics as per infectious disease. Pain management, local wound care. Case management arranging subacute rehab as patient will require IV antibiotics at discharge.
[2023-11-05] MEDS ORDERED: LIDOCAINE 1% INJ 10MG/ML (20 ML MDV) ONE (15:45)
[2023-11-05] MEDS ORDERED: ROCURONIUM 10 MG/ML (5 ML VIAL) IV ONE (15:45)
[2023-11-05] MEDS ORDERED: PHENYLEPHRINE-0.9% NACL SYG 1,000 MCG/10 ML SYRINGE ONE (15:45)
[2023-11-05] MEDS ORDERED: fentaNYL (PF) 50 MCG/ML 2 ML AMP ONE (15:45)
[2023-11-05] MEDS ORDERED: SUCCINYLCHOLINE CHLORIDE 200 MG/10 ML VIAL IV ONE (15:45)
[2023-11-05] MEDS ORDERED: ETOMIDATE 2 MG/ML 10 ML VIAL ONE (15:45)
[2023-11-05] MEDS ORDERED: ALBUMIN HUMAN 5% (25gm) 500 ML VIAL IVPB ONE (15:45)
[2023-11-05] MEDS ORDERED: NOREPINEPHRINE 1 MG/ML 4 ML VIAL IV ONE (15:45)
[2023-11-05] MEDS: LACTATED RINGERS 1,000 ML IV ONE (16:15)
--- NOTE | 2023-11-05 16:43 | P.ANPRN ---
Procedure Note - Anesthesia - Invasive Line Right Arterial Line Time Out Performed: Yes (1355) Date of Procedure: 11/05/23 Time of Procedure: 15:22 Location of Patient: OR Preparation: Sterile Prep, Sterile Dressing Arterial Line Location: Briachial (Radial too small. Braiachial at antecub. fossa with 12cm cath) Ultrasound Used: Yes Purpose - Visualization and Identification of Vasculature: Yes Needle Guage: 20g Image Stored and Saved: Yes Narrative: Invasive line placement per sterile protocol utilized.
--- NOTE | 2023-11-05 16:45 | P.ANPRN ---
Procedure Note - Anesthesia - Invasive Line Right Central Line Time Out Performed: Yes (1555) Date of Procedure: 11/05/23 Time of Procedure: 16:01 Location of Patient: OR Preparation: Sterile Prep, Sterile Dressing Central Line Location: Internal Jugular (right IJ TLC) Ultrasound Used: Yes Purpose - Visualization and Identification of Vasculature: Yes Needle Guage: 18g angio Image Stored and Saved: Yes Narrative: Invasive line placement per sterile protocol utilized. Anesthesia note Procedure: Right internal jugular central venous catheter insertion: Balloon catheter Sterile protocol followed. Right neck prepped. Ultrasound used. Lidocaine 1% used. Using ultrasound local anesthetic was instilled site over right Internal Jugular vein. Angiocath was used to gain access via ultrasound. Once free flow non-pulsatile blood flow was confirmed, 12 inch extension tubing was then placed on Angiocath. Once central venous pressure was confirmed, J-wire was then placed through Angiocath. Angiocath was then withdrawn. Local was instilled at J-wire site. Small skin fabricio was then made with provided sterile scalpel. Dilator followed by right IJ triple-lumen catheter was then inserted over the wire while maintaining control of wire at all times. Uneventful insertion with dilation. Free flow nonpulsatile blood flow through Cordis. Hooked up to IV tubing. Secured with suture. Dressings applied. Drapes Removed. Attempts x1.
[2023-11-05 17:04] LABS: Anisocytosis Moderate; HCT 32.7 % (39.0-53.0); HGB 9.4 gm/dL (13.0-17.5); Hypochromasia Marked; MCH 25.5 pg (25.0-35.0); MCHC 28.9 g/dL (31.0-37.0); MCV 88.4 fL (80.0-100.0); Macrocytosis Slight; Mean Platelet Volume 8.4; Microcytosis Slight; Platelet Count 647 k/uL (150-450); RDW 23.3 % (11.5-15.5); WBC 31.8 k/uL (3.8-10.6)
[2023-11-05 17:07] LABS: African American GFR (CKD) 31 (>60 ml/min/1.73 sqM); Anion Gap 11 mmol/L; Blood Urea Nitrogen 53 mg/dL (9-20); Calcium 7.5 mg/dL (8.4-10.2); Carbon Dioxide 12 mmol/L (22-30); Chloride 112 mmol/L (98-107); Glucose 120 mg/dL (74-99); Non-African American GFR(CKD) 27 (>60 ml/min/1.73 sqM); Potassium 4.2 mmol/L (3.5-5.1); Sodium 135 mmol/L (137-145)
--- NOTE | 2023-11-05 17:12 | P.OP ---
Date of Procedure: 11/05/23 Preoperative Diagnosis: Perforated viscus Postoperative Diagnosis: Perforated gastric ulcer Procedure(s) Performed: Exploratory laparotomy Repair of perforated gastric ulcer Anesthesia: DAVID Surgeon: Igor Gracia Estimated Blood Loss (ml): 25 Pathology: none sent Condition: stable Disposition: PACU Description of Procedure: Patient was placed on the operative table in supine position. He received general endotracheal tube anesthesia. His abdomen was prepped and draped you sterile fashion. Patient had a previous midline scar. Use electrocautery the abdominal wall was divided. There was mesh in the abdominal wall. There were adhesions noted to the mesh. These were taken down with sharp dissection. The patient had a large volume of bilious ascites. Approxi-1 L of bilious fluid was aspirated. Once that he is were taken down. The anterior gastric wall perfora ivon ulcer was visualized. This was closed using a modified Jasvir patch technique using 3-0 silk suture and a portion of the omentum. Once the ulcer was closed the abdomen is irrigated there is no bleeding seen. A SANDY drain was placed near the ulcer bed. The fascia was closed with looped #1 PDS suture. The wound was kept open and a wound VAC was applied. Patient was sent back to the ICU ventilated in critical condition.
[2023-11-05] MEDS: ANIDULAFUNGIN 200 MG in SODIUM CHLORIDE 0.9% 200 ML IVPB ONE (17:43)
[2023-11-05] MEDS: NOREPINEPHRINE 4 MG in SODIUM CHLORIDE 0.9% 250 ML IV SCH (17:44)
[2023-11-05 17:50] LABS: Band Neutrophils % 5 %; Lymphocytes # (M) 1.59 k/uL (1.0-4.8); Monocytes # (M) 0.64 k/uL (0-1.0); Neutrophils % (M) 88 %; Nucleated Red Blood Cells 0 /100 WBC (0-0); Total Cells Counted 100
--- NOTE | 2023-11-05 17:54 | XR ---
EXAMINATION TYPE: XR chest 1V portable DATE OF EXAM: 11/05/2023 5:46 PM CLINICAL INDICATION: Male, 63 years old with history of Tube placement; COMPARISON: Same day TECHNIQUE: XR chest 1V portable Frontal view of the chest. FINDINGS: Lungs/Pleura: Blunting of the left costophrenic angle. There is no evidence of right pleural effusion , focal consolidation, or pneumothorax. Pulmonary vascularity: Unremarkable. Heart/mediastinum: Cardiomediastinal silhouette is unremarkable. Musculoskeletal: No acute osseous pathology. Other findings: None Lines/Tubes: Endotracheal tube with distal tip 8.7 cm above the prince. Nasogastric tube with its distal tip and side-port projecting under the diaphragm. Right internal jugular central venous catheter with distal tip at the cavoatrial junction. IMPRESSION: Endotracheal tube is in a high position consider advancement of 6 cm for optimal placement. Nasogastric tube in appropriate position. Left pleural effusion.
--- NOTE | 2023-11-05 17:59 | P.PN ---
Subjective Progress Note Date: 11/05/23 Principal diagnosis: Reason for follow-up is bilateral lower extremity infected wounds Patient is a 63-year-old male with a past medical history significant for hypertension hyperlipidemia coronary artery disease, PAD multiple vascular procedures including left femoral-tibial bypass and now has been dealing with the wound to the left lower extremity as well as wound to the right leg being managed in the outpatient setting by vascular surgery Center the hospital by the home care nurse concerning for worsening infection. Patient last wound culture positive for VRE and Pseudomonas. Patient is status post Sharp excisional debridement bilateral lower extremities along with cultures of the purulent material completed on 11/03/2023. On today's evaluation that is 11/05/2023,the patient remains to be afebrile, patient did have significant change in his clinical condition at the patient was noted to be hypotensive and hypothermic this afternoon also noted to have some abdominal distention but no vomiting diarrhea has been reported patient himself was complaining of pain but unable to provide reliable history. Patient white count is pending from this morning Objective - Vital Signs Vital signs: Vital Signs Temp 97.5 F L 11/05/23 01:30 Pulse 84 11/05/23 07:25 Resp 19 11/05/23 07:25 BP 118/81 11/05/23 07:11 Pulse Ox 94 L 11/05/23 04:21 FiO2 Intake & Output 11/04/23 11/05/23 11/05/23 18:59 06:59 18:59 Output Total 200 150 Balance -200 -150 Output: Urine 200 150 Other: Voiding Method Urinal Urinal Urinal - Exam GENERAL DESCRIPTION: Middle-age male lying in bed in no distress RESPIRATORY SYSTEM: Unlabored breathing , decreased breath sounds at bases HEART: S1 S2 regular rate and rhythm , ABDOMEN: Soft , mild distention EXTREMITIES: Bilateral extremity wounds currently dressed no drainage - Labs CBC & Chem 7: 11/05/23 16:40 11/05/23 16:40 Labs: Abnormal Lab Results - Last 24 Hours (Table) 11/04/23 11/04/23 11/05/23 Range/Units 14:19 14:19 12:30 WBC 38.3 H (3.8-10.6) k/uL RBC 4.12 L (4.30-5.90) m/uL Hgb 10.6 L (13.0-17.5) gm/dL Hct 36.5 L (39.0-53.0) % MCHC 29.0 L (31.0-37.0) g/dL RDW 23.2 H (11.5-15.5) % Plt Count 801 H (150-450) k/uL Neutrophils # 35.8 H (1.3-7.7) k/uL Monocytes # 1.1 H (0-1.0) k/uL Sodium 133 L (137-145) mmol/L Carbon Dioxide 14 L (22-30) mmol/L BUN 47 H (9-20) mg/dL Creatinine 1.66 H (0.66-1.25) mg/dL Glucose 118 H (74-99) mg/dL POC Glucose (mg/dL) 136 H (70-110) mg/dL Microbiology - Last 24 Hours (Table) 11/03/23 15:10 Gram Stain - Preliminary Other - Other Wound Culture - Preliminary Pseudomonas aeruginosa Staphylococcus aureus 11/03/23 15:15 Gram Stain - Preliminary Other - Other Wound Culture - Preliminary Pseudomonas aeruginosa Morganella morganii Enterococcus faecalis Assessment and Plan (1) Bilateral lower leg cellulitis Current Visit: Yes Status: Acute Code(s): L03.116 - CELLULITIS OF LEFT LOWER LIMB; L03.115 - CELLULITIS OF RIGHT LOWER LIMB SNOMED Code(s): 760573877 (2) Open wound of both lower extremities Current Visit: Yes Status: Acute Code(s): S81.801A - UNSPECIFIED OPEN WOUND, RIGHT LOWER LEG, INITIAL ENCOUNTER; S81.802A - UNSPECIFIED OPEN WOUND, LEFT LOWER LEG, INITIAL ENCOUNTER SNOMED Code(s): 86525732 (3) Sepsis Current Visit: Yes Status: Acute Code(s): A41.9 - SEPSIS, UNSPECIFIED ORGANISM SNOMED Code(s): 77099259 Plan: 1patient presented to hospital with sepsis in this patient who did have a fever tachycardia elevated white count source is likely bilateral lower extremity wound and cellulitis with more extensive wound to the left lower extremity in th is patient who did have a history of PAD and has multiple vascular procedure last wound culture done from the right leg has been Pseudomonas and VRE that was done on 10/03/2023, culture done this admission are growing Pseudomonas aeruginosa Enterococcus faecalis that is not VRE and MRSA 2patient is status post debridement and deep culture completed on 11/03/2023 results will be followed 3patient did have hypotension and significant leukocytosis concern for possible abdominal source CT has been ordered we will also check blood cultures 4-patient currently covered with the daptomycin and Zosyn to continue we will add Eraxis for fungal coverage as concern for possible perforated peptic ulcer Care has been discussed in detail with the surgeon as well as with the medical team Dictation was produced using [employer] dictation software. please excuse any grammatical, word or spelling errors. Time with Patient: Greater than 30
[2023-11-05 18:03] LABS: ABG Base Excess -13.8 mmol/L; ABG HCO3 15 mmol/L (21-25); ABG Oxygen Saturation 99.9 % (94-97); ABG PCO2 45 mmHg (35-45); ABG PO2 327 mmHg (83-108); ABG TCO2 16 mmol/L (19-24); Allen Test Performed? Yes
[2023-11-05 18:08] LABS: ABG PH 7.12 (7.35-7.45)
[2023-11-05] MEDS: SODIUM BICARB 8.4% 50 ML SYR (1 MEQ/ML) IV STA (18:21)
[2023-11-05] MEDS: CHLORHEXIDINE GLUCONATE 15 ML CUP MUCOUS MEM SCH (20:06)
[2023-11-05] MEDS ORDERED: METOPROLOL TARTRATE 5 MG/5 ML VIAL IVP PRN (23:50)
[2023-11-06] MEDS: SODIUM CHLORIDE 0.9% 1,000 ML IV ONE (00:01)
[2023-11-06 00:49] LABS: Glucose,Whole Blood 124 mg/dL (70-110)
--- NOTE | 2023-11-06 00:59 | P.CNPUL ---
History of Present Illness Consult date: 11/06/23 Requesting physician: Arslan De Guzman Reason for consult: other (ICU management) Chief complaint: Abdominal pain, hypotension History of present illness: Patient is a 63-year-old white male with past medical history significant for chronic bilateral lower extremity wounds with multiple previous debridements, peripheral vascular disease, recent femoropopliteal artery bypass, AAA, coronary artery disease, hyperlipidemia, hypertension, and tobacco dependence. He is currently intubated to the mechanical ventilator in the intensive care unit, and unable to provide any information for HPI. Apparently, he presented to the emergency department on 10/29/2023 with his lower extremity wounds and suspected cellulitis/sepsis. He follows with vascular surgery. On 11/03/2023 he did undergo debridement of his bilateral lower extremity wounds. Wound cultures positive for polymicrobial organisms including Pseudomonas aeruginosa, MRSA, Enterococcus faecalis. Antibiotics are being directed by infectious disease. Yesterday, on 11/05/2023 the patient was having some abdominal pain and issues with hypotension. A rapid response was called. CT of the abdomen and pelvis without contrast demonstrated a pneumoperitoneum. Patient was then taken to the operating room yesterday evening for an exploratory laparotomy, was found to have a perforated gastric ulcer; subsequently underwent repair with a modified Jasvir patch. Patient was transferred back to the intensive care unit in critical condition. Currently, patient is being evaluated in the intensive care unit intubated to the mechanical ventilator. Most recent ABGs consistent with profound metabolic acidosis. PaO2 327, pCO2 45, pH of 7.12. He was given 3 A of sodium bicarbonate. Current ventilator settings include assist-control, r espiratory rate 16, tidal volume 450, FiO2 50%, and PEEP of 5. Chest x-ray, showing the tip of the endotracheal tube in a proximal position, approximately 9 cm above the prince. Nasogastric tube within the stomach. There is a left- sided pleural effusion. Dr. Crystal previously had the endotracheal tube advanced 3 cm. Patient is currently sedated on propofol which is infusing at 25 mcg/kg/min. He is synchronous with mechanical ventilator. Remains hypotensive, currently requiring vasopressors in the form of norepinephrine which is infusing at 0.1 mcg/kg/min. Postoperatively, the patient was fluid resuscitated with a total of 2 L crystalloid fluid. Lactated Ringer's also infusing at 125 mL/h. CVP is reading 8 mmHg. Patient has remained anuric. Heart rhythm appears atrial fibrillation with controlled ventricular response ranging from 80 to 90 bpm. Patient does have history of A-fib, not on any anticoagulation currently. Patient's abdominal incision has a wound VAC, and there is a compressed SANDY drain that is drained a total of 510 mL of serosanguineous output since surgery. Pat ient is currently covered on a combination of Zosyn, daptomycin, and Eraxis, which are being directed by infectious disease. Currently, hypothermic with external warming blanket on. Postoperative CBC: WBC count 31.8, hemoglobin 9.4, hematocrit 32.7, platelets 647. Postoperative BMP: Sodium 135, potassium 4.2, chloride 112, serum bicarb 12, BUN 53, creatinine 2.46, glucose 120. Overall, prognosis is guarded. Review of Systems ROS unobtainable: due to endotracheal tube Past Medical History Past Medical History: Coronary Artery Disease (CAD), Chest Pain / Angina, Hyperlipidemia, Hypertension, Myocardial Infarction (OR), Skin Disorder, Vascular Disorder Additional Past Medical History / Comment(s): AAA. Hx gout. Left and rt lower leg wounds, rt grt toe wound.- visiting nurse comes to house qod for dressing change . edema to left lower leg Last Myocardial Infarction Date:: 2010 History of Any Multi-Drug Resistant Organisms: MRSA, VRE Date of last positivie culture/infection: 10/03/23 MDRO Source:: RT LEG Past Surgical History: Heart Catheterization With Stent, Orthopedic Surgery Additional Past Surgical History / Comment(s): LT WRIST SX, UNSURE IF ANY METAL PLACED. Lt.ankle surgery, 11 screws. Stent x1. EXPLORATORY LAPAROTOMY, UNABLE TO REPAIR AAA, Stent to Abdominal Aortic Aneurysm 2022, Lt. fem-pop artery bypass w/ insitu greater saphenous vein graft 06/06/23, leg wound on left with debridement. Past Anesthesia/Blood Transfusion Reactions: Previous Problems w/ Anesthesia Additional Past Anesthesia/Blood Transfusion Reaction / Comment(s): "Takes a lot to put him out.". Pt. states he woke up once during surgery. Date of Last Stent Placement:: 2010 Past Psychological History: Anxiety Additional Psychological History / Comment(s): Anxiety w/ "hospital things". Smoking Status: Current every day smoker Past Alcohol Use History: Occasional Additional Past Alcohol Use History / Comment(s): Normally SMOKES couple ci garettes a day, started smoking age 24. DRINKING 2-3 LIQUOR DRINKS DAILY. Past Drug Use History: None Reported Additional Drug Use History / Comment(s): Uses marijuana daily, half a joint. Instructed to hold 24 hrs prior to procedure - Past Family History Father Family Medical History: Cancer Additional Family Medical History / Comment(s): AGE 72 [place] CA W/ METS Mother Family Medical History: Hypertension Medications and Allergies Home Medications Medication Instructions Recorded Confirmed Type Atorvastatin [Lipitor] 40 mg PO HS 07/27/23 10/29/23 History Furosemide [Lasix] 40 mg PO DAILY 07/27/23 10/29/23 History Metoprolol Succinate [Metoprolol 25 mg PO DAILY 07/27/23 10/29/23 History Succinate ER] Escitalopram [Lexapro] 10 mg PO DAILY #30 tab 08/28/23 10/29/23 Rx Potassium Chloride [Klor-Con 10 ER] 10 meq PO DAILY 09/29/23 10/29/23 History Allergies Allergy/AdvReac Type Severity Reaction Status Date / Time No Known Allergies Allergy Verified 10/29/23 19:28 Physical Exam Vitals: Vital Signs Temp Pulse Pulse Resp BP BP Pulse Ox 11/05/23 23:07 11/05/23 22:15 93 16 97 11/05/23 22:00 94 16 90/60 96 11/05/23 21:45 93 16 95 11/05/23 21:30 95 16 95 11/05/23 21:15 101 H 16 94 L 11/05/23 21:00 98 16 106/71 93 L 11/05/23 20:45 105 H 16 94 L 11/05/23 20:30 98 16 97 11/05/23 20:15 89 16 96 11/05/23 20:00 96.1 F L 104 H 16 100/54 97 11/05/23 19:45 100 16 96 11/05/23 19:30 89 16 97 11/05/23 19:17 11/05/23 19:15 112 H 16 99 11/05/23 19:00 101 H 16 125/74 99 11/05/23 18:50 106 H 16 125/74 98 11/05/23 18:40 109 H 16 125/74 97 11/05/23 18:30 109 H 16 125/74 98 11/05/23 18:20 109 H 16 110/85 99 11/05/23 18:10 113 H 16 118/55 100 11/05/23 18:08 11/05/23 18:00 108 H 16 129/64 100 11/05/23 17:50 112 H 16 109/70 100 11/05/23 17:40 97.5 F L 123 H 16 117/65 100 11/05/23 17:25 11/05/23 15:40 93 15 113/71 96 11/05/23 15:30 80 11 L 114/41 98 11/05/23 15:20 86 14 98/68 11/05/23 15:10 92 19 99/41 11/05/23 15:00 101 H 16 93/58 11/05/23 14:50 94 17 112/68 11/05/23 14:40 86 16 117/78 11/05/23 14:30 92.5 F L 88 19 104/80 99 11/05/23 14:05 115 H 86/54 11/05/23 14:02 100 72/52 99 11/05/23 13:56 107 H 82/71 100 11/05/23 13:50 56 L 66/36 11/05/23 13:46 69 89/63 11/05/23 13:43 48 L 76/50 99 11/05/23 13:18 52 L 100/37 96 11/05/23 07:25 84 19 11/05/23 07:11 19 118/81 11/05/23 04:21 84 16 105/69 94 L 11/05/23 01:30 97.5 F L 84 17 101/70 94 L FiO2 11/05/23 23:07 50 11/05/23 22:15 11/05/23 22:00 11/05/23 21:45 11/05/23 21:30 11/05/23 21:15 11/05/23 21:00 11/05/23 20:45 11/05/23 20:30 11/05/23 20:15 11/05/23 20:00 50 11/05/23 19:45 11/05/23 19:30 11/05/23 19:17 50 11/05/23 19:15 11/05/23 19:00 11/05/23 18:50 11/05/23 18:40 50 11/05/23 18:30 11/05/23 18:20 11/05/23 18:10 11/05/23 18:08 50 11/05/23 18:00 11/05/23 17:50 11/05/23 17:40 100 11/05/23 17:25 100 11/05/23 15:40 11/05/23 15:30 11/05/23 15:20 11/05/23 15:10 11/05/23 15:00 11/05/23 14:50 11/05/23 14:40 11/05/23 14:30 11/05/23 14:05 11/05/23 14:02 11/05/23 13:56 11/05/23 13:50 11/05/23 13:46 11/05/23 13:43 11/05/23 13:18 11/05/23 07:25 11/05/23 07:11 11/05/23 04:21 11/05/23 01:30 Intake and Output 11/05/23 11/05/23 11/06/23 14:59 22:59 06:59 Intake Total 3187.865 66.79 Output Total 535 Balance 2652.865 66.79 Intake: IV 3075 Anidulafungin 100 mg In 100 Sodium Chloride 0.9% 100 ml @ 84 mls/hr IVPB DAILY [facility] Rx#:[id number] Lactated Ringers 1,000 ml 375 @ 125 mls/hr IV .Q8H [facility] Rx#:[id number] Piperacillin-Tazobactam 3 100 .375 gm In Sodium Chloride 0.9% 100 ml @ 25 mls/hr IVPB Q8HR [facility] Rx# :[id number] Sodium Chloride 0.9% 2, 2000 000 ml @ 999 mls/hr IV . Q2H1M [facility] Rx#:[id number] Intake, IV Titration 112.865 66.79 Amount Norepinephrine 4 mg In 107.866 Sodium Chloride 0.9% 250 ml @ 0.03 MCG/KG/MIN 9. 851 mls/hr IV .Q24H [facility] Rx#:[id number] propofoL 1,000 mg In 4.999 66.79 Empty Bag 1 bag @ 15 MCG/ KG/MIN 7.757 mls/hr IV . [id number] [facility] Rx#:[id number] Output: Drainage 510 Right 510 Urine 0 Estimated Blood Loss 25 Other: Voiding Method Urinal Indwelling Catheter ABP, PAP, CO, CI - Last 8 Hours Arterial Blood Pressure 91/50 Arterial Blood Pressure 95/49 Arterial Blood Pressure 98/51 Arterial Blood Pressure 97/50 Arterial Blood Pressure 102/50 Arterial Blood Pressure 99/53 Arterial Blood Pressure 99/52 Arterial Blood Pressure 88/59 Arterial Blood Pressure 91/49 Arterial Blood Pressure 104/56 Arterial Blood Pressure 103/52 Arterial Blood Pressure 103/54 Arterial Blood Pressure 101/53 Arterial Blood Pressure 104/57 Arterial Blood Pressure 103/53 Arterial Blood Pressure 90/46 Arterial Blood Pressure 131/67 Arterial Blood Pressure 129/68 Arterial Blood Pressure 136/72 Arterial Blood Pressure 123/61 Arterial Blood Pressure 118/60 Arterial Blood Pressure 143/79 GENERAL EXAM: Sedated and intubated to the mechanical ventilator, synchronous mechanical ventilator, facial grimacing with deep painful stimuli, withdraws to pain in all 4 extremities HEAD: Normocephalic and atraumatic EYES: Normal reaction of pupils, equal size. NOSE: Clear with pink turbinates. THROAT: No erythema or exudates. NECK: No masses, no JVD. Right IJ central line catheter in place. CHEST: No chest wall deformity. LUNGS: Equal air entry with no crackles, wheeze, rhonchi or dullness. Intubated to mechanical ventilator, synchronous with current vent settings. Minimal endotracheal secretions. Peak pressures 28 CVS: S1 and S2 normal with no audible murmur, irregular rhythm. No extra heart sounds ABDOMEN: Midline abdominal incision with wound VAC, wound not approximated. SANDY drain compressed and draining serosanguineous output. Abdomen is soft, bowel sounds hypoactive, no appreciated organomegaly. SPINE: No scoliosis or deformity SKIN: Bilateral lower extremities wrapped in postoperative dressing/Abhijeet Kerlix wrap CENTRAL NERVOUS SYSTEM: Sedated on propofol, no focal deficits, withdraws to pain in all 4 extremities. EXTREMITIES: Bilateral lower extremities wrapped in Kerlix, distal pulses posterior tibial found with Doppler. Brachial arterial line in place with good arterial waveform. Bilateral radial pulses weak but palpable, capillary refill greater than 3 seconds. Results - Laboratory Findings CBC and BMP: 11/05/23 16:40 11/05/23 16:40 ABG ABG pH 7.12 (7.35-7.45) L* 11/05/23 17:54 ABG pCO2 45 mmHg (35-45) 11/05/23 17:54 ABG pO2 327 mmHg (83-108) H 11/05/23 17:54 ABG O2 Saturation 99.9 % (94-97) H 11/05/23 17:54 Abnormal lab findings: Abnormal Labs 10/29/23 10/29/23 10/29/23 18:03 18:03 18:03 WBC 16.3 H RBC 2.89 L Hgb 7.7 L D Hct 24.3 L MCH MCHC RDW 23.7 H Plt Count 517 H MPV Immature Gran # Neutrophils # 14.8 H Neutrophils # (Manual) Lymphocytes # 0.8 L Monocytes # Eosinophils # Anisocytosis (manual) Macrocytosis (manual) ABG pH ABG pO2 ABG HCO3 ABG Total CO2 ABG O2 Saturation Sodium 132 L Potassium 2.4 L* Chloride 110 H Carbon Dioxide 14 L Anion Gap BUN Creatinine 0.47 L BUN/Creatinine Ratio Glucose 58 L POC Glucose (mg/dL) Plasma Lactic Acid Ricco 2.7 H* Calcium 5.9 L* Magnesium AST 15 L ALT Alkaline Phosphatase 142 H C-Reactive Protein 12.6 H Total Protein 5.4 L Albumin 2.2 L Albumin/Globulin Ratio 10/29/23 10/29/23 10/30/23 20:33 21:52 06:04 WBC 19.67 H RBC 3.11 L Hgb 7.7 L Hct 25.8 L MCH 24.8 L MCHC 29.8 L RDW 25.1 H Plt Count 468 H MPV 9.2 L Immature Gran # 0.75 H Neutrophils # 17.25 H Neutrophils # (Manual) Lymphocytes # 0.62 L Monocytes # Eosinophils # 0.01 L Anisocytosis (manual) Macrocytosis (manual) 2+ A ABG pH ABG pO2 ABG HCO3 ABG Total CO2 ABG O2 Saturation Sodium Potassium Chloride Carbon Dioxide Anion Gap BUN Creatinine BUN/Creatinine Ratio Glucose POC Glucose (mg/dL) Plasma Lactic Acid Ricco 2.2 H* Calcium Magnesium 1.0 L AST ALT Alkaline Phosphatase C-Reactive Protein Total Protein Albumin Albumin/Globulin Ratio 10/30/23 10/31/23 10/31/23 06:04 06:10 06:10 WBC 15.1 H RBC 3.17 L Hgb 8.2 L Hct 26.9 L MCH MCHC 30.5 L RDW 23.2 H Plt Count 471 H MPV Immature Gran # Neutrophils # 13.7 H Neutrophils # (Manual) Lymphocytes # 0.6 L Monocytes # Eosinophils # Anisocytosis (manual) Macrocytosis (manual) ABG pH ABG pO2 ABG HCO3 ABG Total CO2 ABG O2 Saturation Sodium 129 L 127 L Potassium 3.3 L Chloride Carbon Dioxide 19.0 L 20 L Anion Gap 14.00 H BUN Creatinine 0.61 L BUN/Creatinine Ratio Glucose POC Glucose (mg/dL) Plasma Lactic Acid Ricco Calcium 7.9 L 8.1 L Magnesium 1.2 L AST ALT 6 L Alkaline Phosphatase 176 H C-Reactive Protein Total Protein 6.1 L Albumin 2.8 L Albumin/Globulin Ratio 0.85 L 11/01/23 11/01/23 11/02/23 05:37 05:37 08:39 WBC 20.06 H 17.3 H RBC 3.44 L 3.58 L Hgb 8.9 L 9.1 L Hct 29.4 L 31.2 L MCH 25.9 L MCHC 30.3 L 29.1 L RDW 25.5 H 23.2 H Plt Count 441 H 523 H MPV Immature Gran # 0.52 H Neutrophils # 17.63 H 16.0 H Neutrophils # (Manual) Lymphocytes # 0.70 L 0.5 L Monocytes # 1.11 H Eosinophils # 0.01 L Anisocytosis (manual) 3+ A Macrocytosis (manual) ABG pH ABG pO2 ABG HCO3 ABG Total CO2 ABG O2 Saturation Sodium 130 L Potassium Chloride Carbon Dioxide 18.5 L Anion Gap 12.50 H BUN Creatinine BUN/Creatinine Ratio 21.25 H Glucose 135 H POC Glucose (mg/dL) Plasma Lactic Acid Ricco Calcium 8.0 L Magnesium AST ALT Alkaline Phosphatase C-Reactive Protein Total Protein Albumin Albumin/Globulin Ratio 11/02/23 11/03/23 11/03/23 08:39 04:46 04:46 WBC 20.68 H RBC 3.42 L Hgb 8.7 L Hct 29.2 L MCH 25.4 L MCHC 29.8 L RDW 25.7 H Plt Count 484 H MPV Immature Gran # 0.39 H Neutrophils # 18.32 H Neutrophils # (Manual) Lymphocytes # Monocytes # Eosinophils # Anisocytosis (manual) Macrocytosis (manual) ABG pH ABG pO2 ABG HCO3 ABG Total CO2 ABG O2 Saturation Sodium 131 L 130 L Potassium Chloride Carbon Dioxide 17 L 16.8 L Anion Gap 13.20 H BUN 26 H 31.2 H Creatinine BUN/Creatinine Ratio 26.00 H Glucose POC Glucose (mg/dL) Plasma Lactic Acid Ricco Calcium 8.2 L Magnesium AST ALT Alkaline Phosphatase C-Reactive Protein Total Protein Albumin Albumin/Globulin Ratio 11/04/23 11/04/23 11/05/23 14:19 14:19 12:30 WBC 38.3 H RBC 4.12 L Hgb 10.6 L Hct 36.5 L MCH MCHC 29.0 L RDW 23.2 H Plt Count 801 H MPV Immature Gran # Neutrophils # 35.8 H Neutrophils # (Manual) Lymphocytes # Monocytes # 1.1 H Eosinophils # Anisocytosis (manual) Macrocytosis (manual) ABG pH ABG pO2 ABG HCO3 ABG Total CO2 ABG O2 Saturation Sodium 133 L Potassium Chloride Carbon Dioxide 14 L Anion Gap BUN 47 H Creatinine 1.66 H BUN/Creatinine Ratio Glucose 118 H POC Glucose (mg/dL) 136 H Plasma Lactic Acid Ricco Calcium Magnesium AST ALT Alkaline Phosphatase C-Reactive Protein Total Protein Albumin Albumin/Globulin Ratio 11/05/23 11/05/23 11/05/23 13:54 16:40 16:40 WBC 31.8 H RBC 3.70 L Hgb 9.4 L Hct 32.7 L MCH MCHC 28.9 L RDW 23.3 H Plt Count 647 H MPV Immature Gran # Neutrophils # Neutrophils # (Manual) 29.50 H Lymphocytes # Monocytes # Eosinophils # Anisocytosis (manual) Macrocytosis (manual) ABG pH ABG pO2 ABG HCO3 ABG Total CO2 ABG O2 Saturation Sodium 135 L Potassium Chloride 112 H Carbon Dioxide 12 L Anion Gap BUN 53 H Creatinine 2.46 H BUN/Creatinine Ratio Glucose 120 H POC Glucose (mg/dL) 119 H Plasma Lactic Acid Ricco Calcium 7.5 L Magnesium AST ALT Alkaline Phosphatase C-Reactive Protein Total Protein Albumin Albumin/Globulin Ratio 11/05/23 17:54 WBC RBC Hgb Hct MCH MCHC RDW Plt Count MPV Immature Gran # Neutrophils # Neutrophils # (Manual) Lymphocytes # Monocytes # Eosinophils # Anisocytosis (manual) Macrocytosis (manual) ABG pH 7.12 L* ABG pO2 327 H ABG HCO3 15 L ABG Total CO2 16 L ABG O2 Saturation 99.9 H Sodium Potassium Chloride Carbon Dioxide Anion Gap BUN Creatinine BUN/Creatinine Ratio Glucose POC Glucose (mg/dL) Plasma Lactic Acid Ricco Calcium Magnesium AST ALT Alkaline Phosphatase C-Reactive Protein Total Protein Albumin Albumin/Globulin Ratio - Diagnostic Findings Chest x-ray: image reviewed Assessment and Plan Assessment: Perforated gastric ulcer and pneumoperitoneum, status post exploratory laparotomy with gastric ulcer repair with modified Jasvir patch on 11/05/2023 Refractory hypotension and shock, currently requiring vasopressors in the form of norepinephrine Sepsis and septic shock Severe nonanion gap metabolic acidosis, received 3 amp sodium bicarb Bilateral lower extremity wounds/cellulitis, status-post debridement on 11/03/2023. Wounds positive for polymicrobial organisms including Pseudomonas aeruginosa, MRSA, Enterococcus faecalis. Antibiotics being directed by infectious disease specialist Peripheral vascular disease, with recent history of femoral popliteal artery bypass on 06/06/2023, subsequently, developing wound infection and dehiscence, undergoing multiple excisional debridements since then. Mechanical ventilator management, postoperative chest x-ray reviewed, endotracheal tube has been advanced 3 cm. Nasogastric tube within the stomach. Left-sided pleural effusion noted. Atrial fibrillation with controlled ventricular response Normocytic, normochromic anemia Acute leukocytosis Acute kidney injury secondary to hypotension and ATN History of hypertension History of hyperlipidemia History of coronary artery disease with previous stent placement History of AAA with previous endovascular repair History of alcoholism Chronic ongoing tobacco dependence Plan: Patient's medications, labs, imaging reviewed. Status postoperative day #1 following exploratory laparotomy and repair of gastric ulcer. Patient is recovering in the intensive care unit, in critical condition. Patient will remain intubated to mechanical ventilator overnight, not ready for weaning at this time. Endotracheal tube previously advanced 3 cm Will perform daily interruptions of sedation and assess readiness to wean Remains hypotensive requiring vasopressors in the form of norepinephrine. Central line access established CVP reading 8, will give patient additional 1 L fluid bolus. Continue with maintenance fluids. Currently anuric Wound cultures were positive, antibiotics being directed by infectious disease specialist Repeat blood cultures pending. Protonix IVP twice daily added. Cardiology added for management of A-fib. Currently n.p.o, may require parental nutrition. Patients condition is critical, and prognosis is guarded. We will continue to follow, and further recommendations are forthcoming. I have personally seen and examined the patient, performed the documentation and the assessment and plan as written. Number of minutes spent on the visit:20 d. Time with Patient: Greater than 30
[2023-11-06 04:49] LABS: Anisocytosis Marked; Basophils # (A) 0.1 k/uL (0-0.2); Basophils % (A) 0 %; Eosinophils % (A) 0 %; HCT 27.2 % (39.0-53.0); HGB 8.1 gm/dL (13.0-17.5); Hypochromasia Marked; Lymphocytes # (A) 0.6 k/uL (1.0-4.8); Lymphocytes % (A) 2 %; MCH 25.9 pg (25.0-35.0); MCHC 29.9 g/dL (31.0-37.0); MCV 86.7 fL (80.0-100.0); Macrocytosis Slight; Mean Platelet Volume 9.1; Microcytosis Slight; Monocytes # (A) 0.8 k/uL (0-1.0); Monocytes % (A) 3 %; Neutrophils # (A) 26.2 k/uL (1.3-7.7); Neutrophils % (A) 94 %; Platelet Count 623 k/uL (150-450); RBC 3.14 m/uL (4.30-5.90); RDW 24.4 % (11.5-15.5); WBC 27.8 k/uL (3.8-10.6)
[2023-11-06 05:21] LABS: African American GFR (CKD) 31 (>60 ml/min/1.73 sqM); Anion Gap 8 mmol/L; Blood Urea Nitrogen 54 mg/dL (9-20); Calcium 7.2 mg/dL (8.4-10.2); Carbon Dioxide 15 mmol/L (22-30); Chloride 114 mmol/L (98-107); Glucose 104 mg/dL (74-99); Non-African American GFR(CKD) 27 (>60 ml/min/1.73 sqM); Potassium 4.1 mmol/L (3.5-5.1); Sodium 137 mmol/L (137-145)
[2023-11-06 05:33] LABS: ABG Base Excess -7.7 mmol/L; ABG HCO3 18 mmol/L (21-25); ABG Oxygen Saturation 99.2 % (94-97); ABG PCO2 35 mmHg (35-45); ABG PH 7.31 (7.35-7.45); ABG PO2 142 mmHg (83-108); ABG TCO2 19 mmol/L (19-24)
[2023-11-06 05:36] LABS: Allen Test Performed? no
[2023-11-06 06:10] LABS: Glucose,Whole Blood 111 mg/dL (70-110)
--- NOTE | 2023-11-06 06:33 | XR ---
EXAMINATION TYPE: XR chest 1V portable DATE OF EXAM: 11/06/2023 COMPARISON: 11/05/2023 HISTORY: Tube placement Technique AP upright portable view the chest is obtained. Findings: The ET tube is 2.6 cm above the prince. There is an NG tube within the stomach. The right jugular joaquin tral venous catheter tip in the SVC/RA junction. No change in the left base opacity obscuring the hemidiaphragm and costophrenic angle most likely a m oderate pleural effusion. The right lung remains clear. There is no pneumothorax. The heart size normal for technique. The osse ous structures are intact. IMPRESSION: 1. ET tube now 2.6 cm above the prince. NG tube and right jugular central venous catheter unchanged. 2. Persistent moderate left pleural effusion. No interval change.
--- NOTE | 2023-11-06 08:33 | P.PN ---
Subjective Progress Note Date: 11/06/23 The patient is postoperative day 1 from exploratory laparotomy and repair of perforated gastric ulcer. The patient remains hypotensive with no urine output. The patient received 5 L of fluid overnight. Abdomen is soft. Incision is clean dry intact. Perforated gastric ulcer with sepsis. Patient will continue receive supportive care. His prognosis is poor. Objective - Vital Signs Vital signs: Vital Signs Temp 97.7 F 11/06/23 04:00 Pulse 84 11/06/23 07:00 Resp 16 11/06/23 07:00 BP 103/63 11/06/23 03:00 Pulse Ox 100 11/06/23 07:00 FiO2 50 11/06/23 04:00 Intake & Output 11/05/23 11/06/23 11/06/23 18:59 06:59 18:59 Intake Total 2522.785 3169.136 125 Output Total 225 550 0 Balance 2297.785 2619.136 125 Weight 93 kg Intake: IV 2500 2675 125 Anidulafungin 100 mg In 100 Sodium Chloride 0.9% 100 ml @ 84 mls/hr IVPB DAILY [facility] Rx#:[id number] Lactated Ringers 1,000 ml 1375 125 @ 125 mls/hr IV .Q8H [facility] Rx#:[id number] Piperacillin-Tazobactam 3 200 .375 gm In Sodium Chloride 0.9% 100 ml @ 25 mls/hr IVPB Q8HR [facility] Rx# :[id number] Sodium Chloride 0.9% 1, 1000 000 ml @ 999 mls/hr IV . Q1H1M ONE Rx#:[id number] Sodium Chloride 0.9% 2, 2000 000 ml @ 999 mls/hr IV . Q2H1M ONE Rx#:[id number] Intake, IV Titration 22.785 494.136 Amount Norepinephrine 4 mg In 17.786 336.855 Sodium Chloride 0.9% 250 ml @ 0.03 MCG/KG/MIN 9. 851 mls/hr IV .Q24H [facility] Rx#:[id number] propofoL 1,000 mg In 4.999 157.281 Empty Bag 1 bag @ 15 MCG/ KG/MIN 7.757 mls/hr IV . [id number] [facility] Rx#:[id number] Output: Drainage 200 550 Right 200 550 Urine 0 0 0 Estimated Blood Loss 25 Other: Voiding Method Indwelling Catheter Indwelling Catheter ABP, PAP, CO, CI - Last Documented Arterial Blood Pressure 101/49 - Labs CBC & Chem 7: 11/06/23 04:38 11/06/23 04:38 Labs: Abnormal Lab Results - Last 24 Hours (Table) 11/05/23 11/05/23 11/05/23 Range/Units 12:30 13:54 16:40 WBC 31.8 H (3.8-10.6) k/uL RBC 3.70 L (4.30-5.90) m/uL Hgb 9.4 L (13.0-17.5) gm/dL Hct 32.7 L (39.0-53.0) % MCHC 28.9 L (31.0-37.0) g/dL RDW 23.3 H (11.5-15.5) % Plt Count 647 H (150-450) k/uL Neutrophils # (1.3-7.7) k/uL Neutrophils # (Manual) 29.50 H (1.3-7.7) k/uL Lymphocytes # (1.0-4.8) k/uL ABG pH (7.35-7.45) ABG pO2 (83-108) mmHg ABG HCO3 (21-25) mmol/L ABG Total CO2 (19-24) mmol/L ABG O2 Saturation (94-97) % Sodium (137-145) mmol/L Chloride (98-107) mmol/L Carbon Dioxide (22-30) mmol/L BUN (9-20) mg/dL Creatinine (0.66-1.25) mg/dL Glucose (74-99) mg/dL POC Glucose (mg/dL) 136 H 119 H (70-110) mg/dL Calcium (8.4-10.2) mg/dL 11/05/23 11/05/23 11/06/23 Range/Units 16:40 17:54 00:48 WBC (3.8-10.6) k/uL RBC (4.30-5.90) m/uL Hgb (13.0-17.5) gm/dL Hct (39.0-53.0) % MCHC (31.0-37.0) g/dL RDW (11.5-15.5) % Plt Count (150-450) k/uL Neutrophils # (1.3-7.7) k/uL Neutrophils # (Manual) (1.3-7.7) k/uL Lymphocytes # (1.0-4.8) k/uL ABG pH 7.12 L* (7.35-7.45) ABG pO2 327 H (83-108) mmHg ABG HCO3 15 L (21-25) mmol/L ABG Total CO2 16 L (19-24) mmol/L ABG O2 Saturation 99.9 H (94-97) % Sodium 135 L (137-145) mmol/L Chloride 112 H (98-107) mmol/L Carbon Dioxide 12 L (22-30) mmol/L BUN 53 H (9-20) mg/dL Creatinine 2.46 H (0.66-1.25) mg/dL Glucose 120 H (74-99) mg/dL POC Glucose (mg/dL) 124 H (70-110) mg/dL Calcium 7.5 L (8.4-10.2) mg/dL 11/06/23 11/06/23 11/06/23 Range/Units 04:38 04:38 05:27 WBC 27.8 H (3.8-10.6) k/uL RBC 3.14 L (4.30-5.90) m/uL Hgb 8.1 L (13.0-17.5) gm/dL Hct 27.2 L (39.0-53.0) % MCHC 29.9 L (31.0-37.0) g/dL RDW 24.4 H (11.5-15.5) % Plt Count 623 H (150-450) k/uL Neutrophils # 26.2 H (1.3-7.7) k/uL Neutrophils # (Manual) (1.3-7.7) k/uL Lymphocytes # 0.6 L (1.0-4.8) k/uL ABG pH 7.31 L (7.35-7.45) ABG pO2 142 H (83-108) mmHg ABG HCO3 18 L (21-25) mmol/L ABG Total CO2 (19-24) mmol/L ABG O2 Saturation 99.2 H (94-97) % Sodium (137-145) mmol/L Chloride 114 H (98-107) mmol/L Carbon Dioxide 15 L (22-30) mmol/L BUN 54 H (9-20) mg/dL Creatinine 2.43 H (0.66-1.25) mg/dL Glucose 104 H (74-99) mg/dL POC Glucose (mg/dL) (70-110) mg/dL Calcium 7.2 L (8.4-10.2) mg/dL 11/06/23 Range/Units 06:08 WBC (3.8-10.6) k/uL RBC (4.30-5.90) m/uL Hgb (13.0-17.5) gm/dL Hct (39.0-53.0) % MCHC (31.0-37.0) g/dL RDW (11.5-15.5) % Plt Count (150-450) k/uL Neutrophils # (1.3-7.7) k/uL Neutrophils # (Manual) (1.3-7.7) k/uL Lymphocytes # (1.0-4.8) k/uL ABG pH (7.35-7.45) ABG pO2 (83-108) mmHg ABG HCO3 (21-25) mmol/L ABG Total CO2 (19-24) mmol/L ABG O2 Saturation (94-97) % Sodium (137-145) mmol/L Chloride (98-107) mmol/L Carbon Dioxide (22-30) mmol/L BUN (9-20) mg/dL Creatinine (0.66-1.25) mg/dL Glucose (74-99) mg/dL POC Glucose (mg/dL) 111 H (70-110) mg/dL Calcium (8.4-10.2) mg/dL Microbiology - Last 24 Hours (Table) 11/03/23 15:10 Gram Stain - Final Other - Other Wound Culture - Final Pseudomonas aeruginosa Methicillin resist S. aureus 11/03/23 15:15 Gram Stain - Preliminary Other - Other Wound Culture - Preliminary Pseudomonas aeruginosa Morganella morganii Enterococcus faecalis 11/03/23 15:15 Anaerobic Culture - Preliminary Other - Other 11/03/23 15:10 Anaerobic Culture - Preliminary Other - Other
[2023-11-06] MEDS: IPRATROPIUM-ALBUTEROL 3 ML NEB INHALATION SCH (08:43)
--- NOTE | 2023-11-06 09:35 | P.CRDCN ---
History of Present Illness History of present illness: HISTORY OF PRESENTING ILLNESS This is a pleasant 63-year-old with past medical history significant for bilateral lower extremity wounds status post right Babinski, PAD, fem-pop bypass, AAA, coronary artery disease, hyperlipidemia, hypertension, tobacco abuse. Patient currently intubated and sedated and history is supplied by chart. Patient had been to the emergency department approximately one week ago with lower extremity wounds and cellulitis. He had undergone debridement 11/02 as well as previous fem-pop bypass. Cultures have shown MRSA as well as pseudomonas. Yesterday patient had more abdominal pain and decreasing blood pressures and septic shock. CT abdomen and pelvis showed pneumoperitoneum and patient was taken for exploratory laparotomy and found to have perforated g astric ulcer with repair and currently open with wound VAC. Cardiology was consulted secondary to atrial fibrillation. Apparently patient does have a history of atrial fibrillation however EKG from 06/19/2023 showed sinus rhythm and PVCs. Apparently patient has not been on anticoagulation. Currently patient is in A. fib with controlled ventricular rates not on any oral medications secondary to being nothing by mouth and not on any AV eptros blocking agents. Normally at home he takes Toprol 25 mg daily. Currently he is on vasopressors with norepinephrine and intubated and sedated on ventilator. Blood work shows white blood cell count 27, hemoglobin 8.1, bicarb 15, creatinine 2.4. REVIEW OF SYSTEMS At the time of my exam: Unable to obtain secondary to intubation PHYSICAL EXAMINATION Vital signs reviewed. CONSTITUTIONAL: No apparent distress, intubated and sedated HEENT: Head is normocephalic. Pupils are equal, round. Sclerae anicteric. Mucous membranes of the mouth are moist. No JVD. No carotid bruit. CHEST EXAMINATION: Lungs are clear to auscultation. No chest wall tenderness is noted on palpation or with deep breathing. HEART EXAMINATION: Regular rate and rhythm. S1, S2 heard. No murmurs, gallops or rub. ABDOMEN: Soft, nontender. Positive bowel sounds. EXTREMITIES:no lower extremity edema, +wounds wrapped in LAURA wrap NEUROLOGIC EXAMINATION: Patient is intubated and sedated ASSESSMENT Persistent A. fib with controlled ventricular rates Septic shock Perforated gastric ulcer status post repair Cellulitis Anemia PAD AAA Acute kidney injury Tobacco abuse PLAN Patient with PAD, found BiPAP and nonhealing ulcers and has been treated for cellulitis with MRSA and Pseudomonas. Unfortunately has had decompensation and septic shock related to perforated gastric ulcer. His status post repair with open wound. No anticoagulation given anemia, open wound. Continue with current supportive care. If patient does become tachycardic likely consider amiodarone. Check 2-D echo. Attempt to obtain any office records. Further recommendations to follow. Past Medical History Past Medical History: Coronary Artery Disease (CAD), Chest Pain / Angina, Hyperlipidemia, Hypertension, Myocardial Infarction ([place]), Skin Disorder, Vascula r Disorder Additional Past Medical History / Comment(s): AAA. Hx gout. Left and rt lower leg wounds, rt grt toe wound.- visiting nurse comes to house qod for dressing change . edema to left lower leg Last Myocardial Infarction Date:: 2010 History of Any Multi-Drug Resistant Organisms: MRSA, VRE Date of last positivie culture/infection: 10/03/23 MDRO Source:: RT LEG Past Surgical History: Heart Catheterization With Stent, Orthopedic Surgery Additional Past Surgical History / Comment(s): LT WRIST SX, UNSURE IF ANY METAL PLACED. Lt.ankle surgery, 11 screws. Stent x1. EXPLORATORY LAPAROTOMY, UNABLE TO REPAIR AAA, Stent to Abdominal Aortic Aneurysm 2022, Lt. fem-pop artery bypass w/ insitu greater saphenous vein graft 06/06/23, leg wound on left with debridement. Past Anesthesia/Blood Transfusion Reactions: Previous Problems w/ Anesthesia Additional Past Anesthesia/Blood Transfusion Reaction / Comment(s): "Takes a lot to put him out.". Pt. states he woke up once during surgery. Date of Last Stent Placement:: 2010 Past Psychological History: Anxiety Additional Psychological History / Comment(s): Anxiety w/ "hospital things". Smoking Status: Current every day smoker Past Alcohol Use History: Occasional Additional Past Alcohol Use History / Comment(s): Normally SMOKES couple cigarettes a day, started smoking age 24. DRINKING 2-3 LIQUOR DRINKS DAILY. Past Drug Use History: None Reported Additional Drug Use History / Comment(s): Uses marijuana daily, half a joint. Instructed to hold 24 hrs prior to procedure - Past Family History Father Family Medical History: Cancer Additional Family Medical History / Comment(s): AGE 72 [place] CA W/ METS Mother Family Medical History: Hypertension Medications and Allergies Home Medications Medication Instructions Recorded Confirmed Type Atorvastatin [Lipitor] 40 mg PO HS 07/27/23 10/29/23 History Furosemide [Lasix] 40 mg PO DAILY 07/27/23 10/29/23 History Metoprolol Succinate [Metoprolol 25 mg PO DAILY 07/27/23 10/29/23 History Succinate ER] Escitalopram [Lexapro] 10 mg PO DAILY #30 tab 08/28/23 10/29/23 Rx Potassium Chloride [Klor-Con 10 ER] 10 meq PO DAILY 09/29/23 10/29/23 History Allergies Allergy/AdvReac Type Severity Reaction Status Date / Time No Known Allergies Allergy Verified 10/29/23 19:28 Physical Exam Vitals: Vital Signs Temp Pulse Pulse Resp BP BP Pulse Ox 11/06/23 08:52 99 11/06/23 08:44 87 11/06/23 08:37 11/06/23 08:36 11/06/23 07:00 84 16 100 11/06/23 06:45 84 16 100 11/06/23 06:30 86 16 100 11/06/23 06:15 88 16 100 11/06/23 06:00 90 16 100 11/06/23 05:45 87 16 100 11/06/23 05:30 87 16 100 11/06/23 05:15 98 16 100 11/06/23 05:00 87 16 100 11/06/23 04:45 95 16 100 11/06/23 04:30 89 16 100 11/06/23 04:15 89 16 100 11/06/23 04:00 97.7 F 101 H 16 100 11/06/23 03:45 87 16 100 11/06/23 03:30 89 16 100 11/06/23 03:27 11/06/23 03:15 93 16 100 11/06/23 03:00 88 16 103/63 100 11/06/23 02:45 88 16 100 11/06/23 02:30 16 99 11/06/23 02:15 98 16 100 11/06/23 02:00 77 22 102/54 100 11/06/23 01:45 98 16 100 11/06/23 01:30 89 16 100 11/06/23 01:15 89 16 100 11/06/23 01:00 82 16 102/57 100 11/06/23 00:45 80 16 100 11/06/23 00:30 77 16 100 11/06/23 00:15 79 16 100 09/02/24 00:00 96.5 F L 83 16 94/59 100 11/05/23 23:45 96 16 100 11/05/23 23:30 89 16 100 11/05/23 23:15 84 16 99 11/05/23 23:07 11/05/23 23:00 82 16 90/60 100 11/05/23 22:45 93 16 99 11/05/23 22:30 98 16 97 11/05/23 22:16 101 H 16 97 11/05/23 22:15 93 16 97 11/05/23 22:00 94 16 90/60 96 11/05/23 21:45 93 16 95 11/05/23 21:30 95 16 95 11/05/23 21:15 101 H 16 94 L 11/05/23 21:00 98 16 106/71 93 L 11/05/23 20:45 105 H 16 94 L 11/05/23 20:30 98 16 97 11/05/23 20:15 89 16 96 11/05/23 20:00 96.1 F L 104 H 16 100/54 97 11/05/23 19:45 100 16 96 11/05/23 19:30 89 16 97 11/05/23 19:17 11/05/23 19:15 112 H 16 99 11/05/23 19:00 101 H 16 125/74 99 11/05/23 18:50 106 H 16 125/74 98 11/05/23 18:40 109 H 16 125/74 97 11/05/23 18:30 109 H 16 125/74 98 11/05/23 18:20 109 H 16 110/85 99 11/05/23 18:10 113 H 16 118/55 100 11/05/23 18:08 11/05/23 18:00 108 H 16 129/64 100 11/05/23 17:50 112 H 16 109/70 100 11/05/23 17:40 97.5 F L 123 H 16 117/65 100 11/05/23 17:25 11/05/23 15:40 93 15 113/71 96 11/05/23 15:30 80 11 L 114/41 98 11/05/23 15:20 86 14 98/68 11/05/23 15:10 92 19 99/41 11/05/23 15:00 101 H 16 93/58 11/05/23 14:50 94 17 112/68 11/05/23 14:40 86 16 117/78 11/05/23 14:30 92.5 F L 88 19 104/80 99 11/05/23 14:05 115 H 86/54 11/05/23 14:02 100 72/52 99 11/05/23 13:56 107 H 82/71 100 11/05/23 13:50 56 L 66/36 11/05/23 13:46 69 89/63 11/05/23 13:43 48 L 76/50 99 11/05/23 13:18 52 L 100/37 96 FiO2 11/06/23 08:52 11/06/23 08:44 11/06/23 08:37 35 11/06/23 08:36 35 11/06/23 07:00 11/06/23 06:45 11/06/23 06:30 11/06/23 06:15 11/06/23 06:00 11/06/23 05:45 11/06/23 05:30 11/06/23 05:15 11/06/23 05:00 11/06/23 04:45 11/06/23 04:30 11/06/23 04:15 11/06/23 04:00 50 11/06/23 03:45 11/06/23 03:30 11/06/23 03:27 50 11/06/23 03:15 11/06/23 03:00 11/06/23 02:45 11/06/23 02:30 11/06/23 02:15 11/06/23 02:00 11/06/23 01:45 11/06/23 01:30 11/06/23 01:15 11/06/23 01:00 11/06/23 00:45 11/06/23 00:30 11/06/23 00:15 11/06/23 00:00 50 11/05/23 23:45 11/05/23 23:30 11/05/23 23:15 11/05/23 23:07 50 11/05/23 23:00 11/05/23 22:45 11/05/23 22:30 11/05/23 22:16 11/05/23 22:15 11/05/23 22:00 11/05/23 21:45 11/05/23 21:30 11/05/23 21:15 11/05/23 21:00 11/05/23 20:45 11/05/23 20:30 11/05/23 20:15 11/05/23 20:00 50 11/05/23 19:45 11/05/23 19:30 11/05/23 19:17 50 11/05/23 19:15 11/05/23 19:00 11/05/23 18:50 11/05/23 18:40 11/05/23 18:30 11/05/23 18:20 11/05/23 18:10 11/05/23 18:08 50 11/05/23 18:00 11/05/23 17:50 11/05/23 17:40 100 11/05/23 17:25 100 11/05/23 15:40 11/05/23 15:30 11/05/23 15:20 11/05/23 15:10 11/05/23 15:00 11/05/23 14:50 11/05/23 14:40 11/05/23 14:30 11/05/23 14:05 11/05/23 14:02 11/05/23 13:56 11/05/23 13:50 11/05/23 13:46 11/05/23 13:43 11/05/23 13:18 Intake and Output 11/05/23 11/06/23 11/06/23 22:59 06:59 14:59 Intake Total 3187.865 2504.056 125 Output Total 535 240 0 Balance 2652.865 2264.056 125 Intake: IV 3075 2100 125 Anidulafungin 100 mg In 100 Sodium Chloride 0.9% 100 ml @ 84 mls/hr IVPB DAILY [facility] Rx#:[id number] Lactated Ringers 1,000 ml 375 1000 125 @ 125 mls/hr IV .Q8H [facility] Rx#:[id number] Piperacillin-Tazobactam 3 100 100 .375 gm In Sodium Chloride 0.9% 100 ml @ 25 mls/hr IVPB Q8HR [facility] Rx# :[id number] Sodium Chloride 0.9% 1, 1000 000 ml @ 999 mls/hr IV . Q1H1M ONE Rx#:[id number] Sodium Chloride 0.9% 2, 2000 000 ml @ 999 mls/hr IV . Q2H1M ONE Rx#:[id number] Intake, IV Titration 112.865 404.056 Amount Norepinephrine 4 mg In 107.866 246.775 Sodium Chloride 0.9% 250 ml @ 0.03 MCG/KG/MIN 9. 851 mls/hr IV .Q24H [facility] Rx#:[id number] propofoL 1,000 mg In 4.999 157.281 Empty Bag 1 bag @ 15 MCG/ KG/MIN 7.757 mls/hr IV . [id number] [facility] Rx#:[id number] Output: Drainage 510 240 Right 510 240 Urine 0 0 0 Estimated Blood Loss 25 Other: Voiding Method Indwelling Catheter Indwelling Catheter Weight 93 kg ABP, PAP, CO, CI - Last 8 Hours Arterial Blood Pressure 101/49 Arterial Blood Pressure 98/47 Arterial Blood Pressure 100/49 Arterial Blood Pressure 99/50 Arterial Blood Pressure 103/54 Arterial Blood Pressure 101/49 Arterial Blood Pressure 104/51 Arterial Blood Pressure 103/54 Arterial Blood Pressure 101/49 Arterial Blood Pressure 101/50 Arterial Blood Pressure 99/50 Arterial Blood Pressure 102/51 Arterial Blood Pressure 111/52 Arterial Blood Pressure 102/52 Arterial Blood Pressure 110/49 Arterial Blood Pressure 110/53 Arterial Blood Pressure 103/52 Arterial Blood Pressure 101/51 Arterial Blood Pressure 103/53 Arterial Blood Pressure 95/49 Arterial Blood Pressure 100/52 Results 11/06/23 04:38 11/06/23 04:38 CBC 11/05/23 11/06/23 Range/Units 16:40 04:38 WBC 31.8 H 27.8 H (3.8-10.6) k/uL RBC 3.70 L 3.14 L (4.30-5.90) m/uL Hgb 9.4 L 8.1 L (13.0-17.5) gm/dL Hct 32.7 L 27.2 L (39.0-53.0) % Plt Count 647 H 623 H (150-450) k/uL Comprehensive Metabolic Panel 11/05/23 11/06/23 Range/Units 16:40 04:38 Sodium 135 L 137 (137-145) mmol/L Potassium 4.2 4.1 (3.5-5.1) mmol/L Chloride 112 H 114 H (98-107) mmol/L Carbon Dioxide 12 L 15 L (22-30) mmol/L BUN 53 H 54 H (9-20) mg/dL Creatinine 2.46 H 2.43 H (0.66-1.25) mg/dL Glucose 120 H 104 H (74-99) mg/dL Calcium 7.5 L 7.2 L (8.4-10.2) mg/dL Current Medications Generic Name Dose Route Start Last Admin Trade Name Freq PRN Reason Stop Dose Admin Albuterol/Ipratropium 3 ml 11/06/23 08:00 11/06/23 08:43 Ipratropium-Albuterol 3 Ml Neb INHALATION 3 ml RT-Q4H MISSY Administration Chlorhexidine Gluconate 15 ml 11/05/23 21:00 11/05/23 20:06 Chlorhexidine Gluconate 15 Ml Cup MUCOUS MEM 15 ml BID MISSY Administration Collagenase 1 applic 11/01/23 09:30 11/05/23 16:24 Collagenase 250 Unit/Gm Ointment 30 Gm Tube TOPICAL Not Given DAILY MISSY Protocol Hydromorphone HCl 0.5 mg 10/29/23 19:53 11/06/23 04:10 Hydromorphone 0.5 Mg/0.5 Ml Syringe IVP 0.5 mg Q3HR PRN Administration Moderate Pain (Scale 4 to 6) Piperacillin Sod/Tazobactam 100 mls @ 25 mls/hr 11/01/23 16:00 11/06/23 00:43 Sod 3.375 gm/ Sodium Chloride IVPB 25 mls/hr Q8HR MISSY Administration Protocol Daptomycin 500 mg/ Sodium 50 mls @ 100 mls/hr 11/01/23 13:00 11/05/23 10:45 Chloride IVPB 100 mls/hr Q24HR MISSY Administration Protocol Norepinephrine Bitartrate 4 mg 254 mls @ 9.851 mls/hr 11/05/23 14:15 11/06/23 04:32 / Sodium Chloride IV 0.13 mcg/kg/min .Q24H MISSY 42.686 mls/hr Titration Protocol 0.03 MCG/KG/MIN Anidulafungin 100 mg/ Sodium 100 mls @ 84 mls/hr 11/06/23 09:00 Chloride IVPB DAILY MISSY Protocol Lactated Ringer's 1,000 mls @ 125 mls/hr 11/05/23 15:00 11/06/23 00:01 Lactated Ringers IV 125 mls/hr .Q8H MISSY Administration Propofol 1,000 mg/ IV Solution 100 mls @ 7.757 mls/hr 11/05/23 17:30 11/06/23 06:00 IV 30 mcg/kg/min .[id number] MISSY 15.513 mls/hr Administration Protocol 15 MCG/KG/MIN Morphine Sulfate 4 mg 10/29/23 19:53 11/05/23 12:07 Morphine Sulfate 4 Mg/Ml Syringe IV 4 mg Q4HR PRN Administration Severe Pain (Scale 7 to 10) Naloxone HCl 0.2 mg 10/29/23 19:53 Naloxone 0.4 Mg/Ml 1 Ml Vial IV Q2M PRN Opioid Reversal Ondansetron HCl 4 mg 10/31/23 10:30 11/05/23 08:56 Ondansetron 4 Mg/2 Ml Vial IVP 4 mg Q6HR PRN Administration Nausea And Vomiting Pantoprazole Sodium 40 mg 11/06/23 09:00 Pantoprazole 40 Mg/10 Ml Vial IVP BID MISSY Potassium Chloride 10 meq 10/30/23 09:00 11/05/23 10:31 Potassium Chloride Er 10 Meq Tab.Er.Prt PO 10 meq DAILY MISSY Administration Intake and Output 11/05/23 11/06/23 11/06/23 22:59 06:59 14:59 Intake Total 3187.865 2504.056 125 Output Total 535 240 0 Balance 2652.865 2264.056 125 Intake: IV 3075 2100 125 Anidulafungin 100 mg In 100 Sodium Chloride 0.9% 100 ml @ 84 mls/hr IVPB DAILY [facility] Rx#:[id number] Lactated Ringers 1,000 ml 375 1000 125 @ 125 mls/hr IV .Q8H [facility] Rx#:[id number] Piperacillin-Tazobactam 3 100 100 .375 gm In Sodium Chloride 0.9% 100 ml @ 25 mls/hr IVPB Q8HR [facility] Rx# :[id number] Sodium Chloride 0.9% 1, 1000 000 ml @ 999 mls/hr IV . Q1H1M ONE Rx#:[id number] Sodium Chloride 0.9% 2, 2000 000 ml @ 999 mls/hr IV . Q2H1M ONE Rx#:[id number] Intake, IV Titration 112.865 404.056 Amount Norepinephrine 4 mg In 107.866 246.775 Sodium Chloride 0.9% 250 ml @ 0.03 MCG/KG/MIN 9. 851 mls/hr IV .Q24H [facility] Rx#:[id number] propofoL 1,000 mg In 4.999 157.281 Empty Bag 1 bag @ 15 MCG/ KG/MIN 7.757 mls/hr IV . [id number] [facility] Rx#:[id number] Output: Drainage 510 240 Right 510 240 Urine 0 0 0 Estimated Blood Loss 25 Other: Voiding Method Indwelling Catheter Indwelling Catheter Weight 93 kg 11/06/23 04:38 11/06/23 04:38
[2023-11-06] MEDS: LACTATED RINGERS 1,000 ML IV ONE (09:51)
[2023-11-06] MEDS: PANTOPRAZOLE 40 MG/10 ML VIAL IVP SCH (09:52)
[2023-11-06] MEDS: ANIDULAFUNGIN 100 MG in SODIUM CHLORIDE 0.9% 100 ML IVPB SCH (09:57)
--- NOTE | 2023-11-06 11:29 | P.NPCON ---
History of Present Illness - Reason for Consult acute renal failure - History of Present Illness Patient is a 63-year-old male with history of chronic bilateral lower extremity wounds and peripheral vascular disease. He is admitted to the hospital with worsening lower extremity wounds. Patient has had a fever and he has been hypotensive. CT of the abdomen showed pneumoperitoneum and patient was noted to have a perforated gastric ulcer, status post explorative laparotomy and repair of perforated gastric ulcer on 11/05/2023. Currently maintained on Levophed. Patient has not had any urine output since yesterday. No renal abnormalities noted on CT of the abdomen. Isaac catheter has been flushed. Patient received a few doses of vancomycin initially but is maintained on daptomycin currently. Levophed dose has not been increased. Patient is currently on the vent. FiO2 is at 35%. Serum creatinine was 0.4 on initial admission and has increased to 2.4 today. Review of Systems As per HPI Past Medical History Past Medical History: Coronary Artery Disease (CAD), Chest Pain / Angina, Hyperlipidemia, Hypertension, Myocardial Infarction (OK), Skin Disorder, Vascular Disorder Additional Past Medical History / Comment(s): AAA. Hx gout. Left and rt lower leg wounds, rt grt toe wound.- visiting nurse comes to house qod for dressing change . edema to left lower leg Last Myocardial Infarction Date:: 2010 History of Any Multi-Drug Resistant Organisms: MRSA, VRE Date of last positivie culture/infection: 10/03/23 MDRO Source:: RT LEG Past Surgical History: Heart Catheterization With Stent, Orthopedic Surgery Additional Past Surgical History / Comment(s): LT WRIST SX, UNSURE IF ANY METAL PLACED. Lt.ankle surgery, 11 screws. Stent x1. EXPLORATORY LAPAROTOMY, UNABLE TO REPAIR AAA, Stent to Abdominal Aortic Aneurysm 2022, Lt. fem-pop artery bypass w/ insitu greater saphenous vein graft 06/06/23, leg wound on left with debridement. Past Anesthesia/Blood Transfusion Reactions: Previous Problems w/ Anesthesia Additional Past Anesthesia/Blood Transfusion Reaction / Comment(s): "Takes a lot to put him out.". Pt. states he woke up once during surgery. Date of Last Stent Placement:: 2010 Past Psychological History: Anxiety Additional Psychological History / Comment(s): Anxiety w/ "hospital things". Smoking Status: Current every day smoker Past Alcohol Use History: Occasional Additional Past Alcohol Use History / Comment(s): Normally SMOKES couple cigarettes a day, started smoking age 24. DRINKING 2-3 LIQUOR DRINKS DAILY. Past Drug Use History: None Reported Additional Drug Use History / Comment(s): Uses marijuana daily, half a joint. Instructed to hold 24 hrs prior to procedure - Past Family History Father Family Medical History: Cancer Additional Family Medical History / Comment(s): AGE 72 [place] CA W/ METS Mother Family Medical History: Hypertension Medications and Allergies Home Medications Medication Instructions Recorded Confirmed Type Atorvastatin [Lipitor] 40 mg PO HS 07/27/23 10/29/23 History Furosemide [Lasix] 40 mg PO DAILY 07/27/23 10/29/23 History Metoprolol Succinate [Metoprolol 25 mg PO DAILY 07/27/23 10/29/23 History Succinate ER] Escitalopram [Lexapro] 10 mg PO DAILY #30 tab 08/28/23 10/29/23 Rx Potassium Chloride [Klor-Con 10 ER] 10 meq PO DAILY 09/29/23 10/29/23 History Allergies Allergy/AdvReac Type Severity Reaction Status Date / Time No Known Allergies Allergy Verified 10/29/23 19:28 Physical Exam Vitals: Vital Signs Temp Pulse Pulse Resp BP BP Pulse Ox 11/06/23 10:30 96 22 100 11/06/23 10:15 100 16 100 11/06/23 10:00 98 22 100 11/06/23 09:45 100 18 100 11/06/23 09:30 102 H 16 100 11/06/23 09:15 96 20 100 11/06/23 09:00 89 16 100 11/06/23 08:52 99 11/06/23 08:45 85 16 100 11/06/23 08:44 87 11/06/23 08:37 11/06/23 08:36 11/06/23 08:30 90 22 100 11/06/23 08:15 85 18 100 11/06/23 08:00 98.7 F 86 16 100 11/06/23 07:45 85 16 100 11/06/23 07:30 90 16 100 11/06/23 07:15 87 16 100 11/06/23 07:00 84 16 100 11/06/23 06:45 84 16 100 11/06/23 06:30 86 16 100 11/06/23 06:15 88 16 100 11/06/23 06:00 90 16 100 11/06/23 05:45 87 16 100 11/06/23 05:30 87 16 100 11/06/23 05:15 98 16 100 11/06/23 05:00 87 16 100 11/06/23 04:45 95 16 100 11/06/23 04:30 89 16 100 11/06/23 04:15 89 16 100 11/06/23 04:00 97.7 F 101 H 16 100 11/06/23 03:45 87 16 100 11/06/23 03:30 89 16 100 11/06/23 03:27 11/06/23 03:15 93 16 100 11/06/23 03:00 88 16 103/63 100 11/06/23 02:45 88 16 100 11/06/23 02:30 16 99 11/06/23 02:15 98 16 100 11/06/23 02:00 77 22 102/54 100 11/06/23 01:45 98 16 100 11/06/23 01:30 89 16 100 11/06/23 01:15 89 16 100 11/06/23 01:00 82 16 102/57 100 11/06/23 00:45 80 16 100 11/06/23 00:30 77 16 100 11/06/23 00:15 79 16 100 11/06/23 00:00 96.5 F L 83 16 94/59 100 11/05/23 23:45 96 16 100 11/05/23 23:30 89 16 100 11/05/23 23:15 84 16 99 11/05/23 23:07 11/05/23 23:00 82 16 90/60 100 11/05/23 22:45 93 16 99 11/05/23 22:30 98 16 97 11/05/23 22:16 101 H 16 97 11/05/23 22:15 93 16 97 11/05/23 22:00 94 16 90/60 96 11/05/23 21:45 93 16 95 11/05/23 21:30 95 16 95 11/05/23 21:15 101 H 16 94 L 11/05/23 21:00 98 16 106/71 93 L 11/05/23 20:45 105 H 16 94 L 11/05/23 20:30 98 16 97 11/05/23 20:15 89 16 96 11/05/23 20:00 96.1 F L 104 H 16 100/54 97 11/05/23 19:45 100 16 96 11/05/23 19:30 89 16 97 11/05/23 19:17 11/05/23 19:15 112 H 16 99 11/05/23 19:00 101 H 16 125/74 99 11/05/23 18:50 106 H 16 125/74 98 11/05/23 18:40 109 H 16 125/74 97 11/05/23 18:30 109 H 16 125/74 98 11/05/23 18:20 109 H 16 110/85 99 11/05/23 18:10 113 H 16 118/55 100 11/05/23 18:08 11/05/23 18:00 108 H 16 129/64 100 11/05/23 17:50 112 H 16 109/70 100 11/05/23 17:40 97.5 F L 123 H 16 117/65 100 11/05/23 17:25 11/05/23 15:40 93 15 113/71 96 11/05/23 15:30 80 11 L 114/41 98 11/05/23 15:20 86 14 98/68 11/05/23 15:10 92 19 99/41 11/05/23 15:00 101 H 16 93/58 11/05/23 14:50 94 17 112/68 11/05/23 14:40 86 16 117/78 11/05/23 14:30 92.5 F L 88 19 104/80 99 11/05/23 14:05 115 H 86/54 11/05/23 14:02 100 72/52 99 11/05/23 13:56 107 H 82/71 100 11/05/23 13:50 56 L 66/36 11/05/23 13:46 69 89/63 11/05/23 13:43 48 L 76/50 99 11/05/23 13:18 52 L 100/37 96 FiO2 11/06/23 10:30 11/06/23 10:15 11/06/23 10:00 11/06/23 09:45 11/06/23 09:30 11/06/23 09:15 11/06/23 09:00 11/06/23 08:52 11/06/23 08:45 11/06/23 08:44 11/06/23 08:37 35 11/06/23 08:36 35 11/06/23 08:30 11/06/23 08:15 11/06/23 08:00 50 11/06/23 07:45 11/06/23 07:30 11/06/23 07:15 11/06/23 07:00 11/06/23 06:45 11/06/23 06:30 11/06/23 06:15 11/06/23 06:00 11/06/23 05:45 11/06/23 05:30 11/06/23 05:15 11/06/23 05:00 11/06/23 04:45 11/06/23 04:30 11/06/23 04:15 11/06/23 04:00 50 11/06/23 03:45 11/06/23 03:30 11/06/23 03:27 50 11/06/23 03:15 11/06/23 03:00 11/06/23 02:45 11/06/23 02:30 11/06/23 02:15 11/06/23 02:00 11/06/23 01:45 11/06/23 01:30 11/06/23 01:15 11/06/23 01:00 11/06/23 00:45 11/06/23 00:30 11/06/23 00:15 11/06/23 00:00 50 11/05/23 23:45 11/05/23 23:30 11/05/23 23:15 11/05/23 23:07 50 11/05/23 23:00 11/05/23 22:45 11/05/23 22:30 11/05/23 22:16 11/05/23 22:15 11/05/23 22:00 11/05/23 21:45 11/05/23 21:30 11/05/23 21:15 11/05/23 21:00 11/05/23 20:45 11/05/23 20:30 11/05/23 20:15 11/05/23 20:00 50 11/05/23 19:45 11/05/23 19:30 11/05/23 19:17 50 11/05/23 19:15 11/05/23 19:00 11/05/23 18:50 11/05/23 18:40 11/05/23 18:30 11/05/23 18:20 11/05/23 18:10 11/05/23 18:08 50 11/05/23 18:00 11/05/23 17:50 11/05/23 17:40 100 11/05/23 17:25 100 11/05/23 15:40 11/05/23 15:30 11/05/23 15:20 11/05/23 15:10 11/05/23 15:00 11/05/23 14:50 11/05/23 14:40 11/05/23 14:30 11/05/23 14:05 11/05/23 14:02 11/05/23 13:56 11/05/23 13:50 11/05/23 13:46 11/05/23 13:43 11/05/23 13:18 Intake and Output 11/05/23 11/06/23 11/06/23 22:59 06:59 14:59 Intake Total 3187.865 2504.056 1650 Output Total 535 240 0 Balance 2652.865 2264.056 1650 Intake: IV 3075 2100 1650 Anidulafungin 100 mg In 100 Sodium Chloride 0.9% 100 ml @ 84 mls/hr IVPB DAILY [facility] Rx#:[id number] Anidulafungin 200 mg In 100 Sodium Chloride 0.9% 200 ml @ 84 mls/hr IVPB ONCE ONE Rx#:[id number] Lactated Ringers 1,000 ml 375 1000 500 @ 125 mls/hr IV .Q8H [facility] Rx#:[id number] Lactated Ringers 1,000 ml 1000 @ 999 mls/hr IV .Q1H1M ONE Rx#:[id number] Piperacillin-Tazobactam 3 100 100 50 .375 gm In Sodium Chloride 0.9% 100 ml @ 25 mls/hr IVPB Q8HR [facility] Rx# :[id number] Sodium Chloride 0.9% 1, 1000 000 ml @ 999 mls/hr IV . Q1H1M ONE Rx#:[id number] Sodium Chloride 0.9% 2, 2000 000 ml @ 999 mls/hr IV . Q2H1M ONE Rx#:[id number] Intake, IV Titration 112.865 404.056 Amount Norepinephrine 4 mg In 107.866 246.775 Sodium Chloride 0.9% 250 ml @ 0.03 MCG/KG/MIN 9. 851 mls/hr IV .Q24H [facility] Rx#:[id number] propofoL 1,000 mg In 4.999 157.281 Empty Bag 1 bag @ 15 MCG/ KG/MIN 7.757 mls/hr IV . [id number] [facility] Rx#:[id number] Output: Drainage 510 240 Right 510 240 Urine 0 0 0 Estimated Blood Loss 25 Other: Voiding Method Indwelling Catheter Indwelling Catheter Weight 93 kg ABP, PAP, CO, CI - Last 8 Hours Arterial Blood Pressure 113/51 Arterial Blood Pressure 105/47 Arterial Blood Pressure 105/49 Arterial Blood Pressure 102/48 Arterial Blood Pressure 104/51 Arterial Blood Pressure 91/50 Arterial Blood Pressure 100/50 Arterial Blood Pressure 106/51 Arterial Blood Pressure 100/50 Arterial Blood Pressure 102/50 Arterial Blood Pressure 91/44 Arterial Blood Pressure 97/46 Arterial Blood Pressure 101/53 Arterial Blood Pressure 101/50 Arterial Blood Pressure 101/49 Arterial Blood Pressure 98/47 Arterial Blood Pressure 100/49 Arterial Blood Pressure 99/50 Arterial Blood Pressure 103/54 Arterial Blood Pressure 101/49 Arterial Blood Pressure 104/51 Arterial Blood Pressure 103/54 Arterial Blood Pressure 101/49 Arterial Blood Pressure 101/50 Arterial Blood Pressure 99/50 Arterial Blood Pressure 102/51 Arterial Blood Pressure 111/52 Arterial Blood Pressure 102/52 Arterial Blood Pressure 110/49 Patient is sedated. Currently on the vent. FiO2 35%. Examination of the heart S1 and S2 Examination of the lungs bilateral breath sounds are heard Abdomen is dressed Bilateral lower extremities are wrapped. Results - Lab Results Most recent lab results ABG pH 7.31 (7.35-7.45) L 11/06/23 05:27 ABG pCO2 35 mmHg (35-45) 11/06/23 05:27 ABG pO2 142 mmHg (83-108) H 11/06/23 05:27 ABG HCO3 18 mmol/L (21-25) L 11/06/23 05:27 ABG O2 Saturation 99.2 % (94-97) H 11/06/23 05:27 Calcium 7.2 mg/dL (8.4-10.2) L 11/06/23 04:38 Magnesium 1.8 mg/dL (1.6-2.3) 11/02/23 08:39 11/06/23 04:38 11/06/23 04:38 Assessment and Plan Assessment: 1. Acute kidney injury, ATN, oliguric secondary to hypotension and sepsis. Vancomycin noted upon initial admission however currently patient is maintained on daptomycin. He has received multiple fluid boluses. UA will be ordered. No evidence of obstruction on CT of the abdomen. 2. Nongap metabolic acidosis secondary to acute kidney injury 3. Sepsis with septic shock from perforated viscus and bilateral lower extremity wounds. 4. Bilateral lower extremity wounds with wound cultures growing MRSA, Pseudomonas and Enterococcus faecalis. Patient is being followed by ID. 5. Acute hypoxic respiratory failure maintained on the vent Plan: Check UA Check CK level Change IV fluids to IV bicarb Continue with IV hydration IV Lasix x 1 Continue to avoid nephrotoxic agents. Continue current antibiotics. We will continue to monitor the patient closely for need for renal replacement therapy. No indication for dialysis today. Thank you for the consultation. Will continue to follow the patient with you during his hospitalization
[2023-11-06] MEDS: DEXTROSE 5% IN WATER 1,000 ML with SODIUM BICARB (1 MEQ/ML) 150 ML IV SCH (12:29)
[2023-11-06 12:46] LABS: Glucose,Whole Blood 112 mg/dL (70-110)
--- NOTE | 2023-11-06 13:42 | P.PN ---
Subjective Progress Note Date: 11/06/23 Patient seen and examined. Previous events noted, perforated gastric ulcer status post repair yesterday. Remains on vent Objective - Vital Signs Vital signs: Vital Signs Temp 98.6 F 11/06/23 12:00 Pulse 92 11/06/23 12:45 Resp 24 11/06/23 12:45 BP 103/63 11/06/23 03:00 Pulse Ox 100 11/06/23 12:45 FiO2 35 11/06/23 12:33 Intake & Output 11/05/23 11/06/23 11/06/23 18:59 06:59 18:59 Intake Total 2522.785 3169.136 1803.359 Output Total 225 550 0 Balance 2297.785 2619.136 1803.359 Weight 93 kg Intake: IV 2500 2675 1650 Anidulafungin 100 mg In 100 Sodium Chloride 0.9% 100 ml @ 84 mls/hr IVPB DAILY [facility] Rx#:[id number] Anidulafungin 200 mg In 100 Sodium Chloride 0.9% 200 ml @ 84 mls/hr IVPB ONCE ONE Rx#:[id number] Lactated Ringers 1,000 ml 1375 500 @ 125 mls/hr IV .Q8H [facility] Rx#:[id number] Lactated Ringers 1,000 ml 1000 @ 999 mls/hr IV .Q1H1M ONE Rx#:[id number] Piperacillin-Tazobactam 3 200 50 .375 gm In Sodium Chloride 0.9% 100 ml @ 25 mls/hr IVPB Q8HR [facility] Rx# :[id number] Sodium Chloride 0.9% 1, 1000 000 ml @ 999 mls/hr IV . Q1H1M ONE Rx#:[id number] Sodium Chloride 0.9% 2, 2000 000 ml @ 999 mls/hr IV . Q2H1M ONE Rx#:[id number] Intake, IV Titration 22.785 494.136 153.359 Amount Norepinephrine 4 mg In 17.786 336.855 153.359 Sodium Chloride 0.9% 250 ml @ 0.03 MCG/KG/MIN 9. 851 mls/hr IV .Q24H [facility] Rx#:[id number] propofoL 1,000 mg In 4.999 157.281 Empty Bag 1 bag @ 15 MCG/ KG/MIN 7.757 mls/hr IV . [id number] [facility] Rx#:[id number] Output: Drainage 200 550 Right 200 550 Urine 0 0 0 Estimated Blood Loss 25 Other: Voiding Method Indwelling Catheter Indwelling Catheter Indwelling Catheter ABP, PAP, CO, CI - Last Documented Arterial Blood Pressure 115/57 - Exam On vent, coarse breath sounds. No apparent distress. Abdominal incision noted. Bilateral lower extremity dressing clean, dry at this time. - Labs CBC & Chem 7: 11/06/23 04:38 11/06/23 04:38 Labs: Abnormal Lab Results - Last 24 Hours (Table) 11/05/23 11/05/23 11/05/23 Range/Units 13:54 16:40 16:40 WBC 31.8 H (3.8-10.6) k/uL RBC 3.70 L (4.30-5.90) m/uL Hgb 9.4 L (13.0-17.5) gm/dL Hct 32.7 L (39.0-53.0) % MCHC 28.9 L (31.0-37.0) g/dL RDW 23.3 H (11.5-15.5) % Plt Count 647 H (150-450) k/uL Neutrophils # (1.3-7.7) k/uL Neutrophils # (Manual) 29.50 H (1.3-7.7) k/uL Lymphocytes # (1.0-4.8) k/uL ABG pH (7.35-7.45) ABG pO2 (83-108) mmHg ABG HCO3 (21-25) mmol/L ABG Total CO2 (19-24) mmol/L ABG O2 Saturation (94-97) % Sodium 135 L (137-145) mmol/L Chloride 112 H (98-107) mmol/L Carbon Dioxide 12 L (22-30) mmol/L BUN 53 H (9-20) mg/dL Creatinine 2.46 H (0.66-1.25) mg/dL Glucose 120 H (74-99) mg/dL POC Glucose (mg/dL) 119 H (70-110) mg/dL Calcium 7.5 L (8.4-10.2) mg/dL Creatine Kinase (55-170) U/L 11/05/23 11/06/23 11/06/23 Range/Units 17:54 00:48 04:38 WBC 27.8 H (3.8-10.6) k/uL RBC 3.14 L (4.30-5.90) m/uL Hgb 8.1 L (13.0-17.5) gm/dL Hct 27.2 L (39.0-53.0) % MCHC 29.9 L (31.0-37.0) g/dL RDW 24.4 H (11.5-15.5) % Plt Count 623 H (150-450) k/uL Neutrophils # 26.2 H (1.3-7.7) k/uL Neutrophils # (Manual) (1.3-7.7) k/uL Lymphocytes # 0.6 L (1.0-4.8) k/uL ABG pH 7.12 L* (7.35-7.45) ABG pO2 327 H (83-108) mmHg ABG HCO3 15 L (21-25) mmol/L ABG Total CO2 16 L (19-24) mmol/L ABG O2 Saturation 99.9 H (94-97) % Sodium (137-145) mmol/L Chloride (98-107) mmol/L Carbon Dioxide (22-30) mmol/L BUN (9-20) mg/dL Creatinine (0.66-1.25) mg/dL Glucose (74-99) mg/dL POC Glucose (mg/dL) 124 H (70-110) mg/dL Calcium (8.4-10.2) mg/dL Creatine Kinase (55-170) U/L 11/06/23 11/06/23 11/06/23 Range/Units 04:38 05:27 06:08 WBC (3.8-10.6) k/uL RBC (4.30-5.90) m/uL Hgb (13.0-17.5) gm/dL Hct (39.0-53.0) % MCHC (31.0-37.0) g/dL RDW (11.5-15.5) % Plt Count (150-450) k/uL Neutrophils # (1.3-7.7) k/uL Neutrophils # (Manual) (1.3-7.7) k/uL Lymphocytes # (1.0-4.8) k/uL ABG pH 7.31 L (7.35-7.45) ABG pO2 142 H (83-108) mmHg ABG HCO3 18 L (21-25) mmol/L ABG Total CO2 (19-24) mmol/L ABG O2 Saturation 99.2 H (94-97) % Sodium (137-145) mmol/L Chloride 114 H (98-107) mmol/L Carbon Dioxide 15 L (22-30) mmol/L BUN 54 H (9-20) mg/dL Creatinine 2.43 H (0.66-1.25) mg/dL Glucose 104 H (74-99) mg/dL POC Glucose (mg/dL) 111 H (70-110) mg/dL Calcium 7.2 L (8.4-10.2) mg/dL Creatine Kinase (55-170) U/L 11/06/23 11/06/23 Range/Units 12:04 12:44 WBC (3.8-10.6) k/uL RBC (4.30-5.90) m/uL Hgb (13.0-17.5) gm/dL Hct (39.0-53.0) % MCHC (31.0-37.0) g/dL RDW (11.5-15.5) % Plt Count (150-450) k/uL Neutrophils # (1.3-7.7) k/uL Neutrophils # (Manual) (1.3-7.7) k/uL Lymphocytes # (1.0-4.8) k/uL ABG pH (7.35-7.45) ABG pO2 (83-108) mmHg ABG HCO3 (21-25) mmol/L ABG Total CO2 (19-24) mmol/L ABG O2 Saturation (94-97) % Sodium (137-145) mmol/L Chloride (98-107) mmol/L Carbon Dioxide (22-30) mmol/L BUN (9-20) mg/dL Creatinine (0.66-1.25) mg/dL Glucose (74-99) mg/dL POC Glucose (mg/dL) 112 H (70-110) mg/dL Calcium (8.4-10.2) mg/dL Creatine Kinase 43 L (55-170) U/L Microbiology - Last 24 Hours (Table) 11/03/23 15:10 Gram Stain - Final Other - Other Wound Culture - Final Pseudomonas aeruginosa Methicillin resist S. aureus 11/03/23 15:15 Gram Stain - Preliminary Other - Other Wound Culture - Preliminary Pseudomonas aeruginosa Morganella morganii Enterococcus faecalis 11/03/23 15:15 Anaerobic Culture - Preliminary Other - Other 11/03/23 15:10 Anaerobic Culture - Preliminary Other - Other Assessment and Plan Assessment: Bilateral lower extremity wounds status post debridement Perforated gastric ulcer status postrepair Acute ventilatory dependent respiratory failure Plan: Continue with supportive care at this time. Continue dressing changes daily. Likely would benefit from goals of care discussion with family due to poor prognosis overall.
[2023-11-06] MEDS: FUROSEMIDE 10 MG/ML 10 ML VIAL IV STA (15:20)
[2023-11-06 17:20] LABS: Glucose,Whole Blood 155 mg/dL (70-110)
[2023-11-06] MEDS: propofoL 100 ML IV ONE (18:11)
--- NOTE | 2023-11-06 22:27 | P.PN ---
Subjective 63-year-old gentleman with past medical history significant for PAD, multiple vascular procedures including femoral-tibial bypass followed by wound development, dehiscence of his left lower extremity, status post recent excisional debridement of the left lower leg wound with skin substitute placement, excisional debridement of the left great toe wound and excisional debridement of right lower leg wound x 2 on 10/03/[address] Inman, vascular surgery, presented to the ER with worsening bilateral lower extremity pain, edema, reports right lower extremity "split open" over the last week with serous drainage. His visiting nurse evaluated patient on Monday recommending ER. Denies any chest pain, palpitations or shortness of breath. Denies nausea vomiting or diarrhea. Denies abdominal pain. Denies fever or chills. Denies lightheadedness, dizziness or focal deficits. Wound and blood cultures obtained, initiated on vancomycin in the ER. Tmax 101, WBC 16.3, increased to 19.67, CRP 12.6 .hemoglobin 7.7, platelets 468. Sodium 129, potassium 3.3, bicarb 19, BUN 10, creatinine 0.7. Lactic acid 2.2, improved with IV fluid hydration, 1.1. Magnesium 1-repeat level ordered stat. 11/03/2023 --Patient is evaluated in room at bedside; remains afebrile this morning patient denies having any chest pain shortness of breath or cough, the patient is breathing comfortably and currently on room air, patient denies any abdominal pain no diarrhea no nausea no vomiting complaining of pain to the left lower extremity. Patient white count is 20.68, creatinine is 1.2 11/04/2023 -- the patient is seen and evaluated in room at bedside; denies any fever or any chills, patient is breathing comfortably on room air, the patient denies chest pain shortness of breath and no significant cough, patient denies abdominal pain, no nausea vomiting or diarrhea. Patient secondary complaint of bilateral lower extremity wound. --Patient white count is up to 38.3, creatinine is 1.66 patient is status post r debridement and deep culture completed on 11/03/2023 results will be followed patient did have significant drop in white count possible post reactive after surgical debridement we will repeat a CBC with a.m. lab, to continue with Zosyn and daptomycin and monitor clinical course closely 11/05/2023 Patient seen and evaluated in room at bedside; staff is present in the room; rapid response was called on the patient for complaint of abdominal pain and softer blood pressure --Stat CT of the abdomen, chest x-ray were ordered and patient received 2 IV fluid boluses in form of normal saline, 500 cc each -- CT of the abdomen reveals pneumoperitoneum with likely source being stomach; this was discussed with general surgery and intensive care physician; patient high risk for any surgical intervention -Patient transferred to ICU; discussed with patient's family; family is requesting to make patient DNR 11/05 Patient is intubated and sedated with pulmonary/critical care team following closely and help with vent management He remains on daptomycin and Eraxis and getting sodium bicarb at 125 He has extensive leukocytosis this morning 27,000, hemoglobin slightly low at 8.1 Creatinine stable at 2.4 Objective - Vital Signs Vital signs: Vital Signs Temp 97.7 F 11/06/23 04:00 Pulse 84 11/06/23 07:00 Resp 16 11/06/23 07:00 BP 103/63 11/06/23 03:00 Pulse Ox 100 11/06/23 07:00 FiO2 50 11/06/23 04:00 Intake & Output 11/05/23 11/06/23 11/06/23 18:59 06:59 18:59 Intake Total 2522.785 3169.136 125 Output Total 225 550 0 Balance 2297.785 2619.136 125 Weight 93 kg Intake: IV 2500 2675 125 Anidulafungin 100 mg In 100 Sodium Chloride 0.9% 100 ml @ 84 mls/hr IVPB DAILY [facility] Rx#:[id number] Lactated Ringers 1,000 ml 1375 125 @ 125 mls/hr IV .Q8H [facility] Rx#:[id number] Piperacillin-Tazobactam 3 200 .375 gm In Sodium Chloride 0.9% 100 ml @ 25 mls/hr IVPB Q8HR [facility] Rx# :[id number] Sodium Chloride 0.9% 1, 1000 000 ml @ 999 mls/hr IV . Q1H1M [facility] Rx#:[id number] Sodium Chloride 0.9% 2, 2000 000 ml @ 999 mls/hr IV . Q2H1M [facility] Rx#:[id number] Intake, IV Titration 22.785 494.136 Amount Norepinephrine 4 mg In 17.786 336.855 Sodium Chloride 0.9% 250 ml @ 0.03 MCG/KG/MIN 9. 851 mls/hr IV .Q24H [facility] Rx#:[id number] propofoL 1,000 mg In 4.999 157.281 Empty Bag 1 bag @ 15 MCG/ KG/MIN 7.757 mls/hr IV . [id number] [facility] Rx#:[id number] Output: Drainage 200 550 Right 200 550 Urine 0 0 0 Estimated Blood Loss 25 Other: Voiding Method Indwelling Catheter Indwelling Catheter ABP, PAP, CO, CI - Last Documented Arterial Blood Pressure 101/49 - Exam - GENERAL: The patient is intubated and sedated not in any acute distress. Well developed, well nourished. HEENT: Pupils are round and equally reacting to light. EOMI. No scleral icterus. No conjunctival pallor. Normocephalic, atraumatic. No pharyngeal erythema. No thyromegaly. CARDIOVASCULAR: S1 and S2 present. No murmurs, rubs, or gallops. PULMONARY: Chest is clear to auscultation, no wheezing , no crackles. ABDOMEN: Soft, nontender, nondistended, normoactive bowel sounds. No palpable organomegaly. MUSCULOSKELETAL: No joint swelling or deformity. -EXTREMITIES: No cyanosis, clubbing, or pedal edema. Left lower extremity wound with dressing in place, cellulitis NEUROLOGICAL: Gross neurological examination did not reveal any focal deficits. SKIN: No rashes. no petechiae. - Labs CBC & Chem 7: 11/06/23 04:38 11/06/23 04:38 Labs: Abnormal Lab Results - Last 24 Hours (Table) 11/05/23 11/05/23 11/05/23 Range/Units 12:30 13:54 16:40 WBC 31.8 H (3.8-10.6) k/uL RBC 3.70 L (4.30-5.90) m/uL Hgb 9.4 L (13.0-17.5) gm/dL Hct 32.7 L (39.0-53.0) % MCHC 28.9 L (31.0-37.0) g/dL RDW 23.3 H (11.5-15.5) % Plt Count 647 H (150-450) k/uL Neutrophils # (1.3-7.7) k/uL Neutrophils # (Manual) 29.50 H (1.3-7.7) k/uL Lymphocytes # (1.0-4.8) k/uL ABG pH (7.35-7.45) ABG pO2 (83-108) mmHg ABG HCO3 (21-25) mmol/L ABG Total CO2 (19-24) mmol/L ABG O2 Saturation (94-97) % Sodium (137-145) mmol/L Chloride (98-107) mmol/L Carbon Dioxide (22-30) mmol/L BUN (9-20) mg/dL Creatinine (0.66-1.25) mg/dL Glucose (74-99) mg/dL POC Glucose (mg/dL) 136 H 119 H (70-110) mg/dL Calcium (8.4-10.2) mg/dL 11/05/23 11/05/23 11/06/23 Range/Units 16:40 17:54 00:48 WBC (3.8-10.6) k/uL RBC (4.30-5.90) m/uL Hgb (13.0-17.5) gm/dL Hct (39.0-53.0) % MCHC (31.0-37.0) g/dL RDW (11.5-15.5) % Plt Count (150-450) k/uL Neutrophils # (1.3-7.7) k/uL Neutrophils # (Manual) (1.3-7.7) k/uL Lymphocytes # (1.0-4.8) k/uL ABG pH 7.12 L* (7.35-7.45) ABG pO2 327 H (83-108) mmHg ABG HCO3 15 L (21-25) mmol/L ABG Total CO2 16 L (19-24) mmol/L ABG O2 Saturation 99.9 H (94-97) % Sodium 135 L (137-145) mmol/L Chloride 112 H (98-107) mmol/L Carbon Dioxide 12 L (22-30) mmol/L BUN 53 H (9-20) mg/dL Creatinine 2.46 H (0.66-1.25) mg/dL Glucose 120 H (74-99) mg/dL POC Glucose (mg/dL) 124 H (70-110) mg/dL Calcium 7.5 L (8.4-10.2) mg/dL 11/06/23 11/06/23 11/06/23 Range/Units 04:38 04:38 05:27 WBC 27.8 H (3.8-10.6) k/uL RBC 3.14 L (4.30-5.90) m/uL Hgb 8.1 L (13.0-17.5) gm/dL Hct 27.2 L (39.0-53.0) % MCHC 29.9 L (31.0-37.0) g/dL RDW 24.4 H (11.5-15.5) % Plt Count 623 H (150-450) k/uL Neutrophils # 26.2 H (1.3-7.7) k/uL Neutrophils # (Manual) (1.3-7.7) k/uL Lymphocytes # 0.6 L (1.0-4.8) k/uL ABG pH 7.31 L (7.35-7.45) ABG pO2 142 H (83-108) mmHg ABG HCO3 18 L (21-25) mmol/L ABG Total CO2 (19-24) mmol/L ABG O2 Saturation 99.2 H (94-97) % Sodium (137-145) mmol/L Chloride 114 H (98-107) mmol/L Carbon Dioxide 15 L (22-30) mmol/L BUN 54 H (9-20) mg/dL Creatinine 2.43 H (0.66-1.25) mg/dL Glucose 104 H (74-99) mg/dL POC Glucose (mg/dL) (70-110) mg/dL Calcium 7.2 L (8.4-10.2) mg/dL 11/06/23 Range/Units 06:08 WBC (3.8-10.6) k/uL RBC (4.30-5.90) m/uL Hgb (13.0-17.5) gm/dL Hct (39.0-53.0) % MCHC (31.0-37.0) g/dL RDW (11.5-15.5) % Plt Count (150-450) k/uL Neutrophils # (1.3-7.7) k/uL Neutrophils # (Manual) (1.3-7.7) k/uL Lymphocytes # (1.0-4.8) k/uL ABG pH (7.35-7.45) ABG pO2 (83-108) mmHg ABG HCO3 (21-25) mmol/L ABG Total CO2 (19-24) mmol/L ABG O2 Saturation (94-97) % Sodium (137-145) mmol/L Chloride (98-107) mmol/L Carbon Dioxide (22-30) mmol/L BUN (9-20) mg/dL Creatinine (0.66-1.25) mg/dL Glucose (74-99) mg/dL POC Glucose (mg/dL) 111 H (70-110) mg/dL Calcium (8.4-10.2) mg/dL Microbiology - Last 24 Hours (Table) 11/03/23 15:10 Gram Stain - Final Other - Other Wound Culture - Final Pseudomonas aeruginosa Methicillin resist S. aureus 11/03/23 15:15 Gram Stain - Preliminary Other - Other Wound Culture - Preliminary Pseudomonas aeruginosa Morganella morganii Enterococcus faecalis 11/03/23 15:15 Anaerobic Culture - Preliminary Other - Other 11/03/23 15:10 Anaerobic Culture - Preliminary Other - Other Assessment and Plan Assessment: Sepsis secondary to infected bilateral lower extremity wounds, cellulitis, recent excisional debridement of left lower leg wound with skin substitute placement, excisional debridement of the left great toe wound and excisional debridement of the right lower leg wound x 2 on 10/03/[address] Inman , vascular surgery. Cultures currently growing Pseudomonas aeruginosa and Enterococcus faecalis and MRSA History of Pseudomonas and VRE on last wound culture of left leg 10/03/2023, Lactic acidosis secondary to the above History of Left lower extremity skin dehiscence and wound infection,MSSA, status post excisional debridement and wound VAC. Left great toe ischemia status post excisional debridement History of left femoral tibial bypass secondary to critical limb ischemia History of aortic aneurysm with endovascular repair; Chronic Paroximal atrial fibrillation CAD, history of stent placement Essential hypertension Hyperlipidemia Nicotine dependence Daily alcohol use Noncompliance with medication regimen, patient is high risk for readmission. Iron deficient anemia Hypokalemia Hypomagnesemia Hyponatremia Plan: Continue current medication regimen, monitoring and symptomatic treatment. Maintain IV fluids of D5/0.9 normal saline, continue holding Lasix ,close monitoring of electrolytes and renal function. Debridement tomorrow with vascular surgery. Antibiotics as per infectious disease. Pain management, local wound care. Case management arranging subacute rehab as patient will require IV antibiotics at discharge.
[2023-11-07 04:08] LABS: Amorphous Sediment,Urine Rare /hpf; Appearance,Urine Clear (Clear); Bacteria,Urine Occasional /hpf; Bilirubin,Urine Negative (Negative); Blood,Urine Small (Negative); Color,Urine Colorless; Glucose,Urine (UA) Negative (Negative); Hyaline Casts,Urine 4 /lpf (0-2); Ketones,Urine Negative (Negative); Leukocyte Esterase,Urine Trace (Negative); Mucus,Urine Rare /hpf; Nitrite,Urine Negative (Negative); Protein,Urine Trace (Negative); RBC,Urine 4 /hpf (0-5); Specific Gravity,Urine 1.009 (1.001-1.035); Squamous Epithelial Cell,Urine 1 /hpf (0-4); Urobilinogen,Urine <2.0 mg/dL (<2.0); WBC,Urine 13 /hpf (0-5)
[2023-11-07 04:27] LABS: ABG Base Excess -2.8 mmol/L; ABG HCO3 21 mmol/L (21-25); ABG Oxygen Saturation 97.1 % (94-97); ABG PCO2 33 mmHg (35-45); ABG PH 7.42 (7.35-7.45); ABG PO2 87 mmHg (83-108); ABG TCO2 22 mmol/L (19-24)
[2023-11-07 04:36] LABS: Allen Test Performed? no
[2023-11-07 05:03] LABS: Anisocytosis Marked; Basophils # (A) 0.1 k/uL (0-0.2); Basophils % (A) 0 %; Eosinophils % (A) 0 %; HCT 23.7 % (39.0-53.0); HGB 7.1 gm/dL (13.0-17.5); Hypochromasia Moderate; Lymphocytes # (A) 0.6 k/uL (1.0-4.8); Lymphocytes % (A) 3 %; MCH 25.5 pg (25.0-35.0); MCHC 30.2 g/dL (31.0-37.0); MCV 84.6 fL (80.0-100.0); Mean Platelet Volume 8.6; Microcytosis Slight; Monocytes # (A) 0.5 k/uL (0-1.0); Monocytes % (A) 2 %; Neutrophils # (A) 19.9 k/uL (1.3-7.7); Neutrophils % (A) 94 %; Platelet Count 477 k/uL (150-450); RDW 24.6 % (11.5-15.5); WBC 21.1 k/uL (3.8-10.6)
[2023-11-07 05:12] LABS: ALT 9 U/L (4-49); AST 27 U/L (17-59); African American GFR (CKD) 26 (>60 ml/min/1.73 sqM); Alkaline Phosphatase 121 U/L (38-126); Anion Gap 9 mmol/L; Blood Urea Nitrogen 53 mg/dL (9-20); Calcium 6.8 mg/dL (8.4-10.2); Carbon Dioxide 20 mmol/L (22-30); Chloride 108 mmol/L (98-107); Glucose 147 mg/dL (74-99); Non-African American GFR(CKD) 22 (>60 ml/min/1.73 sqM); Potassium 3.3 mmol/L (3.5-5.1); Sodium 137 mmol/L (137-145); Total Bilirubin 1.4 mg/dL (0.2-1.3); Total Protein 4.7 g/dL (6.3-8.2)
[2023-11-07] MEDS ORDERED: Potassium Replacement Protocol 1 EACH MISC MISCELLANE PRN (07:43)
--- NOTE | 2023-11-07 07:51 | XR ---
EXAMINATION TYPE: XR chest 1V portable DATE OF EXAM: 11/07/2023 5:03 AM CLINICAL INDICATION: Male, 63 years old with history of Tube placement; [facility] COMPARISON: Chest radiographs from 11/06/2023 TECHNIQUE: XR chest 1V portable Frontal view of the chest. FINDINGS: Lungs/Pleura: Blunting of left costophrenic angle. There is no evidence of right pleural effusion, fo nerissa consolidation, or pneumothorax. Pulmonary vascularity: Unremarkable. Heart/mediastinum: Cardiomediastinal silhouette is unremarkable. Musculoskeletal: No acute osseous pathology. Other findings: None Lines/Tubes: Endotracheal tube with distal tip 2.4 cm above the prince. Nasogastric tube with its distal tip and side-port projecting under the diaphragm. Right internal jugular central venous catheter with distal tip at the cavoatrial junction. IMPRESSION: 1. Stable appearance of lungs, support tubes and line are in a satisfactory position. 2. Small left pleural effusion.
[2023-11-07] MEDS: POTASSIUM CHLORIDE 20 MEQ in WATER FOR INJECTION 1 100ML.BAG IVPB SCH ×2 (08:10→16:20)
--- NOTE | 2023-11-07 09:21 | P.PN ---
Subjective Progress Note Date: 11/07/23 The patient is a 63-year-old male with multiple comorbid conditions. He is currently admitted to the hospital after undergoing debridement of lower extremity wounds, which was complicated by cellulitis. During his admission he was found to have pneumoperitoneum and underwent exploratory laparotomy where he he had a perforated gastric ulcer. The patient remains sedated on ventilator as well as on Levophed for supportive treatment. GENERAL: Ill-appearing. Currently sedated on ventilator. NECK: Supple without JVD or thyromegaly. LUNGS: Breath sounds coarse to auscultation bilaterally. Respiration equal and unlabored. Bilateral rhonchi. HEART: Irregular rate and rhythm without murmurs, rubs or gallops. S1 and S2 heard. EXTREMITIES: Normal range of motion, +2 generalized edema. No clubbing or c yanosis. Peripheral pulses intact and strong. TELEMETRY: Rate controlled atrial fibrillation in the low 100s LABS: WBC 21.1, hemoglobin 7.1, hematocrit 23.7, platelet 477, sodium 137, potassium 3.3, BUN 53, creatinine 2.84, AST 27, ALT 9 IMPRESSION: Persistent A. fib with controlled ventricular rates Septic shock Perforated gastric ulcer status post repair Cellulitis Anemia PAD AAA Acute kidney injury Tobacco abuse PLAN: Continue supportive treatment Consideration for amiodarone if patient becomes tachycardic Awaiting echocardiogram report Further recommendations to be based upon clinical course I am dictating on behalf of Dr Godwin Pierre's history/physical and assessment/plan. Objective - Vital Signs Vital signs: Vital Signs Temp 98.4 F 11/07/23 08:00 Pulse 105 H 11/07/23 08:53 Resp 18 11/07/23 08:15 BP 103/63 11/06/23 03:00 Pulse Ox 100 11/07/23 08:15 FiO2 35 11/07/23 08:37 Intake & Output 11/06/23 11/07/23 11/07/23 18:59 06:59 18:59 Intake Total 2953.359 3349.396 512.604 Output Total 285 1535 585 Balance 2668.359 1814.396 -72.396 Weight 94.1 kg Intake: IV 2700 2600 500 Anidulafungin 200 mg In 100 Sodium Chloride 0.9% 200 ml @ 84 mls/hr IVPB ONCE [facility] Rx#:[id number] DAPTOmycin 500 mg In 50 Sodium Chloride 0.9% 50 ml @ 100 mls/hr IVPB Q24HR [facility] Rx#:[id number] Dextrose 5% in Water 1, 1000 1500 250 000 ml @ 125 mls/hr IV . Q9H12M [facility] with Sodium Bicarb (1 Meq/ml) 150 ml Rx#:[id number] Lactated Ringers 1,000 ml 500 @ 125 mls/hr IV .Q8H [facility] Rx#:[id number] Lactated Ringers 1,000 ml 1000 @ 999 mls/hr IV .Q1H1M [facility] Rx#:[id number] Piperacillin-Tazobactam 3 100 1100 200 .375 gm In Sodium Chloride 0.9% 100 ml @ 25 mls/hr IVPB Q8HR [facility] Rx# :[id number] Intake, IV Titration 253.359 749.396 12.604 Amount Norepinephrine 4 mg In 153.359 749.396 12.604 Sodium Chloride 0.9% 250 ml @ 0.03 MCG/KG/MIN 9. 851 mls/hr IV .Q24H [facility] Rx#:[id number] propofoL 1,000 mg In 100 Empty Bag 1 bag @ 15 MCG/ KG/MIN 7.757 mls/hr IV . [id number] [facility] Rx#:[id number] Output: Drainage 220 1000 280 Right 220 1000 280 Urine 65 535 305 Other: Voiding Method Indwelling Catheter Indwelling Catheter Indwelling Catheter ABP, PAP, CO, CI - Last Documented Arterial Blood Pressure 111/61 - Labs CBC & Chem 7: 11/07/23 04:30 11/07/23 04:30 Labs: Abnormal Lab Results - Last 24 Hours (Table) 11/06/23 11/06/23 11/06/23 Range/Units 12:04 12:44 17:18 WBC (3.8-10.6) k/uL RBC (4.30-5.90) m/uL Hgb (13.0-17.5) gm/dL Hct (39.0-53.0) % MCHC (31.0-37.0) g/dL RDW (11.5-15.5) % Plt Count (150-450) k/uL Neutrophils # (1.3-7.7) k/uL Lymphocytes # (1.0-4.8) k/uL ABG pCO2 (35-45) mmHg ABG O2 Saturation (94-97) % Potassium (3.5-5.1) mmol/L Chloride (98-107) mmol/L Carbon Dioxide (22-30) mmol/L BUN (9-20) mg/dL Creatinine (0.66-1.25) mg/dL Glucose (74-99) mg/dL POC Glucose (mg/dL) 112 H 155 H (70-110) mg/dL Calcium (8.4-10.2) mg/dL Total Bilirubin (0.2-1.3) mg/dL Creatine Kinase 43 L (55-170) U/L Total Protein (6.3-8.2) g/dL Albumin (3.5-5.0) g/dL Urine Protein (Negative) Urine Blood (Negative) Ur Leukocyte Esterase (Negative) Urine WBC (0-5) /hpf Amorphous Sediment (None) /hpf Urine Bacteria (None) /hpf Hyaline Casts (0-2) /lpf Urine Mucus (None) /hpf 11/07/23 11/07/23 11/07/23 Range/Units 03:22 04:24 04:30 WBC 21.1 H (3.8-10.6) k/uL RBC 2.80 L (4.30-5.90) m/uL Hgb 7.1 L (13.0-17.5) gm/dL Hct 23.7 L (39.0-53.0) % MCHC 30.2 L (31.0-37.0) g/dL RDW 24.6 H (11.5-15.5) % Plt Count 477 H (150-450) k/uL Neutrophils # 19.9 H (1.3-7.7) k/uL Lymphocytes # 0.6 L (1.0-4.8) k/uL ABG pCO2 33 L (35-45) mmHg ABG O2 Saturation 97.1 H (94-97) % Potassium (3.5-5.1) mmol/L Chloride (98-107) mmol/L Carbon Dioxide (22-30) mmol/L BUN (9-20) mg/dL Creatinine (0.66-1.25) mg/dL Glucose (74-99) mg/dL POC Glucose (mg/dL) (70-110) mg/dL Calcium (8.4-10.2) mg/dL Total Bilirubin (0.2-1.3) mg/dL Creatine Kinase (55-170) U/L Total Protein (6.3-8.2) g/dL Albumin (3.5-5.0) g/dL Urine Protein Trace H (Negative) Urine Blood Small H (Negative) Ur Leukocyte Esterase Trace H (Negative) Urine WBC 13 H (0-5) /hpf Amorphous Sediment Rare H (None) /hpf Urine Bacteria Occasional H (None) /hpf Hyaline Casts 4 H (0-2) /lpf Urine Mucus Rare H (None) /hpf 11/07/23 Range/Units 04:30 WBC (3.8-10.6) k/uL RBC (4.30-5.90) m/uL Hgb (13.0-17.5) gm/dL Hct (39.0-53.0) % MCHC (31.0-37.0) g/dL RDW (11.5-15.5) % Plt Count (150-450) k/uL Neutrophils # (1.3-7.7) k/uL Lymphocytes # (1.0-4.8) k/uL ABG pCO2 (35-45) mmHg ABG O2 Saturation (94-97) % Potassium 3.3 L (3.5-5.1) mmol/L Chloride 108 H (98-107) mmol/L Carbon Dioxide 20 L (22-30) mmol/L BUN 53 H (9-20) mg/dL Creatinine 2.84 H (0.66-1.25) mg/dL Glucose 147 H (74-99) mg/dL POC Glucose (mg/dL) (70-110) mg/dL Calcium 6.8 L (8.4-10.2) mg/dL Total Bilirubin 1.4 H (0.2-1.3) mg/dL Creatine Kinase (55-170) U/L Total Protein 4.7 L (6.3-8.2) g/dL Albumin 2.0 L (3.5-5.0) g/dL Urine Protein (Negative) Urine Blood (Negative) Ur Leukocyte Esterase (Negative) Urine WBC (0-5) /hpf Amorphous Sediment (None) /hpf Urine Bacteria (None) /hpf Hyaline Casts (0-2) /lpf Urine Mucus (None) /hpf Microbiology - Last 24 Hours (Table) 11/05/23 20:30 Gram Stain - Preliminary Sputum 11/05/23 16:40 Blood Culture - Preliminary Blood 11/03/23 15:10 Anaerobic Culture - Preliminary Other - Other Doreen albicans 11/03/23 15:15 Gram Stain - Preliminary Other - Other Wound Culture - Preliminary Pseudomonas aeruginosa Morganella morganii Enterococcus faecalis
--- NOTE | 2023-11-07 10:56 | P.PN ---
Subjective Progress Note Date: 11/07/23 Principal diagnosis: Bilateral lower extremity wounds Patient is seen and examined in the ICU. Patient remains sedated and intubated. He is status post lower extremity debridement as well as undergoing repair for perforated gastric ulcer. Objective - Vital Signs Vital signs: Vital Signs Temp 98.4 F 11/07/23 08:00 Pulse 105 H 11/07/23 08:53 Resp 18 11/07/23 08:15 BP 103/63 11/06/23 03:00 Pulse Ox 100 11/07/23 08:15 FiO2 35 11/07/23 08:37 Intake & Output 11/06/23 11/07/23 11/07/23 18:59 06:59 18:59 Intake Total 2953.359 3349.396 512.604 Output Total 285 1535 585 Balance 2668.359 1814.396 -72.396 Weight 94.1 kg Intake: IV 2700 2600 500 Anidulafungin 200 mg In 100 Sodium Chloride 0.9% 200 ml @ 84 mls/hr IVPB ONCE [facility] Rx#:[id number] DAPTOmycin 500 mg In 50 Sodium Chloride 0.9% 50 ml @ 100 mls/hr IVPB Q24HR [facility] Rx#:[id number] Dextrose 5% in Water 1, 1000 1500 250 000 ml @ 125 mls/hr IV . Q9H12M [facility] with Sodium Bicarb (1 Meq/ml) 150 ml Rx#:[id number] Lactated Ringers 1,000 ml 500 @ 125 mls/hr IV .Q8H [facility] Rx#:[id number] Lactated Ringers 1,000 ml 1000 @ 999 mls/hr IV .Q1H1M [facility] Rx#:[id number] Piperacillin-Tazobactam 3 100 1100 200 .375 gm In Sodium Chloride 0.9% 100 ml @ 25 mls/hr IVPB Q8HR [facility] Rx# :[id number] Intake, IV Titration 253.359 749.396 12.604 Amount Norepinephrine 4 mg In 153.359 749.396 12.604 Sodium Chloride 0.9% 250 ml @ 0.03 MCG/KG/MIN 9. 851 mls/hr IV .Q24H [facility] Rx#:[id number] propofoL 1,000 mg In 100 Empty Bag 1 bag @ 15 MCG/ KG/MIN 7.757 mls/hr IV . [id number] [facility] Rx#:[id number] Output: Drainage 220 1000 280 Right 220 1000 280 Urine 65 535 305 Other: Voiding Method Indwelling Catheter Indwelling Catheter Indwelling Catheter ABP, PAP, CO, CI - Last Documented Arterial Blood Pressure 111/61 - Exam General appearance: The patient is sedated and intubated. HET: Head is normocephalic and atraumatic. Neck: Supple. Heart: Regular. Lungs: Equal expansion, mechanical ventilation. Abdomen: Soft, nontender, nondistended. Extremities: Lower extremities with dressings clean dry and intact. Neurological: Sedated and intubated. - Labs CBC & Chem 7: 11/07/23 04:30 11/07/23 04:30 Labs: Abnormal Lab Results - Last 24 Hours (Table) 11/06/23 11/06/23 11/06/23 Range/Units 12:04 12:44 17:18 WBC (3.8-10.6) k/uL RBC (4.30-5.90) m/uL Hgb (13.0-17.5) gm/dL Hct (39.0-53.0) % MCHC (31.0-37.0) g/dL RDW (11.5-15.5) % Plt Count (150-450) k/uL Neutrophils # (1.3-7.7) k/uL Lymphocytes # (1.0-4.8) k/uL ABG pCO2 (35-45) mmHg ABG O2 Saturation (94-97) % Potassium (3.5-5.1) mmol/L Chloride (98-107) mmol/L Carbon Dioxide (22-30) mmol/L BUN (9-20) mg/dL Creatinine (0.66-1.25) mg/dL Glucose (74-99) mg/dL POC Glucose (mg/dL) 112 H 155 H (70-110) mg/dL Calcium (8.4-10.2) mg/dL Total Bilirubin (0.2-1.3) mg/dL Creatine Kinase 43 L (55-170) U/L Total Protein (6.3-8.2) g/dL Albumin (3.5-5.0) g/dL Urine Protein (Negative) Urine Blood (Negative) Ur Leukocyte Esterase (Negative) Urine WBC (0-5) /hpf Amorphous Sediment (None) /hpf Urine Bacteria (None) /hpf Hyaline Casts (0-2) /lpf Urine Mucus (None) /hpf 11/07/23 11/07/23 11/07/23 Range/Units 03:22 04:24 04:30 WBC 21.1 H (3.8-10.6) k/uL RBC 2.80 L (4.30-5.90) m/uL Hgb 7.1 L (13.0-17.5) gm/dL Hct 23.7 L (39.0-53.0) % MCHC 30.2 L (31.0-37.0) g/dL RDW 24.6 H (11.5-15.5) % Plt Count 477 H (150-450) k/uL Neutrophils # 19.9 H (1.3-7.7) k/uL Lymphocytes # 0.6 L (1.0-4.8) k/uL ABG pCO2 33 L (35-45) mmHg ABG O2 Saturation 97.1 H (94-97) % Potassium (3.5-5.1) mmol/L Chloride (98-107) mmol/L Carbon Dioxide (22-30) mmol/L BUN (9-20) mg/dL Creatinine (0.66-1.25) mg/dL Glucose (74-99) mg/dL POC Glucose (mg/dL) (70-110) mg/dL Calcium (8.4-10.2) mg/dL Total Bilirubin (0.2-1.3) mg/dL Creatine Kinase (55-170) U/L Total Protein (6.3-8.2) g/dL Albumin (3.5-5.0) g/dL Urine Protein Trace H (Negative) Urine Blood Small H (Negative) Ur Leukocyte Esterase Trace H (Negative) Urine WBC 13 H (0-5) /hpf Amorphous Sediment Rare H (None) /hpf Urine Bacteria Occasional H (None) /hpf Hyaline Casts 4 H (0-2) /lpf Urine Mucus Rare H (None) /hpf 11/07/23 Range/Units 04:30 WBC (3.8-10.6) k/uL RBC (4.30-5.90) m/uL Hgb (13.0-17.5) gm/dL Hct (39.0-53.0) % MCHC (31.0-37.0) g/dL RDW (11.5-15.5) % Plt Count (150-450) k/uL Neutrophils # (1.3-7.7) k/uL Lymphocytes # (1.0-4.8) k/uL ABG pCO2 (35-45) mmHg ABG O2 Saturation (94-97) % Potassium 3.3 L (3.5-5.1) mmol/L Chloride 108 H (98-107) mmol/L Carbon Dioxide 20 L (22-30) mmol/L BUN 53 H (9-20) mg/dL Creatinine 2.84 H (0.66-1.25) mg/dL Glucose 147 H (74-99) mg/dL POC Glucose (mg/dL) (70-110) mg/dL Calcium 6.8 L (8.4-10.2) mg/dL Total Bilirubin 1.4 H (0.2-1.3) mg/dL Creatine Kinase (55-170) U/L Total Protein 4.7 L (6.3-8.2) g/dL Albumin 2.0 L (3.5-5.0) g/dL Urine Protein (Negative) Urine Blood (Negative) Ur Leukocyte Esterase (Negative) Urine WBC (0-5) /hpf Amorphous Sediment (None) /hpf Urine Bacteria (None) /hpf Hyaline Casts (0-2) /lpf Urine Mucus (None) /hpf Microbiology - Last 24 Hours (Table) 11/05/23 20:30 Gram Stain - Preliminary Sputum 11/05/23 16:40 Blood Culture - Preliminary Blood 11/03/23 15:10 Anaerobic Culture - Preliminary Other - Other Doreen albicans 11/03/23 15:15 Gram Stain - Preliminary Other - Other Wound Culture - Preliminary Pseudomonas aeruginosa Morganella morganii Enterococcus faecalis Assessment and Plan Assessment: 1. Bilateral lower extremity wound status postdebridement 2. Perforated gastric ulcer status post repair 3. Acute ventilatory dependent respiratory failure Plan: 1. Continue with ICU supportive care. 2. Continue lower extremity local wound care daily. 3. Patient will need outpatient wound care upon discharge 4. No further vascular surgical intervention at this time Thank you for this consultation, we will sign off at this time. The impression and plan of care has been dictated as directed. I performed a history and examination of this patient, discussed the same with the dictator. I agree with the dictator's note ,documented as a scribe. Any additional findings or plans will be noted.
--- NOTE | 2023-11-07 11:01 | P.PN ---
Subjective he shouldn't is seen for follow-up for acute kidney injury. Patient remains on the vent.FiO2 is at 35%. Started on bicarb drip yesterday. Status post IV Lasix 1 yesterday. Urine output has improved to about 30-40 mL an hour. Serum creatinine at 2.8 today. Objective - Vital Signs Vital signs: Vital Signs Temp 98.4 F 11/07/23 08:00 Pulse 105 H 11/07/23 10:00 Resp 18 11/07/23 10:00 BP 103/63 11/06/23 03:00 Pulse Ox 100 11/07/23 10:00 FiO2 35 11/07/23 08:37 Intake & Output 11/06/23 11/07/23 11/07/23 18:59 06:59 18:59 Intake Total 2953.359 3349.396 985.205 Output Total 285 1535 925 Balance 2668.359 1814.396 60.205 Weight 94.1 kg Intake: IV 2700 2600 950 Anidulafungin 200 mg In 100 Sodium Chloride 0.9% 200 ml @ 84 mls/hr IVPB ONCE ONE Rx#:[id number] DAPTOmycin 500 mg In 50 Sodium Chloride 0.9% 50 ml @ 100 mls/hr IVPB Q24HR REPLACED BY [facility] Rx#:[id number] Dextrose 5% in Water 1, 1000 1500 500 000 ml @ 125 mls/hr IV . Q9H12M [facility] with Sodium Bicarb (1 Meq/ml) 150 ml Rx#:[id number] Lactated Ringers 1,000 ml 500 @ 125 mls/hr IV .Q8H REPLACED BY [facility] Rx#:[id number] Lactated Ringers 1,000 ml 1000 @ 999 mls/hr IV .Q1H1M ONE Rx#:[id number] Piperacillin-Tazobactam 3 100 1100 200 .375 gm In Sodium Chloride 0.9% 100 ml @ 25 mls/hr IVPB Q8HR REPLACED BY [facility] Rx# :[id number] Potassium Chloride 20 meq 200 In Water For Injection 1 100ml.bag @ 50 mls/hr IVPB Q2H REPLACED BY [facility] Rx#: [id number] Intake, IV Titration 253.359 749.396 35.205 Amount Norepinephrine 4 mg In 153.359 749.396 35.205 Sodium Chloride 0.9% 250 ml @ 0.03 MCG/KG/MIN 9. 851 mls/hr IV .Q24H [facility]ISSY Rx#:[id number] propofoL 1,000 mg In 100 Empty Bag 1 bag @ 15 MCG/ KG/MIN 7.757 mls/hr IV . [id number] MISSY Rx#:[id number] Output: Drainage 220 1000 460 Right 220 1000 460 Urine 65 535 465 Other: Voiding Method Indwelling Catheter Indwelling Catheter Indwelling Catheter ABP, PAP, CO, CI - Last Documented Arterial Blood Pressure 103/56 - Exam Patient is sedated. Currently on the vent. FiO2 35%. Examination of the heart S1 and S2 Examination of the lungs bilateral breath sounds are heard Abdomen is dressed Bilateral lower extremities are wrapped. - Labs CBC & Chem 7: 11/07/23 04:30 11/07/23 04:30 Labs: Abnormal Lab Results - Last 24 Hours (Table) 11/06/23 11/06/23 11/06/23 Range/Units 12:04 12:44 17:18 WBC (3.8-10.6) k/uL RBC (4.30-5.90) m/uL Hgb (13.0-17.5) gm/dL Hct (39.0-53.0) % MCHC (31.0-37.0) g/dL RDW (11.5-15.5) % Plt Count (150-450) k/uL Neutrophils # (1.3-7.7) k/uL Lymphocytes # (1.0-4.8) k/uL ABG pCO2 (35-45) mmHg ABG O2 Saturation (94-97) % Potassium (3.5-5.1) mmol/L Chloride (98-107) mmol/L Carbon Dioxide (22-30) mmol/L BUN (9-20) mg/dL Creatinine (0.66-1.25) mg/dL Glucose (74-99) mg/dL POC Glucose (mg/dL) 112 H 155 H (70-110) mg/dL Calcium (8.4-10.2) mg/dL Total Bilirubin (0.2-1.3) mg/dL Creatine Kinase 43 L (55-170) U/L Total Protein (6.3-8.2) g/dL Albumin (3.5-5.0) g/dL Urine Protein (Negative) Urine Blood (Negative) Ur Leukocyte Esterase (Negative) Urine WBC (0-5) /hpf Amorphous Sediment (None) /hpf Urine Bacteria (None) /hpf Hyaline Casts (0-2) /lpf Urine Mucus (None) /hpf 11/07/23 11/07/23 11/07/23 Range/Units 03:22 04:24 04:30 WBC 21.1 H (3.8-10.6) k/uL RBC 2.80 L (4.30-5.90) m/uL Hgb 7.1 L (13.0-17.5) gm/dL Hct 23.7 L (39.0-53.0) % MCHC 30.2 L (31.0-37.0) g/dL RDW 24.6 H (11.5-15.5) % Plt Count 477 H (150-450) k/uL Neutrophils # 19.9 H (1.3-7.7) k/uL Lymphocytes # 0.6 L (1.0-4.8) k/uL ABG pCO2 33 L (35-45) mmHg ABG O2 Saturation 97.1 H (94-97) % Potassium (3.5-5.1) mmol/L Chloride (98-107) mmol/L Carbon Dioxide (22-30) mmol/L BUN (9-20) mg/dL Creatinine (0.66-1.25) mg/dL Glucose (74-99) mg/dL POC Glucose (mg/dL) (70-110) mg/dL Calcium (8.4-10.2) mg/dL Total Bilirubin (0.2-1.3) mg/dL Creatine Kinase (55-170) U/L Total Protein (6.3-8.2) g/dL Albumin (3.5-5.0) g/dL Urine Protein Trace H (Negative) Urine Blood Small H (Negative) Ur Leukocyte Esterase Trace H (Negative) Urine WBC 13 H (0-5) /hpf Amorphous Sediment Rare H (None) /hpf Urine Bacteria Occasional H (None) /hpf Hyaline Casts 4 H (0-2) /lpf Urine Mucus Rare H (None) /hpf 11/07/23 Range/Units 04:30 WBC (3.8-10.6) k/uL RBC (4.30-5.90) m/uL Hgb (13.0-17.5) gm/dL Hct (39.0-53.0) % MCHC (31.0-37.0) g/dL RDW (11.5-15.5) % Plt Count (150-450) k/uL Neutrophils # (1.3-7.7) k/uL Lymphocytes # (1.0-4.8) k/uL ABG pCO2 (35-45) mmHg ABG O2 Saturation (94-97) % Potassium 3.3 L (3.5-5.1) mmol/L Chloride 108 H (98-107) mmol/L Carbon Dioxide 20 L (22-30) mmol/L BUN 53 H (9-20) mg/dL Creatinine 2.84 H (0.66-1.25) mg/dL Glucose 147 H (74-99) mg/dL POC Glucose (mg/dL) (70-110) mg/dL Calcium 6.8 L (8.4-10.2) mg/dL Total Bilirubin 1.4 H (0.2-1.3) mg/dL Creatine Kinase (55-170) U/L Total Protein 4.7 L (6.3-8.2) g/dL Albumin 2.0 L (3.5-5.0) g/dL Urine Protein (Negative) Urine Blood (Negative) Ur Leukocyte Esterase (Negative) Urine WBC (0-5) /hpf Amorphous Sediment (None) /hpf Urine Bacteria (None) /hpf Hyaline Casts (0-2) /lpf Urine Mucus (None) /hpf Microbiology - Last 24 Hours (Table) 11/05/23 20:30 Gram Stain - Preliminary Sputum 11/05/23 16:40 Blood Culture - Preliminary Blood 11/03/23 15:10 Anaerobic Culture - Preliminary Other - Other Doreen albicans 11/03/23 15:15 Gram Stain - Preliminary Other - Other Wound Culture - Preliminary Pseudomonas aeruginosa Morganella morganii Enterococcus faecalis Assessment and Plan Assessment: 1. Acute kidney injury, ATN, oliguric secondary to hypotension and sepsis. Vancomycin noted upon initial admission however currently patient is maintained on daptomycin. He has received multiple fluid boluses. UA will be ordered. No evidence of obstruction on CT of the abdomen. 2. Nongap metabolic acidosis secondary to acute kidney injury 3. Sepsis with septic shock from perforated viscus and bilateral lower extremity wounds. 4. Bilateral lower extremity wounds with wound cultures growing MRSA, Pseudomonas and Enterococcus faecalis. Patient is being followed by ID. 5. Acute hypoxic respiratory failure maintained on the vent Plan: continue with bicarb drip. Replace potassium cautiously. Continue to avoid nephrotoxic agents.
[2023-11-07 12:19] LABS: Glucose,Whole Blood 135 mg/dL (70-110)
--- NOTE | 2023-11-07 12:58 | CA ---
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 67 - 155 / 56 - 104 cm??? LV Systolic Volume MOD BP 28.2 cm??? 22 - 58 / 19 - 49 cm??? LV Ejection Fraction MOD BP 61.9 % >= 55 % LV Cardiac Index MOD BP 2044.1 cm???/min???m??? LV Diastolic Volume MOD 4C 96.6 cm??? LV Systolic Volume MOD 4C 44.4 cm??? LV Ejection Fraction MOD 4C 54.0 % LV Cardiac Index MOD 4C 2326.9 cm???/min???m??? LV Diastolic Length 4C 8.6 cm LV Systolic Length 4C 7.9 cm LV Diastolic Volume MOD 2C 61.1 cm??? LV Systolic Volume MOD 2C 22.7 cm??? LV Ejection Fraction MOD 2C 62.9 % LV Cardiac Index MOD 2C 1712.5 cm???/min???m??? LV Diastolic Length 2C 7.8 cm LV Systolic Length 2C 6.2 cm LA Volume 52.1 cm??? 18 - 58 / 22 - 52 cm??? LA Volume Index 24.2 cm???/m??? 16 - 28 cm???/m??? M-MODE Aortic Root Diameter MM 3.6 cm AV Cusp Separation MM 2.1 cm DOPPLER AV Peak Velocity 137.0 cm/s AV Peak Gradient 7.5 mmHg MV Area PHT 4.2 cm??? MV Deceleration Time 193.9 ms TR Peak Velocity 266.4 cm/s TR Peak Gradient 28.4 mmHg Right Ventricular Systolic Press 33.4 mmHg FINDINGS Left Ventricle Left ventricular ejection fraction is estimated at 55-60 %. Left ventricular cavity size normal. Mildly increased septal wall thickness. No obvious regional wall motion abnormalities. Right Ventricle Mild right ventricular dilatation. Right ventricular systolic pressure within normal limits. Right Atrium Normal right atrial size. No right atrial thrombus or mass seen. Left Atrium Mildly increased left atrial diameter. Mildly increased left atrial area. No left atrial thrombus or mass present. Mitral Valve Structurally normal mitral valve. Trace mitral regurgitation. Aortic Valve Trileaflet aortic valve. No aortic valve stenosis or regurgitation. Tricuspid Valve Structurally normal tricuspid valve. Trace to mild tricuspid regurgitation. Pulmonic Valve Pulmonic valve not well visualized. Pericardium No pericardial effusion. Aorta Normal size aortic root and proximal ascending aorta. CONCLUSIONS Normal LV size and systolic function. Minimal mitral and tricuspid regurgitation. Mildly enlarged right ventricle. Normal PA pressures. No pericardial effusion Previewed by: Dr. Adam Nina MD (Electronically Signed) Final Date: 07 November 2023 12:57
--- NOTE | 2023-11-07 13:18 | P.PN ---
Subjective Progress Note Date: 11/07/23 Patient is a 63-year-old white male with past medical history significant for chronic bilateral lower extremity wounds with multiple previous debridements, peripheral vascular disease, recent femoropopliteal artery bypass, AAA, coronary artery disease, hyperlipidemia, hypertension, and tobacco dependence. He is currently intubated to the mechanical ventilator in the intensive care unit, and unable to provide any information for HPI. Apparently, he presented to the emergency department on 10/29/2023 with his lower extremity wounds and suspected cellulitis/sepsis. He follows with vascular surgery. On 11/03/2023 he did undergo debridement of his bilateral lower extremity wounds. Wound cultures p ositive for polymicrobial organisms including Pseudomonas aeruginosa, MRSA, Enterococcus faecalis. Antibiotics are being directed by infectious disease. Yesterday, on 11/05/2023 the patient was having some abdominal pain and issues with hypotension. A rapid response was called. CT of the abdomen and pelvis without contrast demonstrated a pneumoperitoneum. Patient was then taken to the operating room yesterday evening for an exploratory laparotomy, was found to have a perforated gastric ulcer; subsequently underwent repair with a modified Jasvir patch. Patient was transferred back to the intensive care unit in critical condition. Currently, patient is being evaluated in the intensive care unit intubated to the mechanical ventilator. Most recent ABGs consistent with profound metabolic acidosis. PaO2 327, pCO2 45, pH of 7.12. He was given 3 A of sodium bicarbonate. Current ventilator settings include assist-control, respiratory rate 16, tidal volume 450, FiO2 50%, and PEEP of 5. Chest x-ray, showing the tip of the endotracheal tube in a proximal position, approximately 9 cm above the prince. Nasogastric tube within the stomach. There is a left- sided pleural effusion. Dr. Crystal previously had the endotracheal tube advanced 3 cm. Patient is currently sedated on propofol which is infusing at 25 mcg/kg/min. He is synchronous with mechanical ventilator. Remains hypotensive, currently requiring vasopressors in the form of norepinephrine which is infusing at 0.1 mcg/kg/min. Postoperatively, the patient was fluid resuscitated with a total of 2 L crystalloid fluid. Lactated Ringer's also infusing at 125 mL/h. CVP is reading 8 mmHg. Patient has remained anuric. Heart rhythm appears atrial fibrillation with controlled ventricular response ranging from 80 to 90 bpm. Patient does have history of A-fib, not on any anticoagulation currently. Patient's abdominal incision has a wound VAC, and there is a compressed SANDY drain that is drained a total of 510 mL of serosanguineous output since surgery. Patient is currently covered on a combination of Zosyn, daptomycin, and Eraxis, which are being directed by infectious disease. Currently, hypothermic with external warming blanket on. Postoperative CBC: WBC count 31.8, hemoglobin 9.4, hematocrit 32.7, platelets 647. Postoperative BMP: Sodium 135, potassium 4.2, chloride 112, serum bicarb 12, BUN 53, creatinine 2.46, glucose 120. Overall, prognosis is guarded. On 11/07/2023, the patient is being seen for a follow-up. The patient remains intubated on the mechanical ventilator. This morning, the patient is sedated on propofol which is running at 40 mcg/kg/min. The patient remains intubated on mechanical ventilator on assist-control mode rate of 16, tidal volume of 450, FiO2 of 35% with a PEEP of 5. Chest x-ray shows consolidation of the lung bases more so on the left. ET tube is in good location. The patient also has an NG tube in place. The blood gas showed a pH of 7.42 with a pCO2 of 31 and pO2 of 87. No significant extra secretion the patient is currently intubated by #8 orotracheal tube. Hemodynamically, the patient remains on low-dose norepinephrine which is running at 0.05 mcg/kg/min. The patient is on a bicarb infusion running at 125 cc an hour. Output from the SANDY drain is quite extensive approximately 500 cc of serous material over the past 8 hours. The patient remains on the same antibiotic coverage and this includes Zosyn, daptomycin and Eraxis. On today's evaluation, the patient's white cell count is at 21 with a hemoglobin 7.1 and a platelet count of 477. BUN is 53 with a creatinine of 2.8 and a sodium levels at 137. The potassium levels of 3.3. Serum bicarb is at 20. Cultures from the wound is positive for Pseudomonas aeruginosa, Morganella and Enterococcus faecalis. Sputum sample is still negative for the time being. The patient is afebrile. The wounds in the lower extremity are appropriately dressed. Noted the patient has undergone multiple previous debridements of the lower extremity wounds. He is known to have severe PAD vascular disease. He is status post femoropopliteal bypass surgery. He is also known to have abdominal aortic aneurysm status post endovascular grafting along with coronary artery disease and hypertension hyperlipidemia. The patient is also status post gastric perforation with pneumoperitoneum requiring immediate surgical interventionAnd the patient has undergone exploratory laparotomy and repair of the perforated gastric ulcer with a modified Jasvir patch technique. Surgery was done on 11/05/2023 and the patient is currently postop day #2. He remains n.p.o. for now. Objective - Vital Signs Vital signs: Vital Signs Temp 98.4 F 11/07/23 08:00 Pulse 96 11/07/23 09:45 Resp 16 11/07/23 09:45 BP 103/63 11/06/23 03:00 Pulse Ox 100 11/07/23 09:45 FiO2 35 11/07/23 08:37 Intake & Output 11/06/23 11/07/23 11/07/23 18:59 06:59 18:59 Intake Total 2953.359 3349.396 760.205 Output Total 285 1535 765 Balance 2668.359 1814.396 -4.795 Weight 94.1 kg Intake: IV 2700 2600 725 Anidulafungin 200 mg In 100 Sodium Chloride 0.9% 200 ml @ 84 mls/hr IVPB ONCE ONE Rx#:[id number] DAPTOmycin 500 mg In 50 Sodium Chloride 0.9% 50 ml @ 100 mls/hr IVPB Q24HR [facility] Rx#:[id number] Dextrose 5% in Water 1, 1000 1500 375 000 ml @ 125 mls/hr IV . Q9H12M M[facility]SY with Sodium Bicarb (1 Meq/ml) 150 ml Rx#:[id number] Lactated Ringers 1,000 ml 500 @ 125 mls/hr IV .Q8H [facility] Rx#:[id number] Lactated Ringers 1,000 ml 1000 @ 999 mls/hr IV .Q1H1M ONE Rx#:[id number] Piperacillin-Tazobactam 3 100 1100 200 .375 gm In Sodium Chloride 0.9% 100 ml @ 25 mls/hr IVPB Q8HR [facility] Rx# :[id number] Potassium Chloride 20 meq 100 In Water For Injection 1 100ml.bag @ 50 mls/hr IVPB Q2H [facility] Rx#: [id number] Intake, IV Titration 253.359 749.396 35.205 Amount Norepinephrine 4 mg In 153.359 749.396 35.205 Sodium Chloride 0.9% 250 ml @ 0.03 MCG/KG/MIN 9. 851 mls/hr IV .Q24H [facility] Rx#:[id number] propofoL 1,000 mg In 100 Empty Bag 1 bag @ 15 MCG/ KG/MIN 7.757 mls/hr IV . [id number] [facility] Rx#:[id number] Output: Drainage 220 1000 360 Right 220 1000 360 Urine 65 535 405 Other: Voiding Method Indwelling Catheter Indwelling Catheter Indwelling Catheter ABP, PAP, CO, CI - Last Documented Arterial Blood Pressure 114/59 - Exam GENERAL EXAM: Sedated and intubated to the mechanical ventilator, synchronous m echanical ventilator, facial grimacing with deep painful stimuli, withdraws to pain in all 4 extremities HEAD: Normocephalic and atraumatic EYES: Normal reaction of pupils, equal size. NOSE: Clear with pink turbinates. THROAT: No erythema or exudates. NECK: No masses, no JVD. Right IJ central line catheter in place. CHEST: No chest wall deformity. LUNGS: Equal air entry with no crackles, wheeze, rhonchi or dullness. Intubated to mechanical ventilator, synchronous with current vent settings. Minimal endotracheal secretions. Peak pressures 28 CVS: S1 and S2 normal with no audible murmur, irregular rhythm. No extra heart sounds ABDOMEN: Midline abdominal incision with wound VAC, wound not approximated. SANDY drain compressed and draining serosanguineous output. Abdomen is soft, bowel sounds hypoactive, no appreciated organomegaly. The patient has a SANDY drain in place. Output is noted in the order of 500 cc over the past 8 hours. SPINE: No scoliosis or deformity SKIN: Bilateral lower extremities wrapped in postoperative dressing/Abhijeet Kerlix wrap CENTRAL NERVOUS SYSTEM: Sedated on propofol, no focal deficits, withdraws to pain in all 4 extremities. EXTREMITIES: Bilateral lower extremities wrapped in Kerlix, distal pulses posterior tibial found with Doppler. Brachial arterial line in place with good arterial waveform. Bilateral radial pulses weak but palpable, capillary refill greater than 3 seconds. - Labs CBC & Chem 7: 11/07/23 04:30 11/07/23 04:30 Labs: Abnormal Lab Results - Last 24 Hours (Table) 11/06/23 11/06/23 11/06/23 Range/Units 12:04 12:44 17:18 WBC (3.8-10.6) k/uL RBC (4.30-5.90) m/uL Hgb (13.0-17.5) gm/dL Hct (39.0-53.0) % MCHC (31.0-37.0) g/dL RDW (11.5-15.5) % Plt Count (150-450) k/uL Neutrophils # (1.3-7.7) k/uL Lymphocytes # (1.0-4.8) k/uL ABG pCO2 (35-45) mmHg ABG O2 Saturation (94-97) % Potassium (3.5-5.1) mmol/L Chloride (98-107) mmol/L Carbon Dioxide (22-30) mmol/L BUN (9-20) mg/dL Creatinine (0.66-1.25) mg/dL Glucose (74-99) mg/dL POC Glucose (mg/dL) 112 H 155 H (70-110) mg/dL Calcium (8.4-10.2) mg/dL Total Bilirubin (0.2-1.3) mg/dL Creatine Kinase 43 L (55-170) U/L Total Protein (6.3-8.2) g/dL Albumin (3.5-5.0) g/dL Urine Protein (Negative) Urine Blood (Negative) Ur Leukocyte Esterase (Negative) Urine WBC (0-5) /hpf Amorphous Sediment (None) /hpf Urine Bacteria (None) /hpf Hyaline Casts (0-2) /lpf Urine Mucus (None) /hpf 11/07/23 11/07/23 11/07/23 Range/Units 03:22 04:24 04:30 WBC 21.1 H (3.8-10.6) k/uL RBC 2.80 L (4.30-5.90) m/uL Hgb 7.1 L (13.0-17.5) gm/dL Hct 23.7 L (39.0-53.0) % MCHC 30.2 L (31.0-37.0) g/dL RDW 24.6 H (11.5-15.5) % Plt Count 477 H (150-450) k/uL Neutrophils # 19.9 H (1.3-7.7) k/uL Lymphocytes # 0.6 L (1.0-4.8) k/uL ABG pCO2 33 L (35-45) mmHg ABG O2 Saturation 97.1 H (94-97) % Potassium (3.5-5.1) mmol/L Chloride (98-107) mmol/L Carbon Dioxide (22-30) mmol/L BUN (9-20) mg/dL Creatinine (0.66-1.25) mg/dL Glucose (74-99) mg/dL POC Glucose (mg/dL) (70-110) mg/dL Calcium (8.4-10.2) mg/dL Total Bilirubin (0.2-1.3) mg/dL Creatine Kinase (55-170) U/L Total Protein (6.3-8.2) g/dL Albumin (3.5-5.0) g/dL Urine Protein Trace H (Negative) Urine Blood Small H (Negative) Ur Leukocyte Esterase Trace H (Negative) Urine WBC 13 H (0-5) /hpf Amorphous Sediment Rare H (None) /hpf Urine Bacteria Occasional H (None) /hpf Hyaline Casts 4 H (0-2) /lpf Urine Mucus Rare H (None) /hpf 11/07/23 Range/Units 04:30 WBC (3.8-10.6) k/uL RBC (4.30-5.90) m/uL Hgb (13.0-17.5) gm/dL Hct (39.0-53.0) % MCHC (31.0-37.0) g/dL RDW (11.5-15.5) % Plt Count (150-450) k/uL Neutrophils # (1.3-7.7) k/uL Lymphocytes # (1.0-4.8) k/uL ABG pCO2 (35-45) mmHg ABG O2 Saturation (94-97) % Potassium 3.3 L (3.5-5.1) mmol/L Chloride 108 H (98-107) mmol/L Carbon Dioxide 20 L (22-30) mmol/L BUN 53 H (9-20) mg/dL Creatinine 2.84 H (0.66-1.25) mg/dL Glucose 147 H (74-99) mg/dL POC Glucose (mg/dL) (70-110) mg/dL Calcium 6.8 L (8.4-10.2) mg/dL Total Bilirubin 1.4 H (0.2-1.3) mg/dL Creatine Kinase (55-170) U/L Total Protein 4.7 L (6.3-8.2) g/dL Albumin 2.0 L (3.5-5.0) g/dL Urine Protein (Negative) Urine Blood (Negative) Ur Leukocyte Esterase (Negative) Urine WBC (0-5) /hpf Amorphous Sediment (None) /hpf Urine Bacteria (None) /hpf Hyaline Casts (0-2) /lpf Urine Mucus (None) /hpf Microbiology - Last 24 Hours (Table) 11/05/23 20:30 Gram Stain - Preliminary Sputum 11/05/23 16:40 Blood Culture - Preliminary Blood 11/03/23 15:10 Anaerobic Culture - Preliminary Other - Other Doreen albicans 11/03/23 15:15 Gram Stain - Preliminary Other - Other Wound Culture - Preliminary Pseudomonas aeruginosa Morganella morganii Enterococcus faecalis Assessment and Plan Plan: Perforated gastric ulcer and pneumoperitoneum, status post exploratory l aparotomy with gastric ulcer repair with modified Jasvir patch on 11/05/2023, the patient is postop day #2 Acute hypoxic respiratory failure with bilateral lower lobe consolidation, consider possibility of pneumonia/effusion left worse than right. Septic shock with hypotension and shock, currently requiring vasopressors in the form of norepinephrine. Pressor requirements have dropped significantly and the patient is currently on low-dose norepinephrine at 0.05 mcg/kg/min Sepsis and septic shock Severe nonanion gap metabolic acidosis, received 3 amp sodium bicarb, running at a rate of 125 cc an hour Bilateral lower extremity wounds/cellulitis, status-post debridement on 11/03/2023. Wounds positive for polymicrobial organisms including Pseudomonas aeruginosa, MRSA, Enterococcus faecalis. Antibiotics being directed by infectious disease specialist Peripheral vascular disease, with recent history of femoral popliteal artery bypass on 06/06/2023, subsequently, developing wound infection and dehiscence, undergoing multiple excisional debridements since then. Atrial fibrillation with controlled ventricular response Normocytic, normochromic anemia Acute leukocytosis Acute kidney injury secondary to hypotension and ATN, nonoliguric and the patient has a positive urine output. Nevertheless, the fluid balance has been positive at least 4 L over the past 24 hours. History of hypertension History of hyperlipidemia History of coronary artery disease with previous stent placement History of AAA with previous endovascular repair History of alcoholism Chronic ongoing tobacco dependence Plan Continue vent support, no ventilator changes for today Keep the patient on propofol for now. The patient will be given a sedation holiday for later stage Continue IV fluids to 75 cc an hour and this in the form of bicarb infusion Wean off pressors and discontinue today Keep the patient on same antibiotic coverage to include a combination of daptomycin, Eraxis and Zosyn Keep the patient NPO. Will discuss feeding with general surgery. Prefer enteral nutrition once clearance obtained from general surgery. Monitor hemodynamics Monitor renal function Condition is obviously critical and will continue to follow make further recommendations based on progress. This evaluation was done more than 30 minutes. Time with Patient: Greater than 30
--- NOTE | 2023-11-07 13:33 | P.PN ---
Subjective Progress Note Date: 11/07/23 Patient jake on the ventilator in the ICU. He has had some urine output. Abdomen is soft. Incision is clean dry intact. There is some serosanguineous ascites in the SANDY drain. Status post repair of perforated gastric ulcer with sepsis. Patient will continue receive supportive care. His prognosis is guarded. Objective - Vital Signs Vital signs: Vital Signs Temp 97.9 F 11/07/23 12:00 Pulse 98 11/07/23 12:06 Resp 19 11/07/23 12:00 BP 103/63 11/06/23 03:00 Pulse Ox 100 11/07/23 12:00 FiO2 35 11/07/23 12:01 Intake & Output 11/06/23 11/07/23 11/07/23 18:59 06:59 18:59 Intake Total 2953.359 3349.396 1386.441 Output Total 285 1535 1250 Balance 2668.359 1814.396 136.441 Weight 94.1 kg Intake: IV 2700 2600 1200 Anidulafungin 200 mg In 100 Sodium Chloride 0.9% 200 ml @ 84 mls/hr IVPB ONCE ONE Rx#:[id number] DAPTOmycin 500 mg In 50 Sodium Chloride 0.9% 50 ml @ 100 mls/hr IVPB Q24HR [facility] Rx#:[id number] Dextrose 5% in Water 1, 1000 1500 750 000 ml @ 125 mls/hr IV . Q9H12M [facility] with Sodium Bicarb (1 Meq/ml) 150 ml Rx#:[id number] Lactated Ringers 1,000 ml 500 @ 125 mls/hr IV .Q8H [facility] Rx#:[id number] Lactated Ringers 1,000 ml 1000 @ 999 mls/hr IV .Q1H1M ONE Rx#:[id number] Piperacillin-Tazobactam 3 100 1100 200 .375 gm In Sodium Chloride 0.9% 100 ml @ 25 mls/hr IVPB Q8HR [facility] Rx# :[id number] Potassium Chloride 20 meq 200 In Water For Injection 1 100ml.bag @ 50 mls/hr IVPB Q2H [facility] Rx#: [id number] Intake, IV Titration 253.359 749.396 186.441 Amount Norepinephrine 4 mg In 153.359 749.396 35.205 Sodium Chloride 0.9% 250 ml @ 0.03 MCG/KG/MIN 9. 851 mls/hr IV .Q24H [facility] Rx#:[id number] propofoL 1,000 mg In 100 151.236 Empty Bag 1 bag @ 15 MCG/ KG/MIN 7.757 mls/hr IV . [id number] [facility] Rx#:[id number] Output: Drainage 220 1000 630 Right 220 1000 630 Urine 65 535 620 Other: Voiding Method Indwelling Catheter Indwelling Catheter Indwelling Catheter ABP, PAP, CO, CI - Last Documented Arterial Blood Pressure 98/50 - Labs CBC & Chem 7: 11/07/23 04:30 11/07/23 04:30 Labs: Abnormal Lab Results - Last 24 Hours (Table) 11/06/23 11/07/23 11/07/23 Range/Units 17:18 03:22 04:24 WBC (3.8-10.6) k/uL RBC (4.30-5.90) m/uL Hgb (13.0-17.5) gm/dL Hct (39.0-53.0) % MCHC (31.0-37.0) g/dL RDW (11.5-15.5) % Plt Count (150-450) k/uL Neutrophils # (1.3-7.7) k/uL Lymphocytes # (1.0-4.8) k/uL ABG pCO2 33 L (35-45) mmHg ABG O2 Saturation 97.1 H (94-97) % Potassium (3.5-5.1) mmol/L Chloride (98-107) mmol/L Carbon Dioxide (22-30) mmol/L BUN (9-20) mg/dL Creatinine (0.66-1.25) mg/dL Glucose (74-99) mg/dL POC Glucose (mg/dL) 155 H (70-110) mg/dL Calcium (8.4-10.2) mg/dL Total Bilirubin (0.2-1.3) mg/dL Total Protein (6.3-8.2) g/dL Albumin (3.5-5.0) g/dL Urine Protein Trace H (Negative) Urine Blood Small H (Negative) Ur Leukocyte Esterase Trace H (Negative) Urine WBC 13 H (0-5) /hpf Amorphous Sediment Rare H (None) /hpf Urine Bacteria Occasional H (None) /hpf Hyaline Casts 4 H (0-2) /lpf Urine Mucus Rare H (None) /hpf 11/07/23 11/07/23 11/07/23 Range/Units 04:30 04:30 12:17 WBC 21.1 H (3.8-10.6) k/uL RBC 2.80 L (4.30-5.90) m/uL Hgb 7.1 L (13.0-17.5) gm/dL Hct 23.7 L (39.0-53.0) % MCHC 30.2 L (31.0-37.0) g/dL RDW 24.6 H (11.5-15.5) % Plt Count 477 H (150-450) k/uL Neutrophils # 19.9 H (1.3-7.7) k/uL Lymphocytes # 0.6 L (1.0-4.8) k/uL ABG pCO2 (35-45) mmHg ABG O2 Saturation (94-97) % Potassium 3.3 L (3.5-5.1) mmol/L Chloride 108 H (98-107) mmol/L Carbon Dioxide 20 L (22-30) mmol/L BUN 53 H (9-20) mg/dL Creatinine 2.84 H (0.66-1.25) mg/dL Glucose 147 H (74-99) mg/dL POC Glucose (mg/dL) 135 H (70-110) mg/dL Calcium 6.8 L (8.4-10.2) mg/dL Total Bilirubin 1.4 H (0.2-1.3) mg/dL Total Protein 4.7 L (6.3-8.2) g/dL Albumin 2.0 L (3.5-5.0) g/dL Urine Protein (Negative) Urine Blood (Negative) Ur Leukocyte Esterase (Negative) Urine WBC (0-5) /hpf Amorphous Sediment (None) /hpf Urine Bacteria (None) /hpf Hyaline Casts (0-2) /lpf Urine Mucus (None) /hpf Microbiology - Last 24 Hours (Table) 11/05/23 20:30 Gram Stain - Preliminary Sputum 11/05/23 16:40 Blood Culture - Preliminary Blood 11/03/23 15:10 Anaerobic Culture - Preliminary Other - Other Doreen albicans 11/03/23 15:15 Gram Stain - Preliminary Other - Other Wound Culture - Preliminary Pseudomonas aeruginosa Morganella morganii Enterococcus faecalis
--- NOTE | 2023-11-07 15:44 | P.PN ---
Subjective Progress Note Date: 11/06/23 Principal diagnosis: Reason for follow-up is bilateral lower extremity infected wounds and perforated peptic ulcer Patient is a 63-year-old male with a past medical history significant for hypertension hyperlipidemia coronary artery disease, PAD multiple vascular procedures including left femoral-tibial bypass and now has been dealing with the wound to the left lower extremity as well as wound to the right leg being managed in the outpatient setting by vascular surgery Center the hospital by the home care nurse concerning for worsening infection. Patient last wound culture positive for VRE and Pseudomonas. Patient is status post Sharp excisional debridement bilateral lower extremities along with cultures of the purulent material completed on 11/03/2023.Patient was taken to the OR 11/05/2023 found to have perforated gastric ulcer status post exploratory laparotomy repair of the perforated ulcer with modified Jasvir patch. On today's evaluation that is 11/06/2023, the patient continues to be afebrile, the patient is intubated on the vent FiO2 of 35% no significant purulent secretions through the ET patient is currently on pressor support to maintain his blood pressure no other changes reported by the nursing staff Patient white count is down to 27.8, creatinine is 2.43 Objective - Vital Signs Vital signs: Vital Signs Temp 98.7 F 11/06/23 08:00 Pulse 96 11/06/23 10:30 Resp 22 11/06/23 10:30 BP 103/63 11/06/23 03:00 Pulse Ox 100 11/06/23 10:30 FiO2 35 11/06/23 08:37 Intake & Output 11/05/23 11/06/23 11/06/23 18:59 06:59 18:59 Intake Total 2522.785 3169.136 1650 Output Total 225 550 0 Balance 2297.785 2619.136 1650 Weight 93 kg Intake: IV 2500 2675 1650 Anidulafungin 100 mg In 100 Sodium Chloride 0.9% 100 ml @ 84 mls/hr IVPB DAILY [facility] Rx#:[id number] Anidulafungin 200 mg In 100 Sodium Chloride 0.9% 200 ml @ 84 mls/hr IVPB ONCE ONE Rx#:[id number] Lactated Ringers 1,000 ml 1375 500 @ 125 mls/hr IV .Q8H [facility] Rx#:[id number] Lactated Ringers 1,000 ml 1000 @ 999 mls/hr IV .Q1H1M [facility] Rx#:[id number] Piperacillin-Tazobactam 3 200 50 .375 gm In Sodium Chloride 0.9% 100 ml @ 25 mls/hr IVPB Q8HR [facility] Rx# :[id number] Sodium Chloride 0.9% 1, 1000 000 ml @ 999 mls/hr IV . Q1H1M [facility] Rx#:[id number] Sodium Chloride 0.9% 2, 2000 000 ml @ 999 mls/hr IV . Q2H1M [facility] Rx#:[id number] Intake, IV Titration 22.785 494.136 Amount Norepinephrine 4 mg In 17.786 336.855 Sodium Chloride 0.9% 250 ml @ 0.03 MCG/KG/MIN 9. 851 mls/hr IV .Q24H [facility] Rx#:[id number] propofoL 1,000 mg In 4.999 157.281 Empty Bag 1 bag @ 15 MCG/ KG/MIN 7.757 mls/hr IV . [id number] [facility] Rx#:[id number] Output: Drainage 200 550 Right 200 550 Urine 0 0 0 Estimated Blood Loss 25 Other: Voiding Method Indwelling Catheter Indwelling Catheter Indwelling Catheter ABP, PAP, CO, CI - Last Documented Arterial Blood Pressure 113/51 - Exam GENERAL DESCRIPTION: Middle-age male l intubated on the vent RESPIRATORY SYSTEM: Unlabored breathing , decreased breath sounds at bases HEART: S1 S2 regular rate and rhythm , ABDOMEN: Soft , mild distention EXTREMITIES: Bilateral extremity wounds currently dressed no drainage - Labs CBC & Chem 7: 11/07/23 04:30 11/07/23 04:30 Labs: Abnormal Lab Results - Last 24 Hours (Table) 11/05/23 11/05/23 11/05/23 Range/Units 13:54 16:40 16:40 WBC 31.8 H (3.8-10.6) k/uL RBC 3.70 L (4.30-5.90) m/uL Hgb 9.4 L (13.0-17.5) gm/dL Hct 32.7 L (39.0-53.0) % MCHC 28.9 L (31.0-37.0) g/dL RDW 23.3 H (11.5-15.5) % Plt Count 647 H (150-450) k/uL Neutrophils # (1.3-7.7) k/uL Neutrophils # (Manual) 29.50 H (1.3-7.7) k/uL Lymphocytes # (1.0-4.8) k/uL ABG pH (7.35-7.45) ABG pO2 (83-108) mmHg ABG HCO3 (21-25) mmol/L ABG Total CO2 (19-24) mmol/L ABG O2 Saturation (94-97) % Sodium 135 L (137-145) mmol/L Chloride 112 H (98-107) mmol/L Carbon Dioxide 12 L (22-30) mmol/L BUN 53 H (9-20) mg/dL Creatinine 2.46 H (0.66-1.25) mg/dL Glucose 120 H (74-99) mg/dL POC Glucose (mg/dL) 119 H (70-110) mg/dL Calcium 7.5 L (8.4-10.2) mg/dL 11/05/23 11/06/23 11/06/23 Range/Units 17:54 00:48 04:38 WBC 27.8 H (3.8-10.6) k/uL RBC 3.14 L (4.30-5.90) m/uL Hgb 8.1 L (13.0-17.5) gm/dL Hct 27.2 L (39.0-53.0) % MCHC 29.9 L (31.0-37.0) g/dL RDW 24.4 H (11.5-15.5) % Plt Count 623 H (150-450) k/uL Neutrophils # 26.2 H (1.3-7.7) k/uL Neutrophils # (Manual) (1.3-7.7) k/uL Lymphocytes # 0.6 L (1.0-4.8) k/uL ABG pH 7.12 L* (7.35-7.45) ABG pO2 327 H (83-108) mmHg ABG HCO3 15 L (21-25) mmol/L ABG Total CO2 16 L (19-24) mmol/L ABG O2 Saturation 99.9 H (94-97) % Sodium (137-145) mmol/L Chloride (98-107) mmol/L Carbon Dioxide (22-30) mmol/L BUN (9-20) mg/dL Creatinine (0.66-1.25) mg/dL Glucose (74-99) mg/dL POC Glucose (mg/dL) 124 H (70-110) mg/dL Calcium (8.4-10.2) mg/dL 11/06/23 11/06/23 11/06/23 Range/Units 04:38 05:27 06:08 WBC (3.8-10.6) k/uL RBC (4.30-5.90) m/uL Hgb (13.0-17.5) gm/dL Hct (39.0-53.0) % MCHC (31.0-37.0) g/dL RDW (11.5-15.5) % Plt Count (150-450) k/uL Neutrophils # (1.3-7.7) k/uL Neutrophils # (Manual) (1.3-7.7) k/uL Lymphocytes # (1.0-4.8) k/uL ABG pH 7.31 L (7.35-7.45) ABG pO2 142 H (83-108) mmHg ABG HCO3 18 L (21-25) mmol/L ABG Total CO2 (19-24) mmol/L ABG O2 Saturation 99.2 H (94-97) % Sodium (137-145) mmol/L Chloride 114 H (98-107) mmol/L Carbon Dioxide 15 L (22-30) mmol/L BUN 54 H (9-20) mg/dL Creatinine 2.43 H (0.66-1.25) mg/dL Glucose 104 H (74-99) mg/dL POC Glucose (mg/dL) 111 H (70-110) mg/dL Calcium 7.2 L (8.4-10.2) mg/dL Microbiology - Last 24 Hours (Table) 11/03/23 15:10 Gram Stain - Final Other - Other Wound Culture - Final Pseudomonas aeruginosa Methicillin resist S. aureus 11/03/23 15:15 Gram Stain - Preliminary Other - Other Wound Culture - Preliminary Pseudomonas aeruginosa Morganella morganii Enterococcus faecalis 11/03/23 15:15 Anaerobic Culture - Preliminary Other - Other 11/03/23 15:10 Anaerobic Culture - Preliminary Other - Other Assessment and Plan (1) Bilateral lower leg cellulitis Current Visit: Yes Status: Acute Code(s): L03.116 - CELLULITIS OF LEFT LOWER LIMB; L03.115 - CELLULITIS OF RIGHT LOWER LIMB SNOMED Code(s): 125292530 (2) Open wound of both lower extremities Current Visit: Yes Status: Acute Code(s): S81.801A - UNSPECIFIED OPEN WOUND, RIGHT LOWER LEG, INITIAL ENCOUNTER; S81.802A - UNSPECIFIED OPEN WOUND, LEFT LOWER LEG, INITIAL ENCOUNTER SNOMED Code(s): 71174981 (3) Sepsis Current Visit: Yes Status: Acute Code(s): A41.9 - SEPSIS, UNSPECIFIED ORGANISM SNOMED Code(s): 72180431 Plan: 1patient presented to hospital with sepsis in this patient who did have a fever tachycardia elevated white count source is likely bilateral lower extremity wound and cellulitis with more extensive wound to the left lower extremity in this patient who did have a history of PAD and has multiple vascular procedure last wound culture done from the right leg has been Pseudomonas and VRE that was done on 10/03/2023, culture done this admission are growing Pseudomonas aeruginosa Enterococcus faecalis that is not VRE and MRSA 2patient is status post debridement and deep culture completed on 11/03/2023 which did grow multiple pathogen including Pseudomonas Morganella Enterococcus faecalis and MRSA 3patient did have a perforated peptic ulcer status post laparotomy and modified Jasvir patch 4-patient to continue with the daptomycin, Zosyn and Eraxis and monitor clinical course closely Dictation was produced using [employer] dictation software. please excuse any grammatical, word or spelling errors.
--- NOTE | 2023-11-07 15:45 | P.PN ---
Subjective Progress Note Date: 11/07/23 Principal diagnosis: Reason for follow-up is bilateral lower extremity infected wounds and perforated peptic ulcer Patient is a 63-year-old male with a past medical history significant for hypertension hyperlipidemia coronary artery disease, PAD multiple vascular procedures including left femoral-tibial bypass and now has been dealing with the wound to the left lower extremity as well as wound to the right leg being managed in the outpatient setting by vascular surgery Center the hospital by the home care nurse concerning for worsening infection. Patient last wound culture positive for VRE and Pseudomonas. Patient is status post Sharp excisional debridement bilateral lower extremities along with cultures of the purulent material completed on 11/03/2023.Patient was taken to the OR 11/05/2023 found to have perforated gastric ulcer status post exploratory laparotomy repair of the perforated ulcer with modified Jasvir patch. On today's evaluation that is 11/07/2023, Patient is afebrile patient is currently on the ventilator FiO2 stable at 35% no significant purulent secretion through the ET, patient did have NG for suction requiring less pressor support compared to yesterday no other changes reported. Patient white count is 21.1 creatinine is 2.84 Objective - Vital Signs Vital signs: Vital Signs Temp 98.4 F 11/07/23 08:00 Pulse 98 11/07/23 12:06 Resp 20 11/07/23 11:30 BP 103/63 11/06/23 03:00 Pulse Ox 100 11/07/23 11:30 FiO2 35 11/07/23 12:01 Intake & Output 11/06/23 11/07/23 11/07/23 18:59 06:59 18:59 Intake Total 2953.359 3349.396 1249.203 Output Total 285 1535 1150 Balance 2668.359 1814.396 99.203 Weight 94.1 kg Intake: IV 2700 2600 1075 Anidulafungin 200 mg In 100 Sodium Chloride 0.9% 200 ml @ 84 mls/hr IVPB ONCE [facility] Rx#:[id number] DAPTOmycin 500 mg In 50 Sodium Chloride 0.9% 50 ml @ 100 mls/hr IVPB Q24HR [facility] Rx#:[id number] Dextrose 5% in Water 1, 1000 1500 625 000 ml @ 125 mls/hr IV . Q9H12M [facility] with Sodium Bicarb (1 Meq/ml) 150 ml Rx#:[id number] Lactated Ringers 1,000 ml 500 @ 125 mls/hr IV .Q8H [facility] Rx#:[id number] Lactated Ringers 1,000 ml 1000 @ 999 mls/hr IV .Q1H1M [facility] Rx#:[id number] Piperacillin-Tazobactam 3 100 1100 200 .375 gm In Sodium Chloride 0.9% 100 ml @ 25 mls/hr IVPB Q8HR [facility] Rx# :[id number] Potassium Chloride 20 meq 200 In Water For Injection 1 100ml.bag @ 50 mls/hr IVPB Q2H [facility] Rx#: [id number] Intake, IV Titration 253.359 749.396 174.203 Amount Norepinephrine 4 mg In 153.359 749.396 35.205 Sodium Chloride 0.9% 250 ml @ 0.03 MCG/KG/MIN 9. 851 mls/hr IV .Q24H [facility] Rx#:[id number] propofoL 1,000 mg In 100 138.998 Empty Bag 1 bag @ 15 MCG/ KG/MIN 7.757 mls/hr IV . [id number] [facility] Rx#:[id number] Output: Drainage 220 1000 560 Right 220 1000 560 Urine 65 535 590 Other: Voiding Method Indwelling Catheter Indwelling Catheter Indwelling Catheter ABP, PAP, CO, CI - Last Documented Arterial Blood Pressure 104/55 - Exam GENERAL DESCRIPTION: Middle-age male l intubated on the vent RESPIRATORY SYSTEM: Unlabored breathing , decreased breath sounds at bases HEART: S1 S2 regular rate and rhythm , ABDOMEN: Soft , mild distention EXTREMITIES: Bilateral extremity wounds currently dressed no drainage - Labs CBC & Chem 7: 11/07/23 04:30 11/07/23 04:30 Labs: Abnormal Lab Results - Last 24 Hours (Table) 11/06/23 11/06/23 11/06/23 Range/Units 12:04 12:44 17:18 WBC (3.8-10.6) k/uL RBC (4.30-5.90) m/uL Hgb (13.0-17.5) gm/dL Hct (39.0-53.0) % MCHC (31.0-37.0) g/dL RDW (11.5-15.5) % Plt Count (150-450) k/uL Neutrophils # (1.3-7.7) k/uL Lymphocytes # (1.0-4.8) k/uL ABG pCO2 (35-45) mmHg ABG O2 Saturation (94-97) % Potassium (3.5-5.1) mmol/L Chloride (98-107) mmol/L Carbon Dioxide (22-30) mmol/L BUN (9-20) mg/dL Creatinine (0.66-1.25) mg/dL Glucose (74-99) mg/dL POC Glucose (mg/dL) 112 H 155 H (70-110) mg/dL Calcium (8.4-10.2) mg/dL Total Bilirubin (0.2-1.3) mg/dL Creatine Kinase 43 L (55-170) U/L Total Protein (6.3-8.2) g/dL Albumin (3.5-5.0) g/dL Urine Protein (Negative) Urine Blood (Negative) Ur Leukocyte Esterase (Negative) Urine WBC (0-5) /hpf Amorphous Sediment (None) /hpf Urine Bacteria (None) /hpf Hyaline Casts (0-2) /lpf Urine Mucus (None) /hpf 11/07/23 11/07/23 11/07/23 Range/Units 03:22 04:24 04:30 WBC 21.1 H (3.8-10.6) k/uL RBC 2.80 L (4.30-5.90) m/uL Hgb 7.1 L (13.0-17.5) gm/dL Hct 23.7 L (39.0-53.0) % MCHC 30.2 L (31.0-37.0) g/dL RDW 24.6 H (11.5-15.5) % Plt Count 477 H (150-450) k/uL Neutrophils # 19.9 H (1.3-7.7) k/uL Lymphocytes # 0.6 L (1.0-4.8) k/uL ABG pCO2 33 L (35-45) mmHg ABG O2 Saturation 97.1 H (94-97) % Potassium (3.5-5.1) mmol/L Chloride (98-107) mmol/L Carbon Dioxide (22-30) mmol/L BUN (9-20) mg/dL Creatinine (0.66-1.25) mg/dL Glucose (74-99) mg/dL POC Glucose (mg/dL) (70-110) mg/dL Calcium (8.4-10.2) mg/dL Total Bilirubin (0.2-1.3) mg/dL Creatine Kinase (55-170) U/L Total Protein (6.3-8.2) g/dL Albumin (3.5-5.0) g/dL Urine Protein Trace H (Negative) Urine Blood Small H (Negative) Ur Leukocyte Esterase Trace H (Negative) Urine WBC 13 H (0-5) /hpf Amorphous Sediment Rare H (None) /hpf Urine Bacteria Occasional H (None) /hpf Hyaline Casts 4 H (0-2) /lpf Urine Mucus Rare H (None) /hpf 11/07/23 Range/Units 04:30 WBC (3.8-10.6) k/uL RBC (4.30-5.90) m/uL Hgb (13.0-17.5) gm/dL Hct (39.0-53.0) % MCHC (31.0-37.0) g/dL RDW (11.5-15.5) % Plt Count (150-450) k/uL Neutrophils # (1.3-7.7) k/uL Lymphocytes # (1.0-4.8) k/uL ABG pCO2 (35-45) mmHg ABG O2 Saturation (94-97) % Potassium 3.3 L (3.5-5.1) mmol/L Chloride 108 H (98-107) mmol/L Carbon Dioxide 20 L (22-30) mmol/L BUN 53 H (9-20) mg/dL Creatinine 2.84 H (0.66-1.25) mg/dL Glucose 147 H (74-99) mg/dL POC Glucose (mg/dL) (70-110) mg/dL Calcium 6.8 L (8.4-10.2) mg/dL Total Bilirubin 1.4 H (0.2-1.3) mg/dL Creatine Kinase (55-170) U/L Total Protein 4.7 L (6.3-8.2) g/dL Albumin 2.0 L (3.5-5.0) g/dL Urine Protein (Negative) Urine Blood (Negative) Ur Leukocyte Esterase (Negative) Urine WBC (0-5) /hpf Amorphous Sediment (None) /hpf Urine Bacteria (None) /hpf Hyaline Casts (0-2) /lpf Urine Mucus (None) /hpf Microbiology - Last 24 Hours (Table) 11/05/23 20:30 Gram Stain - Preliminary Sputum 11/05/23 16:40 Blood Culture - Preliminary Blood 11/03/23 15:10 Anaerobic Culture - Preliminary Other - Other Doreen albicans 11/03/23 15:15 Gram Stain - Preliminary Other - Other Wound Culture - Preliminary Pseudomonas aeruginosa Morganella morganii Enterococcus faecalis Assessment and Plan (1) Bilateral lower leg cellulitis Current Visit: Yes Status: Acute Code(s): L03.116 - CELLULITIS OF LEFT LOWER LIMB; L03.115 - CELLULITIS OF RIGHT LOWER LIMB SNOMED Code(s): 989235263 (2) Open wound of both lower extremities Current Visit: Yes Status: Acute Code(s): S81.801A - UNSPECIFIED OPEN WOUND, RIGHT LOWER LEG, INITIAL ENCOUNTER; S81.802A - UNSPECIFIED OPEN WOUND, LEFT LOWER LEG, INITIAL ENCOUNTER SNOMED Code(s): 72747333 (3) Sepsis Current Visit: Yes Status: Acute Code(s): A41.9 - SEPSIS, UNSPECIFIED ORGANISM SNOMED Code(s): 32188130 Plan: 1patient presented to hospital with sepsis in this patient who did have a fever tachycardia elevated white count source is likely bilateral lower extremity wound and cellulitis with more extensive wound to the left lower extremity in this patient who did have a history of PAD and has multiple vascular procedure last wound culture done from the right leg has been Pseudomonas and VRE that was done on 10/03/2023, culture done this admission are growing Pseudomonas aeruginosa Enterococcus faecalis that is not VRE and MRSA 2patient is status post debridement and deep culture completed on 11/03/2023 which did grow multiple pathogen including Pseudomonas Morganella Enterococcus faecalis and MRSA 3patient did have a perforated peptic ulcer status post laparotomy and modified Jasvir patch 4-patient is afebrile white count is trending down requiring less pressor support today, to continue with the daptomycin, Zosyn and Eraxis and monitor clinical course closely Dictation was produced using [employer] dictation software. please excuse any grammatical, word or spelling errors. Time with Patient: Less than 30
[2023-11-07 18:18] LABS: Glucose,Whole Blood 122 mg/dL (70-110)
[2023-11-07] MEDS: DEXTROSE 5% IN WATER 1,000 ML with SODIUM BICARB (1 MEQ/ML) 150 ML IV SCH (18:31)
--- NOTE | 2023-11-07 18:45 | P.PN ---
Subjective Progress Note Date: 11/07/23 H&P Date: 10/30/23 Chief Complaint: Worsening bilateral lower legs, increased pain, edema and "split open" This is 63-year-old gentleman with past medical history significant for PAD, multiple vascular procedures including femoral-tibial bypass followed by wound development, dehiscence of his left lower extremity, status post recent excisional debridement of the left lower leg wound with skin substitute placement, excisional debridement of the left great toe wound and excisional debridement of right lower leg wound x 2 on 10/03/[address] Inman, vascular surgery, presented to the ER with worsening bilateral lower extremity pain, edema, reports right lower extremity "split open" over the last week with serous drainage. His visiting nurse evaluated patient on Monday recommending ER. Denies any chest pain, palpitations or shortness of breath. Denies nausea vomiting or diarrhea. Denies abdominal pain. Denies fever or chills. Denies lightheadedness, dizziness or focal deficits. Wound and blood cultures obtained, initiated on vancomycin in the ER. Tmax 101, WBC 16.3, increased to 19.67, CRP 12.6 .hemoglobin 7.7, platelets 468. Sodium 129, potassium 3.3, bicarb 19, BUN 10, creatinine 0.7. Lactic acid 2.2, improved with IV fluid hy dration, 1.1. Magnesium 1-repeat level ordered stat. 10/31/2023 Tmax 101. WBC decreased to 15.1. reports decreased appetite. Sodium decreased to 127, renal function stable. Potassium 3.9, magnesium 1.2 - supplements ordered. Positive pain of bilateral lower extremities. Evaluated by infectious disease, antibiotics adjusted to Zyvox and meropenem. Denies chest pain, palpitations or shortness of breath. 11/01/2023 wound cultures growing Pseudomonas and Enterococcus faecalis, vancomycin and penicillin sensitive, afebrile, WBC up to 20.06, antibiotics further adjusted to Zosyn and daptomycin. Renal function stable. IV fluids adjusted yesterday to D5.9 with sodium improved up to 130. 11/02/2023 maintained on IV antibiotics as per ID. Afebrile, WBC decreased to 17.3. Hemoglobin 9.1, platelets 523. Sodium 131 on IV fluids of D5.9. Potassium 3.8, magnesium 1.8, creatinine 0.9. Pain controlled , denies chest pain, palpitations or shortness of breath, maintaining O2 sats in the high 90s on room air. Scheduled for debridement and deep cultures tomorrow with vascular surgery. 11/07/2023 remains vent dependent with FiO2 35%/5 of PEEP. Maintained on diprovan, Levophed and bicarb drips. Bicarb 20, BUN 53, creatinine 2.84. continues on daptomycin, Eraxis, Zosyn. WBC 21, afebrile. Receiving potassium supplementation for potassium 3.3. Hemoglobin 7.1, platelets 477. Objective - Vital Signs Vital signs: Vital Signs Temp 97.9 F 11/07/23 12:00 Pulse 99 11/07/23 15:58 Resp 20 11/07/23 15:15 BP 103/63 11/06/23 03:00 Pulse Ox 98 11/07/23 15:15 FiO2 35 11/07/23 15:47 Intake & Output 11/06/23 11/07/23 11/07/23 18:59 06:59 18:59 Intake Total 2953.359 3349.396 1902.172 Output Total 285 1535 1545 Balance 2668.359 1814.396 357.172 Weight 94.1 kg 94.1 kg Intake: IV 2700 2600 1575 Anidulafungin 200 mg In 100 Sodium Chloride 0.9% 200 ml @ 84 mls/hr IVPB ONCE ONE Rx#:[id number] DAPTOmycin 500 mg In 50 Sodium Chloride 0.9% 50 ml @ 100 mls/hr IVPB Q24HR [facility] Rx#:[id number] Dextrose 5% in Water 1, 1000 1500 1125 000 ml @ 125 mls/hr IV . Q9H12M [facility] with Sodium Bicarb (1 Meq/ml) 150 ml Rx#:[id number] Lactated Ringers 1,000 ml 500 @ 125 mls/hr IV .Q8H [facility] Rx#:[id number] Lactated Ringers 1,000 ml 1000 @ 999 mls/hr IV .Q1H1M ONE Rx#:[id number] Piperacillin-Tazobactam 3 100 1100 200 .375 gm In Sodium Chloride 0.9% 100 ml @ 25 mls/hr IVPB Q8HR [facility] Rx# :[id number] Potassium Chloride 20 meq 200 In Water For Injection 1 100ml.bag @ 50 mls/hr IVPB Q2H [facility] Rx#: [id number] Intake, IV Titration 253.359 749.396 327.172 Amount Norepinephrine 4 mg In 153.359 749.396 103.887 Sodium Chloride 0.9% 250 ml @ 0.03 MCG/KG/MIN 9. 851 mls/hr IV .Q24H [facility] Rx#:[id number] propofoL 1,000 mg In 100 223.285 Empty Bag 1 bag @ 15 MCG/ KG/MIN 7.757 mls/hr IV . [id number] [facility] Rx#:[id number] Output: Drainage 220 1000 750 Right 220 1000 750 Urine 65 535 795 Other: Voiding Method Indwelling Catheter Indwelling Catheter Indwelling Catheter ABP, PAP, CO, CI - Last Documented Arterial Blood Pressure 100/52 - Exam PHYSICAL EXAM: VITAL SIGNS: [As above] GENERAL: Sedated and intubated on mechanical ventilation HEENT: Normocephalic, atraumatic ,conjunctivae normal. NECK: Supple, no JVD. CARDIOVASCULAR: S1, S2 regular. No murmur RESPIRATION: Unlabored, equal air entry breath sounds diminished in the bases. ABDOMEN: Soft, nondistended, status post surgery, wound VAC, SANDY drain with serosanguineous drainage. LEGS: Bilateral lower extremities' Abhijeet wrap dressings clean dry and intact NERVOUS SYSTEM: Unable to evaluate at this time, sedated and intubated Skin: Warm and dry, no rash Microbiology 11/05/23 20:30 Sputum Gram Stain - Preliminary 11/05/23 20:30 Sputum Sputum Culture - Preliminary Gram Neg Bacilli Doreen albicans 11/05/23 16:40 Blood Blood Culture - Preliminary 11/03/23 15:10 Other - Other Anaerobic Culture - Preliminary Doreen albicans 11/03/23 15:15 Other - Other Gram Stain - Preliminary 11/03/23 15:15 Other - Other Wound Culture - Preliminary Pseudomonas aeruginosa Morganella morganii Enterococcus faecalis 11/03/23 15:10 Other - Other Gram Stain - Final 11/03/23 15:10 Other - Other Wound Culture - Final Pseudomonas aeruginosa Methicillin resist S. aureus 11/03/23 15:15 Other - Other Anaerobic Culture - Preliminary 10/29/23 17:45 Blood Blood Culture - Final 10/29/23 18:00 Blood Blood Culture - Final 10/29/23 20:33 Leg - Left Anaerobic Culture - Final 10/29/23 20:33 Leg - Left Gram Stain - Final 10/29/23 20:33 Leg - Left Wound Culture - Final Pseudomonas aeruginosa Enterococcus faecalis Methicillin resist S. aureus - Labs CBC & Chem 7: 11/07/23 04:30 11/07/23 15:15 Labs: Abnormal Lab Results - Last 24 Hours (Table) 11/06/23 11/07/23 11/07/23 Range/Units 17:18 03:22 04:24 WBC (3.8-10.6) k/uL RBC (4.30-5.90) m/uL Hgb (13.0-17.5) gm/dL Hct (39.0-53.0) % MCHC (31.0-37.0) g/dL RDW (11.5-15.5) % Plt Count (150-450) k/uL Neutrophils # (1.3-7.7) k/uL Lymphocytes # (1.0-4.8) k/uL ABG pCO2 33 L (35-45) mmHg ABG O2 Saturation 97.1 H (94-97) % Potassium (3.5-5.1) mmol/L Chloride (98-107) mmol/L Carbon Dioxide (22-30) mmol/L BUN (9-20) mg/dL Creatinine (0.66-1.25) mg/dL Glucose (74-99) mg/dL POC Glucose (mg/dL) 155 H (70-110) mg/dL Calcium (8.4-10.2) mg/dL Total Bilirubin (0.2-1.3) mg/dL Total Protein (6.3-8.2) g/dL Albumin (3.5-5.0) g/dL Urine Protein Trace H (Negative) Urine Blood Small H (Negative) Ur Leukocyte Esterase Trace H (Negative) Urine WBC 13 H (0-5) /hpf Amorphous Sediment Rare H (None) /hpf Urine Bacteria Occasional H (None) /hpf Hyaline Casts 4 H (0-2) /lpf Urine Mucus Rare H (None) /hpf 11/07/23 11/07/23 11/07/23 Range/Units 04:30 04:30 12:17 WBC 21.1 H (3.8-10.6) k/uL RBC 2.80 L (4.30-5.90) m/uL Hgb 7.1 L (13.0-17.5) gm/dL Hct 23.7 L (39.0-53.0) % MCHC 30.2 L (31.0-37.0) g/dL RDW 24.6 H (11.5-15.5) % Plt Count 477 H (150-450) k/uL Neutrophils # 19.9 H (1.3-7.7) k/uL Lymphocytes # 0.6 L (1.0-4.8) k/uL ABG pCO2 (35-45) mmHg ABG O2 Saturation (94-97) % Potassium 3.3 L (3.5-5.1) mmol/L Chloride 108 H (98-107) mmol/L Carbon Dioxide 20 L (22-30) mmol/L BUN 53 H (9-20) mg/dL Creatinine 2.84 H (0.66-1.25) mg/dL Glucose 147 H (74-99) mg/dL POC Glucose (mg/dL) 135 H (70-110) mg/dL Calcium 6.8 L (8.4-10.2) mg/dL Total Bilirubin 1.4 H (0.2-1.3) mg/dL Total Protein 4.7 L (6.3-8.2) g/dL Albumin 2.0 L (3.5-5.0) g/dL Urine Protein (Negative) Urine Blood (Negative) Ur Leukocyte Esterase (Negative) Urine WBC (0-5) /hpf Amorphous Sediment (None) /hpf Urine Bacteria (None) /hpf Hyaline Casts (0-2) /lpf Urine Mucus (None) /hpf Microbiology - Last 24 Hours (Table) 11/05/23 20:30 Gram Stain - Preliminary Sputum Sputum Culture - Preliminary Gram Neg Bacilli Doreen albicans 11/05/23 16:40 Blood Culture - Preliminary Blood 11/03/23 15:10 Anaerobic Culture - Preliminary Other - Other Doreen albicans 11/03/23 15:15 Gram Stain - Preliminary Other - Other Wound Culture - Preliminary Pseudomonas aeruginosa Morganella morganii Enterococcus faecalis Assessment and Plan Assessment: Sepsis secondary to infected bilateral lower extremity wounds, cellulitis, recent excisional debridement of left lower leg wound with skin substitute placement, excisional debridement of the left great toe wound and excisional debridement of the right lower leg wound x 2 on 10/03/[address] Inman , vascular surgery. Cultures currently growing Pseudomonas aeruginosa and Enterococcus faecalis and MRSA. Status post debridement with deep cultures 830 reporting Pseudomonas Morganelli, Enterococcus faecalis and MRSA Perforated peptic ulcer and pneumoperitoneum status post exploratory laparotomy with gastric ulcer repair, modified Jasvir patch on 11/05/2023 Acute hypoxic respiratory failure, mechanical ventilator dependent Septic shock, requiring vasopressors Acute kidney injury, ATN secondary to sepsis, hypotension Metabolic acidosis secondary to the above, currently on bicarb drip History of Pseudomonas and VRE on last wound culture of left leg 10/03/2023, Lactic acidosis secondary to the above History of Left lower extremity skin dehiscence and wound infection,MSSA, status post excisional debridement and wound VAC. Left great toe ischemia status post excisional debridement History of left femoral tibial bypass secondary to critical limb ischemia History of aortic aneurysm with endovascular repair; Chronic Paroximal atrial fibrillation CAD, history of stent placement Essential hypertension Hyperlipidemia Nicotine dependence Daily alcohol use Noncompliance with medication regimen, patient is high risk for readmission. Iron deficient anemia Hypokalemia Hypomagnesemia Hyponatremia Plan: Continue current medication regimen, monitoring and symptomatic treatment. ICU management as per pickling tank operator;IV fluids, pressor support.antibiotics as per infectious disease. Multiple consults following. Prognosis guarded given multiple complex medical issues. The impression and plan of care has been dictated as directed. : I performed a history and examination of this patient, discussed the same with the dictator. I agree with the dictator's note ,documented as a scribe. Any additional findings or plans will be noted.
[2023-11-08 04:59] LABS: Anisocytosis Marked; Basophils % (A) 0 %; Eosinophils # (A) 0.1 k/uL (0-0.7); Eosinophils % (A) 1 %; HCT 22.7 % (39.0-53.0); Hypochromasia Moderate; Lymphocytes # (A) 0.5 k/uL (1.0-4.8); Lymphocytes % (A) 4 %; MCH 25.9 pg (25.0-35.0); MCV 83.6 fL (80.0-100.0); Microcytosis Slight; Monocytes # (A) 0.4 k/uL (0-1.0); Monocytes % (A) 3 %; Neutrophils # (A) 11.7 k/uL (1.3-7.7); Neutrophils % (A) 92 %; Platelet Count 316 k/uL (150-450); RBC 2.72 m/uL (4.30-5.90); RDW 24.1 % (11.5-15.5); WBC 12.8 k/uL (3.8-10.6)
[2023-11-08 05:21] LABS: African American GFR (CKD) 24 (>60 ml/min/1.73 sqM); Anion Gap 8 mmol/L; Blood Urea Nitrogen 52 mg/dL (9-20); Carbon Dioxide 23 mmol/L (22-30); Chloride 106 mmol/L (98-107); Glucose 104 mg/dL (74-99); Non-African American GFR(CKD) 20 (>60 ml/min/1.73 sqM); Potassium 3.9 mmol/L (3.5-5.1); Sodium 137 mmol/L (137-145)
[2023-11-08 06:04] LABS: Calcium 6.4 mg/dL (8.4-10.2)
[2023-11-08 06:15] LABS: ABG Base Excess 0.3 mmol/L; ABG HCO3 24 mmol/L (21-25); ABG Oxygen Saturation 99.8 % (94-97); ABG PCO2 33 mmHg (35-45); ABG PH 7.47 (7.35-7.45); ABG PO2 145 mmHg (83-108); ABG TCO2 25 mmol/L (19-24); Allen Test Performed? Yes
[2023-11-08] MEDS: CALCIUM GLUCONATE IN NACL 1 GM in SALINE 1 100ML.BAG IVPB ONE (06:53)
--- NOTE | 2023-11-08 07:15 | XR ---
EXAMINATION TYPE: XR chest 1V portable DATE OF EXAM: 11/08/2023 5:16 AM CLINICAL INDICATION: Male, 63 years old with history of Tube placement; [facility] COMPARISON: Chest radiograph from one day prior. TECHNIQUE: XR chest 1V portable Frontal view of the chest. FINDINGS: Lungs/Pleura: Bibasilar streaky atelectasis. Blunting Left costophrenic angle There is no evidence of right pleural effusion, focal consolidation, or pneumothorax. Pulmonary vascularity: Unremarkable. Heart/mediastinum: Cardiomediastinal silhouette is unremarkable. Musculoskeletal: No acute osseous pathology. Other findings: None Lines/Tubes: Endotracheal tube with distal tip 3.2 cm above the prince. Nasogastric tube with its distal tip and side-port projecting under the diaphragm. Right internal jugular central venous catheter with distal tip at the cavoatrial junction. IMPRESSION: Stable support tubes. Small left pleural effusion.
--- NOTE | 2023-11-08 09:42 | P.PN ---
Subjective Progress Note Date: 11/08/23 The patient is a 63-year-old male with multiple comorbid conditions. He is currently admitted to the hospital after undergoing debridement of lower extremity wounds, which was complicated by cellulitis. During his admission he was found to have pneumoperitoneum and underwent exploratory laparotomy where he he had a perforated gastric ulcer. The patient remains sedated on ventilator as well as on Levophed for supportive treatment. 11/08/23: Patient remains intubated and sedated on ventilator with Levophed. Heart rates are in the low 100s. Plan for attempted weaning trial from ventilator, however nursing staff states he does not follow commands off of sedation. Echocardiogram results reveal LV function at 55 to 60% and no significant valvular abnormalities. GENERAL: Ill-appearing. Currently sedated on ventilator. NECK: Supple without JVD or thyromegaly. LUNGS: Breath sounds coarse to auscultation bilaterally. Respiration equal and unlabored. Bilateral rhonchi. HEART: Irregular rate and rhythm without murmurs, rubs or gallops. S1 and S2 heard. EXTREMITIES: Normal range of motion, +2 generalized edema. No clubbing or cyanosis. Peripheral pulses intact and strong. TELEMETRY: Rate controlled atrial fibrillation in the low 100s IMPRESSION: Persistent A. fib with controlled ventricular rates Septic shock Perforated gastric ulcer status post repair Cellulitis Anemia PAD AAA Acute kidney injury Tobacco abuse PLAN: Continue supportive treatment Consideration for amiodarone if patient becomes tachycardic Further recommendations to be based upon clinical course I am dictating on behalf of Dr Godwin Pierre's history/physical and assessment/plan. Objective - Vital Signs Vital signs: Vital Signs Temp 98.8 F 11/08/23 04:00 Pulse 99 11/08/23 08:45 Resp 18 11/08/23 08:45 BP 103/63 11/06/23 03:00 Pulse Ox 98 11/08/23 08:45 FiO2 35 11/08/23 08:16 Intake & Output 11/07/23 11/08/23 11/08/23 18:59 06:59 18:59 Intake Total 2702.172 1253.602 150 Output Total 2315 1135 210 Balance 387.172 118.602 -60 Weight 94.1 kg 96.4 kg Intake: IV 2375 975 150 DAPTOmycin 500 mg In 50 Sodium Chloride 0.9% 50 ml @ 100 mls/hr IVPB Q24HR [facility] Rx#:[id number] Dextrose 5% in Water 1, 1625 975 150 000 ml @ 125 mls/hr IV . Q9H12M [facility] with Sodium Bicarb (1 Meq/ml) 150 ml Rx#:[id number] Piperacillin-Tazobactam 3 300 .375 gm In Sodium Chloride 0.9% 100 ml @ 25 mls/hr IVPB Q8HR [facility] Rx# :[id number] Potassium Chloride 20 meq 400 In Water For Injection 1 100ml.bag @ 50 mls/hr IVPB Q2H [facility] Rx#: [id number] Intake, IV Titration 327.172 278.602 Amount Norepinephrine 4 mg In 103.887 122.093 Sodium Chloride 0.9% 250 ml @ 0.03 MCG/KG/MIN 9. 851 mls/hr IV .Q24H [facility] Rx#:[id number] propofoL 1,000 mg In 223.285 156.509 Empty Bag 1 bag @ 15 MCG/ KG/MIN 7.757 mls/hr IV . [id number] [facility] Rx#:[id number] Output: Drainage 1300 680 40 Abdomen 350 400 Right 950 280 40 Urine 1015 455 170 Other: Voiding Method Indwelling Catheter Indwelling Catheter Indwelling Catheter ABP, PAP, CO, CI - Last Documented Arterial Blood Pressure 99/55 - Labs CBC & Chem 7: 11/08/23 04:52 11/08/23 04:52 Labs: Abnormal Lab Results - Last 24 Hours (Table) 11/07/23 11/07/23 11/08/23 Range/Units 12:17 18:16 04:52 WBC 12.8 H (3.8-10.6) k/uL RBC 2.72 L (4.30-5.90) m/uL Hgb 7.0 L (13.0-17.5) gm/dL Hct 22.7 L (39.0-53.0) % RDW 24.1 H (11.5-15.5) % Neutrophils # 11.7 H (1.3-7.7) k/uL Lymphocytes # 0.5 L (1.0-4.8) k/uL ABG pH (7.35-7.45) ABG pCO2 (35-45) mmHg ABG pO2 (83-108) mmHg ABG Total CO2 (19-24) mmol/L ABG O2 Saturation (94-97) % BUN (9-20) mg/dL Creatinine (0.66-1.25) mg/dL Glucose (74-99) mg/dL POC Glucose (mg/dL) 135 H 122 H (70-110) mg/dL Calcium (8.4-10.2) mg/dL 11/08/23 11/08/23 Range/Units 04:52 06:11 WBC (3.8-10.6) k/uL RBC (4.30-5.90) m/uL Hgb (13.0-17.5) gm/dL Hct (39.0-53.0) % RDW (11.5-15.5) % Neutrophils # (1.3-7.7) k/uL Lymphocytes # (1.0-4.8) k/uL ABG pH 7.47 H (7.35-7.45) ABG pCO2 33 L (35-45) mmHg ABG pO2 145 H (83-108) mmHg ABG Total CO2 25 H (19-24) mmol/L ABG O2 Saturation 99.8 H (94-97) % BUN 52 H (9-20) mg/dL Creatinine 3.07 H (0.66-1.25) mg/dL Glucose 104 H (74-99) mg/dL POC Glucose (mg/dL) (70-110) mg/dL Calcium 6.4 L* (8.4-10.2) mg/dL Microbiology - Last 24 Hours (Table) 11/05/23 16:40 Blood Culture - Preliminary Blood 11/03/23 15:15 Anaerobic Culture - Final Other - Other 11/03/23 15:10 Anaerobic Culture - Final Other - Other Doreen albicans 11/03/23 15:15 Gram Stain - Final Other - Other Wound Culture - Final Pseudomonas aeruginosa Morganella morganii Enterococcus faecalis 11/05/23 20:30 Gram Stain - Preliminary Sputum Sputum Culture - Preliminary Gram Neg Bacilli Doreen albicans
--- NOTE | 2023-11-08 10:57 | P.PN ---
Subjective Progress Note Date: 11/08/23 Principal diagnosis: Bilateral lower extremity wounds Patient is seen and examined in the ICU. Patient remains sedated and intubated. He is status post lower extremity debridement as well as undergoing repair for perforated gastric ulcer. This morning nursing was concerned that patient had change in his vascular status of his lower extremities where patient had some mottling and right foot was cool to the touch. However patient had dressings and Abhijeet wraps that were too tight. No other acute changes reported. Objective - Vital Signs Vital signs: Vital Signs Temp 98.8 F 11/08/23 04:00 Pulse 123 H 11/08/23 07:00 Resp 16 11/08/23 07:00 BP 103/63 11/06/23 03:00 Pulse Ox 100 11/08/23 05:00 FiO2 35 11/08/23 04:00 Intake & Output 11/07/23 11/08/23 11/08/23 18:59 06:59 18:59 Intake Total 2702.172 1253.602 75 Output Total 2315 1135 45 Balance 387.172 118.602 30 Weight 94.1 kg 96.4 kg Intake: IV 2375 975 75 DAPTOmycin 500 mg In 50 Sodium Chloride 0.9% 50 ml @ 100 mls/hr IVPB Q24HR [facility] Rx#:[id number] Dextrose 5% in Water 1, 1625 975 75 000 ml @ 125 mls/hr IV . Q9H12M [facility] with Sodium Bicarb (1 Meq/ml) 150 ml Rx#:[id number] Piperacillin-Tazobactam 3 300 .375 gm In Sodium Chloride 0.9% 100 ml @ 25 mls/hr IVPB Q8HR [facility] Rx# :[id number] Potassium Chloride 20 meq 400 In Water For Injection 1 100ml.bag @ 50 mls/hr IVPB Q2H [facility] Rx#: [id number] Intake, IV Titration 327.172 278.602 Amount Norepinephrine 4 mg In 103.887 122.093 Sodium Chloride 0.9% 250 ml @ 0.03 MCG/KG/MIN 9. 851 mls/hr IV .Q24H [facility] Rx#:[id number] propofoL 1,000 mg In 223.285 156.509 Empty Bag 1 bag @ 15 MCG/ KG/MIN 7.757 mls/hr IV . [id number] [facility] Rx#:[id number] Output: Drainage 1300 680 Abdomen 350 400 Right 950 280 Urine 1015 455 45 Other: Voiding Method Indwelling Catheter Indwelling Catheter ABP, PAP, CO, CI - Last Documented Arterial Blood Pressure 97/51 - Exam General appearance: The patient is sedated and intubated. HET: Head is normocephalic and atraumatic. Neck: Supple. Heart: Regular. Lungs: Equal expansion, mechanical ventilation. Abdomen: Soft, nontender, nondistended. Extremities: Lower extremities with dressings clean dry and intact. Initially right foot was cool and purple appearing and mottled noted that Abhijeet wrap's were extremely tight. These were removed and patient's foot had improved perfusion with good cap refill, improved color and warmth. PT signal present. Neurological: Sedated and intubated. - Labs CBC & Chem 7: 11/08/23 04:52 11/08/23 04:52 Labs: Abnormal Lab Results - Last 24 Hours (Table) 11/07/23 11/07/23 11/08/23 Range/Units 12:17 18:16 04:52 WBC 12.8 H (3.8-10.6) k/uL RBC 2.72 L (4.30-5.90) m/uL Hgb 7.0 L (13.0-17.5) gm/dL Hct 22.7 L (39.0-53.0) % RDW 24.1 H (11.5-15.5) % Neutrophils # 11.7 H (1.3-7.7) k/uL Lymphocytes # 0.5 L (1.0-4.8) k/uL ABG pH (7.35-7.45) ABG pCO2 (35-45) mmHg ABG pO2 (83-108) mmHg ABG Total CO2 (19-24) mmol/L ABG O2 Saturation (94-97) % BUN (9-20) mg/dL Creatinine (0.66-1.25) mg/dL Glucose (74-99) mg/dL POC Glucose (mg/dL) 135 H 122 H (70-110) mg/dL Calcium (8.4-10.2) mg/dL 11/08/23 11/08/23 Range/Units 04:52 06:11 WBC (3.8-10.6) k/uL RBC (4.30-5.90) m/uL Hgb (13.0-17.5) gm/dL Hct (39.0-53.0) % RDW (11.5-15.5) % Neutrophils # (1.3-7.7) k/uL Lymphocytes # (1.0-4.8) k/uL ABG pH 7.47 H (7.35-7.45) ABG pCO2 33 L (35-45) mmHg ABG pO2 145 H (83-108) mmHg ABG Total CO2 25 H (19-24) mmol/L ABG O2 Saturation 99.8 H (94-97) % BUN 52 H (9-20) mg/dL Creatinine 3.07 H (0.66-1.25) mg/dL Glucose 104 H (74-99) mg/dL POC Glucose (mg/dL) (70-110) mg/dL Calcium 6.4 L* (8.4-10.2) mg/dL Microbiology - Last 24 Hours (Table) 11/05/23 16:40 Blood Culture - Preliminary Blood 11/03/23 15:15 Anaerobic Culture - Final Other - Other 11/03/23 15:10 Anaerobic Culture - Final Other - Other Doreen albicans 11/03/23 15:15 Gram Stain - Final Other - Other Wound Culture - Final Pseudomonas aeruginosa Morganella morganii Enterococcus faecalis 11/05/23 20:30 Gram Stain - Preliminary Sputum Sputum Culture - Preliminary Gram Neg Bacilli Doreen albicans Assessment and Plan Assessment: 1. Bilateral lower extremity wound status postdebridement 2. Perforated gastric ulcer status post repair 3. Acute ventilatory dependent respiratory failure Plan: 1. Continue with ICU supportive care. 2. Continue lower extremity local wound care daily. Do not apply Abhijeet wrap's t ightly to lower extremities. 3. Patient will need outpatient wound care upon discharge 4. No further vascular surgical intervention at this time Thank you for this consultation, we will sign off at this time. The impression and plan of care has been dictated as directed. Dr. Isaac I performed a history and examination of this patient, discussed the same with the dictator. I agree with the dictator's note ,documented as a scribe. Any additional findings or plans will be noted.
[2023-11-08] MEDS: FUROSEMIDE 10 MG/ML 4 ML VIAL IV STA (11:11)
[2023-11-08 11:36] LABS: Glucose,Whole Blood 113 mg/dL (70-110)
--- NOTE | 2023-11-08 12:27 | P.PN ---
Subjective he shouldn't is seen for follow-up for acute kidney injury. Patient remains on the vent.FiO2 is at 35%. Urine output has improved to about 50-100 mL an hour. Serum creatinine at 3.0 today. Objective - Vital Signs Vital signs: Vital Signs Temp 98.6 F 11/08/23 12:00 Pulse 113 H 11/08/23 12:00 Resp 21 11/08/23 12:00 BP 103/63 11/06/23 03:00 Pulse Ox 100 11/08/23 12:00 FiO2 35 11/08/23 11:59 Intake & Output 11/07/23 11/08/23 11/08/23 18:59 06:59 18:59 Intake Total 2702.172 1253.602 538.386 Output Total 2315 1135 480 Balance 387.172 118.602 58.386 Weight 94.1 kg 96.4 kg Intake: IV 2375 975 516 Calcium Gluconate in NaCl 100 1 gm In Saline 1 100ml. bag @ 100 mls/hr IVPB ONCE ONE Rx#:[id number] DAPTOmycin 500 mg In 50 100 Sodium Chloride 0.9% 50 ml @ 100 mls/hr IVPB Q24HR [facility] Rx#:[id number] Dextrose 5% in Water 1, 1625 975 150 000 ml @ 125 mls/hr IV . Q9H12M [facility] with Sodium Bicarb (1 Meq/ml) 150 ml Rx#:[id number] Dextrose 5% in Water 1, 150 000 ml @ 75 mls/hr IV . [id number] [facility] with Sodium Bicarb (1 Meq/ml) 150 ml Rx#:[id number] KVO 10 Piperacillin-Tazobactam 3 300 .375 gm In Sodium Chloride 0.9% 100 ml @ 25 mls/hr IVPB Q8HR [facility] Rx# :[id number] Potassium Chloride 20 meq 400 In Water For Injection 1 100ml.bag @ 50 mls/hr IVPB Q2H [facility] Rx#: [id number] Pressure lines 6 Intake, IV Titration 327.172 278.602 22.386 Amount Norepinephrine 4 mg In 103.887 122.093 22.386 Sodium Chloride 0.9% 250 ml @ 0.03 MCG/KG/MIN 9. 851 mls/hr IV .Q24H [facility] Rx#:[id number] propofoL 1,000 mg In 223.285 156.509 Empty Bag 1 bag @ 15 MCG/ KG/MIN 7.757 mls/hr IV . [id number] [facility] Rx#:[id number] Output: Drainage 1300 680 60 Abdomen 350 400 Right 950 280 60 Urine 1015 455 420 Other: Voiding Method Indwelling Catheter Indwelling Catheter Indwelling Catheter ABP, PAP, CO, CI - Last Documented Arterial Blood Pressure 120/65 - Exam Patient is sedated. Currently on the vent. FiO2 35%. Examination of the heart S1 and S2 Examination of the lungs bilateral breath sounds are heard Abdomen is dressed Bilateral lower extremities are wrapped. significant edema noted bilaterally 2+ along with significant scrotal edema. - Labs CBC & Chem 7: 11/08/23 04:52 11/08/23 04:52 Labs: Abnormal Lab Results - Last 24 Hours (Table) 11/07/23 11/08/23 11/08/23 Range/Units 18:16 04:52 04:52 WBC 12.8 H (3.8-10.6) k/uL RBC 2.72 L (4.30-5.90) m/uL Hgb 7.0 L (13.0-17.5) gm/dL Hct 22.7 L (39.0-53.0) % RDW 24.1 H (11.5-15.5) % Neutrophils # 11.7 H (1.3-7.7) k/uL Lymphocytes # 0.5 L (1.0-4.8) k/uL ABG pH (7.35-7.45) ABG pCO2 (35-45) mmHg ABG pO2 (83-108) mmHg ABG Total CO2 (19-24) mmol/L ABG O2 Saturation (94-97) % BUN 52 H (9-20) mg/dL Creatinine 3.07 H (0.66-1.25) mg/dL Glucose 104 H (74-99) mg/dL POC Glucose (mg/dL) 122 H (70-110) mg/dL Calcium 6.4 L* (8.4-10.2) mg/dL 11/08/23 11/08/23 Range/Units 06:11 11:35 WBC (3.8-10.6) k/uL RBC (4.30-5.90) m/uL Hgb (13.0-17.5) gm/dL Hct (39.0-53.0) % RDW (11.5-15.5) % Neutrophils # (1.3-7.7) k/uL Lymphocytes # (1.0-4.8) k/uL ABG pH 7.47 H (7.35-7.45) ABG pCO2 33 L (35-45) mmHg ABG pO2 145 H (83-108) mmHg ABG Total CO2 25 H (19-24) mmol/L ABG O2 Saturation 99.8 H (94-97) % BUN (9-20) mg/dL Creatinine (0.66-1.25) mg/dL Glucose (74-99) mg/dL POC Glucose (mg/dL) 113 H (70-110) mg/dL Calcium (8.4-10.2) mg/dL Microbiology - Last 24 Hours (Table) 11/05/23 16:40 Blood Culture - Preliminary Blood 11/03/23 15:15 Anaerobic Culture - Final Other - Other 11/03/23 15:10 Anaerobic Culture - Final Other - Other Doreen albicans 11/03/23 15:15 Gram Stain - Final Other - Other Wound Culture - Final Pseudomonas aeruginosa Morganella morganii Enterococcus faecalis 11/05/23 20:30 Gram Stain - Preliminary Sputum Sputum Culture - Preliminary Gram Neg Bacilli Doreen albicans Assessment and Plan Assessment: 1. Acute kidney injury, ATN, oliguric initially, currently nonoliguric secondary to hypotension and sepsis. Vancomycin noted upon initial admission however currently patient is maintained on daptomycin. He has received multiple fluid boluses. UA shows trace protein and small blood. No evidence of obstru ction on CT of the abdomen. 2. Nongap metabolic acidosis secondary to acute kidney injury 3. Sepsis with septic shock from perforated viscus and bilateral lower extremity wounds. 4. Bilateral lower extremity wounds with wound cultures growing MRSA, Pseudomonas and Enterococcus faecalis. Patient is being followed by ID. 5. Acute hypoxic respiratory failure maintained on the vent 6. Volume overload and significant third spacing Plan: continue off of IV fluids IV Lasix 1 Continue to avoid nephrotoxic agents.
[2023-11-08 12:28] LABS: Magnesium 1.8 mg/dL (1.6-2.3); Phosphorus 5.1 mg/dL (2.5-4.5)
--- NOTE | 2023-11-08 12:36 | P.PN ---
Subjective Progress Note Date: 11/08/23 Principal diagnosis: Reason for follow-up is bilateral lower extremity infected wounds and perforated peptic ulcer Patient is a 63-year-old male with a past medical history significant for hypertension hyperlipidemia coronary artery disease, PAD multiple vascular procedures including left femoral-tibial bypass and now has been dealing with the wound to the left lower extremity as well as wound to the right leg being managed in the outpatient setting by vascular surgery Center the hospital by the home care nurse concerning for worsening infection. Patient last wound culture positive for VRE and Pseudomonas. Patient is status post Sharp excisional debridement bilateral lower extremities along with cultures of the purulent material completed on 11/03/2023.Patient was taken to the OR 11/05/2023 found to have perforated gastric ulcer status post exploratory laparotomy repair of the perforated ulcer with modified Jasvir patch. On today's evaluation that is 11/08/2023, patient has been afebrile, patient remains to intubated on the vent FiO2 is stable at 35% no significant purulent secretions through the ET still requiring pressor support to maintain the blood pressure no other changes reported by the nursing staff. Patient white count is down to 12.8, creatinine 3.07 Objective - Vital Signs Vital signs: Vital Signs Temp 98.6 F 11/08/23 12:00 Pulse 113 H 11/08/23 12:00 Resp 21 11/08/23 12:00 BP 103/63 11/06/23 03:00 Pulse Ox 100 11/08/23 12:00 FiO2 35 11/08/23 11:59 Intake & Output 11/07/23 11/08/23 11/08/23 18:59 06:59 18:59 Intake Total 2702.172 1253.602 538.386 Output Total 2315 1135 480 Balance 387.172 118.602 58.386 Weight 94.1 kg 96.4 kg Intake: IV 2375 975 516 Calcium Gluconate in NaCl 100 1 gm In Saline 1 100ml. bag @ 100 mls/hr IVPB ONCE ONE Rx#:[id number] DAPTOmycin 500 mg In 50 100 Sodium Chloride 0.9% 50 ml @ 100 mls/hr IVPB Q24HR [facility] Rx#:[id number] Dextrose 5% in Water 1, 1625 975 150 000 ml @ 125 mls/hr IV . Q9H12M [facility] with Sodium Bicarb (1 Meq/ml) 150 ml Rx#:[id number] Dextrose 5% in Water 1, 150 000 ml @ 75 mls/hr IV . [id number] [facility] with Sodium Bicarb (1 Meq/ml) 150 ml Rx#:[id number] KVO 10 Piperacillin-Tazobactam 3 300 .375 gm In Sodium Chloride 0.9% 100 ml @ 25 mls/hr IVPB Q8HR [facility] Rx# :[id number] Potassium Chloride 20 meq 400 In Water For Injection 1 100ml.bag @ 50 mls/hr IVPB Q2H [facility] Rx#: [id number] Pressure lines 6 Intake, IV Titration 327.172 278.602 22.386 Amount Norepinephrine 4 mg In 103.887 122.093 22.386 Sodium Chloride 0.9% 250 ml @ 0.03 MCG/KG/MIN 9. 851 mls/hr IV .Q24H [facility] Rx#:[id number] propofoL 1,000 mg In 223.285 156.509 Empty Bag 1 bag @ 15 MCG/ KG/MIN 7.757 mls/hr IV . [id number] [facility] Rx#:[id number] Output: Drainage 1300 680 60 Abdomen 350 400 Right 950 280 60 Urine 1015 455 420 Other: Voiding Method Indwelling Catheter Indwelling Catheter Indwelling Catheter ABP, PAP, CO, CI - Last Documented Arterial Blood Pressure 120/65 - Exam GENERAL DESCRIPTION: Middle-age male intubated on the vent RESPIRATORY SYSTEM: Unlabored breathing , decreased breath sounds at bases HEART: S1 S2 regular rate and rhythm , ABDOMEN: Soft , mild distention EXTREMITIES: Bilateral extremity wounds currently dressed no drainage - Labs CBC & Chem 7: 11/08/23 04:52 11/08/23 04:52 Labs: Abnormal Lab Results - Last 24 Hours (Table) 11/07/23 11/08/23 11/08/23 Range/Units 18:16 04:52 04:52 WBC 12.8 H (3.8-10.6) k/uL RBC 2.72 L (4.30-5.90) m/uL Hgb 7.0 L (13.0-17.5) gm/dL Hct 22.7 L (39.0-53.0) % RDW 24.1 H (11.5-15.5) % Neutrophils # 11.7 H (1.3-7.7) k/uL Lymphocytes # 0.5 L (1.0-4.8) k/uL ABG pH (7.35-7.45) ABG pCO2 (35-45) mmHg ABG pO2 (83-108) mmHg ABG Total CO2 (19-24) mmol/L ABG O2 Saturation (94-97) % BUN 52 H (9-20) mg/dL Creatinine 3.07 H (0.66-1.25) mg/dL Glucose 104 H (74-99) mg/dL POC Glucose (mg/dL) 122 H (70-110) mg/dL Calcium 6.4 L* (8.4-10.2) mg/dL Phosphorus (2.5-4.5) mg/dL 11/08/23 11/08/23 11/08/23 Range/Units 04:52 06:11 11:35 WBC (3.8-10.6) k/uL RBC (4.30-5.90) m/uL Hgb (13.0-17.5) gm/dL Hct (39.0-53.0) % RDW (11.5-15.5) % Neutrophils # (1.3-7.7) k/uL Lymphocytes # (1.0-4.8) k/uL ABG pH 7.47 H (7.35-7.45) ABG pCO2 33 L (35-45) mmHg ABG pO2 145 H (83-108) mmHg ABG Total CO2 25 H (19-24) mmol/L ABG O2 Saturation 99.8 H (94-97) % BUN (9-20) mg/dL Creatinine (0.66-1.25) mg/dL Glucose (74-99) mg/dL POC Glucose (mg/dL) 113 H (70-110) mg/dL Calcium (8.4-10.2) mg/dL Phosphorus 5.1 H (2.5-4.5) mg/dL Microbiology - Last 24 Hours (Table) 11/05/23 20:30 Gram Stain - Final Sputum Sputum Culture - Final Stenotrophomonas maltophilia Doreen albicans 11/05/23 16:40 Blood Culture - Preliminary Blood 11/03/23 15:15 Anaerobic Culture - Final Other - Other 11/03/23 15:10 Anaerobic Culture - Final Other - Other Doreen albicans 11/03/23 15:15 Gram Stain - Final Other - Other Wound Culture - Final Pseudomonas aeruginosa Morganella morganii Enterococcus faecalis Assessment and Plan (1) Bilateral lower leg cellulitis Current Visit: Yes Status: Acute Code(s): L03.116 - CELLULITIS OF LEFT LOWER LIMB; L03.115 - CELLULITIS OF RIGHT LOWER LIMB SNOMED Code(s): 609364751 (2) Open wound of both lower extremities Current Visit: Yes Status: Acute Code(s): S81.801A - UNSPECIFIED OPEN WOUND, RIGHT LOWER LEG, INITIAL ENCOUNTER; S81.802A - UNSPECIFIED OPEN WOUND, LEFT LOWER LEG, INITIAL ENCOUNTER SNOMED Code(s): 15669489 (3) Sepsis Current Visit: Yes Status: Acute Code(s): A41.9 - SEPSIS, UNSPECIFIED ORGANISM SNOMED Code(s): 26594748 Plan: 1patient presented to hospital with sepsis in this patient who did have a fever tachycardia elevated white count source is likely bilateral lower extremity wound and cellulitis with more extensive wound to the left lower extremity in this patient who did have a history of PAD and has multiple vascular procedure last wound culture done from the right leg has been Pseudomonas and VRE that was done on 10/03/2023, culture done this admission are growing Pseudomonas aeruginosa Enterococcus faecalis that is not VRE and MRSA 2patient is status post debridement and deep culture completed on 11/03/2023 which did grow multiple pathogen including Pseudomonas Morganella Enterococcus faecalis and MRSA 3patient did have a perforated peptic ulcer status post laparotomy and modified Jasvir patch 4-patient is afebrile white count is down to 12,000 still requiring pressor support 5- Pt to continue with the daptomycin, Zosyn and Eraxis and monitor clinical course closely Dictation was produced using [employer] dictation software. please excuse any grammatical, word or spelling errors. Time with Patient: Less than 30
--- NOTE | 2023-11-08 12:47 | P.PN ---
Subjective Progress Note Date: 11/08/23 CHIEF COMPLAINT: Perforated gastric ulcer HISTORY OF PRESENT ILLNESS: patient is postop day #3 status post repair of perforated gastric ulcer. Patient remains in the ICU on mechanical ventilation. Patient did require to be placed back on Levophed this morning. Patient continues to have large amount of output through the SANDY drain of servicing when his ascites fluid. About 100 mL per hour. And previous wound VAC also showing ascites drainage. Afebrile. Tachycardic. Hypotensive. WBC is down from 21- 12.8 hemoglobin 7 creatinine 3.0 PHYSICAL EXAM: VITAL SIGNS: Reviewed. GENERAL: no acute distress. ABDOMEN: Soft. Prevena wound VAC intact with serosanguineous ascites fluid. SANDY drain serosanguineous ascites fluid NEUROLOGIC: Alert and oriented. Cranial nerves II through XII grossly intact. ASSESSMENT: 1. Perforated gastric ulcer 2. Sepsis and septic shock 3. History of alcoholism PLAN: -continue ICU management -Continue supportive care -recommend TPN for nutrition support -Antibiotics per ID service -Continue IV Protonix Physician Quick Service Technician note has been reviewed by physician. Signing provider agrees with the documented findings, assessment, and plan of care. Objective - Vital Signs Vital signs: Vital Signs Temp 98.6 F 11/08/23 12:00 Pulse 113 H 11/08/23 12:00 Resp 21 11/08/23 12:00 BP 103/63 11/06/23 03:00 Pulse Ox 100 11/08/23 12:00 FiO2 35 11/08/23 11:59 Intake & Output 11/07/23 11/08/23 11/08/23 18:59 06:59 18:59 Intake Total 2702.172 1253.602 538.386 Output Total 2315 1135 480 Balance 387.172 118.602 58.386 Weight 94.1 kg 96.4 kg Intake: IV 2375 975 516 Calcium Gluconate in NaCl 100 1 gm In Saline 1 100ml. bag @ 100 mls/hr IVPB ONCE ONE Rx#:[id number] DAPTOmycin 500 mg In 50 100 Sodium Chloride 0.9% 50 ml @ 100 mls/hr IVPB Q24HR [facility] Rx#:[id number] Dextrose 5% in Water 1, 1625 975 150 000 ml @ 125 mls/hr IV . Q9H12M [facility] with Sodium Bicarb (1 Meq/ml) 150 ml Rx#:[id number] Dextrose 5% in Water 1, 150 000 ml @ 75 mls/hr IV . [id number] [facility] with Sodium Bicarb (1 Meq/ml) 150 ml Rx#:[id number] KVO 10 Piperacillin-Tazobactam 3 300 .375 gm In Sodium Chloride 0.9% 100 ml @ 25 mls/hr IVPB Q8HR [facility] Rx# :[id number] Potassium Chloride 20 meq 400 In Water For Injection 1 100ml.bag @ 50 mls/hr IVPB Q2H [facility] Rx#: [id number] Pressure lines 6 Intake, IV Titration 327.172 278.602 22.386 Amount Norepinephrine 4 mg In 103.887 122.093 22.386 Sodium Chloride 0.9% 250 ml @ 0.03 MCG/KG/MIN 9. 851 mls/hr IV .Q24H [facility] Rx#:[id number] propofoL 1,000 mg In 223.285 156.509 Empty Bag 1 bag @ 15 MCG/ KG/MIN 7.757 mls/hr IV . [id number] [facility] Rx#:[id number] Output: Drainage 1300 680 60 Abdomen 350 400 Right 950 280 60 Urine 1015 455 420 Other: Voiding Method Indwelling Catheter Indwelling Catheter Indwelling Catheter ABP, PAP, CO, CI - Last Documented Arterial Blood Pressure 120/65 - Labs CBC & Chem 7: 11/08/23 04:52 11/08/23 04:52 Labs: Abnormal Lab Results - Last 24 Hours (Table) 11/07/23 11/08/23 11/08/23 Range/Units 18:16 04:52 04:52 WBC 12.8 H (3.8-10.6) k/uL RBC 2.72 L (4.30-5.90) m/uL Hgb 7.0 L (13.0-17.5) gm/dL Hct 22.7 L (39.0-53.0) % RDW 24.1 H (11.5-15.5) % Neutrophils # 11.7 H (1.3-7.7) k/uL Lymphocytes # 0.5 L (1.0-4.8) k/uL ABG pH (7.35-7.45) ABG pCO2 (35-45) mmHg ABG pO2 (83-108) mmHg ABG Total CO2 (19-24) mmol/L ABG O2 Saturation (94-97) % BUN 52 H (9-20) mg/dL Creatinine 3.07 H (0.66-1.25) mg/dL Glucose 104 H (74-99) mg/dL POC Glucose (mg/dL) 122 H (70-110) mg/dL Calcium 6.4 L* (8.4-10.2) mg/dL Phosphorus (2.5-4.5) mg/dL 11/08/23 11/08/23 11/08/23 Range/Units 04:52 06:11 11:35 WBC (3.8-10.6) k/uL RBC (4.30-5.90) m/uL Hgb (13.0-17.5) gm/dL Hct (39.0-53.0) % RDW (11.5-15.5) % Neutrophils # (1.3-7.7) k/uL Lymphocytes # (1.0-4.8) k/uL ABG pH 7.47 H (7.35-7.45) ABG pCO2 33 L (35-45) mmHg ABG pO2 145 H (83-108) mmHg ABG Total CO2 25 H (19-24) mmol/L ABG O2 Saturation 99.8 H (94-97) % BUN (9-20) mg/dL Creatinine (0.66-1.25) mg/dL Glucose (74-99) mg/dL POC Glucose (mg/dL) 113 H (70-110) mg/dL Calcium (8.4-10.2) mg/dL Phosphorus 5.1 H (2.5-4.5) mg/dL Microbiology - Last 24 Hours (Table) 11/05/23 20:30 Gram Stain - Final Sputum Sputum Culture - Final Stenotrophomonas maltophilia Doreen albicans 11/05/23 16:40 Blood Culture - Preliminary Blood 11/03/23 15:15 Anaerobic Culture - Final Other - Other 11/03/23 15:10 Anaerobic Culture - Final Other - Other Doreen albicans 11/03/23 15:15 Gram Stain - Final Other - Other Wound Culture - Final Pseudomonas aeruginosa Morganella morganii Enterococcus faecalis
[2023-11-08] MEDS: MVI, ADULT NO.4 WITH VIT K 10 ML, TRACE (CONC-1ML/DOSE) 1 ML, SODIUM ACETATE 30 MEQ, PO... IV ONE (14:31)
[2023-11-08 18:06] LABS: Glucose,Whole Blood 117 mg/dL (70-110)
--- NOTE | 2023-11-08 20:03 | P.PN ---
Subjective Progress Note Date: 11/08/23 Patient is a 63-year-old white male with past medical history significant for chronic bilateral lower extremity wounds with multiple previous debridements, peripheral vascular disease, recent femoropopliteal artery bypass, AAA, coronary artery disease, hyperlipidemia, hypertension, and tobacco dependence. He is currently intubated to the mechanical ventilator in the intensive care unit, and unable to provide any information for HPI. Apparently, he presented to the emergency department on 10/29/2023 with his lower extremity wounds and suspected cellulitis/sepsis. He follows with vascular surgery. On 11/03/2023 he did undergo debridement of his bilateral lower extremity wounds. Wound cultures p ositive for polymicrobial organisms including Pseudomonas aeruginosa, MRSA, Enterococcus faecalis. Antibiotics are being directed by infectious disease. Yesterday, on 11/05/2023 the patient was having some abdominal pain and issues with hypotension. A rapid response was called. CT of the abdomen and pelvis without contrast demonstrated a pneumoperitoneum. Patient was then taken to the operating room yesterday evening for an exploratory laparotomy, was found to have a perforated gastric ulcer; subsequently underwent repair with a modified Jasvir patch. Patient was transferred back to the intensive care unit in critical condition. Currently, patient is being evaluated in the intensive care unit intubated to the mechanical ventilator. Most recent ABGs consistent with profound metabolic acidosis. PaO2 327, pCO2 45, pH of 7.12. He was given 3 A of sodium bicarbonate. Current ventilator settings include assist-control, respiratory rate 16, tidal volume 450, FiO2 50%, and PEEP of 5. Chest x-ray, showing the tip of the endotracheal tube in a proximal position, approximately 9 cm above the prince. Nasogastric tube within the stomach. There is a left- sided pleural effusion. Dr. Crystal previously had the endotracheal tube advanced 3 cm. Patient is currently sedated on propofol which is infusing at 25 mcg/kg/min. He is synchronous with mechanical ventilator. Remains hypotensive, currently requiring vasopressors in the form of norepinephrine which is infusing at 0.1 mcg/kg/min. Postoperatively, the patient was fluid resuscitated with a total of 2 L crystalloid fluid. Lactated Ringer's also infusing at 125 mL/h. CVP is reading 8 mmHg. Patient has remained anuric. Heart rhythm appears atrial fibrillation with controlled ventricular response ranging from 80 to 90 bpm. Patient does have history of A-fib, not on any anticoagulation currently. Patient's abdominal incision has a wound VAC, and there is a compressed SANDY drain that is drained a total of 510 mL of serosanguineous output since surgery. Patient is currently covered on a combination of Zosyn, daptomycin, and Eraxis, which are being directed by infectious disease. Currently, hypothermic with external warming blanket on. Postoperative CBC: WBC count 31.8, hemoglobin 9.4, hematocrit 32.7, platelets 647. Postoperative BMP: Sodium 135, potassium 4.2, chloride 112, serum bicarb 12, BUN 53, creatinine 2.46, glucose 120. Overall, prognosis is guarded. On 11/07/2023, the patient is being seen for a follow-up. The patient remains intubated on the mechanical ventilator. This morning, the patient is sedated on propofol which is running at 40 mcg/kg/min. The patient remains intubated on mechanical ventilator on assist-control mode rate of 16, tidal volume of 450, FiO2 of 35% with a PEEP of 5. Chest x-ray shows consolidation of the lung bases more so on the left. ET tube is in good location. The patient also has an NG tube in place. The blood gas showed a pH of 7.42 with a pCO2 of 31 and pO2 of 87. No significant extra secretion the patient is currently intubated by #8 orotracheal tube. Hemodynamically, the patient remains on low-dose norepinephrine which is running at 0.05 mcg/kg/min. The patient is on a bicarb infusion running at 125 cc an hour. Output from the SANDY drain is quite extensive approximately 500 cc of serous material over the past 8 hours. The patient remains on the same antibiotic coverage and this includes Zosyn, daptomycin and Eraxis. On today's evaluation, the patient's white cell count is at 21 with a hemoglobin 7.1 and a platelet count of 477. BUN is 53 with a creatinine of 2.8 and a sodium levels at 137. The potassium levels of 3.3. Serum bicarb is at 20. Cultures from the wound is positive for Pseudomonas aeruginosa, Morganella and Enterococcus faecalis. Sputum sample is still negative for the time being. The patient is afebrile. The wounds in the lower extremity are appropriately dressed. Noted the patient has undergone multiple previous debridements of the lower extremity wounds. He is known to have severe PAD vascular disease. He is status post femoropopliteal bypass surgery. He is also known to have abdominal aortic aneurysm status post endovascular grafting along with coronary artery disease and hypertension hyperlipidemia. The patient is also status post gastric perforation with pneumoperitoneum requiring immediate surgical interventionAnd the patient has undergone exploratory laparotomy and repair of the perforated gastric ulcer with a modified Jasvir patch technique. Surgery was done on 11/05/2023 and the patient is currently postop day #2. He remains n.p.o. for now. On today's evaluation of 11/08/2023, the patient is being seen for a follow-up. Noted this morning, the patient remains sedated on propofol which is running at 40 mcg/kg/min. The patient was given a sedation holiday which she essentially failed. He did not recover his mentation and the patient was essentially thrashing and becoming asynchronous with mechanical ventilator and the trial was aborted. As such, the patient was kept on mechanical ventilator and earlier this morning the patient was on assist-control mode at rate of 16, tidal volume of 450, FiO2 of 35% with a PEEP of 5. Chest x-ray remains unchanged and the patient has consolidation lower lungs bilaterally and possibly some underlying pleural effusions. Blood gas showed a pH of 7.47 with a pCO2 of 33 and pO2 of 145. The patient remains in atrial fibrillation. The patient remains on pressors and norepinephrine is running at 0.03 mcg/kg/min. The patient remains NPO. Output from the NG tube is minimal at this point in time. Output from the SANDY drain was noted and it is in the order of 1.2 L of serous material over the past 24 hours. The surgical wound site is dry clean and intact. Wound VAC is also in place. The overall fluid balance over the past 24 hours is positive for 0.4 L. This sputum sample is positive for stenotrophomonas and Doreen. The current antibiotic coverage includes a combination of Eraxis, daptomycin and Zosyn. Blood work from today shows a WBC count of 12.8, hemoglobin of 7 and a platelet count of 316. BUN is 52 with a creatinine of 3.07 and a sodium levels at 137 and potassium level is at 3.9. Calcium level is low at 6.4. Phosphorus level is at 5.1. Triglycerides at 174. Patient is afebrile. The patient is currently postop day #3 following a repair of a perforated gastric ulcer with a modified Jasvir patch technique. Surgery was done on 11/05/2023. Objective - Vital Signs Vital signs: Vital Signs Temp 98.8 F 11/08/23 04:00 Pulse 99 11/08/23 08:45 Resp 18 11/08/23 08:45 BP 103/63 11/06/23 03:00 Pulse Ox 98 11/08/23 08:45 FiO2 35 11/08/23 08:16 Intake & Output 11/07/23 11/08/23 11/08/23 18:59 06:59 18:59 Intake Total 2702.172 1253.602 150 Output Total 2315 1135 210 Balance 387.172 118.602 -60 Weight 94.1 kg 96.4 kg Intake: IV 2375 975 150 DAPTOmycin 500 mg In 50 Sodium Chloride 0.9% 50 ml @ 100 mls/hr IVPB Q24HR [facility] Rx#:[id number] Dextrose 5% in Water 1, 1625 975 150 000 ml @ 125 mls/hr IV . Q9H12M [facility] with Sodium Bicarb (1 Meq/ml) 150 ml Rx#:[id number] Piperacillin-Tazobactam 3 300 .375 gm In Sodium Chloride 0.9% 100 ml @ 25 mls/hr IVPB Q8HR [facility] Rx# :[id number] Potassium Chloride 20 meq 400 In Water For Injection 1 100ml.bag @ 50 mls/hr IVPB Q2H [facility] Rx#: [id number] Intake, IV Titration 327.172 278.602 Amount Norepinephrine 4 mg In 103.887 122.093 Sodium Chloride 0.9% 250 ml @ 0.03 MCG/KG/MIN 9. 851 mls/hr IV .Q24H [facility] Rx#:[id number] propofoL 1,000 mg In 223.285 156.509 Empty Bag 1 bag @ 15 MCG/ KG/MIN 7.757 mls/hr IV . [id number] [facility] Rx#:[id number] Output: Drainage 1300 680 40 Abdomen 350 400 Right 950 280 40 Urine 1015 455 170 Other: Voiding Method Indwelling Catheter Indwelling Catheter Indwelling Catheter ABP, PAP, CO, CI - Last Documented Arterial Blood Pressure 99/55 - Exam GENERAL EXAM: Sedated and intubated to the mechanical ventilator, synchronous mechanical ventilator, facial grimacing with deep painful stimuli, withdraws to pain in all 4 extremities HEAD: Normocephalic and atraumatic EYES: Normal reaction of pupils, equal size. NOSE: Clear with pink turbinates. THROAT: No erythema or exudates. NECK: No masses, no JVD. Right IJ central line catheter in place. CHEST: No chest wall deformity. LUNGS: Equal air entry with no crackles, wheeze, rhonchi or dullness. Intubated to mechanical ventilator, synchronous with current vent settings. Minimal endotracheal secretions. Peak pressures 28 CVS: S1 and S2 normal with no audible murmur, irregular rhythm. No extra heart sounds ABDOMEN: Midline abdominal incision with wound VAC, wound not approximated. SANDY drain compressed and draining serosanguineous output. Abdomen is soft, bowel sounds hypoactive, no appreciated organomegaly. The patient has a SANDY drain in place. Output is noted in the order of 1200 cc over the past 24 hours. SPINE: No scoliosis or deformity SKIN: Bilateral lower extremities wrapped in postoperative dressing/Abhijeet Kerlix wrap CENTRAL NERVOUS SYSTEM: Sedated on propofol, no focal deficits, withdraws to pain in all 4 extremities. EXTREMITIES: Bilateral lower extremities wrapped in Kerlix, distal pulses posterior tibial found with Doppler. Brachial arterial line in place with good arterial waveform. Bilateral radial pulses weak but palpable, capillary refill greater than 3 seconds. - Labs CBC & Chem 7: 11/08/23 04:52 11/08/23 04:52 Labs: Abnormal Lab Results - Last 24 Hours (Table) 11/07/23 11/07/23 11/08/23 Range/Units 12:17 18:16 04:52 WBC 12.8 H (3.8-10.6) k/uL RBC 2.72 L (4.30-5.90) m/uL Hgb 7.0 L (13.0-17.5) gm/dL Hct 22.7 L (39.0-53.0) % RDW 24.1 H (11.5-15.5) % Neutrophils # 11.7 H (1.3-7.7) k/uL Lymphocytes # 0.5 L (1.0-4.8) k/uL ABG pH (7.35-7.45) ABG pCO2 (35-45) mmHg ABG pO2 (83-108) mmHg ABG Total CO2 (19-24) mmol/L ABG O2 Saturation (94-97) % BUN (9-20) mg/dL Creatinine (0.66-1.25) mg/dL Glucose (74-99) mg/dL POC Glucose (mg/dL) 135 H 122 H (70-110) mg/dL Calcium (8.4-10.2) mg/dL 11/08/23 11/08/23 Range/Units 04:52 06:11 WBC (3.8-10.6) k/uL RBC (4.30-5.90) m/uL Hgb (13.0-17.5) gm/dL Hct (39.0-53.0) % RDW (11.5-15.5) % Neutrophils # (1.3-7.7) k/uL Lymphocytes # (1.0-4.8) k/uL ABG pH 7.47 H (7.35-7.45) ABG pCO2 33 L (35-45) mmHg ABG pO2 145 H (83-108) mmHg ABG Total CO2 25 H (19-24) mmol/L ABG O2 Saturation 99.8 H (94-97) % BUN 52 H (9-20) mg/dL Creatinine 3.07 H (0.66-1.25) mg/dL Glucose 104 H (74-99) mg/dL POC Glucose (mg/dL) (70-110) mg/dL Calcium 6.4 L* (8.4-10.2) mg/dL Microbiology - Last 24 Hours (Table) 11/05/23 16:40 Blood Culture - Preliminary Blood 11/03/23 15:15 Anaerobic Culture - Final Other - Other 11/03/23 15:10 Anaerobic Culture - Final Other - Other Doreen albicans 11/03/23 15:15 Gram Stain - Final Other - Other Wound Culture - Final Pseudomonas aeruginosa Morganella morganii Enterococcus faecalis 11/05/23 20:30 Gram Stain - Preliminary Sputum Sputum Culture - Preliminary Gram Neg Bacilli Doreen albicans Assessment and Plan Plan: Perforated gastric ulcer and pneumoperitoneum, status post exploratory laparotomy with gastric ulcer repair with modified Jasvir patch on 11/05/2023, the patient is postop day #3 Acute hypoxic respiratory failure with bilateral lower lobe consolidation, c onsider possibility of pneumonia/effusion left worse than right. Furthermore, the sputum sample did not show any stenosis for Kareem and Doreen. Consider the possibility of a hospital-acquired/ventilator acquired pneumonia with gram- negative/serial troponins. Septic shock with hypotension and shock, currently requiring vasopressors in the form of norepinephrine. Pressor requirements have dropped significantly and the patient is currently on low-dose norepinephrine at 0.03 mcg/kg/min Sepsis and septic shock Severe nonanion gap metabolic acidosis, treated with a bicarb infusion, improved Bilateral lower extremity wounds/cellulitis, status-post debridement on 11/03/2023. Wounds positive for polymicrobial organisms including Pseudomonas aeruginosa, MRSA, Enterococcus faecalis. Antibiotics being directed by infectious disease specialist Peripheral vascular disease, with recent history of femoral popliteal artery bypass on 06/06/2023, subsequently, developing wound infection and dehiscence, undergoing multiple excisional debridements since then. Atrial fibrillation with controlled ventricular response Normocytic, normochromic anemia Acute leukocytosis Acute kidney injury secondary to hypotension and ATN, nonoliguric and the patient has a positive urine output. The patient remains nonoliguric History of hypertension History of hyperlipidemia History of coronary artery disease with previous stent placement History of AAA with previous endovascular repair History of alcoholism Chronic ongoing tobacco dependence Plan Continue vent support, no ventilator changes for today Discontinue the bicarb infusion Keep the patient on propofol for now. The patient will be given a sedation holiday for later stage, sedation holiday was done yesterday failed Wean off pressors and discontinue today Keep the patient on same antibiotic coverage to include a combination of daptomycin, Eraxis and Zosyn, and Levaquin to cover the stenotrophomonas. Ideally, I would like to use Bactrim. Nevertheless based on his underlying renal failure, I am going to cover this patient with Levaquin and monitor his progress. Keep the patient NPO. Will discuss feeding with general surgery. The patient will be started on TPN for nutritional support. Monitor hemodynamics Monitor renal function Condition is obviously critical and will continue to follow make further recommendations based on progress. This evaluation was done more than 30 minutes. Time with Patient: Greater than 30
[2023-11-08] MEDS: LEVOFLOXACIN 250MG-D5W PMX 250 MG in DEXTROSE/WATER 1 50ML.BAG IVPB SCH (21:29)
[2023-11-08 23:59] LABS: Glucose,Whole Blood 54 mg/dL (70-110)
[2023-11-09 00:04] LABS: Glucose,Whole Blood 126 mg/dL (70-110)
[2023-11-09 05:03] LABS: Glucose,Whole Blood 135 mg/dL (70-110)
[2023-11-09 05:43] LABS: Anisocytosis Moderate; Basophils % (A) 0 %; Eosinophils # (A) 0.1 k/uL (0-0.7); Eosinophils % (A) 1 %; HCT 23.6 % (39.0-53.0); HGB 7.2 gm/dL (13.0-17.5); Hypochromasia Marked; Lymphocytes # (A) 0.6 k/uL (1.0-4.8); Lymphocytes % (A) 4 %; MCH 25.7 pg (25.0-35.0); MCHC 30.3 g/dL (31.0-37.0); MCV 84.7 fL (80.0-100.0); Mean Platelet Volume 8.5; Microcytosis Slight; Monocytes # (A) 0.6 k/uL (0-1.0); Monocytes % (A) 4 %; Neutrophils % (A) 91 %; Platelet Count 317 k/uL (150-450); RBC 2.79 m/uL (4.30-5.90); RDW 23.7 % (11.5-15.5); WBC 15.4 k/uL (3.8-10.6)
[2023-11-09 05:48] LABS: Magnesium 1.8 mg/dL (1.6-2.3)
[2023-11-09 06:02] LABS: ALT 12 U/L (4-49); AST 54 U/L (17-59); African American GFR (CKD) 22 (>60 ml/min/1.73 sqM); Albumin 1.9 g/dL (3.5-5.0); Alkaline Phosphatase 149 U/L (38-126); Anion Gap 11 mmol/L; Blood Urea Nitrogen 54 mg/dL (9-20); Calcium 6.8 mg/dL (8.4-10.2); Carbon Dioxide 21 mmol/L (22-30); Chloride 105 mmol/L (98-107); Glucose 116 mg/dL (74-99); Non-African American GFR(CKD) 19 (>60 ml/min/1.73 sqM); Potassium 4.2 mmol/L (3.5-5.1); Sodium 137 mmol/L (137-145); Total Bilirubin 1.2 mg/dL (0.2-1.3); Total Protein 4.7 g/dL (6.3-8.2)
[2023-11-09 06:21] LABS: ABG Base Excess -0.8 mmol/L; ABG HCO3 24 mmol/L (21-25); ABG Oxygen Saturation 99.6 % (94-97); ABG PCO2 36 mmHg (35-45); ABG PH 7.42 (7.35-7.45); ABG PO2 139 mmHg (83-108); ABG TCO2 25 mmol/L (19-24); Allen Test Performed? Yes
[2023-11-09] MEDS: MAGNESIUM SULFATE-D5W PMX 1 GM in DEXTROSE/WATER 1 100ML.BAG IVPB ONE (07:40)
--- NOTE | 2023-11-09 08:54 | XR ---
EXAMINATION TYPE: XR chest 1V portable DATE OF EXAM: 11/09/2023 Comparison: 11/08/2023 Clinical History: 63-year-old male mechanical ventilation Findings: The satisfactory. NG tube sidehole remains in above the GE junction level. Consider further advanceme nt by approximately 5 cm. Right IJ CVC tip at the lower SVC level. Heart borderline enlarged. Bibasil ar hazy opacities extending up to the mid lumbar levels. Impression: 1. The NG tube sidehole remains above the GE junction level. Consider advancement by approximately 5 cm and reassess at follow-up. 2. Worsening mid and lower lung opacities, likely partially layering pleural effusions with adjacent atelectasis and/or consolidation.
--- NOTE | 2023-11-09 09:55 | P.PN ---
Subjective Progress Note Date: 11/09/23 The patient is a 63-year-old male with multiple comorbid conditions. He is currently admitted to the hospital after undergoing debridement of lower extremity wounds, which was complicated by cellulitis. During his admission he was found to have pneumoperitoneum and underwent exploratory laparotomy where he he had a perforated gastric ulcer. The patient remains sedated on ventilator as well as on Levophed for supportive treatment. 11/08/23: Patient remains intubated and sedated on ventilator with Levophed. Heart rates are in the low 100s. Plan for attempted weaning trial from ventilator, however nursing staff states he does not follow commands off of sedation. Echocardiogram results reveal LV function at 55 to 60% and no significant valvular abnormalities. 11/09/23: patient is unable to wean from ventilator. He remains on low-dose Levophed. Heart rates are well controlled. Patient is postop day 5 from perforated gastric ulcer, therefore there is no parental access. Continue rate control strategy for atrial fibrillation. GENERAL: Ill-appearing. Currently sedated on ventilator. NECK: Supple without JVD or thyromegaly. LUNGS: Breath sounds coarse to auscultation bilaterally. Respiration equal and unlabored. Bilateral rhonchi. HEART: Irregular rate and rhythm without murmurs, rubs or gallops. S1 and S2 heard. EXTREMITIES: Normal range of motion, +2 generalized edema. No clubbing or cyanosis. Peripheral pulses intact and strong. TELEMETRY: Rate controlled atrial fibrillation in the low 100s IMPRESSION: Persistent A. fib with controlled ventricular rates Septic shock Perforated gastric ulcer status post repair Cellulitis Anemia PAD AAA Acute kidney injury Tobacco abuse PLAN: Continue supportive treatment resume home dose of beta blockers once patient is able to take parental medications No further recommendations from the cardiac standpoint I am dictating on behalf of Dr Godwin Pierre's history/physical and assessment/plan. Objective - Vital Signs Vital signs: Vital Signs Temp 98.2 F 11/09/23 08:00 Pulse 94 11/09/23 08:23 Resp 16 11/09/23 08:00 BP 103/63 11/06/23 03:00 Pulse Ox 100 11/09/23 08:00 FiO2 35 11/09/23 08:00 Intake & Output 11/08/23 11/09/23 11/09/23 18:59 06:59 18:59 Intake Total 919.675 789.458 467.236 Output Total 1830 750 370 Balance -910.325 39.458 97.236 Weight 96.4 kg 95.6 kg Intake: IV 628 326 132 Calcium Gluconate in NaCl 100 1 gm In Saline 1 100ml. bag @ 100 mls/hr IVPB ONCE [facility] Rx#:[id number] DAPTOmycin 500 mg In 100 Sodium Chloride 0.9% 50 ml @ 100 mls/hr IVPB Q24HR [facility] Rx#:[id number] Dextrose 5% in Water 1, 150 000 ml @ 125 mls/hr IV . Q9H12M [facility] with Sodium Bicarb (1 Meq/ml) 150 ml Rx#:[id number] Dextrose 5% in Water 1, 150 000 ml @ 75 mls/hr IV . [id number] [facility] with Sodium Bicarb (1 Meq/ml) 150 ml Rx#:[id number] KVO 80 110 20 Levofloxacin 250Mg-D5w 50 Pmx 250 mg In Dextrose/ Water 1 50ml.bag @ 50 mls /hr IVPB Q24H [facility] Rx#: [id number] Piperacillin-Tazobactam 3 100 100 .375 gm In Sodium Chloride 0.9% 100 ml @ 25 mls/hr IVPB Q8HR [facility] Rx# :[id number] Pressure lines 48 66 12 Intake, IV Titration 291.675 463.458 335.236 Amount Anidulafungin 100 mg In 130 Sodium Chloride 0.9% 100 ml @ 84 mls/hr IVPB DAILY [facility] Rx#:[id number] Magnesium Sulfate-D5w Pmx 100 1 gm In Dextrose/Water 1 100ml.bag @ 100 mls/hr IVPB ONCE ONE Rx#: [id number] Mvi, Adult No.4 with Vit 30 K 10 ml Trace (Conc-1Ml/ Dose) 1 ml Sodium Acetate 30 meq Potassium Chloride 40 meq Calcium Gluconate 1 gm Magnesium Sulfate gm 1 gm In Amino Acids 5 %/Dextrose 20 % 1 ,000 ml @ 30 mls/hr IV . Q24H [facility] Rx#:[id number] [facility], Adult No.4 with Vit 90 K 10 ml Trace (Conc-1Ml/ Dose) 1 ml Sodium Acetate 30 meq Potassium Chloride 40 meq Calcium Gluconate 1 gm Magnesium Sulfate gm 1 gm In Amino Acids 5 %/Dextrose 20 % 1 ,000 ml @ 32 mls/hr IV . Q24H [facility] Rx#:[id number] Norepinephrine 4 mg In 22.386 183.940 Sodium Chloride 0.9% 250 ml @ 0.03 MCG/KG/MIN 9. 851 mls/hr IV .Q24H [facility] Rx#:[id number] Piperacillin-Tazobactam 3 100 .375 gm In Sodium Chloride 0.9% 100 ml @ 25 mls/hr IVPB Q8HR [facility] Rx# :[id number] propofoL 1,000 mg In 79.289 279.518 75.236 Empty Bag 1 bag @ 15 MCG/ KG/MIN 7.757 mls/hr IV . [id number] [facility] Rx#:[id number] Output: Drainage 660 120 210 Abdomen 500 Right 160 120 210 Urine 1170 630 160 Other: Voiding Method Indwelling Catheter Indwelling Catheter Indwelling Catheter ABP, PAP, CO, CI - Last Documented Arterial Blood Pressure 119/63 - Labs CBC & Chem 7: 11/09/23 05:00 11/09/23 05:00 Labs: Abnormal Lab Results - Last 24 Hours (Table) 11/08/23 11/08/23 11/08/23 Range/Units 04:52 11:34 11:35 WBC (3.8-10.6) k/uL RBC (4.30-5.90) m/uL Hgb (13.0-17.5) gm/dL Hct (39.0-53.0) % MCHC (31.0-37.0) g/dL RDW (11.5-15.5) % Neutrophils # (1.3-7.7) k/uL Lymphocytes # (1.0-4.8) k/uL ABG pO2 (83-108) mmHg ABG Total CO2 (19-24) mmol/L ABG O2 Saturation (94-97) % Carbon Dioxide (22-30) mmol/L BUN (9-20) mg/dL Creatinine (0.66-1.25) mg/dL Glucose (74-99) mg/dL POC Glucose (mg/dL) 113 H (70-110) mg/dL Calcium (8.4-10.2) mg/dL Ionized Calcium Negra (4.5-5.3) mg/dL Phosphorus 5.1 H (2.5-4.5) mg/dL Alkaline Phosphatase (38-126) U/L Total Protein (6.3-8.2) g/dL Albumin (3.5-5.0) g/dL Triglycerides 174.00 H (0.00-149.00) mg/dL 11/08/23 11/08/23 11/09/23 Range/Units 18:05 23:58 00:02 WBC (3.8-10.6) k/uL RBC (4.30-5.90) m/uL Hgb (13.0-17.5) gm/dL Hct (39.0-53.0) % MCHC (31.0-37.0) g/dL RDW (11.5-15.5) % Neutrophils # (1.3-7.7) k/uL Lymphocytes # (1.0-4.8) k/uL ABG pO2 (83-108) mmHg ABG Total CO2 (19-24) mmol/L ABG O2 Saturation (94-97) % Carbon Dioxide (22-30) mmol/L BUN (9-20) mg/dL Creatinine (0.66-1.25) mg/dL Glucose (74-99) mg/dL POC Glucose (mg/dL) 117 H 54 L 126 H (70-110) mg/dL Calcium (8.4-10.2) mg/dL Ionized Calcium Negra (4.5-5.3) mg/dL Phosphorus (2.5-4.5) mg/dL Alkaline Phosphatase (38-126) U/L Total Protein (6.3-8.2) g/dL Albumin (3.5-5.0) g/dL Triglycerides (0.00-149.00) mg/dL 11/09/23 11/09/23 11/09/23 Range/Units 05:00 05:00 05:00 WBC 15.4 H (3.8-10.6) k/uL RBC 2.79 L (4.30-5.90) m/uL Hgb 7.2 L (13.0-17.5) gm/dL Hct 23.6 L (39.0-53.0) % MCHC 30.3 L (31.0-37.0) g/dL RDW 23.7 H (11.5-15.5) % Neutrophils # 14.0 H (1.3-7.7) k/uL Lymphocytes # 0.6 L (1.0-4.8) k/uL ABG pO2 (83-108) mmHg ABG Total CO2 (19-24) mmol/L ABG O2 Saturation (94-97) % Carbon Dioxide 21 L (22-30) mmol/L BUN 54 H (9-20) mg/dL Creatinine 3.27 H (0.66-1.25) mg/dL Glucose 116 H (74-99) mg/dL POC Glucose (mg/dL) (70-110) mg/dL Calcium 6.8 L (8.4-10.2) mg/dL Ionized Calcium Negra 4.0 L (4.5-5.3) mg/dL Phosphorus 6.0 H (2.5-4.5) mg/dL Alkaline Phosphatase 149 H (38-126) U/L Total Protein 4.7 L (6.3-8.2) g/dL Albumin 1.9 L (3.5-5.0) g/dL Triglycerides (0.00-149.00) mg/dL 11/09/23 11/09/23 Range/Units 05:01 06:17 WBC (3.8-10.6) k/uL RBC (4.30-5.90) m/uL Hgb (13.0-17.5) gm/dL Hct (39.0-53.0) % MCHC (31.0-37.0) g/dL RDW (11.5-15.5) % Neutrophils # (1.3-7.7) k/uL Lymphocytes # (1.0-4.8) k/uL ABG pO2 139 H (83-108) mmHg ABG Total CO2 25 H (19-24) mmol/L ABG O2 Saturation 99.6 H (94-97) % Carbon Dioxide (22-30) mmol/L BUN (9-20) mg/dL Creatinine (0.66-1.25) mg/dL Glucose (74-99) mg/dL POC Glucose (mg/dL) 135 H (70-110) mg/dL Calcium (8.4-10.2) mg/dL Ionized Calcium Negra (4.5-5.3) mg/dL Phosphorus (2.5-4.5) mg/dL Alkaline Phosphatase (38-126) U/L Total Protein (6.3-8.2) g/dL Albumin (3.5-5.0) g/dL Triglycerides (0.00-149.00) mg/dL Microbiology - Last 24 Hours (Table) 11/05/23 16:40 Blood Culture - Preliminary Blood 11/05/23 20:30 Gram Stain - Final Sputum Sputum Culture - Final Stenotrophomonas maltophilia Doreen albicans
[2023-11-09] MEDS: DAPTOmycin 500 MG in SODIUM CHLORIDE 0.9% 50 ML IVPB SCH (10:55)
--- NOTE | 2023-11-09 11:45 | P.PN ---
Subjective he shouldn't is seen for follow-up for acute kidney injury. Patient remains on the vent. FiO2 is at 35%. started on TPN, currently at 15 mL an hour Urine output has improved to about 100-40 mL an hour. Serum creatinine at 3.27 today. Objective - Vital Signs Vital signs: Vital Signs Temp 98.2 F 11/09/23 08:00 Pulse 89 11/09/23 10:00 Resp 15 11/09/23 10:00 BP 103/63 11/06/23 03:00 Pulse Ox 98 11/09/23 10:00 FiO2 35 11/09/23 11:12 Intake & Output 11/08/23 11/09/23 11/09/23 18:59 06:59 18:59 Intake Total 919.675 789.458 559.236 Output Total 1830 750 830 Balance -910.325 39.458 -270.764 Weight 96.4 kg 95.6 kg Intake: IV 628 326 164 Calcium Gluconate in NaCl 100 1 gm In Saline 1 100ml. bag @ 100 mls/hr IVPB ONCE ONE Rx#:[id number] DAPTOmycin 500 mg In 100 Sodium Chloride 0.9% 50 ml @ 100 mls/hr IVPB Q24HR [facility] Rx#:[id number] Dextrose 5% in Water 1, 150 000 ml @ 125 mls/hr IV . Q9H12M [facility] with Sodium Bicarb (1 Meq/ml) 150 ml Rx#:[id number] Dextrose 5% in Water 1, 150 000 ml @ 75 mls/hr IV . [id number] [facility] with Sodium Bicarb (1 Meq/ml) 150 ml Rx#:[id number] KVO 80 110 40 Levofloxacin 250Mg-D5w 50 Pmx 250 mg In Dextrose/ Water 1 50ml.bag @ 50 mls /hr IVPB Q24H [facility] Rx#: [id number] Piperacillin-Tazobactam 3 100 100 .375 gm In Sodium Chloride 0.9% 100 ml @ 25 mls/hr IVPB Q8HR [facility] Rx# :[id number] Pressure lines 48 66 24 Intake, IV Titration 291.675 463.458 395.236 Amount Anidulafungin 100 mg In 130 Sodium Chloride 0.9% 100 ml @ 84 mls/hr IVPB DAILY [facility] Rx#:[id number] Magnesium Sulfate-D5w Pmx 100 1 gm In Dextrose/Water 1 100ml.bag @ 100 mls/hr IVPB ONCE ONE Rx#: [id number] Mvi, Adult No.4 with Vit 90 K 10 ml Trace (Conc-1Ml/ Dose) 1 ml Sodium Acetate 30 meq Potassium Chloride 40 meq Calcium Gluconate 1 gm Magnesium Sulfate gm 1 gm In Amino Acids 5 %/Dextrose 20 % 1 ,000 ml @ 30 mls/hr IV . Q24H ONE Rx#:[id number] Mvi, Adult No.4 with Vit 90 K 10 ml Trace (Conc-1Ml/ Dose) 1 ml Sodium Acetate 30 meq Potassium Chloride 40 meq Calcium Gluconate 1 gm Magnesium Sulfate gm 1 gm In Amino Acids 5 %/Dextrose 20 % 1 ,000 ml @ 32 mls/hr IV . Q24H [facility] Rx#:[id number] Norepinephrine 4 mg In 22.386 183.940 Sodium Chloride 0.9% 250 ml @ 0.03 MCG/KG/MIN 9. 851 mls/hr IV .Q24H [facility] Rx#:[id number] Piperacillin-Tazobactam 3 100 .375 gm In Sodium Chloride 0.9% 100 ml @ 25 mls/hr IVPB Q8HR [facility] Rx# :[id number] propofoL 1,000 mg In 79.289 279.518 75.236 Empty Bag 1 bag @ 15 MCG/ KG/MIN 7.757 mls/hr IV . [id number] [facility] Rx#:[id number] Output: Drainage 660 120 470 Abdomen 500 Right 160 120 470 Urine 1170 630 360 Other: Voiding Method Indwelling Catheter Indwelling Catheter Indwelling Catheter ABP, PAP, CO, CI - Last Documented Arterial Blood Pressure 109/55 - Exam Patient is sedated. Currently on the vent. FiO2 35%. Examination of the heart S1 and S2 Examination of the lungs bilateral breath sounds are heard Abdomen is dressed Bilateral lower extremities are wrapped. significant edema noted bilaterally 2+ along with significant scrotal edema. - Labs CBC & Chem 7: 11/09/23 05:00 11/09/23 05:00 Labs: Abnormal Lab Results - Last 24 Hours (Table) 11/08/23 11/08/23 11/08/23 Range/Units 04:52 11:34 18:05 WBC (3.8-10.6) k/uL RBC (4.30-5.90) m/uL Hgb (13.0-17.5) gm/dL Hct (39.0-53.0) % MCHC (31.0-37.0) g/dL RDW (11.5-15.5) % Neutrophils # (1.3-7.7) k/uL Lymphocytes # (1.0-4.8) k/uL ABG pO2 (83-108) mmHg ABG Total CO2 (19-24) mmol/L ABG O2 Saturation (94-97) % Carbon Dioxide (22-30) mmol/L BUN (9-20) mg/dL Creatinine (0.66-1.25) mg/dL Glucose (74-99) mg/dL POC Glucose (mg/dL) 117 H (70-110) mg/dL Calcium (8.4-10.2) mg/dL Ionized Calcium Negra (4.5-5.3) mg/dL Phosphorus 5.1 H (2.5-4.5) mg/dL Alkaline Phosphatase (38-126) U/L Total Protein (6.3-8.2) g/dL Albumin (3.5-5.0) g/dL Triglycerides 174.00 H (0.00-149.00) mg/dL 11/08/23 11/09/23 11/09/23 Range/Units 23:58 00:02 05:00 WBC (3.8-10.6) k/uL RBC (4.30-5.90) m/uL Hgb (13.0-17.5) gm/dL Hct (39.0-53.0) % MCHC (31.0-37.0) g/dL RDW (11.5-15.5) % Neutrophils # (1.3-7.7) k/uL Lymphocytes # (1.0-4.8) k/uL ABG pO2 (83-108) mmHg ABG Total CO2 (19-24) mmol/L ABG O2 Saturation (94-97) % Carbon Dioxide 21 L (22-30) mmol/L BUN 54 H (9-20) mg/dL Creatinine 3.27 H (0.66-1.25) mg/dL Glucose 116 H (74-99) mg/dL POC Glucose (mg/dL) 54 L 126 H (70-110) mg/dL Calcium 6.8 L (8.4-10.2) mg/dL Ionized Calcium Negra (4.5-5.3) mg/dL Phosphorus (2.5-4.5) mg/dL Alkaline Phosphatase 149 H (38-126) U/L Total Protein 4.7 L (6.3-8.2) g/dL Albumin 1.9 L (3.5-5.0) g/dL Triglycerides (0.00-149.00) mg/dL 11/09/23 11/09/23 11/09/23 Range/Units 05:00 05:00 05:01 WBC 15.4 H (3.8-10.6) k/uL RBC 2.79 L (4.30-5.90) m/uL Hgb 7.2 L (13.0-17.5) gm/dL Hct 23.6 L (39.0-53.0) % MCHC 30.3 L (31.0-37.0) g/dL RDW 23.7 H (11.5-15.5) % Neutrophils # 14.0 H (1.3-7.7) k/uL Lymphocytes # 0.6 L (1.0-4.8) k/uL ABG pO2 (83-108) mmHg ABG Total CO2 (19-24) mmol/L ABG O2 Saturation (94-97) % Carbon Dioxide (22-30) mmol/L BUN (9-20) mg/dL Creatinine (0.66-1.25) mg/dL Glucose (74-99) mg/dL POC Glucose (mg/dL) 135 H (70-110) mg/dL Calcium (8.4-10.2) mg/dL Ionized Calcium Negra 4.0 L (4.5-5.3) mg/dL Phosphorus 6.0 H (2.5-4.5) mg/dL Alkaline Phosphatase (38-126) U/L Total Protein (6.3-8.2) g/dL Albumin (3.5-5.0) g/dL Triglycerides (0.00-149.00) mg/dL 11/09/23 Range/Units 06:17 WBC (3.8-10.6) k/uL RBC (4.30-5.90) m/uL Hgb (13.0-17.5) gm/dL Hct (39.0-53.0) % MCHC (31.0-37.0) g/dL RDW (11.5-15.5) % Neutrophils # (1.3-7.7) k/uL Lymphocytes # (1.0-4.8) k/uL ABG pO2 139 H (83-108) mmHg ABG Total CO2 25 H (19-24) mmol/L ABG O2 Saturation 99.6 H (94-97) % Carbon Dioxide (22-30) mmol/L BUN (9-20) mg/dL Creatinine (0.66-1.25) mg/dL Glucose (74-99) mg/dL POC Glucose (mg/dL) (70-110) mg/dL Calcium (8.4-10.2) mg/dL Ionized Calcium Negra (4.5-5.3) mg/dL Phosphorus (2.5-4.5) mg/dL Alkaline Phosphatase (38-126) U/L Total Protein (6.3-8.2) g/dL Albumin (3.5-5.0) g/dL Triglycerides (0.00-149.00) mg/dL Microbiology - Last 24 Hours (Table) 11/05/23 16:40 Blood Culture - Preliminary Blood 11/05/23 20:30 Gram Stain - Final Sputum Sputum Culture - Final Stenotrophomonas maltophilia Doreen albicans Assessment and Plan Assessment: 1. Acute kidney injury, ATN, oliguric initially, currently nonoliguric secondary to hypotension and sepsis. Vancomycin noted upon initial admission however currently patient is maintained on daptomycin. He has received multiple fluid boluses. UA shows trace protein and small blood. No evidence of obstruction on CT of the abdomen. 2. Nongap metabolic acidosis secondary to acute kidney injury 3. Sepsis with septic shock from perforated viscus and bilateral lower extremity wounds. 4. Bilateral lower extremity wounds with wound cultures growing MRSA, Pseudomonas and Enterococcus faecalis. Patient is being followed by ID. 5. Acute hypoxic respiratory failure maintained on the vent 6. Volume overload and significant third spacing Plan: May repeat IV Lasix if the urine output drops again. Continue to avoid nephrotoxic agents.
[2023-11-09 11:58] LABS: Glucose,Whole Blood 108 mg/dL (70-110)
--- NOTE | 2023-11-09 12:13 | P.PN ---
Subjective Progress Note Date: 11/08/23 H&P Date: 10/30/23 Chief Complaint: Worsening bilateral lower legs, increased pain, edema and "split open" This is 63-year-old gentleman with past medical history significant for PAD, multiple vascular procedures including femoral-tibial bypass followed by wound development, dehiscence of his left lower extremity, status post recent excisional debridement of the left lower leg wound with skin substitute placement, excisional debridement of the left great toe wound and excisional debridement of right lower leg wound x 2 on 10/03/[address] Inman, vascular surgery, presented to the ER with worsening bilateral lower extremity pain, edema, reports right lower extremity "split open" over the last week with serous drainage. His visiting nurse evaluated patient on Monday recommending ER. Denies any chest pain, palpitations or shortness of breath. Denies nausea vomiting or diarrhea. Denies abdominal pain. Denies fever or chills. Denies lightheadedness, dizziness or focal deficits. Wound and blood cultures obtained, initiated on vancomycin in the ER. Tmax 101, WBC 16.3, increased to 19.67, CRP 12.6 .hemoglobin 7.7, platelets 468. Sodium 129, potassium 3.3, bicarb 19, BUN 10, creatinine 0.7. Lactic acid 2.2, improved with IV fluid hy dration, 1.1. Magnesium 1-repeat level ordered stat. 10/31/2023 Tmax 101. WBC decreased to 15.1. reports decreased appetite. Sodium decreased to 127, renal function stable. Potassium 3.9, magnesium 1.2 - supplements ordered. Positive pain of bilateral lower extremities. Evaluated by infectious disease, antibiotics adjusted to Zyvox and meropenem. Denies chest pain, palpitations or shortness of breath. 11/01/2023 wound cultures growing Pseudomonas and Enterococcus faecalis, vancomycin and penicillin sensitive, afebrile, WBC up to 20.06, antibiotics further adjusted to Zosyn and daptomycin. Renal function stable. IV fluids adjusted yesterday to D5.9 with sodium improved up to 130. 11/02/2023 maintained on IV antibiotics as per ID. Afebrile, WBC decreased to 17.3. Hemoglobin 9.1, platelets 523. Sodium 131 on IV fluids of D5.9. Potassium 3.8, magnesium 1.8, creatinine 0.9. Pain controlled , denies chest pain, palpitations or shortness of breath, maintaining O2 sats in the high 90s on room air. Scheduled for debridement and deep cultures tomorrow with vascular surgery. 11/07/2023 remains vent dependent with FiO2 35%/5 of PEEP. Maintained on diprovan, Levophed and bicarb drips. Bicarb 20, BUN 53, creatinine 2.84. continues on daptomycin, Eraxis, Zosyn. WBC 21, afebrile. Receiving potassium supplementation for potassium 3.3. Hemoglobin 7.1, platelets 477. 11/08/2023 Vent dependent, FiO2 35%/+5 of PEEP. Unsuccessful weaning trial yesterday, not following commands. Scheduled for another weaning trial today. Bicarb 23, bicarb drip discontinued. Levophed resumed after being off for few hours during the night. Echo reported EF 55 to 60%. Telemetry atrial f ibrillation with controlled ventricular rates, cardiology following. Staff reported earlier this morning right foot noted to be cooler, mottled, improved with rewrapping of Abhijeet wrap's -less tight. TPN ordered. Objective - Vital Signs Vital signs: Vital Signs Temp 98.6 F 11/08/23 12:00 Pulse 105 H 11/08/23 15:00 Resp 17 11/08/23 15:00 BP 103/63 11/06/23 03:00 Pulse Ox 100 11/08/23 15:00 FiO2 35 11/08/23 15:11 Intake & Output 11/07/23 11/08/23 11/08/23 18:59 06:59 18:59 Intake Total 2702.172 1353.602 570.386 Output Total 2315 1135 1230 Balance 387.172 218.602 -659.614 Weight 94.1 kg 96.4 kg 96.4 kg Intake: IV 8135 975 548 Calcium Gluconate in NaCl 100 1 gm In Saline 1 100ml. bag @ 100 mls/hr IVPB ONCE ONE Rx#:[id number] DAPTOmycin 500 mg In 50 100 Sodium Chloride 0.9% 50 ml @ 100 mls/hr IVPB Q24HR [facility] Rx#:[id number] Dextrose 5% in Water 1, 1625 975 150 000 ml @ 125 mls/hr IV . Q9H12M [facility] with Sodium Bicarb (1 Meq/ml) 150 ml Rx#:[id number] Dextrose 5% in Water 1, 150 000 ml @ 75 mls/hr IV . [id number] [facility] with Sodium Bicarb (1 Meq/ml) 150 ml Rx#:[id number] KVO 30 Piperacillin-Tazobactam 3 300 .375 gm In Sodium Chloride 0.9% 100 ml @ 25 mls/hr IVPB Q8HR [facility] Rx# :[id number] Potassium Chloride 20 meq 400 In Water For Injection 1 100ml.bag @ 50 mls/hr IVPB Q2H [facility] Rx#: [id number] Pressure lines 18 Intake, IV Titration 327.172 378.602 22.386 Amount Norepinephrine 4 mg In 103.887 122.093 22.386 Sodium Chloride 0.9% 250 ml @ 0.03 MCG/KG/MIN 9. 851 mls/hr IV .Q24H [facility] Rx#:[id number] propofoL 1,000 mg In 223.285 256.509 Empty Bag 1 bag @ 15 MCG/ KG/MIN 7.757 mls/hr IV . [id number] [facility] Rx#:[id number] Output: Drainage 1300 680 560 Abdomen 350 400 500 Right 950 280 60 Urine 1015 455 670 Other: Voiding Method Indwelling Catheter Indwelling Catheter Indwelling Catheter ABP, PAP, CO, CI - Last Documented Arterial Blood Pressure 105/56 - Exam PHYSICAL EXAM: VITAL SIGNS: [As above] GENERAL: Sedated and intubated on mechanical ventilation HEENT: Normocephalic, atraumatic ,conjunctivae normal. NECK: Supple, no JVD. CARDIOVASCULAR: S1, S2 regular. Irregular, no murmur. RESPIRATION: Unlabored, equal air entry breath sounds diminished in the bases. ABDOMEN: Soft, nondistended, status post surgery, wound VAC, SANDY drain with serosanguineous drainage. LEGS: Bilateral lower extremities' Abhijeet wrap dressings clean dry and intact, NERVOUS SYSTEM: Unable to evaluate at this time, sedated and intubated Skin: Warm and dry, no rash - Labs CBC & Chem 7: 11/09/23 05:00 11/09/23 05:00 Labs: Abnormal Lab Results - Last 24 Hours (Table) 11/07/23 11/08/23 11/08/23 Range/Units 18:16 04:52 04:52 WBC 12.8 H (3.8-10.6) k/uL RBC 2.72 L (4.30-5.90) m/uL Hgb 7.0 L (13.0-17.5) gm/dL Hct 22.7 L (39.0-53.0) % RDW 24.1 H (11.5-15.5) % Neutrophils # 11.7 H (1.3-7.7) k/uL Lymphocytes # 0.5 L (1.0-4.8) k/uL ABG pH (7.35-7.45) ABG pCO2 (35-45) mmHg ABG pO2 (83-108) mmHg ABG Total CO2 (19-24) mmol/L ABG O2 Saturation (94-97) % BUN 52 H (9-20) mg/dL Creatinine 3.07 H (0.66-1.25) mg/dL Glucose 104 H (74-99) mg/dL POC Glucose (mg/dL) 122 H (70-110) mg/dL Calcium 6.4 L* (8.4-10.2) mg/dL Phosphorus (2.5-4.5) mg/dL 11/08/23 11/08/23 11/08/23 Range/Units 04:52 06:11 11:35 WBC (3.8-10.6) k/uL RBC (4.30-5.90) m/uL Hgb (13.0-17.5) gm/dL Hct (39.0-53.0) % RDW (11.5-15.5) % Neutrophils # (1.3-7.7) k/uL Lymphocytes # (1.0-4.8) k/uL ABG pH 7.47 H (7.35-7.45) ABG pCO2 33 L (35-45) mmHg ABG pO2 145 H (83-108) mmHg ABG Total CO2 25 H (19-24) mmol/L ABG O2 Saturation 99.8 H (94-97) % BUN (9-20) mg/dL Creatinine (0.66-1.25) mg/dL Glucose (74-99) mg/dL POC Glucose (mg/dL) 113 H (70-110) mg/dL Calcium (8.4-10.2) mg/dL Phosphorus 5.1 H (2.5-4.5) mg/dL Microbiology - Last 24 Hours (Table) 11/05/23 20:30 Gram Stain - Final Sputum Sputum Culture - Final Stenotrophomonas maltophilia Doreen albicans 11/05/23 16:40 Blood Culture - Preliminary Blood 11/03/23 15:15 Anaerobic Culture - Final Other - Other 11/03/23 15:10 Anaerobic Culture - Final Other - Other Doreen albicans 11/03/23 15:15 Gram Stain - Final Other - Other Wound Culture - Final Pseudomonas aeruginosa Morganella morganii Enterococcus faecalis Assessment and Plan Assessment: Sepsis secondary to infected bilateral lower extremity wounds, cellulitis, recent excisional debridement of left lower leg wound with skin substitute placement, excisional debridement of the left great toe wound and excisional debridement of the right lower leg wound x 2 on 10/03/[address] Inman , vascular surgery. Cultures currently growing Pseudomonas aeruginosa and Enterococcus faecalis and MRSA. Status post debridement with deep cultures 830 reporting Pseudomonas Morganelli, Enterococcus faecalis and MRSA Perforated peptic ulcer and pneumoperitoneum status post exploratory laparotomy with gastric ulcer repair, modified Jasvir patch on 11/05/2023 Acute hypoxic respiratory failure, mechanical ventilator dependent Septic shock, requiring vasopressors Acute kidney injury, ATN secondary to sepsis, hypotension Metabolic acidosis secondary to the above, currently on bicarb drip History of Pseudomonas and VRE on last wound culture of left leg 10/03/2023, Lactic acidosis secondary to the above History of Left lower extremity skin dehiscence and wound infection,MSSA, status post excisional debridement and wound VAC. Left great toe ischemia status post excisional debridement History of left femoral tibial bypass secondary to critical limb ischemia History of aortic aneurysm with endovascular repair; Chronic Paroximal atrial fibrillation CAD, history of stent placement Essential hypertension Hyperlipidemia Nicotine dependence Daily alcohol use Noncompliance with medication regimen, patient is high risk for readmission. Iron deficient anemia Hypokalemia Hypomagnesemia Hyponatremia Plan: Continue current medication regimen, monitoring and symptomatic treatment. nutrition evaluated, TPN has been ordered. Weaning trials scheduled again for today. ICU management as per machine umbrella tipper;IV fluids, pressor support.antibiotics as per infectious disease. Prognosis guarded given multiple complex medical issues. The impression and plan of care has been dictated as directed. : I performed a history and examination of this patient, discussed the same with the dictator. I agree with the dictator's note ,documented as a scribe. Any additional findings or plans will be noted.
--- NOTE | 2023-11-09 14:13 | P.PN ---
Subjective Progress Note Date: 11/09/23 CHIEF COMPLAINT: Perforated gastric ulcer HISTORY OF PRESENT ILLNESS: patient is postop day #4 status post repair of perforated gastric ulcer. Patient remains in the ICU on mechanical ventilation. Patient remains on Levophed. He is undergoing a weaning trial today. Continues to have large output of ascites fluid from SANDY drain. Afebrile. WBC is up from 12-15 hemoglobin 7.2 creatinine 3.27. Patient has been started on TPN for nutrition support. PHYSICAL EXAM: VITAL SIGNS: Reviewed. GENERAL: Intubated. Currently off of sedation ABDOMEN: Soft. Prevena wound VAC intact with serosanguineous ascites fluid. SANDY drain serosanguineous ascites fluid ASSESSMENT: 1. Perforated gastric ulcer 2. Sepsis and septic shock 3. History of alcoholism 4. Severe protein calorie malnutrition PLAN: -Continue TPN for nutrition support -continue ICU management -Continue supportive care -Antibiotics per ID service -Continue IV Protonix Physician Demolition Worker note has been reviewed by physician. Signing provider agrees with the documented findings, assessment, and plan of care. Objective - Vital Signs Vital signs: Vital Signs Temp 98.1 F 11/09/23 12:00 Pulse 90 11/09/23 12:00 Resp 20 11/09/23 12:00 BP 103/63 11/06/23 03:00 Pulse Ox 99 11/09/23 12:00 FiO2 35 11/09/23 12:00 Intake & Output 11/08/23 11/09/23 11/09/23 18:59 06:59 18:59 Intake Total 919.675 789.458 651.236 Output Total 7733 512 8400 Balance -910.325 39.458 -613.764 Weight 96.4 kg 95.6 kg Intake: IV 628 326 196 Calcium Gluconate in NaCl 100 1 gm In Saline 1 100ml. bag @ 100 mls/hr IVPB ONCE ONE Rx#:[id number] DAPTOmycin 500 mg In 100 Sodium Chloride 0.9% 50 ml @ 100 mls/hr IVPB Q24HR [facility] Rx#:[id number] Dextrose 5% in Water 1, 150 000 ml @ 125 mls/hr IV . Q9H12M [facility] with Sodium Bicarb (1 Meq/ml) 150 ml Rx#:[id number] Dextrose 5% in Water 1, 150 000 ml @ 75 mls/hr IV . [id number] [facility] with Sodium Bicarb (1 Meq/ml) 150 ml Rx#:[id number] KVO 80 110 60 Levofloxacin 250Mg-D5w 50 Pmx 250 mg In Dextrose/ Water 1 50ml.bag @ 50 mls /hr IVPB Q24H [facility] Rx#: [id number] Piperacillin-Tazobactam 3 100 100 .375 gm In Sodium Chloride 0.9% 100 ml @ 25 mls/hr IVPB Q8HR [facility] Rx# :[id number] Pressure lines 48 66 36 Intake, IV Titration 291.675 463.458 455.236 Amount Anidulafungin 100 mg In 130 Sodium Chloride 0.9% 100 ml @ 84 mls/hr IVPB DAILY [facility] Rx#:[id number] Magnesium Sulfate-D5w Pmx 100 1 gm In Dextrose/Water 1 100ml.bag @ 100 mls/hr IVPB ONCE ONE Rx#: [id number] Mvi, Adult No.4 with Vit 150 K 10 ml Trace (Conc-1Ml/ Dose) 1 ml Sodium Acetate 30 meq Potassium Chloride 40 meq Calcium Gluconate 1 gm Magnesium Sulfate gm 1 gm In Amino Acids 5 %/Dextrose 20 % 1 ,000 ml @ 30 mls/hr IV . Q24H [facility] Rx#:[id number] [facility], Adult No.4 with Vit 90 K 10 ml Trace (Conc-1Ml/ Dose) 1 ml Sodium Acetate 30 meq Potassium Chloride 40 meq Calcium Gluconate 1 gm Magnesium Sulfate gm 1 gm In Amino Acids 5 %/Dextrose 20 % 1 ,000 ml @ 32 mls/hr IV . Q24H [facility] Rx#:[id number] Norepinephrine 4 mg In 22.386 183.940 Sodium Chloride 0.9% 250 ml @ 0.03 MCG/KG/MIN 9. 851 mls/hr IV .Q24H [facility] Rx#:[id number] Piperacillin-Tazobactam 3 100 .375 gm In Sodium Chloride 0.9% 100 ml @ 25 mls/hr IVPB Q8HR [facility] Rx# :[id number] propofoL 1,000 mg In 79.289 279.518 75.236 Empty Bag 1 bag @ 15 MCG/ KG/MIN 7.757 mls/hr IV . [id number] [facility] Rx#:[id number] Output: Drainage 660 120 730 Abdomen 500 Right 160 120 730 Urine 1170 630 535 Other: Voiding Method Indwelling Catheter Indwelling Catheter Indwelling Catheter ABP, PAP, CO, CI - Last Documented Arterial Blood Pressure 123/58 - Labs CBC & Chem 7: 11/09/23 05:00 11/09/23 05:00 Labs: Abnormal Lab Results - Last 24 Hours (Table) 11/08/23 11/08/23 11/08/23 Range/Units 11:34 18:05 23:58 WBC (3.8-10.6) k/uL RBC (4.30-5.90) m/uL Hgb (13.0-17.5) gm/dL Hct (39.0-53.0) % MCHC (31.0-37.0) g/dL RDW (11.5-15.5) % Neutrophils # (1.3-7.7) k/uL Lymphocytes # (1.0-4.8) k/uL ABG pO2 (83-108) mmHg ABG Total CO2 (19-24) mmol/L ABG O2 Saturation (94-97) % Carbon Dioxide (22-30) mmol/L BUN (9-20) mg/dL Creatinine (0.66-1.25) mg/dL Glucose (74-99) mg/dL POC Glucose (mg/dL) 117 H 54 L (70-110) mg/dL Calcium (8.4-10.2) mg/dL Ionized Calcium Negra (4.5-5.3) mg/dL Phosphorus (2.5-4.5) mg/dL Alkaline Phosphatase (38-126) U/L Total Protein (6.3-8.2) g/dL Albumin (3.5-5.0) g/dL Triglycerides 174.00 H (0.00-149.00) mg/dL 11/09/23 11/09/23 11/09/23 Range/Units 00:02 05:00 05:00 WBC 15.4 H (3.8-10.6) k/uL RBC 2.79 L (4.30-5.90) m/uL Hgb 7.2 L (13.0-17.5) gm/dL Hct 23.6 L (39.0-53.0) % MCHC 30.3 L (31.0-37.0) g/dL RDW 23.7 H (11.5-15.5) % Neutrophils # 14.0 H (1.3-7.7) k/uL Lymphocytes # 0.6 L (1.0-4.8) k/uL ABG pO2 (83-108) mmHg ABG Total CO2 (19-24) mmol/L ABG O2 Saturation (94-97) % Carbon Dioxide 21 L (22-30) mmol/L BUN 54 H (9-20) mg/dL Creatinine 3.27 H (0.66-1.25) mg/dL Glucose 116 H (74-99) mg/dL POC Glucose (mg/dL) 126 H (70-110) mg/dL Calcium 6.8 L (8.4-10.2) mg/dL Ionized Calcium Negra (4.5-5.3) mg/dL Phosphorus (2.5-4.5) mg/dL Alkaline Phosphatase 149 H (38-126) U/L Total Protein 4.7 L (6.3-8.2) g/dL Albumin 1.9 L (3.5-5.0) g/dL Triglycerides (0.00-149.00) mg/dL 11/09/23 11/09/23 11/09/23 Range/Units 05:00 05:01 06:17 WBC (3.8-10.6) k/uL RBC (4.30-5.90) m/uL Hgb (13.0-17.5) gm/dL Hct (39.0-53.0) % MCHC (31.0-37.0) g/dL RDW (11.5-15.5) % Neutrophils # (1.3-7.7) k/uL Lymphocytes # (1.0-4.8) k/uL ABG pO2 139 H (83-108) mmHg ABG Total CO2 25 H (19-24) mmol/L ABG O2 Saturation 99.6 H (94-97) % Carbon Dioxide (22-30) mmol/L BUN (9-20) mg/dL Creatinine (0.66-1.25) mg/dL Glucose (74-99) mg/dL POC Glucose (mg/dL) 135 H (70-110) mg/dL Calcium (8.4-10.2) mg/dL Ionized Calcium Negra 4.0 L (4.5-5.3) mg/dL Phosphorus 6.0 H (2.5-4.5) mg/dL Alkaline Phosphatase (38-126) U/L Total Protein (6.3-8.2) g/dL Albumin (3.5-5.0) g/dL Triglycerides (0.00-149.00) mg/dL Microbiology - Last 24 Hours (Table) 11/05/23 16:40 Blood Culture - Preliminary Blood 11/05/23 20:30 Gram Stain - Final Sputum Sputum Culture - Final Stenotrophomonas maltophilia Doreen albicans
--- NOTE | 2023-11-09 14:49 | P.PN ---
Subjective Progress Note Date: 11/09/23 Patient is a 63-year-old white male with past medical history significant for chronic bilateral lower extremity wounds with multiple previous debridements, peripheral vascular disease, recent femoropopliteal artery bypass, AAA, coronary artery disease, hyperlipidemia, hypertension, and tobacco dependence. He is currently intubated to the mechanical ventilator in the intensive care unit, and unable to provide any information for HPI. Apparently, he presented to the emergency department on 10/29/2023 with his lower extremity wounds and suspected cellulitis/sepsis. He follows with vascular surgery. On 11/03/2023 he did undergo debridement of his bilateral lower extremity wounds. Wound cultures p ositive for polymicrobial organisms including Pseudomonas aeruginosa, MRSA, Enterococcus faecalis. Antibiotics are being directed by infectious disease. Yesterday, on 11/05/2023 the patient was having some abdominal pain and issues with hypotension. A rapid response was called. CT of the abdomen and pelvis without contrast demonstrated a pneumoperitoneum. Patient was then taken to the operating room yesterday evening for an exploratory laparotomy, was found to have a perforated gastric ulcer; subsequently underwent repair with a modified Jasvir patch. Patient was transferred back to the intensive care unit in critical condition. Currently, patient is being evaluated in the intensive care unit intubated to the mechanical ventilator. Most recent ABGs consistent with profound metabolic acidosis. PaO2 327, pCO2 45, pH of 7.12. He was given 3 A of sodium bicarbonate. Current ventilator settings include assist-control, respiratory rate 16, tidal volume 450, FiO2 50%, and PEEP of 5. Chest x-ray, showing the tip of the endotracheal tube in a proximal position, approximately 9 cm above the prince. Nasogastric tube within the stomach. There is a left- sided pleural effusion. Dr. Crystal previously had the endotracheal tube advanced 3 cm. Patient is currently sedated on propofol which is infusing at 25 mcg/kg/min. He is synchronous with mechanical ventilator. Remains hypotensive, currently requiring vasopressors in the form of norepinephrine which is infusing at 0.1 mcg/kg/min. Postoperatively, the patient was fluid resuscitated with a total of 2 L crystalloid fluid. Lactated Ringer's also infusing at 125 mL/h. CVP is reading 8 mmHg. Patient has remained anuric. Heart rhythm appears atrial fibrillation with controlled ventricular response ranging from 80 to 90 bpm. Patient does have history of A-fib, not on any anticoagulation currently. Patient's abdominal incision has a wound VAC, and there is a compressed SANDY drain that is drained a total of 510 mL of serosanguineous output since surgery. Patient is currently covered on a combination of Zosyn, daptomycin, and Eraxis, which are being directed by infectious disease. Currently, hypothermic with external warming blanket on. Postoperative CBC: WBC count 31.8, hemoglobin 9.4, hematocrit 32.7, platelets 647. Postoperative BMP: Sodium 135, potassium 4.2, chloride 112, serum bicarb 12, BUN 53, creatinine 2.46, glucose 120. Overall, prognosis is guarded. On 11/07/2023, the patient is being seen for a follow-up. The patient remains intubated on the mechanical ventilator. This morning, the patient is sedated on propofol which is running at 40 mcg/kg/min. The patient remains intubated on mechanical ventilator on assist-control mode rate of 16, tidal volume of 450, FiO2 of 35% with a PEEP of 5. Chest x-ray shows consolidation of the lung bases more so on the left. ET tube is in good location. The patient also has an NG tube in place. The blood gas showed a pH of 7.42 with a pCO2 of 31 and pO2 of 87. No significant extra secretion the patient is currently intubated by #8 orotracheal tube. Hemodynamically, the patient remains on low-dose norepinephrine which is running at 0.05 mcg/kg/min. The patient is on a bicarb infusion running at 125 cc an hour. Output from the SANDY drain is quite extensive approximately 500 cc of serous material over the past 8 hours. The patient remains on the same antibiotic coverage and this includes Zosyn, daptomycin and Eraxis. On today's evaluation, the patient's white cell count is at 21 with a hemoglobin 7.1 and a platelet count of 477. BUN is 53 with a creatinine of 2.8 and a sodium levels at 137. The potassium levels of 3.3. Serum bicarb is at 20. Cultures from the wound is positive for Pseudomonas aeruginosa, Morganella and Enterococcus faecalis. Sputum sample is still negative for the time being. The patient is afebrile. The wounds in the lower extremity are appropriately dressed. Noted the patient has undergone multiple previous debridements of the lower extremity wounds. He is known to have severe PAD vascular disease. He is status post femoropopliteal bypass surgery. He is also known to have abdominal aortic aneurysm status post endovascular grafting along with coronary artery disease and hypertension hyperlipidemia. The patient is also status post gastric perforation with pneumoperitoneum requiring immediate surgical interventionAnd the patient has undergone exploratory laparotomy and repair of the perforated gastric ulcer with a modified Jasvir patch technique. Surgery was done on 11/05/2023 and the patient is currently postop day #2. He remains n.p.o. for now. On today's evaluation of 11/08/2023, the patient is being seen for a follow-up. Noted this morning, the patient remains sedated on propofol which is running at 40 mcg/kg/min. The patient was given a sedation holiday which she essentially failed. He did not recover his mentation and the patient was essentially thrashing and becoming asynchronous with mechanical ventilator and the trial was aborted. As such, the patient was kept on mechanical ventilator and earlier this morning the patient was on assist-control mode at rate of 16, tidal volume of 450, FiO2 of 35% with a PEEP of 5. Chest x-ray remains unchanged and the patient has consolidation lower lungs bilaterally and possibly some underlying pleural effusions. Blood gas showed a pH of 7.47 with a pCO2 of 33 and pO2 of 145. The patient remains in atrial fibrillation. The patient remains on pressors and norepinephrine is running at 0.03 mcg/kg/min. The patient remains NPO. Output from the NG tube is minimal at this point in time. Output from the SANDY drain was noted and it is in the order of 1.2 L of serous material over the past 24 hours. The surgical wound site is dry clean and intact. Wound VAC is also in place. The overall fluid balance over the past 24 hours is positive for 0.4 L. This sputum sample is positive for stenotrophomonas and Doreen. The current antibiotic coverage includes a combination of Eraxis, daptomycin and Zosyn. Blood work from today shows a WBC count of 12.8, hemoglobin of 7 and a platelet count of 316. BUN is 52 with a creatinine of 3.07 and a sodium levels at 137 and potassium level is at 3.9. Calcium level is low at 6.4. Phosphorus level is at 5.1. Triglycerides at 174. Patient is afebrile. The patient is currently postop day #3 following a repair of a perforated gastric ulcer with a modified Jasvir patch technique. Surgery was done on 11/05/2023. 11/09/2023, the patient is being seen for a follow-up. The patient remains intubated on the mechanical ventilator. Several attempt to wean the patient off sedation. That the patient was encephalopathic and thrashing and was not following any commands. Based on that, the patient was kept on propofol and this morning the patient is on propofol running at 40 mcg/kg/min. Possibility of encephalopathy with rates metabolic encephalopathy, drug encephalopathy, ur emic/hepatic encephalopathy is to be considered. Possibility of an acute CVA in the setting of chronic atrial fibrillation cannot be completely ruled out. The patient is currently on a mechanical ventilator assist-control mode with a rate of 16, tidal volume of 450, FiO2 35% with a PEEP of 5. Blood gas showed a pH of 7.42 pCO2 pO2 of 139. The sputum sample was positive for stenotrophomonas and Levaquin was also added. The patient has no major respiratory secretions. Chest x-ray shows bilateral lower lobe consolidation/effusion. Hemodynamically, the patient is on no pressors. The SANDY drain is still draining approximately a liter of serosanguineous material on a daily basis and the wound VAC is still in place and the patient was started on TPN for nutritional support. Antibiotic coverage includes a combination of Zosyn, Eraxis and vancomycin. Patient is also suffering from an acute kidney injury. Creatinine is on the rise and this morning creatinine is at 3.27 with a BUN of 54. Sodium levels of 137, potassium of 4.2, LFTs are normal, albumin is at 1.9 with a total protein of 4.7. WBC count is at 15.4 with a hemoglobin of 7.2 and a platelet count of 315. Cardiac rhythm is atrial fibrillation with a controlled rate. Objective - Vital Signs Vital signs: Vital Signs Temp 98.2 F 11/09/23 08:00 Pulse 94 11/09/23 08:23 Resp 16 11/09/23 08:00 BP 103/63 11/06/23 03:00 Pulse Ox 100 11/09/23 08:00 FiO2 35 11/09/23 08:00 Intake & Output 11/08/23 11/09/23 11/09/23 18:59 06:59 18:59 Intake Total 919.675 789.458 467.236 Output Total 1830 750 370 Balance -910.325 39.458 97.236 Weight 96.4 kg 95.6 kg Intake: IV 628 326 132 Calcium Gluconate in NaCl 100 1 gm In Saline 1 100ml. bag @ 100 mls/hr IVPB ONCE ONE Rx#:[id number] DAPTOmycin 500 mg In 100 Sodium Chloride 0.9% 50 ml @ 100 mls/hr IVPB Q24HR [facility] Rx#:[id number] Dextrose 5% in Water 1, 150 000 ml @ 125 mls/hr IV . Q9H12M [facility] with Sodium Bicarb (1 Meq/ml) 150 ml Rx#:[id number] Dextrose 5% in Water 1, 150 000 ml @ 75 mls/hr IV . [id number] [facility] with Sodium Bicarb (1 Meq/ml) 150 ml Rx#:[id number] KVO 80 110 20 Levofloxacin 250Mg-D5w 50 Pmx 250 mg In Dextrose/ Water 1 50ml.bag @ 50 mls /hr IVPB Q24H [facility] Rx#: [id number] Piperacillin-Tazobactam 3 100 100 .375 gm In Sodium Chloride 0.9% 100 ml @ 25 mls/hr IVPB Q8HR [facility] Rx# :[id number] Pressure lines 48 66 12 Intake, IV Titration 291.675 463.458 335.236 Amount Anidulafungin 100 mg In 130 Sodium Chloride 0.9% 100 ml @ 84 mls/hr IVPB DAILY [facility] Rx#:[id number] Magnesium Sulfate-D5w Pmx 100 1 gm In Dextrose/Water 1 100ml.bag @ 100 mls/hr IVPB ONCE ONE Rx#: [id number] Mvi, Adult No.4 with Vit 30 K 10 ml Trace (Conc-1Ml/ Dose) 1 ml Sodium Acetate 30 meq Potassium Chloride 40 meq Calcium Gluconate 1 gm Magnesium Sulfate gm 1 gm In Amino Acids 5 %/Dextrose 20 % 1 ,000 ml @ 30 mls/hr IV . Q24H [facility] Rx#:[id number] Mvi, Adult No.4 with Vit 90 K 10 ml Trace (Conc-1Ml/ Dose) 1 ml Sodium Acetate 30 meq Potassium Chloride 40 meq Calcium Gluconate 1 gm Magnesium Sulfate gm 1 gm In Amino Acids 5 %/Dextrose 20 % 1 ,000 ml @ 32 mls/hr IV . Q24H [facility] Rx#:[id number] Norepinephrine 4 mg In 22.386 183.940 Sodium Chloride 0.9% 250 ml @ 0.03 MCG/KG/MIN 9. 851 mls/hr IV .Q24H [facility] Rx#:[id number] Piperacillin-Tazobactam 3 100 .375 gm In Sodium Chloride 0.9% 100 ml @ 25 mls/hr IVPB Q8HR [facility] Rx# :[id number] propofoL 1,000 mg In 79.289 279.518 75.236 Empty Bag 1 bag @ 15 MCG/ KG/MIN 7.757 mls/hr IV . [id number] [facility] Rx#:[id number] Output: Drainage 660 120 210 Abdomen 500 Right 160 120 210 Urine 1170 630 160 Other: Voiding Method Indwelling Catheter Indwelling Catheter Indwelling Catheter ABP, PAP, CO, CI - Last Documented Arterial Blood Pressure 119/63 - Exam GENERAL EXAM: Sedated and intubated to the mechanical ventilator, synchronous mechanical ventilator, facial grimacing with deep painful stimuli, withdraws to pain in all 4 extremities HEAD: Normocephalic and atraumatic EYES: Normal reaction of pupils, equal size. NOSE: Clear with pink turbinates. THROAT: No erythema or exudates. NECK: No masses, no JVD. Right IJ central line catheter in place. CHEST: No chest wall deformity. LUNGS: Equal air entry with no crackles, wheeze, rhonchi or dullness. Intubated to mechanical ventilator, synchronous with current vent settings. Minimal endotracheal secretions. Peak pressures 28 CVS: S1 and S2 normal with no audible murmur, irregular rhythm. No extra heart sounds ABDOMEN: Midline abdominal incision with wound VAC, wound not approximated. SANDY drain compressed and draining serosanguineous output. Abdomen is soft, bowel so unds hypoactive, no appreciated organomegaly. The patient has a SANDY drain in place. Output is noted in the order of 1200 cc over the past 24 hours. SPINE: No scoliosis or deformity SKIN: Bilateral lower extremities wrapped in postoperative dressing/Abhijeet Kerlix wrap CENTRAL NERVOUS SYSTEM: Sedated on propofol, no focal deficits, withdraws to pain in all 4 extremities. EXTREMITIES: Bilateral lower extremities wrapped in Kerlix, distal pulses posterior tibial found with Doppler. Brachial arterial line in place with good arterial waveform. Bilateral radial pulses weak but palpable, capillary refill greater than 3 seconds. - Labs CBC & Chem 7: 11/09/23 05:00 11/09/23 05:00 Labs: Abnormal Lab Results - Last 24 Hours (Table) 11/08/23 11/08/23 11/08/23 Range/Units 04:52 11:34 11:35 WBC (3.8-10.6) k/uL RBC (4.30-5.90) m/uL Hgb (13.0-17.5) gm/dL Hct (39.0-53.0) % MCHC (31.0-37.0) g/dL RDW (11.5-15.5) % Neutrophils # (1.3-7.7) k/uL Lymphocytes # (1.0-4.8) k/uL ABG pO2 (83-108) mmHg ABG Total CO2 (19-24) mmol/L ABG O2 Saturation (94-97) % Carbon Dioxide (22-30) mmol/L BUN (9-20) mg/dL Creatinine (0.66-1.25) mg/dL Glucose (74-99) mg/dL POC Glucose (mg/dL) 113 H (70-110) mg/dL Calcium (8.4-10.2) mg/dL Ionized Calcium Negra (4.5-5.3) mg/dL Phosphorus 5.1 H (2.5-4.5) mg/dL Alkaline Phosphatase (38-126) U/L Total Protein (6.3-8.2) g/dL Albumin (3.5-5.0) g/dL Triglycerides 174.00 H (0.00-149.00) mg/dL 11/08/23 11/08/23 11/09/23 Range/Units 18:05 23:58 00:02 WBC (3.8-10.6) k/uL RBC (4.30-5.90) m/uL Hgb (13.0-17.5) gm/dL Hct (39.0-53.0) % MCHC (31.0-37.0) g/dL RDW (11.5-15.5) % Neutrophils # (1.3-7.7) k/uL Lymphocytes # (1.0-4.8) k/uL ABG pO2 (83-108) mmHg ABG Total CO2 (19-24) mmol/L ABG O2 Saturation (94-97) % Carbon Dioxide (22-30) mmol/L BUN (9-20) mg/dL Creatinine (0.66-1.25) mg/dL Glucose (74-99) mg/dL POC Glucose (mg/dL) 117 H 54 L 126 H (70-110) mg/dL Calcium (8.4-10.2) mg/dL Ionized Calcium Negra (4.5-5.3) mg/dL Phosphorus (2.5-4.5) mg/dL Alkaline Phosphatase (38-126) U/L Total Protein (6.3-8.2) g/dL Albumin (3.5-5.0) g/dL Triglycerides (0.00-149.00) mg/dL 11/09/23 11/09/23 11/09/23 Range/Units 05:00 05:00 05:00 WBC 15.4 H (3.8-10.6) k/uL RBC 2.79 L (4.30-5.90) m/uL Hgb 7.2 L (13.0-17.5) gm/dL Hct 23.6 L (39.0-53.0) % MCHC 30.3 L (31.0-37.0) g/dL RDW 23.7 H (11.5-15.5) % Neutrophils # 14.0 H (1.3-7.7) k/uL Lymphocytes # 0.6 L (1.0-4.8) k/uL ABG pO2 (83-108) mmHg ABG Total CO2 (19-24) mmol/L ABG O2 Saturation (94-97) % Carbon Dioxide 21 L (22-30) mmol/L BUN 54 H (9-20) mg/dL Creatinine 3.27 H (0.66-1.25) mg/dL Glucose 116 H (74-99) mg/dL POC Glucose (mg/dL) (70-110) mg/dL Calcium 6.8 L (8.4-10.2) mg/dL Ionized Calcium Negra 4.0 L (4.5-5.3) mg/dL Phosphorus 6.0 H (2.5-4.5) mg/dL Alkaline Phosphatase 149 H (38-126) U/L Total Protein 4.7 L (6.3-8.2) g/dL Albumin 1.9 L (3.5-5.0) g/dL Triglycerides (0.00-149.00) mg/dL 11/09/23 11/09/23 Range/Units 05:01 06:17 WBC (3.8-10.6) k/uL RBC (4.30-5.90) m/uL Hgb (13.0-17.5) gm/dL Hct (39.0-53.0) % MCHC (31.0-37.0) g/dL RDW (11.5-15.5) % Neutrophils # (1.3-7.7) k/uL Lymphocytes # (1.0-4.8) k/uL ABG pO2 139 H (83-108) mmHg ABG Total CO2 25 H (19-24) mmol/L ABG O2 Saturation 99.6 H (94-97) % Carbon Dioxide (22-30) mmol/L BUN (9-20) mg/dL Creatinine (0.66-1.25) mg/dL Glucose (74-99) mg/dL POC Glucose (mg/dL) 135 H (70-110) mg/dL Calcium (8.4-10.2) mg/dL Ionized Calcium Negra (4.5-5.3) mg/dL Phosphorus (2.5-4.5) mg/dL Alkaline Phosphatase (38-126) U/L Total Protein (6.3-8.2) g/dL Albumin (3.5-5.0) g/dL Triglycerides (0.00-149.00) mg/dL Microbiology - Last 24 Hours (Table) 11/05/23 16:40 Blood Culture - Preliminary Blood 11/05/23 20:30 Gram Stain - Final Sputum Sputum Culture - Final Stenotrophomonas maltophilia Doreen albicans Assessment and Plan Plan: Perforated gastric ulcer and pneumoperitoneum, status post exploratory laparotomy with gastric ulcer repair with modified Jasvir patch on 11/05/2023, the patient is postop day # 4. The patient remains n.p.o. and the patient was started on TPN for nutritional support. Acute hypoxic respiratory failure with bilateral lower lobe consolidation, consider possibility of pneumonia/effusion left worse than right. Furthermore, the sputum sample showed stenotrophomonas and Doreen. Consider the possibility of a hospital-acquired/ventilator acquired pneumonia with gram-negative infection. The patient is currently on Levaquin. Will avoid the use of Bactrim due to concerns of renal dysfunction. Septic shock with hypotension and shock, currently requiring vasopressors in the form of norepinephrine. Pressor have been discontinued, currently normotensive Sepsis and septic shock Severe nonanion gap metabolic acidosis, treated with a bicarb infusion, improved Bilateral lower extremity wounds/cellulitis, status-post debridement on 11/03/2023. Wounds positive for polymicrobial organisms including Pseudomonas aeruginosa, MRSA, Enterococcus faecalis. Antibiotics being directed by infectious disease specialist Peripheral vascular disease, with recent history of femoral popliteal artery bypass on 06/06/2023, subsequently, developing wound infection and dehiscence, undergoing multiple excisional debridements since then. Atrial fibrillation with controlled ventricular response Normocytic, normochromic anemia Acute leukocytosis Acute kidney injury secondary to hypotension and ATN, nonoliguric and the patient has a positive urine output. The patient remains nonoliguric History of hypertension History of hyperlipidemia History of coronary artery disease with previous stent placement History of AAA with previous endovascular repair History of alcoholism Chronic ongoing tobacco dependence Plan Continue vent support, no ventilator changes for today Unable to get this patient off sedation due to ongoing encephalopathy. As such, we will do a noncontrast CAT scan of the brain. Will check a serum ammonia level. Continue TPN for nutritional support and IV fluids are currently at KVO Given another sedation holiday today Pressors have been discontinued Keep the patient on same antibiotic coverage to include a combination of daptomycin, Eraxis and Zosyn, and Levaquin to cover the stenotrophomonas. Thuna peña, I would like to use Bactrim. Nevertheless based on his underlying renal failure, I am going to cover this patient with Levaquin and monitor his progress. Keep the patient NPO. Will discuss feeding with general surgery. TPN started Monitor hemodynamics Monitor renal function Condition is obviously critical and will continue to follow make further recommendations based on progress. This evaluation was done more than 30 minutes. Time with Patient: Greater than 30
--- NOTE | 2023-11-09 15:25 | CT ---
EXAMINATION TYPE: CT brain wo con CT DLP: 1184.4 mGycm, Automated exposure control for dose reduction was used. DATE OF EXAM: 11/09/2023 3:08 PM COMPARISON: 11/04/2023. CLINICAL INDICATION: Male, 63 years old with history of Altered mental status, AMS. TECHNIQUE: Brain: Axial CT images of the brain were obtained with coronal and sagittal reformats created and rev iewed. Contrast used: None. Oral contrast used: None. FINDINGS: Brain: Extra-axial spaces: No abnormal extra-axial fluid collections. Ventricular system: Dilatation in proportion to cerebral atrophy. Cerebral parenchyma: Cerebral atrophy. No acute intraparenchymal hemorrhage or mass effect. The serna -white junction is well differentiated. Scattered hypoattenuating areas are seen within the white mat ter. Cerebellum: Unremarkable. Mass effect: No evidence of midline shift. Intracranial vasculature: Atherosclerotic calcifications of the intracranial vessels. Soft tissues: Normal. Calvarium/osseous structures: No depressed skull fracture. Paranasal sinuses and mastoid air cells: Mild scattered paranasal sinus disease. Visualized orbits: Orbital contents are intact. Support tubes partially visualized. IMPRESSION: No acute intracranial process.
[2023-11-09] MEDS: MVI, ADULT NO.4 WITH VIT K 10 ML, TRACE (CONC-1ML/DOSE) 1 ML, SODIUM ACETATE 30 MEQ, PO... IV SCH (15:41)
--- NOTE | 2023-11-09 16:23 | P.PN ---
Subjective Progress Note Date: 11/09/23 H&P Date: 10/30/23 Chief Complaint: Worsening bilateral lower legs, increased pain, edema and "split open" This is 63-year-old gentleman with past medical history significant for PAD, multiple vascular procedures including femoral-tibial bypass followed by wound development, dehiscence of his left lower extremity, status post recent excisional debridement of the left lower leg wound with skin substitute placement, excisional debridement of the left great toe wound and excisional debridement of right lower leg wound x 2 on 10/03/[address] Inman, vascular surgery, presented to the ER with worsening bilateral lower extremity pain, edema, reports right lower extremity "split open" over the last week with serous drainage. His visiting nurse evaluated patient on Monday recommending ER. Denies any chest pain, palpitations or shortness of breath. Denies nausea vomiting or diarrhea. Denies abdominal pain. Denies fever or chills. Denies lightheadedness, dizziness or focal deficits. Wound and blood cultures obtained, initiated on vancomycin in the ER. Tmax 101, WBC 16.3, increased to 19.67, CRP 12.6 .hemoglobin 7.7, platelets 468. Sodium 129, potassium 3.3, bicarb 19, BUN 10, creatinine 0.7. Lactic acid 2.2, improved with IV fluid hy dration, 1.1. Magnesium 1-repeat level ordered stat. 10/31/2023 Tmax 101. WBC decreased to 15.1. reports decreased appetite. Sodium decreased to 127, renal function stable. Potassium 3.9, magnesium 1.2 - supplements ordered. Positive pain of bilateral lower extremities. Evaluated by infectious disease, antibiotics adjusted to Zyvox and meropenem. Denies chest pain, palpitations or shortness of breath. 11/01/2023 wound cultures growing Pseudomonas and Enterococcus faecalis, vancomycin and penicillin sensitive, afebrile, WBC up to 20.06, antibiotics further adjusted to Zosyn and daptomycin. Renal function stable. IV fluids adjusted yesterday to D5.9 with sodium improved up to 130. 11/02/2023 maintained on IV antibiotics as per ID. Afebrile, WBC decreased to 17.3. Hemoglobin 9.1, platelets 523. Sodium 131 on IV fluids of D5.9. Potassium 3.8, magnesium 1.8, creatinine 0.9. Pain controlled , denies chest pain, palpitations or shortness of breath, maintaining O2 sats in the high 90s on room air. Scheduled for debridement and deep cultures tomorrow with vascular surgery. 11/07/2023 remains vent dependent with FiO2 35%/5 of PEEP. Maintained on diprovan, Levophed and bicarb drips. Bicarb 20, BUN 53, creatinine 2.84. continues on daptomycin, Eraxis, Zosyn. WBC 21, afebrile. Receiving potassium supplementation for potassium 3.3. Hemoglobin 7.1, platelets 477. 11/08/2023 Vent dependent, FiO2 35%/+5 of PEEP. Unsuccessful weaning trial yesterday, not following commands. Scheduled for another weaning trial today. Bicarb 23, bicarb drip discontinued. Levophed resumed after being off for few hours during the night. Echo reported EF 55 to 60%. Telemetry atrial f ibrillation with controlled ventricular rates, cardiology following. Staff reported earlier this morning right foot noted to be cooler, mottled, improved with rewrapping of Abhijeet wrap's -less tight. TPN ordered. 11/09/2023 weaning trials attempted yesterday, patient was not following commands , not opening eyes ,shaking his head [id number]. Vent dependent, FiO2 35%/+5 of PEEP. Repeat weaning trial scheduled for today. continues on Levophed. Telemetry atrial fibrillation with controlled ventricular rate. continues to have large output from SANDY drain. Afebrile, WBC increased to 15.4. Hemoglobin 7.2, platelet count 317. Bicarb 21, BUN 54, creatinine 3.27. Sputum culture reporting stenotrophomonas maltophilia, Doreen albicans. Maintained on Zosyn, Eraxis and vancomycin. Objective - Vital Signs Vital signs: Vital Signs Temp 98.6 F 11/09/23 16:00 Pulse 98 11/09/23 16:00 Resp 15 11/09/23 16:00 BP 103/63 11/06/23 03:00 Pulse Ox 98 11/09/23 14:00 FiO2 35 11/09/23 16:00 Intake & Output 11/08/23 11/09/23 11/09/23 18:59 06:59 18:59 Intake Total 919.675 789.458 839.236 Output Total 5964 585 1822 Balance -910.325 39.458 -350.764 Weight 96.4 kg 95.6 kg Intake: IV 628 326 260 Calcium Gluconate in NaCl 100 1 gm In Saline 1 100ml. bag @ 100 mls/hr IVPB ONCE ONE Rx#:[id number] DAPTOmycin 500 mg In 100 Sodium Chloride 0.9% 50 ml @ 100 mls/hr IVPB Q24HR [facility] Rx#:[id number] Dextrose 5% in Water 1, 150 000 ml @ 125 mls/hr IV . Q9H12M [facility] with Sodium Bicarb (1 Meq/ml) 150 ml Rx#:[id number] Dextrose 5% in Water 1, 150 000 ml @ 75 mls/hr IV . [id number] [facility] with Sodium Bicarb (1 Meq/ml) 150 ml Rx#:[id number] KVO 80 110 100 Levofloxacin 250Mg-D5w 50 Pmx 250 mg In Dextrose/ Water 1 50ml.bag @ 50 mls /hr IVPB Q24H [facility] Rx#: [id number] Piperacillin-Tazobactam 3 100 100 .375 gm In Sodium Chloride 0.9% 100 ml @ 25 mls/hr IVPB Q8HR [facility] Rx# :[id number] Pressure lines 48 66 60 Intake, IV Titration 291.675 463.458 579.236 Amount Anidulafungin 100 mg In 130 Sodium Chloride 0.9% 100 ml @ 84 mls/hr IVPB DAILY [facility] Rx#:[id number] Magnesium Sulfate-D5w Pmx 100 1 gm In Dextrose/Water 1 100ml.bag @ 100 mls/hr IVPB ONCE ONE Rx#: [id number] Mvi, Adult No.4 with Vit 274 K 10 ml Trace (Conc-1Ml/ Dose) 1 ml Sodium Acetate 30 meq Potassium Chloride 40 meq Calcium Gluconate 1 gm Magnesium Sulfate gm 1 gm In Amino Acids 5 %/Dextrose 20 % 1 ,000 ml @ 30 mls/hr IV . Q24H [facility] Rx#:[id number] Mvi, Adult No.4 with Vit 90 K 10 ml Trace (Conc-1Ml/ Dose) 1 ml Sodium Acetate 30 meq Potassium Chloride 40 meq Calcium Gluconate 1 gm Magnesium Sulfate gm 1 gm In Amino Acids 5 %/Dextrose 20 % 1 ,000 ml @ 32 mls/hr IV . Q24H [facility] Rx#:[id number] Norepinephrine 4 mg In 22.386 183.940 Sodium Chloride 0.9% 250 ml @ 0.03 MCG/KG/MIN 9. 851 mls/hr IV .Q24H [facility] Rx#:[id number] Piperacillin-Tazobactam 3 100 .375 gm In Sodium Chloride 0.9% 100 ml @ 25 mls/hr IVPB Q8HR [facility] Rx# :[id number] propofoL 1,000 mg In 79.289 279.518 75.236 Empty Bag 1 bag @ 15 MCG/ KG/MIN 7.757 mls/hr IV . [id number] [facility] Rx#:[id number] Output: Drainage 660 120 380 Abdomen 500 Right 160 120 380 Urine 1170 630 810 Other: Voiding Method Indwelling Catheter Indwelling Catheter Indwelling Catheter ABP, PAP, CO, CI - Last Documented Arterial Blood Pressure 120/67 - Exam PHYSICAL EXAM: VITAL SIGNS: [As above] GENERAL: Sedated and intubated on mechanical ventilation HEENT: Normocephalic, atraumatic ,conjunctivae normal. NECK: Supple, no JVD. CARDIOVASCULAR: S1, S2 regular. Irregular, no murmur. RESPIRATION: Unlabored, equal air entry breath sounds diminished in the bases. ABDOMEN: Soft, nondistended, status post surgery, wound VAC, SANDY drain with serosanguineous drainage. LEGS: Bilateral lower extremities' Abhijeet wrap dressings clean dry and intact, NERVOUS SYSTEM: Unable to evaluate at this time, sedated and intubated Skin: Warm and dry, no rash Microbiology 11/05/23 16:40 Blood Blood Culture - Preliminary 11/05/23 20:30 Sputum Gram Stain - Final 11/05/23 20:30 Sputum Sputum Culture - Final Stenotrophomonas maltophilia Doreen albicans 11/03/23 15:15 Other - Other Anaerobic Culture - Final 11/03/23 15:10 Other - Other Anaerobic Culture - Final Doreen albicans 11/03/23 15:15 Other - Other Gram Stain - Final 11/03/23 15:15 Other - Other Wound Culture - Final Pseudomonas aeruginosa Morganella morganii Enterococcus faecalis 11/03/23 15:10 Other - Other Gram Stain - Final 11/03/23 15:10 Other - Other Wound Culture - Final Pseudomonas aeruginosa Methicillin resist S. aureus 10/29/23 17:45 Blood Blood Culture - Final 10/29/23 18:00 Blood Blood Culture - Final 10/29/23 20:33 Leg - Left Anaerobic Culture - Final 10/29/23 20:33 Leg - Left Gram Stain - Final 10/29/23 20:33 Leg - Left Wound Culture - Final Pseudomonas aeruginosa Enterococcus faecalis Methicillin resist S. aureus - Labs CBC & Chem 7: 11/09/23 05:00 11/09/23 05:00 Labs: Abnormal Lab Results - Last 24 Hours (Table) 11/08/23 11/08/23 11/09/23 Range/Units 18:05 23:58 00:02 WBC (3.8-10.6) k/uL RBC (4.30-5.90) m/uL Hgb (13.0-17.5) gm/dL Hct (39.0-53.0) % MCHC (31.0-37.0) g/dL RDW (11.5-15.5) % Neutrophils # (1.3-7.7) k/uL Lymphocytes # (1.0-4.8) k/uL ABG pO2 (83-108) mmHg ABG Total CO2 (19-24) mmol/L ABG O2 Saturation (94-97) % Carbon Dioxide (22-30) mmol/L BUN (9-20) mg/dL Creatinine (0.66-1.25) mg/dL Glucose (74-99) mg/dL POC Glucose (mg/dL) 117 H 54 L 126 H (70-110) mg/dL Calcium (8.4-10.2) mg/dL Ionized Calcium Negra (4.5-5.3) mg/dL Phosphorus (2.5-4.5) mg/dL Alkaline Phosphatase (38-126) U/L Total Protein (6.3-8.2) g/dL Albumin (3.5-5.0) g/dL 11/09/23 11/09/23 11/09/23 Range/Units 05:00 05:00 05:00 WBC 15.4 H (3.8-10.6) k/uL RBC 2.79 L (4.30-5.90) m/uL Hgb 7.2 L (13.0-17.5) gm/dL Hct 23.6 L (39.0-53.0) % MCHC 30.3 L (31.0-37.0) g/dL RDW 23.7 H (11.5-15.5) % Neutrophils # 14.0 H (1.3-7.7) k/uL Lymphocytes # 0.6 L (1.0-4.8) k/uL ABG pO2 (83-108) mmHg ABG Total CO2 (19-24) mmol/L ABG O2 Saturation (94-97) % Carbon Dioxide 21 L (22-30) mmol/L BUN 54 H (9-20) mg/dL Creatinine 3.27 H (0.66-1.25) mg/dL Glucose 116 H (74-99) mg/dL POC Glucose (mg/dL) (70-110) mg/dL Calcium 6.8 L (8.4-10.2) mg/dL Ionized Calcium Negra 4.0 L (4.5-5.3) mg/dL Phosphorus 6.0 H (2.5-4.5) mg/dL Alkaline Phosphatase 149 H (38-126) U/L Total Protein 4.7 L (6.3-8.2) g/dL Albumin 1.9 L (3.5-5.0) g/dL 11/09/23 11/09/23 Range/Units 05:01 06:17 WBC (3.8-10.6) k/uL RBC (4.30-5.90) m/uL Hgb (13.0-17.5) gm/dL Hct (39.0-53.0) % MCHC (31.0-37.0) g/dL RDW (11.5-15.5) % Neutrophils # (1.3-7.7) k/uL Lymphocytes # (1.0-4.8) k/uL ABG pO2 139 H (83-108) mmHg ABG Total CO2 25 H (19-24) mmol/L ABG O2 Saturation 99.6 H (94-97) % Carbon Dioxide (22-30) mmol/L BUN (9-20) mg/dL Creatinine (0.66-1.25) mg/dL Glucose (74-99) mg/dL POC Glucose (mg/dL) 135 H (70-110) mg/dL Calcium (8.4-10.2) mg/dL Ionized Calcium Negra (4.5-5.3) mg/dL Phosphorus (2.5-4.5) mg/dL Alkaline Phosphatase (38-126) U/L Total Protein (6.3-8.2) g/dL Albumin (3.5-5.0) g/dL Microbiology - Last 24 Hours (Table) 11/05/23 16:40 Blood Culture - Preliminary Blood 11/05/23 20:30 Gram Stain - Final Sputum Sputum Culture - Final Stenotrophomonas maltophilia Doreen albicans Assessment and Plan Assessment: Sepsis secondary to infected bilateral lower extremity wounds, cellulitis, recent excisional debridement of left lower leg wound with skin substitute placement, excisional debridement of the left great toe wound and excisional debridement of the right lower leg wound x 2 on 10/03/[address] Inman , vascular surgery. Cultures currently growing Pseudomonas aeruginosa and Enterococcus faecalis and MRSA. Status post debridement with deep cultures 830 reporting Pseudomonas Morganelli, Enterococcus faecalis and MRSA Perforated peptic ulcer and pneumoperitoneum status post exploratory laparotomy with gastric ulcer repair, modified Jasvir patch on 11/05/2023 Acute hypoxic respiratory failure, mechanical ventilator dependent Possible hospital-acquired, ventilator acquired pneumonia ;sputum culture reporting stenotrophomonas maltophilia, Doreen albicans Septic shock, requiring vasopressors Acute kidney injury, ATN secondary to sepsis, hypotension Metabolic acidosis secondary to the above, currently on bicarb drip History of Pseudomonas and VRE on last wound culture of left leg 10/03/2023, Lactic acidosis secondary to the above History of Left lower extremity skin dehiscence and wound infection,MSSA, status post excisional debridement and wound VAC. Left great toe ischemia status post excisional debridement History of left femoral tibial bypass secondary to critical limb ischemia History of aortic aneurysm with endovascular repair; Chronic Paroximal atrial fibrillation CAD, history of stent placement Essential hypertension Hyperlipidemia Nicotine dependence Daily alcohol use Noncompliance with medication regimen, patient is high risk for readmission. Iron deficient anemia Hypokalemia Hypomagnesemia Hyponatremia Plan: Continue current medication regimen, monitoring and symptomatic treatment. TPN initiated. Weaning trials today. Antibiotics as per infectious disease. 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 The impression and plan of care has been dictated as directed. : I performed a history and examination of this patient, discussed the same with the dictator. I agree with the dictator's note ,documented as a scribe. Any additional findings or plans will be noted.
[2023-11-09 17:35] LABS: Glucose,Whole Blood 90 mg/dL (70-110)
[2023-11-09 23:42] LABS: Glucose,Whole Blood 86 mg/dL (70-110)
[2023-11-10 03:44] LABS: Anisocytosis Moderate; Basophils % (A) 0 %; Eosinophils # (A) 0.2 k/uL (0-0.7); Eosinophils % (A) 1 %; HGB 7.9 gm/dL (13.0-17.5); Hypochromasia Marked; Lymphocytes # (A) 0.6 k/uL (1.0-4.8); Lymphocytes % (A) 3 %; MCH 25.9 pg (25.0-35.0); MCHC 30.6 g/dL (31.0-37.0); MCV 84.7 fL (80.0-100.0); Mean Platelet Volume 9.9; Microcytosis Slight; Monocytes # (A) 0.6 k/uL (0-1.0); Monocytes % (A) 3 %; Neutrophils # (A) 16.5 k/uL (1.3-7.7); Neutrophils % (A) 92 %; Platelet Count 293 k/uL (150-450); RBC 3.07 m/uL (4.30-5.90); RDW 23.7 % (11.5-15.5)
[2023-11-10 04:15] LABS: ALT 16 U/L (4-49); AST 89 U/L (17-59); African American GFR (CKD) 22 (>60 ml/min/1.73 sqM); Albumin 1.9 g/dL (3.5-5.0); Alkaline Phosphatase 149 U/L (38-126); Anion Gap 10 mmol/L; Blood Urea Nitrogen 54 mg/dL (9-20); Calcium 7.1 mg/dL (8.4-10.2); Carbon Dioxide 21 mmol/L (22-30); Chloride 105 mmol/L (98-107); Glucose 111 mg/dL (74-99); Non-African American GFR(CKD) 19 (>60 ml/min/1.73 sqM); Potassium 4.2 mmol/L (3.5-5.1); Sodium 136 mmol/L (137-145); Total Bilirubin 1.2 mg/dL (0.2-1.3); Total Protein 4.9 g/dL (6.3-8.2)
[2023-11-10 04:25] LABS: Phosphorus 6.2 mg/dL (2.5-4.5)
[2023-11-10 05:43] LABS: ABG Base Excess -1.6 mmol/L; ABG HCO3 23 mmol/L (21-25); ABG Oxygen Saturation 99.6 % (94-97); ABG PCO2 36 mmHg (35-45); ABG PH 7.41 (7.35-7.45); ABG PO2 134 mmHg (83-108); ABG TCO2 24 mmol/L (19-24); Allen Test Performed? Yes
[2023-11-10 06:02] LABS: Glucose,Whole Blood 80 mg/dL (70-110)
--- NOTE | 2023-11-10 08:57 | P.PN ---
Subjective Progress Note Date: 11/09/23 Principal diagnosis: Reason for follow-up is bilateral lower extremity infected wounds and perforated peptic ulcer Patient is a 63-year-old male with a past medical history significant for hypertension hyperlipidemia coronary artery disease, PAD multiple vascular procedures including left femoral-tibial bypass and now has been dealing with the wound to the left lower extremity as well as wound to the right leg being managed in the outpatient setting by vascular surgery Center the hospital by the home care nurse concerning for worsening infection. Patient last wound culture positive for VRE and Pseudomonas. Patient is status post Sharp excisional debridement bilateral lower extremities along with cultures of the purulent material completed on 11/03/2023.Patient was taken to the OR 11/05/2023 found to have perforated gastric ulcer status post exploratory laparotomy repair of the perforated ulcer with modified Jasvir patch. On today's evaluation that is 11/09/2023, Patient is afebrile this morning patient remains to be intubated on the vent FiO2 is at 35% no significant purulent secretions through the ET patient is requiring pressor support to maintain his blood pressure and no other changes reported by the nursing staff. Patient white count slightly up to 15.4 today creatinine 3.27 sputum is growing stenotrophomonas Objective - Vital Signs Vital signs: Vital Signs Temp 98.1 F 11/09/23 12:00 Pulse 93 11/09/23 15:48 Resp 13 11/09/23 14:00 BP 103/63 11/06/23 03:00 Pulse Ox 98 11/09/23 14:00 FiO2 35 11/09/23 15:14 Intake & Output 11/08/23 11/09/23 11/09/23 18:59 06:59 18:59 Intake Total 919.675 789.458 839.236 Output Total 0311 320 8762 Balance -910.325 39.458 -350.764 Weight 96.4 kg 95.6 kg Intake: IV 628 326 260 Calcium Gluconate in NaCl 100 1 gm In Saline 1 100ml. bag @ 100 mls/hr IVPB ONCE ONE Rx#:[id number] DAPTOmycin 500 mg In 100 Sodium Chloride 0.9% 50 ml @ 100 mls/hr IVPB Q24HR [facility] Rx#:[id number] Dextrose 5% in Water 1, 150 000 ml @ 125 mls/hr IV . Q9H12M [facility] with Sodium Bicarb (1 Meq/ml) 150 ml Rx#:[id number] Dextrose 5% in Water 1, 150 000 ml @ 75 mls/hr IV . [id number] [facility] with Sodium Bicarb (1 Meq/ml) 150 ml Rx#:[id number] KVO 80 110 100 Levofloxacin 250Mg-D5w 50 Pmx 250 mg In Dextrose/ Water 1 50ml.bag @ 50 mls /hr IVPB Q24H [facility] Rx#: [id number] Piperacillin-Tazobactam 3 100 100 .375 gm In Sodium Chloride 0.9% 100 ml @ 25 mls/hr IVPB Q8HR [facility] Rx# :[id number] Pressure lines 48 66 60 Intake, IV Titration 291.675 463.458 579.236 Amount Anidulafungin 100 mg In 130 Sodium Chloride 0.9% 100 ml @ 84 mls/hr IVPB DAILY [facility] Rx#:[id number] Magnesium Sulfate-D5w Pmx 100 1 gm In Dextrose/Water 1 100ml.bag @ 100 mls/hr IVPB ONCE ONE Rx#: [id number] [facility], Adult No.4 with Vit 274 K 10 ml Trace (Conc-1Ml/ Dose) 1 ml Sodium Acetate 30 meq Potassium Chloride 40 meq Calcium Gluconate 1 gm Magnesium Sulfate gm 1 gm In Amino Acids 5 %/Dextrose 20 % 1 ,000 ml @ 30 mls/hr IV . Q24H [facility] Rx#:[id number] [facility], Adult No.4 with Vit 90 K 10 ml Trace (Conc-1Ml/ Dose) 1 ml Sodium Acetate 30 meq Potassium Chloride 40 meq Calcium Gluconate 1 gm Magnesium Sulfate gm 1 gm In Amino Acids 5 %/Dextrose 20 % 1 ,000 ml @ 32 mls/hr IV . Q24H [facility] Rx#:[id number] Norepinephrine 4 mg In 22.386 183.940 Sodium Chloride 0.9% 250 ml @ 0.03 MCG/KG/MIN 9. 851 mls/hr IV .Q24H [facility] Rx#:[id number] Piperacillin-Tazobactam 3 100 .375 gm In Sodium Chloride 0.9% 100 ml @ 25 mls/hr IVPB Q8HR [facility] Rx# :[id number] propofoL 1,000 mg In 79.289 279.518 75.236 Empty Bag 1 bag @ 15 MCG/ KG/MIN 7.757 mls/hr IV . [id number] [facility] Rx#:[id number] Output: Drainage 660 120 380 Abdomen 500 Right 160 120 380 Urine 1170 630 810 Other: Voiding Method Indwelling Catheter Indwelling Catheter Indwelling Catheter ABP, PAP, CO, CI - Last Documented Arterial Blood Pressure 111/57 - Exam GENERAL DESCRIPTION: Middle-age male intubated on the vent RESPIRATORY SYSTEM: Unlabored breathing , decreased breath sounds at bases HEART: S1 S2 regular rate and rhythm , ABDOMEN: Soft , mild distention EXTREMITIES: Bilateral extremity wounds currently dressed no drainage - Labs CBC & Chem 7: 11/10/23 03:25 11/10/23 03:25 Labs: Abnormal Lab Results - Last 24 Hours (Table) 11/08/23 11/08/23 11/09/23 Range/Units 18:05 23:58 00:02 WBC (3.8-10.6) k/uL RBC (4.30-5.90) m/uL Hgb (13.0-17.5) gm/dL Hct (39.0-53.0) % MCHC (31.0-37.0) g/dL RDW (11.5-15.5) % Neutrophils # (1.3-7.7) k/uL Lymphocytes # (1.0-4.8) k/uL ABG pO2 (83-108) mmHg ABG Total CO2 (19-24) mmol/L ABG O2 Saturation (94-97) % Carbon Dioxide (22-30) mmol/L BUN (9-20) mg/dL Creatinine (0.66-1.25) mg/dL Glucose (74-99) mg/dL POC Glucose (mg/dL) 117 H 54 L 126 H (70-110) mg/dL Calcium (8.4-10.2) mg/dL Ionized Calcium Negra (4.5-5.3) mg/dL Phosphorus (2.5-4.5) mg/dL Alkaline Phosphatase (38-126) U/L Total Protein (6.3-8.2) g/dL Albumin (3.5-5.0) g/dL 11/09/23 11/09/23 11/09/23 Range/Units 05:00 05:00 05:00 WBC 15.4 H (3.8-10.6) k/uL RBC 2.79 L (4.30-5.90) m/uL Hgb 7.2 L (13.0-17.5) gm/dL Hct 23.6 L (39.0-53.0) % MCHC 30.3 L (31.0-37.0) g/dL RDW 23.7 H (11.5-15.5) % Neutrophils # 14.0 H (1.3-7.7) k/uL Lymphocytes # 0.6 L (1.0-4.8) k/uL ABG pO2 (83-108) mmHg ABG Total CO2 (19-24) mmol/L ABG O2 Saturation (94-97) % Carbon Dioxide 21 L (22-30) mmol/L BUN 54 H (9-20) mg/dL Creatinine 3.27 H (0.66-1.25) mg/dL Glucose 116 H (74-99) mg/dL POC Glucose (mg/dL) (70-110) mg/dL Calcium 6.8 L (8.4-10.2) mg/dL Ionized Calcium Negra 4.0 L (4.5-5.3) mg/dL Phosphorus 6.0 H (2.5-4.5) mg/dL Alkaline Phosphatase 149 H (38-126) U/L Total Protein 4.7 L (6.3-8.2) g/dL Albumin 1.9 L (3.5-5.0) g/dL 11/09/23 11/09/23 Range/Units 05:01 06:17 WBC (3.8-10.6) k/uL RBC (4.30-5.90) m/uL Hgb (13.0-17.5) gm/dL Hct (39.0-53.0) % MCHC (31.0-37.0) g/dL RDW (11.5-15.5) % Neutrophils # (1.3-7.7) k/uL Lymphocytes # (1.0-4.8) k/uL ABG pO2 139 H (83-108) mmHg ABG Total CO2 25 H (19-24) mmol/L ABG O2 Saturation 99.6 H (94-97) % Carbon Dioxide (22-30) mmol/L BUN (9-20) mg/dL Creatinine (0.66-1.25) mg/dL Glucose (74-99) mg/dL POC Glucose (mg/dL) 135 H (70-110) mg/dL Calcium (8.4-10.2) mg/dL Ionized Calcium Negra (4.5-5.3) mg/dL Phosphorus (2.5-4.5) mg/dL Alkaline Phosphatase (38-126) U/L Total Protein (6.3-8.2) g/dL Albumin (3.5-5.0) g/dL Microbiology - Last 24 Hours (Table) 11/05/23 16:40 Blood Culture - Preliminary Blood 11/05/23 20:30 Gram Stain - Final Sputum Sputum Culture - Final Stenotrophomonas maltophilia Doreen albicans Assessment and Plan (1) Bilateral lower leg cellulitis Current Visit: Yes Status: Acute Code(s): L03.116 - CELLULITIS OF LEFT LOWER LIMB; L03.115 - CELLULITIS OF RIGHT LOWER LIMB SNOMED Code(s): 488378314 (2) Open wound of both lower extremities Current Visit: Yes Status: Acute Code(s): S81.801A - UNSPECIFIED OPEN WOUND, RIGHT LOWER LEG, INITIAL ENCOUNTER; S81.802A - UNSPECIFIED OPEN WOUND, LEFT LOWER LEG, INITIAL ENCOUNTER SNOMED Code(s): 21030272 (3) Sepsis Current Visit: Yes Status: Acute Code(s): A41.9 - SEPSIS, UNSPECIFIED ORGANISM SNOMED Code(s): 49361268 (4) Pneumonia Current Visit: Yes Status: Acute Code(s): J18.9 - PNEUMONIA, UNSPECIFIED ORGANISM SNOMED Code(s): 571774106 Plan: 1patient presented to hospital with sepsis in this patient who did have a fever tachycardia elevated white count source is likely bilateral lower extremity wound and cellulitis with more extensive wound to the left lower extremity in this patient who did have a history of PAD and has multiple vascular procedure last wound culture done from the right leg has been Pseudomonas and VRE that was done on 10/03/2023, culture done this admission are growing Pseudomonas aeruginosa Enterococcus faecalis that is not VRE and MRSA 2patient is status post debridement and deep culture completed on 11/03/2023 which did grow multiple pathogen including Pseudomonas Morganella Enterococcus faecalis and MRSA 3patient did have a perforated peptic ulcer status post laparotomy and modified Jasvir patch 4-patient sputum is growing stenotrophomonas concerning for gram-negative pneumonia 5-is broadly covered with the daptomycin, Zosyn Levaquin and Eraxis and monitor clinical course closely, prognosis remains to be guarded Dictation was produced using [employer] dictation software. please excuse any grammatical, word or spelling errors. Time with Patient: Less than 30
[2023-11-10] MEDS ORDERED: MD COMMUNICATION TO PHARMACY 1 EACH MISC PO PRN (11:50)
[2023-11-10 11:51] LABS: Glucose,Whole Blood 94 mg/dL (70-110)
--- NOTE | 2023-11-10 12:25 | XR ---
EXAMINATION TYPE: XR chest 1V portable DATE OF EXAM: 11/10/2023 Comparison: 11/09/2023 Clinical History: 63-year-old male mechanical ventilation Findings: Tip 2.4 cm from the prince. Right IJ CVC tip at the lower SVC. NG tube sidehole at the GE junction. C onsider further advancement by 5 cm so that it enters. Heart normal size. Ongoing patchy and hazy bib asilar opacities with slight interval improvement. Impression: 1. Consider advancing the NG tube by 5 cm so that the side hole enters the stomach. 2. Ongoing bilateral lower lung patchy and hazy opacities. Slight improvement now on the right.
--- NOTE | 2023-11-10 12:58 | P.PN ---
Subjective Progress Note Date: 11/10/23 CHIEF COMPLAINT: Perforated gastric ulcer HISTORY OF PRESENT ILLNESS: patient is postop day #5 status post repair of perforated gastric ulcer. Patient remains in the ICU on mechanical ventilation. patient failed weaning trial yesterday. Remains on a small dose of Levophed. Scheduled for wound VAC change today. Continues to have ascites fluid SANDY drain and wound VAC.afebrile. WBC 15.4 up to 18 Hgb 7.9 creatinine 3.21 PHYSICAL EXAM: VITAL SIGNS: Reviewed. GENERAL: Intubated. ABDOMEN: Soft. nondistended. wound VAC intact with serosanguineous ascites fluid. SANDY drain serosanguineous ascites fluid ASSESSMENT: 1. Perforated gastric ulcer 2. Sepsis and septic shock 3. History of alcoholism 4. Severe protein calorie malnutrition PLAN: -wound VAC changes starting today and then continue wound VAC changes Monday -Continue TPN for nutrition support -continue ICU management -Continue supportive care -Antibiotics per ID service -Continue IV Protonix Physician Lead Accountant note has been reviewed by physician. Signing provider agrees with the documented findings, assessment, and plan of care. Objective - Vital Signs Vital signs: Vital Signs Temp 97.4 F L 11/10/23 12:00 Pulse 100 11/10/23 12:16 Resp 20 11/10/23 12:00 BP 103/63 11/06/23 03:00 Pulse Ox 100 11/10/23 12:00 FiO2 35 11/10/23 12:00 Intake & Output 11/09/23 11/10/23 11/10/23 18:59 06:59 18:59 Intake Total 960.000 470.792 533 Output Total 2065 1095 640 Balance -1105.000 -624.208 -107 Weight 93.7 kg Intake: IV 292 312 173 KVO 120 120 70 Levofloxacin 250Mg-D5w 50 Pmx 250 mg In Dextrose/ Water 1 50ml.bag @ 50 mls /hr IVPB Q24H [facility] Rx#: [id number] Piperacillin-Tazobactam 3 100 100 100 .375 gm In Sodium Chloride 0.9% 100 ml @ 25 mls/hr IVPB Q8HR [facility] Rx# :[id number] Pressure lines 72 42 3 Intake, IV Titration 668.000 158.792 360 Amount Anidulafungin 100 mg In 130 260 Sodium Chloride 0.9% 100 ml @ 84 mls/hr IVPB DAILY [facility] Rx#:[id number] Magnesium Sulfate-D5w Pmx 100 1 gm In Dextrose/Water 1 100ml.bag @ 100 mls/hr IVPB ONCE ONE Rx#: [id number] Mvi, Adult No.4 with Vit 338 32 K 10 ml Trace (Conc-1Ml/ Dose) 1 ml Sodium Acetate 30 meq Potassium Chloride 40 meq Calcium Gluconate 1 gm Magnesium Sulfate gm 1 gm In Amino Acids 5 %/Dextrose 20 % 1 ,000 ml @ 30 mls/hr IV . Q24H [facility] Rx#:[id number] Norepinephrine 4 mg In 44.446 Sodium Chloride 0.9% 250 ml @ 0.03 MCG/KG/MIN 9. 851 mls/hr IV .Q24H [facility] Rx#:[id number] propofoL 1,000 mg In 100.000 82.346 100 Empty Bag 1 bag @ 15 MCG/ KG/MIN 7.757 mls/hr IV . [id number] [facility] Rx#:[id number] Output: Drainage 1080 550 480 Abdomen 500 Right 580 550 480 Urine 985 545 160 Other: Voiding Method Indwelling Catheter Indwelling Catheter Indwelling Catheter ABP, PAP, CO, CI - Last Documented Arterial Blood Pressure 119/61 - Labs CBC & Chem 7: 11/10/23 03:25 11/10/23 03:25 Labs: Abnormal Lab Results - Last 24 Hours (Table) 11/10/23 11/10/23 11/10/23 Range/Units 03:25 03:25 03:25 WBC 18.0 H (3.8-10.6) k/uL RBC 3.07 L (4.30-5.90) m/uL Hgb 7.9 L (13.0-17.5) gm/dL Hct 26.0 L (39.0-53.0) % MCHC 30.6 L (31.0-37.0) g/dL RDW 23.7 H (11.5-15.5) % Neutrophils # 16.5 H (1.3-7.7) k/uL Lymphocytes # 0.6 L (1.0-4.8) k/uL ABG pO2 (83-108) mmHg ABG O2 Saturation (94-97) % Sodium 136 L (137-145) mmol/L Carbon Dioxide 21 L (22-30) mmol/L BUN 54 H (9-20) mg/dL Creatinine 3.21 H (0.66-1.25) mg/dL Glucose 111 H (74-99) mg/dL Calcium 7.1 L (8.4-10.2) mg/dL Phosphorus 6.2 H (2.5-4.5) mg/dL AST 89 H (17-59) U/L Alkaline Phosphatase 149 H (38-126) U/L Total Protein 4.9 L (6.3-8.2) g/dL Albumin 1.9 L (3.5-5.0) g/dL 11/10/23 Range/Units 05:23 WBC (3.8-10.6) k/uL RBC (4.30-5.90) m/uL Hgb (13.0-17.5) gm/dL Hct (39.0-53.0) % MCHC (31.0-37.0) g/dL RDW (11.5-15.5) % Neutrophils # (1.3-7.7) k/uL Lymphocytes # (1.0-4.8) k/uL ABG pO2 134 H (83-108) mmHg ABG O2 Saturation 99.6 H (94-97) % Sodium (137-145) mmol/L Carbon Dioxide (22-30) mmol/L BUN (9-20) mg/dL Creatinine (0.66-1.25) mg/dL Glucose (74-99) mg/dL Calcium (8.4-10.2) mg/dL Phosphorus (2.5-4.5) mg/dL AST (17-59) U/L Alkaline Phosphatase (38-126) U/L Total Protein (6.3-8.2) g/dL Albumin (3.5-5.0) g/dL
--- NOTE | 2023-11-10 13:19 | P.PN ---
Subjective patient is seen for follow-up for acute kidney injury. Patient remains on the vent. FiO2 is at 35%. maintained on TPN, currently at 32 mL an hour Urine output has improved to about 20-40mL an hour. Serum creatinine at 3.2 today. Objective - Vital Signs Vital signs: Vital Signs Temp 97.4 F L 11/10/23 12:00 Pulse 100 11/10/23 12:16 Resp 20 11/10/23 12:00 BP 103/63 11/06/23 03:00 Pulse Ox 100 11/10/23 12:00 FiO2 35 11/10/23 12:00 Intake & Output 11/09/23 11/10/23 11/10/23 18:59 06:59 18:59 Intake Total 960.000 470.792 533 Output Total 2065 1095 640 Balance -1105.000 -624.208 -107 Weight 93.7 kg Intake: IV 292 312 173 KVO 120 120 70 Levofloxacin 250Mg-D5w 50 Pmx 250 mg In Dextrose/ Water 1 50ml.bag @ 50 mls /hr IVPB Q24H [facility] Rx#: [id number] Piperacillin-Tazobactam 3 100 100 100 .375 gm In Sodium Chloride 0.9% 100 ml @ 25 mls/hr IVPB Q8HR [facility] Rx# :[id number] Pressure lines 72 42 3 Intake, IV Titration 668.000 158.792 360 Amount Anidulafungin 100 mg In 130 260 Sodium Chloride 0.9% 100 ml @ 84 mls/hr IVPB DAILY [facility] Rx#:[id number] Magnesium Sulfate-D5w Pmx 100 1 gm In Dextrose/Water 1 100ml.bag @ 100 mls/hr IVPB ONCE ONE Rx#: [id number] Mvi, Adult No.4 with Vit 338 32 K 10 ml Trace (Conc-1Ml/ Dose) 1 ml Sodium Acetate 30 meq Potassium Chloride 40 meq Calcium Gluconate 1 gm Magnesium Sulfate gm 1 gm In Amino Acids 5 %/Dextrose 20 % 1 ,000 ml @ 30 mls/hr IV . Q24H [facility] Rx#:[id number] Norepinephrine 4 mg In 44.446 Sodium Chloride 0.9% 250 ml @ 0.03 MCG/KG/MIN 9. 851 mls/hr IV .Q24H [facility] Rx#:[id number] propofoL 1,000 mg In 100.000 82.346 100 Empty Bag 1 bag @ 15 MCG/ KG/MIN 7.757 mls/hr IV . [id number] [facility] Rx#:[id number] Output: Drainage 1080 550 480 Abdomen 500 Right 580 550 480 Urine 985 545 160 Other: Voiding Method Indwelling Catheter Indwelling Catheter Indwelling Catheter ABP, PAP, CO, CI - Last Documented Arterial Blood Pressure 119/61 - Exam Currently on the vent. FiO2 35%. Examination of the heart S1 and S2 Examination of the lungs bilateral breath sounds are heard Abdomen is dressed Bilateral lower extremities are wrapped. significant edema noted bilaterally 2+ along with significant scrotal edema. - Labs CBC & Chem 7: 11/10/23 03:25 11/10/23 03:25 Labs: Abnormal Lab Results - Last 24 Hours (Table) 11/10/23 11/10/23 11/10/23 Range/Units 03:25 03:25 03:25 WBC 18.0 H (3.8-10.6) k/uL RBC 3.07 L (4.30-5.90) m/uL Hgb 7.9 L (13.0-17.5) gm/dL Hct 26.0 L (39.0-53.0) % MCHC 30.6 L (31.0-37.0) g/dL RDW 23.7 H (11.5-15.5) % Neutrophils # 16.5 H (1.3-7.7) k/uL Lymphocytes # 0.6 L (1.0-4.8) k/uL ABG pO2 (83-108) mmHg ABG O2 Saturation (94-97) % Sodium 136 L (137-145) mmol/L Carbon Dioxide 21 L (22-30) mmol/L BUN 54 H (9-20) mg/dL Creatinine 3.21 H (0.66-1.25) mg/dL Glucose 111 H (74-99) mg/dL Calcium 7.1 L (8.4-10.2) mg/dL Phosphorus 6.2 H (2.5-4.5) mg/dL AST 89 H (17-59) U/L Alkaline Phosphatase 149 H (38-126) U/L Total Protein 4.9 L (6.3-8.2) g/dL Albumin 1.9 L (3.5-5.0) g/dL 11/10/23 Range/Units 05:23 WBC (3.8-10.6) k/uL RBC (4.30-5.90) m/uL Hgb (13.0-17.5) gm/dL Hct (39.0-53.0) % MCHC (31.0-37.0) g/dL RDW (11.5-15.5) % Neutrophils # (1.3-7.7) k/uL Lymphocytes # (1.0-4.8) k/uL ABG pO2 134 H (83-108) mmHg ABG O2 Saturation 99.6 H (94-97) % Sodium (137-145) mmol/L Carbon Dioxide (22-30) mmol/L BUN (9-20) mg/dL Creatinine (0.66-1.25) mg/dL Glucose (74-99) mg/dL Calcium (8.4-10.2) mg/dL Phosphorus (2.5-4.5) mg/dL AST (17-59) U/L Alkaline Phosphatase (38-126) U/L Total Protein (6.3-8.2) g/dL Albumin (3.5-5.0) g/dL Assessment and Plan Assessment: 1. Acute kidney injury, ATN, oliguric initially, currently nonoliguric secondar y to hypotension and sepsis. Vancomycin noted upon initial admission however currently patient is maintained on daptomycin. He has received multiple fluid boluses. UA shows trace protein and small blood. No evidence of obstruction on CT of the abdomen. 2. Nongap metabolic acidosis secondary to acute kidney injury 3. Sepsis with septic shock from perforated viscus and bilateral lower extremit y wounds. 4. Bilateral lower extremity wounds with wound cultures growing MRSA, Pseudomonas and Enterococcus faecalis. Patient is being followed by ID. 5. Acute hypoxic respiratory failure maintained on the vent 6. Volume overload and significant third spacing 7. Hyperphosphatemia associated with acute kidney injury, add phosphate binders once oral intake is started Plan: May repeat IV Lasix if the urine output drops again. Continue to avoid nephrotoxic agents.
--- NOTE | 2023-11-10 14:03 | P.PN ---
Subjective Progress Note Date: 11/10/23 H&P Date: 10/30/23 Chief Complaint: Worsening bilateral lower legs, increased pain, edema and "split open" This is 63-year-old gentleman with past medical history significant for PAD, multiple vascular procedures including femoral-tibial bypass followed by wound development, dehiscence of his left lower extremity, status post recent excisional debridement of the left lower leg wound with skin substitute placement, excisional debridement of the left great toe wound and excisional debridement of right lower leg wound x 2 on 10/03/[address] Inman, vascular surgery, presented to the ER with worsening bilateral lower extremity pain, edema, reports right lower extremity "split open" over the last week with serous drainage. His visiting nurse evaluated patient on Monday recommending ER. Denies any chest pain, palpitations or shortness of breath. Denies nausea vomiting or diarrhea. Denies abdominal pain. Denies fever or chills. Denies lightheadedness, dizziness or focal deficits. Wound and blood cultures obtained, initiated on vancomycin in the ER. Tmax 101, WBC 16.3, increased to 19.67, CRP 12.6 .hemoglobin 7.7, platelets 468. Sodium 129, potassium 3.3, bicarb 19, BUN 10, creatinine 0.7. Lactic acid 2.2, improved with IV fluid hy dration, 1.1. Magnesium 1-repeat level ordered stat. 10/31/2023 Tmax 101. WBC decreased to 15.1. reports decreased appetite. Sodium decreased to 127, renal function stable. Potassium 3.9, magnesium 1.2 - supplements ordered. Positive pain of bilateral lower extremities. Evaluated by infectious disease, antibiotics adjusted to Zyvox and meropenem. Denies chest pain, palpitations or shortness of breath. 11/01/2023 wound cultures growing Pseudomonas and Enterococcus faecalis, vancomycin and penicillin sensitive, afebrile, WBC up to 20.06, antibiotics further adjusted to Zosyn and daptomycin. Renal function stable. IV fluids adjusted yesterday to D5.9 with sodium improved up to 130. 11/02/2023 maintained on IV antibiotics as per ID. Afebrile, WBC decreased to 17.3. Hemoglobin 9.1, platelets 523. Sodium 131 on IV fluids of D5.9. Potassium 3.8, magnesium 1.8, creatinine 0.9. Pain controlled , denies chest pain, palpitations or shortness of breath, maintaining O2 sats in the high 90s on room air. Scheduled for debridement and deep cultures tomorrow with vascular surgery. 11/07/2023 remains vent dependent with FiO2 35%/5 of PEEP. Maintained on diprovan, Levophed and bicarb drips. Bicarb 20, BUN 53, creatinine 2.84. continues on daptomycin, Eraxis, Zosyn. WBC 21, afebrile. Receiving potassium supplementation for potassium 3.3. Hemoglobin 7.1, platelets 477. 11/08/2023 Vent dependent, FiO2 35%/+5 of PEEP. Unsuccessful weaning trial yesterday, not following commands. Scheduled for another weaning trial today. Bicarb 23, bicarb drip discontinued. Levophed resumed after being off for few hours during the night. Echo reported EF 55 to 60%. Telemetry atrial f ibrillation with controlled ventricular rates, cardiology following. Staff reported earlier this morning right foot noted to be cooler, mottled, improved with rewrapping of Abhijeet wrap's -less tight. TPN ordered. 11/09/2023 weaning trials attempted yesterday, patient was not following commands , not opening eyes ,shaking his head [id number]. Vent dependent, FiO2 35%/+5 of PEEP. Repeat weaning trial scheduled for today. continues on Levophed. Telemetry atrial fibrillation with controlled ventricular rate. continues to have large output from SANDY drain. Afebrile, WBC increased to 15.4. Hemoglobin 7.2, platelet count 317. Bicarb 21, BUN 54, creatinine 3.27. Sputum culture reporting stenotrophomonas maltophilia, Doreen albicans. Maintained on Zosyn, Eraxis and vancomycin. 11/10/2023 Vent dependent FiO2 35%/+5 of PEEP. Maintained on Levophed. Telemetry atrial fibrillation, controlled ventricular rate. Failed weaning trial yesterday, reattempting today. Bicarb 21, BUN 54, creatinine 3.21. Afebrile, WBC increased to 18. Continues on daptomycin, Zosyn, Levaquin, Eraxis. Objective - Vital Signs Vital signs: Vital Signs Temp 97.4 F L 11/10/23 12:00 Pulse 100 11/10/23 12:16 Resp 20 11/10/23 12:00 BP 103/63 11/06/23 03:00 Pulse Ox 100 11/10/23 12:00 FiO2 35 11/10/23 13:16 Intake & Output 11/09/23 11/10/23 11/10/23 18:59 06:59 18:59 Intake Total 960.000 470.792 533 Output Total 2065 1095 640 Balance -1105.000 -624.208 -107 Weight 93.7 kg Intake: IV 292 312 173 KVO 120 120 70 Levofloxacin 250Mg-D5w 50 Pmx 250 mg In Dextrose/ Water 1 50ml.bag @ 50 mls /hr IVPB Q24H [facility] Rx#: [id number] Piperacillin-Tazobactam 3 100 100 100 .375 gm In Sodium Chloride 0.9% 100 ml @ 25 mls/hr IVPB Q8HR [facility] Rx# :[id number] Pressure lines 72 42 3 Intake, IV Titration 668.000 158.792 360 Amount Anidulafungin 100 mg In 130 260 Sodium Chloride 0.9% 100 ml @ 84 mls/hr IVPB DAILY [facility] Rx#:[id number] Magnesium Sulfate-D5w Pmx 100 1 gm In Dextrose/Water 1 100ml.bag @ 100 mls/hr IVPB ONCE ONE Rx#: [id number] Mvi, Adult No.4 with Vit 338 32 K 10 ml Trace (Conc-1Ml/ Dose) 1 ml Sodium Acetate 30 meq Potassium Chloride 40 meq Calcium Gluconate 1 gm Magnesium Sulfate gm 1 gm In Amino Acids 5 %/Dextrose 20 % 1 ,000 ml @ 30 mls/hr IV . Q24H [facility] Rx#:[id number] Norepinephrine 4 mg In 44.446 Sodium Chloride 0.9% 250 ml @ 0.03 MCG/KG/MIN 9. 851 mls/hr IV .Q24H [facility] Rx#:[id number] propofoL 1,000 mg In 100.000 82.346 100 Empty Bag 1 bag @ 15 MCG/ KG/MIN 7.757 mls/hr IV . [id number] [facility] Rx#:[id number] Output: Drainage 1080 550 480 Abdomen 500 Right 580 550 480 Urine 985 545 160 Other: Voiding Method Indwelling Catheter Indwelling Catheter Indwelling Catheter ABP, PAP, CO, CI - Last Documented Arterial Blood Pressure 119/61 - Exam PHYSICAL EXAM: VITAL SIGNS: [As above] GENERAL: Sedated and intubated on mechanical ventilation HEENT: Normocephalic, atraumatic ,conjunctivae normal. NECK: Supple, no JVD. CARDIOVASCULAR: S1, S2 regular. Irregular, no murmur. RESPIRATION: Unlabored, equal air entry breath sounds diminished in the bases. ABDOMEN: Soft, nondistended, status post surgery, wound VAC, SANDY drain with serosanguineous drainage. LEGS: Bilateral lower extremities' Abhijeet wrap dressings clean dry and intact, NERVOUS SYSTEM: Unable to evaluate at this time, sedated and intubated Skin: Warm and dry, no rash - Labs CBC & Chem 7: 11/10/23 03:25 11/10/23 03:25 Labs: Abnormal Lab Results - Last 24 Hours (Table) 11/10/23 11/10/23 11/10/23 Range/Units 03:25 03:25 03:25 WBC 18.0 H (3.8-10.6) k/uL RBC 3.07 L (4.30-5.90) m/uL Hgb 7.9 L (13.0-17.5) gm/dL Hct 26.0 L (39.0-53.0) % MCHC 30.6 L (31.0-37.0) g/dL RDW 23.7 H (11.5-15.5) % Neutrophils # 16.5 H (1.3-7.7) k/uL Lymphocytes # 0.6 L (1.0-4.8) k/uL ABG pO2 (83-108) mmHg ABG O2 Saturation (94-97) % Sodium 136 L (137-145) mmol/L Carbon Dioxide 21 L (22-30) mmol/L BUN 54 H (9-20) mg/dL Creatinine 3.21 H (0.66-1.25) mg/dL Glucose 111 H (74-99) mg/dL Calcium 7.1 L (8.4-10.2) mg/dL Phosphorus 6.2 H (2.5-4.5) mg/dL AST 89 H (17-59) U/L Alkaline Phosphatase 149 H (38-126) U/L Total Protein 4.9 L (6.3-8.2) g/dL Albumin 1.9 L (3.5-5.0) g/dL 11/10/23 Range/Units 05:23 WBC (3.8-10.6) k/uL RBC (4.30-5.90) m/uL Hgb (13.0-17.5) gm/dL Hct (39.0-53.0) % MCHC (31.0-37.0) g/dL RDW (11.5-15.5) % Neutrophils # (1.3-7.7) k/uL Lymphocytes # (1.0-4.8) k/uL ABG pO2 134 H (83-108) mmHg ABG O2 Saturation 99.6 H (94-97) % Sodium (137-145) mmol/L Carbon Dioxide (22-30) mmol/L BUN (9-20) mg/dL Creatinine (0.66-1.25) mg/dL Glucose (74-99) mg/dL Calcium (8.4-10.2) mg/dL Phosphorus (2.5-4.5) mg/dL AST (17-59) U/L Alkaline Phosphatase (38-126) U/L Total Protein (6.3-8.2) g/dL Albumin (3.5-5.0) g/dL Assessment and Plan Assessment: Sepsis secondary to infected bilateral lower extremity wounds, cellulitis, recent excisional debridement of left lower leg wound with skin substitute placement, excisional debridement of the left great toe wound and excisional debridement of the right lower leg wound x 2 on 10/03/[address] Inman , vascular surgery. Cultures currently growing Pseudomonas aeruginosa and Enterococcus faecalis and MRSA. Status post debridement with deep cultures 830 reporting Pseudomonas Morganelli, Enterococcus faecalis and MRSA Perforated peptic ulcer and pneumoperitoneum status post exploratory laparotomy with gastric ulcer repair, modified Jasvir patch on 11/05/2023 Acute hypoxic respiratory failure, mechanical ventilator dependent Possible hospital-acquired, ventilator acquired pneumonia ;sputum culture reporting stenotrophomonas maltophilia, Doreen albicans Septic shock, requiring vasopressors Acute kidney injury, ATN secondary to sepsis, hypotension Metabolic acidosis secondary to the above, currently on bicarb drip History of Pseudomonas and VRE on last wound culture of left leg 10/03/2023, Lactic acidosis secondary to the above History of Left lower extremity skin dehiscence and wound infection,MSSA, status post excisional debridement and wound VAC. Left great toe ischemia status post excisional debridement History of left femoral tibial bypass secondary to critical limb ischemia History of aortic aneurysm with endovascular repair; Chronic Paroximal atrial fibrillation CAD, history of stent placement Essential hypertension Hyperlipidemia Nicotine dependence Daily alcohol use Noncompliance with medication regimen, patient is high risk for readmission. Iron deficient anemia Hypokalemia Hypomagnesemia Hyponatremia Plan: Continue current medication regimen, monitoring and symptomatic treatment. Weaning trials today. Antibiotics as per infectious disease. ICU management as per dynamics ax technical architect .prognosis guarded given multiple complex medical issues. The impression and plan of care has been dictated as directed. : I performed a history and examination of this patient, discussed the same with the dictator. I agree with the dictator's note ,documented as a scribe. Any additional findings or plans will be noted.
[2023-11-10] MEDS ORDERED: ZINC OXIDE PASTE (Z-GUARD) 1 APPLIC TOPICAL PRN (14:06)
--- NOTE | 2023-11-10 14:10 | P.PN ---
Subjective Progress Note Date: 11/10/23 Patient is a 63-year-old white male with past medical history significant for chronic bilateral lower extremity wounds with multiple previous debridements, peripheral vascular disease, recent femoropopliteal artery bypass, AAA, coronary artery disease, hyperlipidemia, hypertension, and tobacco dependence. He is currently intubated to the mechanical ventilator in the intensive care unit, and unable to provide any information for HPI. Apparently, he presented to the emergency department on 10/29/2023 with his lower extremity wounds and suspected cellulitis/sepsis. He follows with vascular surgery. On 11/03/2023 he did undergo debridement of his bilateral lower extremity wounds. Wound cultures p ositive for polymicrobial organisms including Pseudomonas aeruginosa, MRSA, Enterococcus faecalis. Antibiotics are being directed by infectious disease. Yesterday, on 11/05/2023 the patient was having some abdominal pain and issues with hypotension. A rapid response was called. CT of the abdomen and pelvis without contrast demonstrated a pneumoperitoneum. Patient was then taken to the operating room yesterday evening for an exploratory laparotomy, was found to have a perforated gastric ulcer; subsequently underwent repair with a modified Jasvir patch. Patient was transferred back to the intensive care unit in critical condition. Currently, patient is being evaluated in the intensive care unit intubated to the mechanical ventilator. Most recent ABGs consistent with profound metabolic acidosis. PaO2 327, pCO2 45, pH of 7.12. He was given 3 A of sodium bicarbonate. Current ventilator settings include assist-control, respiratory rate 16, tidal volume 450, FiO2 50%, and PEEP of 5. Chest x-ray, showing the tip of the endotracheal tube in a proximal position, approximately 9 cm above the prince. Nasogastric tube within the stomach. There is a left- sided pleural effusion. Dr. Crystal previously had the endotracheal tube advanced 3 cm. Patient is currently sedated on propofol which is infusing at 25 mcg/kg/min. He is synchronous with mechanical ventilator. Remains hypotensive, currently requiring vasopressors in the form of norepinephrine which is infusing at 0.1 mcg/kg/min. Postoperatively, the patient was fluid resuscitated with a total of 2 L crystalloid fluid. Lactated Ringer's also infusing at 125 mL/h. CVP is reading 8 mmHg. Patient has remained anuric. Heart rhythm appears atrial fibrillation with controlled ventricular response ranging from 80 to 90 bpm. Patient does have history of A-fib, not on any anticoagulation currently. Patient's abdominal incision has a wound VAC, and there is a compressed SANDY drain that is drained a total of 510 mL of serosanguineous output since surgery. Patient is currently covered on a combination of Zosyn, daptomycin, and Eraxis, which are being directed by infectious disease. Currently, hypothermic with external warming blanket on. Postoperative CBC: WBC count 31.8, hemoglobin 9.4, hematocrit 32.7, platelets 647. Postoperative BMP: Sodium 135, potassium 4.2, chloride 112, serum bicarb 12, BUN 53, creatinine 2.46, glucose 120. Overall, prognosis is guarded. On 11/07/2023, the patient is being seen for a follow-up. The patient remains intubated on the mechanical ventilator. This morning, the patient is sedated on propofol which is running at 40 mcg/kg/min. The patient remains intubated on mechanical ventilator on assist-control mode rate of 16, tidal volume of 450, FiO2 of 35% with a PEEP of 5. Chest x-ray shows consolidation of the lung bases more so on the left. ET tube is in good location. The patient also has an NG tube in place. The blood gas showed a pH of 7.42 with a pCO2 of 31 and pO2 of 87. No significant extra secretion the patient is currently intubated by #8 orotracheal tube. Hemodynamically, the patient remains on low-dose norepinephrine which is running at 0.05 mcg/kg/min. The patient is on a bicarb infusion running at 125 cc an hour. Output from the SANDY drain is quite extensive approximately 500 cc of serous material over the past 8 hours. The patient remains on the same antibiotic coverage and this includes Zosyn, daptomycin and Eraxis. On today's evaluation, the patient's white cell count is at 21 with a hemoglobin 7.1 and a platelet count of 477. BUN is 53 with a creatinine of 2.8 and a sodium levels at 137. The potassium levels of 3.3. Serum bicarb is at 20. Cultures from the wound is positive for Pseudomonas aeruginosa, Morganella and Enterococcus faecalis. Sputum sample is still negative for the time being. The patient is afebrile. The wounds in the lower extremity are appropriately dressed. Noted the patient has undergone multiple previous debridements of the lower extremity wounds. He is known to have severe PAD vascular disease. He is status post femoropopliteal bypass surgery. He is also known to have abdominal aortic aneurysm status post endovascular grafting along with coronary artery disease and hypertension hyperlipidemia. The patient is also status post gastric perforation with pneumoperitoneum requiring immediate surgical interventionAnd the patient has undergone exploratory laparotomy and repair of the perforated gastric ulcer with a modified Jasvir patch technique. Surgery was done on 11/05/2023 and the patient is currently postop day #2. He remains n.p.o. for now. On today's evaluation of 11/08/2023, the patient is being seen for a follow-up. Noted this morning, the patient remains sedated on propofol which is running at 40 mcg/kg/min. The patient was given a sedation holiday which she essentially failed. He did not recover his mentation and the patient was essentially thrashing and becoming asynchronous with mechanical ventilator and the trial was aborted. As such, the patient was kept on mechanical ventilator and earlier this morning the patient was on assist-control mode at rate of 16, tidal volume of 450, FiO2 of 35% with a PEEP of 5. Chest x-ray remains unchanged and the patient has consolidation lower lungs bilaterally and possibly some underlying pleural effusions. Blood gas showed a pH of 7.47 with a pCO2 of 33 and pO2 of 145. The patient remains in atrial fibrillation. The patient remains on pressors and norepinephrine is running at 0.03 mcg/kg/min. The patient remains NPO. Output from the NG tube is minimal at this point in time. Output from the SANDY drain was noted and it is in the order of 1.2 L of serous material over the past 24 hours. The surgical wound site is dry clean and intact. Wound VAC is also in place. The overall fluid balance over the past 24 hours is positive for 0.4 L. This sputum sample is positive for stenotrophomonas and Doreen. The current antibiotic coverage includes a combination of Eraxis, daptomycin and Zosyn. Blood work from today shows a WBC count of 12.8, hemoglobin of 7 and a platelet count of 316. BUN is 52 with a creatinine of 3.07 and a sodium levels at 137 and potassium level is at 3.9. Calcium level is low at 6.4. Phosphorus level is at 5.1. Triglycerides at 174. Patient is afebrile. The patient is currently postop day #3 following a repair of a perforated gastric ulcer with a modified Jasvir patch technique. Surgery was done on 11/05/2023. 11/09/2023, the patient is being seen for a follow-up. The patient remains intubated on the mechanical ventilator. Several attempt to wean the patient off sedation. That the patient was encephalopathic and thrashing and was not following any commands. Based on that, the patient was kept on propofol and this morning the patient is on propofol running at 40 mcg/kg/min. Possibility of encephalopathy with rates metabolic encephalopathy, drug encephalopathy, ur emic/hepatic encephalopathy is to be considered. Possibility of an acute CVA in the setting of chronic atrial fibrillation cannot be completely ruled out. The patient is currently on a mechanical ventilator assist-control mode with a rate of 16, tidal volume of 450, FiO2 35% with a PEEP of 5. Blood gas showed a pH of 7.42 pCO2 pO2 of 139. The sputum sample was positive for stenotrophomonas and Levaquin was also added. The patient has no major respiratory secretions. Chest x-ray shows bilateral lower lobe consolidation/effusion. Hemodynamically, the patient is on no pressors. The SANDY drain is still draining approximately a liter of serosanguineous material on a daily basis and the wound VAC is still in place and the patient was started on TPN for nutritional support. Antibiotic coverage includes a combination of Zosyn, Eraxis and vancomycin. Patient is also suffering from an acute kidney injury. Creatinine is on the rise and this morning creatinine is at 3.27 with a BUN of 54. Sodium levels of 137, potassium of 4.2, LFTs are normal, albumin is at 1.9 with a total protein of 4.7. WBC count is at 15.4 with a hemoglobin of 7.2 and a platelet count of 315. Cardiac rhythm is atrial fibrillation with a controlled rate. 11/10/2023, the patient is being seen for a follow-up. Remains intubated on the mechanical ventilator. Based on underlying encephalopathy/delirium, the patient was given a CAT scan of the brain that showed no acute abnormalities. Ammonia level was also not elevated. Another sedation holiday will be given. The patient was taken off sedation this morning and did not return to being monitored. Meanwhile, the patient remains on mechanical ventilator. The patient on assist-control mode rate of 16, tidal volume of 450, FiO2 35% and PEEP of 5. Antibiotic coverage remains unchanged. Follow-up chest x-ray from today shows some limited improvement in the lower lobe consolidation bilaterally. The patient is on Levaquin regarding stenotrophomonas in the sputum. Rest of the antibiotic coverage is unchanged compared to yesterday as the patient remains on a combination of Zosyn, Eraxis and daptomycin. The patient is still producing serosanguineous fluid from the SANDY drain in order of 1 L over the past 24 hours. He is on low-dose norepinephrine running at 0.02 mcg/kg/min. In terms of blood work, the ABGs from today shows a pH of 7.41 with a pCO2 of 36 and a pO2 of 134. The white cell count is 18 with a hemoglobin of 7.9 and a platelet count of 293. BUN is 54 with a creatinine of 3.2 and a sodium levels at 136 and a potassium level is at 4.2. Fluid balance over the past 24 hours has been -1.7 L. The patient is producing adequate amount of urine output at this point in time. The patient is also on TPN for nutritional support. NG tube is in place and there are no signs of any active bleeding. Blood sugars at 94. Objective - Vital Signs Vital signs: Vital Signs Temp 98.5 F 11/10/23 08:00 Pulse 96 11/10/23 09:00 Resp 17 11/10/23 09:00 BP 103/63 11/06/23 03:00 Pulse Ox 100 11/10/23 09:00 FiO2 30 11/10/23 09:00 Intake & Output 11/09/23 11/10/23 11/10/23 18:59 06:59 18:59 Intake Total 960.000 470.792 513 Output Total 2065 1095 385 Balance -1105.000 -624.208 128 Weight 93.7 kg Intake: IV 292 312 153 KVO 120 120 50 Levofloxacin 250Mg-D5w 50 Pmx 250 mg In Dextrose/ Water 1 50ml.bag @ 50 mls /hr IVPB Q24H [facility] Rx#: [id number] Piperacillin-Tazobactam 3 100 100 100 .375 gm In Sodium Chloride 0.9% 100 ml @ 25 mls/hr IVPB Q8HR [facility] Rx# :[id number] Pressure lines 72 42 3 Intake, IV Titration 668.000 158.792 360 Amount Anidulafungin 100 mg In 130 260 Sodium Chloride 0.9% 100 ml @ 84 mls/hr IVPB DAILY [facility] Rx#:[id number] Magnesium Sulfate-D5w Pmx 100 1 gm In Dextrose/Water 1 100ml.bag @ 100 mls/hr IVPB ONCE ONE Rx#: [id number] Mvi, Adult No.4 with Vit 338 32 K 10 ml Trace (Conc-1Ml/ Dose) 1 ml Sodium Acetate 30 meq Potassium Chloride 40 meq Calcium Gluconate 1 gm Magnesium Sulfate gm 1 gm In Amino Acids 5 %/Dextrose 20 % 1 ,000 ml @ 30 mls/hr IV . Q24H [facility] Rx#:[id number] Norepinephrine 4 mg In 44.446 Sodium Chloride 0.9% 250 ml @ 0.03 MCG/KG/MIN 9. 851 mls/hr IV .Q24H [facility] Rx#:[id number] propofoL 1,000 mg In 100.000 82.346 100 Empty Bag 1 bag @ 15 MCG/ KG/MIN 7.757 mls/hr IV . [id number] [facility] Rx#:[id number] Output: Drainage 1080 550 280 Abdomen 500 Right 580 550 280 Urine 985 545 105 Other: Voiding Method Indwelling Catheter Indwelling Catheter Indwelling Catheter ABP, PAP, CO, CI - Last Documented Arterial Blood Pressure 106/58 - Exam GENERAL EXAM: Sedated and intubated to the mechanical ventilator, synchronous mechanical ventilator, facial grimacing with deep painful stimuli, withdraws to pain in all 4 extremities HEAD: Normocephalic and atraumatic EYES: Normal reaction of pupils, equal size. NOSE: Clear with pink turbinates. THROAT: No erythema or exudates. NECK: No masses, no JVD. Right IJ central line catheter in place. CHEST: No chest wall deformity. LUNGS: Equal air entry with no crackles, wheeze, rhonchi or dullness. Intubated to mechanical ventilator, synchronous with current vent settings. Minimal endotracheal secretions. Peak pressures 28 CVS: S1 and S2 normal with no audible murmur, irregular rhythm. No extra heart sounds ABDOMEN: Midline abdominal incision with wound VAC, wound not approximated. SANDY drain compressed and draining serosanguineous output. Abdomen is soft, bowel sounds hypoactive, no appreciated organomegaly. The patient has a SANDY drain in place. Output is noted in the order of 1200 cc over the past 24 hours. SPINE: No scoliosis or deformity SKIN: Bilateral lower extremities wrapped in postoperative dressing/Abhijeet Kerlix wrap CENTRAL NERVOUS SYSTEM: Sedated on propofol, no focal deficits, withdraws to pain in all 4 extremities. EXTREMITIES: Bilateral lower extremities wrapped in Kerlix, distal pulses posterior tibial found with Doppler. Brachial arterial line in place with good arterial waveform. Bilateral radial pulses weak but palpable, capillary refill greater than 3 seconds. - Labs CBC & Chem 7: 11/10/23 03:25 11/10/23 03:25 Labs: Abnormal Lab Results - Last 24 Hours (Table) 11/10/23 11/10/23 11/10/23 Range/Units 03:25 03:25 03:25 WBC 18.0 H (3.8-10.6) k/uL RBC 3.07 L (4.30-5.90) m/uL Hgb 7.9 L (13.0-17.5) gm/dL Hct 26.0 L (39.0-53.0) % MCHC 30.6 L (31.0-37.0) g/dL RDW 23.7 H (11.5-15.5) % Neutrophils # 16.5 H (1.3-7.7) k/uL Lymphocytes # 0.6 L (1.0-4.8) k/uL ABG pO2 (83-108) mmHg ABG O2 Saturation (94-97) % Sodium 136 L (137-145) mmol/L Carbon Dioxide 21 L (22-30) mmol/L BUN 54 H (9-20) mg/dL Creatinine 3.21 H (0.66-1.25) mg/dL Glucose 111 H (74-99) mg/dL Calcium 7.1 L (8.4-10.2) mg/dL Phosphorus 6.2 H (2.5-4.5) mg/dL AST 89 H (17-59) U/L Alkaline Phosphatase 149 H (38-126) U/L Total Protein 4.9 L (6.3-8.2) g/dL Albumin 1.9 L (3.5-5.0) g/dL 11/10/23 Range/Units 05:23 WBC (3.8-10.6) k/uL RBC (4.30-5.90) m/uL Hgb (13.0-17.5) gm/dL Hct (39.0-53.0) % MCHC (31.0-37.0) g/dL RDW (11.5-15.5) % Neutrophils # (1.3-7.7) k/uL Lymphocytes # (1.0-4.8) k/uL ABG pO2 134 H (83-108) mmHg ABG O2 Saturation 99.6 H (94-97) % Sodium (137-145) mmol/L Carbon Dioxide (22-30) mmol/L BUN (9-20) mg/dL Creatinine (0.66-1.25) mg/dL Glucose (74-99) mg/dL Calcium (8.4-10.2) mg/dL Phosphorus (2.5-4.5) mg/dL AST (17-59) U/L Alkaline Phosphatase (38-126) U/L Total Protein (6.3-8.2) g/dL Albumin (3.5-5.0) g/dL Assessment and Plan Plan: Perforated gastric ulcer and pneumoperitoneum, status post exploratory laparotomy with gastric ulcer repair with modified Jasvir patch on 11/05/2023, the patient is postop day # 5. The patient remains n.p.o. and the patient was started on TPN for nutritional support. 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 Furthermore, the sputum sample showed stenotrophomonas and Doreen. Consider the possibility of a hospital-acquired/ventilator acquired pneumonia with gram-negative infection. The patient is currently on Levaquin. Will avoid the use of Bactrim due to concerns of renal dysfunction. Overall respiratory status is unchanged. Limited improvement in the lower lobe consolidation on today's chest x-ray. Oxygenation is stable. Septic shock with hypotension and shock, currently requiring vasopressors in the form of norepinephrine. And the patient is on low-dose norepinephrine. Sepsis and septic shock Severe nonanion gap metabolic acidosis, treated with a bicarb infusion, improved Bilateral lower extremity wounds/cellulitis, status-post debridement on 11/03/2023. Wounds positive for polymicrobial organisms including Pseudomonas aeruginosa, MRSA, Enterococcus faecalis. Antibiotics being directed by infectious disease specialist Peripheral vascular disease, with recent history of femoral popliteal artery bypass on 06/06/2023, subsequently, developing wound infection and dehiscence, undergoing multiple excisional debridements since then. Atrial fibrillation with controlled ventricular response Normocytic, normochromic anemia Acute leukocytosis Acute kidney injury secondary to hypotension and ATN, nonoliguric and the patient has a positive urine output. The patient remains nonoliguric History of hypertension History of hyperlipidemia History of coronary artery disease with previous stent placement History of AAA with previous endovascular repair History of alcoholism Chronic ongoing tobacco dependence Plan Continue vent support, and changed to pressure support mode of mechanical ventilation with a pressure support of 12 and a PEEP of 5 Discontinue the bicarb infusion Keep the patient off propofol and assess mental status and use Precedex if needed Continue TPN for nutritional support and IV fluids are currently at KVO monitor mental status Pressors titrated according to the blood pressure need Keep the patient on same antibiotic coverage to include a combination of daptomycin, Eraxis and Zosyn, and Levaquin to cover the stenotrophomonas. Ideally, I would like to use Bactrim. Nevertheless based on his underlying renal failure, I am going to cover this patient with Levaquin and monitor his progress. Keep the patient NPO. Will discuss feeding with general surgery. TPN started Monitor hemodynamics Monitor renal function Condition is obviously critical and will continue to follow make further recommendations based on progress. This evaluation was done more than 30 minutes. Time with Patient: Greater than 30
--- NOTE | 2023-11-10 14:34 | P.PN ---
Subjective Progress Note Date: 11/10/23 Principal diagnosis: Reason for follow-up is bilateral lower extremity infected wounds and perforated peptic ulcer Patient is a 63-year-old male with a past medical history significant for hypertension hyperlipidemia coronary artery disease, PAD multiple vascular procedures including left femoral-tibial bypass and now has been dealing with the wound to the left lower extremity as well as wound to the right leg being managed in the outpatient setting by vascular surgery Center the hospital by the home care nurse concerning for worsening infection. Patient last wound culture positive for VRE and Pseudomonas. Patient is status post Sharp excisional debridement bilateral lower extremities along with cultures of the purulent material completed on 11/03/2023.Patient was taken to the OR 11/05/2023 found to have perforated gastric ulcer status post exploratory laparotomy repair of the perforated ulcer with modified Jasvir patch. On today's evaluation that is 11/10/2023,the patient continues to be afebrile, the patient is on the ventilator FiO2 is 35% sedation has been put on hold patient seem to be responding to his name and some simple commands no significant purulent secretion through the ET diarrhea or any other changes has been reported. The patient white count is 18.0 creatinine is 3.21 chest x-ray bilateral lower lung opacity Objective - Vital Signs Vital signs: Vital Signs Temp 97.4 F L 11/10/23 12:00 Pulse 100 11/10/23 12:16 Resp 20 11/10/23 12:00 BP 103/63 11/06/23 03:00 Pulse Ox 100 11/10/23 12:00 FiO2 35 11/10/23 13:16 Intake & Output 11/09/23 11/10/23 11/10/23 18:59 06:59 18:59 Intake Total 960.000 470.792 533 Output Total 2065 1095 640 Balance -1105.000 -624.208 -107 Weight 93.7 kg Intake: IV 292 312 173 KVO 120 120 70 Levofloxacin 250Mg-D5w 50 Pmx 250 mg In Dextrose/ Water 1 50ml.bag @ 50 mls /hr IVPB Q24H [facility] Rx#: [id number] Piperacillin-Tazobactam 3 100 100 100 .375 gm In Sodium Chloride 0.9% 100 ml @ 25 mls/hr IVPB Q8HR [facility] Rx# :[id number] Pressure lines 72 42 3 Intake, IV Titration 668.000 158.792 360 Amount Anidulafungin 100 mg In 130 260 Sodium Chloride 0.9% 100 ml @ 84 mls/hr IVPB DAILY [facility] Rx#:[id number] Magnesium Sulfate-D5w Pmx 100 1 gm In Dextrose/Water 1 100ml.bag @ 100 mls/hr IVPB ONCE ONE Rx#: [id number] Mvi, Adult No.4 with Vit 338 32 K 10 ml Trace (Conc-1Ml/ Dose) 1 ml Sodium Acetate 30 meq Potassium Chloride 40 meq Calcium Gluconate 1 gm Magnesium Sulfate gm 1 gm In Amino Acids 5 %/Dextrose 20 % 1 ,000 ml @ 30 mls/hr IV . Q24H ONE Rx#:[id number] Norepinephrine 4 mg In 44.446 Sodium Chloride 0.9% 250 ml @ 0.03 MCG/KG/MIN 9. 851 mls/hr IV .Q24H [facility] Rx#:[id number] propofoL 1,000 mg In 100.000 82.346 100 Empty Bag 1 bag @ 15 MCG/ KG/MIN 7.757 mls/hr IV . [id number] [facility] Rx#:[id number] Output: Drainage 1080 550 480 Abdomen 500 Right 580 550 480 Urine 985 545 160 Other: Voiding Method Indwelling Catheter Indwelling Catheter Indwelling Catheter ABP, PAP, CO, CI - Last Documented Arterial Blood Pressure 119/61 - Exam GENERAL DESCRIPTION: Middle-age male intubated on the vent RESPIRATORY SYSTEM: Unlabored breathing , decreased breath sounds at bases HEART: S1 S2 regular rate and rhythm , ABDOMEN: Soft , mild distention EXTREMITIES: Bilateral extremity wounds currently dressed no drainage - Labs CBC & Chem 7: 11/10/23 03:25 11/10/23 03:25 Labs: Abnormal Lab Results - Last 24 Hours (Table) 11/10/23 11/10/23 11/10/23 Range/Units 03:25 03:25 03:25 WBC 18.0 H (3.8-10.6) k/uL RBC 3.07 L (4.30-5.90) m/uL Hgb 7.9 L (13.0-17.5) gm/dL Hct 26.0 L (39.0-53.0) % MCHC 30.6 L (31.0-37.0) g/dL RDW 23.7 H (11.5-15.5) % Neutrophils # 16.5 H (1.3-7.7) k/uL Lymphocytes # 0.6 L (1.0-4.8) k/uL ABG pO2 (83-108) mmHg ABG O2 Saturation (94-97) % Sodium 136 L (137-145) mmol/L Carbon Dioxide 21 L (22-30) mmol/L BUN 54 H (9-20) mg/dL Creatinine 3.21 H (0.66-1.25) mg/dL Glucose 111 H (74-99) mg/dL Calcium 7.1 L (8.4-10.2) mg/dL Phosphorus 6.2 H (2.5-4.5) mg/dL AST 89 H (17-59) U/L Alkaline Phosphatase 149 H (38-126) U/L Total Protein 4.9 L (6.3-8.2) g/dL Albumin 1.9 L (3.5-5.0) g/dL 11/10/23 Range/Units 05:23 WBC (3.8-10.6) k/uL RBC (4.30-5.90) m/uL Hgb (13.0-17.5) gm/dL Hct (39.0-53.0) % MCHC (31.0-37.0) g/dL RDW (11.5-15.5) % Neutrophils # (1.3-7.7) k/uL Lymphocytes # (1.0-4.8) k/uL ABG pO2 134 H (83-108) mmHg ABG O2 Saturation 99.6 H (94-97) % Sodium (137-145) mmol/L Carbon Dioxide (22-30) mmol/L BUN (9-20) mg/dL Creatinine (0.66-1.25) mg/dL Glucose (74-99) mg/dL Calcium (8.4-10.2) mg/dL Phosphorus (2.5-4.5) mg/dL AST (17-59) U/L Alkaline Phosphatase (38-126) U/L Total Protein (6.3-8.2) g/dL Albumin (3.5-5.0) g/dL Assessment and Plan (1) Bilateral lower leg cellulitis Current Visit: Yes Status: Acute Code(s): L03.116 - CELLULITIS OF LEFT LOWER LIMB; L03.115 - CELLULITIS OF RIGHT LOWER LIMB SNOMED Code(s): 126286955 (2) Open wound of both lower extremities Current Visit: Yes Status: Acute Code(s): S81.801A - UNSPECIFIED OPEN WOUND, RIGHT LOWER LEG, INITIAL ENCOUNTER; S81.802A - UNSPECIFIED OPEN WOUND, LEFT LOWER LEG, INITIAL ENCOUNTER SNOMED Code(s): 98620495 (3) Sepsis Current Visit: Yes Status: Acute Code(s): A41.9 - SEPSIS, UNSPECIFIED ORGANISM SNOMED Code(s): 08041520 (4) Pneumonia Current Visit: Yes Status: Acute Code(s): J18.9 - PNEUMONIA, UNSPECIFIED ORGANISM SNOMED Code(s): 753814307 Plan: 1patient presented to hospital with sepsis in this patient who did have a fever tachycardia elevated white count source is likely bilateral lower extremity wound and cellulitis with more extensive wound to the left lower extremity in this patient who did have a history of PAD and has multiple vascular procedure last wound culture done from the right leg has been Pseudomonas and VRE that was done on 10/03/2023, culture done this admission are growing Pseudomonas aeruginosa Enterococcus faecalis that is not VRE and MRSA 2patient is status post debridement and deep culture completed on 11/03/2023 which did grow multiple pathogen including Pseudomonas Morganella Enterococcus faecalis and MRSA 3patient did have a perforated peptic ulcer status post laparotomy and modified Jasvir patch 4-patient sputum is growing stenotrophomonas concerning for gram-negative pneumonia 5-patient is currently being treated the daptomycin, Zosyn Levaquin and Eraxis nursing staff to address discoloration of the right leg with the vascular surgeon care was discussed with emulsion operator Dictation was produced using [employer] dictation software. please excuse any grammatical, word or spelling errors. Time with Patient: Less than 30
[2023-11-10] MEDS: DEXMEDETOMIDINE/0.9% NACL(PMX) 400 MCG in EMPTY BAG 1 BAG IV SCH (15:24)
[2023-11-10 17:29] LABS: Glucose,Whole Blood 103 mg/dL (70-110)
[2023-11-10] MEDS: MVI, ADULT NO.4 WITH VIT K 10 ML, TRACE (CONC-1ML/DOSE) 1 ML, SODIUM ACETATE 40 MEQ, PO... IV SCH (19:45)
[2023-11-10 23:33] LABS: Glucose,Whole Blood 98 mg/dL (70-110)
[2023-11-11] MEDS: MVI, ADULT NO.4 WITH VIT K 10 ML, TRACE (CONC-1ML/DOSE) 1 ML, SODIUM ACETATE 40 MEQ, PO... IV SCH (01:00)
[2023-11-11 04:36] LABS: Anisocytosis Moderate; Basophils % (A) 0 %; Eosinophils # (A) 0.1 k/uL (0-0.7); Eosinophils % (A) 1 %; HCT 25.2 % (39.0-53.0); HGB 7.6 gm/dL (13.0-17.5); Hypochromasia Marked; Lymphocytes # (A) 0.6 k/uL (1.0-4.8); Lymphocytes % (A) 4 %; MCH 26.1 pg (25.0-35.0); MCHC 30.4 g/dL (31.0-37.0); Mean Platelet Volume 9.6; Microcytosis Slight; Monocytes # (A) 0.6 k/uL (0-1.0); Monocytes % (A) 3 %; Neutrophils # (A) 16.1 k/uL (1.3-7.7); Neutrophils % (A) 91 %; Platelet Count 315 k/uL (150-450); RBC 2.93 m/uL (4.30-5.90); RDW 23.6 % (11.5-15.5); WBC 17.6 k/uL (3.8-10.6)
[2023-11-11 05:27] LABS: ALT 17 U/L (4-49); AST 73 U/L (17-59); African American GFR (CKD) 22 (>60 ml/min/1.73 sqM); Albumin 1.9 g/dL (3.5-5.0); Alkaline Phosphatase 154 U/L (38-126); Anion Gap 10 mmol/L; Blood Urea Nitrogen 54 mg/dL (9-20); Calcium 7.5 mg/dL (8.4-10.2); Carbon Dioxide 21 mmol/L (22-30); Chloride 106 mmol/L (98-107); Glucose 98 mg/dL (74-99); Non-African American GFR(CKD) 19 (>60 ml/min/1.73 sqM); Potassium 4.5 mmol/L (3.5-5.1); Sodium 137 mmol/L (137-145); Total Bilirubin 1.1 mg/dL (0.2-1.3)
[2023-11-11 05:32] LABS: ABG HCO3 23 mmol/L (21-25); ABG Oxygen Saturation 99.2 % (94-97); ABG PCO2 37 mmHg (35-45); ABG PO2 125 mmHg (83-108); ABG TCO2 24 mmol/L (19-24); Allen Test Performed? Yes
[2023-11-11 05:48] LABS: Phosphorus 6.2 mg/dL (2.5-4.5)
[2023-11-11 06:47] LABS: Glucose,Whole Blood 78 mg/dL (70-110)
--- NOTE | 2023-11-11 07:45 | XR ---
EXAMINATION TYPE: XR chest 1V portable DATE OF EXAM: 11/11/2023 5:24 AM CLINICAL INDICATION: Male, 63 years old with history of Intubated; H COMPARISON: Chest radiographs from TECHNIQUE: XR chest 1V portable Frontal view of the chest. FINDINGS: Lungs/Pleura: Blunting of the left costophrenic angle. There is no evidence of right pleural effusion , focal consolidation, or pneumothorax. Pulmonary vascularity: Pulmonary vascular congestion. Heart/mediastinum: Cardiomediastinal silhouette is unremarkable. Musculoskeletal: No acute osseous pathology. Other findings: None Lines/Tubes: Endotracheal tube with distal tip 2.3 cm above the prince. Nasogastric tube with its distal tip and side-port projecting under the diaphragm. Right internal jugular central venous catheter with distal tip at the cavoatrial junction. IMPRESSION: 1. Support tubes in appropriate position. 2. Probable left pleural effusion.
--- NOTE | 2023-11-11 11:22 | P.PN ---
Subjective Progress Note Date: 11/11/23 Patient is a 63-year-old white male with past medical history significant for chronic bilateral lower extremity wounds with multiple previous debridements, peripheral vascular disease, recent femoropopliteal artery bypass, AAA, coronary artery disease, hyperlipidemia, hypertension, and tobacco dependence. He is currently intubated to the mechanical ventilator in the intensive care unit, and unable to provide any information for HPI. Apparently, he presented to the emergency department on 10/29/2023 with his lower extremity wounds and suspected cellulitis/sepsis. He follows with vascular surgery. On 11/03/2023 he did undergo debridement of his bilateral lower extremity wounds. Wound cultures positive for polymicrobial organisms including Pseudomonas aeruginosa, MRSA, Enterococcus faecalis. Antibiotics are being directed by infectious disease. Yesterday, on 11/05/2023 the patient was having some abdominal pain and issues with hypotension. A rapid response was called. CT of the abdomen and pelvis without contrast demonstrated a pneumoperitoneum. Patient was then taken to the operating room yesterday evening for an exploratory laparotomy, was found to have a perforated gastric ulcer; subsequently underwent repair with a modified Jasvir patch. Patient was transferred back to the intensive care unit in critical condition. Currently, patient is being evaluated in the intensive care unit intubated to the mechanical ventilator. Most recent ABGs consistent with profound metabolic acidosis. PaO2 327, pCO2 45, pH of 7.12. He was given 3 A of sodium bicarbonate. Current ventilator settings include assist-control, respiratory rate 16, tidal volume 450, FiO2 50%, and PEEP of 5. Chest x-ray, showing the tip of the endotracheal tube in a proximal position, approximately 9 cm above the prince. Nasogastric tube within the stomach. There is a left- sided pleural effusion. Dr. Crystal previously had the endotracheal tube advanced 3 cm. Patient is currently sedated on propofol which is infusing at 25 mcg/kg/min. He is synchronous with mechanical ventilator. Remains hypotensive, currently requiring vasopressors in the form of norepinephrine which is infusing at 0.1 mcg/kg/min. Postoperatively, the patient was fluid resuscitated with a total of 2 L crystalloid fluid. Lactated Ringer's also infusing at 125 mL/h. CVP is reading 8 mmHg. Patient has remained anuric. Heart rhythm appears atrial fibrillation with controlled ventricular response ranging from 80 to 90 bpm. Patient does have history of A-fib, not on any anticoagulation currently. Patient's abdominal incision has a wound VAC, and there is a compressed SANDY drain that is drained a total of 510 mL of serosanguineous output since surgery. Patient is currently covered on a combination of Zosyn, daptomycin, and Eraxis, which are being directed by infectious disease. Currently, hypothermic with external warming blanket on. Postoperative CBC: WBC count 31.8, hemoglobin 9.4, hematocrit 32.7, platelets 647. Postoperative BMP: Sodium 135, potassium 4.2, chloride 112, serum bicarb 12, BUN 53, creatinine 2.46, glucose 120. Overall, prognosis is guarded. On 11/07/2023, the patient is being seen for a follow-up. The patient remains intubated on the mechanical ventilator. This morning, the patient is sedated on propofol which is running at 40 mcg/kg/min. The patient remains intubated on mechanical ventilator on assist-control mode rate of 16, tidal volume of 450, FiO2 of 35% with a PEEP of 5. Chest x-ray shows consolidation of the lung bases more so on the left. ET tube is in good location. The patient also has an NG tube in place. The blood gas showed a pH of 7.42 with a pCO2 of 31 and pO2 of 87. No significant extra secretion the patient is currently intubated by #8 orotracheal tube. Hemodynamically, the patient remains on low-dose norepinephrine which is running at 0.05 mcg/kg/min. The patient is on a bicarb infusion running at 125 cc an hour. Output from the SANDY drain is quite extensive approximately 500 cc of serous material over the past 8 hours. The patient remains on the same antibiotic coverage and this includes Zosyn, daptomycin and Eraxis. On today's evaluation, the patient's white cell count is at 21 with a hemoglobin 7.1 and a platelet count of 477. BUN is 53 with a creatinine of 2.8 and a sodium levels at 137. The potassium levels of 3.3. Serum bicarb is at 20. Cultures from the wound is positive for Pseudomonas aeruginosa, Morganella and Enterococcus faecalis. Sputum sample is still negative for the time being. The patient is afebrile. The wounds in the lower extremity are appropriately dressed. Noted the patient has undergone multiple previous debridements of the lower extremity wounds. He is known to have severe PAD vascular disease. He is status post femoropopliteal bypass surgery. He is also known to have abdominal aortic aneurysm status post endovascular grafting along with coronary artery disease and hypertension hyperlipidemia. The patient is also status post gastric perforation with pneumoperitoneum requiring immediate surgical interventionAnd the patient has undergone exploratory laparotomy and repair of t he perforated gastric ulcer with a modified Jasvir patch technique. Surgery was done on 11/05/2023 and the patient is currently postop day #2. He remains n.p.o. for now. On today's evaluation of 11/08/2023, the patient is being seen for a follow-up. Noted this morning, the patient remains sedated on propofol which is running at 40 mcg/kg/min. The patient was given a sedation holiday which she essentially failed. He did not recover his mentation and the patient was essentially thrashing and becoming asynchronous with mechanical ventilator and the trial was aborted. As such, the patient was kept on mechanical ventilator and earlier this morning the patient was on assist-control mode at rate of 16, tidal volume of 450, FiO2 of 35% with a PEEP of 5. Chest x-ray remains unchanged and the pa tient has consolidation lower lungs bilaterally and possibly some underlying pleural effusions. Blood gas showed a pH of 7.47 with a pCO2 of 33 and pO2 of 145. The patient remains in atrial fibrillation. The patient remains on pressors and norepinephrine is running at 0.03 mcg/kg/min. The patient remains NPO. Output from the NG tube is minimal at this point in time. Output from the SANDY drain was noted and it is in the order of 1.2 L of serous material over the past 24 hours. The surgical wound site is dry clean and intact. Wound VAC is also in place. The overall fluid balance over the past 24 hours is positive for 0.4 L. This sputum sample is positive for stenotrophomonas and Doreen. The current antibiotic coverage includes a combination of Eraxis, daptomycin and Zosyn. Blood work from today shows a WBC count of 12.8, hemoglobin of 7 and a platelet count of 316. BUN is 52 with a creatinine of 3.07 and a sodium levels at 137 and potassium level is at 3.9. Calcium level is low at 6.4. Phosphorus level is at 5.1. Triglycerides at 174. Patient is afebrile. The patient is currently postop day #3 following a repair of a perforated gastric ulcer with a modified Jasvir patch technique. Surgery was done on 11/05/2023. 11/09/2023, the patient is being seen for a follow-up. The patient remains intubated on the mechanical ventilator. Several attempt to wean the patient off sedation. That the patient was encephalopathic and thrashing and was not following any commands. Based on that, the patient was kept on propofol and this morning the patient is on propofol running at 40 mcg/kg/min. Possibility of encephalopathy with rates metabolic encephalopathy, drug encephalopathy, uremic/hepatic encephalopathy is to be considered. Possibility of an acute CVA in the setting of chronic atrial fibrillation cannot be completely ruled out. The patient is currently on a mechanical ventilator assist-control mode with a rate of 16, tidal volume of 450, FiO2 35% with a PEEP of 5. Blood gas showed a pH of 7.42 pCO2 pO2 of 139. The sputum sample was positive for stenotrophomonas and Levaquin was also added. The patient has no major respiratory secretions. Chest x-ray shows bilateral lower lobe consolidation/effusion. Hemodynamically, the patient is on no pressors. The SANDY drain is still draining approximately a liter of serosanguineous material on a daily basis and the wound VAC is still in place and the patient was started on TPN for nutritional support. Antibiotic coverage includes a combination of Zosyn, Eraxis and vancomycin. Patient is also suffering from an acute kidney injury. Creatinine is on the rise and this morning creatinine is at 3.27 with a BUN of 54. Sodium levels of 137, potassium of 4.2, LFTs are normal, albumin is at 1.9 with a total protein of 4.7. WBC count is at 15.4 with a hemoglobin of 7.2 and a platelet count of 315. Cardiac rhythm is atrial fibrillation with a controlled rate. 11/10/2023, the patient is being seen for a follow-up. Remains intubated on the mechanical ventilator. Based on underlying encephalopathy/delirium, the patient was given a CAT scan of the brain that showed no acute abnormalities. Ammonia level was also not elevated. Another sedation holiday will be given. The patient was taken off sedation this morning and did not return to being monitored. Meanwhile, the patient remains on mechanical ventilator. The patient on assist-control mode rate of 16, tidal volume of 450, FiO2 35% and PEEP of 5. Antibiotic coverage remains unchanged. Follow-up chest x-ray from today shows some limited improvement in the lower lobe consolidation bilaterally. The patient is on Levaquin regarding stenotrophomonas in the sputum. Rest of the antibiotic coverage is unchanged compared to yesterday as the patient remains on a combination of Zosyn, Eraxis and daptomycin. The patient is still producing serosanguineous fluid from the SANDY drain in order of 1 L over the past 24 hours. He is on low-dose norepinephrine running at 0.02 mcg/kg/min. In terms of blood work, the ABGs from today shows a pH of 7.41 with a pCO2 of 36 and a pO2 of 134. The white cell count is 18 with a hemoglobin of 7.9 and a platelet count of 293. BUN is 54 with a creatinine of 3.2 and a sodium levels at 136 and a potassium level is at 4.2. Fluid balance over the past 24 hours has been -1.7 L. The patient is producing adequate amount of urine output at this point in time. The patient is also on TPN for nutritional support. NG tube is in place and there are no signs of any active bleeding. Blood sugars at 94. 11/11/2023, the patient is being seen for a follow-up. Postop day 6. Remains in tubated on the mechanical ventilator. Yesterday given sedation holiday patient continues to have underlying encephalopathy/delirium and began desaturating during trial. Another sedation holiday will be given. Meanwhile, the patient remains on mechanical ventilator. The patient on assist-control mode rate of 16, tidal volume of 500, FiO2 35% and PEEP of 5. Antibiotic coverage remains unchanged. Follow-up chest x-ray from today shows some limited improvement in the lower lobe consolidation bilaterally. The patient is on Levaquin regarding stenotrophomonas in the sputum. Rest of the antibiotic coverage is unchanged compared to yesterday as the patient remains on a combination of Zosyn, Eraxis and daptomycin. The patient is still producing serosanguineous fluid from the SANDY drain in order of 660 mL, in last 24 hours. He is on low-dose norepinephrine running at 0.01 mcg/kg/min. In terms of blood work, the ABGs from today shows a pH of 7.40 with a pCO2 of 37 pO2 of 125. White cell count 17.6 hemoglobin 7.6 platelets 315. BUN is 54 with a creatinine of 3.3 and a sodium levels at 136 and a potassium level is at 4.5 Fluid balance over the past 24 hours has been - 450 mL. The patient is producing adequate amount of urine output at this point in time. The patient is also on TPN for nutritional support. NG tube is in place and there are no signs of any active bleeding. Blood sugars at 98. Objective - Vital Signs Vital signs: Vital Signs Temp 97.9 F 11/11/23 08:00 Pulse 102 H 11/11/23 10:15 Resp 17 11/11/23 10:15 BP 103/63 11/06/23 03:00 Pulse Ox 100 11/11/23 10:15 FiO2 35 11/11/23 09:33 Intake & Output 11/10/23 11/11/23 11/11/23 18:59 06:59 18:59 Intake Total 783.187 482.151 460.983 Output Total 1130 620 410 Balance -346.813 -137.849 50.983 Weight 93.7 kg 94.3 kg Intake: IV 333 220 350 DAPTOmycin 500 mg In 50 Sodium Chloride 0.9% 50 ml @ 100 mls/hr IVPB Q48H [facility] Rx#:[id number] KVO 230 220 100 Levofloxacin 250Mg-D5w 100 Pmx 250 mg In Dextrose/ Water 1 50ml.bag @ 50 mls /hr IVPB Q24H [facility] Rx#: [id number] Piperacillin-Tazobactam 3 100 100 .375 gm In Sodium Chloride 0.9% 100 ml @ 25 mls/hr IVPB Q8HR [facility] Rx# :[id number] Pressure lines 3 Intake, IV Titration 450.187 262.151 110.983 Amount Anidulafungin 100 mg In 260 Sodium Chloride 0.9% 100 ml @ 84 mls/hr IVPB DAILY [facility] Rx#:[id number] Norepinephrine 4 mg In 90.187 162.151 21.125 Sodium Chloride 0.9% 250 ml @ 0.03 MCG/KG/MIN 9. 851 mls/hr IV .Q24H [facility] Rx#:[id number] propofoL 1,000 mg In 100 Empty Bag 1 bag @ 15 MCG/ KG/MIN 7.757 mls/hr IV . [id number] [facility] Rx#:[id number] propofoL 1,000 mg In 100 89.858 Empty Bag 1 bag @ 35 MCG/ KG/MIN 19.677 mls/hr IV . Q5H5M [facility] Rx#:[id number] Output: Drainage 660 250 Right 660 250 Urine 470 620 160 Other: Voiding Method Indwelling Catheter Indwelling Catheter ABP, PAP, CO, CI - Last Documented Arterial Blood Pressure 102/51 - Exam GENERAL EXAM: Sedated and intubated to the mechanical ventilator, synchronous mechanical ventilator, facial grimacing with deep painful stimuli, withdraws to pain in all 4 extremities HEAD: Normocephalic and atraumatic EYES: Normal reaction of pupils, equal size. NOSE: Clear with pink turbinates. THROAT: No erythema or exudates. NECK: No masses, no JVD. Right IJ central line catheter in place. CHEST: No chest wall deformity. LUNGS: Equal air entry with no crackles, wheeze, rhonchi or dullness. Intubated to mechanical ventilator, synchronous with current vent settings. Minimal endotracheal secretions. Peak pressures 28 CVS: S1 and S2 normal with no audible murmur, irregular rhythm. No extra heart sounds ABDOMEN: Midline abdominal incision with wound VAC, wound not approximated. SANDY drain compressed and draining serosanguineous output. Abdomen is soft, bowel sounds hypoactive, no appreciated organomegaly. The patient has a SANDY drain in place. Output is noted in the order of 1200 cc over the past 24 hours. SPINE: No scoliosis or deformity SKIN: Bilateral lower extremities wrapped in postoperative dressing/Abhijeet Kerlix wrap CENTRAL NERVOUS SYSTEM: Sedated on propofol, no focal deficits, withdraws to pain in all 4 extremities. EXTREMITIES: Bilateral lower extremities wrapped in Kerlix, distal pulses posterior tibial found with Doppler. Brachial arterial line in place with good arterial waveform. Bilateral radial pulses weak but palpable, capillary refill greater than 3 seconds. - Labs CBC & Chem 7: 11/11/23 03:44 11/11/23 03:44 Labs: Abnormal Lab Results - Last 24 Hours (Table) 11/11/23 11/11/23 11/11/23 Range/Units 03:44 03:44 03:44 WBC 17.6 H (3.8-10.6) k/uL RBC 2.93 L (4.30-5.90) m/uL Hgb 7.6 L (13.0-17.5) gm/dL Hct 25.2 L (39.0-53.0) % MCHC 30.4 L (31.0-37.0) g/dL RDW 23.6 H (11.5-15.5) % Neutrophils # 16.1 H (1.3-7.7) k/uL Lymphocytes # 0.6 L (1.0-4.8) k/uL ABG pO2 (83-108) mmHg ABG O2 Saturation (94-97) % Carbon Dioxide 21 L (22-30) mmol/L BUN 54 H (9-20) mg/dL Creatinine 3.32 H (0.66-1.25) mg/dL Calcium 7.5 L (8.4-10.2) mg/dL Phosphorus 6.2 H (2.5-4.5) mg/dL AST 73 H (17-59) U/L Alkaline Phosphatase 154 H (38-126) U/L Total Protein 5.0 L (6.3-8.2) g/dL Albumin 1.9 L (3.5-5.0) g/dL 11/11/23 Range/Units 05:29 WBC (3.8-10.6) k/uL RBC (4.30-5.90) m/uL Hgb (13.0-17.5) gm/dL Hct (39.0-53.0) % MCHC (31.0-37.0) g/dL RDW (11.5-15.5) % Neutrophils # (1.3-7.7) k/uL Lymphocytes # (1.0-4.8) k/uL ABG pO2 125 H (83-108) mmHg ABG O2 Saturation 99.2 H (94-97) % Carbon Dioxide (22-30) mmol/L BUN (9-20) mg/dL Creatinine (0.66-1.25) mg/dL Calcium (8.4-10.2) mg/dL Phosphorus (2.5-4.5) mg/dL AST (17-59) U/L Alkaline Phosphatase (38-126) U/L Total Protein (6.3-8.2) g/dL Albumin (3.5-5.0) g/dL Microbiology - Last 24 Hours (Table) 11/05/23 16:40 Blood Culture - Final Blood Assessment and Plan Assessment: Perforated gastric ulcer and pneumoperitoneum, status post exploratory laparotomy with gastric ulcer repair with modified Jasvir patch on 11/05/2023, t he patient is postop day # 5. The patient remains n.p.o. and the patient was started on TPN for nutritional support. Acute hypoxic respiratory failure with bilateral lower lobe consolidation, consider possibility of pneumonia/effusion left worse than right. Furthermore, the sputum sample showed stenotrophomonas and Doreen. Consider the possibility of a hospital-acquired/ventilator acquired pneumonia with gram-negative infection. The patient is currently on Levaquin. Will avoid the use of Bactrim due to concerns of renal dysfunction. Overall respiratory status is unchanged. Limited improvement in the lower lobe consolidation on today's chest x-ray. Oxygenation is stable. Septic shock with hypotension and shock, currently requiring vasopressors in the form of norepinephrine. And the patient is on low-dose norepinephrine. Sepsis and septic shock Severe nonanion gap metabolic acidosis, treated with a bicarb infusion, improved Bilateral lower extremity wounds/cellulitis, status-post debridement on 11/03/2023. Wounds positive for polymicrobial organisms including Pseudomonas aeruginosa, MRSA, Enterococcus faecalis. Antibiotics being directed by infectious disease specialist Peripheral vascular disease, with recent history of femoral popliteal artery bypass on 06/06/2023, subsequently, developing wound infection and dehiscence, undergoing multiple excisional debridements since then. Atrial fibrillation with controlled ventricular response Normocytic, normochromic anemia Acute leukocytosis Acute kidney injury secondary to hypotension and ATN, nonoliguric and the patient has a positive urine output. The patient remains nonoliguric History of hypertension History of hyperlipidemia History of coronary artery disease with previous stent placement History of AAA with previous endovascular repair History of alcoholism Chronic ongoing tobacco dependence Plan: Continue vent support, and changed tidal volume to 500 Discontinued the bicarb infusion Keep the patient off propofol and assess mental status and use Precedex if need ed Continue TPN for nutritional support and IV fluids are currently at KVO monitor mental status Pressors titrated according to the blood pressure need Keep the patient on same antibiotic coverage to include a combination of daptomycin, Eraxis and Zosyn, and Levaquin to cover the stenotrophomonas. Ideally, I would like to use Bactrim. Nevertheless based on his underlying renal failure, I am going to cover this patient with Levaquin and monitor his progress. Keep the patient NPO. Will discuss feeding with general surgery. TPN started Monitor hemodynamics Monitor renal function Condition is obviously critical and will continue to follow make further recommendations based on progress. This evaluation was done more than 30 minutes. Time with Patient: Greater than 30
[2023-11-11] MEDS: FUROSEMIDE 10 MG/ML 10 ML VIAL IV STA (11:28)
--- NOTE | 2023-11-11 11:55 | P.PN ---
Subjective patient is seen for follow-up for acute kidney injury. Patient remains on the vent. FiO2 is at 35%. maintained on TPN, currently at 32 mL an hour Urine output at 20-40mL an hour. Serum creatinine at 3.3 today. Objective - Vital Signs Vital signs: Vital Signs Temp 97.9 F 11/11/23 08:00 Pulse 102 H 11/11/23 10:15 Resp 17 11/11/23 10:15 BP 103/63 11/06/23 03:00 Pulse Ox 100 11/11/23 10:15 FiO2 35 11/11/23 09:33 Intake & Output 11/10/23 11/11/23 11/11/23 18:59 06:59 18:59 Intake Total 783.187 482.151 505.584 Output Total 1130 620 410 Balance -346.813 -137.849 95.584 Weight 93.7 kg 94.3 kg Intake: IV 333 220 350 DAPTOmycin 500 mg In 50 Sodium Chloride 0.9% 50 ml @ 100 mls/hr IVPB Q48H [facility] Rx#:[id number] KVO 230 220 100 Levofloxacin 250Mg-D5w 100 Pmx 250 mg In Dextrose/ Water 1 50ml.bag @ 50 mls /hr IVPB Q24H [facility] Rx#: [id number] Piperacillin-Tazobactam 3 100 100 .375 gm In Sodium Chloride 0.9% 100 ml @ 25 mls/hr IVPB Q8HR [facility] Rx# :[id number] Pressure lines 3 Intake, IV Titration 450.187 262.151 155.584 Amount Anidulafungin 100 mg In 260 Sodium Chloride 0.9% 100 ml @ 84 mls/hr IVPB DAILY [facility] Rx#:[id number] Norepinephrine 4 mg In 90.187 162.151 21.125 Sodium Chloride 0.9% 250 ml @ 0.03 MCG/KG/MIN 9. 851 mls/hr IV .Q24H [facility] Rx#:[id number] propofoL 1,000 mg In 100 Empty Bag 1 bag @ 15 MCG/ KG/MIN 7.757 mls/hr IV . [id number] [facility] Rx#:[id number] propofoL 1,000 mg In 100 134.459 Empty Bag 1 bag @ 35 MCG/ KG/MIN 19.677 mls/hr IV . Q5H5M [facility] Rx#:[id number] Output: Drainage 660 250 Right 660 250 Urine 470 620 160 Other: Voiding Method Indwelling Catheter Indwelling Catheter ABP, PAP, CO, CI - Last Documented Arterial Blood Pressure 102/51 - Exam Currently on the vent. FiO2 35%. Examination of the heart S1 and S2 Examination of the lungs bilateral breath sounds are heard Abdomen is dressed Bilateral lower extremities are wrapped. significant edema noted bilaterally 2+ along with significant scrotal edema. - Labs CBC & Chem 7: 11/11/23 03:44 11/11/23 03:44 Labs: Abnormal Lab Results - Last 24 Hours (Table) 11/11/23 11/11/23 11/11/23 Range/Units 03:44 03:44 03:44 WBC 17.6 H (3.8-10.6) k/uL RBC 2.93 L (4.30-5.90) m/uL Hgb 7.6 L (13.0-17.5) gm/dL Hct 25.2 L (39.0-53.0) % MCHC 30.4 L (31.0-37.0) g/dL RDW 23.6 H (11.5-15.5) % Neutrophils # 16.1 H (1.3-7.7) k/uL Lymphocytes # 0.6 L (1.0-4.8) k/uL ABG pO2 (83-108) mmHg ABG O2 Saturation (94-97) % Carbon Dioxide 21 L (22-30) mmol/L BUN 54 H (9-20) mg/dL Creatinine 3.32 H (0.66-1.25) mg/dL Calcium 7.5 L (8.4-10.2) mg/dL Phosphorus 6.2 H (2.5-4.5) mg/dL AST 73 H (17-59) U/L Alkaline Phosphatase 154 H (38-126) U/L Total Protein 5.0 L (6.3-8.2) g/dL Albumin 1.9 L (3.5-5.0) g/dL 11/11/23 Range/Units 05:29 WBC (3.8-10.6) k/uL RBC (4.30-5.90) m/uL Hgb (13.0-17.5) gm/dL Hct (39.0-53.0) % MCHC (31.0-37.0) g/dL RDW (11.5-15.5) % Neutrophils # (1.3-7.7) k/uL Lymphocytes # (1.0-4.8) k/uL ABG pO2 125 H (83-108) mmHg ABG O2 Saturation 99.2 H (94-97) % Carbon Dioxide (22-30) mmol/L BUN (9-20) mg/dL Creatinine (0.66-1.25) mg/dL Calcium (8.4-10.2) mg/dL Phosphorus (2.5-4.5) mg/dL AST (17-59) U/L Alkaline Phosphatase (38-126) U/L Total Protein (6.3-8.2) g/dL Albumin (3.5-5.0) g/dL Microbiology - Last 24 Hours (Table) 11/05/23 16:40 Blood Culture - Final Blood Assessment and Plan Assessment: 1. Acute kidney injury, ATN, oliguric initially, currently nonoliguric secondary to hypotension and sepsis. UA shows trace protein and small blood. No evidence of obstruction on CT of the abdomen. 2. Nongap metabolic acidosis secondary to acute kidney injury 3. Sepsis with septic shock from perforated viscus and bilateral lower extremity wounds. 4. Bilateral lower extremity wounds with wound cultures growing MRSA, Pseudomonas and Enterococcus faecalis. Patient is being followed by ID. 5. Acute hypoxic respiratory failure maintained on the vent 6. Volume overload and significant third spacing 7. Hyperphosphatemia associated with acute kidney injury, add phosphate binders once oral intake is started Plan: IV Lasix x 1 Continue to avoid nephrotoxic agents.
[2023-11-11 12:14] LABS: Glucose,Whole Blood 85 mg/dL (70-110)
--- NOTE | 2023-11-11 12:29 | P.PN ---
Subjective Progress Note Date: 11/11/23 Patient is a 63-year-old white male with past medical history significant for chronic bilateral lower extremity wounds with multiple previous debridements, peripheral vascular disease, recent femoropopliteal artery bypass, AAA, coronary artery disease, hyperlipidemia, hypertension, and tobacco dependence. He is currently intubated to the mechanical ventilator in the intensive care unit, and unable to provide any information for HPI. Apparently, he presented to the emergency department on 10/29/2023 with his lower extremity wounds and suspected cellulitis/sepsis. He follows with vascular surgery. On 11/03/2023 he did undergo debridement of his bilateral lower extremity wounds. Wound cultures p ositive for polymicrobial organisms including Pseudomonas aeruginosa, MRSA, Enterococcus faecalis. Antibiotics are being directed by infectious disease. Yesterday, on 11/05/2023 the patient was having some abdominal pain and issues with hypotension. A rapid response was called. CT of the abdomen and pelvis without contrast demonstrated a pneumoperitoneum. Patient was then taken to the operating room yesterday evening for an exploratory laparotomy, was found to have a perforated gastric ulcer; subsequently underwent repair with a modified Jasvir patch. Patient was transferred back to the intensive care unit in critical condition. Currently, patient is being evaluated in the intensive care unit intubated to the mechanical ventilator. Most recent ABGs consistent with profound metabolic acidosis. PaO2 327, pCO2 45, pH of 7.12. He was given 3 A of sodium bicarbonate. Current ventilator settings include assist-control, respiratory rate 16, tidal volume 450, FiO2 50%, and PEEP of 5. Chest x-ray, showing the tip of the endotracheal tube in a proximal position, approximately 9 cm above the prince. Nasogastric tube within the stomach. There is a left- sided pleural effusion. Dr. Crystal previously had the endotracheal tube advanced 3 cm. Patient is currently sedated on propofol which is infusing at 25 mcg/kg/min. He is synchronous with mechanical ventilator. Remains hypotensive, currently requiring vasopressors in the form of norepinephrine which is infusing at 0.1 mcg/kg/min. Postoperatively, the patient was fluid resuscitated with a total of 2 L crystalloid fluid. Lactated Ringer's also infusing at 125 mL/h. CVP is reading 8 mmHg. Patient has remained anuric. Heart rhythm appears atrial fibrillation with controlled ventricular response ranging from 80 to 90 bpm. Patient does have history of A-fib, not on any anticoagulation currently. Patient's abdominal incision has a wound VAC, and there is a compressed SANDY drain that is drained a total of 510 mL of serosanguineous output since surgery. Patient is currently covered on a combination of Zosyn, daptomycin, and Eraxis, which are being directed by infectious disease. Currently, hypothermic with external warming blanket on. Postoperative CBC: WBC count 31.8, hemoglobin 9.4, hematocrit 32.7, platelets 647. Postoperative BMP: Sodium 135, potassium 4.2, chloride 112, serum bicarb 12, BUN 53, creatinine 2.46, glucose 120. Overall, prognosis is guarded. On 11/07/2023, the patient is being seen for a follow-up. The patient remains intubated on the mechanical ventilator. This morning, the patient is sedated on propofol which is running at 40 mcg/kg/min. The patient remains intubated on mechanical ventilator on assist-control mode rate of 16, tidal volume of 450, FiO2 of 35% with a PEEP of 5. Chest x-ray shows consolidation of the lung bases more so on the left. ET tube is in good location. The patient also has an NG tube in place. The blood gas showed a pH of 7.42 with a pCO2 of 31 and pO2 of 87. No significant extra secretion the patient is currently intubated by #8 orotracheal tube. Hemodynamically, the patient remains on low-dose norepinephrine which is running at 0.05 mcg/kg/min. The patient is on a bicarb infusion running at 125 cc an hour. Output from the SANDY drain is quite extensive approximately 500 cc of serous material over the past 8 hours. The patient remains on the same antibiotic coverage and this includes Zosyn, daptomycin and Eraxis. On today's evaluation, the patient's white cell count is at 21 with a hemoglobin 7.1 and a platelet count of 477. BUN is 53 with a creatinine of 2.8 and a sodium levels at 137. The potassium levels of 3.3. Serum bicarb is at 20. Cultures from the wound is positive for Pseudomonas aeruginosa, Morganella and Enterococcus faecalis. Sputum sample is still negative for the time being. The patient is afebrile. The wounds in the lower extremity are appropriately dressed. Noted the patient has undergone multiple previous debridements of the lower extremity wounds. He is known to have severe PAD vascular disease. He is status post femoropopliteal bypass surgery. He is also known to have abdominal aortic aneurysm status post endovascular grafting along with coronary artery disease and hypertension hyperlipidemia. The patient is also status post gastric perforation with pneumoperitoneum requiring immediate surgical interventionAnd the patient has undergone exploratory laparotomy and repair of the perforated gastric ulcer with a modified Jasvir patch technique. Surgery was done on 11/05/2023 and the patient is currently postop day #2. He remains n.p.o. for now. On today's evaluation of 11/08/2023, the patient is being seen for a follow-up. Noted this morning, the patient remains sedated on propofol which is running at 40 mcg/kg/min. The patient was given a sedation holiday which she essentially failed. He did not recover his mentation and the patient was essentially thrashing and becoming asynchronous with mechanical ventilator and the trial was aborted. As such, the patient was kept on mechanical ventilator and earlier this morning the patient was on assist-control mode at rate of 16, tidal volume of 450, FiO2 of 35% with a PEEP of 5. Chest x-ray remains unchanged and the patient has consolidation lower lungs bilaterally and possibly some underlying pleural effusions. Blood gas showed a pH of 7.47 with a pCO2 of 33 and pO2 of 145. The patient remains in atrial fibrillation. The patient remains on pressors and norepinephrine is running at 0.03 mcg/kg/min. The patient remains NPO. Output from the NG tube is minimal at this point in time. Output from the SANDY drain was noted and it is in the order of 1.2 L of serous material over the past 24 hours. The surgical wound site is dry clean and intact. Wound VAC is also in place. The overall fluid balance over the past 24 hours is positive for 0.4 L. This sputum sample is positive for stenotrophomonas and Doreen. The current antibiotic coverage includes a combination of Eraxis, daptomycin and Zosyn. Blood work from today shows a WBC count of 12.8, hemoglobin of 7 and a platelet count of 316. BUN is 52 with a creatinine of 3.07 and a sodium levels at 137 and potassium level is at 3.9. Calcium level is low at 6.4. Phosphorus level is at 5.1. Triglycerides at 174. Patient is afebrile. The patient is currently postop day #3 following a repair of a perforated gastric ulcer with a modified Jasvir patch technique. Surgery was done on 11/05/2023. 11/09/2023, the patient is being seen for a follow-up. The patient remains intubated on the mechanical ventilator. Several attempt to wean the patient off sedation. That the patient was encephalopathic and thrashing and was not following any commands. Based on that, the patient was kept on propofol and this morning the patient is on propofol running at 40 mcg/kg/min. Possibility of encephalopathy with rates metabolic encephalopathy, drug encephalopathy, ur emic/hepatic encephalopathy is to be considered. Possibility of an acute CVA in the setting of chronic atrial fibrillation cannot be completely ruled out. The patient is currently on a mechanical ventilator assist-control mode with a rate of 16, tidal volume of 450, FiO2 35% with a PEEP of 5. Blood gas showed a pH of 7.42 pCO2 pO2 of 139. The sputum sample was positive for stenotrophomonas and Levaquin was also added. The patient has no major respiratory secretions. Chest x-ray shows bilateral lower lobe consolidation/effusion. Hemodynamically, the patient is on no pressors. The SANDY drain is still draining approximately a liter of serosanguineous material on a daily basis and the wound VAC is still in place and the patient was started on TPN for nutritional support. Antibiotic coverage includes a combination of Zosyn, Eraxis and vancomycin. Patient is also suffering from an acute kidney injury. Creatinine is on the rise and this morning creatinine is at 3.27 with a BUN of 54. Sodium levels of 137, potassium of 4.2, LFTs are normal, albumin is at 1.9 with a total protein of 4.7. WBC count is at 15.4 with a hemoglobin of 7.2 and a platelet count of 315. Cardiac rhythm is atrial fibrillation with a controlled rate. 11/10/2023, the patient is being seen for a follow-up. Remains intubated on the mechanical ventilator. Based on underlying encephalopathy/delirium, the patient was given a CAT scan of the brain that showed no acute abnormalities. Ammonia level was also not elevated. Another sedation holiday will be given. The patient was taken off sedation this morning and did not return to being monitored. Meanwhile, the patient remains on mechanical ventilator. The patient on assist-control mode rate of 16, tidal volume of 450, FiO2 35% and PEEP of 5. Antibiotic coverage remains unchanged. Follow-up chest x-ray from today shows some limited improvement in the lower lobe consolidation bilaterally. The patient is on Levaquin regarding stenotrophomonas in the sputum. Rest of the antibiotic coverage is unchanged compared to yesterday as the patient remains on a combination of Zosyn, Eraxis and daptomycin. The patient is still producing serosanguineous fluid from the SANDY drain in order of 1 L over the past 24 hours. He is on low-dose norepinephrine running at 0.02 mcg/kg/min. In terms of blood work, the ABGs from today shows a pH of 7.41 with a pCO2 of 36 and a pO2 of 134. The white cell count is 18 with a hemoglobin of 7.9 and a platelet count of 293. BUN is 54 with a creatinine of 3.2 and a sodium levels at 136 and a potassium level is at 4.2. Fluid balance over the past 24 hours has been -1.7 L. The patient is producing adequate amount of urine output at this point in time. The patient is also on TPN for nutritional support. NG tube is in place and there are no signs of any active bleeding. Blood sugars at 94. On 11/11/2023, the patient is being seen for a follow-up. Remains intubated on the mechanical ventilator. Noted the patient was given a sedation holiday that lasted for several hours. During that time, the patient remained calm with occasional agitation. No significant recovery in the level of alertness and the patient remained encephalopathic. Ultimately, he became apneic and the sedation holiday was discontinued. Noted while having the sedation holiday yesterday, the patient was on a pressure support mode of mechanical ventilation. This morning, the patient is back on propofol which is running at 35 mcg/kg/min. He is on assist-control mode rate of 16, tidal volume of 500, FiO2 of 35% with a PEEP of 5. Blood gas showed a pH of 7.4 with a pCO2 of 37 and a pO2 of 125. Chest x-ray findings are essentially stable. There is interval clearing of the lower lobe pulmonary infiltrates and there is probably a left-sided pleural effusion. Orotracheal tubes are in good location. The white cell count of 17.6 with a hemoglobin of 7.6 and a platelet count of 315. Rest of the electrolytes show a BUN of 54 with a creatinine of 3.3 and the creatinine is stable compared to yesterday. BUN is 54. Serum bicarbonate 21 with a sodium levels of 137. The patient is afebrile. The patient is minimal amount of norepinephrine which is running at 0.01 mcg/kg/min. The patient receiving TPN for nutritional support. The overall fluid balance is 0 over the past 24 hours. No other significant events otherwise for now. SANDY drain output is more than 500 cc over the past 24 hours. Surgical wound site over the abdomen is dry clean and intact. NG output is minimal at this point in time. Objective - Vital Signs Vital signs: Vital Signs Temp 97.3 F L 11/11/23 12:00 Pulse 107 H 11/11/23 12:00 Resp 21 11/11/23 12:00 BP 103/63 11/06/23 03:00 Pulse Ox 100 11/11/23 12:00 FiO2 35 11/11/23 12:00 Intake & Output 11/10/23 11/11/23 11/11/23 18:59 06:59 18:59 Intake Total 783.187 482.151 525.584 Output Total 7871 869 7224 Balance -346.813 -137.849 -534.416 Weight 93.7 kg 94.3 kg Intake: IV 333 220 370 DAPTOmycin 500 mg In 50 Sodium Chloride 0.9% 50 ml @ 100 mls/hr IVPB Q48H [facility] Rx#:[id number] KVO 230 220 120 Levofloxacin 250Mg-D5w 100 Pmx 250 mg In Dextrose/ Water 1 50ml.bag @ 50 mls /hr IVPB Q24H [facility] Rx#: [id number] Piperacillin-Tazobactam 3 100 100 .375 gm In Sodium Chloride 0.9% 100 ml @ 25 mls/hr IVPB Q8HR [facility] Rx# :[id number] Pressure lines 3 Intake, IV Titration 450.187 262.151 155.584 Amount Anidulafungin 100 mg In 260 Sodium Chloride 0.9% 100 ml @ 84 mls/hr IVPB DAILY [facility] Rx#:[id number] Norepinephrine 4 mg In 90.187 162.151 21.125 Sodium Chloride 0.9% 250 ml @ 0.03 MCG/KG/MIN 9. 851 mls/hr IV .Q24H [facility] Rx#:[id number] propofoL 1,000 mg In 100 Empty Bag 1 bag @ 15 MCG/ KG/MIN 7.757 mls/hr IV . [id number] [facility] Rx#:[id number] propofoL 1,000 mg In 100 134.459 Empty Bag 1 bag @ 35 MCG/ KG/MIN 19.677 mls/hr IV . Q5H5M [facility] Rx#:[id number] Output: Drainage 660 800 Abdomen 500 Right 660 300 Urine 470 620 260 Other: Voiding Method Indwelling Catheter Indwelling Catheter Indwelling Catheter ABP, PAP, CO, CI - Last Documented Arterial Blood Pressure 131/67 - Exam GENERAL EXAM: Sedated and intubated to the mechanical ventilator, synchronous mechanical ventilator, facial grimacing with deep painful stimuli, withdraws to pain in all 4 extremities HEAD: Normocephalic and atraumatic EYES: Normal reaction of pupils, equal size. NOSE: Clear with pink turbinates. THROAT: No erythema or exudates. NECK: No masses, no JVD. Right IJ central line catheter in place. CHEST: No chest wall deformity. LUNGS: Equal air entry with no crackles, wheeze, rhonchi or dullness. Intubated to mechanical ventilator, synchronous with current vent settings. Minimal endotracheal secretions. Peak pressures 28 CVS: S1 and S2 normal with no audible murmur, irregular rhythm. No extra heart sounds ABDOMEN: Midline abdominal incision with wound VAC, wound not approximated. SANDY drain compressed and draining serosanguineous output. Abdomen is soft, bowel sounds hypoactive, no appreciated organomegaly. The patient has a SANDY drain in place. Output is noted in the order of 1200 cc over the past 24 hours. SPINE: No scoliosis or deformity SKIN: Bilateral lower extremities wrapped in postoperative dressing/Abhijeet Kerlix wrap CENTRAL NERVOUS SYSTEM: Sedated on propofol, no focal deficits, withdraws to pain in all 4 extremities. EXTREMITIES: Bilateral lower extremities wrapped in Kerlix, distal pulses posterior tibial found with Doppler. Brachial arterial line in place with good arterial waveform. Bilateral radial pulses weak but palpable, capillary refill greater than 3 seconds. - Labs CBC & Chem 7: 11/11/23 03:44 11/11/23 03:44 Labs: Abnormal Lab Results - Last 24 Hours (Table) 0911/11/23 11/11/23 Range/Units 03:44 03:44 03:44 WBC 17.6 H (3.8-10.6) k/uL RBC 2.93 L (4.30-5.90) m/uL Hgb 7.6 L (13.0-17.5) gm/dL Hct 25.2 L (39.0-53.0) % MCHC 30.4 L (31.0-37.0) g/dL RDW 23.6 H (11.5-15.5) % Neutrophils # 16.1 H (1.3-7.7) k/uL Lymphocytes # 0.6 L (1.0-4.8) k/uL ABG pO2 (83-108) mmHg ABG O2 Saturation (94-97) % Carbon Dioxide 21 L (22-30) mmol/L BUN 54 H (9-20) mg/dL Creatinine 3.32 H (0.66-1.25) mg/dL Calcium 7.5 L (8.4-10.2) mg/dL Phosphorus 6.2 H (2.5-4.5) mg/dL AST 73 H (17-59) U/L Alkaline Phosphatase 154 H (38-126) U/L Total Protein 5.0 L (6.3-8.2) g/dL Albumin 1.9 L (3.5-5.0) g/dL 11/11/23 Range/Units 05:29 WBC (3.8-10.6) k/uL RBC (4.30-5.90) m/uL Hgb (13.0-17.5) gm/dL Hct (39.0-53.0) % MCHC (31.0-37.0) g/dL RDW (11.5-15.5) % Neutrophils # (1.3-7.7) k/uL Lymphocytes # (1.0-4.8) k/uL ABG pO2 125 H (83-108) mmHg ABG O2 Saturation 99.2 H (94-97) % Carbon Dioxide (22-30) mmol/L BUN (9-20) mg/dL Creatinine (0.66-1.25) mg/dL Calcium (8.4-10.2) mg/dL Phosphorus (2.5-4.5) mg/dL AST (17-59) U/L Alkaline Phosphatase (38-126) U/L Total Protein (6.3-8.2) g/dL Albumin (3.5-5.0) g/dL Microbiology - Last 24 Hours (Table) 11/05/23 16:40 Blood Culture - Final Blood Assessment and Plan Plan: Perforated gastric ulcer and pneumoperitoneum, status post exploratory laparotomy with gastric ulcer repair with modified Jasvir patch on 11/05/2023, the patient is postop day # 6. The patient remains n.p.o. and the patient was started on TPN for nutritional support. Acute hypoxic respiratory failure with bilateral lower lobe consolidation, consider possibility of pneumonia/effusion left worse than right. Furthermore, the sputum sample showed stenotrophomonas and Doreen. Consider the possibility of a hospital-acquired/ventilator acquired pneumonia with gram-negative infection. The patient is currently on Levaquin. Will avoid the use of Bactrim due to concerns of renal dysfunction. Overall respiratory status is unchanged. Limited improvement in the lower lobe consolidation on today's chest x-ray. Oxygenation is stable. Septic shock with hypotension and shock, currently requiring vasopressors in the form of norepinephrine. And the patient is on low-dose norepinephrine. Sepsis and septic shock Severe nonanion gap metabolic acidosis, treated with a bicarb infusion, improved encephalopathy/delirium, the patient has failed several daily sedation holiday over the past 3 days. CAT scan of the brain is negative. Bilateral lower extremity wounds/cellulitis, status-post debridement on 11/03/2023. Wounds positive for polymicrobial organisms including Pseudomonas aeruginosa, MRSA, Enterococcus faecalis. Antibiotics being directed by i nfectious disease specialist Peripheral vascular disease, with recent history of femoral popliteal artery bypass on 06/06/2023, subsequently, developing wound infection and dehiscence, undergoing multiple excisional debridements since then. Atrial fibrillation with controlled ventricular response Normocytic, normochromic anemia Acute leukocytosis Acute kidney injury secondary to hypotension and ATN, nonoliguric and the patient has a positive urine output. The patient remains nonoliguric, the creatinine remained stable for now. History of hypertension History of hyperlipidemia History of coronary artery disease with previous stent placement History of AAA with previous endovascular repair History of alcoholism Chronic ongoing tobacco dependence Plan Continue vent support, Give the patient under sedation holiday Keep the patient off propofol and assess mental status and use Precedex if needed Continue TPN for nutritional support and IV fluids are currently at KVO monitor mental status Pressors titrated according to the blood pressure Keep the patient on same antibiotic coverage to include a combination of daptomycin, Eraxis and Zosyn, and Levaquin to cover the stenotrophomonas. Ideally, I would like to use Bactrim. Nevertheless based on his underlying renal failure, I am going to cover this patient with Levaquin and monitor his progress. Moderate output from the SANDY drain. Monitor renal function May consider tracheostomy tube insertion if fails to demonstrate adequate mentation off sedation which obviously 100 with ability to successfully wean extubate the patient. Condition is obviously critical and will continue to follow make further recommendations based on progress. This evaluation was done more than 30 minutes. Time with Patient: Greater than 30
--- NOTE | 2023-11-11 14:49 | P.PN ---
Subjective Progress Note Date: 11/11/23 This is 63-year-old gentleman with past medical history significant for PAD, multiple vascular procedures including femoral-tibial bypass followed by wound development, dehiscence of his left lower extremity, status post recent excisional debridement of the left lower leg wound with skin substitute placeme nt, excisional debridement of the left great toe wound and excisional debridement of right lower leg wound x 2 on 10/03/[address] Inman, vascular surgery, presented to the ER with worsening bilateral lower extremity pain, edema, reports right lower extremity "split open" over the last week with serous drainage. His visiting nurse evaluated patient on Monday recommending ER. Denies any chest pain, palpitations or shortness of breath. Denies nausea vomiting or diarrhea. Denies abdominal pain. Denies fever or chills. Denies lightheadedness, dizziness or focal deficits. Wound and blood cultures obtained, initiated on vancomycin in the ER. Tmax 101, WBC 16.3, increased to 19.67, CRP 12.6 .hemoglobin 7.7, platelets 468. Sodium 129, potassium 3.3, bicarb 19, BUN 10, creatinine 0.7. Lactic acid 2.2, improved with IV fluid hydration, 1.1. Magnesium 1-repeat level ordered stat. 10/31/2023 Tmax 101. WBC decreased to 15.1. reports decreased appetite. Sodium decreased to 127, renal function stable. Potassium 3.9, magnesium 1.2 - supplements ordered. Positive pain of bilateral lower extremities. Evaluated by infectious disease, antibiotics adjusted to Zyvox and meropenem. Denies chest pain, palpitations or shortness of breath. 11/01/2023 wound cultures growing Pseudomonas and Enterococcus faecalis, vancomycin and penicillin sensitive, afebrile, WBC up to 20.06, antibiotics further adjusted to Zosyn and daptomycin. Renal function stable. IV fluids adjusted yesterday to D5.9 with sodium improved up to 130. 11/02/2023 maintained on IV antibiotics as per ID. Afebrile, WBC decreased to 17.3. Hemoglobin 9.1, platelets 523. Sodium 131 on IV fluids of D5.9. Potas sium 3.8, magnesium 1.8, creatinine 0.9. Pain controlled , denies chest pain, palpitations or shortness of breath, maintaining O2 sats in the high 90s on room air. Scheduled for debridement and deep cultures tomorrow with vascular surgery. 11/07/2023 remains vent dependent with FiO2 35%/5 of PEEP. Maintained on diprovan, Levophed and bicarb drips. Bicarb 20, BUN 53, creatinine 2.84. continues on daptomycin, Eraxis, Zosyn. WBC 21, afebrile. Receiving potassium supplementation for potassium 3.3. Hemoglobin 7.1, platelets 477. 11/08/2023 Vent dependent, FiO2 35%/+5 of PEEP. Unsuccessful weaning trial yesterday, not following commands. Scheduled for another weaning trial today. Bicarb 23, bicarb drip discontinued. Levophed resumed after being off for few hours during the night. Echo reported EF 55 to 60%. Telemetry atrial fibrillation with controlled ventricular rates, cardiology following. Staff reported earlier this morning right foot noted to be cooler, mottled, improved with rewrapping of Abhijeet wrap's -less tight. TPN ordered. 11/09/2023 weaning trials attempted yesterday, patient was not following commands , not opening eyes ,shaking his head [id number]. Vent dependent, FiO2 35%/+5 of PEEP. Repeat weaning trial scheduled for today. continues on Levophed. Telemetry atrial fibrillation with controlled ventricular rate. continues to have large output from SANDY drain. Afebrile, WBC increased to 15.4. Hemoglobin 7.2, platelet count 317. Bicarb 21, BUN 54, creatinine 3.27. Sputum culture reporting stenotrophomonas maltophilia, Doreen albicans. Maintained on Zosyn, Eraxis and vancomycin. 11/10/2023 Vent dependent FiO2 35%/+5 of PEEP. Maintained on Levophed. Telemetry atrial fibrillation, controlled ventricular rate. Failed weaning trial yesterday, reattempting today. Bicarb 21, BUN 54, creatinine 3.21. Afebrile, WBC increased to 18. Continues on daptomycin, Zosyn, Levaquin, Eraxis. REVIEW OF SYSTEMS: Cannot be obtained as patient is intubated PHYSICAL EXAMINATION: GENERAL: The patient is intubated HEENT: Pupils are round and equally reacting to light. EOMI. No scleral icterus. No conjunctival pallor. Normocephalic, atraumatic. No pharyngeal erythema. No thyromegaly. CARDIOVASCULAR: S1 and S2 present. No murmurs, rubs, or gallops. PULMONARY: Coarse breath sounds bilaterally, no wheezing or crackles. ABDOMEN: Abdominal incision, wound VAC in place MUSCULOSKELETAL: No joint swelling or deformity. EXTREMITIES: Right lower extremity bandages seen NEUROLOGICAL: Intubated SKIN: No rashes. Assessment and plan Sepsis secondary to infected bilateral lower extremity wounds, cellulitis, recent excisional debridement of left lower leg wound with skin substitute placement, excisional debridement of the left great toe wound and excisional debridement of the right lower leg wound x 2 on 10/03/[address] Inman , vascular surgery. Cultures currently growing Pseudomonas aeruginosa and Enterococcus faecalis and MRSA. Status post debridement with deep cultures 830 reporting Pseudomonas Morganelli, Enterococcus faecalis and MRSA Perforated peptic ulcer and pneumoperitoneum status post exploratory laparotomy with gastric ulcer repair, modified Jasvir patch on 11/05/2023 Acute hypoxic respiratory failure, mechanical ventilator dependent Possible hospital-acquired, ventilator acquired pneumonia ;sputum culture reporting stenotrophomonas maltophilia, Doreen albicans Septic shock, requiring vasopressors Acute kidney injury, ATN secondary to sepsis, hypotension Metabolic acidosis secondary to the above, currently on bicarb drip History of Pseudomonas and VRE on last wound culture of left leg 10/03/2023, Lactic acidosis secondary to the above History of Left lower extremity skin dehiscence and wound infection,MSSA, status post excisional debridement and wound VAC. Left great toe ischemia status post excisional debridement History of left femoral tibial bypass secondary to critical limb ischemia History of aortic aneurysm with endovascular repair; Chronic Paroximal atrial fibrillation CAD, history of stent placement Essential hypertension Hyperlipidemia Nicotine dependence Daily alcohol use Noncompliance with medication regimen, patient is high risk for readmission. Iron deficient anemia Hypokalemia Hypomagnesemia Hyponatremia Monitor vital signs Monitor CBC Monitor CMP Continue telemetry monitoring Continue vent management Aggressive bronchopulmonary hygiene Continue breathing treatments Continue IV daptomycin, Eraxis, Zosyn, Levaquin Continue Levophed Continue tube feeding ID following Critical care following Surgery following Nephrology following Labs and medication were reviewed.. Continue same treatment. Continue with symptomatic treatment. Resume home medication. Monitor labs and vitals. DVT a nd GI prophylaxis. Further recommendations as per clinical course of the patient Dictation was produced using [employer] dictation software. please excuse any grammatical, word or spelling errors. Objective - Vital Signs Vital signs: Vital Signs Temp 97.3 F L 11/11/23 12:00 Pulse 117 H 11/11/23 13:00 Resp 16 11/11/23 13:00 BP 103/63 11/06/23 03:00 Pulse Ox 100 11/11/23 13:00 FiO2 35 11/11/23 12:31 Intake & Output 11/10/23 11/11/23 11/11/23 18:59 06:59 18:59 Intake Total 783.187 482.151 545.584 Output Total 6367 954 7883 Balance -346.813 -137.849 -839.416 Weight 93.7 kg 94.3 kg Intake: IV 333 220 390 DAPTOmycin 500 mg In 50 Sodium Chloride 0.9% 50 ml @ 100 mls/hr IVPB Q48H [facility] Rx#:[id number] KVO 230 220 140 Levofloxacin 250Mg-D5w 100 Pmx 250 mg In Dextrose/ Water 1 50ml.bag @ 50 mls /hr IVPB Q24H [facility] Rx#: [id number] Piperacillin-Tazobactam 3 100 100 .375 gm In Sodium Chloride 0.9% 100 ml @ 25 mls/hr IVPB Q8HR M[facility] Rx# :[id number] Pressure lines 3 Intake, IV Titration 450.187 262.151 155.584 Amount Anidulafungin 100 mg In 260 Sodium Chloride 0.9% 100 ml @ 84 mls/hr IVPB DAILY M[facility]SY Rx#:[id number] Norepinephrine 4 mg In 90.187 162.151 21.125 Sodium Chloride 0.9% 250 ml @ 0.03 MCG/KG/MIN 9. 851 mls/hr IV .Q24H M[facility]SY Rx#:[id number] propofoL 1,000 mg In 100 Empty Bag 1 bag @ 15 MCG/ KG/MIN 7.757 mls/hr IV . [id number] M[facility]SY Rx#:[id number] propofoL 1,000 mg In 100 134.459 Empty Bag 1 bag @ 35 MCG/ KG/MIN 19.677 mls/hr IV . Q5H5M M[facility]SY Rx#:[id number] Output: Drainage 660 800 Abdomen 500 Right 660 300 Urine 470 620 585 Other: Voiding Method Indwelling Catheter Indwelling Catheter Indwelling Catheter ABP, PAP, CO, CI - Last Documented Arterial Blood Pressure 107/55 - Labs CBC & Chem 7: 11/11/23 03:44 11/11/23 03:44 Labs: Abnormal Lab Results - Last 24 Hours (Table) 11/11/23 11/11/23 11/11/23 Range/Units 03:44 03:44 03:44 WBC 17.6 H (3.8-10.6) k/uL RBC 2.93 L (4.30-5.90) m/uL Hgb 7.6 L (13.0-17.5) gm/dL Hct 25.2 L (39.0-53.0) % MCHC 30.4 L (31.0-37.0) g/dL RDW 23.6 H (11.5-15.5) % Neutrophils # 16.1 H (1.3-7.7) k/uL Lymphocytes # 0.6 L (1.0-4.8) k/uL ABG pO2 (83-108) mmHg ABG O2 Saturation (94-97) % Carbon Dioxide 21 L (22-30) mmol/L BUN 54 H (9-20) mg/dL Creatinine 3.32 H (0.66-1.25) mg/dL Calcium 7.5 L (8.4-10.2) mg/dL Phosphorus 6.2 H (2.5-4.5) mg/dL AST 73 H (17-59) U/L Alkaline Phosphatase 154 H (38-126) U/L Total Protein 5.0 L (6.3-8.2) g/dL Albumin 1.9 L (3.5-5.0) g/dL 11/11/23 Range/Units 05:29 WBC (3.8-10.6) k/uL RBC (4.30-5.90) m/uL Hgb (13.0-17.5) gm/dL Hct (39.0-53.0) % MCHC (31.0-37.0) g/dL RDW (11.5-15.5) % Neutrophils # (1.3-7.7) k/uL Lymphocytes # (1.0-4.8) k/uL ABG pO2 125 H (83-108) mmHg ABG O2 Saturation 99.2 H (94-97) % Carbon Dioxide (22-30) mmol/L BUN (9-20) mg/dL Creatinine (0.66-1.25) mg/dL Calcium (8.4-10.2) mg/dL Phosphorus (2.5-4.5) mg/dL AST (17-59) U/L Alkaline Phosphatase (38-126) U/L Total Protein (6.3-8.2) g/dL Albumin (3.5-5.0) g/dL Microbiology - Last 24 Hours (Table) 11/05/23 16:40 Blood Culture - Final Blood
--- NOTE | 2023-11-11 14:55 | P.PN ---
Subjective Progress Note Date: 11/11/23 Principal diagnosis: Reason for follow-up is bilateral lower extremity infected wounds and perforated peptic ulcer Patient is a 63-year-old male with a past medical history significant for hypertension hyperlipidemia coronary artery disease, PAD multiple vascular procedures including left femoral-tibial bypass and now has been dealing with the wound to the left lower extremity as well as wound to the right leg being managed in the outpatient setting by vascular surgery Center the hospital by the home care nurse concerning for worsening infection. Patient last wound culture positive for VRE and Pseudomonas. Patient is status post Sharp excisional debridement bilateral lower extremities along with cultures of the purulent material completed on 11/03/2023.Patient was taken to the OR 11/05/2023 found to have perforated gastric ulcer status post exploratory laparotomy repair of the perforated ulcer with modified Jasvir patch. On today's evaluation that is 11/11/2023,the patient remains to be afebrile, patient is on ventilator FiO2 35% no significant purulent secretions through the ET patient is off the pressor support no diarrhea or any other changes reported by the nursing staff. Patient white count slightly down to 17.6, creatinine 3.32 Objective - Vital Signs Vital signs: Vital Signs Temp 97.3 F L 11/11/23 12:00 Pulse 117 H 11/11/23 13:00 Resp 16 11/11/23 13:00 BP 103/63 11/06/23 03:00 Pulse Ox 100 11/11/23 13:00 FiO2 35 11/11/23 12:31 Intake & Output 11/10/23 11/11/23 11/11/23 18:59 06:59 18:59 Intake Total 783.187 482.151 545.584 Output Total 0759 036 4308 Balance -346.813 -137.849 -839.416 Weight 93.7 kg 94.3 kg Intake: IV 333 220 390 DAPTOmycin 500 mg In 50 Sodium Chloride 0.9% 50 ml @ 100 mls/hr IVPB Q48H [facility] Rx#:[id number] KVO 230 220 140 Levofloxacin 250Mg-D5w 100 Pmx 250 mg In Dextrose/ Water 1 50ml.bag @ 50 mls /hr IVPB Q24H [facility] Rx#: [id number] Piperacillin-Tazobactam 3 100 100 .375 gm In Sodium Chloride 0.9% 100 ml @ 25 mls/hr IVPB Q8HR [facility] Rx# :[id number] Pressure lines 3 Intake, IV Titration 450.187 262.151 155.584 Amount Anidulafungin 100 mg In 260 Sodium Chloride 0.9% 100 ml @ 84 mls/hr IVPB DAILY [facility]SY Rx#:[id number] Norepinephrine 4 mg In 90.187 162.151 21.125 Sodium Chloride 0.9% 250 ml @ 0.03 MCG/KG/MIN 9. 851 mls/hr IV .Q24H [facility] Rx#:[id number] propofoL 1,000 mg In 100 Empty Bag 1 bag @ 15 MCG/ KG/MIN 7.757 mls/hr IV . [id number] [facility] Rx#:[id number] propofoL 1,000 mg In 100 134.459 Empty Bag 1 bag @ 35 MCG/ KG/MIN 19.677 mls/hr IV . Q5H5M M[facility]SY Rx#:[id number] Output: Drainage 660 800 Abdomen 500 Right 660 300 Urine 470 620 585 Other: Voiding Method Indwelling Catheter Indwelling Catheter Indwelling Catheter ABP, PAP, CO, CI - Last Documented Arterial Blood Pressure 107/55 - Exam GENERAL DESCRIPTION: Middle-age male intubated on the vent RESPIRATORY SYSTEM: Unlabored breathing , decreased breath sounds at bases HEART: S1 S2 regular rate and rhythm , ABDOMEN: Soft , mild distention EXTREMITIES: Bilateral extremity wounds currently dressed no drainage - Labs CBC & Chem 7: 11/11/23 03:44 11/11/23 03:44 Labs: Abnormal Lab Results - Last 24 Hours (Table) 11/11/23 11/11/23 11/11/23 Range/Units 03:44 03:44 03:44 WBC 17.6 H (3.8-10.6) k/uL RBC 2.93 L (4.30-5.90) m/uL Hgb 7.6 L (13.0-17.5) gm/dL Hct 25.2 L (39.0-53.0) % MCHC 30.4 L (31.0-37.0) g/dL RDW 23.6 H (11.5-15.5) % Neutrophils # 16.1 H (1.3-7.7) k/uL Lymphocytes # 0.6 L (1.0-4.8) k/uL ABG pO2 (83-108) mmHg ABG O2 Saturation (94-97) % Carbon Dioxide 21 L (22-30) mmol/L BUN 54 H (9-20) mg/dL Creatinine 3.32 H (0.66-1.25) mg/dL Calcium 7.5 L (8.4-10.2) mg/dL Phosphorus 6.2 H (2.5-4.5) mg/dL AST 73 H (17-59) U/L Alkaline Phosphatase 154 H (38-126) U/L Total Protein 5.0 L (6.3-8.2) g/dL Albumin 1.9 L (3.5-5.0) g/dL 11/11/23 Range/Units 05:29 WBC (3.8-10.6) k/uL RBC (4.30-5.90) m/uL Hgb (13.0-17.5) gm/dL Hct (39.0-53.0) % MCHC (31.0-37.0) g/dL RDW (11.5-15.5) % Neutrophils # (1.3-7.7) k/uL Lymphocytes # (1.0-4.8) k/uL ABG pO2 125 H (83-108) mmHg ABG O2 Saturation 99.2 H (94-97) % Carbon Dioxide (22-30) mmol/L BUN (9-20) mg/dL Creatinine (0.66-1.25) mg/dL Calcium (8.4-10.2) mg/dL Phosphorus (2.5-4.5) mg/dL AST (17-59) U/L Alkaline Phosphatase (38-126) U/L Total Protein (6.3-8.2) g/dL Albumin (3.5-5.0) g/dL Microbiology - Last 24 Hours (Table) 11/05/23 16:40 Blood Culture - Final Blood Assessment and Plan (1) Bilateral lower leg cellulitis Current Visit: Yes Status: Acute Code(s): L03.116 - CELLULITIS OF LEFT LOWER LIMB; L03.115 - CELLULITIS OF RIGHT LOWER LIMB SNOMED Code(s): 122739867 (2) Open wound of both lower extremities Current Visit: Yes Status: Acute Code(s): S81.801A - UNSPECIFIED OPEN WOUND, RIGHT LOWER LEG, INITIAL ENCOUNTER; S81.802A - UNSPECIFIED OPEN WOUND, LEFT LOWER LEG, INITIAL ENCOUNTER SNOMED Code(s): 75724448 (3) Sepsis Current Visit: Yes Status: Acute Code(s): A41.9 - SEPSIS, UNSPECIFIED ORGANISM SNOMED Code(s): 10280571 (4) Pneumonia Current Visit: Yes Status: Acute Code(s): J18.9 - PNEUMONIA, UNSPECIFIED ORGANISM SNOMED Code(s): 453976326 Plan: 1patient presented to hospital with sepsis in this patient who did have a fever tachycardia elevated white count source is likely bilateral lower extremity wound and cellulitis with more extensive wound to the left lower extremity in this patient who did have a history of PAD and has multiple vascular procedure last wound culture done from the right leg has been Pseudomonas and VRE that was done on 10/03/2023, culture done this admission are growing Pseudomonas aeruginosa Enterococcus faecalis that is not VRE and MRSA 2patient is status post debridement and deep culture completed on 11/03/2023 which did grow multiple pathogen including Pseudomonas Morganella Enterococcus faecalis and MRSA 3patient did have a perforated peptic ulcer status post laparotomy and modified Jasvir patch 4-patient sputum is growing stenotrophomonas concerning for gram-negative pneumonia 5-patient is broadly covered with daptomycin, Zosyn Levaquin and Eraxis and the patient white count is trending down we will monitor closely Sister at the bedside questions answered Dictation was produced using [employer] dictation software. please excuse any grammatical, word or spelling errors. Time with Patient: Less than 30
--- NOTE | 2023-11-11 15:36 | P.PN ---
Subjective Progress Note Date: 11/11/23 CHIEF COMPLAINT: Perforated gastric ulcer HISTORY OF PRESENT ILLNESS: The patient is a 63-year-old male in intensive care unit status post repair of perforated gastric ulcer. Patient is pending extubation however still somnolent. Per discussion with nursing, decreased output from SANDY drain from 600 cc in 24 hours down to 200 cc. He has his abdominal wound VAC. He has moderate general anasarca are improving. ROS: No reports of nausea and vomiting. No fevers or chills. No new chest pain. No productive sputum PHYSICAL EXAM: VITAL SIGNS: Reviewed CONSTITUTIONAL: Well developed and in no acute distress. EYES: Conjuctivae without sclera icterus. Extraocular movements grossly intact. HEAD, EARS, NOSE, THROAT: Dry oral mucosa. Head is atraumatic, normocephalic. Hears conversational speech. No nasal drainage. RESPIRATORY: Intubated. CARDIOVASCULAR: Palpable 2+ radial pulses. Tachycardic ABDOMEN: Abdominal wound VAC present. SANDY serous. MUSCULOSKELETAL: No gross deformity of the lower extremities noted. No clubbing. No cyanosis. SKIN: Good skin turgor. Well perfused. NEUROLOGIC: Cranial nerves II through XII grossly intact. No focal or lateralizing signs. PSYCH: Awake with difficulty following commands. CLINICAL LABS: Reviewed. WBC elevated 17,000, leukocytosis. Hemoglobin 7.6, anemia. Creatinine elevated 3.32, 0.47 on admission ASSESSMENT: 1. Perforated gastric ulcer 2. Alcoholism with alcoholic liver/cirrhosis and ascites 3. Anemia 4. Acute renal failure due to acute tubular necrosis, stage III PLAN: 1. Continue abdominal wound VAC 2. Agree with extubation once hemodynamically stable 3. N.p.o. status 4. Orogastric tube feeds advised Objective - Vital Signs Vital signs: Vital Signs Temp 97.3 F L 11/11/23 12:00 Pulse 117 H 11/11/23 13:00 Resp 16 11/11/23 13:00 BP 103/63 11/06/23 03:00 Pulse Ox 100 11/11/23 13:00 FiO2 35 11/11/23 12:31 Intake & Output 11/10/23 11/11/23 11/11/23 18:59 06:59 18:59 Intake Total 783.187 482.151 545.584 Output Total 5042 018 0085 Balance -346.813 -137.849 -839.416 Weight 93.7 kg 94.3 kg Intake: IV 333 220 390 DAPTOmycin 500 mg In 50 Sodium Chloride 0.9% 50 ml @ 100 mls/hr IVPB Q48H [facility] Rx#:[id number] KVO 230 220 140 Levofloxacin 250Mg-D5w 100 Pmx 250 mg In Dextrose/ Water 1 50ml.bag @ 50 mls /hr IVPB Q24H [facility] Rx#: [id number] Piperacillin-Tazobactam 3 100 100 .375 gm In Sodium Chloride 0.9% 100 ml @ 25 mls/hr IVPB Q8HR [facility] Rx# :[id number] Pressure lines 3 Intake, IV Titration 450.187 262.151 155.584 Amount Anidulafungin 100 mg In 260 Sodium Chloride 0.9% 100 ml @ 84 mls/hr IVPB DAILY [facility] Rx#:[id number] Norepinephrine 4 mg In 90.187 162.151 21.125 Sodium Chloride 0.9% 250 ml @ 0.03 MCG/KG/MIN 9. 851 mls/hr IV .Q24H [facility] Rx#:[id number] propofoL 1,000 mg In 100 Empty Bag 1 bag @ 15 MCG/ KG/MIN 7.757 mls/hr IV . [id number] [facility] Rx#:[id number] propofoL 1,000 mg In 100 134.459 Empty Bag 1 bag @ 35 MCG/ KG/MIN 19.677 mls/hr IV . Q5H5M [facility] Rx#:[id number] Output: Drainage 660 800 Abdomen 500 Right 660 300 Urine 470 620 585 Other: Voiding Method Indwelling Catheter Indwelling Catheter Indwelling Catheter ABP, PAP, CO, CI - Last Documented Arterial Blood Pressure 107/55 - Labs CBC & Chem 7: 11/11/23 03:44 11/11/23 03:44 Labs: Abnormal Lab Results - Last 24 Hours (Table) 11/11/23 11/11/23 11/11/23 Range/Units 03:44 03:44 03:44 WBC 17.6 H (3.8-10.6) k/uL RBC 2.93 L (4.30-5.90) m/uL Hgb 7.6 L (13.0-17.5) gm/dL Hct 25.2 L (39.0-53.0) % MCHC 30.4 L (31.0-37.0) g/dL RDW 23.6 H (11.5-15.5) % Neutrophils # 16.1 H (1.3-7.7) k/uL Lymphocytes # 0.6 L (1.0-4.8) k/uL ABG pO2 (83-108) mmHg ABG O2 Saturation (94-97) % Carbon Dioxide 21 L (22-30) mmol/L BUN 54 H (9-20) mg/dL Creatinine 3.32 H (0.66-1.25) mg/dL Calcium 7.5 L (8.4-10.2) mg/dL Phosphorus 6.2 H (2.5-4.5) mg/dL AST 73 H (17-59) U/L Alkaline Phosphatase 154 H (38-126) U/L Total Protein 5.0 L (6.3-8.2) g/dL Albumin 1.9 L (3.5-5.0) g/dL 11/11/23 Range/Units 05:29 WBC (3.8-10.6) k/uL RBC (4.30-5.90) m/uL Hgb (13.0-17.5) gm/dL Hct (39.0-53.0) % MCHC (31.0-37.0) g/dL RDW (11.5-15.5) % Neutrophils # (1.3-7.7) k/uL Lymphocytes # (1.0-4.8) k/uL ABG pO2 125 H (83-108) mmHg ABG O2 Saturation 99.2 H (94-97) % Carbon Dioxide (22-30) mmol/L BUN (9-20) mg/dL Creatinine (0.66-1.25) mg/dL Calcium (8.4-10.2) mg/dL Phosphorus (2.5-4.5) mg/dL AST (17-59) U/L Alkaline Phosphatase (38-126) U/L Total Protein (6.3-8.2) g/dL Albumin (3.5-5.0) g/dL Microbiology - Last 24 Hours (Table) 11/05/23 16:40 Blood Culture - Final Blood
[2023-11-11 17:57] LABS: Glucose,Whole Blood 96 mg/dL (70-110)
[2023-11-12 05:19] LABS: African American GFR (CKD) 22 (>60 ml/min/1.73 sqM); Anion Gap 10 mmol/L; Blood Urea Nitrogen 54 mg/dL (9-20); Calcium 7.9 mg/dL (8.4-10.2); Carbon Dioxide 22 mmol/L (22-30); Chloride 108 mmol/L (98-107); Glucose 101 mg/dL (74-99); Magnesium 1.9 mg/dL (1.6-2.3); Non-African American GFR(CKD) 19 (>60 ml/min/1.73 sqM); Phosphorus 5.6 mg/dL (2.5-4.5); Potassium 3.9 mmol/L (3.5-5.1); Sodium 140 mmol/L (137-145)
[2023-11-12 06:00] LABS: ABG Base Excess -1.4 mmol/L; ABG HCO3 24 mmol/L (21-25); ABG Oxygen Saturation 99.4 % (94-97); ABG PCO2 41 mmHg (35-45); ABG PH 7.37 (7.35-7.45); ABG PO2 136 mmHg (83-108); ABG TCO2 25 mmol/L (19-24); Allen Test Performed? Yes
[2023-11-12 06:04] LABS: Anisocytosis Moderate; Basophils % (A) 0 %; Eosinophils # (A) 0.1 k/uL (0-0.7); Eosinophils % (A) 1 %; HCT 23.6 % (39.0-53.0); HGB 7.1 gm/dL (13.0-17.5); Hypochromasia Marked; Lymphocytes # (A) 0.5 k/uL (1.0-4.8); Lymphocytes % (A) 3 %; MCH 26.2 pg (25.0-35.0); MCHC 30.2 g/dL (31.0-37.0); MCV 86.7 fL (80.0-100.0); Mean Platelet Volume 9.7; Microcytosis Slight; Monocytes # (A) 0.6 k/uL (0-1.0); Monocytes % (A) 4 %; Neutrophils # (A) 14.3 k/uL (1.3-7.7); Neutrophils % (A) 91 %; Platelet Count 314 k/uL (150-450); RBC 2.73 m/uL (4.30-5.90); RDW 23.8 % (11.5-15.5); WBC 15.7 k/uL (3.8-10.6)
--- NOTE | 2023-11-12 06:42 | XR ---
EXAMINATION TYPE: XR chest 1V portable DATE OF EXAM: 11/12/2023 COMPARISON: 11/11/2023 HISTORY: ET tube TECHNIQUE: Single frontal view of the chest is obtained. FINDINGS: There is an ET tube approximately 2.3 cm above the prince. There is an NG tube in stomach. There is a right jugular central venous catheter in SVC/RA junction. There is no change in the retrocardiac opacity. The right lung is essentially clear. There is no pneu mothorax. The osseous structures are intact IMPRESSION: 1. ET tube approximately 2.3 cm above the prince. 2. No change in the retrocardiac opacity likely a combination of pleural effusion and airspace consol idation or atelectasis.
[2023-11-12 10:09] LABS: ABG Base Excess -1.3 mmol/L; ABG HCO3 24 mmol/L (21-25); ABG Oxygen Saturation 99.7 % (94-97); ABG PCO2 39 mmHg (35-45); ABG PH 7.39 (7.35-7.45); ABG PO2 153 mmHg (83-108); ABG TCO2 25 mmol/L (19-24); Allen Test Performed? Yes
--- NOTE | 2023-11-12 11:14 | P.PN ---
Subjective Progress Note Date: 11/12/23 Patient is a 63-year-old white male with past medical history significant for chronic bilateral lower extremity wounds with multiple previous debridements, peripheral vascular disease, recent femoropopliteal artery bypass, AAA, coronary artery disease, hyperlipidemia, hypertension, and tobacco dependence. He is currently intubated to the mechanical ventilator in the intensive care unit, and unable to provide any information for HPI. Apparently, he presented to the emergency department on 10/29/2023 with his lower extremity wounds and suspected cellulitis/sepsis. He follows with vascular surgery. On 11/03/2023 he did undergo debridement of his bilateral lower extremity wounds. Wound cultures p ositive for polymicrobial organisms including Pseudomonas aeruginosa, MRSA, Enterococcus faecalis. Antibiotics are being directed by infectious disease. Yesterday, on 11/05/2023 the patient was having some abdominal pain and issues with hypotension. A rapid response was called. CT of the abdomen and pelvis without contrast demonstrated a pneumoperitoneum. Patient was then taken to the operating room yesterday evening for an exploratory laparotomy, was found to have a perforated gastric ulcer; subsequently underwent repair with a modified Jasvir patch. Patient was transferred back to the intensive care unit in critical condition. Currently, patient is being evaluated in the intensive care unit intubated to the mechanical ventilator. Most recent ABGs consistent with profound metabolic acidosis. PaO2 327, pCO2 45, pH of 7.12. He was given 3 A of sodium bicarbonate. Current ventilator settings include assist-control, respiratory rate 16, tidal volume 450, FiO2 50%, and PEEP of 5. Chest x-ray, showing the tip of the endotracheal tube in a proximal position, approximately 9 cm above the prince. Nasogastric tube within the stomach. There is a left- sided pleural effusion. Dr. Crystal previously had the endotracheal tube advanced 3 cm. Patient is currently sedated on propofol which is infusing at 25 mcg/kg/min. He is synchronous with mechanical ventilator. Remains hypotensive, currently requiring vasopressors in the form of norepinephrine which is infusing at 0.1 mcg/kg/min. Postoperatively, the patient was fluid resuscitated with a total of 2 L crystalloid fluid. Lactated Ringer's also infusing at 125 mL/h. CVP is reading 8 mmHg. Patient has remained anuric. Heart rhythm appears atrial fibrillation with controlled ventricular response ranging from 80 to 90 bpm. Patient does have history of A-fib, not on any anticoagulation currently. Patient's abdominal incision has a wound VAC, and there is a compressed SANDY drain that is drained a total of 510 mL of serosanguineous output since surgery. Patient is currently covered on a combination of Zosyn, daptomycin, and Eraxis, which are being directed by infectious disease. Currently, hypothermic with external warming blanket on. Postoperative CBC: WBC count 31.8, hemoglobin 9.4, hematocrit 32.7, platelets 647. Postoperative BMP: Sodium 135, potassium 4.2, chloride 112, serum bicarb 12, BUN 53, creatinine 2.46, glucose 120. Overall, prognosis is guarded. On 11/07/2023, the patient is being seen for a follow-up. The patient remains intubated on the mechanical ventilator. This morning, the patient is sedated on propofol which is running at 40 mcg/kg/min. The patient remains intubated on mechanical ventilator on assist-control mode rate of 16, tidal volume of 450, FiO2 of 35% with a PEEP of 5. Chest x-ray shows consolidation of the lung bases more so on the left. ET tube is in good location. The patient also has an NG tube in place. The blood gas showed a pH of 7.42 with a pCO2 of 31 and pO2 of 87. No significant extra secretion the patient is currently intubated by #8 orotracheal tube. Hemodynamically, the patient remains on low-dose norepinephrine which is running at 0.05 mcg/kg/min. The patient is on a bicarb infusion running at 125 cc an hour. Output from the SANDY drain is quite extensive approximately 500 cc of serous material over the past 8 hours. The patient remains on the same antibiotic coverage and this includes Zosyn, daptomycin and Eraxis. On today's evaluation, the patient's white cell count is at 21 with a hemoglobin 7.1 and a platelet count of 477. BUN is 53 with a creatinine of 2.8 and a sodium levels at 137. The potassium levels of 3.3. Serum bicarb is at 20. Cultures from the wound is positive for Pseudomonas aeruginosa, Morganella and Enterococcus faecalis. Sputum sample is still negative for the time being. The patient is afebrile. The wounds in the lower extremity are appropriately dressed. Noted the patient has undergone multiple previous debridements of the lower extremity wounds. He is known to have severe PAD vascular disease. He is status post femoropopliteal bypass surgery. He is also known to have abdominal aortic aneurysm status post endovascular grafting along with coronary artery disease and hypertension hyperlipidemia. The patient is also status post gastric perforation with pneumoperitoneum requiring immediate surgical interventionAnd the patient has undergone exploratory laparotomy and repair of the perforated gastric ulcer with a modified Jasvir patch technique. Surgery was done on 11/05/2023 and the patient is currently postop day #2. He remains n.p.o. for now. On today's evaluation of 11/08/2023, the patient is being seen for a follow-up. Noted this morning, the patient remains sedated on propofol which is running at 40 mcg/kg/min. The patient was given a sedation holiday which she essentially failed. He did not recover his mentation and the patient was essentially thrashing and becoming asynchronous with mechanical ventilator and the trial was aborted. As such, the patient was kept on mechanical ventilator and earlier this morning the patient was on assist-control mode at rate of 16, tidal volume of 450, FiO2 of 35% with a PEEP of 5. Chest x-ray remains unchanged and the patient has consolidation lower lungs bilaterally and possibly some underlying pleural effusions. Blood gas showed a pH of 7.47 with a pCO2 of 33 and pO2 of 145. The patient remains in atrial fibrillation. The patient remains on pressors and norepinephrine is running at 0.03 mcg/kg/min. The patient remains NPO. Output from the NG tube is minimal at this point in time. Output from the SANDY drain was noted and it is in the order of 1.2 L of serous material over the past 24 hours. The surgical wound site is dry clean and intact. Wound VAC is also in place. The overall fluid balance over the past 24 hours is positive for 0.4 L. This sputum sample is positive for stenotrophomonas and Doreen. The current antibiotic coverage includes a combination of Eraxis, daptomycin and Zosyn. Blood work from today shows a WBC count of 12.8, hemoglobin of 7 and a platelet count of 316. BUN is 52 with a creatinine of 3.07 and a sodium levels at 137 and potassium level is at 3.9. Calcium level is low at 6.4. Phosphorus level is at 5.1. Triglycerides at 174. Patient is afebrile. The patient is currently postop day #3 following a repair of a perforated gastric ulcer with a modified Jasvir patch technique. Surgery was done on 11/05/2023. 11/09/2023, the patient is being seen for a follow-up. The patient remains intubated on the mechanical ventilator. Several attempt to wean the patient off sedation. That the patient was encephalopathic and thrashing and was not following any commands. Based on that, the patient was kept on propofol and this morning the patient is on propofol running at 40 mcg/kg/min. Possibility of encephalopathy with rates metabolic encephalopathy, drug encephalopathy, ur emic/hepatic encephalopathy is to be considered. Possibility of an acute CVA in the setting of chronic atrial fibrillation cannot be completely ruled out. The patient is currently on a mechanical ventilator assist-control mode with a rate of 16, tidal volume of 450, FiO2 35% with a PEEP of 5. Blood gas showed a pH of 7.42 pCO2 pO2 of 139. The sputum sample was positive for stenotrophomonas and Levaquin was also added. The patient has no major respiratory secretions. Chest x-ray shows bilateral lower lobe consolidation/effusion. Hemodynamically, the patient is on no pressors. The SANDY drain is still draining approximately a liter of serosanguineous material on a daily basis and the wound VAC is still in place and the patient was started on TPN for nutritional support. Antibiotic coverage includes a combination of Zosyn, Eraxis and vancomycin. Patient is also suffering from an acute kidney injury. Creatinine is on the rise and this morning creatinine is at 3.27 with a BUN of 54. Sodium levels of 137, potassium of 4.2, LFTs are normal, albumin is at 1.9 with a total protein of 4.7. WBC count is at 15.4 with a hemoglobin of 7.2 and a platelet count of 315. Cardiac rhythm is atrial fibrillation with a controlled rate. 11/10/2023, the patient is being seen for a follow-up. Remains intubated on the mechanical ventilator. Based on underlying encephalopathy/delirium, the patient was given a CAT scan of the brain that showed no acute abnormalities. Ammonia level was also not elevated. Another sedation holiday will be given. The patient was taken off sedation this morning and did not return to being monitored. Meanwhile, the patient remains on mechanical ventilator. The patient on assist-control mode rate of 16, tidal volume of 450, FiO2 35% and PEEP of 5. Antibiotic coverage remains unchanged. Follow-up chest x-ray from today shows some limited improvement in the lower lobe consolidation bilaterally. The patient is on Levaquin regarding stenotrophomonas in the sputum. Rest of the antibiotic coverage is unchanged compared to yesterday as the patient remains on a combination of Zosyn, Eraxis and daptomycin. The patient is still producing serosanguineous fluid from the SANDY drain in order of 1 L over the past 24 hours. He is on low-dose norepinephrine running at 0.02 mcg/kg/min. In terms of blood work, the ABGs from today shows a pH of 7.41 with a pCO2 of 36 and a pO2 of 134. The white cell count is 18 with a hemoglobin of 7.9 and a platelet count of 293. BUN is 54 with a creatinine of 3.2 and a sodium levels at 136 and a potassium level is at 4.2. Fluid balance over the past 24 hours has been -1.7 L. The patient is producing adequate amount of urine output at this point in time. The patient is also on TPN for nutritional support. NG tube is in place and there are no signs of any active bleeding. Blood sugars at 94. On 11/11/2023, the patient is being seen for a follow-up. Remains intubated on the mechanical ventilator. Noted the patient was given a sedation holiday that lasted for several hours. During that time, the patient remained calm with occasional agitation. No significant recovery in the level of alertness and the patient remained encephalopathic. Ultimately, he became apneic and the sedation holiday was discontinued. Noted while having the sedation holiday yesterday, the patient was on a pressure support mode of mechanical ventilation. This morning, the patient is back on propofol which is running at 35 mcg/kg/min. He is on assist-control mode rate of 16, tidal volume of 500, FiO2 of 35% with a PEEP of 5. Blood gas showed a pH of 7.4 with a pCO2 of 37 and a pO2 of 125. Chest x-ray findings are essentially stable. There is interval clearing of the lower lobe pulmonary infiltrates and there is probably a left-sided pleural effusion. Orotracheal tubes are in good location. The white cell count of 17.6 with a hemoglobin of 7.6 and a platelet count of 315. Rest of the electrolytes show a BUN of 54 with a creatinine of 3.3 and the creatinine is stable compared to yesterday. BUN is 54. Serum bicarbonate 21 with a sodium levels of 137. The patient is afebrile. The patient is minimal amount of norepinephrine which is running at 0.01 mcg/kg/min. The patient receiving TPN for nutritional support. The overall fluid balance is 0 over the past 24 hours. No other significant events otherwise for now. SANDY drain output is more than 500 cc over the past 24 hours. Surgical wound site over the abdomen is dry clean and intact. NG output is minimal at this point in time. 11/12/2023, the patient is being seen for a follow-up. The patient has been off sedation since yesterday. The patient also tolerated a prolonged spontaneous breathing trial with a pressure support of 7 and a PEEP of 5 yesterday. Nevertheless, he was not extubated overnight and the patient was kept on mechanical ventilator and placed on assist-control. This morning, he remains off sedation. He is following some simple commands although his response is not distant. He remains on the mechanical ventilator assist-control mode with rate of 16, tidal volume of 450, FiO2 35% with a PEEP of 5. pH is at 7.37 with a pCO2 of 41 and a pO2 of 136. The patient is on minimal amount of pressors with norepinephrine running at 0.01 mcg/kg/min. Chest x-ray shows limited infiltration of the lung base bilaterally. TPN is running at a rate of 32. Output from the NG is minimal. SANDY drain is produced less than 500 cc overnight. Output is greenish and clinical needs to be cultured. The white cell count of 15.7, hemoglobin is at 7.1 with a platelet count of 314. BUN is 54 with a creatinine of 3.2 and a sodium low at 140 with a potassium level of 3.9. Antibiotic coverage remains unchanged. The patient remains on Levaquin, Eraxis, Zosyn, daptomycin. Objective - Vital Signs Vital signs: Vital Signs Temp 98.1 F 11/12/23 08:00 Pulse 97 11/12/23 09:48 Resp 12 11/12/23 09:00 BP 103/63 11/06/23 03:00 Pulse Ox 100 11/12/23 09:00 FiO2 35 11/12/23 08:54 Intake & Output 11/11/23 11/12/23 11/12/23 18:59 06:59 18:59 Intake Total 355.940 0676.321 274.403 Output Total 2210 2305 795 Balance -1464.416 -1254.679 -520.597 Weight 95.3 kg Intake: IV 590 263 257 Anidulafungin 100 mg In 100 Sodium Chloride 0.9% 100 ml @ 84 mls/hr IVPB DAILY [facility] Rx#:[id number] DAPTOmycin 500 mg In 50 Sodium Chloride 0.9% 50 ml @ 100 mls/hr IVPB Q48H [facility] Rx#:[id number] KVO 240 180 45 Levofloxacin 250Mg-D5w 100 50 Pmx 250 mg In Dextrose/ Water 1 50ml.bag @ 50 mls /hr IVPB Q24H [facility] Rx#: [id number] Piperacillin-Tazobactam 3 200 100 .375 gm In Sodium Chloride 0.9% 100 ml @ 25 mls/hr IVPB Q8HR [facility] Rx# :[id number] Pressure lines 33 12 Intake, IV Titration 155.584 787.321 17.403 Amount Mvi, Adult No.4 with Vit 768 K 10 ml Trace (Conc-1Ml/ Dose) 1 ml Sodium Acetate 40 meq Potassium Chloride 40 meq Calcium Gluconate 1.5 gm Magnesium Sulfate gm 1 gm In Amino Acids 5 %/ Dextrose 20 % 1,000 ml @ 32 mls/hr IV .Q24H [facility] Rx #:[id number] Norepinephrine 4 mg In 21.125 19.321 17.403 Sodium Chloride 0.9% 250 ml @ 0.03 MCG/KG/MIN 9. 851 mls/hr IV .Q24H [facility] Rx#:[id number] propofoL 1,000 mg In 134.459 Empty Bag 1 bag @ 35 MCG/ KG/MIN 19.677 mls/hr IV . Q5H5M [facility] Rx#:[id number] Output: Gastric Drainage 230 50 Drainage 1060 1110 515 Abdomen 500 500 200 Right 560 610 315 Urine 920 1195 230 Other: Voiding Method Indwelling Catheter Indwelling Catheter Indwelling Catheter ABP, PAP, CO, CI - Last Documented Arterial Blood Pressure 101/54 - Exam GENERAL EXAM: Sedated and intubated to the mechanical ventilator, synchronous mechanical ventilator, facial grimacing with deep painful stimuli, withdraws to pain in all 4 extremities, the patient is currently off sedation HEAD: Normocephalic and atraumatic EYES: Normal reaction of pupils, equal size. NOSE: Clear with pink turbinates. THROAT: No erythema or exudates. NECK: No masses, no JVD. Right IJ central line catheter in place. CHEST: No chest wall deformity. LUNGS: Equal air entry with no crackles, wheeze, rhonchi or dullness. Intubated to mechanical ventilator, synchronous with current vent settings. Minimal endotracheal secretions. Peak pressures 28 CVS: S1 and S2 normal with no audible murmur, irregular rhythm. No extra heart sounds ABDOMEN: Midline abdominal incision with wound VAC, wound not approximated. SANDY drain compressed and draining serosanguineous output. Abdomen is soft, bowel sounds hypoactive, no appreciated organomegaly. The patient has a SANDY drain in place. Output is noted in the order of 500 cc over the past 24 hours. SPINE: No scoliosis or deformity SKIN: Bilateral lower extremities wrapped in postoperative dressing/Abhijeet Kerlix wrap CENTRAL NERVOUS SYSTEM: Off propofol, no focal deficits, withdraws to pain in all 4 extremities. EXTREMITIES: Bilateral lower extremities wrapped in Kerlix, distal pulses posterior tibial found with Doppler. Brachial arterial line in place with good arterial waveform. Bilateral radial pulses weak but palpable, capillary refill greater than 3 seconds. - Labs CBC & Chem 7: 11/12/23 04:47 11/12/23 04:47 Labs: Abnormal Lab Results - Last 24 Hours (Table) 11/12/23 11/12/23 11/12/23 Range/Units 04:47 04:47 05:40 WBC 15.7 H (3.8-10.6) k/uL RBC 2.73 L (4.30-5.90) m/uL Hgb 7.1 L (13.0-17.5) gm/dL Hct 23.6 L (39.0-53.0) % MCHC 30.2 L (31.0-37.0) g/dL RDW 23.8 H (11.5-15.5) % Neutrophils # 14.3 H (1.3-7.7) k/uL Lymphocytes # 0.5 L (1.0-4.8) k/uL ABG pO2 136 H (83-108) mmHg ABG Total CO2 25 H (19-24) mmol/L ABG O2 Saturation 99.4 H (94-97) % Chloride 108 H (98-107) mmol/L BUN 54 H (9-20) mg/dL Creatinine 3.25 H (0.66-1.25) mg/dL Glucose 101 H (74-99) mg/dL Calcium 7.9 L (8.4-10.2) mg/dL Phosphorus 5.6 H (2.5-4.5) mg/dL 11/12/23 Range/Units 10:02 WBC (3.8-10.6) k/uL RBC (4.30-5.90) m/uL Hgb (13.0-17.5) gm/dL Hct (39.0-53.0) % MCHC (31.0-37.0) g/dL RDW (11.5-15.5) % Neutrophils # (1.3-7.7) k/uL Lymphocytes # (1.0-4.8) k/uL ABG pO2 153 H (83-108) mmHg ABG Total CO2 25 H (19-24) mmol/L ABG O2 Saturation 99.7 H (94-97) % Chloride (98-107) mmol/L BUN (9-20) mg/dL Creatinine (0.66-1.25) mg/dL Glucose (74-99) mg/dL Calcium (8.4-10.2) mg/dL Phosphorus (2.5-4.5) mg/dL Assessment and Plan Plan: Perforated gastric ulcer and pneumoperitoneum, status post exploratory laparotomy with gastric ulcer repair with modified Jasvir patch on 11/05/2023, the patient is postop day # 7. The patient remains n.p.o. and the patient was started on TPN for nutritional support. Acute hypoxic respiratory failure with bilateral lower lobe consolidation, consider possibility of pneumonia/effusion left worse than right. Furthermore, the sputum sample showed stenotrophomonas and Doreen. Consider the possibility of a hospital-acquired/ventilator acquired pneumonia with gram-negative infecti on. The patient is currently on Levaquin. Will avoid the use of Bactrim due to concerns of renal dysfunction. Overall respiratory status is unchanged. There is obvious improvement in the lower lobe consolidation on today's chest x-ray. Oxygenation is stable. Septic shock with hypotension and shock, currently requiring vasopressors in the form of norepinephrine. And the patient is on low-dose norepinephrine. Sepsis and septic shock Severe nonanion gap metabolic acidosis, treated with a bicarb infusion, improved encephalopathy/delirium, the patient has failed several daily sedation holiday over the past 3 days. CAT scan of the brain is negative. Bilateral lower extremity wounds/cellulitis, status-post debridement on 11/03/2023. Wounds positive for polymicrobial organisms including Pseudomonas aeruginosa, MRSA, Enterococcus faecalis. Antibiotics being directed by infectious disease specialist Peripheral vascular disease, with recent history of femoral popliteal artery bypass on 06/06/2023, subsequently, developing wound infection and dehiscence, undergoing multiple excisional debridements since then. Atrial fibrillation with controlled ventricular response Normocytic, normochromic anemia Acute leukocytosis Acute kidney injury secondary to hypotension and ATN, nonoliguric and the patient has a positive urine output. The patient remains nonoliguric, the creatinine remained stable for now. History of hypertension History of hyperlipidemia History of coronary artery disease with previous stent placement History of AAA with previous endovascular repair History of alcoholism Chronic ongoing tobacco dependence Plan Continue vent support, Keep the patient off sedation Do another spontaneous breathing trial with a pressure support of 7 and a PEEP of 5 and obtain about there is a 40 minutes Possible extubation today Continue TPN for nutritional support and IV fluids are currently at KVO monitor mental status Pressors titrated according to the blood pressure Keep the patient on same antibiotic coverage to include a combination of daptomycin, Eraxis and Zosyn, and Levaquin to cover the stenotrophomonas. Ideally, I would like to use Bactrim. Nevertheless based on his underlying renal failure, I am going to cover this patient with Levaquin and monitor his progress. Moderate output from the SANDY drain. Monitor renal function May consider tracheostomy tube insertion if fails to extubate Condition is obviously critical and will continue to follow make further recommendations based on progress. This evaluation was done more than 30 minutes. Time with Patient: Greater than 30
[2023-11-12] MEDS: FUROSEMIDE 10 MG/ML 10 ML VIAL IV SCH (11:26)
--- NOTE | 2023-11-12 11:46 | P.PN ---
Subjective patient is seen for follow-up for acute kidney injury. Patient remains on the vent. FiO2 is at 35%. Maintained on TPN, currently at 32 mL an hour Urine output at 40-50 mL an hour. Serum creatinine at 3.25 today. Status post IV Lasix yesterday. Objective - Vital Signs Vital signs: Vital Signs Temp 98.1 F 11/12/23 08:00 Pulse 97 11/12/23 09:48 Resp 12 11/12/23 09:00 BP 103/63 11/06/23 03:00 Pulse Ox 100 11/12/23 09:00 FiO2 35 11/12/23 08:54 Intake & Output 11/11/23 11/12/23 11/12/23 18:59 06:59 18:59 Intake Total 181.694 7083.321 295.558 Output Total 2210 2305 870 Balance -1464.416 -1254.679 -574.442 Weight 95.3 kg Intake: IV 590 263 270 Anidulafungin 100 mg In 100 Sodium Chloride 0.9% 100 ml @ 84 mls/hr IVPB DAILY MISSY Rx#:[id number] DAPTOmycin 500 mg In 50 Sodium Chloride 0.9% 50 ml @ 100 mls/hr IVPB Q48H MISSY Rx#:[id number] KVO 240 180 55 Levofloxacin 250Mg-D5w 100 50 Pmx 250 mg In Dextrose/ Water 1 50ml.bag @ 50 mls /hr IVPB Q24H MISSY Rx#: [id number] Piperacillin-Tazobactam 3 200 100 .375 gm In Sodium Chloride 0.9% 100 ml @ 25 mls/hr IVPB Q8HR MISSY Rx# :[id number] Pressure lines 33 15 Intake, IV Titration 155.584 787.321 25.558 Amount Mvi, Adult No.4 with Vit 768 K 10 ml Trace (Conc-1Ml/ Dose) 1 ml Sodium Acetate 40 meq Potassium Chloride 40 meq Calcium Gluconate 1.5 gm Magnesium Sulfate gm 1 gm In Amino Acids 5 %/ Dextrose 20 % 1,000 ml @ 32 mls/hr IV .Q24H MISSY Rx #:[id number] Norepinephrine 4 mg In 21.125 19.321 25.558 Sodium Chloride 0.9% 250 ml @ 0.03 MCG/KG/MIN 9. 851 mls/hr IV .Q24H MISSY Rx#:[id number] propofoL 1,000 mg In 134.459 Empty Bag 1 bag @ 35 MCG/ KG/MIN 19.677 mls/hr IV . Q5H5M MISSY Rx#:[id number] Output: Gastric Drainage 230 50 Drainage 1060 1110 515 Abdomen 500 500 200 Right 560 610 315 Urine 920 1195 305 Other: Voiding Method Indwelling Catheter Indwelling Catheter Indwelling Catheter ABP, PAP, CO, CI - Last Documented Arterial Blood Pressure 101/54 - Exam Currently on the vent. FiO2 35%. NG tube in place Examination of the heart S1 and S2 Examination of the lungs bilateral breath sounds are heard Abdomen is dressed, drain noted. Bilateral lower extremities are have wounds which have had surgical debridement. - Labs CBC & Chem 7: 11/12/23 04:47 11/12/23 04:47 Labs: Abnormal Lab Results - Last 24 Hours (Table) 11/12/23 11/12/23 11/12/23 Range/Units 04:47 04:47 05:40 WBC 15.7 H (3.8-10.6) k/uL RBC 2.73 L (4.30-5.90) m/uL Hgb 7.1 L (13.0-17.5) gm/dL Hct 23.6 L (39.0-53.0) % MCHC 30.2 L (31.0-37.0) g/dL RDW 23.8 H (11.5-15.5) % Neutrophils # 14.3 H (1.3-7.7) k/uL Lymphocytes # 0.5 L (1.0-4.8) k/uL ABG pO2 136 H (83-108) mmHg ABG Total CO2 25 H (19-24) mmol/L ABG O2 Saturation 99.4 H (94-97) % Chloride 108 H (98-107) mmol/L BUN 54 H (9-20) mg/dL Creatinine 3.25 H (0.66-1.25) mg/dL Glucose 101 H (74-99) mg/dL Calcium 7.9 L (8.4-10.2) mg/dL Phosphorus 5.6 H (2.5-4.5) mg/dL 11/12/23 Range/Units 10:02 WBC (3.8-10.6) k/uL RBC (4.30-5.90) m/uL Hgb (13.0-17.5) gm/dL Hct (39.0-53.0) % MCHC (31.0-37.0) g/dL RDW (11.5-15.5) % Neutrophils # (1.3-7.7) k/uL Lymphocytes # (1.0-4.8) k/uL ABG pO2 153 H (83-108) mmHg ABG Total CO2 25 H (19-24) mmol/L ABG O2 Saturation 99.7 H (94-97) % Chloride (98-107) mmol/L BUN (9-20) mg/dL Creatinine (0.66-1.25) mg/dL Glucose (74-99) mg/dL Calcium (8.4-10.2) mg/dL Phosphorus (2.5-4.5) mg/dL Assessment and Plan Assessment: 1. Acute kidney injury, ATN, oliguric initially, currently nonoliguric secondary to hypotension and sepsis. UA shows trace protein and small blood. No evidence of obstruction on CT of the abdomen. 2. Nongap metabolic acidosis secondary to acute kidney injury 3. Sepsis with septic shock from perforated viscus and bilateral lower extremity wounds. 4. Bilateral lower extremity wounds with wound cultures growing MRSA, Pseudomonas and Enterococcus faecalis. Patient is being followed by ID. 5. Acute hypoxic respiratory failure maintained on the vent 6. Volume overload and significant third spacing 7. Hyperphosphatemia associated with acute kidney injury, add phosphate binders once oral intake is started Plan: Continue with daily dose of IV Lasix. We will continue to monitor closely for need for renal replacement therapy. Continue to avoid nephrotoxic agents.
[2023-11-12 12:09] LABS: Glucose,Whole Blood 117 mg/dL (70-110)
--- NOTE | 2023-11-12 12:56 | P.PN ---
Subjective Progress Note Date: 11/12/23 This is 63-year-old gentleman with past medical history significant for PAD, multiple vascular procedures including femoral-tibial bypass followed by wound development, dehiscence of his left lower extremity, status post recent excisional debridement of the left lower leg wound with skin substitute placeme nt, excisional debridement of the left great toe wound and excisional debridement of right lower leg wound x 2 on 10/03/[address] Inman, vascular surgery, presented to the ER with worsening bilateral lower extremity pain, edema, reports right lower extremity "split open" over the last week with serous drainage. His visiting nurse evaluated patient on Monday recommending ER. Denies any chest pain, palpitations or shortness of breath. Denies nausea vomiting or diarrhea. Denies abdominal pain. Denies fever or chills. Denies lightheadedness, dizziness or focal deficits. Wound and blood cultures obtained, initiated on vancomycin in the ER. Tmax 101, WBC 16.3, increased to 19.67, CRP 12.6 .hemoglobin 7.7, platelets 468. Sodium 129, potassium 3.3, bicarb 19, BUN 10, creatinine 0.7. Lactic acid 2.2, improved with IV fluid hydration, 1.1. Magnesium 1-repeat level ordered stat. 10/31/2023 Tmax 101. WBC decreased to 15.1. reports decreased appetite. Sodium decreased to 127, renal function stable. Potassium 3.9, magnesium 1.2 - supplements ordered. Positive pain of bilateral lower extremities. Evaluated by infectious disease, antibiotics adjusted to Zyvox and meropenem. Denies chest pain, palpitations or shortness of breath. 11/01/2023 wound cultures growing Pseudomonas and Enterococcus faecalis, vancomycin and penicillin sensitive, afebrile, WBC up to 20.06, antibiotics further adjusted to Zosyn and daptomycin. Renal function stable. IV fluids adjusted yesterday to D5.9 with sodium improved up to 130. 11/02/2023 maintained on IV antibiotics as per ID. Afebrile, WBC decreased to 17.3. Hemoglobin 9.1, platelets 523. Sodium 131 on IV fluids of D5.9. Potas sium 3.8, magnesium 1.8, creatinine 0.9. Pain controlled , denies chest pain, palpitations or shortness of breath, maintaining O2 sats in the high 90s on room air. Scheduled for debridement and deep cultures tomorrow with vascular surgery. 11/07/2023 remains vent dependent with FiO2 35%/5 of PEEP. Maintained on diprovan, Levophed and bicarb drips. Bicarb 20, BUN 53, creatinine 2.84. continues on daptomycin, Eraxis, Zosyn. WBC 21, afebrile. Receiving potassium supplementation for potassium 3.3. Hemoglobin 7.1, platelets 477. 11/08/2023 Vent dependent, FiO2 35%/+5 of PEEP. Unsuccessful weaning trial yesterday, not following commands. Scheduled for another weaning trial today. Bicarb 23, bicarb drip discontinued. Levophed resumed after being off for few hours during the night. Echo reported EF 55 to 60%. Telemetry atrial fibrillation with controlled ventricular rates, cardiology following. Staff reported earlier this morning right foot noted to be cooler, mottled, improved with rewrapping of Abhijeet wrap's -less tight. TPN ordered. 11/09/2023 weaning trials attempted yesterday, patient was not following commands , not opening eyes ,shaking his head [id number]. Vent dependent, FiO2 35%/+5 of PEEP. Repeat weaning trial scheduled for today. continues on Levophed. Telemetry atrial fibrillation with controlled ventricular rate. continues to have large output from SANDY drain. Afebrile, WBC increased to 15.4. Hemoglobin 7.2, platelet count 317. Bicarb 21, BUN 54, creatinine 3.27. Sputum culture reporting stenotrophomonas maltophilia, Doreen albicans. Maintained on Zosyn, Eraxis and vancomycin. 11/10/2023 Vent dependent FiO2 35%/+5 of PEEP. Maintained on Levophed. Telemetry atrial fibrillation, controlled ventricular rate. Failed weaning trial yesterday, reattempting today. Bicarb 21, BUN 54, creatinine 3.21. Afebrile, WBC increased to 18. Continues on daptomycin, Zosyn, Levaquin, Eraxis. 11/10. Patient seen and examined. Patient continues to be intubated. 11/11. Patient seen and examined. Blood work done this morning showed WBC 15.7, hemoglobin 7.1, platelet count 314, sodium 140, potassium 3.9, BUN 54, creatinine 3.25. Patient was extubated this morning, currently on nasal cannula. Answering questions REVIEW OF SYSTEMS: Denies chest pain Denies Shortness of breath. denies any nausea or vomiting PHYSICAL EXAMINATION: GENERAL: The patient is alert, HEENT: Pupils are round and equally reacting to light. EOMI. No scleral icterus. No conjunctival pallor. Normocephalic, atraumatic. No pharyngeal erythema. No thyromegaly. CARDIOVASCULAR: S1 and S2 present. No murmurs, rubs, or gallops. PULMONARY: Coarse breath sounds bilaterally, no wheezing or crackles. ABDOMEN: Abdominal incision, wound VAC in place, SANDY drain in place MUSCULOSKELETAL: No joint swelling or deformity. EXTREMITIES: Right lower extremity bandages seen NEUROLOGICAL: Moving all extremities SKIN: No rashes. Assessment and plan Sepsis secondary to infected bilateral lower extremity wounds, cellulitis, recent excisional debridement of left lower leg wound with skin substitute placement, excisional debridement of the left great toe wound and excisional debridement of the right lower leg wound x 2 on 10/03/[address] Inman , vascular surgery. Cultures currently growing Pseudomonas aeruginosa and Enterococcus faecalis and MRSA. Status post debridement with deep cultures 830 reporting Pseudomonas Morganelli, Enterococcus faecalis and MRSA Perforated peptic ulcer and pneumoperitoneum status post exploratory laparotomy with gastric ulcer repair, modified Jasvir patch on 11/05/2023 Acute hypoxic respiratory failure, mechanical ventilator dependent Possible hospital-acquired, ventilator acquired pneumonia ;sputum culture reporting stenotrophomonas maltophilia, Doreen albicans Septic shock, requiring vasopressors Acute kidney injury, ATN secondary to sepsis, hypotension Metabolic acidosis secondary to the above, currently on bicarb drip History of Pseudomonas and VRE on last wound culture of left leg 10/03/2023, Lactic acidosis secondary to the above History of Left lower extremity skin dehiscence and wound infection,MSSA, status post excisional debridement and wound VAC. Left great toe ischemia status post excisional debridement History of left femoral tibial bypass secondary to critical limb ischemia History of aortic aneurysm with endovascular repair; Chronic Paroximal atrial fibrillation CAD, history of stent placement Essential hypertension Hyperlipidemia Nicotine dependence Daily alcohol use Noncompliance with medication regimen, patient is high risk for readmission. Iron deficient anemia Hypokalemia Hypomagnesemia Hyponatremia Monitor vital signs Monitor CBC Monitor CMP Continue telemetry monitoring Continue oxygen supplementation Aggressive bronchopulmonary hygiene Continue breathing treatments Continue wound VAC Continue SANDY drain management per surgery Continue IV daptomycin, Eraxis, Zosyn, Levaquin Continue Levophed Continue TPN ID following Critical care following Surgery following Nephrology following Labs and medication were reviewed.. Continue same treatment. Continue with symptomatic treatment. Resume home medication. Monitor labs and vitals. DVT and GI prophylaxis. Further recommendations as per clinical course of the patient Dictation was produced using [employer] dictation software. please excuse any grammatical, word or spelling errors. Objective - Vital Signs Vital signs: Vital Signs Temp 98.1 F 11/12/23 08:00 Pulse 105 H 11/12/23 08:00 Resp 20 11/12/23 08:00 BP 103/63 11/06/23 03:00 Pulse Ox 100 11/12/23 08:00 FiO2 35 11/12/23 07:46 Intake & Output 11/11/23 11/12/23 11/12/23 18:59 06:59 18:59 Intake Total 626.873 0702.321 31 Output Total 2210 2305 550 Balance -1464.416 -1254.679 -519 Weight 95.3 kg Intake: IV 590 263 31 DAPTOmycin 500 mg In 50 Sodium Chloride 0.9% 50 ml @ 100 mls/hr IVPB Q48H M[facility]SY Rx#:[id number] KVO 240 180 25 Levofloxacin 250Mg-D5w 100 50 Pmx 250 mg In Dextrose/ Water 1 50ml.bag @ 50 mls /hr IVPB Q24H M[facility]SY Rx#: [id number] Piperacillin-Tazobactam 3 200 .375 gm In Sodium Chloride 0.9% 100 ml @ 25 mls/hr IVPB Q8HR M[facility]SY Rx# :[id number] Pressure lines 33 6 Intake, IV Titration 155.584 787.321 Amount Mvi, Adult No.4 with Vit 768 K 10 ml Trace (Conc-1Ml/ Dose) 1 ml Sodium Acetate 40 meq Potassium Chloride 40 meq Calcium Gluconate 1.5 gm Magnesium Sulfate gm 1 gm In Amino Acids 5 %/ Dextrose 20 % 1,000 ml @ 32 mls/hr IV .Q24H MISSY Rx #:[id number] Norepinephrine 4 mg In 21.125 19.321 Sodium Chloride 0.9% 250 ml @ 0.03 MCG/KG/MIN 9. 851 mls/hr IV .Q24H MISSY Rx#:[id number] propofoL 1,000 mg In 134.459 Empty Bag 1 bag @ 35 MCG/ KG/MIN 19.677 mls/hr IV . Q5H5M MISSY Rx#:[id number] Output: Gastric Drainage 230 50 Drainage 1060 1110 460 Abdomen 500 500 200 Right 560 610 260 Urine 920 1195 40 Other: Voiding Method Indwelling Catheter Indwelling Catheter Indwelling Catheter ABP, PAP, CO, CI - Last Documented Arterial Blood Pressure 106/62 - Labs CBC & Chem 7: 11/12/23 04:47 11/12/23 04:47 Labs: Abnormal Lab Results - Last 24 Hours (Table) 11/12/23 11/12/23 11/12/23 Range/Units 04:47 04:47 05:40 WBC 15.7 H (3.8-10.6) k/uL RBC 2.73 L (4.30-5.90) m/uL Hgb 7.1 L (13.0-17.5) gm/dL Hct 23.6 L (39.0-53.0) % MCHC 30.2 L (31.0-37.0) g/dL RDW 23.8 H (11.5-15.5) % Neutrophils # 14.3 H (1.3-7.7) k/uL Lymphocytes # 0.5 L (1.0-4.8) k/uL ABG pO2 136 H (83-108) mmHg ABG Total CO2 25 H (19-24) mmol/L ABG O2 Saturation 99.4 H (94-97) % Chloride 108 H (98-107) mmol/L BUN 54 H (9-20) mg/dL Creatinine 3.25 H (0.66-1.25) mg/dL Glucose 101 H (74-99) mg/dL Calcium 7.9 L (8.4-10.2) mg/dL Phosphorus 5.6 H (2.5-4.5) mg/dL
--- NOTE | 2023-11-12 15:06 | P.PN ---
Subjective Progress Note Date: 11/12/23 Principal diagnosis: Reason for follow-up is bilateral lower extremity infected wounds and perforated peptic ulcer Patient is a 63-year-old male with a past medical history significant for hypertension hyperlipidemia coronary artery disease, PAD multiple vascular procedures including left femoral-tibial bypass and now has been dealing with the wound to the left lower extremity as well as wound to the right leg being managed in the outpatient setting by vascular surgery Center the hospital by the home care nurse concerning for worsening infection. Patient last wound culture positive for VRE and Pseudomonas. Patient is status post Sharp excisional debridement bilateral lower extremities along with cultures of the purulent material completed on 11/03/2023.Patient was taken to the OR 11/05/2023 found to have perforated gastric ulcer status post exploratory laparotomy repair of the perforated ulcer with modified Jasvir patch. On today's evaluation that is 11/12/2023, the patient has been extubated this morning he is currently breathing comfortably on 4 L current oxygen is afebrile he is slightly sleepy not a very good historian no vomiting diarrhea or any ot her change reported by the nursing staff. Patient white count is 15.7, creatinine 3.25 Objective - Vital Signs Vital signs: Vital Signs Temp 98.0 F 11/12/23 12:00 Pulse 107 H 11/12/23 14:00 Resp 12 11/12/23 14:00 BP 103/63 11/06/23 03:00 Pulse Ox 100 11/12/23 14:00 FiO2 35 11/12/23 08:54 Intake & Output 11/11/23 11/12/23 11/12/23 18:59 06:59 18:59 Intake Total 809.249 9979.321 334.558 Output Total 2210 2305 1690 Balance -1464.416 -5894.679 -1355.442 Weight 95.3 kg Intake: IV 590 263 309 Anidulafungin 100 mg In 100 Sodium Chloride 0.9% 100 ml @ 84 mls/hr IVPB DAILY MISSY Rx#:[id number] DAPTOmycin 500 mg In 50 Sodium Chloride 0.9% 50 ml @ 100 mls/hr IVPB Q48H MISSY Rx#:[id number] KVO 240 180 85 Levofloxacin 250Mg-D5w 100 50 Pmx 250 mg In Dextrose/ Water 1 50ml.bag @ 50 mls /hr IVPB Q24H MISSY Rx#: [id number] Piperacillin-Tazobactam 3 200 100 .375 gm In Sodium Chloride 0.9% 100 ml @ 25 mls/hr IVPB Q8HR MISSY Rx# :[id number] Pressure lines 33 24 Intake, IV Titration 155.584 787.321 25.558 Amount Mvi, Adult No.4 with Vit 768 K 10 ml Trace (Conc-1Ml/ Dose) 1 ml Sodium Acetate 40 meq Potassium Chloride 40 meq Calcium Gluconate 1.5 gm Magnesium Sulfate gm 1 gm In Amino Acids 5 %/ Dextrose 20 % 1,000 ml @ 32 mls/hr IV .Q24H MISSY Rx #:[id number] Norepinephrine 4 mg In 21.125 19.321 25.558 Sodium Chloride 0.9% 250 ml @ 0.03 MCG/KG/MIN 9. 851 mls/hr IV .Q24H MISSY Rx#:[id number] propofoL 1,000 mg In 134.459 Empty Bag 1 bag @ 35 MCG/ KG/MIN 19.677 mls/hr IV . Q5H5M MISSY Rx#:[id number] Output: Gastric Drainage 230 50 Drainage 1060 1110 680 Abdomen 500 500 200 Right 560 610 480 Urine 920 1195 960 Other: Voiding Method Indwelling Catheter Indwelling Catheter Indwelling Catheter ABP, PAP, CO, CI - Last Documented Arterial Blood Pressure 95/57 - Exam GENERAL DESCRIPTION: Middle-age male lying in bed in no distress RESPIRATORY SYSTEM: Unlabored breathing , decreased breath sounds at bases HEART: S1 S2 regular rate and rhythm , ABDOMEN: Soft , mild distention EXTREMITIES: Right lower extremity did have necrotic changes left leg wound is clean - Labs CBC & Chem 7: 11/12/23 04:47 11/12/23 04:47 Labs: Abnormal Lab Results - Last 24 Hours (Table) 11/12/23 11/12/23 11/12/23 Range/Units 04:47 04:47 05:40 WBC 15.7 H (3.8-10.6) k/uL RBC 2.73 L (4.30-5.90) m/uL Hgb 7.1 L (13.0-17.5) gm/dL Hct 23.6 L (39.0-53.0) % MCHC 30.2 L (31.0-37.0) g/dL RDW 23.8 H (11.5-15.5) % Neutrophils # 14.3 H (1.3-7.7) k/uL Lymphocytes # 0.5 L (1.0-4.8) k/uL ABG pO2 136 H (83-108) mmHg ABG Total CO2 25 H (19-24) mmol/L ABG O2 Saturation 99.4 H (94-97) % Chloride 108 H (98-107) mmol/L BUN 54 H (9-20) mg/dL Creatinine 3.25 H (0.66-1.25) mg/dL Glucose 101 H (74-99) mg/dL POC Glucose (mg/dL) (70-110) mg/dL Calcium 7.9 L (8.4-10.2) mg/dL Phosphorus 5.6 H (2.5-4.5) mg/dL 11/12/23 11/12/23 Range/Units 10:02 12:07 WBC (3.8-10.6) k/uL RBC (4.30-5.90) m/uL Hgb (13.0-17.5) gm/dL Hct (39.0-53.0) % MCHC (31.0-37.0) g/dL RDW (11.5-15.5) % Neutrophils # (1.3-7.7) k/uL Lymphocytes # (1.0-4.8) k/uL ABG pO2 153 H (83-108) mmHg ABG Total CO2 25 H (19-24) mmol/L ABG O2 Saturation 99.7 H (94-97) % Chloride (98-107) mmol/L BUN (9-20) mg/dL Creatinine (0.66-1.25) mg/dL Glucose (74-99) mg/dL POC Glucose (mg/dL) 117 H (70-110) mg/dL Calcium (8.4-10.2) mg/dL Phosphorus (2.5-4.5) mg/dL Assessment and Plan (1) Bilateral lower leg cellulitis Current Visit: Yes Status: Acute Code(s): L03.116 - CELLULITIS OF LEFT LOWER LIMB; L03.115 - CELLULITIS OF RIGHT LOWER LIMB SNOMED Code(s): 687534059 (2) Open wound of both lower extremities Current Visit: Yes Status: Acute Code(s): S81.801A - UNSPECIFIED OPEN WOUND, RIGHT LOWER LEG, INITIAL ENCOUNTER; S81.802A - UNSPECIFIED OPEN WOUND, LEFT LOWER LEG, INITIAL ENCOUNTER SNOMED Code(s): 15737785 (3) Sepsis Current Visit: Yes Status: Acute Code(s): A41.9 - SEPSIS, UNSPECIFIED ORGANISM SNOMED Code(s): 92290663 (4) Pneumonia Current Visit: Yes Status: Acute Code(s): J18.9 - PNEUMONIA, UNSPECIFIED ORGANISM SNOMED Code(s): 442004664 Plan: 1patient presented to hospital with sepsis in this patient who did have a fever tachycardia elevated white count source is likely bilateral lower extremity wound and cellulitis with more extensive wound to the left lower extremity in this patient who did have a history of PAD and has multiple vascular procedure last wound culture done from the right leg has been Pseudomonas and VRE that was done on 10/03/2023, culture done this admission are growing Pseudomonas aeruginosa Enterococcus faecalis that is not VRE and MRSA 2patient is status post debridement and deep culture completed on 11/03/2023 which did grow multiple pathogen including Pseudomonas Morganella Enterococcus faecalis and MRSA 3patient did have a perforated peptic ulcer status post laparotomy and modified Jasvir patch 4-patient sputum is growing stenotrophomonas concerning for gram-negative pneumonia 5-patient is broadly covered with daptomycin, Zosyn Levaquin and Eraxis, patient noticed to have ischemic changes to the right lower extremity vascular surgery has been consulted RN to contact them Dictation was produced using [employer] dictation software. please excuse any grammatical, word or spelling errors. Time with Patient: Less than 30
--- NOTE | 2023-11-12 16:37 | P.PN ---
Subjective Progress Note Date: 11/12/23 CHIEF COMPLAINT: Perforated gastric ulcer HISTORY OF PRESENT ILLNESS: The patient is a 63-year-old male in intensive care unit status post repair of perforated gastric ulcer. Patient has been somnolent. Per discussion with nursing, patient SANDY is green and viscous today. ROS: No reports of nausea and vomiting. No fevers or chills. No new chest pain. No productive sputum PHYSICAL EXAM: VITAL SIGNS: Reviewed CONSTITUTIONAL: Well developed and in no acute distress. EYES: Conjuctivae without sclera icterus. Extraocular movements grossly intact. HEAD, EARS, NOSE, THROAT: Dry oral mucosa. Head is atraumatic, normocephalic. Hears conversational speech. No nasal drainage. RESPIRATORY: Intubated. CARDIOVASCULAR: Palpable 2+ radial pulses. Tachycardic ABDOMEN: Abdominal wound VAC present. SANDY green and viscous. No signs of infection. MUSCULOSKELETAL: No gross deformity of the lower extremities noted. No clubbing. No cyanosis. SKIN: Good skin turgor. Well perfused. NEUROLOGIC: Cranial nerves II through XII grossly intact. No focal or lateralizing signs. PSYCH: Awake with difficulty following commands. CLINICAL LABS: Reviewed. WBC elevated 17,000 but declining 15,000 ASSESSMENT: 1. Perforated gastric ulcer 2. Alcoholism with alcoholic liver/cirrhosis and ascites 3. Anemia 4. Acute renal failure due to acute tubular necrosis, stage III PLAN: 1. He has new greenish output from SANDY which is at the ulcer bed. May need confirmatory study to confirm leak 2. Keep n.p.o. 3. Will need antibiotic coverage to include fungal coverage Objective - Vital Signs Vital signs: Vital Signs Temp 97.8 F 11/12/23 16:00 Pulse 89 11/12/23 16:33 Resp 10 L 11/12/23 16:00 BP 103/63 11/06/23 03:00 Pulse Ox 100 11/12/23 16:00 FiO2 35 11/12/23 08:54 Intake & Output 11/11/23 11/12/23 11/12/23 18:59 06:59 18:59 Intake Total 083.764 8425.321 360.558 Output Total 2210 2305 1930 Balance -8738.416 -3946.679 -6759.442 Weight 95.3 kg Intake: IV 590 263 335 Anidulafungin 100 mg In 100 Sodium Chloride 0.9% 100 ml @ 84 mls/hr IVPB DAILY [facility] Rx#:[id number] DAPTOmycin 500 mg In 50 Sodium Chloride 0.9% 50 ml @ 100 mls/hr IVPB Q48H [facility] Rx#:[id number] KVO 240 180 105 Levofloxacin 250Mg-D5w 100 50 Pmx 250 mg In Dextrose/ Water 1 50ml.bag @ 50 mls /hr IVPB Q24H [facility] Rx#: [id number] Piperacillin-Tazobactam 3 200 100 .375 gm In Sodium Chloride 0.9% 100 ml @ 25 mls/hr IVPB Q8HR [facility] Rx# :[id number] Pressure lines 33 30 Intake, IV Titration 155.584 787.321 25.558 Amount Mvi, Adult No.4 with Vit 768 K 10 ml Trace (Conc-1Ml/ Dose) 1 ml Sodium Acetate 40 meq Potassium Chloride 40 meq Calcium Gluconate 1.5 gm Magnesium Sulfate gm 1 gm In Amino Acids 5 %/ Dextrose 20 % 1,000 ml @ 32 mls/hr IV .Q24H [facility] Rx #:[id number] Norepinephrine 4 mg In 21.125 19.321 25.558 Sodium Chloride 0.9% 250 ml @ 0.03 MCG/KG/MIN 9. 851 mls/hr IV .Q24H [facility] Rx#:[id number] propofoL 1,000 mg In 134.459 Empty Bag 1 bag @ 35 MCG/ KG/MIN 19.677 mls/hr IV . Q5H5M [facility] Rx#:[id number] Output: Gastric Drainage 230 50 Drainage 1060 1110 730 Abdomen 500 500 200 Right 560 610 530 Urine 920 1195 1150 Other: Voiding Method Indwelling Catheter Indwelling Catheter Indwelling Catheter # Bowel Movements 1 ABP, PAP, CO, CI - Last Documented Arterial Blood Pressure 99/55 - Labs CBC & Chem 7: 11/12/23 04:47 11/12/23 04:47 Labs: Abnormal Lab Results - Last 24 Hours (Table) 11/12/23 11/12/23 11/12/23 Range/Units 04:47 04:47 05:40 WBC 15.7 H (3.8-10.6) k/uL RBC 2.73 L (4.30-5.90) m/uL Hgb 7.1 L (13.0-17.5) gm/dL Hct 23.6 L (39.0-53.0) % MCHC 30.2 L (31.0-37.0) g/dL RDW 23.8 H (11.5-15.5) % Neutrophils # 14.3 H (1.3-7.7) k/uL Lymphocytes # 0.5 L (1.0-4.8) k/uL ABG pO2 136 H (83-108) mmHg ABG Total CO2 25 H (19-24) mmol/L ABG O2 Saturation 99.4 H (94-97) % Chloride 108 H (98-107) mmol/L BUN 54 H (9-20) mg/dL Creatinine 3.25 H (0.66-1.25) mg/dL Glucose 101 H (74-99) mg/dL POC Glucose (mg/dL) (70-110) mg/dL Calcium 7.9 L (8.4-10.2) mg/dL Phosphorus 5.6 H (2.5-4.5) mg/dL 11/12/23 11/12/23 Range/Units 10:02 12:07 WBC (3.8-10.6) k/uL RBC (4.30-5.90) m/uL Hgb (13.0-17.5) gm/dL Hct (39.0-53.0) % MCHC (31.0-37.0) g/dL RDW (11.5-15.5) % Neutrophils # (1.3-7.7) k/uL Lymphocytes # (1.0-4.8) k/uL ABG pO2 153 H (83-108) mmHg ABG Total CO2 25 H (19-24) mmol/L ABG O2 Saturation 99.7 H (94-97) % Chloride (98-107) mmol/L BUN (9-20) mg/dL Creatinine (0.66-1.25) mg/dL Glucose (74-99) mg/dL POC Glucose (mg/dL) 117 H (70-110) mg/dL Calcium (8.4-10.2) mg/dL Phosphorus (2.5-4.5) mg/dL
[2023-11-12 18:25] LABS: Glucose,Whole Blood 108 mg/dL (70-110)
[2023-11-13 05:05] LABS: Anisocytosis Moderate; Basophils % (A) 0 %; Eosinophils # (A) 0.2 k/uL (0-0.7); Eosinophils % (A) 1 %; HCT 24.1 % (39.0-53.0); HGB 7.1 gm/dL (13.0-17.5); Hypochromasia Marked; Lymphocytes # (A) 0.6 k/uL (1.0-4.8); Lymphocytes % (A) 4 %; MCH 25.7 pg (25.0-35.0); MCHC 29.6 g/dL (31.0-37.0); MCV 86.8 fL (80.0-100.0); Mean Platelet Volume 8.8; Microcytosis Slight; Monocytes # (A) 0.6 k/uL (0-1.0); Monocytes % (A) 4 %; Neutrophils # (A) 13.5 k/uL (1.3-7.7); Neutrophils % (A) 89 %; Platelet Count 419 k/uL (150-450); RBC 2.78 m/uL (4.30-5.90); RDW 23.3 % (11.5-15.5); WBC 15.1 k/uL (3.8-10.6)
[2023-11-13 05:42] LABS: African American GFR (CKD) 23 (>60 ml/min/1.73 sqM); Anion Gap 9 mmol/L; Blood Urea Nitrogen 54 mg/dL (9-20); Calcium 8.3 mg/dL (8.4-10.2); Carbon Dioxide 23 mmol/L (22-30); Chloride 110 mmol/L (98-107); Glucose 106 mg/dL (74-99); Magnesium 1.9 mg/dL (1.6-2.3); Non-African American GFR(CKD) 20 (>60 ml/min/1.73 sqM); Phosphorus 5.3 mg/dL (2.5-4.5); Potassium 3.9 mmol/L (3.5-5.1); Sodium 142 mmol/L (137-145)
[2023-11-13] MEDS ORDERED: IPRATROPIUM-ALBUTEROL 3 ML NEB INHALATION PRN (07:37)
--- NOTE | 2023-11-13 08:14 | XR ---
EXAMINATION TYPE: XR chest 1V portable DATE OF EXAM: 11/13/2023 HISTORY: Shortness of breath. COMPARISON: 11/12/2023 TECHNIQUE: Single view of the chest is submitted. FINDINGS: Right IJ central venous line and NG tube are unchanged. Endotracheal tube has been. NG tube is seen c oursing into the stomach. Basilar increased density may reflect atelectasis and/or infiltrates. The heart is stable. Hilar and mediastinal structures are within normal limits. Degenerative changes are seen of the dorsal spine. IMPRESSION: 1. Basilar increased density may reflect atelectasis and/or infiltrates.
[2023-11-13] MEDS: IPRATROPIUM-ALBUTEROL 3 ML NEB INHALATION SCH (08:16)
--- NOTE | 2023-11-13 08:26 | P.PN ---
Subjective Patient is seen in follow-up for acute kidney injury. Renal function fairly stable. Nonoliguric. On IV Lasix. On Levophed. Receiving TPN. Vital signs are stable. On Levophed. General: No acute distress. HEENT: NG tube noted. On nasal cannula. LUNGS: No audible rhonchi or wheezes. HEART: Rate and Rhythm are regular. ABDOMEN: No distention. EXTREMITITES: Lower extremities wrapped. No drainage. 2+ edema. Objective - Vital Signs Vital signs: Vital Signs Temp 98.6 F 11/13/23 00:00 Pulse 94 11/13/23 07:00 Resp 16 11/13/23 07:00 BP 103/63 11/06/23 03:00 Pulse Ox 98 11/13/23 07:00 FiO2 35 11/12/23 08:54 Intake & Output 11/12/23 11/13/23 11/13/23 18:59 06:59 18:59 Intake Total 884.827 0837.125 65.189 Output Total 2390 1360 135 Balance -1903.442 102.125 -69.811 Weight 95.1 kg Intake: IV 461 606 63 Anidulafungin 100 mg In 100 Sodium Chloride 0.9% 100 ml @ 84 mls/hr IVPB DAILY [facility] Rx#:[id number] KVO 125 120 10 Levofloxacin 250Mg-D5w 450 50 Pmx 250 mg In Dextrose/ Water 1 50ml.bag @ 50 mls /hr IVPB Q24H [facility] Rx#: [id number] Piperacillin-Tazobactam 3 200 .375 gm In Sodium Chloride 0.9% 100 ml @ 25 mls/hr IVPB Q8HR [facility] Rx# :[id number] Pressure lines 36 36 3 Intake, IV Titration 25.558 856.125 2.189 Amount Mvi, Adult No.4 with Vit 790.4 K 10 ml Trace (Conc-1Ml/ Dose) 1 ml Sodium Acetate 40 meq Potassium Chloride 40 meq Calcium Gluconate 1.5 gm Magnesium Sulfate gm 1 gm In Amino Acids 5 %/ Dextrose 20 % 1,000 ml @ 32 mls/hr IV .Q24H [facility] Rx #:[id number] Norepinephrine 4 mg In 25.558 65.725 2.189 Sodium Chloride 0.9% 250 ml @ 0.03 MCG/KG/MIN 9. 851 mls/hr IV .Q24H [facility] Rx#:[id number] Output: Gastric Drainage 50 Drainage 790 300 100 Abdomen 200 Right 590 300 100 Urine 1550 1060 35 Other: Voiding Method Indwelling Catheter Indwelling Catheter # Bowel Movements 1 ABP, PAP, CO, CI - Last Documented Arterial Blood Pressure 99/54 - Labs CBC & Chem 7: 11/13/23 04:40 11/13/23 04:40 Labs: Abnormal Lab Results - Last 24 Hours (Table) 11/12/23 11/12/23 11/13/23 Range/Units 10:02 12:07 04:40 WBC (3.8-10.6) k/uL RBC (4.30-5.90) m/uL Hgb (13.0-17.5) gm/dL Hct (39.0-53.0) % MCHC (31.0-37.0) g/dL RDW (11.5-15.5) % Neutrophils # (1.3-7.7) k/uL Lymphocytes # (1.0-4.8) k/uL ABG pO2 153 H (83-108) mmHg ABG Total CO2 25 H (19-24) mmol/L ABG O2 Saturation 99.7 H (94-97) % Chloride 110 H (98-107) mmol/L BUN 54 H (9-20) mg/dL Creatinine 3.14 H (0.66-1.25) mg/dL Glucose 106 H (74-99) mg/dL POC Glucose (mg/dL) 117 H (70-110) mg/dL Calcium 8.3 L (8.4-10.2) mg/dL Phosphorus 5.3 H (2.5-4.5) mg/dL 11/13/23 Range/Units 04:40 WBC 15.1 H (3.8-10.6) k/uL RBC 2.78 L (4.30-5.90) m/uL Hgb 7.1 L (13.0-17.5) gm/dL Hct 24.1 L (39.0-53.0) % MCHC 29.6 L (31.0-37.0) g/dL RDW 23.3 H (11.5-15.5) % Neutrophils # 13.5 H (1.3-7.7) k/uL Lymphocytes # 0.6 L (1.0-4.8) k/uL ABG pO2 (83-108) mmHg ABG Total CO2 (19-24) mmol/L ABG O2 Saturation (94-97) % Chloride (98-107) mmol/L BUN (9-20) mg/dL Creatinine (0.66-1.25) mg/dL Glucose (74-99) mg/dL POC Glucose (mg/dL) (70-110) mg/dL Calcium (8.4-10.2) mg/dL Phosphorus (2.5-4.5) mg/dL Microbiology - Last 24 Hours (Table) 11/12/23 12:10 Gram Stain - Preliminary Other - Other Assessment and Plan Plan: Assessment: 1. Acute kidney injury secondary to ATN secondary to septic shock. No hydronephrosis noted on CAT scan. Baseline creatinine near 1 and peaked at 3.32 this admission. Stable at 3.14 today. Nonoliguric. 2. Septic shock secondary to perforated viscus and lower extremity wounds. 3. Metabolic acidosis secondary to acute kidney injury. Improved. 4. Volume overload. 5. Hyperphosphatemia secondary to acute kidney injury. Phosphorus level 5.3 dated November 13, 2023. 6. Anemia. Avoid IV iron in the setting of acute infection. Plan: TPN per surgery. Maintain IV Lasix. Wean Levophed. Continue to monitor renal function and urine output. Add Aranesp.
[2023-11-13] MEDS: DARBEPOETIN ALFA 40 MCG/0.4 ML SYRINGE SQ SCH (09:56)
[2023-11-13 11:54] LABS: Glucose,Whole Blood 110 mg/dL (70-110)
[2023-11-13] MEDS: FAT EMULSION 20% 250 ML IV SCH (12:35)
--- NOTE | 2023-11-13 13:22 | P.PN ---
Subjective Progress Note Date: 11/13/23 CHIEF COMPLAINT: Perforated gastric ulcer HISTORY OF PRESENT ILLNESS: patient is postop day #8 status post repair of perforated gastric ulcer. Patient was extubated yesterday. SANDY drain color had changed to greenish on the Monday night. Today the SANDY drain is yellow- greenish brown. WBC is 15.1 Hgb 7.1 creatinine 3.14. Afebrile. On small dose of Levophed. PHYSICAL EXAM: VITAL SIGNS: Reviewed. GENERAL: Intubated. ABDOMEN: Soft. nondistended. wound VAC intact with serosanguineous ascites fl uid. SANDY drain fluid is yellowish-greenish brown ASSESSMENT: 1. Perforated gastric ulcer 2. Sepsis and septic shock 3. History of alcoholism 4. Severe protein calorie malnutrition PLAN: -Continue to monitor SANDY drain output, concerns for possible leak -Case discussed with Dr. Gracia. He recommends to continue to observe patient -Wound VAC to be changed today -Continue TPN for nutrition support -continue ICU management -Continue supportive care -Antibiotics per ID service -Continue IV Protonix Physician Platform Engineer note has been reviewed by physician. Signing provider agrees with the documented findings, assessment, and plan of care. Objective - Vital Signs Vital signs: Vital Signs Temp 98.5 F 11/13/23 08:00 Pulse 103 H 11/13/23 10:00 Resp 16 11/13/23 10:00 BP 103/63 11/06/23 03:00 Pulse Ox 99 11/13/23 10:00 FiO2 35 11/12/23 08:54 Intake & Output 11/12/23 11/13/23 11/13/23 18:59 06:59 18:59 Intake Total 164.228 0240.125 334.189 Output Total 2390 1360 825 Balance -1903.442 102.125 -490.811 Weight 95.1 kg Intake: IV 461 606 332 Anidulafungin 100 mg In 100 100 Sodium Chloride 0.9% 100 ml @ 84 mls/hr IVPB DAILY [facility] Rx#:[id number] DAPTOmycin 500 mg In 50 Sodium Chloride 0.9% 50 ml @ 100 mls/hr IVPB Q48H [facility] Rx#:[id number] KVO 125 120 20 Levofloxacin 250Mg-D5w 450 50 Pmx 250 mg In Dextrose/ Water 1 50ml.bag @ 50 mls /hr IVPB Q24H [facility] Rx#: [id number] Piperacillin-Tazobactam 3 200 100 .375 gm In Sodium Chloride 0.9% 100 ml @ 25 mls/hr IVPB Q8HR [facility] Rx# :[id number] Pressure lines 36 36 12 Intake, IV Titration 25.558 856.125 2.189 Amount Mvi, Adult No.4 with Vit 790.4 K 10 ml Trace (Conc-1Ml/ Dose) 1 ml Sodium Acetate 40 meq Potassium Chloride 40 meq Calcium Gluconate 1.5 gm Magnesium Sulfate gm 1 gm In Amino Acids 5 %/ Dextrose 20 % 1,000 ml @ 32 mls/hr IV .Q24H [facility] Rx #:[id number] Norepinephrine 4 mg In 25.558 65.725 2.189 Sodium Chloride 0.9% 250 ml @ 0.03 MCG/KG/MIN 9. 851 mls/hr IV .Q24H [facility] Rx#:[id number] Output: Gastric Drainage 50 Drainage 790 300 190 Abdomen 200 Right 590 300 190 Urine 1550 1060 635 Other: Voiding Method Indwelling Catheter Indwelling Catheter # Bowel Movements 1 1 ABP, PAP, CO, CI - Last Documented Arterial Blood Pressure 114/66 - Labs CBC & Chem 7: 11/13/23 04:40 11/13/23 04:40 Labs: Abnormal Lab Results - Last 24 Hours (Table) 11/12/23 11/13/23 11/13/23 Range/Units 12:07 04:40 04:40 WBC 15.1 H (3.8-10.6) k/uL RBC 2.78 L (4.30-5.90) m/uL Hgb 7.1 L (13.0-17.5) gm/dL Hct 24.1 L (39.0-53.0) % MCHC 29.6 L (31.0-37.0) g/dL RDW 23.3 H (11.5-15.5) % Neutrophils # 13.5 H (1.3-7.7) k/uL Lymphocytes # 0.6 L (1.0-4.8) k/uL Chloride 110 H (98-107) mmol/L BUN 54 H (9-20) mg/dL Creatinine 3.14 H (0.66-1.25) mg/dL Glucose 106 H (74-99) mg/dL POC Glucose (mg/dL) 117 H (70-110) mg/dL Calcium 8.3 L (8.4-10.2) mg/dL Phosphorus 5.3 H (2.5-4.5) mg/dL Microbiology - Last 24 Hours (Table) 11/12/23 12:10 Gram Stain - Preliminary Other - Other
--- NOTE | 2023-11-13 13:40 | P.PN ---
Subjective Progress Note Date: 11/13/23 Principal diagnosis: Perforated gastric ulcer with acute pneumoperitoneum and severe cellulitis of lower extremities with polymicrobial infection Patient is a 63-year-old white male with past medical history significant for chronic bilateral lower extremity wounds with multiple previous debridements, peripheral vascular disease, recent femoropopliteal artery bypass, AAA, coronary artery disease, hyperlipidemia, hypertension, and tobacco dependence. He is currently intubated to the mechanical ventilator in the intensive care unit, and unable to provide any information for HPI. Apparently, he presented to the emergency department on 10/29/2023 with his lower extremity wounds and suspected cellulitis/sepsis. He follows with vascular surgery. On 11/03/2023 he did under go debridement of his bilateral lower extremity wounds. Wound cultures positive for polymicrobial organisms including Pseudomonas aeruginosa, MRSA, Enterococcus faecalis. Antibiotics are being directed by infectious disease. Yesterday, on 11/05/2023 the patient was having some abdominal pain and issues with hypotension. A rapid response was called. CT of the abdomen and pelvis without contrast demonstrated a pneumoperitoneum. Patient was then taken to the operating room yesterday evening for an exploratory laparotomy, was found to have a perforated gastric ulcer; subsequently underwent repair with a modified Jasvir patch. Patient was transferred back to the intensive care unit in criti nerissa condition. Currently, patient is being evaluated in the intensive care unit intubated to the mechanical ventilator. Most recent ABGs consistent with profound metabolic acidosis. PaO2 327, pCO2 45, pH of 7.12. He was given 3 A of sodium bicarbonate. Current ventilator settings include assist-control, respiratory rate 16, tidal volume 450, FiO2 50%, and PEEP of 5. Chest x-ray, showing the tip of the endotracheal tube in a proximal position, approximately 9 cm above the prince. Nasogastric tube within the stomach. There is a left- sided pleural effusion. Dr. Crystal previously had the endotracheal tube advanced 3 cm. Patient is currently sedated on propofol which is infusing at 25 mc g/kg/min. He is synchronous with mechanical ventilator. Remains hypotensive, currently requiring vasopressors in the form of norepinephrine which is infusing at 0.1 mcg/kg/min. Postoperatively, the patient was fluid resuscitated with a total of 2 L crystalloid fluid. Lactated Ringer's also infusing at 125 mL/h. CVP is reading 8 mmHg. Patient has remained anuric. Heart rhythm appears atrial fibrillation with controlled ventricular response ranging from 80 to 90 bpm. Patient does have history of A-fib, not on any anticoagulation currently. Patient's abdominal incision has a wound VAC, and there is a compressed SANDY drain that is drained a total of 510 mL of serosanguineous output since surgery. Patient is currently covered on a combination of Zosyn, daptomycin, and Eraxis, which are being directed by infectious disease. Currently, hypothermic with external warming blanket on. Postoperative CBC: WBC count 31.8, hemoglobin 9.4, hematocrit 32.7, platelets 647. Postoperative BMP: Sodium 135, potassium 4.2, chloride 112, serum bicarb 12, BUN 53, creatinine 2.46, glucose 120. Overall, prognosis is guarded. On 11/07/2023, the patient is being seen for a follow-up. The patient remains intubated on the mechanical ventilator. This morning, the patient is sedated on propofol which is running at 40 mcg/kg/min. The patient remains intubated on mechanical ventilator on assist-control mode rate of 16, tidal volume of 450, FiO2 of 35% with a PEEP of 5. Chest x-ray shows consolidation of the lung bases more so on the left. ET tube is in good location. The patient also has an NG tube in place. The blood gas showed a pH of 7.42 with a pCO2 of 31 and pO2 of 87. No significant extra secretion the patient is currently intubated by #8 orotracheal tube. Hemodynamically, the patient remains on low-dose norepinephrine which is running at 0.05 mcg/kg/min. The patient is on a bicarb infusion running at 125 cc an hour. Output from the SANDY drain is quite extensive approximately 500 cc of serous material over the past 8 hours. The patient remains on the same antibiotic coverage and this includes Zosyn, daptomycin and Eraxis. On today's evaluation, the patient's white cell count is at 21 with a hemoglobin 7.1 and a platelet count of 477. BUN is 53 with a creatinine of 2.8 and a sodium levels at 137. The potassium levels of 3.3. Serum bicarb is at 20. Cultures from the wound is positive for Pseudomonas aeruginosa, Morganella and Enterococcus faecalis. Sputum sample is still negative for the time being. The patient is afebrile. The wounds in the lower extremity are appropriately dressed. Noted the patient has undergone multiple previous debridements of the lower extremity wounds. He is known to have severe PAD vascular disease. He is status post femoropopliteal bypass surgery. He is also known to have abdominal aortic aneurysm status post endovascular grafting along with coronary artery disease and hypertension hyperlipidemia. The patient is also status post gastric perforation with pneumoperitoneum requiring immediate surgical interventionAnd the patient has undergone exploratory laparotomy and repair of the perforated gastric ulcer with a modified Jasvir patch technique. Surgery was done on 11/05/2023 and the patient is currently postop day #2. He remains n.p.o. for now. On today's evaluation of 11/08/2023, the patient is being seen for a follow-up. Noted this morning, the patient remains sedated on propofol which is running at 40 mcg/kg/min. The patient was given a sedation holiday which she essentially failed. He did not recover his mentation and the patient was essentially thrashing and becoming asynchronous with mechanical ventilator and the trial was aborted. As such, the patient was kept on mechanical ventilator and earlier this morning the patient was on assist-control mode at rate of 16, tidal volume of 450, FiO2 of 35% with a PEEP of 5. Chest x-ray remains unchanged and the patient has consolidation lower lungs bilaterally and possibly some underlying pleural effusions. Blood gas showed a pH of 7.47 with a pCO2 of 33 and pO2 of 145. The patient remains in atrial fibrillation. The patient remains on pressors and norepinephrine is running at 0.03 mcg/kg/min. The patient remains NPO. Output from the NG tube is minimal at this point in time. Output from the SANDY drain was noted and it is in the order of 1.2 L of serous material over the past 24 hours. The surgical wound site is dry clean and intact. Wound VAC is also in place. The overall fluid balance over the past 24 hours is positive for 0.4 L. This sputum sample is positive for stenotrophomonas and Doreen. The current antibiotic coverage includes a combination of Eraxis, daptomycin and Zosyn. Blood work from today shows a WBC count of 12.8, hemoglobin of 7 and a platelet count of 316. BUN is 52 with a creatinine of 3.07 and a sodium levels at 137 and potassium level is at 3.9. Calcium level is low at 6.4. Phosphorus level is at 5.1. Triglycerides at 174. Patient is afebrile. The patient is currently postop day #3 following a repair of a perforated gastric ulcer with a modified Jasvir patch technique. Surgery was done on 11/05/2023. 11/09/2023, the patient is being seen for a follow-up. The patient remains intubated on the mechanical ventilator. Several attempt to wean the patient off sedation. That the patient was encephalopathic and thrashing and was not following any commands. Based on that, the patient was kept on propofol and this morning the patient is on propofol running at 40 mcg/kg/min. Possibility of encephalopathy with rates metabolic encephalopathy, drug encephalopathy, uremic/hepatic encephalopathy is to be considered. Possibility of an acute CVA in the setting of chronic atrial fibrillation cannot be completely ruled out. The patient is currently on a mechanical ventilator assist-control mode with a rate of 16, tidal volume of 450, FiO2 35% with a PEEP of 5. Blood gas showed a pH of 7.42 pCO2 pO2 of 139. The sputum sample was positive for stenotrophomonas and Levaquin was also added. The patient has no major respiratory secretions. Chest x-ray shows bilateral lower lobe consolidation/effusion. Hemodynamically, the patient is on no pressors. The SANDY drain is still draining approximately a liter of serosanguineous material on a daily basis and the wound VAC is still in place and the patient was started on TPN for nutritional support. Antibiotic coverage includes a combination of Zosyn, Eraxis and vancomycin. Patient is also suffering from an acute kidney injury. Creatinine is on the rise and this morning creatinine is at 3.27 with a BUN of 54. Sodium levels of 137, potassium of 4.2, LFTs are normal, albumin is at 1.9 with a total protein of 4.7. WBC count is at 15.4 with a hemoglobin of 7.2 and a platelet count of 315. Cardiac rhythm is atrial fibrillation with a controlled rate. 11/10/2023, the patient is being seen for a follow-up. Remains intubated on the mechanical ventilator. Based on underlying encephalopathy/delirium, the patient was given a CAT scan of the brain that showed no acute abnormalities. Ammonia level was also not elevated. Another sedation holiday will be given. The patient was taken off sedation this morning and did not return to being monitored. Meanwhile, the patient remains on mechanical ventilator. The patient on assist-control mode rate of 16, tidal volume of 450, FiO2 35% and PEEP of 5. Antibiotic coverage remains unchanged. Follow-up chest x-ray from today shows some limited improvement in the lower lobe consolidation bilaterally. The patient is on Levaquin regarding stenotrophomonas in the sputum. Rest of the antibiotic coverage is unchanged compared to yesterday as the patient remains on a combination of Zosyn, Eraxis and daptomycin. The patient is still producing serosanguineous fluid from the SANDY drain in order of 1 L over the past 24 hours. He is on low-dose norepinephrine running at 0.02 mcg/kg/min. In terms of blood work, the ABGs from today shows a pH of 7.41 with a pCO2 of 36 and a pO2 of 134. The white cell count is 18 with a hemoglobin of 7.9 and a platelet count of 293. BUN is 54 with a creatinine of 3.2 and a sodium levels at 136 and a potassium level is at 4.2. Fluid balance over the past 24 hours has been -1.7 L. The patient is producing adequate amount of urine output at this point in time. The patient is also on TPN for nutritional support. NG tube is in place and there are no signs of any active bleeding. Blood sugars at 94. On 11/11/2023, the patient is being seen for a follow-up. Remains intubated on the mechanical ventilator. Noted the patient was given a sedation holiday that lasted for several hours. During that time, the patient remained calm with occasional agitation. No significant recovery in the level of alertness and the patient remained encephalopathic. Ultimately, he became apneic and the sedation holiday was discontinued. Noted while having the sedation holiday yesterday, the patient was on a pressure support mode of mechanical ventilation. This morning, the patient is back on propofol which is running at 35 mcg/kg/min. He is on assist-control mode rate of 16, tidal volume of 500, FiO2 of 35% with a PEEP of 5. Blood gas showed a pH of 7.4 with a pCO2 of 37 and a pO2 of 125. Chest x-ray findings are essentially stable. There is interval clearing of the lower lobe pulmonary infiltrates and there is probably a left-sided pleural effusion. Orotracheal tubes are in good location. The white cell count of 17.6 with a hemoglobin of 7.6 and a platelet count of 315. Rest of the electrolytes show a BUN of 54 with a creatinine of 3.3 and the creatinine is stable compared to yesterday. BUN is 54. Serum bicarbonate 21 with a sodium levels of 137. The patient is afebrile. The patient is minimal amount of norepinephrine which is running at 0.01 mcg/kg/min. The patient receiving TPN for nutritional support. The overall fluid balance is 0 over the past 24 hours. No other significant events otherwise for now. SANDY drain output is more than 500 cc over the past 24 hours. Surgical wound site over the abdomen is dry clean and intact. NG output is minimal at this point in time. 11/12/2023, the patient is being seen for a follow-up. The patient has been off sedation since yesterday. The patient also tolerated a prolonged spontaneous breathing trial with a pressure support of 7 and a PEEP of 5 yesterday. Nevertheless, he was not extubated overnight and the patient was kept on mechanical ventilator and placed on assist-control. This morning, he remains off sedation. He is following some simple commands although his response is not distant. He remains on the mechanical ventilator assist-control mode with rate of 16, tidal volume of 450, FiO2 35% with a PEEP of 5. pH is at 7.37 with a pCO2 of 41 and a pO2 of 136. The patient is on minimal amount of pressors with norepinephrine running at 0.01 mcg/kg/min. Chest x-ray shows limited infiltration of the lung base bilaterally. TPN is running at a rate of 32. Output from the NG is minimal. SANDY drain is produced less than 500 cc overnight. Output is greenish and clinical needs to be cultured. The white cell count of 15.7, hemoglobin is at 7.1 with a platelet count of 314. BUN is 54 with a creatinine of 3.2 and a sodium low at 140 with a potassium level of 3.9. Antibiotic coverage remains unchanged. The patient remains on Levaquin, Eraxis, Zosyn, daptomycin. Patient was evaluated today on 11/13/2023 remains in the jake marginal at best. Patient remains on norepinephrine at 0.03 mcg/kg/min remains on TPN at 32 cc/h remains on 2 L nasal cannula, patient was extubated yesterday but remains extremely marginal at best. Mentation is borderline, patient is encephalopathic, could not carry on reasonable conversation with the patient, he seems to be confused. Remains on Eraxis daptomycin and Levaquin and Zosyn. Patient had a polymicrobial infection from his lower extremities and he may need more debridement specially on the right lower extremity, hence vascular surgery was reconsulted. Patient is going stenotrophomonas in the sputum and he is being followed by infectious disease, may need more debridement on his right lower extremity. Continues to have leukocytosis with WBC count of 15.1 hemoglobin is 7.1 basic metabolic profile is normal BUN is 54 creatinine 3.14 chest x-ray today showed bibasilar increased density consistent with atelectasis and/or infiltrate. Bibasilar Objective - Vital Signs Vital signs: Vital Signs Temp 98.5 F 11/13/23 08:00 Pulse 90 11/13/23 11:00 Resp 14 11/13/23 11:00 BP 103/63 11/06/23 03:00 Pulse Ox 99 11/13/23 11:00 FiO2 35 11/12/23 08:54 Intake & Output 11/12/23 11/13/23 11/13/23 18:59 06:59 18:59 Intake Total 450.700 0212.125 457.189 Output Total 2390 1360 1380 Balance -1903.442 102.125 -922.811 Weight 95.1 kg Intake: IV 461 606 348 Anidulafungin 100 mg In 100 100 Sodium Chloride 0.9% 100 ml @ 84 mls/hr IVPB DAILY MISSY Rx#:[id number] DAPTOmycin 500 mg In 50 Sodium Chloride 0.9% 50 ml @ 100 mls/hr IVPB Q48H M[facility]SY Rx#:[id number] KVO 125 120 30 Levofloxacin 250Mg-D5w 450 50 Pmx 250 mg In Dextrose/ Water 1 50ml.bag @ 50 mls /hr IVPB Q24H M[facility]SY Rx#: [id number] Piperacillin-Tazobactam 3 200 100 .375 gm In Sodium Chloride 0.9% 100 ml @ 25 mls/hr IVPB Q8HR M[facility]SY Rx# :[id number] Pressure lines 36 36 18 Intake, IV Titration 25.558 856.125 109.189 Amount Mvi, Adult No.4 with Vit 107 K 10 ml Trace (Conc-1Ml/ Dose) 1 ml Sodium Acetate 40 meq Potassium Acetate 40 meq Calcium Gluconate 1.5 gm Magnesium Sulfate gm 1 gm In Amino Acids 5 %/Dextrose 20 % 1,000 ml @ 75 mls/hr IV .BY DURATION MISSY Rx#: [id number] Mvi, Adult No.4 with Vit 790.4 K 10 ml Trace (Conc-1Ml/ Dose) 1 ml Sodium Acetate 40 meq Potassium Chloride 40 meq Calcium Gluconate 1.5 gm Magnesium Sulfate gm 1 gm In Amino Acids 5 %/ Dextrose 20 % 1,000 ml @ 32 mls/hr IV .Q24H M[facility] Rx #:[id number] Norepinephrine 4 mg In 25.558 65.725 2.189 Sodium Chloride 0.9% 250 ml @ 0.03 MCG/KG/MIN 9. 851 mls/hr IV .Q24H MISSY Rx#:[id number] Output: Gastric Drainage 50 Drainage 790 300 190 Abdomen 200 Right 590 300 190 Urine 1550 1060 1190 Other: Voiding Method Indwelling Catheter Indwelling Catheter # Bowel Movements 1 1 ABP, PAP, CO, CI - Last Documented Arterial Blood Pressure 117/69 - Exam GENERAL EXAM: Revealed a 63-year-old white male looks frail, chronically ill, encephalopathic, on 2 L nasal cannula still on pressors. Pressure is marginal HEAD: Normocephalic and atraumatic EYES: Normal reaction of pupils, equal size. NOSE: Clear with pink turbinates. THROAT: No erythema or exudates. NECK: No masses, no JVD. Right IJ central line catheter in place. CHEST: No chest wall deformity. LUNGS: Symmetrical chest expansion, fine crackles at the bases no rhonchi no wheezes CVS: Distant S1-S2, no S3 gallop, irregular rhythm. ABDOMEN: Midline abdominal incision with wound VAC, SANDY drain compressed and draining purulent material abdomen is soft, bowel sounds hypoactive, no ap preciated organomegaly. The patient has a SANDY drain in place. SKIN: Bilateral lower extremities wrapped in postoperative dressing/Abhijeet Kerlix wrap, both lower extremities were unwrapped, and I was able to visualize the significant cellulitis in both lower extremities, obviously the right lower extremity cellulitis needs to have further debridement and vascular surgery was reconsulted CENTRAL NERVOUS SYSTEM: Patient seems to be confused, encephalopathic, does not follow simple instructions. EXTREMITIES: As noted above significant cellulitis of both lower extremities, with skin changes suggestive of ischemic changes in the right lower extremity throughout. Will definitely need further debridement. - Labs CBC & Chem 7: 11/13/23 04:40 11/13/23 04:40 Labs: Abnormal Lab Results - Last 24 Hours (Table) 11/13/23 11/13/23 Range/Units 04:40 04:40 WBC 15.1 H (3.8-10.6) k/uL RBC 2.78 L (4.30-5.90) m/uL Hgb 7.1 L (13.0-17.5) gm/dL Hct 24.1 L (39.0-53.0) % MCHC 29.6 L (31.0-37.0) g/dL RDW 23.3 H (11.5-15.5) % Neutrophils # 13.5 H (1.3-7.7) k/uL Lymphocytes # 0.6 L (1.0-4.8) k/uL Chloride 110 H (98-107) mmol/L BUN 54 H (9-20) mg/dL Creatinine 3.14 H (0.66-1.25) mg/dL Glucose 106 H (74-99) mg/dL Calcium 8.3 L (8.4-10.2) mg/dL Phosphorus 5.3 H (2.5-4.5) mg/dL Microbiology - Last 24 Hours (Table) 11/12/23 12:10 Gram Stain - Preliminary Other - Other Assessment and Plan Assessment: Impression Acute hypoxic respiratory failure secondary to sepsis and septic shock related to severe cellulitis of both lower extremities and abdominal sepsis with perfora ivon gastric ulcer and pneumoperitoneum requiring surgery as noted below. Perforated gastric ulcer and pneumoperitoneum, status post exploratory laparotomy with gastric ulcer repair with modified Jasvir patch on 11/05/2023, the patient is postop day #8 Bilateral hospital-acquired pneumonia patient is on multiple antibiotics. Septic shock with hypotension and shock, still requiring norepinephrine although the patient was extubated yesterday, but remains hemodynamically unstable. Sepsis and septic shock Severe nonanion gap metabolic acidosis, significantly improved. encephalopathy/delirium, acute metabolic encephalopathy Bilateral lower extremity wounds/cellulitis, status-post debridement on . Wounds positive for polymicrobial organisms including Pseudomonas aeruginosa, MRSA, Enterococcus faecalis. Antibiotics being directed by infectious disease specialist Peripheral vascular disease, with recent history of femoral popliteal artery bypass on 06/06/2023, subsequently, developing wound infection and dehiscence, undergoing multiple excisional debridements since then. Atrial fibrillation with controlled ventricular response Normocytic, normochromic anemia Acute leukocytosis Acute kidney injury secondary to hypotension and ATN, nonoliguric and the patient has a positive urine output. The patient remains nonoliguric, the creatinine remained stable for now. History of hypertension History of hyperlipidemia History of coronary artery disease with previous stent placement History of AAA with previous endovascular repair History of alcoholism Chronic ongoing tobacco dependence Recommendation: Patient remains critically ill and I plan to keep in the ICU Continue antibiotics Vascular surgery to reevaluate for his severe cellulitis may need further debridement of the right lower extremity wounds Continue TPN/nutritional support Continue hemodynamic support Continue strict I's and O's. Continue to monitor renal status on a daily basis Patient is critically ill. Continue GI DVT prophylaxis Critical care time is over 30 minutes Time with Patient: Greater than 30
--- NOTE | 2023-11-13 15:47 | P.PN ---
Subjective Progress Note Date: 11/13/23 H&P Date: 10/30/23 Chief Complaint: Worsening bilateral lower legs, increased pain, edema and "split open" This is 63-year-old gentleman with past medical history significant for PAD, multiple vascular procedures including femoral-tibial bypass followed by wound development, dehiscence of his left lower extremity, status post recent excisional debridement of the left lower leg wound with skin substitute placement, excisional debridement of the left great toe wound and excisional debridement of right lower leg wound x 2 on 10/03/[address] Inman, vascular surgery, presented to the ER with worsening bilateral lower extremity pain, edema, reports right lower extremity "split open" over the last week with serous drainage. His visiting nurse evaluated patient on Monday recommending ER. Denies any chest pain, palpitations or shortness of breath. Denies nausea vomiting or diarrhea. Denies abdominal pain. Denies fever or chills. Denies lightheadedness, dizziness or focal deficits. Wound and blood cultures obtained, initiated on vancomycin in the ER. Tmax 101, WBC 16.3, increased to 19.67, CRP 12.6 .hemoglobin 7.7, platelets 468. Sodium 129, potassium 3.3, bicarb 19, BUN 10, creatinine 0.7. Lactic acid 2.2, improved with IV fluid hy dration, 1.1. Magnesium 1-repeat level ordered stat. 10/31/2023 Tmax 101. WBC decreased to 15.1. reports decreased appetite. Sodium decreased to 127, renal function stable. Potassium 3.9, magnesium 1.2 - supplements ordered. Positive pain of bilateral lower extremities. Evaluated by infectious disease, antibiotics adjusted to Zyvox and meropenem. Denies chest pain, palpitations or shortness of breath. 11/01/2023 wound cultures growing Pseudomonas and Enterococcus faecalis, vancomycin and penicillin sensitive, afebrile, WBC up to 20.06, antibiotics further adjusted to Zosyn and daptomycin. Renal function stable. IV fluids adjusted yesterday to D5.9 with sodium improved up to 130. 11/02/2023 maintained on IV antibiotics as per ID. Afebrile, WBC decreased to 17.3. Hemoglobin 9.1, platelets 523. Sodium 131 on IV fluids of D5.9. Potassium 3.8, magnesium 1.8, creatinine 0.9. Pain controlled , denies chest pain, palpitations or shortness of breath, maintaining O2 sats in the high 90s on room air. Scheduled for debridement and deep cultures tomorrow with vascular surgery. 11/07/2023 remains vent dependent with FiO2 35%/5 of PEEP. Maintained on diprovan, Levophed and bicarb drips. Bicarb 20, BUN 53, creatinine 2.84. continues on daptomycin, Eraxis, Zosyn. WBC 21, afebrile. Receiving potassium supplementation for potassium 3.3. Hemoglobin 7.1, platelets 477. 11/08/2023 Vent dependent, FiO2 35%/+5 of PEEP. Unsuccessful weaning trial yesterday, not following commands. Scheduled for another weaning trial today. Bicarb 23, bicarb drip discontinued. Levophed resumed after being off for few hours during the night. Echo reported EF 55 to 60%. Telemetry atrial f ibrillation with controlled ventricular rates, cardiology following. Staff reported earlier this morning right foot noted to be cooler, mottled, improved with rewrapping of Abhijeet wrap's -less tight. TPN ordered. 11/09/2023 weaning trials attempted yesterday, patient was not following commands , not opening eyes ,shaking his head [id number]. Vent dependent, FiO2 35%/+5 of PEEP. Repeat weaning trial scheduled for today. continues on Levophed. Telemetry atrial fibrillation with controlled ventricular rate. continues to have large output from SANDY drain. Afebrile, WBC increased to 15.4. Hemoglobin 7.2, platelet count 317. Bicarb 21, BUN 54, creatinine 3.27. Sputum culture reporting stenotrophomonas maltophilia, Doreen albicans. Maintained on Zosyn, Eraxis and vancomycin. 11/10/2023 Vent dependent FiO2 35%/+5 of PEEP. Maintained on Levophed. Telemetry atrial fibrillation, controlled ventricular rate. Failed weaning trial yesterday, reattempting today. Bicarb 21, BUN 54, creatinine 3.21. Afebrile, WBC increased to 18. Continues on daptomycin, Zosyn, Levaquin, Eraxis. 11/13/2023 extubated yesterday, maintaining O2 sats in the 90s on 2 L nasal cannula. Pressures soft ,maintained on Levophed. Tolerating TPN with minimal to no residual. Confused, pulling at lines. Sputum culture reported stenotrophomonas. continues on Eraxis, daptomycin, Levaquin and Zosyn. Afebrile, WBC 15.1. Hemoglobin 7.1, platelets 419. BUN 54, creatinine 3.14. Objective - Vital Signs Vital signs: Vital Signs Temp 98.5 F 11/13/23 08:00 Pulse 97 11/13/23 15:00 Resp 14 11/13/23 15:00 BP 103/63 11/06/23 03:00 Pulse Ox 99 11/13/23 15:00 FiO2 35 11/12/23 08:54 Intake & Output 11/12/23 11/13/23 11/13/23 18:59 06:59 18:59 Intake Total 134.967 6005.125 845.989 Output Total 2390 1360 1830 Balance -1903.442 102.125 -984.011 Weight 95.1 kg 95.1 kg Intake: IV 461 606 387 Anidulafungin 100 mg In 100 100 Sodium Chloride 0.9% 100 ml @ 84 mls/hr IVPB DAILY [facility] Rx#:[id number] DAPTOmycin 500 mg In 50 Sodium Chloride 0.9% 50 ml @ 100 mls/hr IVPB Q48H [facility] [place] Rx#:[id number] KVO 125 120 60 Levofloxacin 250Mg-D5w 450 50 Pmx 250 mg In Dextrose/ Water 1 50ml.bag @ 50 mls /hr IVPB Q24H [facility] Rx#: [id number] Piperacillin-Tazobactam 3 200 100 .375 gm In Sodium Chloride 0.9% 100 ml @ 25 mls/hr IVPB Q8HR [facility] Rx# :[id number] Pressure lines 36 36 27 Intake, IV Titration 25.558 856.125 458.989 Amount Fat Emulsion 20% 250 ml @ 20.8 20.833 mls/hr IV MoFr [facility] Rx#:[id number] Mvi, Adult No.4 with Vit 182 K 10 ml Trace (Conc-1Ml/ Dose) 1 ml Sodium Acetate 40 meq Potassium Acetate 40 meq Calcium Gluconate 1.5 gm Magnesium Sulfate gm 1 gm In Amino Acids 5 %/Dextrose 20 % 1,000 ml @ 75 mls/hr IV .BY DURATION [facility] Rx#: [id number] Mvi, Adult No.4 with Vit 790.4 K 10 ml Trace (Conc-1Ml/ Dose) 1 ml Sodium Acetate 40 meq Potassium Chloride 40 meq Calcium Gluconate 1.5 gm Magnesium Sulfate gm 1 gm In Amino Acids 5 %/ Dextrose 20 % 1,000 ml @ 32 mls/hr IV .Q24H [facility] Rx #:[id number] Norepinephrine 4 mg In 25.558 65.725 256.189 Sodium Chloride 0.9% 250 ml @ 0.03 MCG/KG/MIN 9. 851 mls/hr IV .Q24H [facility] Rx#:[id number] Output: Gastric Drainage 50 Drainage 790 300 290 Abdomen 200 Right 590 300 290 Urine 1550 1060 1540 Other: Voiding Method Indwelling Catheter Indwelling Catheter Indwelling Catheter # Bowel Movements 1 1 ABP, PAP, CO, CI - Last Documented Arterial Blood Pressure 106/60 - Exam PHYSICAL EXAM: VITAL SIGNS: [As above] GENERAL: Sedated ,on 2 L nasal cannula HEENT: Normocephalic, atraumatic ,conjunctivae normal. Confused. NECK: Supple, no JVD. CARDIOVASCULAR: S1, S2 regular. Irregular, no murmur. RESPIRATION: Unlabored, equal air entry, fine bibasilar crackle ABDOMEN: Soft, nondistended, status post surgery, wound VAC, SANDY drain with purulent drainage, hypoactive LEGS: Bilateral lower extremities' Abhijeet wrap dressings clean dry and intact, NERVOUS SYSTEM: Limited;sedated. Skin: Warm and dry, no rash Microbiology 11/12/23 12:10 Other - Other Gram Stain - Preliminary 11/05/23 16:40 Blood Blood Culture - Final 11/05/23 20:30 Sputum Gram Stain - Final 11/05/23 20:30 Sputum Sputum Culture - Final Stenotrophomonas maltophilia Doreen albicans 11/03/23 15:15 Other - Other Anaerobic Culture - Final 11/03/23 15:10 Other - Other Anaerobic Culture - Final Doreen albicans 11/03/23 15:15 Other - Other Gram Stain - Final 11/03/23 15:15 Other - Other Wound Culture - Final Pseudomonas aeruginosa Morganella morganii Enterococcus faecalis 11/03/23 15:10 Other - Other Gram Stain - Final 11/03/23 15:10 Other - Other Wound Culture - Final Pseudomonas aeruginosa Methicillin resist S. aureus 10/29/23 17:45 Blood Blood Culture - Final 10/29/23 18:00 Blood Blood Culture - Final 10/29/23 20:33 Leg - Left Anaerobic Culture - Final 10/29/23 20:33 Leg - Left Gram Stain - Final 10/29/23 20:33 Leg - Left Wound Culture - Final Pseudomonas aeruginosa Enterococcus faecalis Methicillin resist S. aureus - Labs CBC & Chem 7: 11/13/23 04:40 11/13/23 04:40 Labs: Abnormal Lab Results - Last 24 Hours (Table) 11/13/23 11/13/23 Range/Units 04:40 04:40 WBC 15.1 H (3.8-10.6) k/uL RBC 2.78 L (4.30-5.90) m/uL Hgb 7.1 L (13.0-17.5) gm/dL Hct 24.1 L (39.0-53.0) % MCHC 29.6 L (31.0-37.0) g/dL RDW 23.3 H (11.5-15.5) % Neutrophils # 13.5 H (1.3-7.7) k/uL Lymphocytes # 0.6 L (1.0-4.8) k/uL Chloride 110 H (98-107) mmol/L BUN 54 H (9-20) mg/dL Creatinine 3.14 H (0.66-1.25) mg/dL Glucose 106 H (74-99) mg/dL Calcium 8.3 L (8.4-10.2) mg/dL Phosphorus 5.3 H (2.5-4.5) mg/dL Microbiology - Last 24 Hours (Table) 11/12/23 12:10 Gram Stain - Preliminary Other - Other Assessment and Plan Assessment: Sepsis secondary to infected bilateral lower extremity wounds, cellulitis, recent excisional debridement of left lower leg wound with skin substitute placement, excisional debridement of the left great toe wound and excisional debridement of the right lower leg wound x 2 on 10/03/[address] Inman , vascular surgery. Cultures currently growing Pseudomonas aeruginosa and Enterococcus faecalis and MRSA. Status post debridement with deep cultures 830 reporting Pseudomonas Morganelli, Enterococcus faecalis and MRSA Perforated peptic ulcer and pneumoperitoneum status post exploratory laparotomy with gastric ulcer repair, modified Jasvir patch on 11/05/2023 Acute hypoxic respiratory failure, mechanical ventilator dependent Hospital-acquired, bilateral pneumonia ;sputum culture reporting stenotro phomonas maltophilia, Doreen albicans Septic shock, requiring vasopressors Acute metabolic encephalopathy secondary to all the above Acute kidney injury, ATN secondary to sepsis, hypotension, stable. Metabolic acidosis secondary to the above, status post bicarb drip, improved History of Pseudomonas and VRE on last wound culture of left leg 10/03/2023, Lactic acidosis secondary to the above History of Left lower extremity skin dehiscence and wound infection,MSSA, status post excisional debridement and wound VAC. Left great toe ischemia status post excisional debridement History of left femoral tibial bypass secondary to critical limb ischemia History of aortic aneurysm with endovascular repair; Chronic Paroximal atrial fibrillation CAD, history of stent placement Essential hypertension Hyperlipidemia Nicotine dependence Daily alcohol use Noncompliance with medication regimen, patient is high risk for readmission. Iron deficient anemia Hypokalemia Hypomagnesemia Hyponatremia Plan: Continue current medication regimen, monitoring and symptomatic treatment. ICU management as per customer experience specialist .vascular surgery has been reconsulted regarding potential further debridement of right lower extremity. antibiotics as per ID .prognosis guarded given multiple complex medical issues. The impression and plan of care has been dictated as directed. : I performed a history and examination of this patient, discussed the same with the dictator. I agree with the dictator's note ,documented as a scribe. Any additional findings or plans will be noted.
[2023-11-13 18:06] LABS: Glucose,Whole Blood 110 mg/dL (70-110)
[2023-11-13] MEDS: CALCIUM GLUCONATE IV SCH (21:40)
[2023-11-13] MEDS: POTASSIUM ACETATE IV SCH (21:40)
[2023-11-13] MEDS: MAGNESIUM IV SCH (21:40)
[2023-11-13] MEDS: SODIUM ACETATE IV SCH (21:40)
[2023-11-13 23:27] LABS: Glucose,Whole Blood 147 mg/dL (70-110)
[2023-11-14] MEDS ORDERED: MVI, ADULT NO.4 WITH VIT K 10 ML, TRACE (CONC-1ML/DOSE) 1 ML, SODIUM ACETATE 40 MEQ, PO... IV SCH (01:00)
[2023-11-14 05:25] LABS: Anisocytosis Moderate; Basophils % (A) 0 %; Eosinophils # (A) 0.2 k/uL (0-0.7); Eosinophils % (A) 1 %; HCT 23.6 % (39.0-53.0); Hypochromasia Marked; Lymphocytes # (A) 0.6 k/uL (1.0-4.8); Lymphocytes % (A) 4 %; MCH 25.8 pg (25.0-35.0); MCHC 29.7 g/dL (31.0-37.0); MCV 86.9 fL (80.0-100.0); Mean Platelet Volume 8.8; Microcytosis Slight; Monocytes # (A) 0.5 k/uL (0-1.0); Monocytes % (A) 3 %; Neutrophils # (A) 13.6 k/uL (1.3-7.7); Neutrophils % (A) 90 %; Platelet Count 398 k/uL (150-450); RBC 2.72 m/uL (4.30-5.90); RDW 23.3 % (11.5-15.5); WBC 15.1 k/uL (3.8-10.6)
[2023-11-14 05:39] LABS: Potassium 3.4 mmol/L (3.5-5.1); Sodium 135 mmol/L (137-145)
[2023-11-14 05:40] LABS: African American GFR (CKD) 28 (>60 ml/min/1.73 sqM); Anion Gap 7 mmol/L; Blood Urea Nitrogen 52 mg/dL (9-20); Calcium 8.5 mg/dL (8.4-10.2); Carbon Dioxide 25 mmol/L (22-30); Chloride 103 mmol/L (98-107); Glucose 122 mg/dL (74-99); Magnesium 1.9 mg/dL (1.6-2.3); Non-African American GFR(CKD) 24 (>60 ml/min/1.73 sqM); Phosphorus 3.5 mg/dL (2.5-4.5)
[2023-11-14 06:44] LABS: Glucose,Whole Blood 130 mg/dL (70-110)
[2023-11-14] MEDS: POTASSIUM CHLORIDE 20 MEQ in WATER FOR INJECTION 1 100ML.BAG IVPB SCH (06:57)
--- NOTE | 2023-11-14 10:58 | P.PN ---
Subjective Progress Note Date: 11/14/23 CHIEF COMPLAINT: Perforated gastric ulcer HISTORY OF PRESENT ILLNESS: patient is postop day #9 status post repair of perforated gastric ulcer. Patient's SANDY drain with bile noted. SANDY drain output 250 mL. Afebrile. Patient is currently in restraints and has bedside sitter. He is still on Levophed. WBC same at 15.1 Patient seen and examined with Dr. Gracia PHYSICAL EXAM: VITAL SIGNS: Reviewed. GENERAL: No acute distress. ABDOMEN: Soft. nondistended. Tender with palpation. wound VAC intact with serosanguineous ascites fluid. SANDY drain with bile ASSESSMENT: 1. Perforated gastric ulcer 2. Sepsis and septic shock 3. History of alcoholism 4. Severe protein calorie malnutrition 5. Bile leak PLAN: -Continue to monitor SANDY drain output for bile leak. Have nursing staff place SANDY drain to wall suction -Continue to monitor -Continue TPN for nutrition support -continue ICU management -Continue supportive care -Antibiotics per ID service -Continue IV Protonix Physician Wrapping Machine Helper note has been reviewed by physician. Signing provider agrees with the documented findings, assessment, and plan of care. Objective - Vital Signs Vital signs: Vital Signs Temp 97.6 F 11/14/23 08:00 Pulse 87 11/14/23 10:30 Resp 14 11/14/23 10:30 BP 103/63 11/06/23 03:00 Pulse Ox 100 11/14/23 10:30 FiO2 35 11/12/23 08:54 Intake & Output 11/13/23 11/14/23 11/14/23 18:59 06:59 18:59 Intake Total 2469.777 6218.698 615.343 Output Total 3175 1935 720 Balance -1282.114 -538.302 -104.657 Weight 95.1 kg 89 kg Intake: IV 516 279 214 Anidulafungin 100 mg In 100 100 Sodium Chloride 0.9% 100 ml @ 84 mls/hr IVPB DAILY [facility] Rx#:[id number] DAPTOmycin 500 mg In 50 Sodium Chloride 0.9% 50 ml @ 100 mls/hr IVPB Q48H [facility] Rx#:[id number] KVO 80 90 5 Levofloxacin 250Mg-D5w 50 50 Pmx 250 mg In Dextrose/ Water 1 50ml.bag @ 50 mls /hr IVPB Q24H [facility] Rx#: [id number] Piperacillin-Tazobactam 3 200 100 100 .375 gm In Sodium Chloride 0.9% 100 ml @ 25 mls/hr IVPB Q8HR [facility] Rx# :[id number] Pressure lines 36 39 9 Intake, IV Titration 239.309 6048.698 401.343 Amount Fat Emulsion 20% 250 ml @ 83.2 124.8 20.833 mls/hr IV MoFr [facility] Rx#:[id number] Mvi, Adult No.4 with Vit 407 300 K 10 ml Trace (Conc-1Ml/ Dose) 1 ml Sodium Acetate 40 meq Potassium Acetate 40 meq Calcium Gluconate 1.5 gm Magnesium Sulfate gm 1 gm In Amino Acids 5 %/Dextrose 20 % 1,000 ml @ 75 mls/hr IV .BY DURATION [facility] Rx#: [id number] Norepinephrine 4 mg In 296.686 17.898 76.343 Sodium Chloride 0.9% 250 ml @ 0.03 MCG/KG/MIN 9. 851 mls/hr IV .Q24H [facility] Rx#:[id number] Potassium Chloride 20 meq 100 In Water For Injection 1 100ml.bag @ 50 mls/hr IVPB Q2H [facility] Rx#: [id number] Sodium Acetate 40 meq 675 225 Potassium Acetate 40 meq Calcium Gluconate 1.5 gm Magnesium Sulfate gm 1 gm In Amino Acids 5 %/ Dextrose 20 % 1,000 ml @ 75 mls/hr IV .BY DURATION [facility] Rx#:[id number] Output: Gastric Drainage 30 Drainage 390 430 100 Right 390 430 100 Urine 2165 1505 620 Other: Voiding Method Indwelling Catheter Indwelling Catheter # Bowel Movements 1 1 ABP, PAP, CO, CI - Last Documented Arterial Blood Pressure 118/62 - Labs CBC & Chem 7: 11/14/23 04:45 11/14/23 04:45 Labs: Abnormal Lab Results - Last 24 Hours (Table) 11/13/23 11/14/23 11/14/23 Range/Units 23:25 04:45 04:45 WBC 15.1 H (3.8-10.6) k/uL RBC 2.72 L (4.30-5.90) m/uL Hgb 7.0 L (13.0-17.5) gm/dL Hct 23.6 L (39.0-53.0) % MCHC 29.7 L (31.0-37.0) g/dL RDW 23.3 H (11.5-15.5) % Neutrophils # 13.6 H (1.3-7.7) k/uL Lymphocytes # 0.6 L (1.0-4.8) k/uL Sodium 135 L (137-145) mmol/L Potassium 3.4 L (3.5-5.1) mmol/L BUN 52 H (9-20) mg/dL Creatinine 2.70 H (0.66-1.25) mg/dL Glucose 122 H (74-99) mg/dL POC Glucose (mg/dL) 147 H (70-110) mg/dL 11/14/23 Range/Units 06:42 WBC (3.8-10.6) k/uL RBC (4.30-5.90) m/uL Hgb (13.0-17.5) gm/dL Hct (39.0-53.0) % MCHC (31.0-37.0) g/dL RDW (11.5-15.5) % Neutrophils # (1.3-7.7) k/uL Lymphocytes # (1.0-4.8) k/uL Sodium (137-145) mmol/L Potassium (3.5-5.1) mmol/L BUN (9-20) mg/dL Creatinine (0.66-1.25) mg/dL Glucose (74-99) mg/dL POC Glucose (mg/dL) 130 H (70-110) mg/dL Microbiology - Last 24 Hours (Table) 11/12/23 12:10 Gram Stain - Preliminary Other - Other Wound Culture - Preliminary Enterococcus faecium
--- NOTE | 2023-11-14 11:03 | P.PN ---
Subjective Patient is seen in follow-up for acute kidney injury. Renal function improved. Nonoliguric. On IV Lasix. On Levophed. Receiving TPN. Vital signs are stable. On Levophed. General: No acute distress. HEENT: NG tube noted. On nasal cannula. LUNGS: No audible rhonchi or wheezes. HEART: Rate and Rhythm are regular. ABDOMEN: No distention. EXTREMITITES: Lower extremities wrapped. No drainage. 2+ edema. Objective - Vital Signs Vital signs: Vital Signs Temp 97.6 F 11/14/23 08:00 Pulse 87 11/14/23 10:30 Resp 14 11/14/23 10:30 BP 103/63 11/06/23 03:00 Pulse Ox 100 11/14/23 10:30 FiO2 35 11/12/23 08:54 Intake & Output 11/13/23 11/14/23 11/14/23 18:59 06:59 18:59 Intake Total 1198.197 7564.698 615.343 Output Total 2585 1935 720 Balance -1282.114 -538.302 -104.657 Weight 95.1 kg 89 kg Intake: IV 516 279 214 Anidulafungin 100 mg In 100 100 Sodium Chloride 0.9% 100 ml @ 84 mls/hr IVPB DAILY [facility] Rx#:[id number] DAPTOmycin 500 mg In 50 Sodium Chloride 0.9% 50 ml @ 100 mls/hr IVPB Q48H [facility] Rx#:[id number] KVO 80 90 5 Levofloxacin 250Mg-D5w 50 50 Pmx 250 mg In Dextrose/ Water 1 50ml.bag @ 50 mls /hr IVPB Q24H [facility] Rx#: [id number] Piperacillin-Tazobactam 3 200 100 100 .375 gm In Sodium Chloride 0.9% 100 ml @ 25 mls/hr IVPB Q8HR [facility] Rx# :[id number] Pressure lines 36 39 9 Intake, IV Titration 879.967 4682.698 401.343 Amount Fat Emulsion 20% 250 ml @ 83.2 124.8 20.833 mls/hr IV MoFr [facility] Rx#:[id number] Mvi, Adult No.4 with Vit 407 300 K 10 ml Trace (Conc-1Ml/ Dose) 1 ml Sodium Acetate 40 meq Potassium Acetate 40 meq Calcium Gluconate 1.5 gm Magnesium Sulfate gm 1 gm In Amino Acids 5 %/Dextrose 20 % 1,000 ml @ 75 mls/hr IV .BY DURATION [facility] Rx#: [id number] Norepinephrine 4 mg In 296.686 17.898 76.343 Sodium Chloride 0.9% 250 ml @ 0.03 MCG/KG/MIN 9. 851 mls/hr IV .Q24H [facility] Rx#:[id number] Potassium Chloride 20 meq 100 In Water For Injection 1 100ml.bag @ 50 mls/hr IVPB Q2H [facility] Rx#: [id number] Sodium Acetate 40 meq 675 225 Potassium Acetate 40 meq Calcium Gluconate 1.5 gm Magnesium Sulfate gm 1 gm In Amino Acids 5 %/ Dextrose 20 % 1,000 ml @ 75 mls/hr IV .BY DURATION [facility] Rx#:[id number] Output: Gastric Drainage 30 Drainage 390 430 100 Right 390 430 100 Urine 2165 1505 620 Other: Voiding Method Indwelling Catheter Indwelling Catheter # Bowel Movements 1 1 ABP, PAP, CO, CI - Last Documented Arterial Blood Pressure 118/62 - Labs CBC & Chem 7: 11/14/23 04:45 11/14/23 04:45 Labs: Abnormal Lab Results - Last 24 Hours (Table) 11/13/23 11/14/23 11/14/23 Range/Units 23:25 04:45 04:45 WBC 15.1 H (3.8-10.6) k/uL RBC 2.72 L (4.30-5.90) m/uL Hgb 7.0 L (13.0-17.5) gm/dL Hct 23.6 L (39.0-53.0) % MCHC 29.7 L (31.0-37.0) g/dL RDW 23.3 H (11.5-15.5) % Neutrophils # 13.6 H (1.3-7.7) k/uL Lymphocytes # 0.6 L (1.0-4.8) k/uL Sodium 135 L (137-145) mmol/L Potassium 3.4 L (3.5-5.1) mmol/L BUN 52 H (9-20) mg/dL Creatinine 2.70 H (0.66-1.25) mg/dL Glucose 122 H (74-99) mg/dL POC Glucose (mg/dL) 147 H (70-110) mg/dL 11/14/23 Range/Units 06:42 WBC (3.8-10.6) k/uL RBC (4.30-5.90) m/uL Hgb (13.0-17.5) gm/dL Hct (39.0-53.0) % MCHC (31.0-37.0) g/dL RDW (11.5-15.5) % Neutrophils # (1.3-7.7) k/uL Lymphocytes # (1.0-4.8) k/uL Sodium (137-145) mmol/L Potassium (3.5-5.1) mmol/L BUN (9-20) mg/dL Creatinine (0.66-1.25) mg/dL Glucose (74-99) mg/dL POC Glucose (mg/dL) 130 H (70-110) mg/dL Microbiology - Last 24 Hours (Table) 11/12/23 12:10 Gram Stain - Preliminary Other - Other Wound Culture - Preliminary Enterococcus faecium Assessment and Plan Plan: Assessment: 1. Acute kidney injury secondary to ATN secondary to septic shock. No hydronephrosis noted on CAT scan. Baseline creatinine near 1 and peaked at 3.32 this admission -2.7 today. Nonoliguric. 2. Septic shock secondary to perforated viscus and lower extremity wounds. 3. Metabolic acidosis secondary to acute kidney injury. Improved. 4. Volume overload. 5. Hyperphosphatemia secondary to acute kidney injury. Resolved. 6. Anemia. Avoid IV iron in the setting of acute infection. On Aranesp. 7. Hypokalemia from diuresis. Replaced. Plan: TPN per surgery. Maintain IV Lasix. Wean Levophed. Continue to monitor renal function and urine output.
--- NOTE | 2023-11-14 11:11 | P.PN ---
Subjective Progress Note Date: 11/14/23 Principal diagnosis: Bilateral lower extremity wounds Seen and examined today as a follow-up for lower extremity wounds. Patient was being followed by vascular surgery previously in this admission and underwent lower extremity surgical excisional debridement. Following his debridement he had a perforated ulcer which required surgical repair. Following surgical repair patient had remained sedated and intubated for quite some time as he was not responding to his sedation holidays. He still is requiring small amount of pressors. He still remains quite confused. Vascular surgery was asked to see patient again regarding his lower extremity wounds. Objective - Vital Signs Vital signs: Vital Signs Temp 98.1 F 11/14/23 00:00 Pulse 97 11/14/23 07:00 Resp 12 11/14/23 07:00 BP 103/63 11/06/23 03:00 Pulse Ox 99 11/14/23 07:00 FiO2 35 11/12/23 08:54 Intake & Output 11/13/23 11/14/23 11/14/23 18:59 06:59 18:59 Intake Total 4530.091 6481.698 55.163 Output Total 2585 1935 Balance -1282.114 -538.302 55.163 Weight 95.1 kg 89 kg Intake: IV 516 279 Anidulafungin 100 mg In 100 Sodium Chloride 0.9% 100 ml @ 84 mls/hr IVPB DAILY [facility] Rx#:[id number] DAPTOmycin 500 mg In 50 Sodium Chloride 0.9% 50 ml @ 100 mls/hr IVPB Q48H [facility] Rx#:[id number] KVO 80 90 Levofloxacin 250Mg-D5w 50 50 Pmx 250 mg In Dextrose/ Water 1 50ml.bag @ 50 mls /hr IVPB Q24H [facility] Rx#: [id number] Piperacillin-Tazobactam 3 200 100 .375 gm In Sodium Chloride 0.9% 100 ml @ 25 mls/hr IVPB Q8HR [facility] Rx# :[id number] Pressure lines 36 39 Intake, IV Titration 578.925 1198.698 55.163 Amount Fat Emulsion 20% 250 ml @ 83.2 124.8 20.833 mls/hr IV MoFr [facility] Rx#:[id number] Mvi, Adult No.4 with Vit 407 300 K 10 ml Trace (Conc-1Ml/ Dose) 1 ml Sodium Acetate 40 meq Potassium Acetate 40 meq Calcium Gluconate 1.5 gm Magnesium Sulfate gm 1 gm In Amino Acids 5 %/Dextrose 20 % 1,000 ml @ 75 mls/hr IV .BY DURATION [facility], [facility] Rx#: [id number] Norepinephrine 4 mg In 296.686 17.898 55.163 Sodium Chloride 0.9% 250 ml @ 0.03 MCG/KG/MIN 9. 851 mls/hr IV .Q24H [facility] Rx#:[id number] Sodium Acetate 40 meq 675 Potassium Acetate 40 meq Calcium Gluconate 1.5 gm Magnesium Sulfate gm 1 gm In Amino Acids 5 %/ Dextrose 20 % 1,000 ml @ 75 mls/hr IV .BY DURATION [facility], [facility] Rx#:[id number] Output: Gastric Drainage 30 Drainage 390 430 Right 390 430 Urine 2165 1505 Other: Voiding Method Indwelling Catheter Indwelling Catheter # Bowel Movements 1 1 ABP, PAP, CO, CI - Last Documented Arterial Blood Pressure 87/39 - Exam General appearance: The patient is awake, alert, not oriented and confused. HET: Head is normocephalic and atraumatic. Neck: Supple. Heart: Regular. Lungs: Equal expansion, mechanical ventilation. Abdomen: Soft, nontender, nondistended. Extremities: Lower extremity edema improved. Lower extremity wound previous debridement site healing with granulation. Right lower extremity wounds with nonviable tissue. right lower extremity with PT Doppler signal and left with PT and DP signals. Feet are warm and dry with good capillary refill. Neurological: Awake and alert, confused. In soft restraints with a sitter at bedside. - Labs CBC & Chem 7: 11/14/23 04:45 11/14/23 04:45 Labs: Abnormal Lab Results - Last 24 Hours (Table) 11/13/23 11/14/23 11/14/23 Range/Units 23:25 04:45 04:45 WBC 15.1 H (3.8-10.6) k/uL RBC 2.72 L (4.30-5.90) m/uL Hgb 7.0 L (13.0-17.5) gm/dL Hct 23.6 L (39.0-53.0) % MCHC 29.7 L (31.0-37.0) g/dL RDW 23.3 H (11.5-15.5) % Neutrophils # 13.6 H (1.3-7.7) k/uL Lymphocytes # 0.6 L (1.0-4.8) k/uL Sodium 135 L (137-145) mmol/L Potassium 3.4 L (3.5-5.1) mmol/L BUN 52 H (9-20) mg/dL Creatinine 2.70 H (0.66-1.25) mg/dL Glucose 122 H (74-99) mg/dL POC Glucose (mg/dL) 147 H (70-110) mg/dL 11/14/23 Range/Units 06:42 WBC (3.8-10.6) k/uL RBC (4.30-5.90) m/uL Hgb (13.0-17.5) gm/dL Hct (39.0-53.0) % MCHC (31.0-37.0) g/dL RDW (11.5-15.5) % Neutrophils # (1.3-7.7) k/uL Lymphocytes # (1.0-4.8) k/uL Sodium (137-145) mmol/L Potassium (3.5-5.1) mmol/L BUN (9-20) mg/dL Creatinine (0.66-1.25) mg/dL Glucose (74-99) mg/dL POC Glucose (mg/dL) 130 H (70-110) mg/dL Microbiology - Last 24 Hours (Table) 11/12/23 12:10 Gram Stain - Preliminary Other - Other Wound Culture - Preliminary Enterococcus faecium Assessment and Plan Assessment: 1. Bilateral lower extremity wound status postdebridement 2. Perforated gastric ulcer status post repair 3. Acute ventilatory dependent respiratory failure, improved 4. Hypotensive requiring pressors 5. Altered mental status Plan: 1. Continue with ICU supportive care. 2. Continue lower extremity local wound care daily 3. No plans at this time for surgical debridement. Previous angiogram reviewed and patient likely would benefit from right lower extremity SFA revascularization once patient is more stable. No plans at this time for surgical debridement. Continue local wound care we will continue to follow along. The impression and plan of care has been dictated as directed. Dr. Inman I performed a history and examination of this patient, discussed the same with the dictator. I agree with the dictator's note ,documented as a scribe. Any additional findings or plans will be noted.
[2023-11-14 11:36] LABS: Glucose,Whole Blood 129 mg/dL (70-110)
--- NOTE | 2023-11-14 14:11 | P.PN ---
Subjective Progress Note Date: 11/14/23 Principal diagnosis: Perforated gastric ulcer with acute pneumoperitoneum and severe cellulitis of lower extremities with polymicrobial infection Patient is a 63-year-old white male with past medical history significant for chronic bilateral lower extremity wounds with multiple previous debridements, peripheral vascular disease, recent femoropopliteal artery bypass, AAA, coronary artery disease, hyperlipidemia, hypertension, and tobacco dependence. He is currently intubated to the mechanical ventilator in the intensive care unit, and unable to provide any information for HPI. Apparently, he presented to the emergency department on 10/29/2023 with his lower extremity wounds and suspected cellulitis/sepsis. He follows with vascular surgery. On 11/03/2023 he did under go debridement of his bilateral lower extremity wounds. Wound cultures positive for polymicrobial organisms including Pseudomonas aeruginosa, MRSA, Enterococcus faecalis. Antibiotics are being directed by infectious disease. Yesterday, on 11/05/2023 the patient was having some abdominal pain and issues with hypotension. A rapid response was called. CT of the abdomen and pelvis without contrast demonstrated a pneumoperitoneum. Patient was then taken to the operating room yesterday evening for an exploratory laparotomy, was found to have a perforated gastric ulcer; subsequently underwent repair with a modified Jasvir patch. Patient was transferred back to the intensive care unit in criti nerissa condition. Currently, patient is being evaluated in the intensive care unit intubated to the mechanical ventilator. Most recent ABGs consistent with profound metabolic acidosis. PaO2 327, pCO2 45, pH of 7.12. He was given 3 A of sodium bicarbonate. Current ventilator settings include assist-control, respiratory rate 16, tidal volume 450, FiO2 50%, and PEEP of 5. Chest x-ray, showing the tip of the endotracheal tube in a proximal position, approximately 9 cm above the prince. Nasogastric tube within the stomach. There is a left- sided pleural effusion. Dr. Crystal previously had the endotracheal tube advanced 3 cm. Patient is currently sedated on propofol which is infusing at 25 mc g/kg/min. He is synchronous with mechanical ventilator. Remains hypotensive, currently requiring vasopressors in the form of norepinephrine which is infusing at 0.1 mcg/kg/min. Postoperatively, the patient was fluid resuscitated with a total of 2 L crystalloid fluid. Lactated Ringer's also infusing at 125 mL/h. CVP is reading 8 mmHg. Patient has remained anuric. Heart rhythm appears atrial fibrillation with controlled ventricular response ranging from 80 to 90 bpm. Patient does have history of A-fib, not on any anticoagulation currently. Patient's abdominal incision has a wound VAC, and there is a compressed SANDY drain that is drained a total of 510 mL of serosanguineous output since surgery. Patient is currently covered on a combination of Zosyn, daptomycin, and Eraxis, which are being directed by infectious disease. Currently, hypothermic with external warming blanket on. Postoperative CBC: WBC count 31.8, hemoglobin 9.4, hematocrit 32.7, platelets 647. Postoperative BMP: Sodium 135, potassium 4.2, chloride 112, serum bicarb 12, BUN 53, creatinine 2.46, glucose 120. Overall, prognosis is guarded. On 11/07/2023, the patient is being seen for a follow-up. The patient remains intubated on the mechanical ventilator. This morning, the patient is sedated on propofol which is running at 40 mcg/kg/min. The patient remains intubated on mechanical ventilator on assist-control mode rate of 16, tidal volume of 450, FiO2 of 35% with a PEEP of 5. Chest x-ray shows consolidation of the lung bases more so on the left. ET tube is in good location. The patient also has an NG tube in place. The blood gas showed a pH of 7.42 with a pCO2 of 31 and pO2 of 87. No significant extra secretion the patient is currently intubated by #8 orotracheal tube. Hemodynamically, the patient remains on low-dose norepinephrine which is running at 0.05 mcg/kg/min. The patient is on a bicarb infusion running at 125 cc an hour. Output from the SANDY drain is quite extensive approximately 500 cc of serous material over the past 8 hours. The patient remains on the same antibiotic coverage and this includes Zosyn, daptomycin and Eraxis. On today's evaluation, the patient's white cell count is at 21 with a hemoglobin 7.1 and a platelet count of 477. BUN is 53 with a creatinine of 2.8 and a sodium levels at 137. The potassium levels of 3.3. Serum bicarb is at 20. Cultures from the wound is positive for Pseudomonas aeruginosa, Morganella and Enterococcus faecalis. Sputum sample is still negative for the time being. The patient is afebrile. The wounds in the lower extremity are appropriately dressed. Noted the patient has undergone multiple previous debridements of the lower extremity wounds. He is known to have severe PAD vascular disease. He is status post femoropopliteal bypass surgery. He is also known to have abdominal aortic aneurysm status post endovascular grafting along with coronary artery disease and hypertension hyperlipidemia. The patient is also status post gastric perforation with pneumoperitoneum requiring immediate surgical interventionAnd the patient has undergone exploratory laparotomy and repair of the perforated gastric ulcer with a modified Jasvir patch technique. Surgery was done on 11/05/2023 and the patient is currently postop day #2. He remains n.p.o. for now. On today's evaluation of 11/08/2023, the patient is being seen for a follow-up. Noted this morning, the patient remains sedated on propofol which is running at 40 mcg/kg/min. The patient was given a sedation holiday which she essentially failed. He did not recover his mentation and the patient was essentially thrashing and becoming asynchronous with mechanical ventilator and the trial was aborted. As such, the patient was kept on mechanical ventilator and earlier this morning the patient was on assist-control mode at rate of 16, tidal volume of 450, FiO2 of 35% with a PEEP of 5. Chest x-ray remains unchanged and the patient has consolidation lower lungs bilaterally and possibly some underlying pleural effusions. Blood gas showed a pH of 7.47 with a pCO2 of 33 and pO2 of 145. The patient remains in atrial fibrillation. The patient remains on pressors and norepinephrine is running at 0.03 mcg/kg/min. The patient remains NPO. Output from the NG tube is minimal at this point in time. Output from the SANDY drain was noted and it is in the order of 1.2 L of serous material over the past 24 hours. The surgical wound site is dry clean and intact. Wound VAC is also in place. The overall fluid balance over the past 24 hours is positive for 0.4 L. This sputum sample is positive for stenotrophomonas and Doreen. The current antibiotic coverage includes a combination of Eraxis, daptomycin and Zosyn. Blood work from today shows a WBC count of 12.8, hemoglobin of 7 and a platelet count of 316. BUN is 52 with a creatinine of 3.07 and a sodium levels at 137 and potassium level is at 3.9. Calcium level is low at 6.4. Phosphorus level is at 5.1. Triglycerides at 174. Patient is afebrile. The patient is currently postop day #3 following a repair of a perforated gastric ulcer with a modified Jasvir patch technique. Surgery was done on 11/05/2023. 11/09/2023, the patient is being seen for a follow-up. The patient remains intubated on the mechanical ventilator. Several attempt to wean the patient off sedation. That the patient was encephalopathic and thrashing and was not following any commands. Based on that, the patient was kept on propofol and this morning the patient is on propofol running at 40 mcg/kg/min. Possibility of encephalopathy with rates metabolic encephalopathy, drug encephalopathy, uremic/hepatic encephalopathy is to be considered. Possibility of an acute CVA in the setting of chronic atrial fibrillation cannot be completely ruled out. The patient is currently on a mechanical ventilator assist-control mode with a rate of 16, tidal volume of 450, FiO2 35% with a PEEP of 5. Blood gas showed a pH of 7.42 pCO2 pO2 of 139. The sputum sample was positive for stenotrophomonas and Levaquin was also added. The patient has no major respiratory secretions. Chest x-ray shows bilateral lower lobe consolidation/effusion. Hemodynamically, the patient is on no pressors. The SANDY drain is still draining approximately a liter of serosanguineous material on a daily basis and the wound VAC is still in place and the patient was started on TPN for nutritional support. Antibiotic coverage includes a combination of Zosyn, Eraxis and vancomycin. Patient is also suffering from an acute kidney injury. Creatinine is on the rise and this morning creatinine is at 3.27 with a BUN of 54. Sodium levels of 137, potassium of 4.2, LFTs are normal, albumin is at 1.9 with a total protein of 4.7. WBC count is at 15.4 with a hemoglobin of 7.2 and a platelet count of 315. Cardiac rhythm is atrial fibrillation with a controlled rate. 11/10/2023, the patient is being seen for a follow-up. Remains intubated on the mechanical ventilator. Based on underlying encephalopathy/delirium, the patient was given a CAT scan of the brain that showed no acute abnormalities. Ammonia level was also not elevated. Another sedation holiday will be given. The patient was taken off sedation this morning and did not return to being monitored. Meanwhile, the patient remains on mechanical ventilator. The patient on assist-control mode rate of 16, tidal volume of 450, FiO2 35% and PEEP of 5. Antibiotic coverage remains unchanged. Follow-up chest x-ray from today shows some limited improvement in the lower lobe consolidation bilaterally. The patient is on Levaquin regarding stenotrophomonas in the sputum. Rest of the antibiotic coverage is unchanged compared to yesterday as the patient remains on a combination of Zosyn, Eraxis and daptomycin. The patient is still producing serosanguineous fluid from the SANDY drain in order of 1 L over the past 24 hours. He is on low-dose norepinephrine running at 0.02 mcg/kg/min. In terms of blood work, the ABGs from today shows a pH of 7.41 with a pCO2 of 36 and a pO2 of 134. The white cell count is 18 with a hemoglobin of 7.9 and a platelet count of 293. BUN is 54 with a creatinine of 3.2 and a sodium levels at 136 and a potassium level is at 4.2. Fluid balance over the past 24 hours has been -1.7 L. The patient is producing adequate amount of urine output at this point in time. The patient is also on TPN for nutritional support. NG tube is in place and there are no signs of any active bleeding. Blood sugars at 94. On 11/11/2023, the patient is being seen for a follow-up. Remains intubated on the mechanical ventilator. Noted the patient was given a sedation holiday that lasted for several hours. During that time, the patient remained calm with occasional agitation. No significant recovery in the level of alertness and the patient remained encephalopathic. Ultimately, he became apneic and the sedation holiday was discontinued. Noted while having the sedation holiday yesterday, the patient was on a pressure support mode of mechanical ventilation. This morning, the patient is back on propofol which is running at 35 mcg/kg/min. He is on assist-control mode rate of 16, tidal volume of 500, FiO2 of 35% with a PEEP of 5. Blood gas showed a pH of 7.4 with a pCO2 of 37 and a pO2 of 125. Chest x-ray findings are essentially stable. There is interval clearing of the lower lobe pulmonary infiltrates and there is probably a left-sided pleural effusion. Orotracheal tubes are in good location. The white cell count of 17.6 with a hemoglobin of 7.6 and a platelet count of 315. Rest of the electrolytes show a BUN of 54 with a creatinine of 3.3 and the creatinine is stable compared to yesterday. BUN is 54. Serum bicarbonate 21 with a sodium levels of 137. The patient is afebrile. The patient is minimal amount of norepinephrine which is running at 0.01 mcg/kg/min. The patient receiving TPN for nutritional support. The overall fluid balance is 0 over the past 24 hours. No other significant events otherwise for now. SANDY drain output is more than 500 cc over the past 24 hours. Surgical wound site over the abdomen is dry clean and intact. NG output is minimal at this point in time. 11/12/2023, the patient is being seen for a follow-up. The patient has been off sedation since yesterday. The patient also tolerated a prolonged spontaneous breathing trial with a pressure support of 7 and a PEEP of 5 yesterday. Nevertheless, he was not extubated overnight and the patient was kept on mechanical ventilator and placed on assist-control. This morning, he remains off sedation. He is following some simple commands although his response is not distant. He remains on the mechanical ventilator assist-control mode with rate of 16, tidal volume of 450, FiO2 35% with a PEEP of 5. pH is at 7.37 with a pCO2 of 41 and a pO2 of 136. The patient is on minimal amount of pressors with norepinephrine running at 0.01 mcg/kg/min. Chest x-ray shows limited infiltration of the lung base bilaterally. TPN is running at a rate of 32. Output from the NG is minimal. SANDY drain is produced less than 500 cc overnight. Output is greenish and clinical needs to be cultured. The white cell count of 15.7, hemoglobin is at 7.1 with a platelet count of 314. BUN is 54 with a creatinine of 3.2 and a sodium low at 140 with a potassium level of 3.9. Antibiotic coverage remains unchanged. The patient remains on Levaquin, Eraxis, Zosyn, daptomycin. Patient was evaluated today on 11/13/2023 remains in the jake marginal at best. Patient remains on norepinephrine at 0.03 mcg/kg/min remains on TPN at 32 cc/h remains on 2 L nasal cannula, patient was extubated yesterday but remains extremely marginal at best. Mentation is borderline, patient is encephalopathic, could not carry on reasonable conversation with the patient, he seems to be confused. Remains on Eraxis daptomycin and Levaquin and Zosyn. Patient had a polymicrobial infection from his lower extremities and he may need more debridement specially on the right lower extremity, hence vascular surgery was reconsulted. Patient is going stenotrophomonas in the sputum and he is being followed by infectious disease, may need more debridement on his right lower extremity. Continues to have leukocytosis with WBC count of 15.1 hemoglobin is 7.1 basic metabolic profile is normal BUN is 54 creatinine 3.14 chest x-ray today showed bibasilar increased density consistent with atelectasis and/or infiltrate. Bibasilar Patient was reevaluated today on 11/14/2023, remains in the ICU, marginal at best. Still requiring norepinephrine at 0.02 mcg/kg/min patient is a very poor historian, he seems to be chronically ill, encephalopathic, follows simple instructions only like coughing and certain movements. Patient is on Eraxis, daptomycin, Levaquin and on Zosyn. Patient is supposed to have more debridement on his lower extremity cellulitis. This will be done by vascular surgery today. Patient is on TPN at 75 cc/h. Continues to have leukocytosis with WBC is 15.1 hemoglobin is 7 electrolytes are normal BUN is 52 creatinine 2.70, improving compared to the last few days. No chest x-ray was done today, however 1 was ordered to be done tomorrow Objective - Vital Signs Vital signs: Vital Signs Temp 97.6 F 11/14/23 08:00 Pulse 94 11/14/23 11:15 Resp 14 11/14/23 11:15 BP 103/63 11/06/23 03:00 Pulse Ox 100 11/14/23 11:15 FiO2 35 11/12/23 08:54 Intake & Output 11/13/23 11/14/23 11/14/23 18:59 06:59 18:59 Intake Total 4977.434 7582.698 698.343 Output Total 6805 1935 995 Balance -1282.114 -538.302 -296.657 Weight 95.1 kg 89 kg Intake: IV 516 279 222 Anidulafungin 100 mg In 100 100 Sodium Chloride 0.9% 100 ml @ 84 mls/hr IVPB DAILY [facility] Rx#:[id number] DAPTOmycin 500 mg In 50 Sodium Chloride 0.9% 50 ml @ 100 mls/hr IVPB Q48H [facility] Rx#:[id number] KVO 80 90 10 Levofloxacin 250Mg-D5w 50 50 Pmx 250 mg In Dextrose/ Water 1 50ml.bag @ 50 mls /hr IVPB Q24H [facility] Rx#: [id number] Piperacillin-Tazobactam 3 200 100 100 .375 gm In Sodium Chloride 0.9% 100 ml @ 25 mls/hr IVPB Q8HR [facility] Rx# :[id number] Pressure lines 36 39 12 Intake, IV Titration 538.216 5705.698 476.343 Amount Fat Emulsion 20% 250 ml @ 83.2 124.8 20.833 mls/hr IV MoFr [facility] Rx#:[id number] Mvi, Adult No.4 with Vit 407 300 K 10 ml Trace (Conc-1Ml/ Dose) 1 ml Sodium Acetate 40 meq Potassium Acetate 40 meq Calcium Gluconate 1.5 gm Magnesium Sulfate gm 1 gm In Amino Acids 5 %/Dextrose 20 % 1,000 ml @ 75 mls/hr IV .BY DURATION [facility] Rx#: [id number] Norepinephrine 4 mg In 296.686 17.898 76.343 Sodium Chloride 0.9% 250 ml @ 0.03 MCG/KG/MIN 9. 851 mls/hr IV .Q24H [facility] Rx#:[id number] Potassium Chloride 20 meq 100 In Water For Injection 1 100ml.bag @ 50 mls/hr IVPB Q2H [facility] Rx#: [id number] Sodium Acetate 40 meq 675 300 Potassium Acetate 40 meq Calcium Gluconate 1.5 gm Magnesium Sulfate gm 1 gm In Amino Acids 5 %/ Dextrose 20 % 1,000 ml @ 75 mls/hr IV .BY DURATION [facility] Rx#:[id number] Output: Gastric Drainage 30 Drainage 390 430 100 Right 390 430 100 Urine 2165 1505 895 Other: Voiding Method Indwelling Catheter Indwelling Catheter # Bowel Movements 1 1 ABP, PAP, CO, CI - Last Documented Arterial Blood Pressure 108/55 - Exam GENERAL EXAM: Revealed a 63-year-old white male looks frail, chronically ill, encephalopathic, on 2 L nasal cannula HEAD: Normocephalic and atraumatic EYES: Normal reaction of pupils, equal size. NOSE: Clear with pink turbinates. THROAT: No erythema or exudates. NECK: No masses, no JVD. Right IJ central line catheter in place. CHEST: No chest wall deformity. LUNGS: Symmetrical chest expansion, fine crackles at the bases no rhonchi no wheezes CVS: Distant S1-S2, no S3 gallop, irregular rhythm. ABDOMEN: Midline abdominal incision with wound VAC, SANDY drain compressed and draining purulent material abdomen is soft, bowel sounds hypoactive, no appreciated organomegaly. The patient has a SANDY drain in place. SKIN: Bilateral lower extremities wrapped in postoperative dressing/Abhijeet Kerlix wrap, both lower extremities were unwrapped, and I was able to visualize the significant cellulitis in both lower extremities, obviously the right lower extremity cellulitis needs to have further debridement and vascular surgery was reconsulted CENTRAL NERVOUS SYSTEM: Patient seems to be confused, encephalopathic, does not follow simple instructions. EXTREMITIES: As noted above significant cellulitis of both lower extremities, with skin changes suggestive of ischemic changes in the right lower extremity throughout. Will definitely need further debridement. - Labs CBC & Chem 7: 11/14/23 04:45 11/14/23 04:45 Labs: Abnormal Lab Results - Last 24 Hours (Table) 11/13/23 11/14/23 11/14/23 Range/Units 23:25 04:45 04:45 WBC 15.1 H (3.8-10.6) k/uL RBC 2.72 L (4.30-5.90) m/uL Hgb 7.0 L (13.0-17.5) gm/dL Hct 23.6 L (39.0-53.0) % MCHC 29.7 L (31.0-37.0) g/dL RDW 23.3 H (11.5-15.5) % Neutrophils # 13.6 H (1.3-7.7) k/uL Lymphocytes # 0.6 L (1.0-4.8) k/uL Sodium 135 L (137-145) mmol/L Potassium 3.4 L (3.5-5.1) mmol/L BUN 52 H (9-20) mg/dL Creatinine 2.70 H (0.66-1.25) mg/dL Glucose 122 H (74-99) mg/dL POC Glucose (mg/dL) 147 H (70-110) mg/dL 11/14/23 11/14/23 Range/Units 06:42 11:34 WBC (3.8-10.6) k/uL RBC (4.30-5.90) m/uL Hgb (13.0-17.5) gm/dL Hct (39.0-53.0) % MCHC (31.0-37.0) g/dL RDW (11.5-15.5) % Neutrophils # (1.3-7.7) k/uL Lymphocytes # (1.0-4.8) k/uL Sodium (137-145) mmol/L Potassium (3.5-5.1) mmol/L BUN (9-20) mg/dL Creatinine (0.66-1.25) mg/dL Glucose (74-99) mg/dL POC Glucose (mg/dL) 130 H 129 H (70-110) mg/dL Microbiology - Last 24 Hours (Table) 11/12/23 12:10 Gram Stain - Preliminary Other - Other Wound Culture - Preliminary Enterococcus faecium Assessment and Plan Assessment: Impression Acute hypoxic respiratory failure secondary to sepsis and septic shock related to severe cellulitis of both lower extremities and abdominal sepsis with perforated gastric ulcer and pneumoperitoneum requiring surgery as noted below. Perforated gastric ulcer and pneumoperitoneum, status post exploratory laparotomy with gastric ulcer repair with modified Jasvir patch on 11/05/2023, the patient is postop day #9 Bilateral hospital-acquired pneumonia patient is on multiple antibiotics. Septic shock with hypotension and shock, still requiring norepinephrine although the patient was extubated yesterday, but remains hemodynamically unstable. Sepsis and septic shock Severe nonanion gap metabolic acidosis, significantly improved. encephalopathy/delirium, acute metabolic encephalopathy Bilateral lower extremity wounds/cellulitis, status-post debridement on 11/03/2023. Wounds positive for polymicrobial organisms including Pseudomonas aeruginosa, MRSA, Enterococcus faecalis. Antibiotics being directed by infectious disease specialist Peripheral vascular disease, with recent history of femoral popliteal artery bypass on 06/06/2023, subsequently, developing wound infection and dehiscence, undergoing multiple excisional debridements since then. Atrial fibrillation with controlled ventricular response Normocytic, normochromic anemia Acute leukocytosis Acute kidney injury secondary to hypotension and ATN, nonoliguric and the p atient has a positive urine output. The patient remains nonoliguric, the creatinine remained stable for now. History of hypertension History of hyperlipidemia History of coronary artery disease with previous stent placement History of AAA with previous endovascular repair History of alcoholism Chronic ongoing tobacco dependence Recommendation: Patient remains critically ill and I plan to keep in the ICU Continue antibiotics, patient is now on multiple antibiotics as ordered by infectious disease on the case Vascular surgery to read his right lower extremity cellulitis sometime later this afternoon Continue TPN/nutritional support Continue hemodynamic support, patient is still requiring norepinephrine Continue strict I's and O's. Continue to monitor renal status on a daily basis Patient is critically ill., And his overall clinical status is marginal at best. Hence we will recommend that the patient remains in the ICU I have a very strong feeling that the patient may end up requiring reintubation mechanical ventilation mostly because of his multiple comorbidities and his overall enc ephalopathic status Continue GI DVT prophylaxis Critical care time is over 30 minutes Time with Patient: Greater than 30
--- NOTE | 2023-11-14 14:49 | P.PN ---
Subjective Progress Note Date: 11/13/23 Principal diagnosis: Reason for follow-up is bilateral lower extremity infected wounds and perforated peptic ulcer Patient is a 63-year-old male with a past medical history significant for hypertension hyperlipidemia coronary artery disease, PAD multiple vascular procedures including left femoral-tibial bypass and now has been dealing with the wound to the left lower extremity as well as wound to the right leg being managed in the outpatient setting by vascular surgery Center the hospital by the home care nurse concerning for worsening infection. Patient last wound culture positive for VRE and Pseudomonas. Patient is status post Sharp excisional debridement bilateral lower extremities along with cultures of the purulent material completed on 11/03/2023.Patient was taken to the OR 11/05/2023 found to have perforated gastric ulcer status post exploratory laparotomy repair of the perforated ulcer with modified Jasvir patch. On today's evaluation that is 11/13/2023, Patient is afebrile patient is currently on 2 L nasal cannula oxygen patient slightly lethargic restless not a very good historian no vomiting diarrhea or any other change reported by the nursing staff. Patient white count is 15.1, creatinine 3.14 Objective - Vital Signs Vital signs: Vital Signs Temp 97.9 F 11/13/23 20:00 Pulse 101 H 11/13/23 21:00 Resp 12 11/13/23 21:00 BP 103/63 11/06/23 03:00 Pulse Ox 100 11/13/23 21:00 FiO2 35 11/12/23 08:54 Intake & Output 11/13/23 11/13/23 11/14/23 06:59 18:59 06:59 Intake Total 9576.943 9239.886 361.4 Output Total 1360 2585 510 Balance 102.125 -1282.114 -148.6 Weight 95.1 kg 95.1 kg Intake: IV 606 516 74 Anidulafungin 100 mg In 100 Sodium Chloride 0.9% 100 ml @ 84 mls/hr IVPB DAILY [facility] Rx#:[id number] DAPTOmycin 500 mg In 50 Sodium Chloride 0.9% 50 ml @ 100 mls/hr IVPB Q48H [facility] Rx#:[id number] KVO 120 80 15 Levofloxacin 250Mg-D5w 450 50 50 Pmx 250 mg In Dextrose/ Water 1 50ml.bag @ 50 mls /hr IVPB Q24H [facility] Rx#: [id number] Piperacillin-Tazobactam 3 200 .375 gm In Sodium Chloride 0.9% 100 ml @ 25 mls/hr IVPB Q8HR [facility] Rx# :[id number] Pressure lines 36 36 9 Intake, IV Titration 856.125 786.886 287.4 Amount Fat Emulsion 20% 250 ml @ 83.2 62.4 20.833 mls/hr IV MoFr [facility] Rx#:[id number] Mvi, Adult No.4 with Vit 407 225 K 10 ml Trace (Conc-1Ml/ Dose) 1 ml Sodium Acetate 40 meq Potassium Acetate 40 meq Calcium Gluconate 1.5 gm Magnesium Sulfate gm 1 gm In Amino Acids 5 %/Dextrose 20 % 1,000 ml @ 75 mls/hr IV .BY DURATION [facility] Rx#: [id number] Mvi, Adult No.4 with Vit 790.4 K 10 ml Trace (Conc-1Ml/ Dose) 1 ml Sodium Acetate 40 meq Potassium Chloride 40 meq Calcium Gluconate 1.5 gm Magnesium Sulfate gm 1 gm In Amino Acids 5 %/ Dextrose 20 % 1,000 ml @ 32 mls/hr IV .Q24H [facility] Rx #:[id number] Norepinephrine 4 mg In 65.725 296.686 Sodium Chloride 0.9% 250 ml @ 0.03 MCG/KG/MIN 9. 851 mls/hr IV .Q24H [facility] Rx#:[id number] Output: Gastric Drainage 30 Drainage 300 390 100 Right 300 390 100 Urine 1060 2165 410 Other: Voiding Method Indwelling Catheter Indwelling Catheter # Bowel Movements 1 ABP, PAP, CO, CI - Last Documented Arterial Blood Pressure 100/53 - Exam GENERAL DESCRIPTION: Middle-age male lying in bed in no distress RESPIRATORY SYSTEM: Unlabored breathing , decreased breath sounds at bases HEART: S1 S2 regular rate and rhythm , ABDOMEN: Soft , mild distention EXTREMITIES: Bilateral lower extremity wounds are currently dressed - Labs CBC & Chem 7: 11/14/23 04:45 11/14/23 04:45 Labs: Abnormal Lab Results - Last 24 Hours (Table) 11/13/23 11/13/23 Range/Units 04:40 04:40 WBC 15.1 H (3.8-10.6) k/uL RBC 2.78 L (4.30-5.90) m/uL Hgb 7.1 L (13.0-17.5) gm/dL Hct 24.1 L (39.0-53.0) % MCHC 29.6 L (31.0-37.0) g/dL RDW 23.3 H (11.5-15.5) % Neutrophils # 13.5 H (1.3-7.7) k/uL Lymphocytes # 0.6 L (1.0-4.8) k/uL Chloride 110 H (98-107) mmol/L BUN 54 H (9-20) mg/dL Creatinine 3.14 H (0.66-1.25) mg/dL Glucose 106 H (74-99) mg/dL Calcium 8.3 L (8.4-10.2) mg/dL Phosphorus 5.3 H (2.5-4.5) mg/dL Microbiology - Last 24 Hours (Table) 11/12/23 12:10 Gram Stain - Preliminary Other - Other Wound Culture - Preliminary Enterococcus faecium Assessment and Plan (1) Bilateral lower leg cellulitis Current Visit: Yes Status: Acute Code(s): L03.116 - CELLULITIS OF LEFT LOWER LIMB; L03.115 - CELLULITIS OF RIGHT LOWER LIMB SNOMED Code(s): 839803789 (2) Open wound of both lower extremities Current Visit: Yes Status: Acute Code(s): S81.801A - UNSPECIFIED OPEN WOUND, RIGHT LOWER LEG, INITIAL ENCOUNTER; S81.802A - UNSPECIFIED OPEN WOUND, LEFT LOWER LEG, INITIAL ENCOUNTER SNOMED Code(s): 10131249 (3) Sepsis Current Visit: Yes Status: Acute Code(s): A41.9 - SEPSIS, UNSPECIFIED ORGANISM SNOMED Code(s): 48720876 (4) Pneumonia Current Visit: Yes Status: Acute Code(s): J18.9 - PNEUMONIA, UNSPECIFIED ORGANISM SNOMED Code(s): 188190323 Plan: 1patient presented to hospital with sepsis in this patient who did have a fever tachycardia elevated white count source is likely bilateral lower extremity wound and cellulitis with more extensive wound to the left lower extremity in this patient who did have a history of PAD and has multiple vascular procedure last wound culture done from the right leg has been Pseudomonas and VRE that was done on 10/03/2023, culture done this admission are growing Pseudomonas aeruginosa Enterococcus faecalis that is not VRE and MRSA 2patient is status post debridement and deep culture completed on 11/03/2023 which did grow multiple pathogen including Pseudomonas Morganella Enterococcus faecalis and MRSA 3patient did have a perforated peptic ulcer status post laparotomy and modified Jasvir patch 4-patient sputum is growing stenotrophomonas concerning for gram-negative pneumonia 5-patient currently waiting for vascular surgery evaluation regarding ischemic right leg, we will continue with daptomycin, Zosyn Levaquin and Eraxis prognosis guarded Dictation was produced using [employer] dictation software. please excuse any grammatical, word or spelling errors. Time with Patient: Less than 30
--- NOTE | 2023-11-14 14:50 | P.PN ---
Subjective Progress Note Date: 11/14/23 Principal diagnosis: Reason for follow-up is bilateral lower extremity infected wounds and perforated peptic ulcer Patient is a 63-year-old male with a past medical history significant for hypertension hyperlipidemia coronary artery disease, PAD multiple vascular procedures including left femoral-tibial bypass and now has been dealing with the wound to the left lower extremity as well as wound to the right leg being managed in the outpatient setting by vascular surgery Center the hospital by the home care nurse concerning for worsening infection. Patient last wound culture positive for VRE and Pseudomonas. Patient is status post Sharp excisional debridement bilateral lower extremities along with cultures of the purulent material completed on 11/03/2023.Patient was taken to the OR 11/05/2023 found to have perforated gastric ulcer status post exploratory laparotomy repair of the perforated ulcer with modified Jasvir patch. On today's evaluation that is 11/14/2023, patient has been afebrile, patient is breathing comfortably and is currently on 2 L nasal cannula oxygen patient remains to be restless not have adequate historian as he does not answer any question no vomiting diarrhea or any other changes reported. Patient white count is 15.1, creatinine 2.70 wound culture growing Enterococcus faecium Objective - Vital Signs Vital signs: Vital Signs Temp 98.2 F 11/14/23 12:00 Pulse 106 H 11/14/23 14:15 Resp 21 11/14/23 14:15 BP 103/63 11/06/23 03:00 Pulse Ox 100 11/14/23 14:00 FiO2 35 11/12/23 08:54 Intake & Output 11/13/23 11/14/23 11/14/23 18:59 06:59 18:59 Intake Total 1898.605 4131.698 952.343 Output Total 2585 1935 1520 Balance -1282.114 -538.302 -567.657 Weight 95.1 kg 89 kg Intake: IV 516 279 251 Anidulafungin 100 mg In 100 100 Sodium Chloride 0.9% 100 ml @ 84 mls/hr IVPB DAILY [facility] Rx#:[id number] DAPTOmycin 500 mg In 50 Sodium Chloride 0.9% 50 ml @ 100 mls/hr IVPB Q48H [facility] Rx#:[id number] KVO 80 90 30 Levofloxacin 250Mg-D5w 50 50 Pmx 250 mg In Dextrose/ Water 1 50ml.bag @ 50 mls /hr IVPB Q24H [facility] Rx#: [id number] Piperacillin-Tazobactam 3 200 100 100 .375 gm In Sodium Chloride 0.9% 100 ml @ 25 mls/hr IVPB Q8HR [facility] Rx# :[id number] Pressure lines 36 39 21 Intake, IV Titration 216.508 2381.698 701.343 Amount Fat Emulsion 20% 250 ml @ 83.2 124.8 20.833 mls/hr IV MoFr [facility] Rx#:[id number] Mvi, Adult No.4 with Vit 407 300 K 10 ml Trace (Conc-1Ml/ Dose) 1 ml Sodium Acetate 40 meq Potassium Acetate 40 meq Calcium Gluconate 1.5 gm Magnesium Sulfate gm 1 gm In Amino Acids 5 %/Dextrose 20 % 1,000 ml @ 75 mls/hr IV .BY DURATION [facility] Rx#: [id number] Norepinephrine 4 mg In 296.686 17.898 76.343 Sodium Chloride 0.9% 250 ml @ 0.03 MCG/KG/MIN 9. 851 mls/hr IV .Q24H [facility] Rx#:[id number] Potassium Chloride 20 meq 100 In Water For Injection 1 100ml.bag @ 50 mls/hr IVPB Q2H [facility] Rx#: [id number] Sodium Acetate 40 meq 675 525 Potassium Acetate 40 meq Calcium Gluconate 1.5 gm Magnesium Sulfate gm 1 gm In Amino Acids 5 %/ Dextrose 20 % 1,000 ml @ 75 mls/hr IV .BY DURATION [facility] Rx#:[id number] Output: Gastric Drainage 30 Drainage 390 430 100 Right 390 430 100 Urine 2165 1505 1420 Other: Voiding Method Indwelling Catheter Indwelling Catheter # Bowel Movements 1 1 ABP, PAP, CO, CI - Last Documented Arterial Blood Pressure 106/64 - Exam GENERAL DESCRIPTION: Middle-age male lying in bed in no distress RESPIRATORY SYSTEM: Unlabored breathing , decreased breath sounds at bases HEART: S1 S2 regular rate and rhythm , ABDOMEN: Soft , mild distention EXTREMITIES: Bilateral lower extremity wounds are currently dressed - Labs CBC & Chem 7: 11/14/23 04:45 11/14/23 04:45 Labs: Abnormal Lab Results - Last 24 Hours (Table) 11/13/23 11/14/23 11/14/23 Range/Units 23:25 04:45 04:45 WBC 15.1 H (3.8-10.6) k/uL RBC 2.72 L (4.30-5.90) m/uL Hgb 7.0 L (13.0-17.5) gm/dL Hct 23.6 L (39.0-53.0) % MCHC 29.7 L (31.0-37.0) g/dL RDW 23.3 H (11.5-15.5) % Neutrophils # 13.6 H (1.3-7.7) k/uL Lymphocytes # 0.6 L (1.0-4.8) k/uL Sodium 135 L (137-145) mmol/L Potassium 3.4 L (3.5-5.1) mmol/L BUN 52 H (9-20) mg/dL Creatinine 2.70 H (0.66-1.25) mg/dL Glucose 122 H (74-99) mg/dL POC Glucose (mg/dL) 147 H (70-110) mg/dL 11/14/23 11/14/23 Range/Units 06:42 11:34 WBC (3.8-10.6) k/uL RBC (4.30-5.90) m/uL Hgb (13.0-17.5) gm/dL Hct (39.0-53.0) % MCHC (31.0-37.0) g/dL RDW (11.5-15.5) % Neutrophils # (1.3-7.7) k/uL Lymphocytes # (1.0-4.8) k/uL Sodium (137-145) mmol/L Potassium (3.5-5.1) mmol/L BUN (9-20) mg/dL Creatinine (0.66-1.25) mg/dL Glucose (74-99) mg/dL POC Glucose (mg/dL) 130 H 129 H (70-110) mg/dL Microbiology - Last 24 Hours (Table) 11/12/23 12:10 Gram Stain - Preliminary Other - Other Wound Culture - Preliminary Enterococcus faecium Assessment and Plan (1) Bilateral lower leg cellulitis Current Visit: Yes Status: Acute Code(s): L03.116 - CELLULITIS OF LEFT LOWER LIMB; L03.115 - CELLULITIS OF RIGHT LOWER LIMB SNOMED Code(s): 323239268 (2) Open wound of both lower extremities Current Visit: Yes Status: Acute Code(s): S81.801A - UNSPECIFIED OPEN WOUND, RIGHT LOWER LEG, INITIAL ENCOUNTER; S81.802A - UNSPECIFIED OPEN WOUND, LEFT LOWER LEG, INITIAL ENCOUNTER SNOMED Code(s): 75395841 (3) Sepsis Current Visit: Yes Status: Acute Code(s): A41.9 - SEPSIS, UNSPECIFIED ORGANISM SNOMED Code(s): 54444964 (4) Pneumonia Current Visit: Yes Status: Acute Code(s): J18.9 - PNEUMONIA, UNSPECIFIED ORGANISM SNOMED Code(s): 518211128 Plan: 1patient presented to hospital with sepsis in this patient who did have a fever tachycardia elevated white count source is likely bilateral lower extremity wound and cellulitis with more extensive wound to the left lower extremity in this patient who did have a history of PAD and has multiple vascular procedure last wound culture done from the right leg has been Pseudomonas and VRE that was done on 10/03/2023, culture done this admission are growing Pseudomonas aeruginosa Enterococcus faecalis that is not VRE and MRSA 2patient is status post debridement and deep culture completed on 11/03/2023 which did grow multiple pathogen including Pseudomonas Morganella Enterococcus faecalis and MRSA 3patient did have a perforated peptic ulcer status post laparotomy and modified Jasvir patch 4-patient sputum is growing stenotrophomonas concerning for gram-negative pneumonia 5-patient has been reevaluated by vascular surgery regarding ischemic right leg planning for possible revascularization once stable, 6we will continue with daptomycin, Zosyn Levaquin and Eraxis prognosis guarded Dictation was produced using [employer] dictation software. please excuse any grammatical, word or spelling errors. Time with Patient: Less than 30
[2023-11-14 17:46] LABS: Glucose,Whole Blood 112 mg/dL (70-110)
[2023-11-14] MEDS: HYDROmorphone 0.5 MG/0.5 ML SYRINGE IVP PRN (21:14)
[2023-11-14] MEDS: MORPHINE SULFATE 4 MG/ML SYRINGE IVP PRN (23:37)
[2023-11-15] MEDS: LEVOFLOXACIN 250MG-D5W PMX 250 MG in DEXTROSE/WATER 1 50ML.BAG IVPB SCH (03:37)
[2023-11-15 04:38] LABS: Anisocytosis Moderate; Basophils % (A) 0 %; Eosinophils # (A) 0.2 k/uL (0-0.7); Eosinophils % (A) 1 %; HCT 23.9 % (39.0-53.0); HGB 7.1 gm/dL (13.0-17.5); Hypochromasia Marked; Lymphocytes # (A) 0.8 k/uL (1.0-4.8); Lymphocytes % (A) 5 %; MCH 25.7 pg (25.0-35.0); MCHC 29.5 g/dL (31.0-37.0); MCV 86.9 fL (80.0-100.0); Microcytosis Slight; Monocytes # (A) 0.6 k/uL (0-1.0); Monocytes % (A) 4 %; Neutrophils # (A) 13.4 k/uL (1.3-7.7); Neutrophils % (A) 88 %; Platelet Count 420 k/uL (150-450); RBC 2.75 m/uL (4.30-5.90); RDW 22.7 % (11.5-15.5); WBC 15.2 k/uL (3.8-10.6)
[2023-11-15 04:43] LABS: African American GFR (CKD) 32 (>60 ml/min/1.73 sqM); Anion Gap 7 mmol/L; Blood Urea Nitrogen 56 mg/dL (9-20); Calcium 8.7 mg/dL (8.4-10.2); Carbon Dioxide 28 mmol/L (22-30); Chloride 109 mmol/L (98-107); Glucose 129 mg/dL (74-99); Magnesium 1.9 mg/dL (1.6-2.3); Non-African American GFR(CKD) 28 (>60 ml/min/1.73 sqM); Phosphorus 2.7 mg/dL (2.5-4.5); Potassium 3.6 mmol/L (3.5-5.1); Sodium 144 mmol/L (137-145)
[2023-11-15] MEDS ORDERED: Potassium Replacement Protocol 1 EACH MISC MISCELLANE PRN (04:44)
[2023-11-15] MEDS: POTASSIUM CHLORIDE 20 MEQ in WATER FOR INJECTION 1 100ML.BAG IVPB SCH (05:06)
--- NOTE | 2023-11-15 08:00 | XR ---
EXAMINATION TYPE: XR chest 1V portable DATE OF EXAM: 11/15/2023 COMPARISON: 11/13/2023 HISTORY: SOB, Follow Up FINDINGS: Indwelling tubes and catheters are unchanged. No change in perihilar and left basilar opacities. Stable appearance of the cardio-mediastinal structures at this time. Pleural effusion unchanged. IMPRESSION: 1. Stable portable chest. Clinical correlation and follow up until resolution is recommended.
--- NOTE | 2023-11-15 08:56 | P.PN ---
Subjective Progress Note Date: 11/14/23 H&P Date: 10/30/23 Chief Complaint: Worsening bilateral lower legs, increased pain, edema and "split open" This is 63-year-old gentleman with past medical history significant for PAD, multiple vascular procedures including femoral-tibial bypass followed by wound development, dehiscence of his left lower extremity, status post recent excisional debridement of the left lower leg wound with skin substitute placement, excisional debridement of the left great toe wound and excisional debridement of right lower leg wound x 2 on 10/03/[address] Inman, vascular surgery, presented to the ER with worsening bilateral lower extremity pain, edema, reports right lower extremity "split open" over the last week with serous drainage. His visiting nurse evaluated patient on Monday recommending ER. Denies any chest pain, palpitations or shortness of breath. Denies nausea vomiting or diarrhea. Denies abdominal pain. Denies fever or chills. Denies lightheadedness, dizziness or focal deficits. Wound and blood cultures obtained, initiated on vancomycin in the ER. Tmax 101, WBC 16.3, increased to 19.67, CRP 12.6 .hemoglobin 7.7, platelets 468. Sodium 129, potassium 3.3, bicarb 19, BUN 10, creatinine 0.7. Lactic acid 2.2, improved with IV fluid hy dration, 1.1. Magnesium 1-repeat level ordered stat. 10/31/2023 Tmax 101. WBC decreased to 15.1. reports decreased appetite. Sodium decreased to 127, renal function stable. Potassium 3.9, magnesium 1.2 - supplements ordered. Positive pain of bilateral lower extremities. Evaluated by infectious disease, antibiotics adjusted to Zyvox and meropenem. Denies chest pain, palpitations or shortness of breath. 11/01/2023 wound cultures growing Pseudomonas and Enterococcus faecalis, vancomycin and penicillin sensitive, afebrile, WBC up to 20.06, antibiotics further adjusted to Zosyn and daptomycin. Renal function stable. IV fluids adjusted yesterday to D5.9 with sodium improved up to 130. 11/02/2023 maintained on IV antibiotics as per ID. Afebrile, WBC decreased to 17.3. Hemoglobin 9.1, platelets 523. Sodium 131 on IV fluids of D5.9. Potassium 3.8, magnesium 1.8, creatinine 0.9. Pain controlled , denies chest pain, palpitations or shortness of breath, maintaining O2 sats in the high 90s on room air. Scheduled for debridement and deep cultures tomorrow with vascular surgery. 11/07/2023 remains vent dependent with FiO2 35%/5 of PEEP. Maintained on diprovan, Levophed and bicarb drips. Bicarb 20, BUN 53, creatinine 2.84. continues on daptomycin, Eraxis, Zosyn. WBC 21, afebrile. Receiving potassium supplementation for potassium 3.3. Hemoglobin 7.1, platelets 477. 11/08/2023 Vent dependent, FiO2 35%/+5 of PEEP. Unsuccessful weaning trial yesterday, not following commands. Scheduled for another weaning trial today. Bicarb 23, bicarb drip discontinued. Levophed resumed after being off for few hours during the night. Echo reported EF 55 to 60%. Telemetry atrial f ibrillation with controlled ventricular rates, cardiology following. Staff reported earlier this morning right foot noted to be cooler, mottled, improved with rewrapping of Abhijeet wrap's -less tight. TPN ordered. 11/09/2023 weaning trials attempted yesterday, patient was not following commands , not opening eyes ,shaking his head [id number]. Vent dependent, FiO2 35%/+5 of PEEP. Repeat weaning trial scheduled for today. continues on Levophed. Telemetry atrial fibrillation with controlled ventricular rate. continues to have large output from SANDY drain. Afebrile, WBC increased to 15.4. Hemoglobin 7.2, platelet count 317. Bicarb 21, BUN 54, creatinine 3.27. Sputum culture reporting stenotrophomonas maltophilia, Doreen albicans. Maintained on Zosyn, Eraxis and vancomycin. 11/10/2023 Vent dependent FiO2 35%/+5 of PEEP. Maintained on Levophed. Telemetry atrial fibrillation, controlled ventricular rate. Failed weaning trial yesterday, reattempting today. Bicarb 21, BUN 54, creatinine 3.21. Afebrile, WBC increased to 18. Continues on daptomycin, Zosyn, Levaquin, Eraxis. 11/13/2023 extubated yesterday, maintaining O2 sats in the 90s on 2 L nasal cannula. Pressures soft ,maintained on Levophed. Tolerating TPN with minimal to no residual. Confused, pulling at lines. Sputum culture reported stenotrophomonas. continues on Eraxis, daptomycin, Levaquin and Zosyn. Afebrile, WBC 15.1. Hemoglobin 7.1, platelets 419. BUN 54, creatinine 3.14. 11/14/2023 maintained on 2 L nasal cannula maintaining O2 sats in the high 90s to 100% .hemoglobin 7 ,renal function continues to improve, creatinine 2.7 .remains pressor dependent. Afebrile, WBC remains at 15.1. continues on Eraxis, daptomycin, Levaquin and Zosyn. Continues on TPN at goal of 75 mL/h. confused. Right lower extremity reevaluated by vascular surgery with no surgical debridement recommended at this time; recommending eventual right lower extremity SFA revascularization when more stable. Objective - Vital Signs Vital signs: Vital Signs Temp 98.2 F 11/14/23 12:00 Pulse 106 H 11/14/23 14:15 Resp 21 11/14/23 14:15 BP 103/63 11/06/23 03:00 Pulse Ox 100 11/14/23 14:00 FiO2 35 11/12/23 08:54 Intake & Output 11/13/23 11/14/23 11/14/23 18:59 06:59 18:59 Intake Total 4154.051 6762.698 952.343 Output Total 2585 1935 1520 Balance -1282.114 -538.302 -567.657 Weight 95.1 kg 89 kg Intake: IV 516 279 251 Anidulafungin 100 mg In 100 100 Sodium Chloride 0.9% 100 ml @ 84 mls/hr IVPB DAILY [facility] Rx#:[id number] DAPTOmycin 500 mg In 50 Sodium Chloride 0.9% 50 ml @ 100 mls/hr IVPB Q48H [facility] Rx#:[id number] KVO 80 90 30 Levofloxacin 250Mg-D5w 50 50 Pmx 250 mg In Dextrose/ Water 1 50ml.bag @ 50 mls /hr IVPB Q24H [facility] Rx#: [id number] Piperacillin-Tazobactam 3 200 100 100 .375 gm In Sodium Chloride 0.9% 100 ml @ 25 mls/hr IVPB Q8HR [facility] Rx# :[id number] Pressure lines 36 39 21 Intake, IV Titration 395.838 6247.698 701.343 Amount Fat Emulsion 20% 250 ml @ 83.2 124.8 20.833 mls/hr IV MoFr [facility] Rx#:[id number] Mvi, Adult No.4 with Vit 407 300 K 10 ml Trace (Conc-1Ml/ Dose) 1 ml Sodium Acetate 40 meq Potassium Acetate 40 meq Calcium Gluconate 1.5 gm Magnesium Sulfate gm 1 gm In Amino Acids 5 %/Dextrose 20 % 1,000 ml @ 75 mls/hr IV .BY DURATION [facility] Rx#: [id number] Norepinephrine 4 mg In 296.686 17.898 76.343 Sodium Chloride 0.9% 250 ml @ 0.03 MCG/KG/MIN 9. 851 mls/hr IV .Q24H [facility] Rx#:[id number] Potassium Chloride 20 meq 100 In Water For Injection 1 100ml.bag @ 50 mls/hr IVPB Q2H [facility] Rx#: [id number] Sodium Acetate 40 meq 675 525 Potassium Acetate 40 meq Calcium Gluconate 1.5 gm Magnesium Sulfate gm 1 gm In Amino Acids 5 %/ Dextrose 20 % 1,000 ml @ 75 mls/hr IV .BY DURATION [facility] Rx#:[id number] Output: Gastric Drainage 30 Drainage 390 430 100 Right 390 430 100 Urine 2165 1505 1420 Other: Voiding Method Indwelling Catheter Indwelling Catheter # Bowel Movements 1 1 ABP, PAP, CO, CI - Last Documented Arterial Blood Pressure 106/64 - Exam PHYSICAL EXAM: VITAL SIGNS: [As above] GENERAL: Alert , confused, on 2 L nasal cannula O2 HEENT: Normocephalic, atraumatic ,conjunctivae normal. NECK: Supple, no JVD. CARDIOVASCULAR: S1, S2 regular. Irregular, no murmur. RESPIRATION: Unlabored, equal air entry, fine bibasilar crackles ABDOMEN: status post surgery, wound VAC, SANDY drain with purulent drainage, hypoactive LEGS: Bilateral lower extremities' Kerlix/Abhijeet wrap dressings clean dry and intact. NERVOUS SYSTEM: Limited, not following simple commands ,occupational safety and health manager at bedside Skin: Warm and dry, no rash - Labs CBC & Chem 7: 11/15/23 04:20 11/15/23 04:20 Labs: Abnormal Lab Results - Last 24 Hours (Table) 11/13/23 11/14/23 11/14/23 Range/Units 23:25 04:45 04:45 WBC 15.1 H (3.8-10.6) k/uL RBC 2.72 L (4.30-5.90) m/uL Hgb 7.0 L (13.0-17.5) gm/dL Hct 23.6 L (39.0-53.0) % MCHC 29.7 L (31.0-37.0) g/dL RDW 23.3 H (11.5-15.5) % Neutrophils # 13.6 H (1.3-7.7) k/uL Lymphocytes # 0.6 L (1.0-4.8) k/uL Sodium 135 L (137-145) mmol/L Potassium 3.4 L (3.5-5.1) mmol/L BUN 52 H (9-20) mg/dL Creatinine 2.70 H (0.66-1.25) mg/dL Glucose 122 H (74-99) mg/dL POC Glucose (mg/dL) 147 H (70-110) mg/dL 11/14/23 11/14/23 Range/Units 06:42 11:34 WBC (3.8-10.6) k/uL RBC (4.30-5.90) m/uL Hgb (13.0-17.5) gm/dL Hct (39.0-53.0) % MCHC (31.0-37.0) g/dL RDW (11.5-15.5) % Neutrophils # (1.3-7.7) k/uL Lymphocytes # (1.0-4.8) k/uL Sodium (137-145) mmol/L Potassium (3.5-5.1) mmol/L BUN (9-20) mg/dL Creatinine (0.66-1.25) mg/dL Glucose (74-99) mg/dL POC Glucose (mg/dL) 130 H 129 H (70-110) mg/dL Microbiology - Last 24 Hours (Table) 11/12/23 12:10 Gram Stain - Preliminary Other - Other Wound Culture - Preliminary Enterococcus faecium Assessment and Plan Assessment: Sepsis secondary to infected bilateral lower extremity wounds, cellulitis, recent excisional debridement of left lower leg wound with skin substitute placement, excisional debridement of the left great toe wound and excisional imtiaz ridement of the right lower leg wound x 2 on 10/03/[address] Inman , vascular surgery. Cultures currently growing Pseudomonas aeruginosa and Enterococcus faecalis and MRSA. Status post debridement with deep cultures 830 reporting Pseudomonas Morganelli, Enterococcus faecalis and MRSA Perforated peptic ulcer and pneumoperitoneum status post exploratory laparotomy with gastric ulcer repair, modified Jasvir patch on 11/05/2023 Acute hypoxic respiratory failure, mechanical ventilator dependent Hospital-acquired, bilateral pneumonia ;sputum culture reporting stenotrophomonas maltophilia, Doreen albicans Septic shock, requiring vasopressors Acute metabolic encephalopathy secondary to all the above Acute kidney injury, ATN secondary to sepsis, hypotension, stable. Metabolic acidosis secondary to the above, status post bicarb drip, improved History of Pseudomonas and VRE on last wound culture of left leg 10/03/2023, Lactic acidosis secondary to the above History of Left lower extremity skin dehiscence and wound infection,MSSA, status post excisional debridement and wound VAC. Left great toe ischemia status post excisional debridement History of left femoral tibial bypass secondary to critical limb ischemia History of aortic aneurysm with endovascular repair; Chronic Paroximal atrial fibrillation CAD, history of stent placement Essential hypertension Hyperlipidemia Nicotine dependence Daily alcohol use Noncompliance with medication regimen, patient is high risk for readmission. Iron deficient anemia Hypokalemia Hypomagnesemia Hyponatremia Plan: Continue current medication regimen, monitoring and symptomatic treatment. TPN .ICU management as per electronic calibration technician .antibiotics as per ID .prognosis guarded given multiple complex medical issues. The impression and plan of care has been dictated as directed. : I performed a history and examination of this patient, discussed the same with the dictator. I agree with the dictator's note ,documented as a scribe. Any additional findings or plans will be noted.
--- NOTE | 2023-11-15 10:02 | P.PN ---
Subjective Patient is seen in follow-up for acute kidney injury. Renal function improving. Nonoliguric. On IV Lasix. On Levophed. Receiving TPN. Vital signs are stable. On Levophed. General: No acute distress. HEENT: NG tube noted. On nasal cannula. LUNGS: No audible rhonchi or wheezes. HEART: Rate and Rhythm are regular. ABDOMEN: No distention. EXTREMITITES: Lower extremities wrapped. No drainage. 1+ edema. Objective - Vital Signs Vital signs: Vital Signs Temp 98.3 F 11/15/23 08:00 Pulse 101 H 11/15/23 09:45 Resp 17 11/15/23 09:45 BP 103/63 11/06/23 03:00 Pulse Ox 100 11/15/23 09:45 FiO2 35 11/12/23 08:54 Intake & Output 11/14/23 11/15/23 11/15/23 18:59 06:59 18:59 Intake Total 2505.993 651.587 8 Output Total 2325 1275 425 Balance 180.993 -623.413 -417 Weight 87 kg Intake: IV 388 88 8 Anidulafungin 100 mg In 100 Sodium Chloride 0.9% 100 ml @ 84 mls/hr IVPB DAILY [facility] Rx#:[id number] KVO 55 55 5 Piperacillin-Tazobactam 3 200 .375 gm In Sodium Chloride 0.9% 100 ml @ 25 mls/hr IVPB Q8HR [facility] Rx# :[id number] Pressure lines 33 33 3 Intake, IV Titration 2117.993 563.587 Amount Mvi, Adult No.4 with Vit 450 525 K 10 ml Trace (Conc-1Ml/ Dose) 1 ml Sodium Acetate 40 meq Potassium Acetate 40 meq Calcium Gluconate 1.5 gm Magnesium Sulfate gm 1 gm In Amino Acids 5 %/Dextrose 20 % 1,000 ml @ 75 mls/hr IV .BY DURATION [facility] Rx#: [id number] Norepinephrine 4 mg In 135.993 38.587 Sodium Chloride 0.9% 250 ml @ 0.03 MCG/KG/MIN 9. 851 mls/hr IV .Q24H [facility] Rx#:[id number] Potassium Chloride 20 meq 100 In Water For Injection 1 100ml.bag @ 50 mls/hr IVPB Q2H [facility] Rx#: [id number] Sodium Acetate 40 meq 1432 Potassium Acetate 40 meq Calcium Gluconate 1.5 gm Magnesium Sulfate gm 1 gm In Amino Acids 5 %/ Dextrose 20 % 1,000 ml @ 75 mls/hr IV .BY DURATION [facility] Rx#:[id number] Output: Gastric Drainage 30 Drainage 300 300 Abdomen 0 300 Right 300 Urine 1995 1275 125 Other: Voiding Method Indwelling Catheter Indwelling Catheter # Bowel Movements 1 ABP, PAP, CO, CI - Last Documented Arterial Blood Pressure 109/60 - Labs CBC & Chem 7: 11/15/23 04:20 11/15/23 04:20 Labs: Abnormal Lab Results - Last 24 Hours (Table) 11/14/23 11/14/23 11/15/23 Range/Units 11:34 17:44 04:20 WBC (3.8-10.6) k/uL RBC (4.30-5.90) m/uL Hgb (13.0-17.5) gm/dL Hct (39.0-53.0) % MCHC (31.0-37.0) g/dL RDW (11.5-15.5) % Neutrophils # (1.3-7.7) k/uL Lymphocytes # (1.0-4.8) k/uL Chloride 109 H (98-107) mmol/L BUN 56 H (9-20) mg/dL Creatinine 2.36 H (0.66-1.25) mg/dL Glucose 129 H (74-99) mg/dL POC Glucose (mg/dL) 129 H 112 H (70-110) mg/dL 11/15/23 Range/Units 04:20 WBC 15.2 H (3.8-10.6) k/uL RBC 2.75 L (4.30-5.90) m/uL Hgb 7.1 L (13.0-17.5) gm/dL Hct 23.9 L (39.0-53.0) % MCHC 29.5 L (31.0-37.0) g/dL RDW 22.7 H (11.5-15.5) % Neutrophils # 13.4 H (1.3-7.7) k/uL Lymphocytes # 0.8 L (1.0-4.8) k/uL Chloride (98-107) mmol/L BUN (9-20) mg/dL Creatinine (0.66-1.25) mg/dL Glucose (74-99) mg/dL POC Glucose (mg/dL) (70-110) mg/dL Microbiology - Last 24 Hours (Table) 11/12/23 12:10 Gram Stain - Final Other - Other Wound Culture - Final Enterococcus faecium VRE Doreen albicans 11/12/23 12:10 Anaerobic Culture - Preliminary Other - Other Assessment and Plan Plan: Assessment: 1. Acute kidney injury secondary to ATN secondary to septic shock. No hydronep hrosis noted on CAT scan. Baseline creatinine near 1 and peaked at 3.32 this admission -2.36 today. Nonoliguric. 2. Septic shock secondary to perforated viscus and lower extremity wounds. 3. Metabolic acidosis secondary to acute kidney injury. Improved. 4. Volume overload. Improving with diuresis. 5. Hyperphosphatemia secondary to acute kidney injury. Resolved. 6. Anemia. Avoid IV iron in the setting of acute infection. On Aranesp. 7. Hypokalemia from diuresis. Replaced. Plan: TPN per surgery. Maintain IV Lasix. Wean Levophed. Continue to monitor renal function and urine output.
[2023-11-15 11:59] LABS: Glucose,Whole Blood 105 mg/dL (70-110)
--- NOTE | 2023-11-15 13:01 | P.PN ---
Subjective Progress Note Date: 11/15/23 Principal diagnosis: Bilateral lower extremity wounds Patient seen and examined today as a follow-up. Patient still remains confused and has sitter at the bedside along with restraints. He has been afebrile. No acute changes through the night. Still requiring pressors. Objective - Vital Signs Vital signs: Vital Signs Temp 97.6 F 11/15/23 04:00 Pulse 89 11/15/23 08:13 Resp 16 11/15/23 08:13 BP 103/63 11/06/23 03:00 Pulse Ox 100 11/15/23 08:06 FiO2 35 11/12/23 08:54 Intake & Output 11/14/23 11/15/23 11/15/23 18:59 06:59 18:59 Intake Total 2505.993 651.587 8 Output Total 2325 1275 425 Balance 180.993 -623.413 -417 Weight 87 kg Intake: IV 388 88 8 Anidulafungin 100 mg In 100 Sodium Chloride 0.9% 100 ml @ 84 mls/hr IVPB DAILY [facility] Rx#:[id number] KVO 55 55 5 Piperacillin-Tazobactam 3 200 .375 gm In Sodium Chloride 0.9% 100 ml @ 25 mls/hr IVPB Q8HR [facility] Rx# :[id number] Pressure lines 33 33 3 Intake, IV Titration 2117.993 563.587 Amount Mvi, Adult No.4 with Vit 450 525 K 10 ml Trace (Conc-1Ml/ Dose) 1 ml Sodium Acetate 40 meq Potassium Acetate 40 meq Calcium Gluconate 1.5 gm Magnesium Sulfate gm 1 gm In Amino Acids 5 %/Dextrose 20 % 1,000 ml @ 75 mls/hr IV .BY DURATION [facility] Rx#: [id number] Norepinephrine 4 mg In 135.993 38.587 Sodium Chloride 0.9% 250 ml @ 0.03 MCG/KG/MIN 9. 851 mls/hr IV .Q24H [facility] Rx#:[id number] Potassium Chloride 20 meq 100 In Water For Injection 1 100ml.bag @ 50 mls/hr IVPB Q2H [facility] Rx#: [id number] Sodium Acetate 40 meq 1432 Potassium Acetate 40 meq Calcium Gluconate 1.5 gm Magnesium Sulfate gm 1 gm In Amino Acids 5 %/ Dextrose 20 % 1,000 ml @ 75 mls/hr IV .BY DURATION [facility] Rx#:[id number] Output: Gastric Drainage 30 Drainage 300 300 Abdomen 0 300 Right 300 Urine 1995 1275 125 Other: Voiding Method Indwelling Catheter Indwelling Catheter # Bowel Movements 1 ABP, PAP, CO, CI - Last Documented Arterial Blood Pressure 95/54 - Exam General appearance: The patient is sleeping. HET: Head is normocephalic and atraumatic. Neck: Supple. Abdomen: Soft, nondistended. Extremities: Lower extremity edema improved. Lateral lower extremities with dressings clean dry and intact. Feet are warm and dry with good capillary refill. Neurological: Currently sleeping. In soft restraints with a sitter at bedside. - Labs CBC & Chem 7: 11/15/23 04:20 11/15/23 04:20 Labs: Abnormal Lab Results - Last 24 Hours (Table) 11/14/23 11/14/23 11/15/23 Range/Units 11:34 17:44 04:20 WBC (3.8-10.6) k/uL RBC (4.30-5.90) m/uL Hgb (13.0-17.5) gm/dL Hct (39.0-53.0) % MCHC (31.0-37.0) g/dL RDW (11.5-15.5) % Neutrophils # (1.3-7.7) k/uL Lymphocytes # (1.0-4.8) k/uL Chloride 109 H (98-107) mmol/L BUN 56 H (9-20) mg/dL Creatinine 2.36 H (0.66-1.25) mg/dL Glucose 129 H (74-99) mg/dL POC Glucose (mg/dL) 129 H 112 H (70-110) mg/dL 11/15/23 Range/Units 04:20 WBC 15.2 H (3.8-10.6) k/uL RBC 2.75 L (4.30-5.90) m/uL Hgb 7.1 L (13.0-17.5) gm/dL Hct 23.9 L (39.0-53.0) % MCHC 29.5 L (31.0-37.0) g/dL RDW 22.7 H (11.5-15.5) % Neutrophils # 13.4 H (1.3-7.7) k/uL Lymphocytes # 0.8 L (1.0-4.8) k/uL Chloride (98-107) mmol/L BUN (9-20) mg/dL Creatinine (0.66-1.25) mg/dL Glucose (74-99) mg/dL POC Glucose (mg/dL) (70-110) mg/dL Microbiology - Last 24 Hours (Table) 11/12/23 12:10 Gram Stain - Final Other - Other Wound Culture - Final Enterococcus faecium VRE Doreen albicans 11/12/23 12:10 Anaerobic Culture - Preliminary Other - Other Assessment and Plan Assessment: 1. Bilateral lower extremity wound status postdebridement 2. Perforated gastric ulcer status post repair 3. Acute ventilatory dependent respiratory failure, improved 4. Hypotensive requiring pressors 5. Altered mental status 6. Peripheral arterial disease. Right SFA occlusion. Plan: 1. Continue with ICU supportive care. 2. Continue lower extremity local wound care daily 3. No plans at this time for surgical debridement. Previous angiogram reviewed and patient likely would benefit from right lower extremity SFA revascularization once patient is more stable. No plans at this time for surgical debridement. Continue local wound care we will continue to follow along. The impression and plan of care has been dictated as directed. Dr. Isaac I performed a history and examination of this patient, discussed the same with the dictator. I agree with the dictator's note ,documented as a scribe. Any additional findings or plans will be noted.
--- NOTE | 2023-11-15 13:25 | P.PN ---
Subjective Progress Note Date: 11/15/23 CHIEF COMPLAINT: Perforated gastric ulcer HISTORY OF PRESENT ILLNESS: patient is postop day #10 status post repair of perforated gastric ulcer. Patient's SANDY drain with bile noted. SANDY drain output is bilious. He does have a bedside sitter and restraints. Wall suctioning for the SANDY drain was not working. He is currently off of the Levophed. Afebrile. WBC the same at 15.2 Patient seen and examined with Dr. Gracia PHYSICAL EXAM: VITAL SIGNS: Reviewed. GENERAL: No acute distress. ABDOMEN: Soft. nondistended. Tender with palpation. wound VAC intact with serosanguineous ascites fluid. SANDY drain with bile ASSESSMENT: 1. Perforated gastric ulcer 2. Sepsis and septic shock 3. History of alcoholism 4. Severe protein calorie malnutrition 5. Bile leak PLAN: -Keep patient n.p.o. -Continue NG tube for decompression -Wound VAC to be changed today -Continue to monitor SANDY drain output -Continue TPN for nutrition support -continue ICU management -Continue supportive care -Antibiotics per ID service -Continue IV Protonix Physician Warp Drawer note has been reviewed by physician. Signing provider agrees with the documented findings, assessment, and plan of care. Objective - Vital Signs Vital signs: Vital Signs Temp 97.5 F L 11/15/23 12:00 Pulse 100 11/15/23 13:00 Resp 18 11/15/23 13:00 BP 103/63 11/06/23 03:00 Pulse Ox 100 11/15/23 13:00 FiO2 35 11/12/23 08:54 Intake & Output 11/14/23 11/15/23 11/15/23 18:59 06:59 18:59 Intake Total 2505.993 651.587 832.791 Output Total 2325 1275 1700 Balance 180.993 -623.413 -867.209 Weight 87 kg Intake: IV 388 88 361 Anidulafungin 100 mg In 100 100 Sodium Chloride 0.9% 100 ml @ 84 mls/hr IVPB DAILY [facility] Rx#:[id number] DAPTOmycin 500 mg In 100 Sodium Chloride 0.9% 50 ml @ 100 mls/hr IVPB Q48H [facility] Rx#:[id number] KVO 55 55 40 Piperacillin-Tazobactam 3 200 100 .375 gm In Sodium Chloride 0.9% 100 ml @ 25 mls/hr IVPB Q8HR [facility] Rx# :[id number] Pressure lines 33 33 21 Intake, IV Titration 2117.993 563.587 21.791 Amount Mvi, Adult No.4 with Vit 450 525 K 10 ml Trace (Conc-1Ml/ Dose) 1 ml Sodium Acetate 40 meq Potassium Acetate 40 meq Calcium Gluconate 1.5 gm Magnesium Sulfate gm 1 gm In Amino Acids 5 %/Dextrose 20 % 1,000 ml @ 75 mls/hr IV .BY DURATION [facility] Rx#: [id number] Norepinephrine 4 mg In 135.993 38.587 21.791 Sodium Chloride 0.9% 250 ml @ 0.03 MCG/KG/MIN 9. 851 mls/hr IV .Q24H [facility] Rx#:[id number] Potassium Chloride 20 meq 100 In Water For Injection 1 100ml.bag @ 50 mls/hr IVPB Q2H [facility] Rx#: [id number] Sodium Acetate 40 meq 1432 Potassium Acetate 40 meq Calcium Gluconate 1.5 gm Magnesium Sulfate gm 1 gm In Amino Acids 5 %/ Dextrose 20 % 1,000 ml @ 75 mls/hr IV .BY DURATION [facility] Rx#:[id number] TPN/PPN 450 Mvi, Adult No.4 with Vit 450 K 10 ml Trace (Conc-1Ml/ Dose) 1 ml Sodium Acetate 40 meq Potassium Acetate 40 meq Calcium Gluconate 1.5 gm Magnesium Sulfate gm 1 gm In Amino Acids 5 %/Dextrose 20 % 1,000 ml @ 75 mls/hr IV .BY DURATION [facility] Rx#: [id number] Output: Gastric Drainage 30 Drainage 300 460 Abdomen 0 300 Right 300 160 Urine 1995 1275 1240 Other: Voiding Method Indwelling Catheter Indwelling Catheter Indwelling Catheter # Bowel Movements 1 ABP, PAP, CO, CI - Last Documented Arterial Blood Pressure 106/58 - Labs CBC & Chem 7: 11/15/23 04:20 11/15/23 04:20 Labs: Abnormal Lab Results - Last 24 Hours (Table) 11/14/23 11/15/23 11/15/23 Range/Units 17:44 04:20 04:20 WBC 15.2 H (3.8-10.6) k/uL RBC 2.75 L (4.30-5.90) m/uL Hgb 7.1 L (13.0-17.5) gm/dL Hct 23.9 L (39.0-53.0) % MCHC 29.5 L (31.0-37.0) g/dL RDW 22.7 H (11.5-15.5) % Neutrophils # 13.4 H (1.3-7.7) k/uL Lymphocytes # 0.8 L (1.0-4.8) k/uL Chloride 109 H (98-107) mmol/L BUN 56 H (9-20) mg/dL Creatinine 2.36 H (0.66-1.25) mg/dL Glucose 129 H (74-99) mg/dL POC Glucose (mg/dL) 112 H (70-110) mg/dL Microbiology - Last 24 Hours (Table) 11/12/23 12:10 Gram Stain - Final Other - Other Wound Culture - Final Enterococcus faecium VRE Doreen albicans 11/12/23 12:10 Anaerobic Culture - Preliminary Other - Other
--- NOTE | 2023-11-15 14:47 | P.PN ---
Subjective Progress Note Date: 11/15/23 Principal diagnosis: Perforated gastric ulcer with acute pneumoperitoneum and severe cellulitis of lower extremities with polymicrobial infection Patient is a 63-year-old white male with past medical history significant for chronic bilateral lower extremity wounds with multiple previous debridements, peripheral vascular disease, recent femoropopliteal artery bypass, AAA, coronary artery disease, hyperlipidemia, hypertension, and tobacco dependence. He is currently intubated to the mechanical ventilator in the intensive care unit, and unable to provide any information for HPI. Apparently, he presented to the emergency department on 10/29/2023 with his lower extremity wounds and suspected cellulitis/sepsis. He follows with vascular surgery. On 11/03/2023 he did under go debridement of his bilateral lower extremity wounds. Wound cultures positive for polymicrobial organisms including Pseudomonas aeruginosa, MRSA, Enterococcus faecalis. Antibiotics are being directed by infectious disease. Yesterday, on 11/05/2023 the patient was having some abdominal pain and issues with hypotension. A rapid response was called. CT of the abdomen and pelvis without contrast demonstrated a pneumoperitoneum. Patient was then taken to the operating room yesterday evening for an exploratory laparotomy, was found to have a perforated gastric ulcer; subsequently underwent repair with a modified Jasvir patch. Patient was transferred back to the intensive care unit in criti nerissa condition. Currently, patient is being evaluated in the intensive care unit intubated to the mechanical ventilator. Most recent ABGs consistent with profound metabolic acidosis. PaO2 327, pCO2 45, pH of 7.12. He was given 3 A of sodium bicarbonate. Current ventilator settings include assist-control, respiratory rate 16, tidal volume 450, FiO2 50%, and PEEP of 5. Chest x-ray, showing the tip of the endotracheal tube in a proximal position, approximately 9 cm above the prince. Nasogastric tube within the stomach. There is a left- sided pleural effusion. Dr. Crystal previously had the endotracheal tube advanced 3 cm. Patient is currently sedated on propofol which is infusing at 25 mc g/kg/min. He is synchronous with mechanical ventilator. Remains hypotensive, currently requiring vasopressors in the form of norepinephrine which is infusing at 0.1 mcg/kg/min. Postoperatively, the patient was fluid resuscitated with a total of 2 L crystalloid fluid. Lactated Ringer's also infusing at 125 mL/h. CVP is reading 8 mmHg. Patient has remained anuric. Heart rhythm appears atrial fibrillation with controlled ventricular response ranging from 80 to 90 bpm. Patient does have history of A-fib, not on any anticoagulation currently. Patient's abdominal incision has a wound VAC, and there is a compressed SANDY drain that is drained a total of 510 mL of serosanguineous output since surgery. Patient is currently covered on a combination of Zosyn, daptomycin, and Eraxis, which are being directed by infectious disease. Currently, hypothermic with external warming blanket on. Postoperative CBC: WBC count 31.8, hemoglobin 9.4, hematocrit 32.7, platelets 647. Postoperative BMP: Sodium 135, potassium 4.2, chloride 112, serum bicarb 12, BUN 53, creatinine 2.46, glucose 120. Overall, prognosis is guarded. On 11/07/2023, the patient is being seen for a follow-up. The patient remains intubated on the mechanical ventilator. This morning, the patient is sedated on propofol which is running at 40 mcg/kg/min. The patient remains intubated on mechanical ventilator on assist-control mode rate of 16, tidal volume of 450, FiO2 of 35% with a PEEP of 5. Chest x-ray shows consolidation of the lung bases more so on the left. ET tube is in good location. The patient also has an NG tube in place. The blood gas showed a pH of 7.42 with a pCO2 of 31 and pO2 of 87. No significant extra secretion the patient is currently intubated by #8 orotracheal tube. Hemodynamically, the patient remains on low-dose norepinephrine which is running at 0.05 mcg/kg/min. The patient is on a bicarb infusion running at 125 cc an hour. Output from the SANDY drain is quite extensive approximately 500 cc of serous material over the past 8 hours. The patient remains on the same antibiotic coverage and this includes Zosyn, daptomycin and Eraxis. On today's evaluation, the patient's white cell count is at 21 with a hemoglobin 7.1 and a platelet count of 477. BUN is 53 with a creatinine of 2.8 and a sodium levels at 137. The potassium levels of 3.3. Serum bicarb is at 20. Cultures from the wound is positive for Pseudomonas aeruginosa, Morganella and Enterococcus faecalis. Sputum sample is still negative for the time being. The patient is afebrile. The wounds in the lower extremity are appropriately dressed. Noted the patient has undergone multiple previous debridements of the lower extremity wounds. He is known to have severe PAD vascular disease. He is status post femoropopliteal bypass surgery. He is also known to have abdominal aortic aneurysm status post endovascular grafting along with coronary artery disease and hypertension hyperlipidemia. The patient is also status post gastric perforation with pneumoperitoneum requiring immediate surgical interventionAnd the patient has undergone exploratory laparotomy and repair of the perforated gastric ulcer with a modified Jasvir patch technique. Surgery was done on 11/05/2023 and the patient is currently postop day #2. He remains n.p.o. for now. On today's evaluation of 11/08/2023, the patient is being seen for a follow-up. Noted this morning, the patient remains sedated on propofol which is running at 40 mcg/kg/min. The patient was given a sedation holiday which she essentially failed. He did not recover his mentation and the patient was essentially thrashing and becoming asynchronous with mechanical ventilator and the trial was aborted. As such, the patient was kept on mechanical ventilator and earlier this morning the patient was on assist-control mode at rate of 16, tidal volume of 450, FiO2 of 35% with a PEEP of 5. Chest x-ray remains unchanged and the patient has consolidation lower lungs bilaterally and possibly some underlying pleural effusions. Blood gas showed a pH of 7.47 with a pCO2 of 33 and pO2 of 145. The patient remains in atrial fibrillation. The patient remains on pressors and norepinephrine is running at 0.03 mcg/kg/min. The patient remains NPO. Output from the NG tube is minimal at this point in time. Output from the SANDY drain was noted and it is in the order of 1.2 L of serous material over the past 24 hours. The surgical wound site is dry clean and intact. Wound VAC is also in place. The overall fluid balance over the past 24 hours is positive for 0.4 L. This sputum sample is positive for stenotrophomonas and Doreen. The current antibiotic coverage includes a combination of Eraxis, daptomycin and Zosyn. Blood work from today shows a WBC count of 12.8, hemoglobin of 7 and a platelet count of 316. BUN is 52 with a creatinine of 3.07 and a sodium levels at 137 and potassium level is at 3.9. Calcium level is low at 6.4. Phosphorus level is at 5.1. Triglycerides at 174. Patient is afebrile. The patient is currently postop day #3 following a repair of a perforated gastric ulcer with a modified Jasvir patch technique. Surgery was done on 11/05/2023. 11/09/2023, the patient is being seen for a follow-up. The patient remains intubated on the mechanical ventilator. Several attempt to wean the patient off sedation. That the patient was encephalopathic and thrashing and was not following any commands. Based on that, the patient was kept on propofol and this morning the patient is on propofol running at 40 mcg/kg/min. Possibility of encephalopathy with rates metabolic encephalopathy, drug encephalopathy, uremic/hepatic encephalopathy is to be considered. Possibility of an acute CVA in the setting of chronic atrial fibrillation cannot be completely ruled out. The patient is currently on a mechanical ventilator assist-control mode with a rate of 16, tidal volume of 450, FiO2 35% with a PEEP of 5. Blood gas showed a pH of 7.42 pCO2 pO2 of 139. The sputum sample was positive for stenotrophomonas and Levaquin was also added. The patient has no major respiratory secretions. Chest x-ray shows bilateral lower lobe consolidation/effusion. Hemodynamically, the patient is on no pressors. The SANDY drain is still draining approximately a liter of serosanguineous material on a daily basis and the wound VAC is still in place and the patient was started on TPN for nutritional support. Antibiotic coverage includes a combination of Zosyn, Eraxis and vancomycin. Patient is also suffering from an acute kidney injury. Creatinine is on the rise and this morning creatinine is at 3.27 with a BUN of 54. Sodium levels of 137, potassium of 4.2, LFTs are normal, albumin is at 1.9 with a total protein of 4.7. WBC count is at 15.4 with a hemoglobin of 7.2 and a platelet count of 315. Cardiac rhythm is atrial fibrillation with a controlled rate. 11/10/2023, the patient is being seen for a follow-up. Remains intubated on the mechanical ventilator. Based on underlying encephalopathy/delirium, the patient was given a CAT scan of the brain that showed no acute abnormalities. Ammonia level was also not elevated. Another sedation holiday will be given. The patient was taken off sedation this morning and did not return to being monitored. Meanwhile, the patient remains on mechanical ventilator. The patient on assist-control mode rate of 16, tidal volume of 450, FiO2 35% and PEEP of 5. Antibiotic coverage remains unchanged. Follow-up chest x-ray from today shows some limited improvement in the lower lobe consolidation bilaterally. The patient is on Levaquin regarding stenotrophomonas in the sputum. Rest of the antibiotic coverage is unchanged compared to yesterday as the patient remains on a combination of Zosyn, Eraxis and daptomycin. The patient is still producing serosanguineous fluid from the SANDY drain in order of 1 L over the past 24 hours. He is on low-dose norepinephrine running at 0.02 mcg/kg/min. In terms of blood work, the ABGs from today shows a pH of 7.41 with a pCO2 of 36 and a pO2 of 134. The white cell count is 18 with a hemoglobin of 7.9 and a platelet count of 293. BUN is 54 with a creatinine of 3.2 and a sodium levels at 136 and a potassium level is at 4.2. Fluid balance over the past 24 hours has been -1.7 L. The patient is producing adequate amount of urine output at this point in time. The patient is also on TPN for nutritional support. NG tube is in place and there are no signs of any active bleeding. Blood sugars at 94. On 11/11/2023, the patient is being seen for a follow-up. Remains intubated on the mechanical ventilator. Noted the patient was given a sedation holiday that lasted for several hours. During that time, the patient remained calm with occasional agitation. No significant recovery in the level of alertness and the patient remained encephalopathic. Ultimately, he became apneic and the sedation holiday was discontinued. Noted while having the sedation holiday yesterday, the patient was on a pressure support mode of mechanical ventilation. This morning, the patient is back on propofol which is running at 35 mcg/kg/min. He is on assist-control mode rate of 16, tidal volume of 500, FiO2 of 35% with a PEEP of 5. Blood gas showed a pH of 7.4 with a pCO2 of 37 and a pO2 of 125. Chest x-ray findings are essentially stable. There is interval clearing of the lower lobe pulmonary infiltrates and there is probably a left-sided pleural effusion. Orotracheal tubes are in good location. The white cell count of 17.6 with a hemoglobin of 7.6 and a platelet count of 315. Rest of the electrolytes show a BUN of 54 with a creatinine of 3.3 and the creatinine is stable compared to yesterday. BUN is 54. Serum bicarbonate 21 with a sodium levels of 137. The patient is afebrile. The patient is minimal amount of norepinephrine which is running at 0.01 mcg/kg/min. The patient receiving TPN for nutritional support. The overall fluid balance is 0 over the past 24 hours. No other significant events otherwise for now. SANDY drain output is more than 500 cc over the past 24 hours. Surgical wound site over the abdomen is dry clean and intact. NG output is minimal at this point in time. 11/12/2023, the patient is being seen for a follow-up. The patient has been off sedation since yesterday. The patient also tolerated a prolonged spontaneous breathing trial with a pressure support of 7 and a PEEP of 5 yesterday. Nevertheless, he was not extubated overnight and the patient was kept on mechanical ventilator and placed on assist-control. This morning, he remains off sedation. He is following some simple commands although his response is not distant. He remains on the mechanical ventilator assist-control mode with rate of 16, tidal volume of 450, FiO2 35% with a PEEP of 5. pH is at 7.37 with a pCO2 of 41 and a pO2 of 136. The patient is on minimal amount of pressors with norepinephrine running at 0.01 mcg/kg/min. Chest x-ray shows limited infiltration of the lung base bilaterally. TPN is running at a rate of 32. Output from the NG is minimal. SANDY drain is produced less than 500 cc overnight. Output is greenish and clinical needs to be cultured. The white cell count of 15.7, hemoglobin is at 7.1 with a platelet count of 314. BUN is 54 with a creatinine of 3.2 and a sodium low at 140 with a potassium level of 3.9. Antibiotic coverage remains unchanged. The patient remains on Levaquin, Eraxis, Zosyn, daptomycin. Patient was evaluated today on 11/13/2023 remains in the jake marginal at best. Patient remains on norepinephrine at 0.03 mcg/kg/min remains on TPN at 32 cc/h remains on 2 L nasal cannula, patient was extubated yesterday but remains extremely marginal at best. Mentation is borderline, patient is encephalopathic, could not carry on reasonable conversation with the patient, he seems to be confused. Remains on Eraxis daptomycin and Levaquin and Zosyn. Patient had a polymicrobial infection from his lower extremities and he may need more debridement specially on the right lower extremity, hence vascular surgery was reconsulted. Patient is going stenotrophomonas in the sputum and he is being followed by infectious disease, may need more debridement on his right lower extremity. Continues to have leukocytosis with WBC count of 15.1 hemoglobin is 7.1 basic metabolic profile is normal BUN is 54 creatinine 3.14 chest x-ray today showed bibasilar increased density consistent with atelectasis and/or infiltrate. Bibasilar Patient was reevaluated today on 11/14/2023, remains in the ICU, marginal at best. Still requiring norepinephrine at 0.02 mcg/kg/min patient is a very poor historian, he seems to be chronically ill, encephalopathic, follows simple instructions only like coughing and certain movements. Patient is on Eraxis, daptomycin, Levaquin and on Zosyn. Patient is supposed to have more debridement on his lower extremity cellulitis. This will be done by vascular surgery today. Patient is on TPN at 75 cc/h. Continues to have leukocytosis with WBC is 15.1 hemoglobin is 7 electrolytes are normal BUN is 52 creatinine 2.70, improving compared to the last few days. No chest x-ray was done today, however 1 was ordered to be done tomorrow Patient was seen on 11/15/2023, patient remains in the ICU, still requiring low- dose of norepinephrine at 0.02 mcg/kg/min patient is on 2 L nasal cannula, remains on multiple antibiotics and antifungal therapy including Eraxis, Zosyn and daptomycin Levaquin patient is receiving Lasix 60 mg daily his CODE STATUS was changed to DNR, and I am hoping we could discontinue his norepinephrine possibly today and hopefully send him to the regular medical floor. Patient remains strictly n.p.o., overall not much of a pattern changer and repairer the last 24 hours, chest x-ray is showing improvement in his bibasilar airspace disease and ate lectasis. Creatinine is 2.36, steadily improving. Objective - Vital Signs Vital signs: Vital Signs Temp 97.5 F L 11/15/23 12:00 Pulse 104 H 11/15/23 14:15 Resp 12 11/15/23 14:15 BP 103/63 11/06/23 03:00 Pulse Ox 100 11/15/23 14:15 FiO2 35 11/12/23 08:54 Intake & Output 11/14/23 11/15/23 11/15/23 18:59 06:59 18:59 Intake Total 2505.993 651.587 832.791 Output Total 2325 1275 1700 Balance 180.993 -623.413 -867.209 Weight 87 kg Intake: IV 388 88 361 Anidulafungin 100 mg In 100 100 Sodium Chloride 0.9% 100 ml @ 84 mls/hr IVPB DAILY [facility] Rx#:[id number] DAPTOmycin 500 mg In 100 Sodium Chloride 0.9% 50 ml @ 100 mls/hr IVPB Q48H [facility] Rx#:[id number] KVO 55 55 40 Piperacillin-Tazobactam 3 200 100 .375 gm In Sodium Chloride 0.9% 100 ml @ 25 mls/hr IVPB Q8HR [facility] Rx# :[id number] Pressure lines 33 33 21 Intake, IV Titration 2117.993 563.587 21.791 Amount Mvi, Adult No.4 with Vit 450 525 K 10 ml Trace (Conc-1Ml/ Dose) 1 ml Sodium Acetate 40 meq Potassium Acetate 40 meq Calcium Gluconate 1.5 gm Magnesium Sulfate gm 1 gm In Amino Acids 5 %/Dextrose 20 % 1,000 ml @ 75 mls/hr IV .BY DURATION [facility] Rx#: [id number] Norepinephrine 4 mg In 135.993 38.587 21.791 Sodium Chloride 0.9% 250 ml @ 0.03 MCG/KG/MIN 9. 851 mls/hr IV .Q24H [facility] Rx#:[id number] Potassium Chloride 20 meq 100 In Water For Injection 1 100ml.bag @ 50 mls/hr IVPB Q2H [facility] Rx#: [id number] Sodium Acetate 40 meq 1432 Potassium Acetate 40 meq Calcium Gluconate 1.5 gm Magnesium Sulfate gm 1 gm In Amino Acids 5 %/ Dextrose 20 % 1,000 ml @ 75 mls/hr IV .BY DURATION [facility] Rx#:[id number] TPN/PPN 450 Mvi, Adult No.4 with Vit 450 K 10 ml Trace (Conc-1Ml/ Dose) 1 ml Sodium Acetate 40 meq Potassium Acetate 40 meq Calcium Gluconate 1.5 gm Magnesium Sulfate gm 1 gm In Amino Acids 5 %/Dextrose 20 % 1,000 ml @ 75 mls/hr IV .BY DURATION [facility] Rx#: [id number] Output: Gastric Drainage 30 Drainage 300 460 Abdomen 0 300 Right 300 160 Urine 1995 1275 1240 Other: Voiding Method Indwelling Catheter Indwelling Catheter Indwelling Catheter # Bowel Movements 1 ABP, PAP, CO, CI - Last Documented Arterial Blood Pressure 109/56 - Exam GENERAL EXAM: Revealed a 63-year-old white male looks frail, chronically ill, encephalopathic, on 2 L nasal cannula HEAD: Normocephalic and atraumatic EYES: Normal reaction of pupils, equal size. NOSE: Clear with pink turbinates. THROAT: No erythema or exudates. NECK: No masses, no JVD. Right IJ central line catheter in place. CHEST: No chest wall deformity. LUNGS: Symmetrical chest expansion, fine crackles at the bases no rhonchi no wheezes CVS: Distant S1-S2, no S3 gallop, irregular rhythm. ABDOMEN: Midline abdominal incision with wound VAC, SANDY drain compressed and draining purulent material abdomen is soft, bowel sounds hypoactive, no appreciated organomegaly. The patient has a SANDY drain in place. SKIN: Bilateral lower extremities wrapped in postoperative dressing/Abhijeet Kerlix wrap, both lower extremities were unwrapped, and I was able to visualize the significant cellulitis in both lower extremities, obviously the right lower extremity cellulitis needs to have further debridement and vascular surgery was reconsulted CENTRAL NERVOUS SYSTEM: Patient seems to be confused, encephalopathic, does not follow simple instructions. EXTREMITIES: As noted above significant cellulitis of both lower extremities, with skin changes suggestive of ischemic changes in the right lower extremity throughout. Will definitely need further debridement. - Labs CBC & Chem 7: 11/15/23 04:20 11/15/23 04:20 Labs: Abnormal Lab Results - Last 24 Hours (Table) 11/14/23 11/15/23 11/15/23 Range/Units 17:44 04:20 04:20 WBC 15.2 H (3.8-10.6) k/uL RBC 2.75 L (4.30-5.90) m/uL Hgb 7.1 L (13.0-17.5) gm/dL Hct 23.9 L (39.0-53.0) % MCHC 29.5 L (31.0-37.0) g/dL RDW 22.7 H (11.5-15.5) % Neutrophils # 13.4 H (1.3-7.7) k/uL Lymphocytes # 0.8 L (1.0-4.8) k/uL Chloride 109 H (98-107) mmol/L BUN 56 H (9-20) mg/dL Creatinine 2.36 H (0.66-1.25) mg/dL Glucose 129 H (74-99) mg/dL POC Glucose (mg/dL) 112 H (70-110) mg/dL Microbiology - Last 24 Hours (Table) 11/12/23 12:10 Gram Stain - Final Other - Other Wound Culture - Final Enterococcus faecium VRE Doreen albicans 11/12/23 12:10 Anaerobic Culture - Preliminary Other - Other Assessment and Plan Assessment: Impression Acute hypoxic respiratory failure secondary to sepsis and septic shock related to severe cellulitis of both lower extremities and abdominal sepsis with perforated gastric ulcer and pneumoperitoneum requiring surgery as noted below. Perforated gastric ulcer and pneumoperitoneum, status post exploratory laparotomy with gastric ulcer repair with modified Jasvir patch on 11/05/2023, the patient is postop day #9 Bilateral hospital-acquired pneumonia patient is on multiple antibiotics. Septic shock with hypotension and shock, still requiring norepinephrine although the patient was extubated yesterday, but remains hemodynamically unstable. Sepsis and septic shock Severe nonanion gap metabolic acidosis, significantly improved. encephalopathy/delirium, acute metabolic encephalopathy Bilateral lower extremity wounds/cellulitis, status-post debridement on 11/03/2023. Wounds positive for polymicrobial organisms including Pseudomonas aeruginosa, MRSA, Enterococcus faecalis. Antibiotics being directed by infectious disease specialist Peripheral vascular disease, with recent history of femoral popliteal artery bypass on 06/06/2023, subsequently, developing wound infection and dehiscence, undergoing multiple excisional debridements since then. Atrial fibrillation with controlled ventricular response Normocytic, normochromic anemia Acute leukocytosis Acute kidney injury secondary to hypotension and ATN, nonoliguric and the patient has a positive urine output. The patient remains nonoliguric, the creatinine remained stable for now. History of hypertension History of hyperlipidemia History of coronary artery disease with previous stent placement History of AAA with previous endovascular repair History of alcoholism Chronic ongoing tobacco dependence Recommendation: Taper and possibly discontinue norepinephrine Continue antibiotics, and antifungal therapy Vascular surgery is following regarding his cellulitis and may need further debridement Continue TPN/nutritional support Continue strict I's and O's. Continue to monitor renal status on a daily basis, continue diuretics Considering CODE STATUS was changed to DNR, once norepinephrine is discontinued, patient will be sent to regular medical floor Continue GI DVT prophylaxis Will continue to follow Time with Patient: Less than 30
--- NOTE | 2023-11-15 15:16 | P.PN ---
Subjective Progress Note Date: 11/15/23 H&P Date: 10/30/23 Chief Complaint: Worsening bilateral lower legs, increased pain, edema and "split open" This is 63-year-old gentleman with past medical history significant for PAD, multiple vascular procedures including femoral-tibial bypass followed by wound development, dehiscence of his left lower extremity, status post recent excisional debridement of the left lower leg wound with skin substitute placement, excisional debridement of the left great toe wound and excisional debridement of right lower leg wound x 2 on 10/03/[address] Inman, vascular surgery, presented to the ER with worsening bilateral lower extremity pain, edema, reports right lower extremity "split open" over the last week with serous drainage. His visiting nurse evaluated patient on Monday recommending ER. Denies any chest pain, palpitations or shortness of breath. Denies nausea vomiting or diarrhea. Denies abdominal pain. Denies fever or chills. Denies lightheadedness, dizziness or focal deficits. Wound and blood cultures obtained, initiated on vancomycin in the ER. Tmax 101, WBC 16.3, increased to 19.67, CRP 12.6 .hemoglobin 7.7, platelets 468. Sodium 129, potassium 3.3, bicarb 19, BUN 10, creatinine 0.7. Lactic acid 2.2, improved with IV fluid hy dration, 1.1. Magnesium 1-repeat level ordered stat. 10/31/2023 Tmax 101. WBC decreased to 15.1. reports decreased appetite. Sodium decreased to 127, renal function stable. Potassium 3.9, magnesium 1.2 - supplements ordered. Positive pain of bilateral lower extremities. Evaluated by infectious disease, antibiotics adjusted to Zyvox and meropenem. Denies chest pain, palpitations or shortness of breath. 11/01/2023 wound cultures growing Pseudomonas and Enterococcus faecalis, vancomycin and penicillin sensitive, afebrile, WBC up to 20.06, antibiotics further adjusted to Zosyn and daptomycin. Renal function stable. IV fluids adjusted yesterday to D5.9 with sodium improved up to 130. 11/02/2023 maintained on IV antibiotics as per ID. Afebrile, WBC decreased to 17.3. Hemoglobin 9.1, platelets 523. Sodium 131 on IV fluids of D5.9. Potassium 3.8, magnesium 1.8, creatinine 0.9. Pain controlled , denies chest pain, palpitations or shortness of breath, maintaining O2 sats in the high 90s on room air. Scheduled for debridement and deep cultures tomorrow with vascular surgery. 11/07/2023 remains vent dependent with FiO2 35%/5 of PEEP. Maintained on diprovan, Levophed and bicarb drips. Bicarb 20, BUN 53, creatinine 2.84. continues on daptomycin, Eraxis, Zosyn. WBC 21, afebrile. Receiving potassium supplementation for potassium 3.3. Hemoglobin 7.1, platelets 477. 11/08/2023 Vent dependent, FiO2 35%/+5 of PEEP. Unsuccessful weaning trial yesterday, not following commands. Scheduled for another weaning trial today. Bicarb 23, bicarb drip discontinued. Levophed resumed after being off for few hours during the night. Echo reported EF 55 to 60%. Telemetry atrial f ibrillation with controlled ventricular rates, cardiology following. Staff reported earlier this morning right foot noted to be cooler, mottled, improved with rewrapping of Abhijeet wrap's -less tight. TPN ordered. 11/09/2023 weaning trials attempted yesterday, patient was not following commands , not opening eyes ,shaking his head [id number]. Vent dependent, FiO2 35%/+5 of PEEP. Repeat weaning trial scheduled for today. continues on Levophed. Telemetry atrial fibrillation with controlled ventricular rate. continues to have large output from SANDY drain. Afebrile, WBC increased to 15.4. Hemoglobin 7.2, platelet count 317. Bicarb 21, BUN 54, creatinine 3.27. Sputum culture reporting stenotrophomonas maltophilia, Doreen albicans. Maintained on Zosyn, Eraxis and vancomycin. 11/10/2023 Vent dependent FiO2 35%/+5 of PEEP. Maintained on Levophed. Telemetry atrial fibrillation, controlled ventricular rate. Failed weaning trial yesterday, reattempting today. Bicarb 21, BUN 54, creatinine 3.21. Afebrile, WBC increased to 18. Continues on daptomycin, Zosyn, Levaquin, Eraxis. 11/13/2023 extubated yesterday, maintaining O2 sats in the 90s on 2 L nasal cannula. Pressures soft ,maintained on Levophed. Tolerating TPN with minimal to no residual. Confused, pulling at lines. Sputum culture reported stenotrophomonas. continues on Eraxis, daptomycin, Levaquin and Zosyn. Afebrile, WBC 15.1. Hemoglobin 7.1, platelets 419. BUN 54, creatinine 3.14. 11/14/2023 maintained on 2 L nasal cannula maintaining O2 sats in the high 90s to 100% .hemoglobin 7 ,renal function continues to improve, creatinine 2.7 .remains pressor dependent. Afebrile, WBC remains at 15.1. continues on Eraxis, daptomycin, Levaquin and Zosyn. Continues on TPN.Confused. Right lower extremity reevaluated by vascular surgery with no surgical debridement recommended at this time; recommending eventual right lower extremity SFA revascularization when more stable. 11/15/2023 continues on Levophed. Diuresing with Lasix IV push as per nephrology. Renal function continues to improve, creatinine down to 2.36. maintaining O2 sats in the 90s on 2 L nasal cannula. Chest x-ray reporting stable .NPO, on TPN. Maintained on Eraxis, Zosyn, daptomycin and Levaquin as per infectious disease. Objective - Vital Signs Vital signs: Vital Signs Temp 97.5 F L 11/15/23 12:00 Pulse 104 H 11/15/23 14:15 Resp 12 11/15/23 14:15 BP 103/63 11/06/23 03:00 Pulse Ox 100 11/15/23 14:15 FiO2 35 11/12/23 08:54 Intake & Output 11/14/23 11/15/23 11/15/23 18:59 06:59 18:59 Intake Total 2505.993 651.587 832.791 Output Total 2325 1275 1700 Balance 180.993 -623.413 -867.209 Weight 87 kg Intake: IV 388 88 361 Anidulafungin 100 mg In 100 100 Sodium Chloride 0.9% 100 ml @ 84 mls/hr IVPB DAILY [facility] Rx#:[id number] DAPTOmycin 500 mg In 100 Sodium Chloride 0.9% 50 ml @ 100 mls/hr IVPB Q48H [facility] Rx#:[id number] KVO 55 55 40 Piperacillin-Tazobactam 3 200 100 .375 gm In Sodium Chloride 0.9% 100 ml @ 25 mls/hr IVPB Q8HR [facility] Rx# :[id number] Pressure lines 33 33 21 Intake, IV Titration 2117.993 563.587 21.791 Amount Mvi, Adult No.4 with Vit 450 525 K 10 ml Trace (Conc-1Ml/ Dose) 1 ml Sodium Acetate 40 meq Potassium Acetate 40 meq Calcium Gluconate 1.5 gm Magnesium Sulfate gm 1 gm In Amino Acids 5 %/Dextrose 20 % 1,000 ml @ 75 mls/hr IV .BY DURATION [facility] Rx#: [id number] Norepinephrine 4 mg In 135.993 38.587 21.791 Sodium Chloride 0.9% 250 ml @ 0.03 MCG/KG/MIN 9. 851 mls/hr IV .Q24H [facility] Rx#:[id number] Potassium Chloride 20 meq 100 In Water For Injection 1 100ml.bag @ 50 mls/hr IVPB Q2H [facility] Rx#: [id number] Sodium Acetate 40 meq 1432 Potassium Acetate 40 meq Calcium Gluconate 1.5 gm Magnesium Sulfate gm 1 gm In Amino Acids 5 %/ Dextrose 20 % 1,000 ml @ 75 mls/hr IV .BY DURATION [facility] Rx#:[id number] TPN/PPN 450 Mvi, Adult No.4 with Vit 450 K 10 ml Trace (Conc-1Ml/ Dose) 1 ml Sodium Acetate 40 meq Potassium Acetate 40 meq Calcium Gluconate 1.5 gm Magnesium Sulfate gm 1 gm In Amino Acids 5 %/Dextrose 20 % 1,000 ml @ 75 mls/hr IV .BY DURATION [facility] Rx#: [id number] Output: Gastric Drainage 30 Drainage 300 460 Abdomen 0 300 Right 300 160 Urine 1995 1275 1240 Other: Voiding Method Indwelling Catheter Indwelling Catheter Indwelling Catheter # Bowel Movements 1 ABP, PAP, CO, CI - Last Documented Arterial Blood Pressure 109/56 - Exam PHYSICAL EXAM: VITAL SIGNS: [As above] GENERAL: Alert, confused. HEENT: Normocephalic, atraumatic ,conjunctivae normal. NECK: Supple, no JVD. CARDIOVASCULAR: S1, S2 regular. Irregular, no murmur. RESPIRATION: Unlabored, equal air entry, fine bibasilar crackles ABDOMEN: status post surgery, wound VAC, SANDY drain with purulent bilious drainage, hypoactive LEGS: Bilateral lower extremities' Kerlix/Abhijeet wrap dressings clean dry and intact. NERVOUS SYSTEM: Limited, not following simple commands ,product safety professional at bedside Skin: Warm and dry, no rash - Labs CBC & Chem 7: 11/15/23 04:20 11/15/23 04:20 Labs: Abnormal Lab Results - Last 24 Hours (Table) 11/14/23 11/15/23 11/15/23 Range/Units 17:44 04:20 04:20 WBC 15.2 H (3.8-10.6) k/uL RBC 2.75 L (4.30-5.90) m/uL Hgb 7.1 L (13.0-17.5) gm/dL Hct 23.9 L (39.0-53.0) % MCHC 29.5 L (31.0-37.0) g/dL RDW 22.7 H (11.5-15.5) % Neutrophils # 13.4 H (1.3-7.7) k/uL Lymphocytes # 0.8 L (1.0-4.8) k/uL Chloride 109 H (98-107) mmol/L BUN 56 H (9-20) mg/dL Creatinine 2.36 H (0.66-1.25) mg/dL Glucose 129 H (74-99) mg/dL POC Glucose (mg/dL) 112 H (70-110) mg/dL Microbiology - Last 24 Hours (Table) 11/12/23 12:10 Gram Stain - Final Other - Other Wound Culture - Final Enterococcus faecium VRE Doreen albicans 11/12/23 12:10 Anaerobic Culture - Preliminary Other - Other Assessment and Plan Assessment: Sepsis secondary to infected bilateral lower extremity wounds, cellulitis, recent excisional debridement of left lower leg wound with skin substitute placement, excisional debridement of the left great toe wound and excisional debridement of the right lower leg wound x 2 on 10/03/[address] Inman , vascular surgery. Cultures currently growing Pseudomonas aeruginosa and Enterococcus faecalis and MRSA. Status post debridement with deep cultures 830 reporting Pseudomonas Morganelli, Enterococcus faecalis and MRSA Perforated peptic ulcer and pneumoperitoneum status post exploratory laparotomy with gastric ulcer repair, modified Jasvir patch on 11/05/2023 Acute hypoxic respiratory failure, mechanical ventilator dependent Hospital-acquired, bilateral pneumonia ;sputum culture reporting stenotrophomonas maltophilia, Doreen albicans Septic shock, requiring vasopressors Acute metabolic encephalopathy secondary to all the above Acute kidney injury, ATN secondary to sepsis, hypotension, stable. Metabolic acidosis secondary to the above, status post bicarb drip, improved History of Pseudomonas and VRE on last wound culture of left leg 10/03/2023, Lactic acidosis secondary to the above History of Left lower extremity skin dehiscence and wound infection,MSSA, status post excisional debridement and wound VAC. Left great toe ischemia status post excisional debridement History of left femoral tibial bypass secondary to critical limb ischemia History of aortic aneurysm with endovascular repair; Chronic Paroximal atrial fibrillation CAD, history of stent placement Essential hypertension Hyperlipidemia Nicotine dependence Daily alcohol use Noncompliance with medication regimen, patient is high risk for readmission. Iron deficient anemia Hypokalemia Hypomagnesemia Hyponatremia Plan: Continue current medication regimen, monitoring and symptomatic treatment. Weaning of pressor in progress .CODE STATUS changed to DNR .antibiotics as per ID .prognosis guarded given multiple complex medical issues. The impression and plan of care has been dictated as directed. : I performed a history and examination of this patient, discussed the same with the dictator. I agree with the dictator's note ,documented as a scribe. Any additional findings or plans will be noted.
[2023-11-15] MEDS: SODIUM ACETATE IV SCH (17:21)
[2023-11-15] MEDS: POTASSIUM ACETATE IV SCH (17:21)
[2023-11-15] MEDS: MAGNESIUM IV SCH (17:21)
[2023-11-15] MEDS: CALCIUM GLUCONATE IV SCH (17:21)
[2023-11-15 17:50] LABS: Glucose,Whole Blood 87 mg/dL (70-110)
[2023-11-16 00:08] LABS: Glucose,Whole Blood 113 mg/dL (70-110)
[2023-11-16 00:08] LABS: Glucose,Whole Blood 44 mg/dL (70-110)
[2023-11-16 01:25] LABS: African American GFR (CKD) 35 (>60 ml/min/1.73 sqM); Anion Gap 11 mmol/L; Blood Urea Nitrogen 59 mg/dL (9-20); Calcium 9.1 mg/dL (8.4-10.2); Carbon Dioxide 27 mmol/L (22-30); Chloride 103 mmol/L (98-107); Glucose 86 mg/dL (74-99); Non-African American GFR(CKD) 30 (>60 ml/min/1.73 sqM); Sodium 141 mmol/L (137-145)
--- NOTE | 2023-11-16 05:28 | XR ---
EXAMINATION TYPE: XR chest 1V portable DATE OF EXAM: 11/16/2023 CLINICAL HISTORY: G-tube placement confirmation. TECHNIQUE: Single AP portable semiupright view of the chest is obtained. COMPARISON: Chest x-ray from one day earlier FINDINGS: The nasogastric tube is not identified coursing the thorax. Stable right internal jugular central venous catheter. Persistent central vascular congestion. Cardiac silhouette size is stable an d upper limits of normal. Osseous structures are intact. IMPRESSION: Nasogastric tube not in satisfactory position.
--- NOTE | 2023-11-16 05:29 | XR ---
EXAMINATION TYPE: XR chest 1V DATE OF EXAM: 11/16/2023 CLINICAL HISTORY: NG tube confirmation. TECHNIQUE: Single AP portable semierect view of the chest is obtained. COMPARISON: Chest x-ray from earlier today FINDINGS: The nasogastric tube is now identified extending below diaphragm. Stable right internal ju gular central venous catheter. Persistent perihilar increased opacities and likely tiny bilateral ple ural effusions. Cardiac silhouette size is stable and upper limits of normal. Osseous structures are intact. IMPRESSION: The nasogastric tube is now in appropriate position.
[2023-11-16 05:58] LABS: Glucose,Whole Blood 120 mg/dL (70-110)
[2023-11-16] MEDS: LACTATED RINGERS 1,000 ML IV SCH (07:52)
[2023-11-16 08:59] LABS: Anisocytosis Moderate; Basophils % (A) 0 %; Eosinophils # (A) 0.2 k/uL (0-0.7); Eosinophils % (A) 1 %; HCT 22.1 % (39.0-53.0); Hypochromasia Marked; Lymphocytes # (A) 0.7 k/uL (1.0-4.8); Lymphocytes % (A) 5 %; MCH 26.3 pg (25.0-35.0); MCHC 30.2 g/dL (31.0-37.0); MCV 87.1 fL (80.0-100.0); Mean Platelet Volume 8.6; Microcytosis Slight; Monocytes # (A) 0.4 k/uL (0-1.0); Monocytes % (A) 3 %; Neutrophils # (A) 11.3 k/uL (1.3-7.7); Neutrophils % (A) 88 %; Platelet Count 397 k/uL (150-450); RBC 2.54 m/uL (4.30-5.90); RDW 22.9 % (11.5-15.5); WBC 12.8 k/uL (3.8-10.6)
[2023-11-16 09:11] LABS: HGB 6.7 gm/dL (13.0-17.5)
[2023-11-16] MEDS ORDERED: Phosphorus Replacement Protoco 1 EACH MISC MISCELLANE PRN (11:11)
--- NOTE | 2023-11-16 11:12 | P.PN ---
Subjective Patient is seen in follow-up for acute kidney injury. Renal function improving. Nonoliguric. On IV Lasix. Off Levophed. Receiving TPN. Transferred out of the ICU. Vital signs are stable. General: No acute distress. HEENT: NG tube noted. On nasal cannula. LUNGS: No audible rhonchi or wheezes. HEART: Rate and Rhythm are regular. ABDOMEN: No distention. SANDY drain noted. EXTREMITITES: Lower extremities wrapped. No drainage. 1+ edema. Objective - Vital Signs Vital signs: Vital Signs Temp 97.8 F 11/16/23 02:59 Pulse 86 11/16/23 08:43 Resp 16 11/16/23 02:59 BP 103/68 11/16/23 02:59 Pulse Ox 90 L 11/16/23 02:59 FiO2 35 11/12/23 08:54 Intake & Output 11/15/23 11/16/23 11/16/23 18:59 06:59 18:59 Intake Total 1314.791 Output Total 2515 525 1300 Balance -1200.209 -525 -1300 Weight 91.5 kg Intake: IV 543 Anidulafungin 100 mg In 100 Sodium Chloride 0.9% 100 ml @ 84 mls/hr IVPB DAILY [facility] Rx#:[id number] DAPTOmycin 500 mg In 100 Sodium Chloride 0.9% 50 ml @ 100 mls/hr IVPB Q48H [facility] Rx#:[id number] KVO 110 Piperacillin-Tazobactam 3 200 .375 gm In Sodium Chloride 0.9% 100 ml @ 25 mls/hr IVPB Q8HR [facility] Rx# :[id number] Pressure lines 33 Intake, IV Titration 21.791 Amount Norepinephrine 4 mg In 21.791 Sodium Chloride 0.9% 250 ml @ 0.03 MCG/KG/MIN 9. 851 mls/hr IV .Q24H [facility] Rx#:[id number] TPN/PPN 750 Mvi, Adult No.4 with Vit 150 K 10 ml Trace (Conc-1Ml/ Dose) 1 ml Sodium Acetate 36 meq Potassium Acetate 40 meq Calcium Gluconate 1.5 gm Magnesium Sulfate gm 1.25 gm Potassium Phosphate 3 mmol In Amino Acids 5 %/Dextrose 20 % 1,000 ml @ 75 mls/hr IV . BY DURATION [facility] Rx#: [id number] Mvi, Adult No.4 with Vit 600 K 10 ml Trace (Conc-1Ml/ Dose) 1 ml Sodium Acetate 40 meq Potassium Acetate 40 meq Calcium Gluconate 1.5 gm Magnesium Sulfate gm 1 gm In Amino Acids 5 %/Dextrose 20 % 1,000 ml @ 75 mls/hr IV .BY DURATION [facility] Rx#: [id number] Output: Drainage 560 325 Abdomen 300 Right 260 325 Urine 8787 [id number] 6515 Other: Voiding Method Indwelling Catheter Indwelling Catheter ABP, PAP, CO, CI - Last Documented Arterial Blood Pressure 121/71 - Labs CBC & Chem 7: 11/16/23 07:50 11/16/23 00:31 Labs: Abnormal Lab Results - Last 24 Hours (Table) 11/16/23 11/16/23 11/16/23 Range/Units 00:03 00:05 00:31 WBC (3.8-10.6) k/uL RBC (4.30-5.90) m/uL Hgb (13.0-17.5) gm/dL Hct (39.0-53.0) % MCHC (31.0-37.0) g/dL RDW (11.5-15.5) % Neutrophils # (1.3-7.7) k/uL Lymphocytes # (1.0-4.8) k/uL BUN 59 H (9-20) mg/dL Creatinine 2.22 H (0.66-1.25) mg/dL POC Glucose (mg/dL) 44 L* 113 H (70-110) mg/dL Phosphorus (2.5-4.5) mg/dL 11/16/23 11/16/23 11/16/23 Range/Units 05:56 07:50 07:50 WBC 12.8 H (3.8-10.6) k/uL RBC 2.54 L (4.30-5.90) m/uL Hgb 6.7 L* (13.0-17.5) gm/dL Hct 22.1 L (39.0-53.0) % MCHC 30.2 L (31.0-37.0) g/dL RDW 22.9 H (11.5-15.5) % Neutrophils # 11.3 H (1.3-7.7) k/uL Lymphocytes # 0.7 L (1.0-4.8) k/uL BUN (9-20) mg/dL Creatinine (0.66-1.25) mg/dL POC Glucose (mg/dL) 120 H (70-110) mg/dL Phosphorus 2.0 L (2.5-4.5) mg/dL Assessment and Plan Plan: Assessment: 1. Acute kidney injury secondary to ATN secondary to septic shock. No hydronephrosis noted on CAT scan. Baseline creatinine near 1 and peaked at 3.32 this admission -2.22 today. Nonoliguric. 2. Septic shock secondary to perforated viscus and lower extremity wounds. 3. Metabolic acidosis secondary to acute kidney injury. Improved. 4. Volume overload. Improving with diuresis. 5. Hyperphosphatemia secondary to acute kidney injury. Resolved. Now phosphorus on the lower end. 6. Anemia. Avoid IV iron in the setting of acute infection. On Aranesp. Hemo globin 6.7 today. 7. Hypokalemia from diuresis. Replaced. Plan: TPN per surgery. Replace phosphorus. Maintain IV Lasix. Transition to oral diuretics in the next 1 to 2 days. Consider transfusing a unit of blood. IV DDAVP x 1 dose today. Continue to monitor renal function and urine output.
[2023-11-16 11:30] LABS: Glucose,Whole Blood 120 mg/dL (70-110)
[2023-11-16] MEDS: SODIUM PHOSPHATE 15 MMOL in DEXTROSE 5% IN WATER 250 ML IVPB ONE (11:48)
--- NOTE | 2023-11-16 12:12 | P.PN ---
Subjective Progress Note Date: 11/16/23 H&P Date: 10/30/23 Chief Complaint: Worsening bilateral lower legs, increased pain, edema and "split open" This is 63-year-old gentleman with past medical history significant for PAD, multiple vascular procedures including femoral-tibial bypass followed by wound development, dehiscence of his left lower extremity, status post recent excisional debridement of the left lower leg wound with skin substitute placement, excisional debridement of the left great toe wound and excisional debridement of right lower leg wound x 2 on 10/03/[address] Inman, vascular surgery, presented to the ER with worsening bilateral lower extremity pain, edema, reports right lower extremity "split open" over the last week with serous drainage. His visiting nurse evaluated patient on Monday recommending ER. Denies any chest pain, palpitations or shortness of breath. Denies nausea vomiting or diarrhea. Denies abdominal pain. Denies fever or chills. Denies lightheadedness, dizziness or focal deficits. Wound and blood cultures obtained, initiated on vancomycin in the ER. Tmax 101, WBC 16.3, increased to 19.67, CRP 12.6 .hemoglobin 7.7, platelets 468. Sodium 129, potassium 3.3, bicarb 19, BUN 10, creatinine 0.7. Lactic acid 2.2, improved with IV fluid hy dration, 1.1. Magnesium 1-repeat level ordered stat. 10/31/2023 Tmax 101. WBC decreased to 15.1. reports decreased appetite. Sodium decreased to 127, renal function stable. Potassium 3.9, magnesium 1.2 - supplements ordered. Positive pain of bilateral lower extremities. Evaluated by infectious disease, antibiotics adjusted to Zyvox and meropenem. Denies chest pain, palpitations or shortness of breath. 11/01/2023 wound cultures growing Pseudomonas and Enterococcus faecalis, vancomycin and penicillin sensitive, afebrile, WBC up to 20.06, antibiotics further adjusted to Zosyn and daptomycin. Renal function stable. IV fluids adjusted yesterday to D5.9 with sodium improved up to 130. 11/02/2023 maintained on IV antibiotics as per ID. Afebrile, WBC decreased to 17.3. Hemoglobin 9.1, platelets 523. Sodium 131 on IV fluids of D5.9. Potassium 3.8, magnesium 1.8, creatinine 0.9. Pain controlled , denies chest pain, palpitations or shortness of breath, maintaining O2 sats in the high 90s on room air. Scheduled for debridement and deep cultures tomorrow with vascular surgery. 11/07/2023 remains vent dependent with FiO2 35%/5 of PEEP. Maintained on diprovan, Levophed and bicarb drips. Bicarb 20, BUN 53, creatinine 2.84. continues on daptomycin, Eraxis, Zosyn. WBC 21, afebrile. Receiving potassium supplementation for potassium 3.3. Hemoglobin 7.1, platelets 477. 11/08/2023 Vent dependent, FiO2 35%/+5 of PEEP. Unsuccessful weaning trial yesterday, not following commands. Scheduled for another weaning trial today. Bicarb 23, bicarb drip discontinued. Levophed resumed after being off for few hours during the night. Echo reported EF 55 to 60%. Telemetry atrial f ibrillation with controlled ventricular rates, cardiology following. Staff reported earlier this morning right foot noted to be cooler, mottled, improved with rewrapping of Abhijeet wrap's -less tight. TPN ordered. 11/09/2023 weaning trials attempted yesterday, patient was not following commands , not opening eyes ,shaking his head [id number]. Vent dependent, FiO2 35%/+5 of PEEP. Repeat weaning trial scheduled for today. continues on Levophed. Telemetry atrial fibrillation with controlled ventricular rate. continues to have large output from SANDY drain. Afebrile, WBC increased to 15.4. Hemoglobin 7.2, platelet count 317. Bicarb 21, BUN 54, creatinine 3.27. Sputum culture reporting stenotrophomonas maltophilia, Doreen albicans. Maintained on Zosyn, Eraxis and vancomycin. 11/10/2023 Vent dependent FiO2 35%/+5 of PEEP. Maintained on Levophed. Telemetry atrial fibrillation, controlled ventricular rate. Failed weaning trial yesterday, reattempting today. Bicarb 21, BUN 54, creatinine 3.21. Afebrile, WBC increased to 18. Continues on daptomycin, Zosyn, Levaquin, Eraxis. 11/13/2023 extubated yesterday, maintaining O2 sats in the 90s on 2 L nasal cannula. Pressures soft ,maintained on Levophed. Tolerating TPN with minimal to no residual. Confused, pulling at lines. Sputum culture reported stenotrophomonas. continues on Eraxis, daptomycin, Levaquin and Zosyn. Afebrile, WBC 15.1. Hemoglobin 7.1, platelets 419. BUN 54, creatinine 3.14. 11/14/2023 maintained on 2 L nasal cannula maintaining O2 sats in the high 90s to 100% .hemoglobin 7 ,renal function continues to improve, creatinine 2.7 .remains pressor dependent. Afebrile, WBC remains at 15.1. continues on Eraxis, daptomycin, Levaquin and Zosyn. Continues on TPN.Confused. Right lower extremity reevaluated by vascular surgery with no surgical debridement recommended at this time; recommending eventual right lower extremity SFA revascularization when more stable. 11/15/2023 continues on Levophed. Diuresing with Lasix IV push as per nephrology. Renal function continues to improve, creatinine down to 2.36. maintaining O2 sats in the 90s on 2 L nasal cannula. Chest x-ray reporting stable .NPO, on TPN. Maintained on Eraxis, Zosyn, daptomycin and Levaquin as per infectious disease. 11/16/2023 Levophed weaned off yesterday.transferred out of ICU currently on stepdown unit. Remains confused, attempting to pull out lines, NG tube. Maintained on TPN/lipids. Continues on Eraxis, daptomycin, Zosyn and Levaquin. Diuresing well on Lasix IV push with 24-hour WOLF reflecting a negative fluid balance. Hemoglobin 6.7, platelets 397, creatinine decreased to 2.22 ,phosphorus 2. Complains of abdominal pain. Objective - Vital Signs Vital signs: Vital Signs Temp 97.8 F 11/16/23 02:59 Pulse 86 11/16/23 08:43 Resp 16 11/16/23 02:59 BP 103/68 11/16/23 02:59 Pulse Ox 90 L 11/16/23 02:59 FiO2 35 11/12/23 08:54 Intake & Output 11/15/23 11/16/23 11/16/23 18:59 06:59 18:59 Intake Total 1314.791 Output Total 1149 525 1300 Balance -1200.209 -525 -1300 Weight 91.5 kg Intake: IV 543 Anidulafungin 100 mg In 100 Sodium Chloride 0.9% 100 ml @ 84 mls/hr IVPB DAILY [facility] Rx#:[id number] DAPTOmycin 500 mg In 100 Sodium Chloride 0.9% 50 ml @ 100 mls/hr IVPB Q48H [facility] Rx#:[id number] KVO 110 Piperacillin-Tazobactam 3 200 .375 gm In Sodium Chloride 0.9% 100 ml @ 25 mls/hr IVPB Q8HR [facility] Rx# :[id number] Pressure lines 33 Intake, IV Titration 21.791 Amount Norepinephrine 4 mg In 21.791 Sodium Chloride 0.9% 250 ml @ 0.03 MCG/KG/MIN 9. 851 mls/hr IV .Q24H [facility] Rx#:[id number] TPN/PPN 750 Mvi, Adult No.4 with Vit 150 K 10 ml Trace (Conc-1Ml/ Dose) 1 ml Sodium Acetate 36 meq Potassium Acetate 40 meq Calcium Gluconate 1.5 gm Magnesium Sulfate gm 1.25 gm Potassium Phosphate 3 mmol In Amino Acids 5 %/Dextrose 20 % 1,000 ml @ 75 mls/hr IV . BY DURATION [facility] Rx#: [id number] Mvi, Adult No.4 with Vit 600 K 10 ml Trace (Conc-1Ml/ Dose) 1 ml Sodium Acetate 40 meq Potassium Acetate 40 meq Calcium Gluconate 1.5 gm Magnesium Sulfate gm 1 gm In Amino Acids 5 %/Dextrose 20 % 1,000 ml @ 75 mls/hr IV .BY DURATION [facility] Rx#: [id number] Output: Drainage 560 325 Abdomen 300 Right 260 325 Urine [phone] Other: Voiding Method Indwelling Catheter Indwelling Catheter ABP, PAP, CO, CI - Last Documented Arterial Blood Pressure 121/71 - Exam PHYSICAL EXAM: VITAL SIGNS: [As above] GENERAL: Alert to person, confused-pulling at lines. HEENT: Normocephalic, atraumatic ,conjunctivae normal. NG tube present. NECK: Supple, no JVD. CARDIOVASCULAR: S1, S2 regular. Irregular, no murmur. RESPIRATION: Unlabored, equal air entry, fine bibasilar crackles ABDOMEN: status post surgery, wound VAC, SANDY drain with purulent bilious drainage LEGS: Bilateral lower extremities' dressings clean dry and intact. NERVOUS SYSTEM: Limited, not following simple commands ,chief of safety and protection at bedside Skin: Warm and dry, no rash - Labs CBC & Chem 7: 11/16/23 07:50 11/16/23 00:31 Labs: Abnormal Lab Results - Last 24 Hours (Table) 11/16/23 11/16/23 11/16/23 Range/Units 00:03 00:05 00:31 WBC (3.8-10.6) k/uL RBC (4.30-5.90) m/uL Hgb (13.0-17.5) gm/dL Hct (39.0-53.0) % MCHC (31.0-37.0) g/dL RDW (11.5-15.5) % Neutrophils # (1.3-7.7) k/uL Lymphocytes # (1.0-4.8) k/uL BUN 59 H (9-20) mg/dL Creatinine 2.22 H (0.66-1.25) mg/dL POC Glucose (mg/dL) 44 L* 113 H (70-110) mg/dL Phosphorus (2.5-4.5) mg/dL 11/16/23 11/16/23 11/16/23 Range/Units 05:56 07:50 07:50 WBC 12.8 H (3.8-10.6) k/uL RBC 2.54 L (4.30-5.90) m/uL Hgb 6.7 L* (13.0-17.5) gm/dL Hct 22.1 L (39.0-53.0) % MCHC 30.2 L (31.0-37.0) g/dL RDW 22.9 H (11.5-15.5) % Neutrophils # 11.3 H (1.3-7.7) k/uL Lymphocytes # 0.7 L (1.0-4.8) k/uL BUN (9-20) mg/dL Creatinine (0.66-1.25) mg/dL POC Glucose (mg/dL) 120 H (70-110) mg/dL Phosphorus 2.0 L (2.5-4.5) mg/dL 11/16/23 Range/Units 11:28 WBC (3.8-10.6) k/uL RBC (4.30-5.90) m/uL Hgb (13.0-17.5) gm/dL Hct (39.0-53.0) % MCHC (31.0-37.0) g/dL RDW (11.5-15.5) % Neutrophils # (1.3-7.7) k/uL Lymphocytes # (1.0-4.8) k/uL BUN (9-20) mg/dL Creatinine (0.66-1.25) mg/dL POC Glucose (mg/dL) 120 H (70-110) mg/dL Phosphorus (2.5-4.5) mg/dL Assessment and Plan Assessment: Sepsis secondary to infected bilateral lower extremity wounds, cellulitis, recent excisional debridement of left lower leg wound with skin substitute placement, excisional debridement of the left great toe wound and excisional debridement of the right lower leg wound x 2 on 10/03/[address] Inman , vascular surgery. Cultures currently growing Pseudomonas aeruginosa and Enterococcus faecalis and MRSA. Status post debridement with deep cultures 830 reporting Pseudomonas Morganelli, Enterococcus faecalis and MRSA Perforated peptic ulcer and pneumoperitoneum status post exploratory laparotomy with gastric ulcer repair, modified Jasvir patch on 11/05/2023 Acute hypoxic respiratory failure, mechanical ventilator dependent Hospital-acquired, bilateral pneumonia ;sputum culture reporting stenotrophomonas maltophilia, Doreen albicans Septic shock, requiring vasopressors Acute metabolic encephalopathy secondary to all the above Acute kidney injury, ATN secondary to sepsis, hypotension, stable. Metabolic acidosis secondary to the above, status post bicarb drip, improved History of Pseudomonas and VRE on last wound culture of left leg 10/03/2023, Lactic acidosis secondary to the above History of Left lower extremity skin dehiscence and wound infection,MSSA, status post excisional debridement and wound VAC. Left great toe ischemia status post excisional debridement History of left femoral tibial bypass secondary to critical limb ischemia History of aortic aneurysm with endovascular repair; Chronic Paroximal atrial fibrillation CAD, history of stent placement Essential hypertension Hyperlipidemia Nicotine dependence Daily alcohol use Noncompliance with medication regimen, patient is high risk for readmission. Iron deficient anemia Hypokalemia Hypomagnesemia Hyponatremia No code Plan: Continue current medication regimen, monitoring and symptomatic treatment. Transfuse 1 unit packed RBCs. Pain management. Antibiotics/antifungal as per ID .close monitoring of CBC, renal function with repeat labs ordered for a.m. prognosis guarded given multiple complex medical issues. The impression and plan of care has been dictated as directed. : I performed a history and examination of this patient, discussed the same with the dictator. I agree with the dictator's note ,documented as a scribe. Any additional findings or plans will be noted.
[2023-11-16] MEDS: SODIUM PHOSPHATE 30 MMOL in DEXTROSE 5% IN WATER 250 ML IVPB ONE (12:37)
--- NOTE | 2023-11-16 12:42 | P.PN ---
Subjective Progress Note Date: 11/15/23 Principal diagnosis: Reason for follow-up is bilateral lower extremity infected wounds and perforated peptic ulcer Patient is a 63-year-old male with a past medical history significant for hypertension hyperlipidemia coronary artery disease, PAD multiple vascular procedures including left femoral-tibial bypass and now has been dealing with the wound to the left lower extremity as well as wound to the right leg being managed in the outpatient setting by vascular surgery Center the hospital by the home care nurse concerning for worsening infection. Patient last wound culture positive for VRE and Pseudomonas. Patient is status post Sharp excisional debridement bilateral lower extremities along with cultures of the purulent material completed on 11/03/2023.Patient was taken to the OR 11/05/2023 found to have perforated gastric ulcer status post exploratory laparotomy repair of the perforated ulcer with modified Jasvir patch. On today's evaluation that is 11/15/2023, Patient is afebrile this morning patient is on 2 L nasal cannula oxygen is breathing comfortably patient awake but did not answer any question no vomiting diarrhea or any other changes reported by the nursing staff Patient white count slightly up to 15.2, creatinine is 2.36 Objective - Vital Signs Vital signs: Vital Signs Temp 97.5 F L 11/15/23 12:00 Pulse 105 H 11/15/23 12:00 Resp 19 11/15/23 12:00 BP 103/63 11/06/23 03:00 Pulse Ox 100 11/15/23 12:00 FiO2 35 11/12/23 08:54 Intake & Output 11/14/23 11/15/23 11/15/23 18:59 06:59 18:59 Intake Total 2505.993 651.587 744.791 Output Total 2325 1275 1450 Balance 180.993 -623.413 -705.209 Weight 87 kg Intake: IV 388 88 348 Anidulafungin 100 mg In 100 100 Sodium Chloride 0.9% 100 ml @ 84 mls/hr IVPB DAILY [facility] Rx#:[id number] DAPTOmycin 500 mg In 100 Sodium Chloride 0.9% 50 ml @ 100 mls/hr IVPB Q48H [facility] Rx#:[id number] KVO 55 55 30 Piperacillin-Tazobactam 3 200 100 .375 gm In Sodium Chloride 0.9% 100 ml @ 25 mls/hr IVPB Q8HR [facility] Rx# :[id number] Pressure lines 33 33 18 Intake, IV Titration 2117.993 563.587 21.791 Amount Mvi, Adult No.4 with Vit 450 525 K 10 ml Trace (Conc-1Ml/ Dose) 1 ml Sodium Acetate 40 meq Potassium Acetate 40 meq Calcium Gluconate 1.5 gm Magnesium Sulfate gm 1 gm In Amino Acids 5 %/Dextrose 20 % 1,000 ml @ 75 mls/hr IV .BY DURATION [facility] Rx#: [id number] Norepinephrine 4 mg In 135.993 38.587 21.791 Sodium Chloride 0.9% 250 ml @ 0.03 MCG/KG/MIN 9. 851 mls/hr IV .Q24H [facility] Rx#:[id number] Potassium Chloride 20 meq 100 In Water For Injection 1 100ml.bag @ 50 mls/hr IVPB Q2H [facility] Rx#: [id number] Sodium Acetate 40 meq 1432 Potassium Acetate 40 meq Calcium Gluconate 1.5 gm Magnesium Sulfate gm 1 gm In Amino Acids 5 %/ Dextrose 20 % 1,000 ml @ 75 mls/hr IV .BY DURATION [facility] Rx#:[id number] TPN/PPN 375 Mvi, Adult No.4 with Vit 375 K 10 ml Trace (Conc-1Ml/ Dose) 1 ml Sodium Acetate 40 meq Potassium Acetate 40 meq Calcium Gluconate 1.5 gm Magnesium Sulfate gm 1 gm In Amino Acids 5 %/Dextrose 20 % 1,000 ml @ 75 mls/hr IV .BY DURATION [facility] Rx#: [id number] Output: Gastric Drainage 30 Drainage 300 460 Abdomen 0 300 Right 300 160 Urine 1995 1275 990 Other: Voiding Method Indwelling Catheter Indwelling Catheter Indwelling Catheter # Bowel Movements 1 ABP, PAP, CO, CI - Last Documented Arterial Blood Pressure 105/58 - Exam GENERAL DESCRIPTION: Middle-age male lying in bed in no distress RESPIRATORY SYSTEM: Unlabored breathing , decreased breath sounds at bases HEART: S1 S2 regular rate and rhythm , ABDOMEN: Soft , mild distention EXTREMITIES: Bilateral lower extremity wounds are currently dressed - Labs CBC & Chem 7: 11/16/23 07:50 11/16/23 00:31 Labs: Abnormal Lab Results - Last 24 Hours (Table) 11/14/23 11/15/23 11/15/23 Range/Units 17:44 04:20 04:20 WBC 15.2 H (3.8-10.6) k/uL RBC 2.75 L (4.30-5.90) m/uL Hgb 7.1 L (13.0-17.5) gm/dL Hct 23.9 L (39.0-53.0) % MCHC 29.5 L (31.0-37.0) g/dL RDW 22.7 H (11.5-15.5) % Neutrophils # 13.4 H (1.3-7.7) k/uL Lymphocytes # 0.8 L (1.0-4.8) k/uL Chloride 109 H (98-107) mmol/L BUN 56 H (9-20) mg/dL Creatinine 2.36 H (0.66-1.25) mg/dL Glucose 129 H (74-99) mg/dL POC Glucose (mg/dL) 112 H (70-110) mg/dL Microbiology - Last 24 Hours (Table) 11/12/23 12:10 Gram Stain - Final Other - Other Wound Culture - Final Enterococcus faecium VRE Doreen albicans 11/12/23 12:10 Anaerobic Culture - Preliminary Other - Other Assessment and Plan (1) Bilateral lower leg cellulitis Current Visit: Yes Status: Acute Code(s): L03.116 - CELLULITIS OF LEFT LOWER LIMB; L03.115 - CELLULITIS OF RIGHT LOWER LIMB SNOMED Code(s): 259173224 (2) Open wound of both lower extremities Current Visit: Yes Status: Acute Code(s): S81.801A - UNSPECIFIED OPEN WOUND, RIGHT LOWER LEG, INITIAL ENCOUNTER; S81.802A - UNSPECIFIED OPEN WOUND, LEFT LOWER LEG, INITIAL ENCOUNTER SNOMED Code(s): 99520406 (3) Sepsis Current Visit: Yes Status: Acute Code(s): A41.9 - SEPSIS, UNSPECIFIED ORGANISM SNOMED Code(s): 20884341 (4) Pneumonia Current Visit: Yes Status: Acute Code(s): J18.9 - PNEUMONIA, UNSPECIFIED ORGANISM SNOMED Code(s): 194366693 Plan: 1patient presented to hospital with sepsis in this patient who did have a fever tachycardia elevated white count source is likely bilateral lower extremity wound and cellulitis with more extensive wound to the left lower extremity in this patient who did have a history of PAD and has multiple vascular procedure last wound culture done from the right leg has been Pseudomonas and VRE that was done on 10/03/2023, culture done this admission are growing Pseudomonas aerug inosa Enterococcus faecalis that is not VRE and MRSA 2patient is status post debridement and deep culture completed on 11/03/2023 which did grow multiple pathogen including Pseudomonas Morganella Enterococcus faecalis and MRSA 3patient did have a perforated peptic ulcer status post laparotomy and modified Jasvir patch 4-patient sputum is growing stenotrophomonas concerning for gram-negative pneu monia 5-patient has been reevaluated by vascular surgery regarding ischemic right leg planning for possible revascularization once stable, 6patient is afebrile however white count is slightly up need to be monitored d closely, patient is currently being treated with daptomycin, Zosyn Levaquin and Eraxis prognosis guarded Dictation was produced using [employer] dictation software. please excuse any gr ammatical, word or spelling errors. Time with Patient: Less than 30
--- NOTE | 2023-11-16 12:43 | P.PN ---
Subjective Progress Note Date: 11/16/23 Principal diagnosis: Reason for follow-up is bilateral lower extremity infected wounds and perforated peptic ulcer Patient is a 63-year-old male with a past medical history significant for hypertension hyperlipidemia coronary artery disease, PAD multiple vascular procedures including left femoral-tibial bypass and now has been dealing with the wound to the left lower extremity as well as wound to the right leg being managed in the outpatient setting by vascular surgery Center the hospital by the home care nurse concerning for worsening infection. Patient last wound culture positive for VRE and Pseudomonas. Patient is status post Sharp excisional debridement bilateral lower extremities along with cultures of the purulent material completed on 11/03/2023.Patient was taken to the OR 11/05/2023 found to have perforated gastric ulcer status post exploratory laparotomy repair of the perforated ulcer with modified Jasvir patch. On today's evaluation that is 11/16/2023,the patient continues to be afebrile he is breathing comfortably on 2 L with current oxygen patient did have sitter at the bedside he is awake seem to be slightly restless did not answer any question no vomiting or diarrhea has been reported. The patient white count is down to 12.8 creatinine is 2.22 Objective - Vital Signs Vital signs: Vital Signs Temp 97.8 F 11/16/23 02:59 Pulse 86 11/16/23 08:43 Resp 16 11/16/23 02:59 BP 103/68 11/16/23 02:59 Pulse Ox 90 L 11/16/23 02:59 FiO2 35 11/12/23 08:54 Intake & Output 11/15/23 11/16/23 11/16/23 18:59 06:59 18:59 Intake Total 1314.791 Output Total 2515 525 1300 Balance -1200.209 -525 -1300 Weight 91.5 kg Intake: IV 543 Anidulafungin 100 mg In 100 Sodium Chloride 0.9% 100 ml @ 84 mls/hr IVPB DAILY [facility] Rx#:[id number] DAPTOmycin 500 mg In 100 Sodium Chloride 0.9% 50 ml @ 100 mls/hr IVPB Q48H [facility] Rx#:[id number] KVO 110 Piperacillin-Tazobactam 3 200 .375 gm In Sodium Chloride 0.9% 100 ml @ 25 mls/hr IVPB Q8HR [facility] Rx# :[id number] Pressure lines 33 Intake, IV Titration 21.791 Amount Norepinephrine 4 mg In 21.791 Sodium Chloride 0.9% 250 ml @ 0.03 MCG/KG/MIN 9. 851 mls/hr IV .Q24H [facility] Rx#:[id number] TPN/PPN 750 Mvi, Adult No.4 with Vit 150 K 10 ml Trace (Conc-1Ml/ Dose) 1 ml Sodium Acetate 36 meq Potassium Acetate 40 meq Calcium Gluconate 1.5 gm Magnesium Sulfate gm 1.25 gm Potassium Phosphate 3 mmol In Amino Acids 5 %/Dextrose 20 % 1,000 ml @ 75 mls/hr IV . BY DURATION [facility] Rx#: [id number] Mvi, Adult No.4 with Vit 600 K 10 ml Trace (Conc-1Ml/ Dose) 1 ml Sodium Acetate 40 meq Potassium Acetate 40 meq Calcium Gluconate 1.5 gm Magnesium Sulfate gm 1 gm In Amino Acids 5 %/Dextrose 20 % 1,000 ml @ 75 mls/hr IV .BY DURATION [facility] Rx#: [id number] Output: Drainage 560 325 Abdomen 300 Right 260 325 Urine [phone] Other: Voiding Method Indwelling Catheter Indwelling Catheter ABP, PAP, CO, CI - Last Documented Arterial Blood Pressure 121/71 - Exam GENERAL DESCRIPTION: Middle-age male lying in bed in no distress RESPIRATORY SYSTEM: Unlabored breathing , decreased breath sounds at bases HEART: S1 S2 regular rate and rhythm , ABDOMEN: Soft , mild distention EXTREMITIES: Bilateral lower extremity wounds are currently dressed - Labs CBC & Chem 7: 11/16/23 07:50 11/16/23 00:31 Labs: Abnormal Lab Results - Last 24 Hours (Table) 11/16/23 11/16/23 11/16/23 Range/Units 00:03 00:05 00:31 WBC (3.8-10.6) k/uL RBC (4.30-5.90) m/uL Hgb (13.0-17.5) gm/dL Hct (39.0-53.0) % MCHC (31.0-37.0) g/dL RDW (11.5-15.5) % Neutrophils # (1.3-7.7) k/uL Lymphocytes # (1.0-4.8) k/uL BUN 59 H (9-20) mg/dL Creatinine 2.22 H (0.66-1.25) mg/dL POC Glucose (mg/dL) 44 L* 113 H (70-110) mg/dL Phosphorus (2.5-4.5) mg/dL 11/16/23 11/16/23 11/16/23 Range/Units 05:56 07:50 07:50 WBC 12.8 H (3.8-10.6) k/uL RBC 2.54 L (4.30-5.90) m/uL Hgb 6.7 L* (13.0-17.5) gm/dL Hct 22.1 L (39.0-53.0) % MCHC 30.2 L (31.0-37.0) g/dL RDW 22.9 H (11.5-15.5) % Neutrophils # 11.3 H (1.3-7.7) k/uL Lymphocytes # 0.7 L (1.0-4.8) k/uL BUN (9-20) mg/dL Creatinine (0.66-1.25) mg/dL POC Glucose (mg/dL) 120 H (70-110) mg/dL Phosphorus 2.0 L (2.5-4.5) mg/dL 11/16/23 Range/Units 11:28 WBC (3.8-10.6) k/uL RBC (4.30-5.90) m/uL Hgb (13.0-17.5) gm/dL Hct (39.0-53.0) % MCHC (31.0-37.0) g/dL RDW (11.5-15.5) % Neutrophils # (1.3-7.7) k/uL Lymphocytes # (1.0-4.8) k/uL BUN (9-20) mg/dL Creatinine (0.66-1.25) mg/dL POC Glucose (mg/dL) 120 H (70-110) mg/dL Phosphorus (2.5-4.5) mg/dL Assessment and Plan (1) Bilateral lower leg cellulitis Current Visit: Yes Status: Acute Code(s): L03.116 - CELLULITIS OF LEFT LOWER LIMB; L03.115 - CELLULITIS OF RIGHT LOWER LIMB SNOMED Code(s): 827071433 (2) Open wound of both lower extremities Current Visit: Yes Status: Acute Code(s): S81.801A - UNSPECIFIED OPEN WOUND, RIGHT LOWER LEG, INITIAL ENCOUNTER; S81.802A - UNSPECIFIED OPEN WOUND, LEFT LOWE R LEG, INITIAL ENCOUNTER SNOMED Code(s): 77326753 (3) Sepsis Current Visit: Yes Status: Acute Code(s): A41.9 - SEPSIS, UNSPECIFIED ORGANISM SNOMED Code(s): 51982166 (4) Pneumonia Current Visit: Yes Status: Acute Code(s): J18.9 - PNEUMONIA, UNSPECIFIED ORGANISM SNOMED Code(s): 994954850 Plan: 1patient presented to hospital with sepsis in this patient who did have a fever tachycardia elevated white count source is likely bilateral lower extremity wound and cellulitis with more extensive wound to the left lower extremity in this patient who did have a history of PAD and has multiple vascular procedure last wound culture done from the right leg has been Pseudomonas and VRE that was done on 10/03/2023, culture done this admission are growing Pseudomonas aeruginosa Enterococcus faecalis that is not VRE and MRSA 2patient is status post debridement and deep culture completed on 11/03/2023 which did grow multiple pathogen including Pseudomonas Morganella Enterococcus faecalis and MRSA 3patient did have a perforated peptic ulcer status post laparotomy and modified Jasvir patch 4-patient sputum is growing stenotrophomonas concerning for gram-negative pneumonia 5-patient has been reevaluated by vascular surgery regarding ischemic right leg planning for possible revascularization once stable, 6patient is afebrile and the patient white count is trending down down to 12,000 today, 7-patient will be treated with a broad spec antibiotic in the form of daptomycin, Zosyn Levaquin and Eraxis keeping in mind multiple sites of infection and multiple pathogen that has been growing from the culture Dictation was produced using [employer] dictation software. please excuse any grammatical, word or spelling errors.
[2023-11-16] MEDS: DESMOPRESSIN ACETATE 24 MCG in SODIUM CHLORIDE 0.9% 50 ML IVPB ONE (12:53)
--- NOTE | 2023-11-16 14:05 | P.PN ---
Subjective Progress Note Date: 11/16/23 This is a 63-year-old male patient who is treated for sepsis and septic shock secondary to severe lower bilateral lower extremity cellulitis as well as a perforated gastric ulcer with pneumoperitoneum requiring intubation mechanical ventilation and status post laparotomy and gastric ulcer repair with modified Jasvir patch on 11/05/2023. Postoperative day #10. Transferred out of the intensive care unit yesterday. He is currently resting in bed. Awake and alert. He does not make good eye contact. Not answering any yes or no questions. Maintaining O2 saturations in the 90s on 2 L/min per nasal cannula. Has been afebrile. Hemodynamically stable. X-ray shows persistent perihilar opacities and likely small bilateral pleural effusions. Nasogastric tube remains in place. Receiving 1 unit of blood for a hemoglobin today of 6.7. Platelets 397. 12.8. Sodium 141. Potassium 4.0. Bicarb 27. BUN 59. Creatinine 2.22. Glucose 120. He remains on Eraxis, daptomycin, Levaquin and Zosyn. Receiving TPN for nutritional support at 95 mL/h. Objective - Vital Signs Vital signs: Vital Signs Temp 98.2 F 11/16/23 11:15 Pulse 80 11/16/23 11:15 Resp 16 11/16/23 11:15 BP 100/66 11/16/23 11:15 Pulse Ox 92 L 11/16/23 11:15 FiO2 35 11/12/23 08:54 Intake & Output 11/15/23 11/16/23 11/16/23 18:59 06:59 18:59 Intake Total 1314.791 Output Total 251 525 1300 Balance -1200.209 -525 -1300 Weight 91.5 kg Intake: IV 543 Anidulafungin 100 mg In 100 Sodium Chloride 0.9% 100 ml @ 84 mls/hr IVPB DAILY [facility] Rx#:[id number] DAPTOmycin 500 mg In 100 Sodium Chloride 0.9% 50 ml @ 100 mls/hr IVPB Q48H [facility] Rx#:[id number] KVO 110 Piperacillin-Tazobactam 3 200 .375 gm In Sodium Chloride 0.9% 100 ml @ 25 mls/hr IVPB Q8HR [facility] Rx# :[id number] Pressure lines 33 Intake, IV Titration 21.791 Amount Norepinephrine 4 mg In 21.791 Sodium Chloride 0.9% 250 ml @ 0.03 MCG/KG/MIN 9. 851 mls/hr IV .Q24H [facility] Rx#:[id number] TPN/PPN 750 Mvi, Adult No.4 with Vit 150 K 10 ml Trace (Conc-1Ml/ Dose) 1 ml Sodium Acetate 36 meq Potassium Acetate 40 meq Calcium Gluconate 1.5 gm Magnesium Sulfate gm 1.25 gm Potassium Phosphate 3 mmol In Amino Acids 5 %/Dextrose 20 % 1,000 ml @ 75 mls/hr IV . BY DURATION [facility] Rx#: [id number] Mvi, Adult No.4 with Vit 600 K 10 ml Trace (Conc-1Ml/ Dose) 1 ml Sodium Acetate 40 meq Potassium Acetate 40 meq Calcium Gluconate 1.5 gm Magnesium Sulfate gm 1 gm In Amino Acids 5 %/Dextrose 20 % 1,000 ml @ 75 mls/hr IV .BY DURATION [facility] Rx#: [id number] Output: Drainage 560 325 Abdomen 300 Right 260 325 Urine [phone] Other: Voiding Method Indwelling Catheter Indwelling Catheter Indwelling Catheter ABP, PAP, CO, CI - Last Documented Arterial Blood Pressure 121/71 - Exam GENERAL EXAM: Revealed a 63-year-old male, chronically ill, encephalopathic, on 2 L nasal cannula HEAD: Normocephalic and atraumatic EYES: Normal reaction of pupils, equal size. NOSE: Clear with pink turbinates. THROAT: No erythema or exudates. NECK: No masses, no JVD. Right IJ central line catheter in place. CHEST: No chest wall deformity. LUNGS: Symmetrical chest expansion, fine crackles at the bases no rhonchi no wheezes CVS: Distant S1-S2, no S3 gallop, irregular rhythm. ABDOMEN: Midline abdominal incision with wound VAC, SANDY drain compressed and draining purulent material abdomen is soft, bowel sounds hypoactive, no appreciated organomegaly. The patient has a SANDY drain in place. SKIN: Bilateral lower extremities wrapped in postoperative dressing/Abhijeet Kerlix wrap, both lower extremities were unwrapped, and I was able to visualize the significant cellulitis in both lower extremities, obviously the right lower extremity cellulitis needs to have further debridement and vascular surgery was reconsulted CENTRAL NERVOUS SYSTEM: Patient seems to be confused, encephalopathic, does not follow simple instructions. EXTREMITIES: As noted above significant cellulitis of both lower extremities, with skin changes suggestive of ischemic changes in the right lower extremity throughout. Will definitely need further debridement. - Labs CBC & Chem 7: 11/16/23 07:50 11/16/23 00:31 Labs: Abnormal Lab Results - Last 24 Hours (Table) 11/16/23 11/16/23 11/16/23 Range/Units 00:03 00:05 00:31 WBC (3.8-10.6) k/uL RBC (4.30-5.90) m/uL Hgb (13.0-17.5) gm/dL Hct (39.0-53.0) % MCHC (31.0-37.0) g/dL RDW (11.5-15.5) % Neutrophils # (1.3-7.7) k/uL Lymphocytes # (1.0-4.8) k/uL BUN 59 H (9-20) mg/dL Creatinine 2.22 H (0.66-1.25) mg/dL POC Glucose (mg/dL) 44 L* 113 H (70-110) mg/dL Phosphorus (2.5-4.5) mg/dL Crossmatch 11/16/23 11/16/23 11/16/23 Range/Units 05:56 07:50 07:50 WBC 12.8 H (3.8-10.6) k/uL RBC 2.54 L (4.30-5.90) m/uL Hgb 6.7 L* (13.0-17.5) gm/dL Hct 22.1 L (39.0-53.0) % MCHC 30.2 L (31.0-37.0) g/dL RDW 22.9 H (11.5-15.5) % Neutrophils # 11.3 H (1.3-7.7) k/uL Lymphocytes # 0.7 L (1.0-4.8) k/uL BUN (9-20) mg/dL Creatinine (0.66-1.25) mg/dL POC Glucose (mg/dL) 120 H (70-110) mg/dL Phosphorus 2.0 L (2.5-4.5) mg/dL Crossmatch 11/16/23 11/16/23 Range/Units 11:28 12:11 WBC (3.8-10.6) k/uL RBC (4.30-5.90) m/uL Hgb (13.0-17.5) gm/dL Hct (39.0-53.0) % MCHC (31.0-37.0) g/dL RDW (11.5-15.5) % Neutrophils # (1.3-7.7) k/uL Lymphocytes # (1.0-4.8) k/uL BUN (9-20) mg/dL Creatinine (0.66-1.25) mg/dL POC Glucose (mg/dL) 120 H (70-110) mg/dL Phosphorus (2.5-4.5) mg/dL Crossmatch See Detail Assessment and Plan Assessment: Acute hypoxic respiratory failure secondary to sepsis and septic shock related to severe cellulitis of both lower extremities and abdominal sepsis with per forated gastric ulcer and pneumoperitoneum requiring surgery as noted below. Perforated gastric ulcer and pneumoperitoneum, status post exploratory laparotomy with gastric ulcer repair with modified Jasvir patch on 11/05/2023, the patient is postop day #9 Bilateral hospital-acquired pneumonia patient is on multiple antibiotics. Septic shock with hypotension and shock, still requiring norepinephrine although the patient was extubated yesterday, but remains hemodynamically unstable. Sepsis and septic shock Severe nonanion gap metabolic acidosis, significantly improved. Encephalopathy/delirium, acute metabolic encephalopathy Bilateral lower extremity wounds/cellulitis, status-post debridement on 11/03/2023. Wounds positive for polymicrobial organisms including Pseudomonas aeruginosa, MRSA, Enterococcus faecalis. Antibiotics being directed by infectious disease specialist Peripheral vascular disease, with recent history of femoral popliteal artery bypass on 06/06/2023, subsequently, developing wound infection and dehiscence, undergoing multiple excisional debridements since then. Atrial fibrillation with controlled ventricular response Normocytic, normochromic anemia Acute leukocytosis Acute kidney injury secondary to hypotension and ATN, nonoliguric and the patient has a positive urine output. The patient remains nonoliguric, the creatinine remained stable for now. History of hypertension History of hyperlipidemia History of coronary artery disease with previous stent placement History of AAA with previous endovascular repair History of alcoholism Chronic ongoing tobacco dependence Poor overall functional performance based on the above-mentioned multiple multiple comorbidities Plan: The patient was seen and evaluated Labs and medications reviewed Continue the current treatment plan Antibiotics per ID services Stable and on 2 L nasal cannula Overall prognosis is poor DNR CODE STATUS We will continue to follow Plan is for [facility] at discharge I have personally seen and examined the patient, performed the documentation and the assessment and plan as written. Number of minutes spent on the visit: 10.
[2023-11-16] MEDS: DAPTOmycin 500 MG in SODIUM CHLORIDE 0.9% 50 ML IVPB SCH (14:10)
[2023-11-16 14:46] VITALS: BMI 29.7
--- NOTE | 2023-11-16 15:25 | P.PN ---
Subjective Progress Note Date: 11/16/23 CHIEF COMPLAINT: Perforated gastric ulcer HISTORY OF PRESENT ILLNESS: patient is postop day #11 status post repair of perforated gastric ulcer. Patient has bile leak. SANDY drain showing 80 mL of bilious output this morning. Wound VAC changed yesterday. Patient continues to have restraints and a bedside sitter. He was transferred out of the ICU to the cardiac floor. Afebrile. WBC 12.8 Hgb 6.7 patient receiving a unit of blood. PHYSICAL EXAM: VITAL SIGNS: Reviewed. GENERAL: No acute distress. ABDOMEN: Soft. nondistended. Tender with palpation. wound VAC intact with serosanguineous ascites fluid. SANDY drain with bile ASSESSMENT: 1. Perforated gastric ulcer 2. Sepsis and septic shock 3. History of alcoholism 4. Severe protein calorie malnutrition 5. Bile leak PLAN: -Continue to monitor bile leak. No plans for surgery at this time -Keep patient n.p.o. -Continue NG tube for decompression -Continue to monitor SANDY drain output -Continue TPN for nutrition support -Continue supportive care -Antibiotics per ID service -Continue IV Protonix Physician Business Resiliency Manager note has been reviewed by physician. Signing provider agrees with the documented findings, assessment, and plan of care. Objective - Vital Signs Vital signs: Vital Signs Temp 98.2 F 11/16/23 11:15 Pulse 80 11/16/23 14:00 Resp 16 11/16/23 14:00 BP 100/66 11/16/23 11:15 Pulse Ox 92 L 11/16/23 11:15 FiO2 35 11/12/23 08:54 Intake & Output 11/15/23 11/16/23 11/16/23 18:59 06:59 18:59 Intake Total 1314.791 Output Total 2515 525 1300 Balance -1200.209 -525 -1300 Weight 91.5 kg 91.5 kg Intake: IV 543 Anidulafungin 100 mg In 100 Sodium Chloride 0.9% 100 ml @ 84 mls/hr IVPB DAILY [facility] Rx#:[id number] DAPTOmycin 500 mg In 100 Sodium Chloride 0.9% 50 ml @ 100 mls/hr IVPB Q48H [facility] Rx#:[id number] KVO 110 Piperacillin-Tazobactam 3 200 .375 gm In Sodium Chloride 0.9% 100 ml @ 25 mls/hr IVPB Q8HR [facility] Rx# :[id number] Pressure lines 33 Intake, IV Titration 21.791 Amount Norepinephrine 4 mg In 21.791 Sodium Chloride 0.9% 250 ml @ 0.03 MCG/KG/MIN 9. 851 mls/hr IV .Q24H [facility] Rx#:[id number] TPN/PPN 750 Mvi, Adult No.4 with Vit 150 K 10 ml Trace (Conc-1Ml/ Dose) 1 ml Sodium Acetate 36 meq Potassium Acetate 40 meq Calcium Gluconate 1.5 gm Magnesium Sulfate gm 1.25 gm Potassium Phosphate 3 mmol In Amino Acids 5 %/Dextrose 20 % 1,000 ml @ 75 mls/hr IV . BY DURATION [facility] Rx#: [id number] Mvi, Adult No.4 with Vit 600 K 10 ml Trace (Conc-1Ml/ Dose) 1 ml Sodium Acetate 40 meq Potassium Acetate 40 meq Calcium Gluconate 1.5 gm Magnesium Sulfate gm 1 gm In Amino Acids 5 %/Dextrose 20 % 1,000 ml @ 75 mls/hr IV .BY DURATION [facility] Rx#: [id number] Output: Drainage 560 325 Abdomen 300 Right 260 325 Urine [phone] Other: Voiding Method Indwelling Catheter Indwelling Catheter Indwelling Catheter ABP, PAP, CO, CI - Last Documented Arterial Blood Pressure 121/71 - Labs CBC & Chem 7: 11/16/23 07:50 11/16/23 00:31 Labs: Abnormal Lab Results - Last 24 Hours (Table) 11/16/23 11/16/23 11/16/23 Range/Units 00:03 00:05 00:31 WBC (3.8-10.6) k/uL RBC (4.30-5.90) m/uL Hgb (13.0-17.5) gm/dL Hct (39.0-53.0) % MCHC (31.0-37.0) g/dL RDW (11.5-15.5) % Neutrophils # (1.3-7.7) k/uL Lymphocytes # (1.0-4.8) k/uL BUN 59 H (9-20) mg/dL Creatinine 2.22 H (0.66-1.25) mg/dL POC Glucose (mg/dL) 44 L* 113 H (70-110) mg/dL Phosphorus (2.5-4.5) mg/dL Crossmatch 11/16/23 11/16/23 11/16/23 Range/Units 05:56 07:50 07:50 WBC 12.8 H (3.8-10.6) k/uL RBC 2.54 L (4.30-5.90) m/uL Hgb 6.7 L* (13.0-17.5) gm/dL Hct 22.1 L (39.0-53.0) % MCHC 30.2 L (31.0-37.0) g/dL RDW 22.9 H (11.5-15.5) % Neutrophils # 11.3 H (1.3-7.7) k/uL Lymphocytes # 0.7 L (1.0-4.8) k/uL BUN (9-20) mg/dL Creatinine (0.66-1.25) mg/dL POC Glucose (mg/dL) 120 H (70-110) mg/dL Phosphorus 2.0 L (2.5-4.5) mg/dL Crossmatch 11/16/23 11/16/23 Range/Units 11:28 12:11 WBC (3.8-10.6) k/uL RBC (4.30-5.90) m/uL Hgb (13.0-17.5) gm/dL Hct (39.0-53.0) % MCHC (31.0-37.0) g/dL RDW (11.5-15.5) % Neutrophils # (1.3-7.7) k/uL Lymphocytes # (1.0-4.8) k/uL BUN (9-20) mg/dL Creatinine (0.66-1.25) mg/dL POC Glucose (mg/dL) 120 H (70-110) mg/dL Phosphorus (2.5-4.5) mg/dL Crossmatch See Detail
--- NOTE | 2023-11-16 16:00 | P.PN ---
Subjective Progress Note Date: 11/16/23 Principal diagnosis: Bilateral lower extremity wounds Patient seen and examined today as a follow-up. He has been transferred out of the ICU and is on cardiac stepdown unit. Still confused and has a sitter at the bedside with restraints as he is trying to pull out his NG tube. Lower extremities without any change. No acute changes through the night. Objective - Vital Signs Vital signs: Vital Signs Temp 98.0 F 11/16/23 15:20 Pulse 100 11/16/23 15:20 Resp 16 11/16/23 15:20 BP 104/60 11/16/23 15:20 Pulse Ox 100 11/16/23 15:20 FiO2 35 11/12/23 08:54 Intake & Output 11/15/23 11/16/23 11/16/23 18:59 06:59 18:59 Intake Total 1314.791 Output Total 2515 525 1300 Balance -1200.209 -525 -1300 Weight 91.5 kg 91.5 kg Intake: IV 543 Anidulafungin 100 mg In 100 Sodium Chloride 0.9% 100 ml @ 84 mls/hr IVPB DAILY [facility] Rx#:[id number] DAPTOmycin 500 mg In 100 Sodium Chloride 0.9% 50 ml @ 100 mls/hr IVPB Q48H [facility] Rx#:[id number] KVO 110 Piperacillin-Tazobactam 3 200 .375 gm In Sodium Chloride 0.9% 100 ml @ 25 mls/hr IVPB Q8HR [facility] Rx# :[id number] Pressure lines 33 Intake, IV Titration 21.791 Amount Norepinephrine 4 mg In 21.791 Sodium Chloride 0.9% 250 ml @ 0.03 MCG/KG/MIN 9. 851 mls/hr IV .Q24H [facility] Rx#:[id number] TPN/PPN 750 Mvi, Adult No.4 with Vit 150 K 10 ml Trace (Conc-1Ml/ Dose) 1 ml Sodium Acetate 36 meq Potassium Acetate 40 meq Calcium Gluconate 1.5 gm Magnesium Sulfate gm 1.25 gm Potassium Phosphate 3 mmol In Amino Acids 5 %/Dextrose 20 % 1,000 ml @ 75 mls/hr IV . BY DURATION [facility] Rx#: [id number] Mvi, Adult No.4 with Vit 600 K 10 ml Trace (Conc-1Ml/ Dose) 1 ml Sodium Acetate 40 meq Potassium Acetate 40 meq Calcium Gluconate 1.5 gm Magnesium Sulfate gm 1 gm In Amino Acids 5 %/Dextrose 20 % 1,000 ml @ 75 mls/hr IV .BY DURATION [facility] Rx#: [id number] Output: Drainage 560 325 Abdomen 300 Right 260 325 Urine [phone] Other: Voiding Method Indwelling Catheter Indwelling Catheter Indwelling Catheter ABP, PAP, CO, CI - Last Documented Arterial Blood Pressure 121/71 - Exam General appearance: The patient is sleeping. HET: Head is normocephalic and atraumatic. Neck: Supple. Abdomen: Soft, nondistended. Extremities: Lower extremity edema improved. Lateral lower extremities with dressings clean dry and intact. Feet are warm and dry with good capillary refill. Neurological: Currently sleeping. In soft restraints with a sitter at bedside. - Labs CBC & Chem 7: 11/16/23 07:50 11/16/23 00:31 Labs: Abnormal Lab Results - Last 24 Hours (Table) 11/16/23 11/16/23 11/16/23 Range/Units 00:03 00:05 00:31 WBC (3.8-10.6) k/uL RBC (4.30-5.90) m/uL Hgb (13.0-17.5) gm/dL Hct (39.0-53.0) % MCHC (31.0-37.0) g/dL RDW (11.5-15.5) % Neutrophils # (1.3-7.7) k/uL Lymphocytes # (1.0-4.8) k/uL BUN 59 H (9-20) mg/dL Creatinine 2.22 H (0.66-1.25) mg/dL POC Glucose (mg/dL) 44 L* 113 H (70-110) mg/dL Phosphorus (2.5-4.5) mg/dL Crossmatch 11/16/23 11/16/23 11/16/23 Range/Units 05:56 07:50 07:50 WBC 12.8 H (3.8-10.6) k/uL RBC 2.54 L (4.30-5.90) m/uL Hgb 6.7 L* (13.0-17.5) gm/dL Hct 22.1 L (39.0-53.0) % MCHC 30.2 L (31.0-37.0) g/dL RDW 22.9 H (11.5-15.5) % Neutrophils # 11.3 H (1.3-7.7) k/uL Lymphocytes # 0.7 L (1.0-4.8) k/uL BUN (9-20) mg/dL Creatinine (0.66-1.25) mg/dL POC Glucose (mg/dL) 120 H (70-110) mg/dL Phosphorus 2.0 L (2.5-4.5) mg/dL Crossmatch 11/16/23 11/16/23 Range/Units 11:28 12:11 WBC (3.8-10.6) k/uL RBC (4.30-5.90) m/uL Hgb (13.0-17.5) gm/dL Hct (39.0-53.0) % MCHC (31.0-37.0) g/dL RDW (11.5-15.5) % Neutrophils # (1.3-7.7) k/uL Lymphocytes # (1.0-4.8) k/uL BUN (9-20) mg/dL Creatinine (0.66-1.25) mg/dL POC Glucose (mg/dL) 120 H (70-110) mg/dL Phosphorus (2.5-4.5) mg/dL Crossmatch See Detail Assessment and Plan Assessment: 1. Bilateral lower extremity wound status postdebridement 2. Perforated gastric ulcer status post repair 3. Acute ventilatory dependent respiratory failure, improved 4. Hypotensive requiring pressors 5. Altered mental status 6. Peripheral arterial disease. Right SFA occlusion. Plan: 1. Continue with ICU supportive care. 2. Continue lower extremity local wound care daily 3. No plans at this time for surgical debridement. Previous angiogram reviewed and patient likely would benefit from right lower extremity SFA revascularization versus right AKA once patient is more stable. No plans at this time for surgical debridement. Continue local wound care we will continue to follow along. The impression and plan of care has been dictated as directed. Dr. Isaac I performed a history and examination of this patient, discussed the same with the dictator. I agree with the dictator's note ,documented as a scribe. Any additional findings or plans will be noted.
[2023-11-16 17:56] LABS: Glucose,Whole Blood 109 mg/dL (70-110)
[2023-11-16] MEDS: FUROSEMIDE 10 MG/ML 2 ML VIAL IV PRN (20:12)
[2023-11-16] MEDS: SODIUM ACETATE IV SCH (21:35)
[2023-11-16] MEDS: MAGNESIUM IV SCH (21:35)
[2023-11-16] MEDS: POTASSIUM ACETATE IV SCH (21:35)
[2023-11-16] MEDS: CALCIUM GLUCONATE IV SCH (21:35)
[2023-11-16] MEDS ORDERED: CALCIUM GLUCONATE IV SCH (22:30)
[2023-11-16] MEDS ORDERED: POTASSIUM ACETATE IV SCH (22:30)
[2023-11-16] MEDS ORDERED: SODIUM ACETATE IV SCH (22:30)
[2023-11-16] MEDS ORDERED: MAGNESIUM IV SCH (22:30)
[2023-11-17 00:02] LABS: Glucose,Whole Blood 127 mg/dL (70-110)
[2023-11-17 05:55] LABS: Glucose,Whole Blood 133 mg/dL (70-110)
[2023-11-17 07:00] LABS: Anisocytosis Moderate; Basophils % (A) 0 %; Eosinophils # (A) 0.2 k/uL (0-0.7); Eosinophils % (A) 2 %; HCT 24.2 % (39.0-53.0); HGB 7.1 gm/dL (13.0-17.5); Hypochromasia Marked; Lymphocytes # (A) 0.8 k/uL (1.0-4.8); Lymphocytes % (A) 6 %; MCH 25.9 pg (25.0-35.0); MCHC 29.3 g/dL (31.0-37.0); MCV 88.3 fL (80.0-100.0); Mean Platelet Volume 7.7; Microcytosis Slight; Monocytes # (A) 0.5 k/uL (0-1.0); Monocytes % (A) 5 %; Neutrophils # (A) 10.4 k/uL (1.3-7.7); Neutrophils % (A) 86 %; Platelet Count 458 k/uL (150-450); Poikilocytosis Slight; RBC 2.74 m/uL (4.30-5.90); RDW 21.8 % (11.5-15.5); WBC 12.1 k/uL (3.8-10.6)
[2023-11-17 07:33] LABS: African American GFR (CKD) 38 (>60 ml/min/1.73 sqM); Anion Gap 4 mmol/L; Blood Urea Nitrogen 55 mg/dL (9-20); Calcium 8.5 mg/dL (8.4-10.2); Carbon Dioxide 35 mmol/L (22-30); Chloride 105 mmol/L (98-107); Glucose 121 mg/dL (74-99); Magnesium 1.9 mg/dL (1.6-2.3); Non-African American GFR(CKD) 33 (>60 ml/min/1.73 sqM); Phosphorus 3.2 mg/dL (2.5-4.5); Potassium 3.2 mmol/L (3.5-5.1); Sodium 144 mmol/L (137-145)
--- NOTE | 2023-11-17 10:37 | P.PN ---
Subjective Progress Note Date: 11/17/23 Principal diagnosis: Bilateral lower extremity wounds Patient seen and examined today as a follow-up. Patient currently resting. Still confused and has a sitter at the bedside with restraints. Lower extremities without any change. No acute changes through the night. Abdominal wound VAC in place. SANDY drain in place with bile output. He has been afebrile. Objective - Vital Signs Vital signs: Vital Signs Temp 97.6 F 11/17/23 03:31 Pulse 100 11/17/23 03:31 Resp 16 11/17/23 03:31 BP 119/79 11/17/23 03:31 Pulse Ox 98 11/17/23 03:31 FiO2 35 11/12/23 08:54 Intake & Output 11/16/23 11/17/23 11/17/23 18:59 06:59 18:59 Intake Total 0 278 Output Total 2300 740 Balance -2300 -462 Weight 91.5 kg 89 kg Intake: Blood Product 0 278 Rc Pheresis 2 As3 Unit 0 278 [id number] Output: Drainage 40 Abdomen 40 Urine 2300 700 Other: Voiding Method Indwelling Catheter Indwelling Catheter ABP, PAP, CO, CI - Last Documented Arterial Blood Pressure 121/71 - Exam General appearance: The patient is sleeping. Sitter at bedside. Soft wrist restraints in place. HET: Head is normocephalic and atraumatic. Neck: Supple. Abdomen: Soft, nondistended. Extremities: Lower extremity edema improved. Lateral lower extremities with dressings clean dry and intact. Feet are warm and dry with good capillary refill. Patent left bypass. Neurological: Currently sleeping. In soft restraints with a sitter at bedside. - Labs CBC & Chem 7: 11/17/23 06:24 11/17/23 06:24 Labs: Abnormal Lab Results - Last 24 Hours (Table) 11/16/23 11/16/23 11/16/23 Range/Units 07:50 07:50 11:28 WBC 12.8 H (3.8-10.6) k/uL RBC 2.54 L (4.30-5.90) m/uL Hgb 6.7 L* (13.0-17.5) gm/dL Hct 22.1 L (39.0-53.0) % MCHC 30.2 L (31.0-37.0) g/dL RDW 22.9 H (11.5-15.5) % Plt Count (150-450) k/uL Neutrophils # 11.3 H (1.3-7.7) k/uL Lymphocytes # 0.7 L (1.0-4.8) k/uL Potassium (3.5-5.1) mmol/L Carbon Dioxide (22-30) mmol/L BUN (9-20) mg/dL Creatinine (0.66-1.25) mg/dL Glucose (74-99) mg/dL POC Glucose (mg/dL) 120 H (70-110) mg/dL Phosphorus 2.0 L (2.5-4.5) mg/dL Crossmatch 11/16/23 11/16/23 11/17/23 Range/Units 12:11 23:55 05:53 WBC (3.8-10.6) k/uL RBC (4.30-5.90) m/uL Hgb (13.0-17.5) gm/dL Hct (39.0-53.0) % MCHC (31.0-37.0) g/dL RDW (11.5-15.5) % Plt Count (150-450) k/uL Neutrophils # (1.3-7.7) k/uL Lymphocytes # (1.0-4.8) k/uL Potassium (3.5-5.1) mmol/L Carbon Dioxide (22-30) mmol/L BUN (9-20) mg/dL Creatinine (0.66-1.25) mg/dL Glucose (74-99) mg/dL POC Glucose (mg/dL) 127 H 133 H (70-110) mg/dL Phosphorus (2.5-4.5) mg/dL Crossmatch See Detail 11/17/23 11/17/23 Range/Units 06:24 06:24 WBC 12.1 H (3.8-10.6) k/uL RBC 2.74 L (4.30-5.90) m/uL Hgb 7.1 L (13.0-17.5) gm/dL Hct 24.2 L (39.0-53.0) % MCHC 29.3 L (31.0-37.0) g/dL RDW 21.8 H (11.5-15.5) % Plt Count 458 H (150-450) k/uL Neutrophils # 10.4 H (1.3-7.7) k/uL Lymphocytes # 0.8 L (1.0-4.8) k/uL Potassium 3.2 L (3.5-5.1) mmol/L Carbon Dioxide 35 H (22-30) mmol/L BUN 55 H (9-20) mg/dL Creatinine 2.07 H (0.66-1.25) mg/dL Glucose 121 H (74-99) mg/dL POC Glucose (mg/dL) (70-110) mg/dL Phosphorus (2.5-4.5) mg/dL Crossmatch Microbiology - Last 24 Hours (Table) 11/12/23 12:10 Anaerobic Culture - Final Other - Other 11/12/23 12:10 Gram Stain - Final Other - Other Wound Culture - Final Enterococcus faecium VRE Doreen albicans Assessment and Plan Assessment: 1. Bilateral lower extremity wound status postdebridement 2. Perforated gastric ulcer status post repair 3. Acute ventilatory dependent respiratory failure, improved 4. Hypotensive requiring pressors 5. Altered mental status 6. Peripheral arterial disease. Right SFA occlusion. Plan: 1. Continue lower extremity local wound care daily 2. Previous angiogram reviewed and patient likely would benefit from right lower extremity SFA revascularization versus right AKA once patient is more stable. No plans at this time for surgical debridement. Continue local wound care we will continue to follow along. 3. Rest of medical management per primary medical team 4. Surgical management per per general surgery The impression and plan of care has been dictated as directed. Dr. Inman I performed a history and examination of this patient, discussed the same with the dictator. I agree with the dictator's note ,documented as a scribe. Any additional findings or plans will be noted.
--- NOTE | 2023-11-17 11:03 | P.PN ---
Subjective Patient is seen in follow-up for acute kidney injury. Renal function improving. Nonoliguric. On IV Lasix. Off Levophed. Receiving TPN. Poor historian. Sitter present at bedside. Vital signs are stable. General: No acute distress. HEENT: NG tube noted. On nasal cannula. LUNGS: No audible rhonchi or wheezes. HEART: Rate and Rhythm are regular. ABDOMEN: No distention. EXTREMITITES: Lower extremities wrapped. No drainage. 1+ edema. Objective - Vital Signs Vital signs: Vital Signs Temp 97.6 F 11/17/23 03:31 Pulse 111 H 11/17/23 08:49 Resp 16 11/17/23 03:31 BP 119/79 11/17/23 03:31 Pulse Ox 99 11/17/23 08:36 FiO2 35 11/12/23 08:54 Intake & Output 11/16/23 11/17/23 11/17/23 18:59 06:59 18:59 Intake Total 0 278 Output Total 2300 740 550 Balance -2300 -462 -550 Weight 91.5 kg 89 kg Intake: Blood Product 0 278 Rc Pheresis 2 As3 Unit 0 278 [id number] Output: Drainage 40 Abdomen 40 Urine 2300 700 550 Other: Voiding Method Indwelling Catheter Indwelling Catheter ABP, PAP, CO, CI - Last Documented Arterial Blood Pressure 121/71 - Labs CBC & Chem 7: 11/17/23 06:24 11/17/23 06:24 Labs: Abnormal Lab Results - Last 24 Hours (Table) 11/16/23 11/16/23 11/16/23 Range/Units 11:28 12:11 23:55 WBC (3.8-10.6) k/uL RBC (4.30-5.90) m/uL Hgb (13.0-17.5) gm/dL Hct (39.0-53.0) % MCHC (31.0-37.0) g/dL RDW (11.5-15.5) % Plt Count (150-450) k/uL Neutrophils # (1.3-7.7) k/uL Lymphocytes # (1.0-4.8) k/uL Potassium (3.5-5.1) mmol/L Carbon Dioxide (22-30) mmol/L BUN (9-20) mg/dL Creatinine (0.66-1.25) mg/dL Glucose (74-99) mg/dL POC Glucose (mg/dL) 120 H 127 H (70-110) mg/dL Crossmatch See Detail 11/17/23 11/17/23 11/17/23 Range/Units 05:53 06:24 06:24 WBC 12.1 H (3.8-10.6) k/uL RBC 2.74 L (4.30-5.90) m/uL Hgb 7.1 L (13.0-17.5) gm/dL Hct 24.2 L (39.0-53.0) % MCHC 29.3 L (31.0-37.0) g/dL RDW 21.8 H (11.5-15.5) % Plt Count 458 H (150-450) k/uL Neutrophils # 10.4 H (1.3-7.7) k/uL Lymphocytes # 0.8 L (1.0-4.8) k/uL Potassium 3.2 L (3.5-5.1) mmol/L Carbon Dioxide 35 H (22-30) mmol/L BUN 55 H (9-20) mg/dL Creatinine 2.07 H (0.66-1.25) mg/dL Glucose 121 H (74-99) mg/dL POC Glucose (mg/dL) 133 H (70-110) mg/dL Crossmatch Microbiology - Last 24 Hours (Table) 11/12/23 12:10 Anaerobic Culture - Final Other - Other 11/12/23 12:10 Gram Stain - Final Other - Other Wound Culture - Final Enterococcus faecium VRE Doreen albicans Assessment and Plan Plan: Assessment: 1. Acute kidney injury secondary to ATN secondary to septic shock. No hydronephrosis noted on CAT scan. Baseline creatinine near 1 and peaked at 3.32 this admission -2.07 today. Nonoliguric. 2. Septic shock secondary to perforated viscus and lower extremity wounds. 3. Metabolic acidosis secondary to acute kidney injury. Resolved. 4. Volume overload. Improved with diuresis. 5. Hyperphosphatemia secondary to acute kidney injury. Resolved. Subsequently phosphorus was low and had to be replaced. Now normal. 6. Anemia. Avoid IV iron in the setting of acute infection. On Aranesp. St atus post blood transfusion this admission. Also received IV DDAVP. 7. Hypokalemia from diuresis. Plan: TPN per surgery. Replace potassium. Decrease dose of Lasix to 40 mg IV once daily. Transition to oral diuretics once able to take oral meds. Continue to monitor renal function and urine output. Okay to place PICC line in the dominant arm.
--- NOTE | 2023-11-17 11:05 | P.PN ---
Subjective Progress Note Date: 11/17/23 CHIEF COMPLAINT: Perforated gastric ulcer HISTORY OF PRESENT ILLNESS: patient is postop day #12 status post repair of perforated gastric ulcer. Patient has bile leak. SANDY drain showing 40 mL of bilious output total through the night and this AM. Wound VAC changed yesterday. Patient continues to have restraints and a bedside sitter. Afebrile. WBC 12.1 HGB 6.7 to 7.1 after 1 unit PRBC PHYSICAL EXAM: VITAL SIGNS: Reviewed. GENERAL: No acute distress. ABDOMEN: Soft. nondistended. Tender with palpation. wound VAC intact with serosanguineous ascites fluid. SANDY drain with bile ASSESSMENT: 1. Perforated gastric ulcer 2. Sepsis and septic shock 3. History of alcoholism 4. Severe protein calorie malnutrition 5. Bile leak PLAN: -Continue to monitor bile leak. No plans for surgery at this time -Keep patient n.p.o. -Continue NG tube for decompression -Continue to monitor SANDY drain output -Continue TPN for nutrition support -Continue supportive care -Antibiotics per ID service -Continue restraints and bedside sitter -Continue IV Protonix Physician Mail Sorter note has been reviewed by physician. Signing provider agrees with the documented findings, assessment, and plan of care. Objective - Vital Signs Vital signs: Vital Signs Temp 97.6 F 11/17/23 03:31 Pulse 111 H 11/17/23 08:49 Resp 16 11/17/23 03:31 BP 119/79 11/17/23 03:31 Pulse Ox 99 11/17/23 08:36 FiO2 35 11/12/23 08:54 Intake & Output 11/16/23 11/17/23 11/17/23 18:59 06:59 18:59 Intake Total 0 278 Output Total 2300 740 550 Balance -2300 -462 -550 Weight 91.5 kg 89 kg Intake: Blood Product 0 278 Rc Pheresis 2 As3 Unit 0 278 [id number] Output: Drainage 40 Abdomen 40 Urine 2300 700 550 Other: Voiding Method Indwelling Catheter Indwelling Catheter ABP, PAP, CO, CI - Last Documented Arterial Blood Pressure 121/71 - Labs CBC & Chem 7: 11/17/23 06:24 11/17/23 06:24 Labs: Abnormal Lab Results - Last 24 Hours (Table) 11/16/23 11/16/23 11/16/23 Range/Units 11:28 12:11 23:55 WBC (3.8-10.6) k/uL RBC (4.30-5.90) m/uL Hgb (13.0-17.5) gm/dL Hct (39.0-53.0) % MCHC (31.0-37.0) g/dL RDW (11.5-15.5) % Plt Count (150-450) k/uL Neutrophils # (1.3-7.7) k/uL Lymphocytes # (1.0-4.8) k/uL Potassium (3.5-5.1) mmol/L Carbon Dioxide (22-30) mmol/L BUN (9-20) mg/dL Creatinine (0.66-1.25) mg/dL Glucose (74-99) mg/dL POC Glucose (mg/dL) 120 H 127 H (70-110) mg/dL Crossmatch See Detail 11/17/23 11/17/23 11/17/23 Range/Units 05:53 06:24 06:24 WBC 12.1 H (3.8-10.6) k/uL RBC 2.74 L (4.30-5.90) m/uL Hgb 7.1 L (13.0-17.5) gm/dL Hct 24.2 L (39.0-53.0) % MCHC 29.3 L (31.0-37.0) g/dL RDW 21.8 H (11.5-15.5) % Plt Count 458 H (150-450) k/uL Neutrophils # 10.4 H (1.3-7.7) k/uL Lymphocytes # 0.8 L (1.0-4.8) k/uL Potassium 3.2 L (3.5-5.1) mmol/L Carbon Dioxide 35 H (22-30) mmol/L BUN 55 H (9-20) mg/dL Creatinine 2.07 H (0.66-1.25) mg/dL Glucose 121 H (74-99) mg/dL POC Glucose (mg/dL) 133 H (70-110) mg/dL Crossmatch Microbiology - Last 24 Hours (Table) 11/12/23 12:10 Anaerobic Culture - Final Other - Other 11/12/23 12:10 Gram Stain - Final Other - Other Wound Culture - Final Enterococcus faecium VRE Doreen albicans
[2023-11-17 11:25] LABS: Glucose,Whole Blood 140 mg/dL (70-110)
--- NOTE | 2023-11-17 12:32 | P.PN ---
Subjective Progress Note Date: 11/17/23 This is a 63-year-old male patient who is treated for sepsis and septic shock secondary to severe lower bilateral lower extremity cellulitis as well as a perforated gastric ulcer with pneumoperitoneum requiring intubation mechanical ventilation and status post laparotomy and gastric ulcer repair with modified Jasvir patch on 11/05/2023. Postoperative day #10. Transferred out of the intensive care unit yesterday. He is currently resting in bed. Awake and alert. He does not make good eye contact. Not answering any yes or no questions. Maintaining O2 saturations in the 90s on 2 L/min per nasal cannula. Has been afebrile. Hemodynamically stable. X-ray shows persistent perihilar opacities and likely small bilateral pleural effusions. Nasogastric tube remains in place. Receiving 1 unit of blood for a hemoglobin today of 6.7. Platelets 397. 12.8. Sodium 141. Potassium 4.0. Bicarb 27. BUN 59. Creatinine 2.22. Glucose 120. He remains on Eraxis, daptomycin, Levaquin and Zosyn. Receiving TPN for nutritional support at 95 mL/h. The patient is seen today November 17, 2023 in follow-up on the selective care unit. He is currently resting in bed. He is maintaining good O2 saturations in the 90s on room air. Afebrile. Hemodynamically stable. He is being nourished with TPN at 95 mL/h. Nasogastric tube remains in place. Triple-lumen catheter remains in place. He is continued on Eraxis, daptomycin, Levaquin, Zosyn. He remains on bronchodilators. Santyl to lower extremity wounds. He is postoperative day #12 of a repair of a perforated gastric ulcer. SANDY drain remains in place. Wound VAC remains in place. The patient remains confused. fish rod maker at the bedside. White count 12.1. Hemoglobin 7.1. Platelets 458. Sodium 144. Potassium 3.2. Bicarb 35. BUN 55. Creatinine 2.07. Glucose 121. Objective - Vital Signs Vital signs: Vital Signs Temp 97.9 F 11/17/23 08:00 Pulse 115 H 11/17/23 12:03 Resp 16 11/17/23 03:31 BP 89/57 11/17/23 08:00 Pulse Ox 99 11/17/23 08:36 FiO2 35 11/12/23 08:54 Intake & Output 11/16/23 11/17/23 11/17/23 18:59 06:59 18:59 Intake Total 0 278 Output Total 2300 740 560 Balance -2300 -462 -560 Weight 91.5 kg 89 kg Intake: Blood Product 0 278 Rc Pheresis 2 As3 Unit 0 278 [id number] Output: Drainage 40 10 Abdomen 40 10 Urine 2300 700 550 Other: Voiding Method Indwelling Catheter Indwelling Catheter Indwelling Catheter ABP, PAP, CO, CI - Last Documented Arterial Blood Pressure 121/71 - Exam GENERAL EXAM: Revealed a 63-year-old male, chronically ill, confused, encephalopathic, on 2 L nasal cannula HEAD: Normocephalic and atraumatic EYES: Normal reaction of pupils, equal size. NOSE: Clear with pink turbinates. THROAT: No erythema or exudates. NECK: No masses, no JVD. Right IJ central line catheter in place. CHEST: No chest wall deformity. LUNGS: Symmetrical chest expansion, fine crackles at the bases no rhonchi no wheezes CVS: Distant S1-S2, no S3 gallop, irregular rhythm. ABDOMEN: Midline abdominal incision with wound VAC, SANDY drain compressed and draining purulent material abdomen is soft, bowel sounds hypoactive, no appr eciated organomegaly. SKIN: Bilateral lower extremities wrapped in postoperative dressing/Abhijeet Kerlix wrap, both lower extremities were unwrapped, and able to visualize the significant cellulitis in both lower extremities, obviously the right lower extremity cellulitis needs to have further debridement and vascular surgery was reconsulted CENTRAL NERVOUS SYSTEM: Patient seems to be confused, encephalopathic, does not follow simple instructions. EXTREMITIES: As noted above significant cellulitis of both lower extremities, with skin changes suggestive of ischemic changes in the right lower extremity throughout. - Labs CBC & Chem 7: 11/17/23 06:24 11/17/23 06:24 Labs: Abnormal Lab Results - Last 24 Hours (Table) 11/16/23 11/16/23 11/17/23 Range/Units 12:11 23:55 05:53 WBC (3.8-10.6) k/uL RBC (4.30-5.90) m/uL Hgb (13.0-17.5) gm/dL Hct (39.0-53.0) % MCHC (31.0-37.0) g/dL RDW (11.5-15.5) % Plt Count (150-450) k/uL Neutrophils # (1.3-7.7) k/uL Lymphocytes # (1.0-4.8) k/uL Potassium (3.5-5.1) mmol/L Carbon Dioxide (22-30) mmol/L BUN (9-20) mg/dL Creatinine (0.66-1.25) mg/dL Glucose (74-99) mg/dL POC Glucose (mg/dL) 127 H 133 H (70-110) mg/dL Crossmatch See Detail 11/17/23 11/17/23 11/17/23 Range/Units 06:24 06:24 11:24 WBC 12.1 H (3.8-10.6) k/uL RBC 2.74 L (4.30-5.90) m/uL Hgb 7.1 L (13.0-17.5) gm/dL Hct 24.2 L (39.0-53.0) % MCHC 29.3 L (31.0-37.0) g/dL RDW 21.8 H (11.5-15.5) % Plt Count 458 H (150-450) k/uL Neutrophils # 10.4 H (1.3-7.7) k/uL Lymphocytes # 0.8 L (1.0-4.8) k/uL Potassium 3.2 L (3.5-5.1) mmol/L Carbon Dioxide 35 H (22-30) mmol/L BUN 55 H (9-20) mg/dL Creatinine 2.07 H (0.66-1.25) mg/dL Glucose 121 H (74-99) mg/dL POC Glucose (mg/dL) 140 H (70-110) mg/dL Crossmatch Microbiology - Last 24 Hours (Table) 11/12/23 12:10 Anaerobic Culture - Final Other - Other 11/12/23 12:10 Gram Stain - Final Other - Other Wound Culture - Final Enterococcus faecium VRE Doreen albicans Assessment and Plan Assessment: Acute hypoxic respiratory failure secondary to sepsis and septic shock related to severe cellulitis of both lower extremities and abdominal sepsis with p erforated gastric ulcer and pneumoperitoneum requiring surgery as noted below. Perforated gastric ulcer and pneumoperitoneum, status post exploratory laparotomy with gastric ulcer repair with modified Jasvir patch on 11/05/2023, the patient is postop day #12 Bilateral hospital-acquired pneumonia patient is on multiple antibiotics Septic shock with hypotension and shock, recovered and off pressors Sepsis and septic shock Severe nonanion gap metabolic acidosis, significantly improved. Encephalopathy/delirium, acute metabolic encephalopathy Bilateral lower extremity wounds/cellulitis, status-post debridement on 11/03/2023. Wounds positive for polymicrobial organisms including Pseudomonas aeruginosa, MRSA, Enterococcus faecalis. Antibiotics being directed by infectious disease specialist Peripheral vascular disease, with recent history of femoral popliteal artery bypass on 06/06/2023, subsequently, developing wound infection and dehiscence, undergoing multiple excisional debridements since then. Atrial fibrillation with controlled ventricular response Normocytic, normochromic anemia Acute leukocytosis Acute kidney injury secondary to hypotension and ATN, nonoliguric and the patient has a positive urine output. The patient remains nonoliguric, the creatinine remained stable for now. History of hypertension History of hyperlipidemia History of coronary artery disease with previous stent placement History of AAA with previous endovascular repair History of alcoholism Chronic ongoing tobacco dependence Poor overall functional performance based on the above-mentioned multiple multiple comorbidities Plan: The patient was seen and evaluated Labs and medications reviewed Continue the current treatment plan On 2 L nasal cannula Overall prognosis is poor DNR CODE STATUS Remains encephalopathic, safety engineer pressure vessels at the bedside I have personally seen and examined the patient, performed the documentation and the assessment and plan as written. Number of minutes spent on the visit: 10.
--- NOTE | 2023-11-17 12:49 | P.PN ---
Subjective Progress Note Date: 11/17/23 H&P Date: 10/30/23 Chief Complaint: Worsening bilateral lower legs, increased pain, edema and "split open" This is 63-year-old gentleman with past medical history significant for PAD, multiple vascular procedures including femoral-tibial bypass followed by wound development, dehiscence of his left lower extremity, status post recent excisional debridement of the left lower leg wound with skin substitute placement, excisional debridement of the left great toe wound and excisional debridement of right lower leg wound x 2 on 10/03/[address] Inman, vascular surgery, presented to the ER with worsening bilateral lower extremity pain, edema, reports right lower extremity "split open" over the last week with serous drainage. His visiting nurse evaluated patient on Monday recommending ER. Denies any chest pain, palpitations or shortness of breath. Denies nausea vomiting or diarrhea. Denies abdominal pain. Denies fever or chills. Denies lightheadedness, dizziness or focal deficits. Wound and blood cultures obtained, initiated on vancomycin in the ER. Tmax 101, WBC 16.3, increased to 19.67, CRP 12.6 .hemoglobin 7.7, platelets 468. Sodium 129, potassium 3.3, bicarb 19, BUN 10, creatinine 0.7. Lactic acid 2.2, improved with IV fluid hy dration, 1.1. Magnesium 1-repeat level ordered stat. 10/31/2023 Tmax 101. WBC decreased to 15.1. reports decreased appetite. Sodium decreased to 127, renal function stable. Potassium 3.9, magnesium 1.2 - supplements ordered. Positive pain of bilateral lower extremities. Evaluated by infectious disease, antibiotics adjusted to Zyvox and meropenem. Denies chest pain, palpitations or shortness of breath. 11/01/2023 wound cultures growing Pseudomonas and Enterococcus faecalis, vancomycin and penicillin sensitive, afebrile, WBC up to 20.06, antibiotics further adjusted to Zosyn and daptomycin. Renal function stable. IV fluids adjusted yesterday to D5.9 with sodium improved up to 130. 11/02/2023 maintained on IV antibiotics as per ID. Afebrile, WBC decreased to 17.3. Hemoglobin 9.1, platelets 523. Sodium 131 on IV fluids of D5.9. Potassium 3.8, magnesium 1.8, creatinine 0.9. Pain controlled , denies chest pain, palpitations or shortness of breath, maintaining O2 sats in the high 90s on room air. Scheduled for debridement and deep cultures tomorrow with vascular surgery. 11/07/2023 remains vent dependent with FiO2 35%/5 of PEEP. Maintained on diprovan, Levophed and bicarb drips. Bicarb 20, BUN 53, creatinine 2.84. continues on daptomycin, Eraxis, Zosyn. WBC 21, afebrile. Receiving potassium supplementation for potassium 3.3. Hemoglobin 7.1, platelets 477. 11/08/2023 Vent dependent, FiO2 35%/+5 of PEEP. Unsuccessful weaning trial yesterday, not following commands. Scheduled for another weaning trial today. Bicarb 23, bicarb drip discontinued. Levophed resumed after being off for few hours during the night. Echo reported EF 55 to 60%. Telemetry atrial f ibrillation with controlled ventricular rates, cardiology following. Staff reported earlier this morning right foot noted to be cooler, mottled, improved with rewrapping of Abhijeet wrap's -less tight. TPN ordered. 11/09/2023 weaning trials attempted yesterday, patient was not following commands , not opening eyes ,shaking his head [id number]. Vent dependent, FiO2 35%/+5 of PEEP. Repeat weaning trial scheduled for today. continues on Levophed. Telemetry atrial fibrillation with controlled ventricular rate. continues to have large output from SANDY drain. Afebrile, WBC increased to 15.4. Hemoglobin 7.2, platelet count 317. Bicarb 21, BUN 54, creatinine 3.27. Sputum culture reporting stenotrophomonas maltophilia, Doreen albicans. Maintained on Zosyn, Eraxis and vancomycin. 11/10/2023 Vent dependent FiO2 35%/+5 of PEEP. Maintained on Levophed. Telemetry atrial fibrillation, controlled ventricular rate. Failed weaning trial yesterday, reattempting today. Bicarb 21, BUN 54, creatinine 3.21. Afebrile, WBC increased to 18. Continues on daptomycin, Zosyn, Levaquin, Eraxis. 11/13/2023 extubated yesterday, maintaining O2 sats in the 90s on 2 L nasal cannula. Pressures soft ,maintained on Levophed. Tolerating TPN with minimal to no residual. Confused, pulling at lines. Sputum culture reported stenotrophomonas. continues on Eraxis, daptomycin, Levaquin and Zosyn. Afebrile, WBC 15.1. Hemoglobin 7.1, platelets 419. BUN 54, creatinine 3.14. 11/14/2023 maintained on 2 L nasal cannula maintaining O2 sats in the high 90s to 100% .hemoglobin 7 ,renal function continues to improve, creatinine 2.7 .remains pressor dependent. Afebrile, WBC remains at 15.1. continues on Eraxis, daptomycin, Levaquin and Zosyn. Continues on TPN.Confused. Right lower extremity reevaluated by vascular surgery with no surgical debridement recommended at this time; recommending eventual right lower extremity SFA revascularization when more stable. 11/15/2023 continues on Levophed. Diuresing with Lasix IV push as per nephrology. Renal function continues to improve, creatinine down to 2.36. maintaining O2 sats in the 90s on 2 L nasal cannula. Chest x-ray reporting stable .NPO, on TPN. Maintained on Eraxis, Zosyn, daptomycin and Levaquin as per infectious disease. 11/16/2023 Levophed weaned off yesterday.transferred out of ICU currently on stepdown unit. Remains confused, attempting to pull out lines, NG tube. Maintained on TPN/lipids. Continues on Eraxis, daptomycin, Zosyn and Levaquin. Diuresing well on Lasix IV push with 24-hour WOLF reflecting a negative fluid balance. Hemoglobin 6.7, platelets 397, creatinine decreased to 2.22 ,phosphorus 2. Complains of abdominal pain. 11/17/2023 maintained on IV push Lasix, fluid restrictions and low-salt diet ,renal function remains stable, bicarb 35, BUN 55, creatinine 2.07. Yesterday he received 1 unit of packed RBCs for hemoglobin of 6.7, hemoglobin currently 7.1 .maintained on TPN, glucose 121, sodium 144, potassium 3.2. continues on Eraxis, daptomycin, Levaquin and Zosyn .afebrile WBC 12.1.Confused with sitter at bedside. Reports abdominal pain. Objective - Vital Signs Vital signs: Vital Signs Temp 97.9 F 11/17/23 08:00 Pulse 111 H 11/17/23 08:49 Resp 16 11/17/23 03:31 BP 89/57 11/17/23 08:00 Pulse Ox 99 11/17/23 08:36 FiO2 35 11/12/23 08:54 Intake & Output 11/16/23 11/17/23 11/17/23 18:59 06:59 18:59 Intake Total 0 278 Output Total 2300 740 560 Balance -2300 -462 -560 Weight 91.5 kg 89 kg Intake: Blood Product 0 278 Rc Pheresis 2 As3 Unit 0 278 [id number] Output: Drainage 40 10 Abdomen 40 10 Urine 2300 700 550 Other: Voiding Method Indwelling Catheter Indwelling Catheter Indwelling Catheter ABP, PAP, CO, CI - Last Documented Arterial Blood Pressure 121/71 - Exam PHYSICAL EXAM: VITAL SIGNS: [As above] GENERAL: Alert to person, confused, encephalopathic, soft wrist restraints. HEENT: Normocephalic, atraumatic ,conjunctivae normal. NG tube. NECK: Supple, no JVD. CARDIOVASCULAR: S1, S2 regular. Irregular, no murmur. RESPIRATION: Unlabored, equal air entry, fine bibasilar crackles ABDOMEN: status post surgery, wound VAC, SANDY drain with purulent bilious drainage, hypoactive bowel sounds LEGS: Bilateral lower extremities' dressings clean dry and intact, edema improved. NERVOUS SYSTEM: Limited, confused,safety deposit boxes custodian at bedside Skin: Warm and dry, no rash - Labs CBC & Chem 7: 11/17/23 06:24 11/17/23 06:24 Labs: Abnormal Lab Results - Last 24 Hours (Table) 11/16/23 11/16/23 11/17/23 Range/Units 12:11 23:55 05:53 WBC (3.8-10.6) k/uL RBC (4.30-5.90) m/uL Hgb (13.0-17.5) gm/dL Hct (39.0-53.0) % MCHC (31.0-37.0) g/dL RDW (11.5-15.5) % Plt Count (150-450) k/uL Neutrophils # (1.3-7.7) k/uL Lymphocytes # (1.0-4.8) k/uL Potassium (3.5-5.1) mmol/L Carbon Dioxide (22-30) mmol/L BUN (9-20) mg/dL Creatinine (0.66-1.25) mg/dL Glucose (74-99) mg/dL POC Glucose (mg/dL) 127 H 133 H (70-110) mg/dL Crossmatch See Detail 11/17/23 11/17/23 11/17/23 Range/Units 06:24 06:24 11:24 WBC 12.1 H (3.8-10.6) k/uL RBC 2.74 L (4.30-5.90) m/uL Hgb 7.1 L (13.0-17.5) gm/dL Hct 24.2 L (39.0-53.0) % MCHC 29.3 L (31.0-37.0) g/dL RDW 21.8 H (11.5-15.5) % Plt Count 458 H (150-450) k/uL Neutrophils # 10.4 H (1.3-7.7) k/uL Lymphocytes # 0.8 L (1.0-4.8) k/uL Potassium 3.2 L (3.5-5.1) mmol/L Carbon Dioxide 35 H (22-30) mmol/L BUN 55 H (9-20) mg/dL Creatinine 2.07 H (0.66-1.25) mg/dL Glucose 121 H (74-99) mg/dL POC Glucose (mg/dL) 140 H (70-110) mg/dL Crossmatch Microbiology - Last 24 Hours (Table) 11/12/23 12:10 Anaerobic Culture - Final Other - Other 11/12/23 12:10 Gram Stain - Final Other - Other Wound Culture - Final Enterococcus faecium VRE Doreen albicans Assessment and Plan Assessment: Sepsis secondary to infected bilateral lower extremity wounds, cellulitis, recent excisional debridement of left lower leg wound with skin substitute placement, excisional debridement of the left great toe wound and excisional debridement of the right lower leg wound x 2 on 10/03/[address] Inman , vascular surgery. Cultures currently reported Pseudomonas aeruginosa and Enterococcus faecalis and MRSA. Status post debridement with deep cultures 11/02 reporting Pseudomonas Morganelli, Enterococcus faecalis and MRSA. Perforated peptic ulcer and pneumoperitoneum status post exploratory laparotomy with gastric ulcer repair, modified Jasvir patch on 11/05/2023. Acute hypoxic respiratory failure, mechanical ventilator dependent Hospital-acquired, bilateral pneumonia ;sputum culture reporting stenotrophomon as maltophilia, Doreen albicans Septic shock, status post vasopressors Acute metabolic encephalopathy secondary to all the above Acute kidney injury, ATN secondary to sepsis, hypotension, stable. Metabolic acidosis secondary to the above, status post bicarb drip, improved History of Pseudomonas and VRE on last wound culture of left leg 10/03/2023, Lactic acidosis secondary to the above, resolved History of left femoral tibial bypass secondary to critical limb ischemia History of aortic aneurysm with endovascular repair; Chronic Paroximal atrial fibrillation CAD, history of stent placement Essential hypertension Hyperlipidemia Nicotine dependence Daily alcohol use Noncompliance with medication regimen, patient is high risk for readmission. Iron deficient anemia Hypokalemia Hypomagnesemia Hyponatremia No code Plan: Continue current medication regimen, monitoring and symptomatic treatment. Pain management. Antibiotics/antifungal as per ID . Prognosis guarded given multiple complex medical issues. The impression and plan of care has been dictated as directed. : I performed a history and examination of this patient, discussed the same with the dictator. I agree with the dictator's note ,documented as a scribe. Any additional findings or plans will be noted.
[2023-11-17] MEDS: ACETAMINOPHEN IV (For NPO) 1,000 MG in EMPTY BAG 1 BAG IVPB PRN (13:30)
[2023-11-17] MEDS: POTASSIUM CHLORIDE 20 MEQ in WATER FOR INJECTION 1 100ML.BAG IVPB SCH (13:30)
--- NOTE | 2023-11-17 15:32 | P.PN ---
Subjective Progress Note Date: 11/17/23 Principal diagnosis: Reason for follow-up is bilateral lower extremity infected wounds and perforated peptic ulcer Patient is a 63-year-old male with a past medical history significant for hypertension hyperlipidemia coronary artery disease, PAD multiple vascular procedures including left femoral-tibial bypass and now has been dealing with the wound to the left lower extremity as well as wound to the right leg being managed in the outpatient setting by vascular surgery Center the hospital by the home care nurse concerning for worsening infection. Patient last wound culture positive for VRE and Pseudomonas. Patient is status post Sharp excisional debridement bilateral lower extremities along with cultures of the purulent material completed on 11/03/2023.Patient was taken to the OR 11/05/2023 found to have perforated gastric ulcer status post exploratory laparotomy repair of the perforated ulcer with modified Jasvir patch. On today's evaluation that is 11/17/2023,the patient remains to be afebrile, patient is on 2 L nasal cannula supplemental oxygen and does not seem to be any distress still did not answer any question no vomiting or diarrhea has been rep orted by the nursing staff. Patient white count is 12.1, creatinine is 2.07 Objective - Vital Signs Vital signs: Vital Signs Temp 97.9 F 11/17/23 08:00 Pulse 115 H 11/17/23 12:03 Resp 16 11/17/23 03:31 BP 89/57 11/17/23 08:00 Pulse Ox 99 11/17/23 08:36 FiO2 35 11/12/23 08:54 Intake & Output 11/16/23 11/17/23 11/17/23 18:59 06:59 18:59 Intake Total 0 278 Output Total 2300 740 560 Balance -2300 -462 -560 Weight 91.5 kg 89 kg Intake: Blood Product 0 278 Rc Pheresis 2 As3 Unit 0 278 [id number] Output: Drainage 40 10 Abdomen 40 10 Urine 2300 700 550 Other: Voiding Method Indwelling Catheter Indwelling Catheter Indwelling Catheter ABP, PAP, CO, CI - Last Documented Arterial Blood Pressure 121/71 - Exam GENERAL DESCRIPTION: Middle-age male lying in bed in no distress RESPIRATORY SYSTEM: Unlabored breathing , decreased breath sounds at bases HEART: S1 S2 regular rate and rhythm , ABDOMEN: Soft , mild distention EXTREMITIES: Right lower extremity with necrotic woundAnd some slough tissue - Labs CBC & Chem 7: 11/17/23 06:24 11/17/23 06:24 Labs: Abnormal Lab Results - Last 24 Hours (Table) 11/16/23 11/16/23 11/17/23 Range/Units 12:11 23:55 05:53 WBC (3.8-10.6) k/uL RBC (4.30-5.90) m/uL Hgb (13.0-17.5) gm/dL Hct (39.0-53.0) % MCHC (31.0-37.0) g/dL RDW (11.5-15.5) % Plt Count (150-450) k/uL Neutrophils # (1.3-7.7) k/uL Lymphocytes # (1.0-4.8) k/uL Potassium (3.5-5.1) mmol/L Carbon Dioxide (22-30) mmol/L BUN (9-20) mg/dL Creatinine (0.66-1.25) mg/dL Glucose (74-99) mg/dL POC Glucose (mg/dL) 127 H 133 H (70-110) mg/dL Crossmatch See Detail 11/17/23 11/17/23 11/17/23 Range/Units 06:24 06:24 11:24 WBC 12.1 H (3.8-10.6) k/uL RBC 2.74 L (4.30-5.90) m/uL Hgb 7.1 L (13.0-17.5) gm/dL Hct 24.2 L (39.0-53.0) % MCHC 29.3 L (31.0-37.0) g/dL RDW 21.8 H (11.5-15.5) % Plt Count 458 H (150-450) k/uL Neutrophils # 10.4 H (1.3-7.7) k/uL Lymphocytes # 0.8 L (1.0-4.8) k/uL Potassium 3.2 L (3.5-5.1) mmol/L Carbon Dioxide 35 H (22-30) mmol/L BUN 55 H (9-20) mg/dL Creatinine 2.07 H (0.66-1.25) mg/dL Glucose 121 H (74-99) mg/dL POC Glucose (mg/dL) 140 H (70-110) mg/dL Crossmatch Microbiology - Last 24 Hours (Table) 11/12/23 12:10 Anaerobic Culture - Final Other - Other 11/12/23 12:10 Gram Stain - Final Other - Other Wound Culture - Final Enterococcus faecium VRE Doreen albicans Assessment and Plan (1) Bilateral lower leg cellulitis Current Visit: Yes Status: Acute Code(s): L03.116 - CELLULITIS OF LEFT LOWER LIMB; L03.115 - CELLULITIS OF RIGHT LOWER LIMB SNOMED Code(s): 073922298 (2) Open wound of both lower extremities Current Visit: Yes Status: Acute Code(s): S81.801A - UNSPECIFIED OPEN WOUND, RIGHT LOWER LEG, INITIAL ENCOUNTER; S81.802A - UNSPECIFIED OPEN WOUND, LEFT LOWER LEG, INITIAL ENCOUNTER SNOMED Code(s): 45529701 (3) Sepsis Current Visit: Yes Status: Acute Code(s): A41.9 - SEPSIS, UNSPECIFIED ORGANISM SNOMED Code(s): 13168686 (4) Pneumonia Current Visit: Yes Status: Acute Code(s): J18.9 - PNEUMONIA, UNSPECIFIED ORGANISM SNOMED Code(s): 750230511 Plan: 1patient presented to hospital with sepsis in this patient who did have a fever tachycardia elevated white count source is likely bilateral lower extremity wound and cellulitis with more extensive wound to the left lower extremity in this patient who did have a history of PAD and has multiple vascular procedure last wound culture done from the right leg has been Pseudomonas and VRE that was done on 10/03/2023, culture done this admission are growing Pseudomonas aeruginosa Enterococcus faecalis that is not VRE and MRSA 2patient is status post debridement and deep culture completed on 11/03/2023 which did grow multiple pathogen including Pseudomonas Morganella Enterococcus faecalis and MRSA 3patient did have a perforated peptic ulcer status post laparotomy and modified Jasvir patch 4-patient sputum is growing stenotrophomonas concerning for gram-negative pneumonia 5-patient has been reevaluated by vascular surgery regarding ischemic right leg planning for possible revascularization once stable, 6patient is afebrile and the patient white count is trending down 7-patient to continue daptomycin, Zosyn Levaquin and Eraxis keeping in mind multiple sites of infection and multiple pathogen that has been growing from the culture. Sister at the bedside question concern answered Dictation was produced using [employer] dictation software. please excuse any grammatical, word or spelling errors. Time with Patient: Less than 30
[2023-11-17 17:08] LABS: Glucose,Whole Blood 159 mg/dL (70-110)
[2023-11-17 23:59] LABS: Glucose,Whole Blood 147 mg/dL (70-110)
[2023-11-18 06:20] LABS: Glucose,Whole Blood 136 mg/dL (70-110)
[2023-11-18 08:13] LABS: African American GFR (CKD) 43 (>60 ml/min/1.73 sqM); Anion Gap 4 mmol/L; Blood Urea Nitrogen 53 mg/dL (9-20); Calcium 8.7 mg/dL (8.4-10.2); Carbon Dioxide 33 mmol/L (22-30); Chloride 107 mmol/L (98-107); Glucose 114 mg/dL (74-99); Magnesium 2.1 mg/dL (1.6-2.3); Non-African American GFR(CKD) 37 (>60 ml/min/1.73 sqM); Phosphorus 2.7 mg/dL (2.5-4.5); Potassium 3.8 mmol/L (3.5-5.1); Sodium 144 mmol/L (137-145)
--- NOTE | 2023-11-18 09:01 | P.PN ---
Subjective Progress Note Date: 11/18/23 Patient main stable. He has minimal complaints of pain. His SANDY drainage has decreased significantly. And there is significantly less bile tinged to the SANDY fluid. The patient did have some fevers yesterday. On exam vital signs appear stable. Abdomen is soft. Status post repair of perforated gastric ulcer. Patient did have a leak of his ulcer repair postop day 7. This appears to have improved. The patient will most likely need his central venous catheter change. This may be the source of his fever. Objective - Vital Signs Vital signs: Vital Signs Temp 100.2 F H 11/18/23 03:01 Pulse 118 H 11/18/23 08:46 Resp 16 11/18/23 03:01 BP 108/78 11/18/23 03:01 Pulse Ox 100 11/18/23 03:01 FiO2 35 11/12/23 08:54 Intake & Output 11/17/23 11/18/23 11/18/23 18:59 06:59 18:59 Intake Total 1054.5 Output Total 1470 1160 Balance -415.5 -1160 Weight 90.5 kg Intake: Intake, IV Titration 1054.5 Amount Sodium Acetate 36 meq 1054.5 Potassium Acetate 32 meq Calcium Gluconate 1.5 gm Magnesium Sulfate gm 1.25 gm Potassium Phosphate 9 mmol In Amino Acids 5 %/ Dextrose 20 % 1,000 ml @ 95 mls/hr IV .BY DURATION [facility] Rx#:[id number] Output: Gastric Drainage 300 Drainage 20 10 Abdomen 20 10 Urine 1450 850 Other: Voiding Method Indwelling Catheter Indwelling Catheter ABP, PAP, CO, CI - Last Documented Arterial Blood Pressure 121/71 - Labs CBC & Chem 7: 11/17/23 06:24 11/18/23 07:27 Labs: Abnormal Lab Results - Last 24 Hours (Table) 11/17/23 11/17/23 11/17/23 Range/Units 11:24 17:06 23:57 Carbon Dioxide (22-30) mmol/L BUN (9-20) mg/dL Creatinine (0.66-1.25) mg/dL Glucose (74-99) mg/dL POC Glucose (mg/dL) 140 H 159 H 147 H (70-110) mg/dL 11/18/23 11/18/23 Range/Units 06:18 07:27 Carbon Dioxide 33 H (22-30) mmol/L BUN 53 H (9-20) mg/dL Creatinine 1.87 H (0.66-1.25) mg/dL Glucose 114 H (74-99) mg/dL POC Glucose (mg/dL) 136 H (70-110) mg/dL
[2023-11-18] MEDS: FUROSEMIDE 10 MG/ML 4 ML VIAL IV SCH (09:27)
--- NOTE | 2023-11-18 10:24 | P.PN ---
Subjective Patient is seen in follow-up for acute kidney injury. Renal function improving. Nonoliguric. On IV Lasix. Receiving TPN. Poor historian. Sitter present at bedside. Vital signs are stable. General: No acute distress. HEENT: NG tube noted. On nasal cannula. LUNGS: No audible rhonchi or wheezes. HEART: Rate and Rhythm are regular. ABDOMEN: No distention. EXTREMITITES: Lower extremities wrapped. No drainage. 1+ edema. Objective - Vital Signs Vital signs: Vital Signs Temp 100.2 F H 11/18/23 03:01 Pulse 118 H 11/18/23 08:46 Resp 16 11/18/23 03:01 BP 108/78 11/18/23 03:01 Pulse Ox 100 11/18/23 03:01 FiO2 35 11/12/23 08:54 Intake & Output 11/17/23 11/18/23 11/18/23 18:59 06:59 18:59 Intake Total 1054.5 1065.5 Output Total 1470 1160 Balance -415.5 -94.5 Weight 90.5 kg Intake: Intake, IV Titration 1054.5 1065.5 Amount Mvi, Adult No.4 with Vit 1065.5 K 10 ml Trace (Conc-1Ml/ Dose) 1 ml Sodium Acetate 36 meq Potassium Acetate 32 meq Calcium Gluconate 1.5 gm Magnesium Sulfate gm 1.25 gm Potassium Phosphate 9 mmol In Amino Acids 5 %/Dextrose 20 % 1,000 ml @ 95 mls/hr IV . BY DURATION [facility] Rx#: [id number] Sodium Acetate 36 meq 1054.5 Potassium Acetate 32 meq Calcium Gluconate 1.5 gm Magnesium Sulfate gm 1.25 gm Potassium Phosphate 9 mmol In Amino Acids 5 %/ Dextrose 20 % 1,000 ml @ 95 mls/hr IV .BY DURATION [facility] Rx#:[id number] Output: Gastric Drainage 300 Drainage 20 10 Abdomen 20 10 Urine 1450 850 Other: Voiding Method Indwelling Catheter Indwelling Catheter ABP, PAP, CO, CI - Last Documented Arterial Blood Pressure 121/71 - Labs CBC & Chem 7: 11/17/23 06:24 11/18/23 07:27 Labs: Abnormal Lab Results - Last 24 Hours (Table) 11/17/23 11/17/23 11/17/23 Range/Units 11:24 17:06 23:57 Carbon Dioxide (22-30) mmol/L BUN (9-20) mg/dL Creatinine (0.66-1.25) mg/dL Glucose (74-99) mg/dL POC Glucose (mg/dL) 140 H 159 H 147 H (70-110) mg/dL 11/18/23 11/18/23 Range/Units 06:18 07:27 Carbon Dioxide 33 H (22-30) mmol/L BUN 53 H (9-20) mg/dL Creatinine 1.87 H (0.66-1.25) mg/dL Glucose 114 H (74-99) mg/dL POC Glucose (mg/dL) 136 H (70-110) mg/dL Assessment and Plan Plan: Assessment: 1. Acute kidney injury secondary to ATN secondary to septic shock. No hydronephrosis noted on CAT scan. Baseline creatinine near 1 and peaked at 3.32 this admission - 1.87 today. Nonoliguric. 2. Septic shock secondary to perforated viscus and lower extremity wounds. 3. Metabolic acidosis secondary to acute kidney injury. Resolved. 4. Volume overload. Improved with diuresis. 5. Hyperphosphatemia secondary to acute kidney injury. Resolved. Subsequently phosphorus was low and had to be replaced. Now normal. 6. Anemia. Avoid IV iron in the setting of acute infection. On Aranesp. Status post blood transfusion this admission. Also received IV DDAVP. 7. Hypokalemia from diuresis. Replaced. Better. Plan: TPN per surgery. Maintain Lasix. Transition to oral diuretics once able to take oral meds. Continue to monitor renal function and urine output.
[2023-11-18 11:13] VITALS: RESP 18
[2023-11-18 11:47] LABS: Glucose,Whole Blood 136 mg/dL (70-110)
--- NOTE | 2023-11-18 12:23 | P.PN ---
Subjective Progress Note Date: 11/18/23 This is a 63-year-old male patient who is treated for sepsis and septic shock secondary to severe lower bilateral lower extremity cellulitis as well as a perforated gastric ulcer with pneumoperitoneum requiring intubation mechanical ventilation and status post laparotomy and gastric ulcer repair with modified Jasvir patch on 11/05/2023. Postoperative day #10. Transferred out of the intensive care unit yesterday. He is currently resting in bed. Awake and alert. He does not make good eye contact. Not answering any yes or no questions. Maintaining O2 saturations in the 90s on 2 L/min per nasal cannula. Has been afebrile. Hemodynamically stable. X-ray shows persistent perihilar opacities and likely small bilateral pleural effusions. Nasogastric tube remains in place. Receiving 1 unit of blood for a hemoglobin today of 6.7. Platelets 397. 12.8. Sodium 141. Potassium 4.0. Bicarb 27. BUN 59. Creatinine 2.22. Glucose 120. He remains on Eraxis, daptomycin, Levaquin and Zosyn. Receiving TPN for nutritional support at 95 mL/h. The patient is seen today November 17, 2023 in follow-up on the selective care unit. He is currently resting in bed. He is maintaining good O2 saturations in the 90s on room air. Afebrile. Hemodynamically stable. He is being nourished with TPN at 95 mL/h. Nasogastric tube remains in place. Triple-lumen catheter remains in place. He is continued on Eraxis, daptomycin, Levaquin, Zosyn. He remains on bronchodilators. Santyl to lower extremity wounds. He is postoperative day #12 of a repair of a perforated gastric ulcer. SANDY drain remains in place. Wound VAC remains in place. The patient remains confused. roofing sales representative at the bedside. White count 12.1. Hemoglobin 7.1. Platelets 458. Sodium 144. Potassium 3.2. Bicarb 35. BUN 55. Creatinine 2.07. Glucose 121. The patient is seen today November 18, 2023 in follow-up on the selective care unit. He is resting in bed. Confused at times. roofing sales representative remains at the bedside. He is currently maintaining O2 saturations in the 90s on 2 L/min per nasal cannula. Sodium 144. Potassium 3.8. Bicarb 33. BUN 53. Creatinine 1.87. Glucose 114. He is continued on Eraxis, daptomycin, Levaquin and Zosyn. Remains on bronchodilators. Postoperative day #13 of a repair of the perforated gastric ulcer. SANDY drain remains in place. Wound VAC remains in place. Continued on IV diuretics. Currently in a negative balance. Objective - Vital Signs Vital signs: Vital Signs Temp 99.1 F 11/18/23 08:00 Pulse 118 H 11/18/23 11:48 Resp 18 11/18/23 08:00 BP 121/79 11/18/23 08:00 Pulse Ox 100 11/18/23 08:00 FiO2 35 11/12/23 08:54 Intake & Output 11/17/23 11/18/23 11/18/23 18:59 06:59 18:59 Intake Total 1054.5 1065.5 Output Total 1470 1160 265 Balance -415.5 -94.5 -265 Weight 90.5 kg Intake: Intake, IV Titration 1054.5 1065.5 Amount Mvi, Adult No.4 with Vit 1065.5 K 10 ml Trace (Conc-1Ml/ Dose) 1 ml Sodium Acetate 36 meq Potassium Acetate 32 meq Calcium Gluconate 1.5 gm Magnesium Sulfate gm 1.25 gm Potassium Phosphate 9 mmol In Amino Acids 5 %/Dextrose 20 % 1,000 ml @ 95 mls/hr IV . BY [facility] Rx#: [id number] Sodium Acetate 36 meq 1054.5 Potassium Acetate 32 meq Calcium Gluconate 1.5 gm Magnesium Sulfate gm 1.25 gm Potassium Phosphate 9 mmol In Amino Acids 5 %/ Dextrose 20 % 1,000 ml @ 95 mls/hr IV .[facility] Rx#:[id number] Output: Gastric Drainage 300 250 Drainage 20 10 15 Abdomen 20 10 15 Urine 1450 850 Other: Voiding Method Indwelling Catheter Indwelling Catheter Indwelling Catheter ABP, PAP, CO, CI - Last Documented Arterial Blood Pressure 121/71 - Exam GENERAL EXAM: Revealed a 63-year-old male resting in bed, chronically ill, confused, on 2 L nasal cannula HEAD: Normocephalic and atraumatic EYES: Normal reaction of pupils, equal size. NOSE: Clear with pink turbinates. THROAT: No erythema or exudates. NECK: No masses, no JVD. Right IJ central line catheter in place. CHEST: No chest wall deformity. LUNGS: Symmetrical chest expansion, fine crackles at the bases no rhonchi no wheezes CVS: Distant S1-S2, no S3 gallop, irregular rhythm. ABDOMEN: Midline abdominal incision with wound VAC, SANDY drain compressed and draining purulent material abdomen is soft, bowel sounds hypoactive, no apprecia ivon organomegaly. SKIN: Bilateral lower extremities wrapped in postoperative dressing/Abhijeet Kerlix w rap, both lower extremities were unwrapped, and able to visualize the significant cellulitis in both lower extremities, obviously the right lower extremity cellulitis needs to have further debridement and vascular surgery was reconsulted CENTRAL NERVOUS SYSTEM: Patient seems to be confused, encephalopathic, does not follow simple instructions. EXTREMITIES: As noted above significant cellulitis of both lower extremities, with skin changes suggestive of ischemic changes in the right lower extremity throughout. - Labs CBC & Chem 7: 11/17/23 06:24 11/18/23 07:27 Labs: Abnormal Lab Results - Last 24 Hours (Table) 11/17/23 11/17/23 11/18/23 Range/Units 17:06 23:57 06:18 Carbon Dioxide (22-30) mmol/L BUN (9-20) mg/dL Creatinine (0.66-1.25) mg/dL Glucose (74-99) mg/dL POC Glucose (mg/dL) 159 H 147 H 136 H (70-110) mg/dL 11/18/23 11/18/23 Range/Units 07:27 11:45 Carbon Dioxide 33 H (22-30) mmol/L BUN 53 H (9-20) mg/dL Creatinine 1.87 H (0.66-1.25) mg/dL Glucose 114 H (74-99) mg/dL POC Glucose (mg/dL) 136 H (70-110) mg/dL Assessment and Plan Assessment: Acute hypoxic respiratory failure secondary to sepsis and septic shock related to severe cellulitis of both lower extremities and abdominal sepsis with perforated gastric ulcer and pneumoperitoneum requiring surgery as noted below. Perforated gastric ulcer and pneumoperitoneum, status post exploratory laparotomy with gastric ulcer repair with modified Jasvir patch on 11/05/2023, the patient is postop day #13 Bilateral hospital-acquired pneumonia patient is on multiple antibiotics Septic shock with hypotension and shock, recovered and off pressors Sepsis and septic shock Severe nonanion gap metabolic acidosis, significantly improved. Encephalopathy/delirium, acute metabolic encephalopathy Bilateral lower extremity wounds/cellulitis, status-post debridement on 11/03/2023. Wounds positive for polymicrobial organisms including Pseudomonas aeruginosa, MRSA, Enterococcus faecalis. Antibiotics being directed by infectious disease specialist Peripheral vascular disease, with recent history of femoral popliteal artery bypass on 06/06/2023, subsequently, developing wound infection and dehiscence, undergoing multiple excisional debridements since then. Atrial fibrillation with controlled ventricular response Normocytic, normochromic anemia Acute leukocytosis Acute kidney injury secondary to hypotension and ATN, nonoliguric and the patient has a positive urine output. The patient remains nonoliguric, the creatinine remained stable for now. History of hypertension History of hyperlipidemia History of coronary artery disease with previous stent placement History of AAA with previous endovascular repair History of alcoholism Chronic ongoing tobacco dependence Poor overall functional performance based on the above-mentioned multiple multiple comorbidities Plan: The patient was seen and evaluated Labs and medications reviewed Overall prognosis is poor DNR CODE STATUS Antibiotics per ID service I have personally seen and examined the patient, performed the documentation and the assessment and plan as written. Number of minutes spent on the visit: 10.
--- NOTE | 2023-11-18 14:31 | P.PN ---
Subjective Progress Note Date: 11/18/23 Principal diagnosis: Reason for follow-up is bilateral lower extremity infected wounds and perforated peptic ulcer Patient is a 63-year-old male with a past medical history significant for hypertension hyperlipidemia coronary artery disease, PAD multiple vascular procedures including left femoral-tibial bypass and now has been dealing with the wound to the left lower extremity as well as wound to the right leg being managed in the outpatient setting by vascular surgery Center the hospital by the home care nurse concerning for worsening infection. Patient last wound culture positive for VRE and Pseudomonas. Patient is status post Sharp excisional debridement bilateral lower extremities along with cultures of the purulent material completed on 11/03/2023.Patient was taken to the OR 11/05/2023 found to have perforated gastric ulcer status post exploratory laparotomy repair of the perforated ulcer with modified Jasvir patch. On today's evaluation that is 11/18/2023, the patient did have low-grade fever 100.2 at 3 AM and 99.1 F this morning the patient slightly tachycardic patient remains to be lethargic slightly agitated no vomiting or diarrhea has been re ported by the nursing staff he is currently on 2 L nasal cannula oxygen. Patient did have a creatinine of 1.87 no CBC was done today Objective - Vital Signs Vital signs: Vital Signs Temp 99.1 F 11/18/23 08:00 Pulse 118 H 11/18/23 11:48 Resp 18 11/18/23 08:00 BP 121/79 11/18/23 08:00 Pulse Ox 100 11/18/23 08:00 FiO2 35 11/12/23 08:54 Intake & Output 11/17/23 11/18/23 11/18/23 18:59 06:59 18:59 Intake Total 1054.5 1065.5 Output Total 1470 1160 265 Balance -415.5 -94.5 -265 Weight 90.5 kg Intake: Intake, IV Titration 1054.5 1065.5 Amount Mvi, Adult No.4 with Vit 1065.5 K 10 ml Trace (Conc-1Ml/ Dose) 1 ml Sodium Acetate 36 meq Potassium Acetate 32 meq Calcium Gluconate 1.5 gm Magnesium Sulfate gm 1.25 gm Potassium Phosphate 9 mmol In Amino Acids 5 %/Dextrose 20 % 1,000 ml @ 95 mls/hr IV . BY DURATION [facility] Rx#: [id number] Sodium Acetate 36 meq 1054.5 Potassium Acetate 32 meq Calcium Gluconate 1.5 gm Magnesium Sulfate gm 1.25 gm Potassium Phosphate 9 mmol In Amino Acids 5 %/ Dextrose 20 % 1,000 ml @ 95 mls/hr IV .BY DURATION [facility] Rx#:[id number] Output: Gastric Drainage 300 250 Drainage 20 10 15 Abdomen 20 10 15 Urine 1450 850 Other: Voiding Method Indwelling Catheter Indwelling Catheter Indwelling Catheter ABP, PAP, CO, CI - Last Documented Arterial Blood Pressure 121/71 - Exam GENERAL DESCRIPTION: Middle-age male lying in bed in no distress RESPIRATORY SYSTEM: Unlabored breathing , decreased breath sounds at bases HEART: S1 S2 regular rate and rhythm , ABDOMEN: Soft , mild distention EXTREMITIES: Right lower extremity with necrotic woundAnd some slough tissue - Labs CBC & Chem 7: 11/17/23 06:24 11/18/23 07:27 Labs: Abnormal Lab Results - Last 24 Hours (Table) 11/17/23 11/17/23 11/18/23 Range/Units 17:06 23:57 06:18 Carbon Dioxide (22-30) mmol/L BUN (9-20) mg/dL Creatinine (0.66-1.25) mg/dL Glucose (74-99) mg/dL POC Glucose (mg/dL) 159 H 147 H 136 H (70-110) mg/dL 11/18/23 11/18/23 Range/Units 07:27 11:45 Carbon Dioxide 33 H (22-30) mmol/L BUN 53 H (9-20) mg/dL Creatinine 1.87 H (0.66-1.25) mg/dL Glucose 114 H (74-99) mg/dL POC Glucose (mg/dL) 136 H (70-110) mg/dL Assessment and Plan (1) Bilateral lower leg cellulitis Current Visit: Yes Status: Acute Code(s): L03.116 - CELLULITIS OF LEFT LOWER LIMB; L03.115 - CELLULITIS OF RIGHT LOWER LIMB SNOMED Code(s): 072061125 (2) Open wound of both lower extremities Current Visit: Yes Status: Acute Code(s): S81.801A - UNSPECIFIED OPEN WOUND, RIGHT LOWER LEG, INITIAL ENCOUNTER; S81.802A - UNSPECIFIED OPEN WOUND, LEFT LOWER LEG, INITIAL ENCOUNTER SNOMED Code(s): 55569968 (3) Sepsis Current Visit: Yes Status: Acute Code(s): A41.9 - SEPSIS, UNSPECIFIED ORGANISM SNOMED Code(s): 26837097 (4) Pneumonia Current Visit: Yes Status: Acute Code(s): J18.9 - PNEUMONIA, UNSPECIFIED ORGANISM SNOMED Code(s): 876277776 Plan: 1patient presented to hospital with sepsis in this patient who did have a fever tachycardia elevated white count source is likely bilateral lower extremity wound and cellulitis with more extensive wound to the left lower extremity in this patient who did have a history of PAD and has multiple vascular procedure last wound culture done from the right leg has been Pseudomonas and VRE that was done on 10/03/2023, culture done this admission are growing Pseudomonas aeruginosa Enterococcus faecalis that is not VRE and MRSA 2patient is status post debridement and deep culture completed on 11/03/2023 which did grow multiple pathogen including Pseudomonas Morganella Enterococcus faecalis and MRSA 3patient did have a perforated peptic ulcer status post laparotomy and modified Jasvir patch 4-patient sputum is growing stenotrophomonas concerning for gram-negative pneumonia 5-patient has been reevaluated by vascular surgery regarding ischemic right leg planning for possible revascularization once stable, 6patient did have a low-grade fever no CBC was done today, patient to continue daptomycin, Zosyn Levaquin and Eraxis keeping in mind multiple sites of inf ection and multiple pathogen that has been growing from the culture. However per the nursing staff sister want the patient to become hospice which may be appropriate hence we will hold on adding any further culture at this point care discussed with the patient nurse Dictation was produced using [employer] dictation software. please excuse any grammatical, word or spelling errors. Time with Patient: Less than 30
[2023-11-18 15:05] VITALS: BP 109/69; PULSE 113; TEMP 99.4
--- NOTE | 2023-11-18 15:34 | P.PN ---
Subjective Progress Note Date: 11/18/23 Interval History: Chief Complaint: Worsening bilateral lower legs, increased pain, edema and "split open" This is 63-year-old gentleman with past medical history significant for PAD, multiple vascular procedures including femoral-tibial bypass followed by wound development, dehiscence of his left lower extremity, status post recent excisional debridement of the left lower leg wound with skin substitute placement, excisional debridement of the left great toe wound and excisional debridement of right lower leg wound x 2 on 10/03/[address] Inman, vascular surgery, presented to the ER with worsening bilateral lower extremity pain, edema, reports right lower extremity "split open" over the last week with serous drainage. His visiting nurse evaluated patient on Monday recommending ER. Denies any chest pain, palpitations or shortness of breath. Denies nausea vomiting or diarrhea. Denies abdominal pain. Denies fever or chills. Denies lightheadedness, dizziness or focal deficits. Wound and blood cultures obtained, initiated on vancomycin in the ER. Tmax 101, WBC 16.3, increased to 19.67, CRP 12.6 .hemoglobin 7.7, platelets 468. Sodium 129, potassium 3.3, bica rb 19, BUN 10, creatinine 0.7. Lactic acid 2.2, improved with IV fluid hydration, 1.1. Magnesium 1-repeat level ordered stat. 10/31/2023 Tmax 101. WBC decreased to 15.1. reports decreased appetite. Sodium decreased to 127, renal function stable. Potassium 3.9, magnesium 1.2 - supplements ordered. Positive pain of bilateral lower extremities. Evaluated by infectious disease, antibiotics adjusted to Zyvox and meropenem. Denies chest pain, palpitations or shortness of breath. 11/01/2023 wound cultures growing Pseudomonas and Enterococcus faecalis, vancomycin and penicillin sensitive, afebrile, WBC up to 20.06, antibiotics further adjusted to Zosyn and daptomycin. Renal function stable. IV fluids adjusted yesterday to D5.9 with sodium improved up to 130. 11/02/2023 maintained on IV antibiotics as per ID. Afebrile, WBC decreased to 17.3. Hemoglobin 9.1, platelets 523. Sodium 131 on IV fluids of D5.9. Potassium 3.8, magnesium 1.8, creatinine 0.9. Pain controlled , denies chest pain, palpitations or shortness of breath, maintaining O2 sats in the high 90s on room air. Scheduled for debridement and deep cultures tomorrow with vascular surgery. 11/07/2023 remains vent dependent with FiO2 35%/5 of PEEP. Maintained on diprovan, Levophed and bicarb drips. Bicarb 20, BUN 53, creatinine 2.84. continues on daptomycin, Eraxis, Zosyn. WBC 21, afebrile. Receiving potassium supplementation for potassium 3.3. Hemoglobin 7.1, platelets 477. 11/08/2023 Vent dependent, FiO2 35%/+5 of PEEP. Unsuccessful weaning trial yesterday, not following commands. Scheduled for another weaning trial today. Bicarb 23, bicarb drip discontinued. Levophed resumed after being off for few hours during the night. Echo reported EF 55 to 60%. Telemetry atrial fibrillation with controlled ventricular rates, cardiology following. Staff reported earlier this morning right foot noted to be cooler, mottled, improved with rewrapping of Abhijeet wrap's -less tight. TPN ordered. 11/09/2023 weaning trials attempted yesterday, patient was not following commands , not opening eyes ,shaking his head [id number]. Vent dependent, FiO2 35%/+5 of PEEP. Repeat weaning trial scheduled for today. continues on Levophed. Telemetry atrial fibrillation with controlled ventricular rate. continues to have large output from SANDY drain. Afebrile, WBC increased to 15.4. Hemoglobin 7.2, platelet count 317. Bicarb 21, BUN 54, creatinine 3.27. Sputum culture reporting stenotrophomonas maltophilia, Doreen albicans. Maintained on Zosyn, Eraxis and vancomycin. 11/10/2023 Vent dependent FiO2 35%/+5 of PEEP. Maintained on Levophed. Telemetry atrial fibrillation, controlled ventricular rate. Failed weaning trial yesterday, reattempting today. Bicarb 21, BUN 54, creatinine 3.21. Afebrile, WBC increased to 18. Continues on daptomycin, Zosyn, Levaquin, Eraxis. 11/13/2023 extubated yesterday, maintaining O2 sats in the 90s on 2 L nasal cannula. Pressures soft ,maintained on Levophed. Tolerating TPN with minimal to no residual. Confused, pulling at lines. Sputum culture reported stenotrop homonas. continues on Eraxis, daptomycin, Levaquin and Zosyn. Afebrile, WBC 15.1. Hemoglobin 7.1, platelets 419. BUN 54, creatinine 3.14. 11/14/2023 maintained on 2 L nasal cannula maintaining O2 sats in the high 90s to 100% .hemoglobin 7 ,renal function continues to improve, creatinine 2.7 .remains pressor dependent. Afebrile, WBC remains at 15.1. continues on Eraxis, daptomycin, Levaquin and Zosyn. Continues on TPN.Confused. Right lower extremity reevaluated by vascular surgery with no surgical debridement recommended at this time; recommending eventual right lower extremity SFA revascularization when more stable. 11/15/2023 continues on Levophed. Diuresing with Lasix IV push as per nephrology. Renal function continues to improve, creatinine down to 2.36. maintaining O2 sats in the 90s on 2 L nasal cannula. Chest x-ray reporting stable .NPO, on TPN. Maintained on Eraxis, Zosyn, daptomycin and Levaquin as per infectious disease. 11/16/2023 Levophed weaned off yesterday.transferred out of ICU currently on stepdown unit. Remains confused, attempting to pull out lines, NG tube. Maintained on TPN/lipids. Continues on Eraxis, daptomycin, Zosyn and Levaquin. Diuresing well on Lasix IV push with 24-hour WOLF reflecting a negative fluid balance. Hemoglobin 6.7, platelets 397, creatinine decreased to 2.22 ,phosphorus 2. Complains of abdominal pain. 11/17/2023 maintained on IV push Lasix, fluid restrictions and low-salt diet ,renal function remains stable, bicarb 35, BUN 55, creatinine 2.07. Yesterday he received 1 unit of packed RBCs for hemoglobin of 6.7, hemoglobin currently 7.1 .maintained on TPN, glucose 121, sodium 144, potassium 3.2. continues on Eraxis, daptomycin, Levaquin and Zosyn .afebrile WBC 12.1.Confused with sitter at bedside. Reports abdominal pain. 11/18/2023--patient was seen and examined today. Confused, sitter at bedside. A&O x 0. Currently 2 L oxygen. Labs reviewed. Creatinine 1.87, BUN 53. Currently on Eraxis daptomycin Levaquin and Zosyn. Multiple specialties following. Postoperative day 13 of repair of perforated gastric ulcer, SANDY drain in place. Wound VAC in place. On IV diuretics. Patient's sister asked for hospice , hospice consulted. Assessment and plan: Acute hypoxic respiratory failure secondary to sepsis and septic shock related to severe cellulitis of both lower extremities and abdominal sepsis with perforated gastric ulcer and pneumoperitoneum requiring surgery as noted below. Perforated gastric ulcer and pneumoperitoneum, status post exploratory laparotomy with gastric ulcer repair with modified Jasvir patch on 11/05/2023, the patient is postop day #13 Bilateral hospital-acquired pneumonia patient is on multiple antibiotics Septic shock with hypotension and shock, recovered and off pressors Sepsis and septic shock Severe nonanion gap metabolic acidosis, significantly improved. Encephalopathy/delirium, acute metabolic encephalopathy Bilateral lower extremity wounds/cellulitis, status-post debridement on 11/03/2023. Wounds positive for polymicrobial organisms including Pseudomonas aeruginosa, MRSA, Enterococcus faecalis. Antibiotics being directed by infe ctious disease specialist Peripheral vascular disease, with recent history of femoral popliteal artery bypass on 06/06/2023, subsequently, developing wound infection and dehiscence, undergoing multiple excisional debridements since then. Atrial fibrillation with controlled ventricular response Normocytic, normochromic anemia Acute leukocytosis Acute kidney injury secondary to hypotension and ATN, nonoliguric and the patient has a positive urine output. The patient remains nonoliguric, the creatinine remained stable for now. History of hypertension History of hyperlipidemia History of coronary artery disease with previous stent placement History of AAA with previous endovascular repair History of alcoholism Chronic ongoing tobacco dependence Poor overall functional performance based on the above-mentioned multiple multiple comorbidities Plan: Monitor vitals, continue current treatment Multiple specialties following Sister decided for hospice carehospice consulted. PHYSICAL EXAMINATION: GENERAL EXAM: Revealed a 63-year-old male resting in bed, chronically ill, conf used, on 2 L nasal cannula HEAD: Normocephalic and atraumatic EYES: Normal reaction of pupils, equal size. NOSE: Clear with pink turbinates. THROAT: No erythema or exudates. NECK: No masses, no JVD. Right IJ central line catheter in place. CHEST: No chest wall deformity. LUNGS: Symmetrical chest expansion, fine crackles at the bases no rhonchi no wheezes CVS: Distant S1-S2, no S3 gallop, irregular rhythm. ABDOMEN: Midline abdominal incision with wound VAC, SANDY drain compressed and draining purulent material abdomen is soft, bowel sounds hypoactive, no appreciated organomegaly. SKIN: Bilateral lower extremities wrapped in postoperative dressing/Abhijeet Kerlix wrap, both lower extremities were unwrapped, and able to visualize the significant cellulitis in both lower extremities, obviously the right lower extremity cellulitis needs to have further debridement and vascular surgery was reconsulted CENTRAL NERVOUS SYSTEM: Patient seems to be confused, encephalopathic, does not follow simple instructions. EXTREMITIES: As noted above significant cellulitis of both lower extremities, with skin changes suggestive of ischemic changes in the right lower extremity throughout. REVIEW OF SYSTEMS: Limited review of system due to altered mental status. Dictation was produced using [employer] dictation software. please excuse any grammatical, word or spelling errors. Objective - Vital Signs Vital signs: Vital Signs Temp 99.4 F 11/18/23 12:00 Pulse 113 H 11/18/23 14:00 Resp 18 11/18/23 14:00 BP 109/69 11/18/23 12:00 Pulse Ox 98 11/18/23 12:00 FiO2 35 11/12/23 08:54 Intake & Output 11/17/23 11/18/23 11/18/23 18:59 06:59 18:59 Intake Total 1054.5 1065.5 Output Total 1470 1160 1045 Balance -415.5 -94.5 -1045 Weight 90.5 kg Intake: Intake, IV Titration 1054.5 1065.5 Amount Mvi, Adult No.4 with Vit 1065.5 K 10 ml Trace (Conc-1Ml/ Dose) 1 ml Sodium Acetate 36 meq Potassium Acetate 32 meq Calcium Gluconate 1.5 gm Magnesium Sulfate gm 1.25 gm Potassium Phosphate 9 mmol In Amino Acids 5 %/Dextrose 20 % 1,000 ml @ 95 mls/hr IV . BY DURATION MISSY Rx#: [id number] Sodium Acetate 36 meq 1054.5 Potassium Acetate 32 meq Calcium Gluconate 1.5 gm Magnesium Sulfate gm 1.25 gm Potassium Phosphate 9 mmol In Amino Acids 5 %/ Dextrose 20 % 1,000 ml @ 95 mls/hr IV .BY DURATION MISSY Rx#:[id number] Output: Gastric Drainage 300 250 Drainage 20 10 20 Abdomen 20 10 20 Urine 1450 850 775 Other: Voiding Method Indwelling Catheter Indwelling Catheter Indwelling Catheter ABP, PAP, CO, CI - Last Documented Arterial Blood Pressure 121/71 - Labs CBC & Chem 7: 11/17/23 06:24 11/18/23 07:27 Labs: Abnormal Lab Results - Last 24 Hours (Table) 11/17/23 11/17/23 11/18/23 Range/Units 17:06 23:57 06:18 Carbon Dioxide (22-30) mmol/L BUN (9-20) mg/dL Creatinine (0.66-1.25) mg/dL Glucose (74-99) mg/dL POC Glucose (mg/dL) 159 H 147 H 136 H (70-110) mg/dL 11/18/23 11/18/23 Range/Units 07:27 11:45 Carbon Dioxide 33 H (22-30) mmol/L BUN 53 H (9-20) mg/dL Creatinine 1.87 H (0.66-1.25) mg/dL Glucose 114 H (74-99) mg/dL POC Glucose (mg/dL) 136 H (70-110) mg/dL
--- NOTE | 2023-11-18 17:26 | P.DS ---
Providers Date of admission: 10/30/23 13:15 Expected date of discharge: 11/18/23 Attending physician: Elmo Thomas Consults: 10/29/23 19:53 Consult Physician Routine Consulting Provider: Nancy Obrien Consult Reason/Comments: cellulitis, sepsis Do you want consulting provider notified?: Yes, Notify in am 11/05/23 13:56 Consult Physician Stat Consulting Provider: Igor Gracia Consult Reason/Comments: Abdominal pneumoperitoneum Do you want consulting provider notified?: Yes 11/05/23 14:30 Consult Physician Stat Consulting Provider: Mukesh Crystal Consult Reason/Comments: ICU management Do you want consulting provider notified?: Already Contacted 11/06/23 08:31 Consult Physician Routine Consulting Provider: Bill Jewell Consult Reason/Comments: Oliguria Do you want consulting provider notified?: Yes 11/12/23 13:20 Consult Physician Routine Consulting Provider: William Byrnes Consult Reason/Comments: reconsult: ischemic chronic wound right lower leg Do you want consulting provider notified?: Yes Primary care physician: Elmo Thomas Hospital Course: Discharge diagnoses: Acute hypoxic respiratory failure secondary to sepsis and septic shock related to severe cellulitis of both lower extremities and abdominal sepsis with perforated gastric ulcer and pneumoperitoneum requiring surgery as noted below. Perforated gastric ulcer and pneumoperitoneum, status post exploratory laparotomy with gastric ulcer repair with modified Jasvir patch on 11/05/2023, the patient is postop day #13 Bilateral hospital-acquired pneumonia patient is on multiple antibiotics Septic shock with hypotension and shock, recovered and off pressors Sepsis and septic shock Severe nonanion gap metabolic acidosis, significantly improved. Encephalopathy/delirium, acute metabolic encephalopathy Bilateral lower extremity wounds/cellulitis, status-post debridement on 11/03/2023. Wounds positive for polymicrobial organisms including Pseudomonas aeruginosa, MRSA, Enterococcus faecalis. Antibiotics being directed by infectious disease specialist Peripheral vascular disease, with recent history of femoral popliteal artery bypass on 06/06/2023, subsequently, developing wound infection and dehiscence, undergoing multiple excisional debridements since then. Atrial fibrillation with controlled ventricular response Normocytic, normochromic anemia Acute leukocytosis Acute kidney injury secondary to hypotension and ATN, nonoliguric and the patient has a positive urine output. The patient remains nonoliguric, the creatinine remained stable for now. History of hypertension History of hyperlipidemia History of coronary artery disease with previous stent placement History of AAA with previous endovascular repair History of alcoholism Chronic ongoing tobacco dependence Poor overall functional performance based on the above-mentioned multiple multiple comorbidities Plan: Prolonged hospitalization, multiple specialties and multiple procedures Poor prognosis. Next of kin Sister decided for hospice care Hospital course: Chief Complaint: Worsening bilateral lower legs, increased pain, edema and "split open" This is 63-year-old gentleman with past medical history significant for PAD, multiple vascular procedures including femoral-tibial bypass followed by wound development, dehiscence of his left lower extremity, status post recent excisional debridement of the left lower leg wound with skin substitute placement, excisional debridement of the left great toe wound and excisional debridement of right lower leg wound x 2 on 10/03/[address] Inman, vascular surgery, presented to the ER with worsening bilateral lower extremity pain, edema, reports right lower extremity "split open" over the last week with serous drainage. His visiting nurse evaluated patient on Monday recommending ER. Denies any chest pain, palpitations or shortness of breath. Denies nausea vomiting or diarrhea. Denies abdominal pain. Denies fever or chills. Denies lightheadedness, dizziness or focal deficits. Wound and blood cultures obtained, initiated on vancomycin in the ER. Tmax 101, WBC 16.3, increased to 19.67, CRP 12.6 .hemoglobin 7.7, platelets 468. Sodium 129, potassium 3.3, bicarb 19, BUN 10, creatinine 0.7. Lactic acid 2.2, improved with IV fluid hydration, 1.1. Magnesium 1-repeat level ordered stat. 10/31/2023 Tmax 101. WBC decreased to 15.1. reports decreased appetite. Sodium decreased to 127, renal function stable. Potassium 3.9, magnesium 1.2 - supplements ordered. Positive pain of bilateral lower extremities. Evaluated by infectious disease, antibiotics adjusted to Zyvox and meropenem. Denies chest pain, palpitations or shortness of breath. 11/01/2023 wound cultures growing Pseudomonas and Enterococcus faecalis, vancomycin and penicillin sensitive, afebrile, WBC up to 20.06, antibiotics further adjusted to Zosyn and daptomycin. Renal function stable. IV fluids adjusted yesterday to D5.9 with sodium improved up to 130. 11/02/2023 maintained on IV antibiotics as per ID. Afebrile, WBC decreased to 17.3. Hemoglobin 9.1, platelets 523. Sodium 131 on IV fluids of D5.9. Potassium 3.8, magnesium 1.8, creatinine 0.9. Pain controlled , denies chest pain, palpitations or shortness of breath, maintaining O2 sats in the high 90s on room air. Scheduled for debridement and deep cultures tomorrow with vascular surgery. 11/07/2023 remains vent dependent with FiO2 35%/5 of PEEP. Maintained on diprovan, Levophed and bicarb drips. Bicarb 20, BUN 53, creatinine 2.84. continues on daptomycin, Eraxis, Zosyn. WBC 21, afebrile. Receiving potassium supplementation for potassium 3.3. Hemoglobin 7.1, platelets 477. 11/08/2023 Vent dependent, FiO2 35%/+5 of PEEP. Unsuccessful weaning trial yesterday, not following commands. Scheduled for another weaning trial today. Bicarb 23, bicarb drip discontinued. Levophed resumed after being off for few hours during the night. Echo reported EF 55 to 60%. Telemetry atrial fibrillation with controlled ventricular rates, cardiology following. Staff reported earlier this morning right foot noted to be cooler, mottled, improved with rewrapping of Abhijeet wrap's -less tight. TPN ordered. 11/09/2023 weaning trials attempted yesterday, patient was not following commands , not opening eyes ,shaking his head [id number]. Vent dependent, FiO2 35%/+5 of PEEP. Repeat weaning trial scheduled for today. continues on Levophed. Telemetry atrial fibrillation with controlled ventricular rate. continues to have large output from SANDY drain. Afebrile, WBC increased to 15.4. Hemoglobin 7.2, platelet count 317. Bicarb 21, BUN 54, creatinine 3.27. Sputum culture reporting stenotrophomonas maltophilia, Doreen albicans. Maintained on Zosyn, Eraxis and vancomycin. 11/10/2023 Vent dependent FiO2 35%/+5 of PEEP. Maintained on Levophed. Telemetry atrial fibrillation, controlled ventricular rate. Failed weaning trial yesterday, reattempting today. Bicarb 21, BUN 54, creatinine 3.21. Afebrile, WBC increased to 18. Continues on daptomycin, Zosyn, Levaquin, Eraxis. 11/13/2023 extubated yesterday, maintaining O2 sats in the 90s on 2 L nasal cannula. Pressures soft ,maintained on Levophed. Tolerating TPN with minimal to no residual. Confused, pulling at lines. Sputum culture reported stenotrophomonas. continues on Eraxis, daptomycin, Levaquin and Zosyn. Afebrile, WBC 15.1. Hemoglobin 7.1, platelets 419. BUN 54, creatinine 3.14. 11/14/2023 maintained on 2 L nasal cannula maintaining O2 sats in the high 90s to 100% .hemoglobin 7 ,renal function continues to improve, creatinine 2.7 .remains pressor dependent. Afebrile, WBC remains at 15.1. continues on Eraxis, daptomycin, Levaquin and Zosyn. Continues on TPN.Confused. Right lower extremity reevaluated by vascular surgery with no surgical debridement recommended at this time; recommending eventual right lower extremity SFA revascularization when more stable. 11/15/2023 continues on Levophed. Diuresing with Lasix IV push as per nephrology. Renal function continues to improve, creatinine down to 2.36. maintaining O2 sats in the 90s on 2 L nasal cannula. Chest x-ray reporting stable .NPO, on TPN. Maintained on Eraxis, Zosyn, daptomycin and Levaquin as per infectious disease. 11/16/2023 Levophed weaned off yesterday.transferred out of ICU currently on stepdown unit. Remains confused, attempting to pull out lines, NG tube. Maintained on TPN/lipids. Continues on Eraxis, daptomycin, Zosyn and Levaquin. Diuresing well on Lasix IV push with 24-hour WOLF reflecting a negative fluid balance. Hemoglobin 6.7, platelets 397, creatinine decreased to 2.22 ,phosphorus 2. Complains of abdominal pain. 11/17/2023 maintained on IV push Lasix, fluid restrictions and low-salt diet ,renal function remains stable, bicarb 35, BUN 55, creatinine 2.07. Yesterday he received 1 unit of packed RBCs for hemoglobin of 6.7, hemoglobin currently 7.1 .maintained on TPN, glucose 121, sodium 144, potassium 3.2. continues on Eraxis, daptomycin, Levaquin and Zosyn .afebrile WBC 12.1.Confused with sitter at bedside. Reports abdominal pain. 11/18/2023--patient was seen and examined today. Confused, sitter at bedside. A&O x 0. Currently 2 L oxygen. Labs reviewed. Creatinine 1.87, BUN 53. Currently on Eraxis daptomycin Levaquin and Zosyn. Multiple specialties fo naima. Postoperative day 13 of repair of perforated gastric ulcer, SANDY drain in place. Wound VAC in place. On IV diuretics. Patient's sister asked for hospice , hospice consulted and started on hospice care. PHYSICAL EXAMINATION: GENERAL: Use, alert and oriented x 0. PULMONARY: Equal breath souds B/L, No wheezing, No crackles. CARDIOVASCULAR: S1, S2 present. No murmurs, rubs, or gallops. ABDOMEN: Soft, nontender, nondistended, normoactive bowel sounds. No guarding or rebound tenderness. MUSCULOSKELETAL: Wounds, dressing intact. NEUROLOGICAL:Limited exam Dictation was produced using [employer] dictation software. please excuse any grammatical, word or spelling errors. Patient Condition at Discharge: Poor Plan - Discharge Summary Discharge Rx Participant: Yes New Discharge Prescriptions: No Action Metoprolol Succinate [Metoprolol Succinate ER] 25 mg PO DAILY Escitalopram [Lexapro] 10 mg PO DAILY #30 tab Potassium Chloride [Klor-Con 10 ER] 10 meq PO DAILY Furosemide [Lasix] 40 mg PO DAILY Atorvastatin [Lipitor] 40 mg PO HS Discharge Medication List Atorvastatin [Lipitor] 40 mg PO HS 07/27/23 [History] Furosemide [Lasix] 40 mg PO DAILY 07/27/23 [History] Metoprolol Succinate [Metoprolol Succinate ER] 25 mg PO DAILY 07/27/23 [History] Escitalopram [Lexapro] 10 mg PO DAILY #30 tab 08/28/23 [Rx] Potassium Chloride [Klor-Con 10 ER] 10 meq PO DAILY 09/29/23 [History] Follow up Appointment(s)/Referral(s): Elmo Thomas DO [Primary Care Provider] - 1-2 days Discharge Disposition: [facility]CH TO [facility]
== END 2023-11-18 15:57 | disposition hospice, inpatient (51) | DRG 264 ==
LOC: EC 16:26 → 4SSUR 20:12 → OBSVTOIN 10-30 13:15 → 2SICU 11-05 14:14 → 3SCARD 11-15 23:06
PROVIDERS: ADMIT Family Medicine; ATTEND Family Medicine
PROC: 0KBT0ZZ Excision of Left Lower Leg Muscle, Open Approach (ICD-10-PCS; 2023-11-03)
PROC: 0KBS0ZZ Excision of Right Lower Leg Muscle, Open Approach (ICD-10-PCS; 2023-11-03)
PROC: 0QBR0ZZ Excision of Left Toe Phalanx, Open Approach (ICD-10-PCS; 2023-11-03)
PROC: 0JBQ0ZZ Excision of Right Foot Subcutaneous Tissue and Fascia, Open Approach (ICD-10-PCS; principal; 2023-11-03 08:45)
PROC: 0DQ60ZZ Repair Stomach, Open Approach (ICD-10-PCS; 2023-11-05)
PROC: 0W9G00Z Drainage of Peritoneal Cavity with Drainage Device, Open Approach (ICD-10-PCS; 2023-11-05)
PROC: 5A1955Z Respiratory Ventilation, Greater than 96 Consecutive Hours (ICD-10-PCS; 2023-11-05)
PROC: 3E053XZ Introduction of Vasopressor into Peripheral Artery, Percutaneous Approach (ICD-10-PCS; 2023-11-05)
PROC: 30233J1 Transfusion of Nonautologous Serum Albumin into Peripheral Vein, Percutaneous Approach (ICD-10-PCS; 2023-11-05)
PROC: 3E0336Z Introduction of Nutritional Substance into Peripheral Vein, Percutaneous Approach (ICD-10-PCS; 2023-11-08)
PROC: 30233N1 Transfusion of Nonautologous Red Blood Cells into Peripheral Vein, Percutaneous Approach (ICD-10-PCS; 2023-11-16)
PROC: 6A550Z0 Pheresis of Erythrocytes, Single (ICD-10-PCS; 2023-11-17)
DX: T82.7XXA Infection and inflammatory reaction due to other cardiac and vascular devices, implants and grafts, initial encounter (principal); A41.01 Sepsis due to Methicillin susceptible Staphylococcus aureus; J96.01 Acute respiratory failure with hypoxia; N17.0 Acute kidney failure with tubular necrosis; R65.21 Severe sepsis with septic shock; K65.1 Peritoneal abscess; K25.5 Chronic or unspecified gastric ulcer with perforation; G93.41 Metabolic encephalopathy; E43 Unspecified severe protein-calorie malnutrition; J95.851 Ventilator associated pneumonia; J90 Pleural effusion, not elsewhere classified; T81.32XA Disruption of internal operation (surgical) wound, not elsewhere classified, initial encounter; B37.0 Candidal stomatitis; F05 Delirium due to known physiological condition; E87.21 Acute metabolic acidosis; L03.115 Cellulitis of right lower limb; L03.116 Cellulitis of left lower limb; I48.19 Other persistent atrial fibrillation; E87.1 Hypo-osmolality and hyponatremia; L97.812 Non-pressure chronic ulcer of other part of right lower leg with fat layer exposed; L97.825 Non-pressure chronic ulcer of other part of left lower leg with muscle involvement without evidence of necrosis; L98.495 Non-pressure chronic ulcer of skin of other sites with muscle involvement without evidence of necrosis; Z51.5 Encounter for palliative care; Z66 Do not resuscitate; K70.31 Alcoholic cirrhosis of liver with ascites; E83.39 Other disorders of phosphorus metabolism; L89.612 Pressure ulcer of right heel, stage 2; L97.522 Non-pressure chronic ulcer of other part of left foot with fat layer exposed; I70.201 Unspecified atherosclerosis of native arteries of extremities, right leg; Z91.148 Patient's other noncompliance with medication regimen for other reason; Z91.199 Patient's noncompliance with other medical treatment and regimen due to unspecified reason; Z95.820 Peripheral vascular angioplasty status with implants and grafts; I10 Essential (primary) hypertension; I70.245 Atherosclerosis of native arteries of left leg with ulceration of other part of foot; D50.9 Iron deficiency anemia, unspecified; F10.20 Alcohol dependence, uncomplicated; K66.0 Peritoneal adhesions (postprocedural) (postinfection); I25.10 Atherosclerotic heart disease of native coronary artery without angina pectoris; E78.5 Hyperlipidemia, unspecified; F17.210 Nicotine dependence, cigarettes, uncomplicated; E83.42 Hypomagnesemia; E87.6 Hypokalemia; Y95 Nosocomial condition; B96.5 Pseudomonas (aeruginosa) (mallei) (pseudomallei) as the cause of diseases classified elsewhere; B95.2 Enterococcus as the cause of diseases classified elsewhere; B95.62 Methicillin resistant Staphylococcus aureus infection as the cause of diseases classified elsewhere; E87.70 Fluid overload, unspecified; L98.492 Non-pressure chronic ulcer of skin of other sites with fat layer exposed; Y83.2 Surgical operation with anastomosis, bypass or graft as the cause of abnormal reaction of the patient, or of later complication, without mention of misadventure at the time of the procedure; Z86.79 Personal history of other diseases of the circulatory system; Z78.1 Physical restraint status; I25.2 Old myocardial infarction; Z95.5 Presence of coronary angioplasty implant and graft; Z86.14 Personal history of Methicillin resistant Staphylococcus aureus infection; Z79.899 Other long term (current) drug therapy
CPT/HCPCS: 36415; 70450; 71045; 74018; 74176; 80048; 80053; 81001; 82140; 82330; 82550; 82805; 83605; 83735; 84100; 84132; 84478; 85025; 86140; 86850; 86900; 86901; 86920; 87040; 87070; 87075; 87077; 87186; 87205; 93306; 94002; 94003; 94640; 94760; 96361; 96365; 96366; 96368; 96375; 99285

== ENCOUNTER 2023-11-18 15:23 | Inpatient (IN) | payer MEDICAID ==
[2023-11-18] MEDS ORDERED: ACETAMINOPHEN SUPPOSITORY 650 MG SUPP RECTAL PRN (15:47)
[2023-11-18] MEDS ORDERED: ONDANSETRON 4 MG/2 ML VIAL IVP PRN (15:47)
[2023-11-18] MEDS ORDERED: METOCLOPRAMIDE 5 MG/ML 2 ML VIAL IVP PRN (15:47)
[2023-11-18] MEDS ORDERED: HALOPERIDOL LACTATE 5 MG/ML 1 ML VIAL IM PRN (15:47)
[2023-11-18] MEDS: MORPHINE SULFATE 100 MG in SODIUM CHLORIDE 0.9% 90 ML IV SCH (16:52)
[2023-11-18] MEDS: SCOPOLAMINE 1 MG/72 HR PATCH TRANSDERM SCH (17:03)
[2023-11-18] MEDS: LORazepam 2 MG/ML INJ IV PRN (17:05)
[2023-11-18] MEDS: SODIUM CHLORIDE 0.9% 1,000 ML IV SCH (18:05)
[2023-11-19] MEDS: ATROPINE OPHTH SOLN 1% 5ML BTL SUBLINGUAL PRN (01:45)
--- NOTE | 2023-11-19 13:29 | P.HPIM ---
History of Present Illness H&P Date: 11/19/23 History of present illness: Chief Complaint: Worsening bilateral lower legs, increased pain, edema and "split open" This is 63-year-old gentleman with past medical history significant for PAD, multiple vascular procedures including femoral-tibial bypass followed by wound development, dehiscence of his left lower extremity, status post recent excisional debridement of the left lower leg wound with skin substitute placement, excisional debridement of the left great toe wound and excisional debridement of right lower leg wound x 2 on 10/03/[address] Inman, vascular surgery, presented to the ER with worsening bilateral lower extremity pain, edema, reports right lower extremity "split open" over the last week with serous drainage. His visiting nurse evaluated patient on Monday recommending ER. Denies any chest pain, palpitations or shortness of breath. Denies nausea vomiting or diarrhea. Denies abdominal pain. Denies fever or chills. Denies lightheadedness, dizziness or focal deficits. Wound and blood cultures obtained, initiated on vancomycin in the ER. Tmax 101, WBC 16.3, increased to 19.67, CRP 12.6 .hemoglobin 7.7, platelets 468. Sodium 129, potassium 3.3, bicarb 19, BUN 10, creatinine 0.7. Lactic acid 2.2, improved with IV fluid hydration, 1.1. Magnesium 1-repeat level ordered stat. 10/31/2023 Tmax 101. WBC decreased to 15.1. reports decreased appetite. Sodium decreased to 127, renal function stable. Potassium 3.9, magnesium 1.2 - s upplements ordered. Positive pain of bilateral lower extremities. Evaluated by infectious disease, antibiotics adjusted to Zyvox and meropenem. Denies chest pain, palpitations or shortness of breath. 11/01/2023 wound cultures growing Pseudomonas and Enterococcus faecalis, vancomycin and penicillin sensitive, afebrile, WBC up to 20.06, antibiotics further adjusted to Zosyn and daptomycin. Renal function stable. IV fluids adjusted yesterday to D5.9 with sodium improved up to 130. 11/02/2023 maintained on IV antibiotics as per ID. Afebrile, WBC decreased to 17.3. Hemoglobin 9.1, platelets 523. Sodium 131 on IV fluids of D5.9. Potassium 3.8, magnesium 1.8, creatinine 0.9. Pain controlled , denies chest pain, palpitations or shortness of breath, maintaining O2 sats in the high 90s o n room air. Scheduled for debridement and deep cultures tomorrow with vascular surgery. 11/07/2023 remains vent dependent with FiO2 35%/5 of PEEP. Maintained on diprovan, Levophed and bicarb drips. Bicarb 20, BUN 53, creatinine 2.84. continues on daptomycin, Eraxis, Zosyn. WBC 21, afebrile. Receiving potassium supplementation for potassium 3.3. Hemoglobin 7.1, platelets 477. 11/08/2023 Vent dependent, FiO2 35%/+5 of PEEP. Unsuccessful weaning trial yesterday, not following commands. Scheduled for another weaning trial today. Bicarb 23, bicarb drip discontinued. Levophed resumed after being off for few hours during the night. Echo reported EF 55 to 60%. Telemetry atrial fibrillation with controlled ventricular rates, cardiology following. Staff reported earlier this morning right foot noted to be cooler, mottled, improved with rewrapping of Abhijeet wrap's -less tight. TPN ordered. 11/09/2023 weaning trials attempted yesterday, patient was not following commands , not opening eyes ,shaking his head [id number]. Vent dependent, FiO2 35%/+5 of PEEP. Repeat weaning trial scheduled for today. continues on Levophed. Telemetry atrial fibrillation with controlled ventricular rate. continues to have large output from SANDY drain. Afebrile, WBC increased to 15.4. Hemoglobin 7.2, platelet count 317. Bicarb 21, BUN 54, creatinine 3.27. Sputum culture reporting stenotrophomonas maltophilia, Doreen albicans. Maintained on Zosyn, Eraxis and vancomycin. 11/10/2023 Vent dependent FiO2 35%/+5 of PEEP. Maintained on Levophed. Telemetry atrial fibrillation, controlled ventricular rate. Failed weaning trial yesterday, reattempting today. Bicarb 21, BUN 54, creatinine 3.21. Afebrile, WBC increased to 18. Continues on daptomycin, Zosyn, Levaquin, Eraxis. 11/13/2023 extubated yesterday, maintaining O2 sats in the 90s on 2 L nasal cannula. Pressures soft ,maintained on Levophed. Tolerating TPN with minimal to no residual. Confused, pulling at lines. Sputum culture reported stenotrophomonas. continues on Eraxis, daptomycin, Levaquin and Zosyn. Afebrile, WBC 15.1. Hemoglobin 7.1, platelets 419. BUN 54, creatinine 3.14. 11/14/2023 maintained on 2 L nasal cannula maintaining O2 sats in the high 90s to 100% .hemoglobin 7 ,renal function continues to improve, creatinine 2.7 .remains pressor dependent. Afebrile, WBC remains at 15.1. continues on Eraxis, daptomyc in, Levaquin and Zosyn. Continues on TPN.Confused. Right lower extremity reevaluated by vascular surgery with no surgical debridement recommended at this time; recommending eventual right lower extremity SFA revascularization when more stable. 11/15/2023 continues on Levophed. Diuresing with Lasix IV push as per nephrology. Renal function continues to improve, creatinine down to 2.36. maintaining O2 sats in the 90s on 2 L nasal cannula. Chest x-ray reporting stable .NPO, on TPN. Maintained on Eraxis, Zosyn, daptomycin and Levaquin as per infectious disease. 11/16/2023 Levophed weaned off yesterday.transferred out of ICU currently on stepdown unit. Remains confused, attempting to pull out lines, NG tube. Maintained on TPN/lipids. Continues on Eraxis, daptomycin, Zosyn and Levaquin. Diuresing well on Lasix IV push with 24-hour WOLF reflecting a negative fluid balance. Hemoglobin 6.7, platelets 397, creatinine decreased to 2.22 ,phosphorus 2. Complains of abdominal pain. 11/17/2023 maintained on IV push Lasix, fluid restrictions and low-salt diet ,renal function remains stable, bicarb 35, BUN 55, creatinine 2.07. Yesterday he received 1 unit of packed RBCs for hemoglobin of 6.7, hemoglobin currently 7.1 .maintained on TPN, glucose 121, sodium 144, potassium 3.2. continues on Eraxis, daptomycin, Levaquin and Zosyn .afebrile WBC 12.1.Confused with sitter at bedside. Reports abdominal pain. 11/18/2023--patient was seen and examined today. Confused, sitter at bedside. A&O x 0. Currently 2 L oxygen. Labs reviewed. Creatinine 1.87, BUN 53. Currently on Eraxis daptomycin Levaquin and Zosyn. Multiple specialties following. Postoperative day 13 of repair of perforated gastric ulcer, SANDY drain in place. Wound VAC in place. On IV diuretics. Patient's sister asked for hospice , hospice consulted. Patient started on hospice care. 11/19/2023--patient currently comfort measures only, continue hospice care. Assessment and plan: Hospice care: Acute hypoxic respiratory failure secondary to sepsis and septic shock related to severe cellulitis of both lower extremities and abdominal sepsis with perforated gastric ulcer and pneumoperitoneum requiring surgery as noted below. Perforated gastric ulcer and pneumoperitoneum, status post exploratory laparotomy with gastric ulcer repair with modified Jasvir patch on 11/05/2023, the patient is postop day #14 Bilateral hospital-acquired pneumonia treated with on multiple antibiotics Septic shock with hypotension and shock, recovered and off pressors Sepsis and septic shock Severe nonanion gap metabolic acidosis, resolved Encephalopathy/delirium, acute metabolic encephalopathy Bilateral lower extremity wounds/cellulitis, status-post debridement on 11/03/2023. Wounds positive for polymicrobial organisms including Pseudomonas aeruginosa, MRSA, Enterococcus faecalis. Was on antibiotic, was seen by ID. Peripheral vascular disease, with recent history of femoral popliteal artery bypass on 06/06/2023, subsequently, developing wound infection and dehiscence, undergoing multiple excisional debridements since then. Atrial fibrillation with controlled ventricular response Normocytic, normochromic anemia Acute leukocytosis Acute kidney injury secondary to hypotension and ATN, nonoliguric and the patient has a positive urine output. The patient remains nonoliguric, the creatinine remained stable for now. History of hypertension History of hyperlipidemia History of coronary artery disease with previous stent placement History of AAA with previous endovascular repair History of alcoholism Chronic ongoing tobacco dependence Poor overall functional performance based on the above-mentioned multiple multiple comorbidities Plan: Prolonged hospitalization, multiple specialties and multiple procedures Poor prognosis. Next of kin Sister decided for hospice care Continue hospice care. REVIEW OF SYSTEMS: Limited review of system. PHYSICAL EXAMINATION: GENERAL: Use, alert and oriented x 0. PULMONARY: Equal breath souds B/L, No wheezing, No crackles. CARDIOVASCULAR: S1, S2 present. No murmurs, rubs, or gallops. ABDOMEN: Soft, nontender, nondistended, normoactive bowel sounds. No guarding or rebound tenderness. MUSCULOSKELETAL: Wounds, dressing intact. NEUROLOGICAL:Limited exam Dictation was produced using [employer] dictation software. please excuse any grammatical, word or spelling errors. Past Medical History Past Medical History: Coronary Artery Disease (CAD), Chest Pain / Angina, Hyperlipidemia, Hypertension, Myocardial Infarction ([place]), Skin Disorder, Vascular Disorder Additional Past Medical History / Comment(s): AAA. Hx gout. Left and rt lower leg wounds, rt grt toe wound.- visiting nurse comes to house qod for dressing change . edema to left lower leg Last Myocardial Infarction Date:: 2010 History of Any Multi-Drug Resistant Organisms: MRSA, VRE Date of last positivie culture/infection: 11/12/23 - VRE; 11/03/2023 - MRSA MDRO Source:: MRSA - L LEG ;VRE - RT LEG Past Surgical History: Heart Catheterization With Stent, Orthopedic Surgery Additional Past Surgical History / Comment(s): LT WRIST SX, UNSURE IF ANY METAL PLACED. Lt.ankle surgery, 11 screws. Stent x1. EXPLORATORY LAPAROTOMY, UNABLE TO REPAIR AAA, Stent to Abdominal Aortic Aneurysm 2022, Lt. fem-pop artery bypass w/ insitu greater saphenous vein graft 06/06/23, leg wound on left with debridement. Past Anesthesia/Blood Transfusion Reactions: Previous Problems w/ Anesthesia Additional Past Anesthesia/Blood Transfusion Reaction / Comment(s): "Takes a lot to put him out.". Pt. states he woke up once during surgery. Date of Last Stent Placement:: 2010 Past Psychological History: Anxiety Additional Psychological History / Comment(s): Anxiety w/ "hospital things". Smoking Status: Current every day smoker Past Alcohol Use History: Occasional Additional Past Alcohol Use History / Comment(s): Normally SMOKES couple cigarettes a day, started smoking age 24. DRINKING 2-3 LIQUOR DRINKS DAILY. Past Drug Use History: None Reported Additional Drug Use History / Comment(s): Uses marijuana daily, half a joint. Instructed to hold 24 hrs prior to procedure - Past Family History Father Family Medical History: Cancer Additional Family Medical History / Comment(s): AGE 72 [place] CA W/ METS Mother Family Medical History: Hypertension Medications and Allergies Home Medications Medication Instructions Recorded Confirmed Type Atorvastatin [Lipitor] 40 mg PO HS 07/27/23 11/18/23 History Furosemide [Lasix] 40 mg PO DAILY 07/27/23 11/18/23 History Metoprolol Succinate [Metoprolol 25 mg PO DAILY 07/27/23 11/18/23 History Succinate ER] Escitalopram [Lexapro] 10 mg PO DAILY #30 tab 08/28/23 11/18/23 Rx Potassium Chloride [Klor-Con 10 ER] 10 meq PO DAILY 09/29/23 11/18/23 History Allergies Allergy/AdvReac Type Severity Reaction Status Date / Time No Known Allergies Allergy Verified 10/29/23 19:28 Physical Exam Vitals: Vital Signs Pulse Resp 11/19/23 12:48 7 L 11/19/23 10:58 6 L 11/19/23 08:00 117 H 10 L 11/19/23 04:00 10 L 11/19/23 02:00 8 L 11/19/23 00:00 10 L 11/18/23 20:02 10 L Intake and Output 11/18/23 11/19/23 11/19/23 22:59 06:59 14:59 Output Total 550 500 325 Balance -550 -500 -325 Output: Gastric Drainage 0 Urine 550 500 325 Stool 0 Urine/Stool Mix 0 Emesis 0 Oral Regurgitation 0 Other 0 Other: Voiding Method Indwelling Catheter # Voids 0 # Bowel Movements 0 Weight 90.5 kg 90.5 kg
[2023-11-19] MEDS: GLYCOPYRROLATE 0.2 MG/ML 2 ML VIAL IVP PRN (16:31)
--- NOTE | 2023-11-20 12:32 | P.PN ---
Subjective Progress Note Date: 11/20/23 Currently on [facility] hospice. Appears comfortable on morphine drip. Objective - Vital Signs Vital signs: Vital Signs Temp Pulse 122 H 11/20/23 07:56 Resp 8 L 11/20/23 07:56 BP Pulse Ox FiO2 Intake & Output 11/19/23 11/20/23 11/20/23 18:59 06:59 18:59 Intake Total 75.25 Output Total 525 650 Balance -449.75 -650 Weight 89 kg Intake: Intake, IV Titration 75.25 Amount Morphine Sulfate 100 mg 75.25 In Sodium Chloride 0.9% 90 ml @ 3 MG/HR 3 mls/hr IV .Q24H [facility] Rx#: [id number] Output: Gastric Drainage 0 Urine 525 650 Stool 0 Urine/Stool Mix 0 Emesis 0 Oral Regurgitation 0 Other 0 Other: Voiding Method Indwelling Catheter Indwelling Catheter Indwelling Catheter # Voids 0 # Bowel Movements 0 - Exam General: Sedated on morphine drip, appears comfortable Respiratory: Unlabored, shallow CV: Irregular, tachycardic Assessment and Plan Assessment: Hospice care: Acute hypoxic respiratory failure secondary to sepsis and septic shock related to severe cellulitis of both lower extremities and abdominal sepsis with perforated gastric ulcer and pneumoperitoneum requiring surgery as noted below. Perforated gastric ulcer and pneumoperitoneum, status post exploratory laparotomy with gastric ulcer repair with modified Jasvir patch on 11/05/2023 Bilateral hospital-acquired pneumonia treated with on multiple antibiotics Septic shock with hypotension and shock, recovered and off pressors Sepsis and septic shock Severe nonanion gap metabolic acidosis, resolved Encephalopathy/delirium, acute metabolic encephalopathy Bilateral lower extremity wounds/cellulitis, status-post debridement on 11/03/2023. Wounds positive for polymicrobial organisms including Pseudomonas aeruginosa, MRSA, Enterococcus faecalis. Was on antibiotic, was seen by ID. Peripheral vascular disease, with recent history of femoral popliteal artery bypass on 06/06/2023, subsequently, developing wound infection and dehiscence, undergoing multiple excisional debridements since then. Atrial fibrillation with controlled ventricular response Normocytic, normochromic anemia Acute leukocytosis Acute kidney injury secondary to hypotension and ATN, nonoliguric and the patient has a positive urine output. The patient remains nonoliguric, the creatinine remained stable for now. History of hypertension History of hyperlipidemia History of coronary artery disease with previous stent placement History of AAA with previous endovascular repair History of alcoholism Chronic ongoing tobacco dependence Poor overall functional performance based on the above-mentioned multiple multiple comorbidities GIP hospice Plan: Maintain comfort care on [facility] hospice. The impression and plan of care has been dictated as directed. : I performed a history and examination of this patient, discussed the same with the dictator. I agree with the dictator's note ,documented as a scribe. Any additional findings or plans will be noted.
[2023-11-20 16:03] VITALS: PULSE 157; RESP 15
[2023-11-20] MEDS: LORazepam 2 MG/ML INJ IV PRN (16:08)
== END 2023-11-20 18:32 | disposition expired | DRG 951 ==
LOC: 3SCARD 16:29
PROVIDERS: ADMIT Family Medicine; ATTEND Family Medicine
DX: Z51.5 Encounter for palliative care (principal); A41.9 Sepsis, unspecified organism; G93.41 Metabolic encephalopathy; J18.9 Pneumonia, unspecified organism; J96.01 Acute respiratory failure with hypoxia; K25.5 Chronic or unspecified gastric ulcer with perforation; K65.1 Peritoneal abscess; N17.0 Acute kidney failure with tubular necrosis; R65.21 Severe sepsis with septic shock; E87.20 Acidosis, unspecified; L03.115 Cellulitis of right lower limb; L03.116 Cellulitis of left lower limb; F10.21 Alcohol dependence, in remission; I73.9 Peripheral vascular disease, unspecified; Z66 Do not resuscitate; I10 Essential (primary) hypertension; B96.5 Pseudomonas (aeruginosa) (mallei) (pseudomallei) as the cause of diseases classified elsewhere; D64.9 Anemia, unspecified; E78.5 Hyperlipidemia, unspecified; F17.200 Nicotine dependence, unspecified, uncomplicated; F41.9 Anxiety disorder, unspecified; I25.10 Atherosclerotic heart disease of native coronary artery without angina pectoris; I25.2 Old myocardial infarction; I48.91 Unspecified atrial fibrillation; Y95 Nosocomial condition; M10.9 Gout, unspecified; Z86.14 Personal history of Methicillin resistant Staphylococcus aureus infection; Z79.899 Other long term (current) drug therapy; Z86.79 Personal history of other diseases of the circulatory system; Z95.5 Presence of coronary angioplasty implant and graft